=== PATIENT | male | born 1965 | race Caucasian/White ===

== ENCOUNTER → 2018-05-21 08:19 | Outpatient (CLI) | payer MEDICAID, SELFPAY ==
--- NOTE | 2018-05-21 08:46 | XR_ITS ---
XR chest 2V HISTORY: ITS.REASON: cough shortness of air, chest pain, COPD ORDERING PHYSICIAN: Ciara Adame PATIENT AGE: 52 years COMPARISON: 01/03/2018 FINDINGS: The cardiomediastinal silhouette and pulmonary vascularity are within normal limits. There is hyperinflation with attenuation of peripheral pulmonary vessels consistent with COPD. Nodular opacity overlies the left sixth rib anteriorly may be due to nipple shadow and could be confirmed with nipple markers. Cannot completely exclude pulmonary nodule. Lungs are otherwise clear. No acute bony findings. IMPRESSION: COPD, no acute finding. Possible nipple shadow left lower lung zone which could be confirmed with nipple markers to exclude a pulmonary nodule
[2018-05-21 09:13] LABS: Basophils % 0.4 % (0.1-2.0); Eosinophils % 0.5 % (0.1-12.0); Hematocrit 50.4 % (42.0-52.0); Hemoglobin 15.7 g/dL (14.1-18.0); Lymphocytes # 1.4 K/mm3 (0.7-4.5); Lymphocytes % 19.4 % (10-50); Mean Corpuscular HGB Conc 31.2 g/dL (31.8-35.4); Mean Corpuscular Hemoglobin 31.1 pg (27.0-31.2); Mean Corpuscular Volume 99.7 fl (80-94); Mean Platelet Volume 7.6 fl (7.4-10.4); Monocytes # 0.5 K/mm3 (0.1-1.0); Monocytes % 6.5 % (1.7-9.3); Neutrophils # 5.1 K/mm3 (1.8-7.8); Neutrophils % 73.1 % (37.0-80.0); Platelet Count 285 K/mm3 (142-424); Red Blood Count 5.05 M/mm3 (4.60-6.20); Red Cell Distribution Width 13.5 % (11.5-17.5)
[2018-05-21 09:31] LABS: Hemoglobin A1C 5.5 % (0.0-7.0)
[2018-05-21 10:02] LABS: Alanine Aminotransferase 17 U/L (12-78); Albumin Level 3.2 gm/dL (3.4-5.0); Albumin/Globulin Ratio 0.8 (1.1-1.8); Alkaline Phosphatase 76 U/L (46-116); Anion Gap 9.5 mEq/L (5-15); Aspartate Amino Transferase 13 U/L (15-37); Bilirubin,Total 0.4 mg/dL (0.2-1.0); Blood Urea Nitrogen 16 mg/dL (7-18); Calcium 9.5 mg/dL (8.5-10.1); Carbon Dioxide 34 mmol/L (21.0-32.0); Chloride 102 mmol/L (98-107); Chol/HDL Ratio 4.3 (1-3.5); Cholesterol 155 mg/dL (140-200); Creatinine,Serum 0.88 mg/dL (0.70-1.30); Estimated Glomerular Filt Rate 92 ml/min (>60); Free T4 (Free Thyroxine) 1.24 ng/dl (0.76-1.46); GFR (African American) 111 ML/MIN (>60); Globulin 3.8 gm/dl (1.3-3.2); Glucose 100 mg/dL (74-106); HDL Cholesterol 36 mg/dL (27-67); LDL Cholesterol 108 mg/dL (0-130); Potassium 4.5 mmoL/L (3.5-5.1); Sodium 141 mmol/L (136-145); Thyroid Stimulating Hormone 2.46 uIU/ml (0.358-3.740); Triglycerides 53 mg/dL (30-200); VLDL Cholesterol 11 mg/dL (0-40)
[2018-05-22 13:36] LABS: Vitamin D 25 Hydroxy 13.9 ng/mL (30.0-100.0)
== END ==
PROVIDERS: PCP Emergency Medicine; Visit Provider Nurse Practitioner Family
DX: R05 Cough (principal); R53.83 Other fatigue; E55.9 Vitamin D deficiency, unspecified; F17.200 Nicotine dependence, unspecified, uncomplicated; Z13.1 Encounter for screening for diabetes mellitus; Z13.220 Encounter for screening for lipoid disorders
CPT/HCPCS: 36415; 71046; 80053; 80061; 82652; 83036; 84439; 84443; 85025

== ENCOUNTER 2018-09-20 18:27 | Emergency (ER) | payer MEDICAID, SELFPAY ==
--- NOTE | 2018-09-20 18:44 | XR_ITS ---
XR chest portable HISTORY: COPD exacerbation, smoker ITS.REASON: copd ORDERING PHYSICIAN: Sai Anderson MD PATIENT AGE: 53 years COMPARISON: 05/21/2018 FINDINGS: The cardiomediastinal silhouette and pulmonary vascularity are within normal limits. Changes of COPD. Coarsened bronchovascular markings. Consolidation is present in the left lower lobe consistent with pneumonia with small effusion. No acute bony anomalies. IMPRESSION: COPD with left lower lobe pneumonia and small effusion
--- NOTE | 2018-09-20 18:45 | [facility].EDGENADL ---
ED Disposition Clinical Impression: COPD (chronic obstructive pulmonary disease) Qualifiers: COPD type: COPD with acute exacerbation Qualified Code(s): J44.1 - Chronic obstructive pulmonary disease with (acute) exacerbation Disposition: Home, Self-Care Condition on Discharge: Good Instructions: DI for Chronic Obstructive Pulmonary Disease Prescriptions: Albuterol Sulfate [Albuterol Sulfate 2.5mg/0.5ml Neb] 2.5 mg IH Q6 #1 neb levoFLOXacin [Levaquin 500mg tab] 500 mg PO DAILY #7 tab methylPREDNISolone [Medrol 4mg tab] 4 mg PO DIRECTED #21 tab Referrals: Ciara Adame APRN [Primary Care Provider] - - Critical Care Critical Care Time: No Attestation: On 09/20/18, the high probability of a clinically significant, sudden or life threatening deterioration of the following system(s) required my full and direct attention, intervention and personal management. The time I documented below is in addition to time spent performing reported procedures but includes the following listed in this critical care notation. Medical Decision Making - Medical Records Medical records reviewed: Yes: I reviewed the patient's medical records. - [place]twan Inquiry Pt receiving controlled substance: No Vital Signs: 09/20/18 18:54 09/20/18 18:58 Temperature 98.6 F Temperature Source Oral Pulse Rate [Left Radial] 93 H 136 H Respiratory Rate 35 H 35 H Blood Pressure [Right Arm] 174/110 H 150/95 H Blood Pressure Mean [Right Arm] 131 113 Blood Pressure Source [Right Arm] Automatic Cuff Automatic Cuff Blood Pressure Position [Right Arm] Sitting Sitting 02 Sat by Pulse Oximetry 93 L Oxygen Delivery Method Nasal Cannula Oxygen Flow Rate (LPM) 2 - Lab Data Lab results reviewed: Yes: I reviewed the patient's lab results. Lab Results 09/20/18 18:45: WBC 10.9 H, RBC 5.31, Hgb 17.1, Hct 49.9, MCV 94.1 H, MCH 32.3 H, MCHC 34.3, RDW 13.1, Plt Count 231, MPV 7.9, Neut % (Auto) 80.5 H, Lymph % (Auto) 10.0, [place] % (Auto) 8.8, Eos % (Auto) 0.4, Baso % (Auto) 0.4, Neut # (Auto) 8.7 H, Lymph # (Auto) 1.1, [place] # (Auto) 1.0, Eos # (Auto) 0.0, Baso # (Auto) 0.0 09/20/18 18:45: D-Dimer 380 09/20/18 18:45: Sodium 137, Potassium 4.2, Chloride 96 L, Carbon Dioxide 32, Anion Gap 13.2, BUN 16, Creatinine 0.88, Estimated Creat Clear 118, Estimated GFR 91, Est GFR ( Amer) 110, Glucose 116 H, Calcium 9.4, Total Bilirubin 1.0, AST 28, ALT 34, Alkaline Phosphatase 96, Troponin I < 0.02, Total Protein 7.8, Albumin 3.2 L, Globulin 4.6 H, Albumin/Globulin Ratio 0.7 L 09/20/18 18:45: Lactate 1.1 Result diagrams: 09/20/18 18:45 09/20/18 18:45 Orders (Tests/Meds): ED MEDICATIONS Discontinued Medications Generic Name Dose Route Start Last Admin Trade Name Freq PRN Reason Stop Dose Admin Albuterol/Ipratropium 3 ml 09/20/18 18:45 09/20/18 18:58 Duoneb 3ml Neb IH 09/20/18 18:46 3 ml ONCE ONE Administration Methylprednisolone Sodium Succinate 125 mg 09/20/18 18:45 09/20/18 18:58 Solu-Medrol 125mg/2ml Vial IV 09/20/18 18:46 125 mg ONCE ONE Administration ORDERS Category Date Time Status XR chest portable Stat Exams 09/20/18 18:44 Taken Blood Culture Stat Micro 09/20/18 18:45 Received ECG Request by /Griselda Stat Y 09/20/18 18:44 Ordered - Radiology Data #1 Image(s): Chest Image Reviewed: Yes I reviewed the patient's radiology image Preliminary Findings: Abnormal (basilar atelec or early infiltrate) - ECG Data Tracing #1 I reviewed this ECG and interpreted as documented below: Normal Sinus Rhythm: No (st 137 no stemi) Medical Decision Narrative: pt improved, refused hospital admission, levaquin, proventil neb, medrol, see your doctor, return if worse General Adult HPI - General Stated complaint: sob Time Seen by Provider: 09/20/18 18:46 Source of Information: Patient - History of Present Illness HPI narrative: mild to mod cough and short of breath today, hx copd and home oxygen
--- NOTE | 2018-09-20 18:48 | ED_ITS ---
ED Disposition Clinical Impression: COPD (chronic obstructive pulmonary disease) Qualifiers: COPD type: COPD with acute exacerbation Qualified Code(s): J44.1 - Chronic obstructive pulmonary disease with (acute) exacerbation Disposition: Home, Self-Care Condition on Discharge: Good Instructions: DI for Chronic Obstructive Pulmonary Disease Prescriptions: Albuterol Sulfate [Albuterol Sulfate 2.5mg/0.5ml Neb] 2.5 mg IH Q6 #1 neb levoFLOXacin [Levaquin 500mg tab] 500 mg PO DAILY #7 tab methylPREDNISolone [Medrol 4mg tab] 4 mg PO DIRECTED #21 tab Referrals: Ciara Adame APRN [Primary Care Provider] - - Critical Care Critical Care Time: No Attestation: On 09/20/18, the high probability of a clinically significant, sudden or life threatening deterioration of the following system(s) required my full and direct attention, intervention and personal management. The time I documented below is in addition to time spent performing reported procedures but includes the following listed in this critical care notation. Medical Decision Making - Medical Records Medical records reviewed: Yes: I reviewed the patient's medical records. - Antwan Inquiry Pt receiving controlled substance: No Vital Signs: 09/20/18 18:54 09/20/18 18:58 Temperature 98.6 F Temperature Source Oral Pulse Rate [Left Radial] 93 H 136 H Respiratory Rate 35 H 35 H Blood Pressure [Right Arm] 174/110 H 150/95 H Blood Pressure Mean [Right Arm] 131 113 Blood Pressure Source [Right Arm] Automatic Cuff Automatic Cuff Blood Pressure Position [Right Arm] Sitting Sitting 02 Sat by Pulse Oximetry 93 L Oxygen Delivery Method Nasal Cannula Oxygen Flow Rate (LPM) 2 - Lab Data Lab results reviewed: Yes: I reviewed the patient's lab results. Lab Results 09/20/18 18:45: WBC 10.9 H, RBC 5.31, Hgb 17.1, Hct 49.9, MCV 94.1 H, MCH 32.3 H , MCHC 34.3, RDW 13.1, Plt Count 231, MPV 7.9, Neut % (Auto) 80.5 H, Lymph % (A uto) 10.0, [place] % (Auto) 8.8, Eos % (Auto) 0.4, Baso % (Auto) 0.4, Neut # (Auto) 8.7 H, Lymph # (Auto) 1.1, [place] # (Auto) 1.0, Eos # (Auto) 0.0, Baso # (Auto) 0.0 09/20/18 18:45: D-Dimer 380 09/20/18 18:45: Sodium 137, Potassium 4.2, Chloride 96 L, Carbon Dioxide 32, Anion Gap 13.2, BUN 16, Creatinine 0.88, Estimated Creat Clear 118, Estimated GFR 91, Est GFR ( Amer) 110, Glucose 116 H, Calcium 9.4, Total Bilirubin 1.0, AST 28, ALT 34, Alkaline Phosphatase 96, Troponin I < 0.02, Total Protein 7.8, Albumin 3.2 L, Globulin 4.6 H, Albumin/Globulin Ratio 0.7 L 09/20/18 18:45: Lactate 1.1 Result diagrams: 09/20/18 18:45 09/20/18 18:45 Orders (Tests/Meds): ED MEDICATIONS Discontinued Medications Generic Name Dose Route Start Last Admin Trade Name Freq PRN Reason Stop Dose Admin Albuterol/Ipratropium 3 ml 09/20/18 18:45 09/20/18 18:58 Duoneb 3ml Neb IH 09/20/18 18:46 3 ml ONCE ONE Administration Methylprednisolone Sodium Succinate 125 mg 09/20/18 18:45 09/20/18 18:58 Solu-Medrol 125mg/2ml Vial IV 09/20/18 18:46 125 mg ONCE ONE Administration ORDERS Category Date Time Status XR chest portable Stat Exams 09/20/18 18:44 Taken Blood
[2018-09-20 18:54] VITALS: BP 174/110; PULSE 93; RESP 35; TEMP 37; O2SAT 93; BMI 25.7
[2018-09-20 18:58] VITALS: BP 150/95; PULSE 136; RESP 35
[2018-09-20 19:04] LABS: Basophils % 0.4 % (0.1-2.0); Eosinophils % 0.4 % (0.1-12.0); Hematocrit 49.9 % (42.0-52.0); Hemoglobin 17.1 g/dL (14.1-18.0); Lymphocytes # 1.1 K/mm3 (0.7-4.5); Mean Corpuscular HGB Conc 34.3 g/dL (31.8-35.4); Mean Corpuscular Hemoglobin 32.3 pg (27.0-31.2); Mean Corpuscular Volume 94.1 fl (80-94); Mean Platelet Volume 7.9 fl (7.4-10.4); Monocytes % 8.8 % (1.7-9.3); Neutrophils # 8.7 K/mm3 (1.8-7.8); Neutrophils % 80.5 % (37.0-80.0); Platelet Count 231 K/mm3 (142-424); Red Blood Count 5.31 M/mm3 (4.60-6.20); Red Cell Distribution Width 13.1 % (11.5-17.5); White Blood Count 10.9 K/mm3 (4.8-10.8)
[2018-09-20 19:26] LABS: D-Dimer 380 ng/mL (0-400)
[2018-09-20 19:30] LABS: Lactic Acid 1.1 mmol/L (0.4-2.0)
[2018-09-20 19:35] LABS: Alanine Aminotransferase 34 U/L (12-78); Albumin Level 3.2 gm/dL (3.4-5.0); Albumin/Globulin Ratio 0.7 (1.1-1.8); Alkaline Phosphatase 96 U/L (46-116); Anion Gap 13.2 mEq/L (5-15); Aspartate Amino Transferase 28 U/L (15-37); Blood Urea Nitrogen 16 mg/dL (7-18); Calcium 9.4 mg/dL (8.5-10.1); Carbon Dioxide 32 mmol/L (21.0-32.0); Chloride 96 mmol/L (98-107); Creatinine Clearance Estimated 118 mL/min (50-200); Creatinine,Serum 0.88 mg/dL (0.70-1.30); Estimated Glomerular Filt Rate 91 ml/min (>60); GFR (African American) 110 ML/MIN (>60); Globulin 4.6 gm/dl (1.3-3.2); Glucose 116 mg/dL (74-106); Potassium 4.2 mmoL/L (3.5-5.1); Sodium 137 mmol/L (136-145); Total Protein,Serum 7.8 gm/dL (6.4-8.2); Troponin I < 0.02 ng/ml (0.00-0.06)
[2018-09-20 19:56] VITALS: BP 149/88; PULSE 98; RESP 26; TEMP 37; O2SAT 94
== END 2018-09-20 20:01 | disposition home or self-care (01) ==
PROVIDERS: Emergency Provider Emergency Medicine Emergency Medical Services; PCP Nurse Practitioner Family
DX: J44.1 Chronic obstructive pulmonary disease with (acute) exacerbation (principal); Z99.81 Dependence on supplemental oxygen; F17.210 Nicotine dependence, cigarettes, uncomplicated
CPT/HCPCS: 71045; 80053; 83605; 84484; 85025; 85378; 87040; 93005; 96374; 99284

== ENCOUNTER 2019-06-08 19:15 | Observation (INO) ==
[2019-06-08 19:55] LABS: ABG Base Excess 2.7 mmol/L (-2.4-2.3); ABG HCO3 27.7 mmhg (22.0-26.0); ABG Oxygen Saturation 97 % (90-100); ABG PCO2 47.5 mmhg (35.0-45.0); ABG PH 7.38 mmol/L (7.35-7.45); ABG PO2 85.7 mmhg (80-100); ABG TCO2 29.2 mmhg (23-27)
[2019-06-08 19:56] LABS: Allen's Test ACCEPTABLE; Oxygen 32 %
[2019-06-08 19:59] LABS: Basophils % 0.4 % (0.1-2.0); Eosinophils # 0.1 K/mm3 (0.0-0.4); Eosinophils % 1.6 % (0.1-12.0); Hematocrit 49.7 % (42.0-52.0); Hemoglobin 16.5 g/dL (14.1-18.0); Lymphocytes # 1.4 K/mm3 (0.7-4.5); Lymphocytes % 14.9 % (10-50); Mean Corpuscular HGB Conc 33.2 g/dL (31.8-35.4); Mean Corpuscular Volume 98.4 fl (80-94); Mean Platelet Volume 8.5 fl (7.4-10.4); Monocytes # 0.9 K/mm3 (0.1-1.0); Monocytes % 10.3 % (1.7-9.3); Neutrophils # 6.6 K/mm3 (1.8-7.8); Neutrophils % 72.7 % (37.0-80.0); Platelet Count 173 K/mm3 (142-424); Red Blood Count 5.05 M/mm3 (4.60-6.20); Red Cell Distribution Width 13.6 % (11.5-17.5); White Blood Count 9.1 K/mm3 (4.8-10.8)
[2019-06-08 20:10] LABS: Alanine Aminotransferase 52 U/L (21-72); Albumin Level 3.7 g/dL (3.4-5.0); Albumin/Globulin Ratio 0.8 (1.1-1.8); Alkaline Phosphatase 94 U/L (46-116); Anion Gap 11.2 mEq/L (5-15); Aspartate Amino Transferase 32 U/L (15-37); Bilirubin,Total 1.5 mg/dL (0.2-1.0); Blood Urea Nitrogen 11 mg/dL (7-18); Calcium 9.3 mg/dL (8.5-10.1); Carbon Dioxide 32 mmol/L (21.0-32.0); Chloride 102 mmol/L (98-107); Globulin 4.4 gm/dl (1.3-3.2); Glucose 97 mg/dL (74-106); Sodium 141 mmol/L (137-145); Total Protein,Serum 8.1 g/dL (6.4-8.2)
--- NOTE | 2019-06-08 20:40 | Emergency Department Note ---
ED Disposition Clinical Impression: Acute exacerbation of chronic obstructive airways disease, SIRS (systemic inflammatory response syndrome), Tobacco use Disposition: Admitted as Observation Condition on Discharge: Fair Referrals: Ciara Adame APRN [Primary Care Provider] - - Critical Care Critical Care Time: No Attestation: On 06/08/19, the high probability of a clinically significant, sudden or life threatening deterioration of the following system(s) required my full and direct attention, intervention and personal management. The time I documented below is in addition to time spent performing reported procedures but includes the following listed in this critical care notation. Medical Decision Making - Medical Records Medical records reviewed: Yes: I reviewed the patient's medical records. - Antwan Inquiry Pt receiving controlled substance: No Vital Signs: 06/08/19 19:20 06/08/19 19:45 06/08/19 20:10 Temperature 98.5 F Temperature Source Oral Pulse Rate 122 H Pulse Rate [Right Radial] 131 H 121 H Respiratory Rate 24 17 Blood Pressure [Right Arm] 148/93 H 157/104 H Blood Pressure Mean [Right Arm] 111 121 Blood Pressure Source [Right Arm] Automatic Cuff Automatic Cuff Blood Pressure Position [Right Arm] Sitting Sitting 02 Sat by Pulse Oximetry 90 L 95 96 Oxygen Delivery Method Nasal Cannula Nasal Cannula Nasal Cannula Oxygen Flow Rate (LPM) 3 3 - Lab Data Lab results reviewed: Yes: I reviewed the patient's lab results. Lab Results 06/08/19 19:34: Specimen Source Left radial, O2 % 32, ABG pH 7.38, ABG pCO2 47.5 H, ABG pO2 85.7, ABG HCO3 27.7 H, ABG Total CO2 29.2 H, ABG O2 Saturation 97, ABG Base Excess 2.7 H, Gerard Test Acceptable 06/08/19 19:50: WBC 9.1, RBC 5.05, Hgb 16.5, Hct 49.7, MCV 98.4 H, MCH 32.7 H, MCHC 33.2, RDW 13.6, Plt Count 173, MPV 8.5, Neut % (Auto) 72.7, Lymph % (Auto) 14.9, [place] % (Auto) 10.3 H, Eos % (Auto) 1.6, Baso % (Auto) 0.4, Neut # (Auto) 6.6, Lymph # (Auto) 1.4, [place] # (Auto) 0.9, Eos # (Auto) 0.1, Baso # (Auto) 0.0 06/08/19 19:50: Sodium 141, Potassium 4.2, Chloride 102, Carbon Dioxide 32, Anion Gap 11.2, BUN 11, Creatinine 0.80, Estimated Creat Clear 133, Estimated GFR 102, Est GFR ( Amer) 123, Glucose 97, Calcium 9.3, Total Bilirubin 1.5 H, AST 32, ALT 52, Alkaline Phosphatase 94, Troponin I < 0.02, Total Protein 8.1, Albumin 3.7, Globulin 4.4 H, Albumin/Globulin Ratio 0.8 L 06/08/19 19:50: Lactate 1.5 Result diagrams: 06/08/19 19:50 06/08/19 19:50 Orders (Tests/Meds): ED MEDICATIONS Generic Name Dose Route Start Last Admin Trade Name Freq PRN Reason Stop Dose Admin Sodium Chloride 1,000 mls @ 999 mls/hr 06/08/19 20:15 06/08/19 20:06 Sod Chlor 0.9% 1000ml Bag IV 06/08/19 21:15 999 mls/hr .Q1H1M HAYDEE Administration Ceftriaxone Sodium 1 gm/ 50 mls @ 100 mls/hr 06/08/19 20:45 Sodium Chloride IV 06/22/19 20:44 Q24H HAYDEE Protocol Azithromycin 500 mg/ Sodium 250 mls @ 250 mls/hr 06/08/19 20:45 Chloride IV 06/22/19 20:44 Q24H HAYDEE Protocol Discontinued Medications Generic Name Dose Route Start Last Admin Trade Name Freq PRN Reason Stop Dose Admin Albuterol/Ipratropium 3 ml 06/08/19 19:28 06/08/19 19:45 Duoneb 3ml Neb IH 06/08/19 19:29 3 ml ONCE ONE Administration Methylprednisolone Sodium Succinate 125 mg 06/08/19 20:04 06/08/19 20:06 Solu-Medrol 125mg/2ml Vial IV 06/08/19 20:05 125 mg ONCE ONE Administration ORDERS Category Date Time Status XR chest 2V Stat Exams 06/08/19 19:28 Taken Troponin I Q3H Lab 06/08/19 22:30 Ordered Troponin I Q3H Lab 06/09/19 01:30 Ordered Blood Culture Stat Micro 06/08/19 20:08 Received Sputum Culture & Gram Stain Stat Micro 06/08/19 19:47 Received - Radiology Data #1 Image(s): Chest Image Reviewed: Yes I reviewed the patient's radiology image Preliminary Findings: Abnormal (copd) - AUBREE Score for Non-Stemi Age of Patient: 50-59 years old Heart Rate: 110-149 bpm Systolic Blood Pressure: 140-159 mmHg Serum Creatinine: 0.80-1.19 mg/dl CHF [place] Class: I-No CHF Other Risk Factors: None Non-Stemi Risk Score: 96 Resp/SOB HPI - General Chief Complaint: Shortness of Breath/Dyspnea Stated Complaint: Cough, SOA Time Seen by Provider: 06/08/19 20:00 Mode of Arrival: Wheelchair Source of Information: Patient, Spouse, Medical Record Limitations: No Limitations Description of Symptoms (Recalled from ER Triage Doc. by RN): Pt c/o increased SOA and productive cough x3 days. Pt is home O2 dependent at 2L per [place], pt report hx of COPD. - History of Present Illness progressive sob with colored sputum over the last 4 days - he has o2 dep copd - no chest pain or heart disease - uses tob Complaint: shortness of breath, cough Onset (ago): day(s) Severity: moderate Known history of: COPD Associated symptoms: denies other symptoms Treatment prior to arrival: oxygen - Related Data Home oxygen amount: 2 liters Previous Rx's Medication Instructions Recorded albuterol sulfate 2.5 mg INHALATION Q4-6H PRN #90 ml 11/12/18 albuterol sulfate 90 mcg/actuation 2 puff INHALATION Q4-6H PRN #18 g 03/23/19 aerosol inhaler Allergies Allergy/AdvReac Type Severity Reaction Status Date / Time aspirin [ASPIRIN] Allergy Mild Verified 05/01/19 11:02 codeine [CODEINE] Allergy Mild Verified 05/01/19 11:02 ibuprofen [IBUPROFEN] Allergy Unknown Verified 05/01/19 11:02 [facility] History - Hepatitis A Screen Drug use history?: No High risk sexual behaviors?: No History of sexually transmitted infection?: No Currently employed?: No Childcare worker?: No Do you have indoor plumbing?: Yes Do you have electricity?: Yes Attestation statement:: This patient has been screened for Hepatitis A risk factors. I have reviewed the patient's past medical history: Yes Medical History: Denies:: Cancer, Diabetes Mellitus Type 1, Diabetes Mellitus Type 2, Home Oxygen, MRSA Laterality Cases: Left: ACL Repair, Bilateral: Other Amputation: No Fractures: No - Social History Smoking Status: Current every day smoker Tobacco Type: cigarettes # Packs/Day (cigarettes): 2 Alcohol Intake: never Alcohol Intake Frequency:: a few times a month Substance Use Type: denies use Occupational Status: other Family Hx:: Cancer, Coronary Artery Disease ROS Obtained: Yes All systems reviewed & no additional complaints - Constitutional Constitutional: Denies fever(s) - Eyes Eyes: Denies change in vision - ENT Ears, Nose, Mouth, and Throat: Denies sore throat - Cardiovascular Cardiovascular: Denies chest pain at rest, Reports dyspnea - Respiratory Respiratory: Yes change in phlegm color, Yes cough, No coughing up blood - Gastrointestinal Gastrointestingal: Denies: vomiting - Genitourinary Male Genitourinary: Denies hematuria - Musculoskeletal Musculoskeletal: Denies joint pain, Denies joint swelling - Integumentary/Breasts Skin/Breast: Denies rash - Neurologic Neurologic: Denies abnormal speech Physical Exam - General General appearance: alert - Head Head exam: normocephalic - Eye Eye exam: Present: PERRL, EOMI. Absent: scleral icterus - ENT ENT exam: Present: mucous membranes moist - Neck Neck exam: Present: trachea midline - Respiratory Respiratory exam: Present: wheezes, other (rhonchi ). Absent: respiratory distress - Cardiovascular Cardiovascular exam: Present: tachycardia, systolic murmur - Abdominal Exam Abdominal exam: Present: soft - Extremities Exam Extremities exam: Present: full ROM - Neurological Exam Neurological exam: Present: alert, oriented X3, CN II-XII intact - Psychiatric Psychiatric exam: Present: normal affect - Skin Skin exam: Absent: rash
[2019-06-09 07:01] LABS: Basophils % 0.2 % (0.1-2.0); Eosinophils % 0.3 % (0.1-12.0); Hematocrit 50.2 % (42.0-52.0); Hemoglobin 16.3 g/dL (14.1-18.0); Lymphocytes # 0.8 K/mm3 (0.7-4.5); Lymphocytes % 11.5 % (10-50); Mean Corpuscular HGB Conc 32.5 g/dL (31.8-35.4); Mean Corpuscular Volume 101.8 fl (80-94); Mean Platelet Volume 8.5 fl (7.4-10.4); Monocytes # 0.2 K/mm3 (0.1-1.0); Monocytes % 2.2 % (1.7-9.3); Neutrophils % 85.7 % (37.0-80.0); Platelet Count 177 K/mm3 (142-424); Red Blood Count 4.93 M/mm3 (4.60-6.20); Red Cell Distribution Width 13.5 % (11.5-17.5)
[2019-06-09 07:18] LABS: Anion Gap 10.6 mEq/L (5-15); Calcium 9.5 mg/dL (8.5-10.1); Chol/HDL Ratio 2.2 (1-3.5)
--- NOTE | 2019-06-09 07:34 | Pharmacy Consult Notes ---
[facility] Pharmacy VTE Monitoring - Patient Demographics Admission date: 06/08/19 Report Date: 06/09/19 Time: 07:34 Allergies/Adverse Reactions: Patient Allergies aspirin [ASPIRIN] Allergy (Mild, Verified 05/01/19 11:02) codeine [CODEINE] Allergy (Mild, Verified 05/01/19 11:02) ibuprofen [IBUPROFEN] Allergy (Unknown, Verified 05/01/19 11:02) acetaminophen [From Tylenol] Allergy (Verified 06/08/19 23:20) Height: 1.8 m Weight: 85.842 kg Patient Problems: Current Active Problems Acute exacerbation of chronic obstructive airways disease (Acute) SIRS (systemic inflammatory response syndrome) (Acute) Tobacco use (Acute) - VTE Risk Labs: VTE Related Lab Results Hgb 16.3 g/dL (14.1-18.0) 06/09/19 06:11 Hct 50.2 % (42.0-52.0) 06/09/19 06:11 Plt Count 177 K/mm3 (142-424) 06/09/19 06:11 BUN 14 mg/dL (7-18) D 06/09/19 06:11 Creatinine 0.81 mg/dL (0.70-1.30) 06/09/19 06:11 Estimated Creat Clear 131 mL/min (50-200) 06/09/19 06:11 VTE Score: 5 VTE Risk Level: Low Risk - Prophylaxis VTE Prophylaxis Ordered?: Yes Types of VTE Prophylaxis: TEDS Knee High Location of Applied Device: Bilateral Lower Extremeties
[2019-06-09 08:58] LABS: Lymphocytes % 14 % (10-50); Monocytes % 2 % (2-9); Neutrophils % 84 % (42-76); Total Cells Counted 100
[2019-06-09 08:59] LABS: Anisocytosis 1+; Macrocytosis 1+
--- NOTE | 2019-06-09 09:29 | Electrocardiograph Report ---
APPROVED REPORT Exam: Resting ECG HR:127 bpm ECG Measurements Heart Rate 127 AXES TN 130 P 83 QRSd 84 QRS 134 QT 310 T81 QTc 450 <Conclusion> Sinus tachycardia Right atrial enlargement Right axis deviation Pulmonary disease pattern Abnormal ECG Electronically signed by : Keith Blas, 06/09/2019 09:29:26
--- NOTE | 2019-06-09 10:03 | H&P/Discharge Summary ---
General - General Admission date:: 06/08/19 Discharge date: 06/09/19 *Admission Date: 06/08/19 *History of present illness: 53-year-old male patient sitting up in bed oxygen on at 2 L per nasal cannula. He reports feeling better this morning. Discussed discharging back home today, he is agreeable to this. Will start Symbicort inhaler and follow-up in office on Saturday progressive sob with colored sputum over the last 4 days - he has o2 dep copd - no chest pain or heart disease - uses tob (Per Dr. Carr). 06/08/2019 CXR: IMPRESSION: No acute findings. Dictated by: Dr. Tian, In the ER he received Solu-Medrol IV, DuoNeb breathing treatments, ceftriaxone IV, and azithromycin IV [facility] History Medical History: Denies:: Cancer, Diabetes Mellitus Type 1, Diabetes Mellitus Type 2, Home Oxygen, MRSA *Have you ever received a pneumonia vaccine?: No *Have you received a flu vaccine this season?: No Laterality Cases: Left: ACL Repair, Bilateral: Other Amputation: No Fractures: No - *Social History Educational Level: Completed Grade School Smoking Status: Current every day smoker Tobacco Type: cigarettes # Packs/Day (cigarettes): 6 Alcohol Intake: never Alcohol Intake Frequency:: a few times a month Substance Use Type: denies use *Occupational Status:: disabled Housing: house Household Members: friend(s) *Travel in the last 8 weeks: None Family Hx:: Cancer, Coronary Artery Disease, Diabetes Review of Systems - Constitutional Denies anorexia - Eyes Denies change in vision, Denies sensitivity to light - ENT Denies difficulty swallowing, Denies sore throat - *Cardiovascular Reports shortness of breath, Denies chest pain - *Respiratory Reports chest congestion, Reports cough, Reports shortness of breath - *Gastrointestinal Denies abdominal pain, Denies difficulty swallowing - *Genitourinary Denies difficulty urinating, Denies frequent nighttime urination - *Musculoskeletal Denies joint pain, Denies neck pain - Integumentary/Breasts Denies yellowing of the skin - *Neurologic Denies abnormal speech, Denies dizziness - Psychiatric Denies hearing things others do not hear, Denies behavioral changes - Endocrine Denies heat intolerance, Denies rapid, pounding, or irregular heartbeat - Hematologic/Lymphatic Denies easy bleeding, Denies easy bruising - Allergic/Immunologic Denies GI upset with certain foods, Denies tongue swelling Exam Vital signs and Labs for Last 24 Hours: Temp Pulse Resp BP Pulse Ox 97.5 F L 107 H 20 139/90 94 L 06/09/19 08:00 06/09/19 08:00 06/09/19 08:00 06/09/19 08:00 06/09/19 08:00 Laboratory Results - last 24 hr 06/08/19 19:34: Specimen Source Left radial, O2 % 32, ABG pH 7.38, ABG pCO2 47.5 H, ABG pO2 85.7, ABG HCO3 27.7 H, ABG Total CO2 29.2 H, ABG O2 Saturation 97, ABG Base Excess 2.7 H, Gerard Test Acceptable 06/08/19 19:50: WBC 9.1, RBC 5.05, Hgb 16.5, Hct 49.7, MCV 98.4 H, MCH 32.7 H, MCHC 33.2, RDW 13.6, Plt Count 173, MPV 8.5, Neut % (Auto) 72.7, Lymph % (Auto) 14.9, [place] % (Auto) 10.3 H, Eos % (Auto) 1.6, Baso % (Auto) 0.4, Neut # (Auto) 6.6, Lymph # (Auto) 1.4, [place] # (Auto) 0.9, Eos # (Auto) 0.1, Baso # (Auto) 0.0 06/08/19 19:50: Sodium 141, Potassium 4.2, Chloride 102, Carbon Dioxide 32, Anion Gap 11.2, BUN 11, Creatinine 0.80, Estimated Creat Clear 133, Estimated GFR 102, Est GFR ( Amer) 123, Glucose 97, Calcium 9.3, Total Bilirubin 1.5 H, AST 32, ALT 52, Alkaline Phosphatase 94, Troponin I < 0.02, Total Protein 8.1, Albumin 3.7, Globulin 4.4 H, Albumin/Globulin Ratio 0.8 L 06/08/19 19:50: Lactate 1.5 06/08/19 22:40: Troponin I < 0.02 06/09/19 01:45: Troponin I < 0.02 06/09/19 06:11: WBC 7.0, RBC 4.93, Hgb 16.3, Hct 50.2, MCV 101.8 H, MCH 33.1 H, MCHC 32.5, RDW 13.5, Plt Count 177, MPV 8.5, Neut % (Auto) 85.7 H, Lymph % (Auto) 11.5, [place] % (Auto) 2.2, Eos % (Auto) 0.3, Baso % (Auto) 0.2, Neut # (Auto) 6.0, Lymph # (Auto) 0.8, [place] # (Auto) 0.2, Eos # (Auto) 0.0, Baso # (Auto) 0.0, Total Counted 100, Neutrophils % (Manual) 84 H, Lymphocytes % (Manual) 14, Monocytes % (Manual) 2, Platelet Estimate Normal, Anisocytosis 1+, Macrocytosis 1+ 06/09/19 06:11: Sodium 138, Potassium 4.6, Chloride 99, Carbon Dioxide 33 H, Anion Gap 10.6, BUN 14 D, Creatinine 0.81, Estimated Creat Clear 131, Estimated GFR 100, Est GFR ( Amer) 122, Glucose 165 H D, Calcium 9.5, Magnesium 1.9, Triglycerides 49, Cholesterol 159, LDL Cholesterol 76, VLDL Cholesterol 10, HDL Cholesterol 73 H, Cholesterol/HDL Ratio 2.2 I & O for Last 24 hours: Intake & Output 06/06/19 06/07/19 06/08/19 06/09/19 23:59 23:59 23:59 23:59 Intake Total 1290 / 1290 830 / 830 Output Total 300 / 300 Balance 1290 / 990 530 / 530 Weight 189 lb 4 oz 189 lb 3.987 oz Microbiology Reports for the Last 24 Hours: Microbiology 06/08/19 19:47 Sputum - Expectorated Sputum Gram Stain - Final 06/08/19 19:47 Sputum - Expectorated Sputum Sputum Culture - Preliminary - Constitutional no acute distress - *Routine HEENT Exam Head: Present: normocephalic, atraumatic. Absent: tenderness of temporal artery Eye: Present: EOMI, PERRL, normal accommodation. Absent: periorbital tenderness ENT: Present: mucous membranes moist. Absent: sinus tenderness - *Routine Neck Exam Present: supple, full ROM. Absent: JVD - *Routine Respiratory Exam Present: rhonchi, wheezes. Absent: accessory muscle use - *Routine Cardiovascular Exam Present: RRR - *Routine Abdominal Exam Present: soft, normoactive bowel sounds. Absent: tenderness, firm - *Routine Extremities Exam Present: full ROM, pulses intact. Absent: calf tenderness - Routine Back/Spine/Pelvis Exam Back/Spine: Present: full ROM. Absent: CVA tenderness - *Routine Skin Exam Present: intact, warm. Absent: jaundice - *Routine Neurological Exam Present: alert, oriented X3, CN II-XII intact. Absent: altered mental status - Routine Psychiatric Exam Present: normal affect, normal thought process. Absent: auditory hallucinations Hospital Course Hospital Course: 53-year-old male patient sitting up in bed oxygen on at 2 L per nasal cannula. He reports feeling better this morning. Discussed discharging back home today, he is agreeable to this. Will start Symbicort inhaler and follow-up in office on Saturday progressive sob with colored sputum over the last 4 days - he has o2 dep copd - no chest pain or heart disease - uses tob (Per Dr. Carr). 06/08/2019 CXR: IMPRESSION: No acute findings. Dictated by: Dr. Tian, In the ER he received Solu-Medrol IV, DuoNeb breathing treatments, ceftriaxone IV, and azithromycin IV Will D/C home today Results Labs on day of discharge: Labs from last 24 hours 06/09/19 06/09/19 06/09/19 06:11 06:11 01:45 WBC 7.0 RBC 4.93 Hgb 16.3 Hct 50.2 MCV 101.8 H MCH 33.1 H MCHC 32.5 RDW 13.5 Plt Count 177 MPV 8.5 Neut % (Auto) 85.7 H Lymph % (Auto) 11.5 [place] % (Auto) 2.2 Eos % (Auto) 0.3 Baso % (Auto) 0.2 Neut # (Auto) 6.0 Lymph # (Auto) 0.8 [place] # (Auto) 0.2 Eos # (Auto) 0.0 Baso # (Auto) 0.0 Total Counted 100 Neutrophils % (Manual) 84 H Lymphocytes % (Manual) 14 Monocytes % (Manual) 2 Platelet Estimate Normal Anisocytosis 1+ Macrocytosis 1+ Specimen Source O2 % ABG pH ABG pCO2 ABG pO2 ABG HCO3 ABG Total CO2 ABG O2 Saturation ABG Base Excess Gerard Test Sodium 138 Potassium 4.6 Chloride 99 Carbon Dioxide 33 H Anion Gap 10.6 BUN 14 D Creatinine 0.81 Estimated Creat Clear 131 Estimated GFR 100 Est GFR ( Amer) 122 Glucose 165 H D Lactate Calcium 9.5 Magnesium 1.9 Total Bilirubin AST ALT Alkaline Phosphatase Troponin I < 0.02 Total Protein Albumin Globulin Albumin/Globulin Ratio Triglycerides 49 Cholesterol 159 LDL Cholesterol 76 VLDL Cholesterol 10 HDL Cholesterol 73 H Cholesterol/HDL Ratio 2.2 06/08/19 06/08/19 06/08/19 22:40 19:50 19:50 WBC RBC Hgb Hct MCV MCH MCHC RDW Plt Count MPV Neut % (Auto) Lymph % (Auto) [place] % (Auto) Eos % (Auto) Baso % (Auto) Neut # (Auto) Lymph # (Auto) [place] # (Auto) Eos # (Auto) Baso # (Auto) Total Counted Neutrophils % (Manual) Lymphocytes % (Manual) Monocytes % (Manual) Platelet Estimate Anisocytosis Macrocytosis Specimen Source O2 % ABG pH ABG pCO2 ABG pO2 ABG HCO3 ABG Total CO2 ABG O2 Saturation ABG Base Excess Gerard Test Sodium 141 Potassium 4.2 Chloride 102 Carbon Dioxide 32 Anion Gap 11.2 BUN 11 Creatinine 0.80 Estimated Creat Clear 133 Estimated GFR 102 Est GFR ( Amer) 123 Glucose 97 Lactate 1.5 Calcium 9.3 Magnesium Total Bilirubin 1.5 H AST 32 ALT 52 Alkaline Phosphatase 94 Troponin I < 0.02 < 0.02 Total Protein 8.1 Albumin 3.7 Globulin 4.4 H Albumin/Globulin Ratio 0.8 L Triglycerides Cholesterol LDL Cholesterol VLDL Cholesterol HDL Cholesterol Cholesterol/HDL Ratio 06/08/19 06/08/19 19:50 19:34 WBC 9.1 RBC 5.05 Hgb 16.5 Hct 49.7 MCV 98.4 H MCH 32.7 H MCHC 33.2 RDW 13.6 Plt Count 173 MPV 8.5 Neut % (Auto) 72.7 Lymph % (Auto) 14.9 [place] % (Auto) 10.3 H Eos % (Auto) 1.6 Baso % (Auto) 0.4 Neut # (Auto) 6.6 Lymph # (Auto) 1.4 [place] # (Auto) 0.9 Eos # (Auto) 0.1 Baso # (Auto) 0.0 Total Counted Neutrophils % (Manual) Lymphocytes % (Manual) Monocytes % (Manual) Platelet Estimate Anisocytosis Macrocytosis Specimen Source Left radial O2 % 32 ABG pH 7.38 ABG pCO2 47.5 H ABG pO2 85.7 ABG HCO3 27.7 H ABG Total CO2 29.2 H ABG O2 Saturation 97 ABG Base Excess 2.7 H Gerard Test Acceptable Sodium Potassium Chloride Carbon Dioxide Anion Gap BUN Creatinine Estimated Creat Clear Estimated GFR Est GFR ( Amer) Glucose Lactate Calcium Magnesium Total Bilirubin AST ALT Alkaline Phosphatase Troponin I Total Protein Albumin Globulin Albumin/Globulin Ratio Triglycerides Cholesterol LDL Cholesterol VLDL Cholesterol HDL Cholesterol Cholesterol/HDL Ratio Preliminary micro results at discharge 06/08/19 19:47 Sputum Culture - Preliminary Sputum - Expectorated Sputum - Additional Comments Rounded with Dr. Carr, all orders per Dr. Carr 1. We will discharge home today 2. Steroid big taper 3. Azithromycin, Omnicef p.o. 4. Symbicort inhaler 5. Follow-up in office Saturday DS: Diagnosis - Discharge Diagnosis (1) Acute exacerbation of chronic obstructive airways disease Status: Acute (2) Tobacco use Status: Acute (3) COPD (chronic obstructive pulmonary disease) Status: Acute (4) SIRS (systemic inflammatory response syndrome) Status: Acute Discharge Plan - Patient Discharge Instructions ACTIVITY: Continue current activity DIET: continue same diet Patient Instructions: Chronic Obstructive Pulmonary Disease - Follow up Plan Follow up with: Xi Mccormack APRN [Advanced Practice Nurse] - 06/12/19 Disposition: Home, Self-Usp Medications: Home Medications Medication Instructions Recorded Confirmed Type albuterol sulfate 2.5 mg INHALATION Q4-6H PRN #90 ml 11/12/18 06/08/19 Rx albuterol sulfate 90 mcg/actuation 2 puff INHALATION Q4-6H PRN #18 g 03/23/19 06/08/19 Rx aerosol inhaler Azithromycin [Azithromycin 500mg 500 mg PO DAILY 6 Days #6 tab 06/09/19 Rx Tab] Budesonide/Formoterol Fumarate 2 puffs IH BID #1 inh 06/09/19 Rx [Symbicort 80-4.5 Mcg Inhaler] Cefdinir [Omnicef 300mg Capsule] 300 mg PO BID 6 Days #12 cap 06/09/19 Rx predniSONE [Prednisone 10mg Tab 10 mg PO DAILY 15 Days #35 tab 02/18/20 Rx Dose-Pack] Prescriptions/Medication Reconciliation: New Budesonide/Formoterol Fumarate [Symbicort 80-4.5 Mcg Inhaler] 2 puffs IH BID #1 inh Cefdinir [Omnicef 300mg Capsule] 300 mg PO BID 6 Days #12 cap predniSONE [Prednisone 10mg Tab Dose-Pack] 10 mg PO DAILY 15 Days #35 tab Azithromycin [Azithromycin 500mg Tab] 500 mg PO DAILY 6 Days #6 tab Continued albuterol sulfate 2.5 mg INHALATION Q4-6H PRN #90 ml PRN Reason: soa albuterol sulfate 90 mcg/actuation aerosol inhaler 2 puff INHALATION Q4-6H PRN #18 g PRN Reason: soa - Problem Reconciliation Problems Reviewed?: Yes
== END 2019-06-09 16:15 | disposition home or self-care (01) ==
LOC: 2ND 19:15 → ER 19:15 → 2ND 21:32
PROVIDERS: ADMIT Emergency Medicine; ATTEND Emergency Medicine
CPT/HCPCS: 36415; 71020; 71046; 80048; 80053; 80061; 82803; 83605; 83735; 84484; 85007; 85025; 87040; 87070; 87077; 87186; 87205; 93005; 94640; 94761; 96367; 96374; 96375; 99284; G0378; J0456

== ENCOUNTER → 2019-06-12 14:35 | Outpatient (CLI) | payer MEDICAID, SELFPAY ==
[2019-06-12 15:48] LABS: T4 (Thyroxine) 7.5 ug/dl (5.53-11.0)
[2019-06-12 16:01] LABS: Thyroid Stimulating Hormone 1.77 uIU/mL (0.465-4.68)
[2019-06-12 17:55] LABS: Hemoglobin A1C 5.3 % (4.0-6.0)
== END ==
PROVIDERS: Visit Provider Nurse Practitioner Family
DX: R73.9 Hyperglycemia, unspecified (principal)
CPT/HCPCS: 83036; 84436; 84443

== ENCOUNTER → 2021-03-08 18:45 | Outpatient (CLI) | payer MEDICAID, SELFPAY ==
[2021-03-08 19:13] LABS: Basophils # 0.1 K/mm3 (0-0.2); Eosinophils # 0.4 K/mm3 (0.0-0.4); Eosinophils % 4.1 % (0.1-12.0); Hematocrit 46.5 % (42.0-52.0); Hemoglobin 14.9 g/dL (14.1-18.0); Lymphocytes # 2.2 K/mm3 (0.7-4.5); Lymphocytes % 21.5 % (10-50); Mean Corpuscular Hemoglobin 30.3 pg (27.0-31.2); Mean Corpuscular Volume 94.8 fl (80-94); Mean Platelet Volume 9.3 fl (7.4-10.4); Monocytes # 0.7 K/mm3 (0.1-1.0); Neutrophils # 6.8 K/mm3 (1.8-7.8); Neutrophils % 66.4 % (37.0-80.0); Platelet Count 266 K/mm3 (142-424); Red Blood Count 4.91 M/mm3 (4.60-6.20); Red Cell Distribution Width 13.2 % (11.5-17.5); White Blood Count 10.2 K/mm3 (4.8-10.8)
[2021-03-08 20:18] LABS: Alanine Aminotransferase 15 U/L (12-78); Albumin Level 4.4 g/dl (3.5-5.0); Albumin/Globulin Ratio 1.5 (1.1-1.8); Alkaline Phosphatase 78 U/L (38-126); Anion Gap 11.9 mEq/L (5-15); Aspartate Amino Transferase 22 U/L (17-59); Bilirubin,Total 0.5 mg/dl (0.2-1.3); Blood Urea Nitrogen 16 mg/dl (9-20); Calcium 9.4 mg/dl (8.4-10.2); Carbon Dioxide 39 mmol/L (22.0-30.0); Chloride 97 mmol/L (98-107); Chol/HDL Ratio 4.9 (1-3.5); Cholesterol 200 mg/dl (140-200); Estimated Glomerular Filt Rate 101 ml/min (>60); GFR (African American) 122 ML/MIN (>60); Glucose 94 mg/dl (74-100); HDL Cholesterol 41 mg/dl (40-60); Potassium 4.9 mmoL/L (3.5-5.1); Sodium 143 mmol/L (136-145); Total Protein,Serum 7.4 g/dl (6.3-8.2); Triglycerides 171 mg/dl (30-150); VLDL Cholesterol 34 mg/dL (0-40)
[2021-03-08 20:30] LABS: Direct LDL Cholesterol 139.31 mg/dL (100-129)
[2021-03-08 20:34] LABS: 25-OH Vitamin D, Total 21.7 ng/mL (30-100)
[2021-03-08 20:35] LABS: T4 (Thyroxine) 9.8 ug/dl (5.53-11.0)
[2021-03-08 20:49] LABS: Thyroid Stimulating Hormone 1.99 uIU/mL (0.465-4.68)
== END ==
PROVIDERS: Visit Provider Nurse Practitioner Family
DX: J44.9 Chronic obstructive pulmonary disease, unspecified (principal); Z72.0 Tobacco use; E55.9 Vitamin D deficiency, unspecified
CPT/HCPCS: 80053; 80061; 82306; 84436; 84443; 85025

== ENCOUNTER → 2021-03-14 14:19 | Outpatient (CLI) | payer MEDICAID, SELFPAY ==
--- NOTE | 2021-03-14 14:24 | XR_ITS ---
PROCEDURE: XR LUMBAR SPINE 6V W BENDING CLINICAL INDICATION: back pain COMPARISON: No exams were available for comparison FINDINGS: Minimal lumbar curvature convex left. Degenerative disc disease L4-5. 5 mm anterolisthesis L5 on S1. Generalized vascular calcification. Other findings:Flexion and extension views show no abnormal subluxation IMPRESSION: Degenerative disc disease L4-5. Mild anterolisthesis L5 on S1. No abnormal subluxation in flexion or extension Dictated by: Gerard Marcos MD 03/14/2021 15:37 Gerard Marcos MD in [place] 03/14/2021 15:37
== END ==
PROVIDERS: PCP Nurse Practitioner Family; Visit Provider Nurse Practitioner Family
DX: M54.9 Dorsalgia, unspecified (principal); M54.50 Low back pain, unspecified; G89.29 Other chronic pain
CPT/HCPCS: 72114

== ENCOUNTER → 2021-03-20 18:24 | Outpatient (CLI) | payer MEDICAID, SELFPAY ==
[2021-03-20 20:30] LABS: Amphetamine/Metha Screen,Urine Negative ng/ml (<1000)
[2021-03-20 20:31] LABS: Barbiturates Screen,Urine Negative ng/ml (<200)
[2021-03-20 20:32] LABS: Benzodiazepines Screen,Urine Negative ng/ml (<200); Cannabinoid Screen,Urine Negative ng/ml (<50)
[2021-03-20 20:33] LABS: Cocaine Screen,Urine Negative ng/ml (<300)
[2021-03-20 20:34] LABS: Methadone Screen,Urine Negative ng/ml (<300); Opiate Screen,Urine Negative ng/ml (<300)
[2021-03-20 20:35] LABS: Phencyclidine Screen,Urine Negative ng/ml (<25)
== END ==
PROVIDERS: Visit Provider Nurse Practitioner Family
DX: M54.9 Dorsalgia, unspecified (principal)
CPT/HCPCS: 80305

== ENCOUNTER 2021-03-29 09:10 | Outpatient (RCR) | payer MEDICAID, SELFPAY | END 2021-03-29 10:28 | disposition home or self-care (01) | LOC: PT 09:10 | PROVIDERS: Visit Provider Nurse Practitioner Family | DX: M54.42 Lumbago with sciatica, left side (principal); M54.41 Lumbago with sciatica, right side; G89.29 Other chronic pain | CPT/HCPCS: 97542 ==

== ENCOUNTER → 2021-03-30 08:34 | Outpatient (CLI) | payer MEDICAID, SELFPAY ==
--- NOTE | 2021-03-30 08:35 | MR_ITS ---
PROCEDURE: MR LUMBAR SPINE WO CON CLINICAL INDICATION: back pain COMPARISON: CR XR LUMBAR SPINE 6V W BENDING from 03/14/2021 TECHNIQUE: Standard multiplanar multiecho sequences are performed without contrast. 3-D MIP and myelographic images are also rendered and reviewed FINDINGS: There is normal alignment. The spinal cord ends at the L1 level. L1-L2: Unremarkable. L2-L3: Unremarkable. L3-L4: Minimal circumferential bulging disc with mild facet and ligamentum hypertrophic change and mild disc desiccation with mild right-sided foraminal narrowing. L4-5: Degenerative disc disease with circumferential bulging disc and facet and ligamentum hypertrophy with bilateral lateral recess narrowing left greater than right. There is a small broad based left foraminal and lateral disc osteophyte complex . L5-S1: Mild degenerative disc disease with mild bulging disc with facet and ligamentum hypertrophic change and with mild bilateral foraminal narrowing. This is slightly greater on the left. No extruded herniated disc or bony canal stenosis. IMPRESSION: 1. L3-L4: Minimal circumferential bulging disc with mild facet and ligamentum hypertrophic change and mild disc desiccation with mild right-sided foraminal narrowing. 2. L4-5: Degenerative disc disease with circumferential bulging disc and facet and ligamentum hypertrophy with bilateral lateral recess narrowing left greater than right. There is a small broad based left foraminal and lateral disc osteophyte complex . 3. L5-S1: Mild degenerative disc disease with mild bulging disc with facet and ligamentum hypertrophic change and with mild bilateral foraminal narrowing. This is slightly greater on the left. 4. No extruded herniated disc or bony canal stenosis Dictated by: Gerard Marcos MD 03/31/2021 09:06 Gerard Marcos MD in [place] 03/31/2021 09:06
== END ==
PROVIDERS: PCP Nurse Practitioner Family; Visit Provider Nurse Practitioner Family
DX: M54.9 Dorsalgia, unspecified (principal); M54.50 Low back pain, unspecified
CPT/HCPCS: 72148; 76376

== ENCOUNTER → 2021-05-01 10:51 | Outpatient (POV) | payer MEDICAID, SELFPAY ==
[2021-05-01 11:28] VITALS: BP 148/79; PULSE 111; RESP 18; O2SAT 91; BMI 30.7
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
== END ==
PROVIDERS: Visit Provider Clinical Nurse Specialist Family Health
DX: M25.50 Pain in unspecified joint (principal); M51.36 Other intervertebral disc degeneration, lumbar region
CPT/HCPCS: 99202; G0463

== ENCOUNTER → 2021-05-19 17:45 | Outpatient (CLI) | payer MEDICAID, SELFPAY ==
[2021-05-19 18:50] LABS: Amphetamine/Metha Screen,Urine Negative ng/ml (<1000)
[2021-05-19 18:51] LABS: Barbiturates Screen,Urine Negative ng/ml (<200)
[2021-05-19 18:52] LABS: Benzodiazepines Screen,Urine Positive ng/ml (<200); Cannabinoid Screen,Urine Negative ng/ml (<50)
[2021-05-19 18:53] LABS: Cocaine Screen,Urine Negative ng/ml (<300)
[2021-05-19 18:54] LABS: Methadone Screen,Urine Negative ng/ml (<300); Opiate Screen,Urine Negative ng/ml (<300)
[2021-05-19 18:56] LABS: Phencyclidine Screen,Urine Negative ng/ml (<25)
== END ==
PROVIDERS: Visit Provider Nurse Practitioner Family
DX: F41.9 Anxiety disorder, unspecified (principal)
CPT/HCPCS: 80305

== ENCOUNTER → 2021-07-19 14:03 | Outpatient (CLI) | payer MEDICAID, SELFPAY ==
[2021-07-19 14:25] LABS: Basophils # 0.1 K/mm3 (0-0.2); Basophils % 0.7 % (0.1-2.0); Eosinophils # 0.4 K/mm3 (0.0-0.4); Eosinophils % 5.4 % (0.1-12.0); Hematocrit 46.7 % (42.0-52.0); Hemoglobin 14.9 g/dL (14.1-18.0); Lymphocytes # 1.5 K/mm3 (0.7-4.5); Lymphocytes % 18.5 % (10-50); Mean Corpuscular HGB Conc 31.8 g/dL (31.8-35.4); Mean Corpuscular Hemoglobin 30.9 pg (27.0-31.2); Mean Platelet Volume 8.7 fl (7.4-10.4); Monocytes # 0.4 K/mm3 (0.1-1.0); Monocytes % 5.5 % (1.7-9.3); Neutrophils # 5.5 K/mm3 (1.8-7.8); Neutrophils % 69.9 % (37.0-80.0); Platelet Count 236 K/mm3 (142-424); Red Blood Count 4.81 M/mm3 (4.60-6.20); Red Cell Distribution Width 13.4 % (11.5-17.5); White Blood Count 7.9 K/mm3 (4.8-10.8)
[2021-07-19 15:21] LABS: C-Reactive Protein 17.4 mg/L (0-4)
[2021-07-21 08:24] LABS: Alpha-1-Antitrypsin 173 mg/dL (101-187)
== END ==
PROVIDERS: Visit Provider Internal Medicine Pulmonary Disease
DX: R06.00 Dyspnea, unspecified (principal); J44.9 Chronic obstructive pulmonary disease, unspecified; J45.909 Unspecified asthma, uncomplicated
CPT/HCPCS: 36415; 82103; 85025; 86140; 87070; 87077; 87186; 87205

== ENCOUNTER → 2021-07-21 13:32 | Outpatient (CLI) | payer MEDICAID, SELFPAY | PROVIDERS: PCP Nurse Practitioner Family; Visit Provider Internal Medicine Pulmonary Disease | DX: R06.09 Other forms of dyspnea (principal) | CPT/HCPCS: 94762 ==

== ENCOUNTER → 2021-08-01 09:46 | Outpatient (POV) | payer MEDICAID, SELFPAY ==
[2021-08-01 09:59] VITALS: BP 110/80; PULSE 87; RESP 18; TEMP 37.1; O2SAT 95; BMI 30.4
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
== END ==
PROVIDERS: Visit Provider Nurse Anesthetist, Certified Registered
DX: M51.16 Intervertebral disc disorders with radiculopathy, lumbar region (principal); M46.1 Sacroiliitis, not elsewhere classified
CPT/HCPCS: 99212; G0463

== ENCOUNTER → 2021-10-17 07:17 | Outpatient (CLI) | payer MEDICAID, SELFPAY ==
[2021-10-16 19:25] LABS: Amphetamine/Metha Screen,Urine Negative ng/ml (<1000)
[2021-10-16 19:26] LABS: Barbiturates Screen,Urine Negative ng/ml (<200); Benzodiazepines Screen,Urine Positive ng/ml (<200)
[2021-10-16 19:27] LABS: Cannabinoid Screen,Urine Negative ng/ml (<50); Cocaine Screen,Urine Negative ng/ml (<300)
[2021-10-16 19:28] LABS: Methadone Screen,Urine Negative ng/ml (<300)
[2021-10-16 19:29] LABS: Opiate Screen,Urine Negative ng/ml (<300)
[2021-10-16 19:30] LABS: Phencyclidine Screen,Urine Negative ng/ml (<25)
== END ==
PROVIDERS: PCP Emergency Medicine; Visit Provider Emergency Medicine
DX: Z79.899 Other long term (current) drug therapy (principal)
CPT/HCPCS: 80305

== ENCOUNTER 2021-11-14 10:24 | Inpatient (IN) | payer MEDICAID, SELFPAY ==
[2021-11-14] VITALS (11 sets, daily range): BP systolic 99–136; BP diastolic 56–91; PULSE 96–151; RESP 19–44; TEMP 36.1–38; O2SAT 94–98; BMI 31.4; BMI 33.4; BMI 25.9
--- NOTE | 2021-11-14 10:29 | ECG_ITS ---
APPROVED REPORT Exam: Resting ECG HR:154 bpm ECG Measurements Heart Rate 154 AXES NH 124 P 89 QRSd 85 QRS 194 QT 288 T 72 QTc 375 Conclusion SINUS TACHYCARDIA Biatrial abnormality with RAD POSSIBLE RIGHT VENTRICULAR HYPERTROPHY [SOME/ALL OF: PROMINENT R IN V1, LATE TRANSITION, RAD, SUNNY, SSS] CRITICAL TEST RESULT UNCONFIRMED REPORT Electronically signed by : Chandler Pacheco MD 11/14/2021 14:13:00
--- NOTE | 2021-11-14 10:31 | HMH.EDSOB ---
ED Disposition Clinical Impression: CAP (community acquired pneumonia) Qualifiers: Laterality: right Lung location: middle lobe of lung Qualified Code(s): J18.9 - Pneumonia, unspecified organism COPD (chronic obstructive pulmonary disease) Qualifiers: COPD type: COPD with acute exacerbation Qualified Code(s): J44.1 - Chronic obstructive pulmonary disease with (acute) exacerbation Respiratory failure Qualifiers: Chronicity: acute Respiratory failure complication: hypercapnia Qualified Code(s): J96.02 - Acute respiratory failure with hypercapnia Clinical Impression: (Ruled Out): Acute and chronic respiratory failure following trauma and surgery Disposition: Admitted As Inpatient Condition on Discharge: Good - Critical Care Critical Care Time: Yes Attestation: On , the high probability of a clinically significant, sudden or life threatening deterioration of the following system(s) required my full and direct attention, intervention and personal management. The time I documented below is in addition to time spent performing reported procedures but includes the following listed in this critical care notation. Vital system(s) involved:: Respiratory Failure My critical care processes included: Assessment & monitoring of V/S, Initial and Re-exams, Data Review/Interpretation, Coordinating Care, Medication Orders and management, Documentation Medical Decision Making - Medical Records Medical records reviewed: Yes: I reviewed the patient's medical records. - Antwan Inquiry Pt receiving controlled substance: No Vital Signs: 11/14/21 10:23 11/14/21 11:57 Temperature 100.4 F H Temperature Source Oral Pulse Rate 128 H Pulse Rate [Left Radial] 151 H Respiratory Rate 33 H Blood Pressure [Right Arm] 136/88 Blood Pressure Mean [Right Arm] 104 Blood Pressure Source [Right Arm] Automatic Cuff Blood Pressure Position [Right Arm] Sitting 02 Sat by Pulse Oximetry 94 L Oxygen Delivery Method Nasal Cannula Oxygen Flow Rate (LPM) 3 - Lab Data Lab Results 11/14/21 10:25: WBC 18.6 H, RBC 5.09, Hgb 15.1, Hct 45.6, MCV 89.7, MCH 29.6, MCHC 33.0, RDW 12.6, Plt Count 262, MPV 7.7, Neut % (Auto) 86.8 H, Lymph % (Auto) 5.7 L, Dewitt % (Auto) 5.6, Eos % (Auto) 0.6, Baso % (Auto) 1.2, Neut # (Auto) 16.2 H, Lymph # (Auto) 1.1, Dewitt # (Auto) 1.1 H, Eos # (Auto) 0.1, Baso # (Auto) 0.2, Total Counted 100, Neutrophils % (Manual) 77 H, Band Neutrophils % 3.0, Lymphocytes % (Manual) 8 L, Monocytes % (Manual) 12 H, Platelet Estimate Normal, RBC Morphology Normal 11/14/21 10:25: Sodium 133 L, Potassium 4.8, Chloride 94 L, Carbon Dioxide 36 H, Anion Gap 7.8, BUN 11, Creatinine 0.80, Estimated Creat Clear 149, Estimated GFR 101, Est GFR ( Amer) 122, Glucose 127 H, Calcium 9.4, Total Bilirubin 1.1, AST 22, ALT 15, Alkaline Phosphatase 103, Troponin I < 0.01, Total Protein 7.7, Albumin 4.0, Globulin 3.7 H, Albumin/Globulin Ratio 1.1 11/14/21 10:25: Procalcitonin 0.145 11/14/21 10:30: SARS-CoV-2 (PCR) Not detected, Influenza A Untype (PCR) Not detected, Influenza Type B (PCR) Not detected 11/14/21 10:53: Specimen Source Left brachial, O2 % 3 lpm nc, ABG pH 7.28 L, ABG pCO2 75.4 H, ABG pO2 67.4 L, ABG HCO3 34.8 H, ABG Total CO2 37.1 H, ABG O2 Saturation 92, ABG Base Excess 8.1 H, Gerard Test Patient unable 11/14/21 11:35: Lactate 0.9 Result diagrams: 11/14/21 10:25 11/14/21 10:25 Orders (Tests/Meds): ED MEDICATIONS Generic Name Dose Route Start Last Admin Trade Name Freq PRN Reason Stop Dose Admin Ceftriaxone Sodium 1 gm/ 50 mls @ 100 mls/hr 11/14/21 11:30 Sodium Chloride IV 11/28/21 11:29 Q24H HAYDEE Azithromycin 500 mg/ Sodium 250 mls @ 250 mls/hr 11/14/21 11:30 Chloride IV 11/28/21 11:29 Q24H HAYDEE Sodium Chloride 10 ml 11/14/21 10:36 Sodium Chloride 0.9% 10ml Vial IV 12/14/21 10:35 NEEDED PRN to Dilute Lorazepam inj Discontinued Medications Generic Name Dose Route Start Last Admin
--- NOTE | 2021-11-14 10:33 | PC.NURSE ---
ED MD AT BEDSIDE FOR EVALUATION
--- NOTE | 2021-11-14 10:35 | XR_ITS ---
FINAL REPORT CLINICAL HISTORY: soa COMPARISON: 06/08/2019 FINDINGS: A single PA view of the chest was obtained. The cardiac and mediastinal silhouettes are within normal limits. There is emphysema. There are new bibasilar opacities, left greater than right concerning for pneumonia. There may be small left pleural effusion. There is no pneumothorax. No acute osseous abnormality is identified. IMPRESSION: New bibasilar opacities concerning for pneumonia with a possible small left effusion. Reviewed, Interpreted and Dictated by Zhanna May MD Transcribed by Mila Chadwick Authenticated and [facility]
--- NOTE | 2021-11-14 10:39 | PC.NURSE ---
RT called and made aware of ABG order
[2021-11-14 10:41] LABS: Coronavirus 19, PCR Not Detected (NotDetected); Influenza A, PCR Not Detected (NotDetected); Influenza B, PCR Not Detected (NotDetected)
--- NOTE | 2021-11-14 10:44 | ECG_ITS ---
APPROVED REPORT Exam: Resting ECG HR:145 bpm ECG Measurements Heart Rate 145 AXES KS 145 P 89 QRSd 86 QRS 128 QT 278 T 81 QTc 361 Conclusion SINUS TACHYCARDIA, biatrial enlargment and RAD POSSIBLE RIGHT VENTRICULAR HYPERTROPHY [SOME/ALL OF: PROMINENT R IN V1, LATE TRANSITION, RAD, SUNNY, SSS] ABNORMAL ECG UNCONFIRMED REPORT Electronically signed by : Chandler Pcaheco MD 11/14/2021 14:12:28
[2021-11-14 10:46] LABS: Basophils # 0.2 K/mm3 (0-0.2); Basophils % 1.2 % (0.1-2.0); Eosinophils # 0.1 K/mm3 (0.0-0.4); Eosinophils % 0.6 % (0.1-12.0); Hematocrit 45.6 % (42.0-52.0); Hemoglobin 15.1 g/dL (14.1-18.0); Lymphocytes # 1.1 K/mm3 (0.7-4.5); Lymphocytes % 5.7 % (10-50); Mean Corpuscular Hemoglobin 29.6 pg (27.0-31.2); Mean Corpuscular Volume 89.7 fl (80-94); Mean Platelet Volume 7.7 fl (7.4-10.4); Monocytes # 1.1 K/mm3 (0.1-1.0); Monocytes % 5.6 % (1.7-9.3); Neutrophils # 16.2 K/mm3 (1.8-7.8); Neutrophils % 86.8 % (37.0-80.0); Platelet Count 262 K/mm3 (142-424); Red Blood Count 5.09 M/mm3 (4.60-6.20); Red Cell Distribution Width 12.6 % (11.5-17.5); White Blood Count 18.6 K/mm3 (4.8-10.8)
[2021-11-14 10:47] LABS: MANUAL DIFFERENTIAL MANUAL DIFFERENTIAL (MANUAL DIFF)
[2021-11-14 10:50] LABS: Alanine Aminotransferase 15 U/L (12-78); Albumin/Globulin Ratio 1.1 (1.1-1.8); Alkaline Phosphatase 103 U/L (38-126); Anion Gap 7.8 mEq/L (5-15); Aspartate Amino Transferase 22 U/L (17-59); Bilirubin,Total 1.1 mg/dl (0.2-1.3); Blood Urea Nitrogen 11 mg/dl (9-20); Calcium 9.4 mg/dl (8.4-10.2); Carbon Dioxide 36 mmol/L (22.0-30.0); Chloride 94 mmol/L (98-107); Creatinine Clearance Estimated 149 mL/min (50-200); Estimated Glomerular Filt Rate 101 ml/min (>60); GFR (African American) 122 ML/MIN (>60); Globulin 3.7 g/dL (1.3-3.2); Glucose 127 mg/dl (74-100); Potassium 4.8 mmoL/L (3.5-5.1); Sodium 133 mmol/L (136-145); Total Protein,Serum 7.7 g/dl (6.3-8.2)
[2021-11-14 10:54] LABS: Lymphocytes % 8 % (10-50); Monocytes % 12 % (2-9); Neutrophils % 77 % (42-76); Total Cells Counted 100
[2021-11-14 10:55] LABS: Platelet Estimate Normal; RBC Morphology Normal
--- NOTE | 2021-11-14 11:00 | PC.NURSE ---
RT at with BIPAP machine; July, RN at assisting
[2021-11-14 11:02] LABS: Troponin I < 0.01 ng/ml (0.00-0.034)
--- NOTE | 2021-11-14 11:11 | PC.NURSE ---
contacted lab to collect blood cultures and lactic as ordered
[2021-11-14 11:16] LABS: ABG Base Excess 8.1 mmol/L (-2.4-2.3); ABG HCO3 34.8 mmhg (22.0-26.0); ABG Oxygen Saturation 92 % (90-100); ABG PH 7.28 mmol/L (7.35-7.45); ABG PO2 67.4 mmhg (80-100); ABG TCO2 37.1 mmhg (23-27)
[2021-11-14 11:17] LABS: Oxygen 3 LPM NC %
[2021-11-14 11:18] LABS: ABG PCO2 75.4 mmhg (35.0-45.0); Allen's Test Patient Unable; Source Left Brachial
[2021-11-14 11:21] LABS: Procalcitonin 0.145 ng/mL (0.0-2.0)
--- NOTE | 2021-11-14 11:32 | PC.NURSE ---
Called Dr. Osorio office and left a message with Becca to have him call ER back; just awaiting call back at this time
--- NOTE | 2021-11-14 11:33 | PC.NURSE ---
Apurva with lab at to draw blood cultures and lactic
--- NOTE | 2021-11-14 11:59 | PC.NURSE ---
PT RESTING ON LEFT SIDE, HOB ELEVATED. TOLERATING BI-PAP. DENIES NEEDS AT THIS TIME
--- NOTE | 2021-11-14 12:07 | PC.NURSE ---
Dr. Kay is speaking with ER MD at this time regarding patient
[2021-11-14 12:09] LABS: Lactic Acid 0.9 mmol/L (0.7-2.1)
--- NOTE | 2021-11-14 12:10 | PC.NURSE ---
FAMILY CALLED TO CHECK ON PT AT THIS TIME. UPDATED. PT NOTIFIED
--- NOTE | 2021-11-14 12:11 | PC.NURSE ---
Spoke with Tiffanie Caldwell, in care management regarding patient admission. She reports she will get patient a bed as soon as possible
--- NOTE | 2021-11-14 13:23 | PC.NURSE ---
PLaced new 20 G IV in left hand after other IV was pulled out by pt
--- NOTE | 2021-11-14 13:35 | HMH.PHAVTE ---
[facility] Pharmacy VTE Monitoring - Patient Demographics Admission date: 11/14/21 Report Date: 11/14/21 Time: 13:35 Allergies/Adverse Reactions: Patient Allergies aspirin [ASPIRIN] Allergy (Mild, Verified 10/16/21 13:07) codeine [CODEINE] Allergy (Mild, Verified 10/16/21 13:07) ibuprofen [IBUPROFEN] Allergy (Unknown, Verified 10/16/21 13:07) acetaminophen [From Tylenol] Allergy (Verified 10/16/21 13:07) Height: 1.73 m Weight: 99.79 kg Patient Problems: Current Active Problems CAP (community acquired pneumonia) (Acute) Respiratory failure (Acute) COPD (chronic obstructive pulmonary disease) (Chronic) - VTE Risk Labs: VTE Related Lab Results Hgb 15.1 g/dL (14.1-18.0) 11/14/21 10:25 Hct 45.6 % (42.0-52.0) 11/14/21 10:25 Plt Count 262 K/mm3 (142-424) 11/14/21 10:25 BUN 11 mg/dl (9-20) 11/14/21 10:25 Creatinine 0.80 mg/dl (0.66-1.25) 11/14/21 10:25 Estimated Creat Clear 149 mL/min (50-200) 11/14/21 10:25 Clinical Trial Participant: No - Prophylaxis VTE Prophylaxis Ordered?: Yes Types of VTE Prophylaxis: TEDS Knee High
--- NOTE | 2021-11-14 13:38 | PC.NURSE ---
pt left ED via stretcher with SRNA and RN from 2nd floor. All belongings with patient
--- NOTE | 2021-11-14 13:43 | PC.NURSE ---
PT arrived to the floor at this time
--- NOTE | 2021-11-14 13:52 | PC.NURSE ---
informed Lisset TURNER that azithromycin was sent up with pt and was not given yet due to this IV being pulled out and a new one started and the rocephin was finishing up. Nurse states she will start it
[2021-11-14 14:25] LABS: ABG Base Excess 6.2 mmol/L (-2.4-2.3); ABG HCO3 32.3 mmhg (22.0-26.0); ABG Oxygen Saturation 97 % (90-100); ABG PH 7.32 mmol/L (7.35-7.45); ABG PO2 89.9 mmhg (80-100); ABG TCO2 34.3 mmhg (23-27)
[2021-11-14 14:28] LABS: Allen's Test ACCEPTABLE; Oxygen 45 %; Source RADIAL; Tidal Volume BIPAP 18/6
[2021-11-14 14:30] LABS: ABG PCO2 64.5 mmhg (35.0-45.0)
--- NOTE | 2021-11-14 14:44 | PC.NURSE ---
RT called to report a critical ABG, name and date of verified. results reported to Kendall Alas APRN.
--- NOTE | 2021-11-14 15:14 | PC.NURSE ---
nitropaste held due to pt not having chest pain per Angel Szymanski RN
--- NOTE | 2021-11-14 17:39 | PC.NURSE ---
pt remains on Bipap, O2 sats in mid 90s. has a sluggish response when following commands. call light is in reach, bed is in lowest position, wheels locks, bed alarm on and functioning.
--- NOTE | 2021-11-14 18:42 | PC.NURSE ---
Pt is wet with sweat that has saturated his clothes and sheets. He allowed us to do a bed change but he is refusing to allow us to put on a clean gown.
--- NOTE | 2021-11-14 19:00 | HMH.HP ---
*Admission Date: 11/14/21 *Chief complaint: acute respiratory failure with hypercapnia *History of present illness: Is a 56-year-old white male, patient in our practice, presented to the emergency room earlier with worsening shortness of breath. Arrived via EMS. He was given albuterol prior to arrival. His work-up in the emergency room included arterial blood gas which showed hypercapnia and hypoxia. He was placed on BiPAP. Chest x-ray shows bibasilar infiltrates, worse on the left, very small effusion at the left base. He is admitted for further evaluation and treatment [facility] History I have reviewed the patient's past medical history: Yes Medical History: Reports:: Chronic Obstructive Pulmonary Disease (COPD) Denies:: Cancer, Diabetes Mellitus Type 1, Diabetes Mellitus Type 2, Home Oxygen, MRSA *Have you ever received a pneumonia vaccine?: No *Have you received a flu vaccine this season?: Yes Laterality Cases: Left: ACL Repair, Bilateral: Other Other Surgeries: Yes: Colonoscopy Amputation: No Fractures: No - *Social History Smoking Status: Current every day smoker Tobacco Type: cigarettes # Packs/Day (cigarettes): 2 Alcohol Intake: never Alcohol Intake Frequency:: other Substance Use Type: denies use *Occupational Status:: disabled Housing: house Household Members: friend(s) *Travel in the last 8 weeks: None Family Hx:: Cancer, Coronary Artery Disease, Diabetes Review of Systems - Constitutional Reports fatigue - Eyes Denies change in vision - ENT Denies abnormal hearing - *Cardiovascular Reports shortness of breath - *Respiratory Reports chest congestion, Reports cough, Reports shortness of breath, Reports shortness of breath with activity - *Gastrointestinal Denies abdominal pain - *Genitourinary Denies difficulty urinating - *Musculoskeletal Reports muscle weakness - Integumentary/Breasts Denies yellowing of the skin - *Neurologic Denies behavioral changes - Psychiatric Denies behavioral changes - Endocrine Denies rapid, pounding, or irregular heartbeat - Hematologic/Lymphatic Denies easy bleeding - Allergic/Immunologic Denies hives Meds Home Medications Medication Instructions Recorded Confirmed Type Albuterol Sulfate [Albuterol 2 puff IH Q4HP PRN 08/01/21 11/14/21 History Sulfate Hfa] Tramadol HCl [Tramadol 50mg 50 mg PO BIDP PRN 08/01/21 11/14/21 History Tab] ipratropium 0.5 mg-albuterol 3 mg 3 ml INHALATION QID PRN 90 Days 11/03/21 11/14/21 Rx (2.5 mg base)/3 mL nebulization #270 ml soln ALPRAZolam [Alprazolam 0.25mg 0.25 mg PO TIDP PRN 11/14/21 11/14/21 History Tab] Ergocalciferol (Vitamin D2) 50,000 units PO WEEKLY 11/14/21 11/14/21 History [Drisdol] Fluticasone/Umeclidin/Vilanter 1 inh IH DAILY 11/14/21 11/14/21 History [Trelegy Ellipta] Oxycodone HCl 5 mg PO TID 11/14/21 11/14/21 History Allergies Allergy/AdvReac Type Severity Reaction Status Date / Time aspirin [ASPIRIN] Allergy Mild Verified 10/16/21 13:07 codeine [CODEINE] Allergy Mild Verified 10/16/21 13:07 ibuprofen [IBUPROFEN] Allergy Unknown Verified 10/16/21 13:07 acetaminophen [From Tylenol] Allergy Verified 10/16/21 13:07 Exam Vital signs and Labs for Last 24 Hours: Temp Pulse Resp BP Pulse Ox 97.7 F 96 H 22 128/78 97 11/14/21 16:00 11/14/21 16:00 11/14/21 16:00 11/14/21 16:00 11/14/21 16:00 Laboratory Results - last 24 hr 11/14/21 10:25: WBC 18.6 H, RBC 5.09, Hgb 15.1, Hct 45.6, MCV 89.7, MCH 29.6, MCHC 33.0, RDW 12.6, Plt Count 262, MPV 7.7, Neut % (Auto) 86.8 H, Lymph % (Auto) 5.7 L, Guthrie % (Auto) 5.6, Eos % (Auto) 0.6, Baso % (Auto) 1.2, Neut # (Auto) 16.2 H, Lymph # (Auto) 1.1, Guthrie # (Auto) 1.1 H, Eos # (Auto) 0.1, Baso # (Auto) 0.2, Total Counted 100, Neutrophils % (Manual) 77 H, Band Neutrophils % 3.0, Lymphocytes % (Manual) 8 L, Monocytes % (Manual) 12 H, Platelet Estimate Normal, RBC Morphology Normal 11/14/21 10:25: Sarah
[2021-11-15] VITALS (7 sets, daily range): BP systolic 107–126; BP diastolic 62–78; PULSE 76–106; RESP 16–22; TEMP 35.7–36.6; O2SAT 91–94; BMI 25.9
--- NOTE | 2021-11-15 04:12 | PC.NURSE ---
pt has rested t/o shift, at beginning of shift pt unable to answer orientation questions, at 0000 check pt was able to state name, and where he was, remains on bipap with O2 sats 91-96%, pt has had no complaints of pain
[2021-11-15 07:21] LABS: Basophils # 0.1 K/mm3 (0-0.2); Basophils % 0.3 % (0.1-2.0); Eosinophils # 0.1 K/mm3 (0.0-0.4); Eosinophils % 0.4 % (0.1-12.0); Hematocrit 52.6 % (42.0-52.0); Lymphocytes # 0.8 K/mm3 (0.7-4.5); Lymphocytes % 4.3 % (10-50); Mean Corpuscular HGB Conc 32.7 g/dL (31.8-35.4); Mean Corpuscular Hemoglobin 29.6 pg (27.0-31.2); Mean Corpuscular Volume 90.7 fl (80-94); Mean Platelet Volume 8.5 fl (7.4-10.4); Monocytes # 0.6 K/mm3 (0.1-1.0); Monocytes % 3.2 % (1.7-9.3); Neutrophils # 17.8 K/mm3 (1.8-7.8); Neutrophils % 91.8 % (37.0-80.0); Platelet Count 211 K/mm3 (142-424); Red Cell Distribution Width 12.8 % (11.5-17.5); White Blood Count 19.4 K/mm3 (4.8-10.8)
[2021-11-15 07:26] LABS: MANUAL DIFFERENTIAL MANUAL DIFFERENTIAL (MANUAL DIFF)
[2021-11-15 07:27] LABS: Hemoglobin 16.9 g/dL (14.1-18.0)
[2021-11-15 07:34] LABS: Anion Gap 15.9 mEq/L (5-15); Blood Urea Nitrogen 38 mg/dl (9-20); Calcium 9.8 mg/dl (8.4-10.2); Carbon Dioxide 26 mmol/L (22.0-30.0); Chloride 101 mmol/L (98-107); Creatinine Clearance Estimated 111 mL/min (50-200); Estimated Glomerular Filt Rate 88 ml/min (>60); GFR (African American) 106 ML/MIN (>60); Glucose 147 mg/dl (74-100); Potassium 5.9 mmoL/L (3.5-5.1); Sodium 137 mmol/L (136-145)
[2021-11-15 07:58] LABS: Lymphocytes % 4 % (10-50); Monocytes % 1 % (2-9); Neutrophils % 95 % (42-76); Platelet Estimate Normal; RBC Morphology Normal; Total Cells Counted 100
--- NOTE | 2021-11-15 08:43 | HMH.ACPN2 ---
Internal Medicine - PN: Subj *Date: 11/15/21 *Time: 09:00 Interval history: 56-year-old male patient sitting up in bed resting quietly with eyes open, he reports less shortness of breath today and is feeling a little better than yesterday. Oxygenation 94% on 4 L per nasal cannula he was on BiPAP all night. Exam Vital signs and Labs for Last 24 Hours: Temp Pulse Resp BP Pulse Ox 97.7 F 90 16 107/67 L 92 L 11/15/21 08:00 11/15/21 08:00 11/15/21 08:00 11/15/21 08:00 11/15/21 08:00 Laboratory Results - last 24 hr 11/14/21 10:25: WBC 18.6 H, RBC 5.09, Hgb 15.1, Hct 45.6, MCV 89.7, MCH 29.6, MCHC 33.0, RDW 12.6, Plt Count 262, MPV 7.7, Neut % (Auto) 86.8 H, Lymph % (Auto) 5.7 L, Isabella % (Auto) 5.6, Eos % (Auto) 0.6, Baso % (Auto) 1.2, Neut # (Auto) 16.2 H, Lymph # (Auto) 1.1, Isabella # (Auto) 1.1 H, Eos # (Auto) 0.1, Baso # (Auto) 0.2, Total Counted 100, Neutrophils % (Manual) 77 H, Band Neutrophils % 3.0, Lymphocytes % (Manual) 8 L, Monocytes % (Manual) 12 H, Platelet Estimate Normal, RBC Morphology Normal 11/14/21 10:25: Sodium 133 L, Potassium 4.8, Chloride 94 L, Carbon Dioxide 36 H, Anion Gap 7.8, BUN 11, Creatinine 0.80, Estimated Creat Clear 149, Estimated GFR 101, Est GFR ( Amer) 122, Glucose 127 H, Calcium 9.4, Total Bilirubin 1.1, AST 22, ALT 15, Alkaline Phosphatase 103, Troponin I < 0.01, Total Protein 7.7, Albumin 4.0, Globulin 3.7 H, Albumin/Globulin Ratio 1.1 11/14/21 10:25: Procalcitonin 0.145 11/14/21 10:30: SARS-CoV-2 (PCR) Not detected, Influenza A Untype (PCR) Not detected, Influenza Type B (PCR) Not detected 11/14/21 10:53: Specimen Source Left brachial, O2 % 3 lpm nc, ABG pH 7.28 L, ABG pCO2 75.4 H, ABG pO2 67.4 L, ABG HCO3 34.8 H, ABG Total CO2 37.1 H, ABG O2 Saturation 92, ABG Base Excess 8.1 H, Gerard Test Patient unable 11/14/21 11:35: Lactate 0.9 11/14/21 14:16: Specimen Source Radial, O2 % 45, ABG pH 7.32 L, ABG pCO2 64.5 H, ABG pO2 89.9, ABG HCO3 32.3 H, ABG Total CO2 34.3 H, ABG O2 Saturation 97, ABG Base Excess 6.2 H, Gerard Test Acceptable, Tidal Volume Bipap 18/11/15/21 06:44: WBC 19.4 H, RBC 5.80, Hgb 16.9 D, Hct 52.6 H, MCV 90.7, MCH 29.6, MCHC 32.7, RDW 12.8, Plt Count 211, MPV 8.5, Neut % (Auto) 91.8 H, Lymph % (Auto) 4.3 L, Isabella % (Auto) 3.2, Eos % (Auto) 0.4, Baso % (Auto) 0.3, Neut # (Auto) 17.8 H, Lymph # (Auto) 0.8, Isabella # (Auto) 0.6, Eos # (Auto) 0.1, Baso # (Auto) 0.1, Total Counted 100, Neutrophils % (Manual) 95 H, Lymphocytes % (Manual) 4 L, Monocytes % (Manual) 1 L, Platelet Estimate Normal, RBC Morphology Normal 11/15/21 06:44: Sodium 137, Potassium 5.9 H D, Chloride 101, Carbon Dioxide 26, Anion Gap 15.9 H, BUN 38 H D, Creatinine 0.90, Estimated Creat Clear 111, Estimated GFR 88, Est GFR ( Amer) 106, Glucose 147 H, Calcium 9.8 I & O for Last 24 hours: Intake & Output 11/12/21 11/13/21 11/14/21 11/15/21 23:59 23:59 23:59 23:59 Output Total 0 / 0 400 / 400 Balance 0 / 0 -400 / -400 Weight 186 lb 8.177 oz 185 lb 1.6 oz - Constitutional no acute distress - *Routine HEENT Exam Head: Present: normocephalic Eye: Present: EOMI ENT: Present: mucous membranes moist - *Routine Neck Exam Present: trachea midline. Absent: tracheal deviation - *Routine Respiratory Exam Present: decreased breath sounds, wheezes - *Routine Cardiovascular Exam Present: RRR - *Routine Abdominal Exam Present: soft, normoactive bowel sounds. Absent: tenderness, firm - *Routine Extremities Exam Present: full ROM, pulses intact. Absent: cyanosis, clubbing, edema - *Routine Skin Exam Present: intact, dry. Absent: cyanosis, erythema - *Routine Neurological Exam Present: alert, oriented X3. Absent: motor deficit - Routine Psychiatric Exam Present: normal affect, normal thought process. Absent: visual hallucinations Assessment and Plan (1) CAP (community acquired pneumonia) Status: Acute Qualifiers: Laterality: right Lung location: middle lobe of lung Qualified Co
--- NOTE | 2021-11-15 08:53 | CA_ITS ---
APPROVED REPORT EXAM: Comprehensive 2D, Doppler, and color-flow Echocardiogram Contact Officer: Rain Frederick, RT(R) Ht: 5 ft 11 in Wt: 185lbs BSA: 2.04 BP: 107/67 mmHg Indications: Respiratory failure, COPD, smoker, SOB, [place], CAD, o2 dependent, weaned off BIPAP M-Mode Dimensions RVDd 2.97 cm (0.9-2.6) LVDd 3.39 cm (3.5-5.7) LVDs 2.88 cm (3.5-5.7) IVSd 0.80 cm (0.6-1.1) PWd 0.89 cm (0.6-1.1) EF (Teich) 32.70% FS 15.00% EDV (Teich) 47.10 mL TAPSE 1.94 (<1.7) ESV (Teich) 31.70 mL LV Diastology E Decel Time 117.00 (160-240 msec) E/A Ratio 1.3 MED E' 7.00 (< 7 cm/sec) E'/MED E' Ratio 13.71 (>14) LAT E' 9.10 (<10 cm/sec) E/LAT E' Ratio 10.55 (>14) Mitral Valve MV E Max Guido. 96.00 (40-130 cm/s) MV A Velocity 75.00 (40-130 cm/s) E/A Ratio 1.29 MV Decel. Time 117.00 (160-240 ms) MV PHT 34.00 ms Left Ventricle Left atrium is mildly enlarged, left ventricle is normal size mild concentric left ventricular hypertrophy, estimated ejection fraction 55% with no regional wall motion abnormality, diastolic parameters are inconclusive. Right Ventricle Right atrium and right ventricle are mildly enlarged with normal contractility. Aortic Valve Aortic valve is grossly normal there is no aortic stenosis or aortic insufficiency. Mitral Valve Mitral valve grossly normal, there is trace mitral regurgitation. Tricuspid Valve Tricuspid valve is grossly normal, there is trace tricuspid regurgitation, tricuspid regurgitation jet velocity is inadequate for calculation of the right ventricular systolic pressure. Pulmonic Valve Pulmonic valve is poorly visualized. Great Vessels Aortic root is normal size. Inferior vena cava is poorly visualized. Pericardium No significant pericardial effusion noted. Conclusion 1. Biatrial enlargement, normal left ventricular size mild concentric left ventricular hypertrophy, estimated ejection fraction 55% with no regional wall motion abnormality, diastolic parameters are inconclusive. 2. Mildly enlarged right ventricle with normal contractility. 3. Trace mitral and tricuspid regurgitation. 4. No significant pericardial effusion noted. 5. Inferior vena cava is poorly visualized. Electronically signed by : Eduardo Silverman MD 11/15/2021 19:11:56
--- NOTE | 2021-11-15 10:00 | HMH.OTEV ---
OT Inpatient Evaluation Rehab OT IP Evaluation Start: 11/15/21 08:53 Freq: ONCE Status: Complete Protocol: Document 11/15/21 09:50 TJ (Rec: 11/15/21 10:00 TJ [id number]) Rehab OT IP Assessment Subjective History Is a 56-year-old white male, patient in our practice, presented to the emergency room earlier with worsening shortness of breath. Arrived via EMS. He was given albuterol prior to arrival. His work-up in the emergency room included arterial blood gas which showed hypercapnia and hypoxia. He was placed on BiPAP. Chest x-ray shows bibasilar infiltrates, worse on the left, very small effusion at the left base. He is admitted for further evaluation and treatment [facility] History I have reviewed the patient's past medical history: Yes Medical History: Reports:: Chronic Obstructive Pulmonary Disease (COPD) Subjective I can get up. Patient lives with dtr and son -in-law in trailer with ramp to enter. Patient ambulates independently within home, however does use a power wheelchair for outside appointments. No hx of falling . Patient reported being independent for all ADLs and fx'l mobility tasks prior to hospitalization. Patient reported being on 2L of 02 at home. Objective Patient Orientation Person,Place,Name,Birthday, Year Upper Extremity Gross ROM WFL Bed Mobility bed mobility - supine/sit Assist Level Independent Transfer Training Sit/Stand/Pivot Transfer Assist Level Independent Chair Transfer Ability Independent Chair Transfer Technique Sit to/from Ambulatory Chair Transfer Assistive Devices None Rehab OT IP prob,goals,plan Problems Date of Evaluation: 11/15/21 Stacy[facility] Comfort
--- NOTE | 2021-11-15 10:09 | HMH.PULMCON ---
*Admission Date: 11/14/21 *Reason for consult:: #COPD exacerbation *History of present illness: Mr. Lima is a 56-year-old male current smoker greater than [id number] smoking history carries a diagnosis requiring triple inhaler therapy presents worsening respiratory swelling with cough and productive phlegm for the last 3 to 4 days abnormal presentation ED patient found to be in severe respiratory distress needing noninvasive and initiated BiPAP and pulmonary was called for further management [facility] History Medical History: Reports:: Chronic Obstructive Pulmonary Disease (COPD) Denies:: Cancer, Diabetes Mellitus Type 1, Diabetes Mellitus Type 2, Home Oxygen, MRSA *Have you ever received a pneumonia vaccine?: No *Have you received a flu vaccine this season?: Yes Laterality Cases: Left: ACL Repair, Bilateral: Other Other Surgeries: Yes: Colonoscopy Amputation: No Fractures: No - *Social History Smoking Status: Current every day smoker Tobacco Type: cigarettes # Packs/Day (cigarettes): 2 Alcohol Intake: never Alcohol Intake Frequency:: other Substance Use Type: denies use *Occupational Status:: disabled Housing: house Household Members: friend(s) *Travel in the last 8 weeks: None Family Hx:: Cancer, Coronary Artery Disease, Diabetes ROS - Cons Reports fatigue - Eyes Reports blurry vision - ENT Denies difficulty swallowing - Card Reports shortness of breath - Resp Respiratory: Reports chest congestion, Reports cough, Reports excessive phlegm production, Reports wheezing - GI Gastrointestingal: Denies: abdominal pain - Musk Musculoskeletal: Reports back pain, Reports muscle weakness - Psych Denies thoughts of hurting/killing others, Denies thoughts of hurting/killing yourself Meds Home Medications Medication Instructions Recorded Confirmed Type Albuterol Sulfate [Albuterol 2 puff IH Q4HP PRN 08/01/21 11/14/21 History Sulfate Hfa] ipratropium 0.5 mg-albuterol 3 mg 3 ml INHALATION QID PRN 90 Days 11/03/21 11/14/21 Rx (2.5 mg base)/3 mL nebulization #270 ml soln ALPRAZolam [Alprazolam 0.25mg 0.25 mg PO TIDP PRN 11/14/21 11/14/21 History Tab] Ergocalciferol (Vitamin D2) 50,000 units PO WEEKLY 11/14/21 11/14/21 History [Drisdol] Fluticasone/Umeclidin/Vilanter 1 inh IH DAILY 11/14/21 11/14/21 History [Trelegy Ellipta] Oxycodone HCl 5 mg PO TID 11/14/21 11/14/21 History Allergies Allergy/AdvReac Type Severity Reaction Status Date / Time aspirin [ASPIRIN] Allergy Mild Verified 10/16/21 13:07 codeine [CODEINE] Allergy Mild Verified 10/16/21 13:07 ibuprofen [IBUPROFEN] Allergy Unknown Verified 10/16/21 13:07 acetaminophen [From Tylenol] Allergy Verified 10/16/21 13:07 tramadol Allergy Verified 11/15/21 08:28 Exam - Constitutional Constitutional:: Present: no acute distress, comfortable - HENMT Exam HENMT: Present: normocephalic - Eye Exam Eyes:: Present: normal appearance both eyes and related structures - Neck Exam Neck:: Present: normal visual inspection - Respiratory Exam Respiratory:: Present: able to speak in complete sentences, respiratory distress, wheezing - Cardiovascular Exam Cardiac:: Present: S1, S2 - GI Exam GI:: Present: soft - Skin Exam Skin: Present: warm, no rash - Neurological Exam Neurological: Present: alert, awake - Extremities Exam Extremities: Present: no cyanosis, no clubbing, no edema Internal Medicine - CN: Reslt - Labs CBC & Chem 7: 11/15/21 06:44 11/15/21 06:44 Labs: Short CBC 11/14/21 11/15/21 Range/Units 10:25 06:44 WBC 18.6 H 19.4 H (4.8-10.8) K/mm3 Hgb 15.1 16.9 D (14.1-18.0) g/dL Hct 45.6 52.6 H (42.0-52.0) % Plt Count 262 211 (142-424) K/mm3 BMP 11/14/21 11/15/21 10:25 06:44 Sodium 133 L 137 Potassium 4.8 5.9 H D Chloride 94 L 101 Carbon Dioxide 36 H 26 BUN 11 38 H D Creatinine 0.80 0.90 Glucose 127 H 147 H Calcium 9.4 9.8 Cardiac Enzymes
--- NOTE | 2021-11-15 11:06 | PC.NURSE ---
Rounded on this pt, nurse in room starting iv. Pt sitting on side of bed, no needs voiced.
--- NOTE | 2021-11-15 11:16 | HMH.PTEV ---
Physical Therapy Evaluation Rehab PT IP Evaluation Start: 11/15/21 08:52 Freq: ONCE Status: Active Protocol: Document 11/15/21 11:13 TERRY (Rec: 11/15/21 11:16 PHOSID [id number]) Subjective/History History History Pt is 56 yowm adm to [facility] with COPD exac, acute resp failure, and CAP. He reports he is indeoendent with mobility using a motorized chair for long distances, lives alone with ramp to enter the home and uses O2 at all time via NC . Subjective Subjective He reports, feeling shaky this morning, but no other c/o. Rehab PT IP Eval Objective Appearance Patient Behavior Appropriate Patient Orientation Person,Place,Time Difficulty following instructions none Speech Pattern Clear Ambulation Patient Able to Ambulate Yes Ambulation Observation IP General Gait Pattern Observation No Deviations/Normal Ambulation Distance (feet) 20 Ambulation Assistive Device None Ambulation Ability Independent Balance Ability to Arise Able, uses arms to help Sitting Balance Steady, safe Standing Balance Steady, wide stance Dynamic Sitting Balance Ability Good Dynamic Standing Balance Ability Good Transfers Bed Transfer Ability Independent Chair Transfer Ability Independent Sit to Stand Bed Transfer Ability Independent Sit to Stand Chair Transfer Ability Independent Rehab PT IP prob,goals,plan Problems Date of Evaluation: 11/15/21 Discharge Plan PT Discharge Plan Pt appears to be currently at baseline for all mobility and is appropriate to return home once medically stable. G -code Required No Eval Complexity Eval Charge Codes 47013 - Moderate Complexity PHYSICIAN CERTIFICATION: I certify the specified therapy services for Ancelmo Lima are required, authorized, and reviewed every 30 days.
--- NOTE | 2021-11-15 12:09 | PC.NURSE ---
rounded on patient no concerns or questions at this time. iv pump beeping to signal antibiotic finished so patient flushed and saline locked. assisted patient with fan, and turning lights down so he could rest. encouraged him to ring out with any concerns or needs.
--- NOTE | 2021-11-15 13:24 | HMH.CNCARD ---
History of Present Illness Consult date: 11/15/21 Requesting physician: Roberto Kay Consult reason: shortness of breath Chief complaint: SOA, Tachycardia, possible PE, possible CHF Additional Medical History:: 1. COPD with home oxygen use A. Tobacco use, [id number] history 2. Family history of heart disease in older brother 3. History of nephrolithiasis with hematuria 4. History of heavy alcohol use discontinued 2018 (previously drank 2 pints per day) 5. History of anxiety 6. Chronic back pain History of present illness: Is a 56-year-old white male, patient in our practice, presented to the emergency room earlier with worsening shortness of breath. Arrived via EMS. He was given albuterol prior to arrival. His work-up in the emergency room included arterial blood gas which showed hypercapnia and hypoxia. He was placed on BiPAP. Chest x-ray shows bibasilar infiltrates, worse on the left, very small effusion at the left base. He is admitted for further evaluation and treatment (The above per Dr. Kay) Cardiology consulted for possibility of CHF in addition to pneumonia. Preliminary echocardiogram today shows preserved ejection fraction with no significant valve disease. Right heart enlargement noted likely related to pulmonary issues but cannot rule out pulmonary embolus. EKG shows sinus tachycardia at a rate of 140 -150 bpm with right axis deviation and possible RV enlargement. Compared to tracing from 2020, no significant difference. [facility] History Medical History: Reports:: Chronic Obstructive Pulmonary Disease (COPD) Denies:: Cancer, Diabetes Mellitus Type 1, Diabetes Mellitus Type 2, Home Oxygen, MRSA *Have you ever received a pneumonia vaccine?: No *Have you received a flu vaccine this season?: Yes Laterality Cases: Left: ACL Repair, Bilateral: Other Other Surgeries: Yes: Colonoscopy Amputation: No Fractures: No - *Social History Smoking Status: Current every day smoker Tobacco Type: cigarettes # Packs/Day (cigarettes): 2 Alcohol Intake: never Alcohol Intake Frequency:: other Substance Use Type: denies use *Occupational Status:: disabled Housing: house Household Members: friend(s) *Travel in the last 8 weeks: None Family Hx:: Cancer, Coronary Artery Disease, Diabetes Meds Home Medications Medication Instructions Recorded Confirmed Type Albuterol Sulfate [Albuterol 2 puff IH Q4HP PRN 08/01/21 11/14/21 History Sulfate Hfa] ipratropium 0.5 mg-albuterol 3 mg 3 ml INHALATION QID PRN 90 Days 11/03/21 11/14/21 Rx (2.5 mg base)/3 mL nebulization #270 ml soln ALPRAZolam [Alprazolam 0.25mg 0.25 mg PO TIDP PRN 11/14/21 11/14/21 History Tab] Ergocalciferol (Vitamin D2) 50,000 units PO WEEKLY 11/14/21 11/14/21 History [Drisdol] Fluticasone/Umeclidin/Vilanter 1 inh IH DAILY 11/14/21 11/14/21 History [Trelegy Ellipta] Oxycodone HCl 5 mg PO TID 11/14/21 11/14/21 History Allergies Allergy/AdvReac Type Severity Reaction Status Date / Time aspirin [ASPIRIN] Allergy Mild Verified 10/16/21 13:07 codeine [CODEINE] Allergy Mild Verified 10/16/21 13:07 ibuprofen [IBUPROFEN] Allergy Unknown Verified 10/16/21 13:07 acetaminophen [From Tylenol] Allergy Verified 10/16/21 13:07 tramadol Allergy Verified 11/15/21 08:28 Exam Vital signs and Labs for Last 24 Hours: Temp Pulse Resp BP Pulse Ox 97.9 F 103 H 16 110/62 93 L 11/15/21 12:00 11/15/21 12:00 11/15/21 12:00 11/15/21 12:00 11/15/21 12:00 Laboratory Results - last 24 hr 11/14/21 14:16: Specimen Source Radial, O2 % 45, ABG pH 7.32 L, ABG pCO2 64.5 H, ABG pO2 89.9, ABG HCO3 32.3 H, ABG Total CO2 34.3 H, ABG O2 Saturation 97, ABG Base Excess 6.2 H, Gerard Test Acceptable, Tidal Volume Bipap 18/11/15/21 06:44: WBC 19.4 H, RBC 5.80, Hgb 16.9 D, Hct 52.6 H, MCV 90.7, MCH 29.6, MCHC 32.7, RDW 12.8, Plt Count 211, MPV 8.5, Neut % (Auto) 91.8 H, Lymph % (Auto) 4.3 L, [place] % (Auto) 3.2, Eos % (Auto) 0.4, Baso % (Auto) 0.3, Neut
--- NOTE | 2021-11-15 13:34 | CT_ITS ---
PROCEDURE INFORMATION: Exam: CTA Chest With Contrast Exam date and time: 11/15/2021 3:10 PM Age: 56 years old Clinical indication: Shortness of breath; Additional info: SOA, ? pe TECHNIQUE: Imaging protocol: Computed tomographic angiography of the chest with contrast. 3D rendering (Not supervised by radiologist): MIP and/or 3D reconstructed images were created by the technologist. Radiation optimization: All CT scans at this facility use at least one of these dose optimization techniques: automated exposure control; mA and/or kV adjustment per patient size (includes targeted exams where dose is matched to clinical indication); or iterative reconstruction. Contrast material: ISOVUE 370; Contrast volume: 70 ml; Contrast route: INTRAVENOUS (IV); COMPARISON: CR XR CHEST PORTABLE 11/14/2021 10:52 AM FINDINGS: Pulmonary arteries: The main pulmonary trunk and right/left main pulmonary arteries demonstrate no definite intraluminal filling defect to suggest pulmonary embolism. Evaluation of pulmonary arterial branches within both lower lobes is suboptimal for the evaluation of pulmonary embolism due to artifact. Aorta: No aneurysm or dissection of the thoracic aorta. Mild atherosclerosis and noncalcified plaque involving the thoracic aorta. Additional atherosclerotic changes identified. Lungs: Atelectatic changes are identified within both lower lobes as well as the right middle lobe. A small consolidation is seen within the lingula. Atelectatic change and pneumonia are within the differential. Additional interstitial and airspace disease is seen within the left upper lobe of the lung. Advanced emphysematous changes are identified within the lungs, which are predominantly centrilobular. Bullae are visualized, with large bullae at the level the right pulmonary apex. A small hyperdense calcification/granuloma is identified within the right pulmonary apex posteriorly. Pleural spaces: No pneumothorax. No pleural effusion. Heart: Coronary artery calcification. No cardiomegaly. Lymph nodes: Calcified right hilar lymph nodes identified, suggestive of granulomatous disease. Bones/joints: Degenerative changes are identified at multiple thoracic levels, as well as involving the lower cervical spine. Increased concavity of the inferior T8 endplate is visualized. Soft tissues: Unremarkable. Other findings: For discussion of findings involving the abdomen and pelvis, refer to the abdomen/pelvis CT report from the same day. IMPRESSION: 1. No acute pulmonary embolism. 2. A small consolidation is seen within the lingula. Atelectatic change and pneumonia are within the differential. Additional interstitial and airspace disease is seen within the left upper lobe of the lung. 3. The main pulmonary trunk and right/left main pulmonary arteries demonstrate no definite intraluminal filling defect to suggest pulmonary embolism. Evaluation of pulmonary arterial branches within both lower lobes is suboptimal for the evaluation of pulmonary embolism due to artifact. If further evaluation is clinically indicated, a V/Q scan is suggested. 4. Atelectatic changes are identified within both lower lobes as well as the right middle lobe. 5. Advanced emphysematous changes are identified within the lungs. Bullae are visualized, with large bullae at the level the right pulmonary apex. 6. Calcified right hilar lymph nodes identified, suggestive of granulomatous disease. 7. Additional findings described above.
--- NOTE | 2021-11-15 13:34 | CT_ITS ---
PROCEDURE INFORMATION: Exam: CT Abdomen And Pelvis With Contrast Exam date and time: 11/15/2021 3:10 PM Age: 56 years old Clinical indication: Abdominal pain; Generalized; Additional info: Abnormal liver on ultrasound TECHNIQUE: Imaging protocol: Computed tomography of the abdomen and pelvis with contrast. Radiation optimization: All CT scans at this facility use at least one of these dose optimization techniques: automated exposure control; mA and/or kV adjustment per patient size (includes targeted exams where dose is matched to clinical indication); or iterative reconstruction. Contrast material: ISOVUE; Contrast volume: 70 ml; Contrast route: IV; COMPARISON: CR XR CHEST PORTABLE 11/14/2021 10:52 AM FINDINGS: Liver: Within the right hepatic lobe, there is a 2.0 x 1.2 cm hypodense lesion, incompletely characterized on this study. Gallbladder and bile ducts: No calcified stones. No ductal dilation. Pancreas: Within the body of the pancreas, there is a 1.3 x 1.0 cm hypodense lesion. Differential considerations include pancreatic cyst, pseudocyst, IPMN, and cystic neoplasm. Spleen: Tiny calcifications are identified within the spleen, suggestive of granulomatous disease. Mild splenomegaly. The spleen measures 14.4 cm in the craniocaudad dimension. Adrenal glands: No mass. Kidneys and ureters: No hydronephrosis bilaterally. Mild nonspecific perinephric stranding bilaterally. Stomach and bowel: Evaluation of bowel is limited by the absence of oral contrast. Colonic diverticula are identified, without acute inflammatory stranding of the adjacent mesentery. Fecal distention of the rectum. No small bowel obstruction. Appendix: No evidence of appendicitis. Intraperitoneal space: No free air. No significant fluid collection. Vasculature: No abdominal aortic aneurysm. Atherosclerosis of the abdominal aorta and iliac arteries. Lymph nodes: No enlarged lymph nodes. Urinary bladder: Unremarkable as visualized. Reproductive: Calcification is visualized within the prostate. Bones/joints: Bilateral hip arthropathy. Osseous cystic changes seen within the superior acetabula bilaterally. Grade 1 anterolisthesis of L5 on S1 with bilateral spondylolysis. Degenerative changes are identified involving the the lumbar and lower thoracic spine. Varying degrees of neural foraminal narrowing seen from L3-L4 through L5-S1. Mild spinal canal stenosis at L3-L4 and L4-L5. Soft tissues: Unremarkable. Other findings: For discussion of findings within the chest, refer to the chest CT report from the same day. Motion artifact limits this study. IMPRESSION: 1. Within the right hepatic lobe, there is a 2.0 x 1.2 cm hypodense lesion, incompletely characterized on this study. 2. Tiny calcifications are identified within the spleen, suggestive of granulomatous disease. Mild splenomegaly. 3. Within the body of the pancreas, there is a 1.3 x 1.0 cm hypodense lesion. Differential considerations include pancreatic cyst, pseudocyst, IPMN, and cystic neoplasm. 4. Diverticulosis. 5. Grade 1 anterolisthesis of L5 on S1 with bilateral spondylolysis. 6. Additional findings described above. 7. A nonemergent MRI of the abdomen with/without contrast is recommended.
--- NOTE | 2021-11-15 13:52 | HMH.ITSTN ---
waiting on RN to call back with a plan on doing the CT due to the fact that the patients iv is in the wrist and we need AC or higher , she has contacted ordering doctor before we do the scan
--- NOTE | 2021-11-15 13:52 | PC.NURSE ---
I was notified by Yuko in radiology that they couldn't use the IV in pt's wrist, that they would need it in the ac or higher. I spoke with the patient about this and he was very upset they wouldn't use the one in the wrist and stated he didn't want an IV in the bend of his arm. I explained that we didn't have to keep it there if he didn't want it but he still doesn't want one placed. I notified radiology and PK Lyons. Will attempt to talk with patient again shortly.
[2021-11-15 14:32] LABS: Anion Gap 8.6 mEq/L (5-15); Blood Urea Nitrogen 40 mg/dl (9-20); Calcium 9.4 mg/dl (8.4-10.2); Carbon Dioxide 36 mmol/L (22.0-30.0); Chloride 97 mmol/L (98-107); Creatinine Clearance Estimated 111 mL/min (50-200); Estimated Glomerular Filt Rate 88 ml/min (>60); GFR (African American) 106 ML/MIN (>60); Glucose 141 mg/dl (74-100); Potassium 4.6 mmoL/L (3.5-5.1); Sodium 137 mmol/L (136-145)
--- NOTE | 2021-11-15 14:35 | PC.NURSE ---
I spoke with patient again and he ultimately agreed for IV placement to proceed with testing.
--- NOTE | 2021-11-15 14:46 | PC.NURSE ---
after one unsuccessful attempt at iv placement, ultrasound used for iv placement. 20 gauge placed in th r upper arm.
--- NOTE | 2021-11-15 17:19 | PC.NURSE ---
Patient is alert and oriented x4. Wheezes and rhonchi noted t/o lung walters. He's been weaned to baseline O2 at 2L NC and tolerating with stats measuring > 90%. He has an intermittent productive cough. He's used the urinal at the bedside independently. 300 mls of dark urine noted out thus far. He has been anxious and uncooperative with care at times. He's refusing prn ativan but he is aware it is available if he changes his mind. He has had multiple complaints such as having to have an IV, having to be hooked up the iv pole for antibiotic infusions, having to have labs drawn, have to have tests run, having a cardiac diet ordered, and others. He has been educated on the importance of compliance with these things in order to be able to monitor his health and care. I have explained all medications and side effects, purpose of testing, etc... and he has been more cooperative and less anxious appearing. Family is currently at bedside. Bed is locked and in the lowest position. Call light is within reach.
[2021-11-16] VITALS (9 sets, daily range): BP systolic 102–126; BP diastolic 52–82; PULSE 87–108; RESP 18–20; TEMP 36.4–36.8; O2SAT 91–99; BMI 26.1
--- NOTE | 2021-11-16 06:04 | PC.NURSE ---
Pt has rested intermittently throughout shift. Pt has reported back pain x1, medicated per MAR with relief. Pt has tolerated 2L NC with O2 >90%. Pt wore bipap at night and tolerated well. Pt has used urinal independently throughout shift. Lung sounds are scattered wheezing throughout. Pt walked with a walker and stand by assist to bathroom and did well. Pt had x1 BM this shift. Pt had a productive cough throughout shift.
[2021-11-16 07:03] LABS: Basophils # 0.1 K/mm3 (0-0.2); Basophils % 0.5 % (0.1-2.0); Eosinophils # 0.2 K/mm3 (0.0-0.4); Hematocrit 42.9 % (42.0-52.0); Lymphocytes # 1.2 K/mm3 (0.7-4.5); Lymphocytes % 6.2 % (10-50); Mean Corpuscular HGB Conc 31.7 g/dL (31.8-35.4); Mean Corpuscular Hemoglobin 29.7 pg (27.0-31.2); Mean Corpuscular Volume 93.5 fl (80-94); Mean Platelet Volume 8.7 fl (7.4-10.4); Monocytes # 0.7 K/mm3 (0.1-1.0); Monocytes % 3.6 % (1.7-9.3); Neutrophils # 17.6 K/mm3 (1.8-7.8); Neutrophils % 88.6 % (37.0-80.0); Platelet Count 292 K/mm3 (142-424); Red Blood Count 4.59 M/mm3 (4.60-6.20); Red Cell Distribution Width 13.3 % (11.5-17.5); White Blood Count 19.8 K/mm3 (4.8-10.8)
[2021-11-16 07:04] LABS: Hemoglobin 13.6 g/dL (14.1-18.0); MANUAL DIFFERENTIAL MANUAL DIFFERENTIAL (MANUAL DIFF)
[2021-11-16 07:10] LABS: Anion Gap 5.6 mEq/L (5-15); Blood Urea Nitrogen 37 mg/dl (9-20); Calcium 9.4 mg/dl (8.4-10.2); Carbon Dioxide 37 mmol/L (22.0-30.0); Chloride 100 mmol/L (98-107); Creatinine Clearance Estimated 112 mL/min (50-200); Estimated Glomerular Filt Rate 88 ml/min (>60); GFR (African American) 106 ML/MIN (>60); Glucose 110 mg/dl (74-100); Potassium 4.6 mmoL/L (3.5-5.1); Sodium 138 mmol/L (136-145)
[2021-11-16 07:11] LABS: Lymphocytes % 11 % (10-50); Monocytes % 1 % (2-9); Neutrophils % 88 % (42-76); Platelet Estimate Normal; RBC Morphology Normal; Total Cells Counted 100
--- NOTE | 2021-11-16 08:26 | HMH.PNCARD ---
Subjective Date: 11/16/21 Time: 08:26 Principal diagnosis: Sinus tach, pneumonia Interval history: 56-year-old white male in bed in no acute distress. He relates breathing has slightly improved. Results of CT of the chest and abdomen reviewed with the patient. Specifically no evidence of pulmonary embolus is noted. Coronary calcifications are identified. COPD is noted. Abnormalities in the liver and pancreas are noted. Echocardiogram shows normal ejection fraction with mild concentric LVH, mild biatrial enlargement and mild RV enlargement with normal contraction. No significant valve disease. Exam Vital signs and Labs for Last 24 Hours: Temp Pulse Resp BP Pulse Ox 97.6 F 108 H 20 103/59 L 94 L 11/16/21 08:00 11/16/21 08:00 11/16/21 08:00 11/16/21 08:00 11/16/21 08:00 Laboratory Results - last 24 hr 11/15/21 14:14: Sodium 137, Potassium 4.6 D, Chloride 97 L, Carbon Dioxide 36 H, Anion Gap 8.6, BUN 40 H, Creatinine 0.90, Estimated Creat Clear 111, Estimated GFR 88, Est GFR ( Amer) 106, Glucose 141 H, Calcium 9.4 11/16/21 06:27: WBC 19.8 H, RBC 4.59 L, Hgb 13.6 L D, Hct 42.9, MCV 93.5, MCH 29.7, MCHC 31.7 L, RDW 13.3, Plt Count 292 D, MPV 8.7, Neut % (Auto) 88.6 H, Lymph % (Auto) 6.2 L, Bureau % (Auto) 3.6, Eos % (Auto) 1.0, Baso % (Auto) 0.5, Neut # (Auto) 17.6 H, Lymph # (Auto) 1.2, Bureau # (Auto) 0.7, Eos # (Auto) 0.2, Baso # (Auto) 0.1, Total Counted 100, Neutrophils % (Manual) 88 H, Lymphocytes % (Manual) 11, Monocytes % (Manual) 1 L, Platelet Estimate Normal, RBC Morphology Normal 11/16/21 06:27: Sodium 138, Potassium 4.6, Chloride 100, Carbon Dioxide 37 H, Anion Gap 5.6, BUN 37 H, Creatinine 0.90, Estimated Creat Clear 112, Estimated GFR 88, Est GFR ( Amer) 106, Glucose 110 H D, Calcium 9.4 I & O for Last 24 hours: Intake & Output 11/13/21 11/14/21 11/15/21 11/16/21 11:59 11:59 11:59 11:59 Intake Total 480 / 480 930 / 930 Output Total 400 / 400 550 / 550 Balance 80 / 80 380 / 380 Weight 220 lb 185 lb 1.602 oz 186 lb 8.177 oz Microbiology Reports for the Last 24 Hours: Microbiology 11/15/21 08:55 Sputum - Expectorated Sputum Gram Stain - Final - Constitutional no acute distress - *Routine Respiratory Exam Present: CTA bilaterally - *Routine Cardiovascular Exam Present: RRR, tachycardia Progress Note: A&P (1) CAP (community acquired pneumonia) Status: Acute (2) Respiratory failure Status: Acute (3) COPD (chronic obstructive pulmonary disease) Status: Chronic (4) Acute exacerbation of chronic obstructive airways disease Status: Acute (5) Tobacco use Status: Chronic (6) Sepsis with organ dysfunction Status: Acute Assessment and Plan for All Diagnoses:: 1. Community-acquired pneumonia with sepsis and hypoxemia with hypercapnia. Defer to PCP and pulmonary. 2. RV enlargement with abnormal EKG. Related to Emphysema. No evidence of PE. 3. Abnormality of liver and pancreas. Defer to PCP. 4. Hyperkalemia, resolved. 5. Tachycardia due to pneumonia in addition to patient's underlying pulmonary issues. Improving. No BB or CCB started due to low BP and wheezing on exam. 6. Coronary artery calcifications on CT. Will plan for outpatient Brady myoview once lungs have improved. Start atorvastatin 40 mg daily. Allergy to aspirin. Nothing further to add. Follow up in our office in 2 wks to schedule stress testing.
--- NOTE | 2021-11-16 08:47 | HMH.ACPN2 ---
Internal Medicine - PN: Subj *Date: 11/16/21 *Time: 09:31 Interval history: 56-year-old male patient sitting up in bed, she reports feeling better today than yesterday and is more alert. Oxygen at 2 L and he reports that is his home setting. Discussed tobacco cessation and he will discuss with primary care at next visit Exam Vital signs and Labs for Last 24 Hours: Temp Pulse Resp BP Pulse Ox 97.6 F 108 H 20 103/59 L 94 L 11/16/21 08:00 11/16/21 08:00 11/16/21 08:00 11/16/21 08:00 11/16/21 08:00 Laboratory Results - last 24 hr 11/15/21 14:14: Sodium 137, Potassium 4.6 D, Chloride 97 L, Carbon Dioxide 36 H, Anion Gap 8.6, BUN 40 H, Creatinine 0.90, Estimated Creat Clear 111, Estimated GFR 88, Est GFR ( Amer) 106, Glucose 141 H, Calcium 9.4 11/16/21 06:27: WBC 19.8 H, RBC 4.59 L, Hgb 13.6 L D, Hct 42.9, MCV 93.5, MCH 29.7, MCHC 31.7 L, RDW 13.3, Plt Count 292 D, MPV 8.7, Neut % (Auto) 88.6 H, Lymph % (Auto) 6.2 L, [place] % (Auto) 3.6, Eos % (Auto) 1.0, Baso % (Auto) 0.5, Neut # (Auto) 17.6 H, Lymph # (Auto) 1.2, [place] # (Auto) 0.7, Eos # (Auto) 0.2, Baso # (Auto) 0.1, Total Counted 100, Neutrophils % (Manual) 88 H, Lymphocytes % (Manual) 11, Monocytes % (Manual) 1 L, Platelet Estimate Normal, RBC Morphology Normal 11/16/21 06:27: Sodium 138, Potassium 4.6, Chloride 100, Carbon Dioxide 37 H, Anion Gap 5.6, BUN 37 H, Creatinine 0.90, Estimated Creat Clear 112, Estimated GFR 88, Est GFR ( Amer) 106, Glucose 110 H D, Calcium 9.4 I & O for Last 24 hours: Intake & Output 07/25/11/14/21 11/15/21 11/16/21 23:59 23:59 23:59 23:59 Intake Total 1410 / 1410 Output Total 0 / 0 700 / 700 250 / 250 Balance 0 / 0 710 / 710 -250 / -250 Weight 186 lb 8.177 oz 185 lb 1.602 oz 186 lb 8.177 oz Microbiology Reports for the Last 24 Hours: Microbiology 11/15/21 08:55 Sputum - Expectorated Sputum Gram Stain - Final - Constitutional no acute distress, chronically ill appearing - *Routine HEENT Exam Head: Present: normocephalic Eye: Present: EOMI ENT: Present: mucous membranes moist - *Routine Neck Exam Present: trachea midline. Absent: tracheal deviation - *Routine Respiratory Exam Present: decreased breath sounds, wheezes. Absent: accessory muscle use - *Routine Cardiovascular Exam Present: RRR - *Routine Abdominal Exam Present: soft, normoactive bowel sounds. Absent: tenderness, firm - *Routine Extremities Exam Present: full ROM, pulses intact. Absent: cyanosis, clubbing, edema - *Routine Skin Exam Present: intact, dry. Absent: cyanosis, erythema - *Routine Neurological Exam Present: alert, oriented X3. Absent: pronator drift - Routine Psychiatric Exam Present: normal affect, normal thought process. Absent: tactile hallucinations Assessment and Plan (1) CAP (community acquired pneumonia) Status: Acute Qualifiers: Laterality: right Lung location: middle lobe of lung Qualified Code(s): J18.9 - Pneumonia, unspecified organism Category: Medical Code(s): J18.9 - Pneumonia, unspecified organism (2) Respiratory failure Status: Acute Qualifiers: Chronicity: acute Respiratory failure complication: hypercapnia Qualified Code(s): J96.02 - Acute respiratory failure with hypercapnia Category: Medical Code(s): J96.90 - Respiratory failure, unspecified, unspecified whether with hypoxia or hypercapnia (3) COPD (chronic obstructive pulmonary disease) Status: Chronic Qualifiers: COPD type: COPD with acute exacerbation Qualified Code(s): J44.1 - Chronic obstructive pulmonary disease with (acute) exacerbation Category: Medical Code(s): J44.9 - Chronic obstructive pulmonary disease, unspecified (4) Acute exacerbation of chronic obstructive airways disease Status: Acute Category: Medical Code(s): J44.1 - Chronic obstructive pulmonary disease with (acute) exacerbation (5) Tobacco use Status: Chronic Category: Social Hx Code(
--- NOTE | 2021-11-16 09:04 | PC.NURSE ---
rounded on patient with md, case management, and dry roaster. Patient doing well at this time. plan to await for dr. gil and his recommendations. probable discharge if cleared from pulmonology.
--- NOTE | 2021-11-16 09:32 | HMH.PULMPN ---
Internal Medicine - PN: Subj *Date: 11/16/21 *Time: 10:45 Interval history: No acute respiratory events overnight Exam - Constitutional Constitutional:: Present: no acute distress - HENMT Exam HENMT: Present: normocephalic - Eye Exam Eyes:: Present: normal appearance both eyes and related structures - Neck Exam Neck:: Present: normal visual inspection - Respiratory Exam Respiratory:: Present: able to speak in complete sentences, no respiratory distress - Cardiovascular Exam Cardiac:: Present: S1, S2 - GI Exam GI:: Present: soft - Skin Exam Skin: Present: warm - Neurological Exam Neurological: Present: alert, awake - Extremities Exam Extremities: Present: no cyanosis, no clubbing Assessment and Plan (1) CAP (community acquired pneumonia) Status: Acute Qualifiers: Laterality: right Lung location: middle lobe of lung Qualified Code(s): J18.9 - Pneumonia, unspecified organism Category: Medical Code(s): J18.9 - Pneumonia, unspecified organism (2) Respiratory failure Status: Acute Qualifiers: Chronicity: acute Respiratory failure complication: hypercapnia Qualified Code(s): J96.02 - Acute respiratory failure with hypercapnia Category: Medical Code(s): J96.90 - Respiratory failure, unspecified, unspecified whether with hypoxia or hypercapnia (3) COPD (chronic obstructive pulmonary disease) Status: Chronic Qualifiers: COPD type: COPD with acute exacerbation Qualified Code(s): J44.1 - Chronic obstructive pulmonary disease with (acute) exacerbation Category: Medical Code(s): J44.9 - Chronic obstructive pulmonary disease, unspecified (4) Acute exacerbation of chronic obstructive airways disease Status: Acute Category: Medical Code(s): J44.1 - Chronic obstructive pulmonary disease with (acute) exacerbation (5) Tobacco use Status: Chronic Category: Social Hx Code(s): Z72.0 - Tobacco use (6) Sepsis with organ dysfunction Status: Acute Category: Medical Code(s): A41.9 - Sepsis, unspecified organism; R65.20 - Severe sepsis without septic shock - Assessment and plan all Dx Assessment and Plan for all problems:: #COPD exacerbation: #Hypercarbic respiratory failure Current smoker greater than [id number] smoking history on triple inhaler therapy long-term oxygen therapy at 2 L. Previously in pulmonary clinic once, however has been noncompliant with his testing and follow-up appointments. Home medications including Trelegy inhaler along with DuoNebs/albuterol every 6 hours on as-needed basis No recent prior PFTs. Overnight pulse oximetry testing from June 2021 did not show any significant desaturations. ABG on admission hypercarbic respiratory failure, 7.28, 75.4 and PO2 67.4. Afebrile. Leukocytosis on admission, 18.6, neutrophilic predominant. Hyperkalemia noted. Chest x-ray, hyperinflated lungs along with prominent bilateral lobe airspace disease and increased interstitial markings concerning for vascular congestion volume overload / ILD. could not see the costophrenic angles Interval update: Stable respiratory status continued to remain on 2 L nasal cannula. Significant improvement in leukocytosis, continue to remain elevated now at 19.8. CTA reviewed, not really concerning for pulmonary embolism warranting VQ scan at this point of time patient at baseline respiratory status. Small left middle lobe consolidation. Will consider D-dimer and lower extremity Doppler. No suspicious lung lesions / nodules noted on his CT chest. Bilateral diffuse emphysematous changes noted CT abdomen concerning lesions in liver and pancreas, managed by primary team Plan: -Continue Trelegy 100 inhaler. -Continue DuoNebs every 6 hours and as needed basis -Change antibiotics to levofloxacin x 5 days (Prior history of Pseudomonas, Klebsiella and Serratia all sensitive to levofloxacin) -Prednisone 40 mg daily x5 days #Thank you for involving pulmonary in this patient ca
--- NOTE | 2021-11-16 09:46 | CA_ITS ---
FINAL REPORT CLINICAL HISTORY: Hypoxia FINDINGS: DUPLEX VENOUS SONOGRAPHY OF THE BILATERAL LOWER EXTREMITIES Multiple transverse and longitudinal scans were performed of the femoropopliteal deep venous systems, with augmentation and compression maneuvers. FINDINGS: Normal phasic flow was noted in the visualized deep venous systems. No intraluminal increased echogenicity is noted to suggest thrombus. There is normal compression and augmentation of the venous structures. No abnormal venous collaterals are seen. IMPRESSION: No evidence of deep venous thrombosis of the bilateral lower extremities. Reviewed, Interpreted and Dictated by Zhanna May MD Transcribed by Manuel Alberto Authenticated and [facility]
--- NOTE | 2021-11-16 16:39 | PC.NURSE ---
pt is A/ox4 he has been anxious about going home today. I tried to talk him down about wanting to leave. He is afraid of losing his housing with not paying his lot rent. He has being using the urinal independently. He has been pleasant all shift. He has been having slight tremors in his hands. He claims its from his anxiety.
[2021-11-17] VITALS: BP 121/80; PULSE 80; RESP 24; TEMP 36.7; O2SAT 100
[2021-11-17 02:00] VITALS: RESP 20; RESP 22
[2021-11-17 04:00] VITALS: BP 121/66; PULSE 76; RESP 22; TEMP 36.7; O2SAT 96
[2021-11-17 04:47] VITALS: BMI 26.2
[2021-11-17 06:41] VITALS: O2SAT 93
[2021-11-17 06:47] LABS: Basophils # 0.1 K/mm3 (0-0.2); Basophils % 0.6 % (0.1-2.0); Eosinophils # 0.1 K/mm3 (0.0-0.4); Eosinophils % 0.7 % (0.1-12.0); Hemoglobin 13.5 g/dL (14.1-18.0); Lymphocytes # 1.5 K/mm3 (0.7-4.5); Lymphocytes % 15.9 % (10-50); Mean Corpuscular HGB Conc 31.4 g/dL (31.8-35.4); Mean Corpuscular Hemoglobin 29.8 pg (27.0-31.2); Mean Platelet Volume 8.4 fl (7.4-10.4); Monocytes # 0.5 K/mm3 (0.1-1.0); Monocytes % 4.9 % (1.7-9.3); Neutrophils # 7.5 K/mm3 (1.8-7.8); Neutrophils % 77.8 % (37.0-80.0); Platelet Count 254 K/mm3 (142-424); Red Blood Count 4.53 M/mm3 (4.60-6.20); Red Cell Distribution Width 13.1 % (11.5-17.5); White Blood Count 9.6 K/mm3 (4.8-10.8)
[2021-11-17 06:48] LABS: Blood Urea Nitrogen 34 mg/dl (9-20); Chloride 100 mmol/L (98-107); Creatinine Clearance Estimated 127 mL/min (50-200); Estimated Glomerular Filt Rate 101 ml/min (>60); GFR (African American) 122 ML/MIN (>60); Glucose 97 mg/dl (74-100); Potassium 4.4 mmoL/L (3.5-5.1); Sodium 140 mmol/L (136-145)
--- NOTE | 2021-11-17 06:50 | PC.NURSE ---
Pt rested intermittently throughout shift. Pt has tolerated 2L NC well with O2 >90%. Pt reported some anxiety at beginning of shift, admin meds and pt seemed better. Pt used urinal independently. No acute events this shift. VSS. Lung sounds wheezing scattered bilaterally.
[2021-11-17 06:54] LABS: Anion Gap 6.4 mEq/L (5-15); Carbon Dioxide 38 mmol/L (22.0-30.0)
[2021-11-17 07:42] VITALS: BP 106/72; PULSE 120; RESP 18; TEMP 36.4; O2SAT 95
--- NOTE | 2021-11-17 09:01 | HMH.DCSUM ---
General - General Admission date:: 11/14/21 Discharge date: 11/17/21 HPI HPI: Is a 56-year-old white male, patient in our practice, presented to the emergency room earlier with worsening shortness of breath. Arrived via EMS. He was given albuterol prior to arrival. His work-up in the emergency room included arterial blood gas which showed hypercapnia and hypoxia. He was placed on BiPAP. Chest x-ray shows bibasilar infiltrates, worse on the left, very small effusion at the left base. He is admitted for further evaluation and treatment Hospital Course Hospital Course: Patient was admitted. Placed on BiPAP and antibiotics and steroids. Improved in a stepwise fashion. A major component of his dyspnea appears to be anxiety. Pulmonary consultation was performed, appreciate input. Patient continued to improve and was able to be weaned off BiPAP over the last 24 hours and this morning it was at his baseline per his report. Exam had improved. Plan will be to discharge home today with Levaquin, prednisone, patient reports that he has not medicines for his nebulizers and his oxygen at home. We will set him up with pulmonary and his primary care follow-up as indicated. Objective Vital signs: Temp Pulse Resp BP Pulse Ox 97.6 F 120 H 18 106/72 L 95 11/17/21 07:42 11/17/21 07:42 11/17/21 07:42 11/17/21 07:42 11/17/21 07:42 no acute distress - *Routine HEENT Exam Head: Present: normocephalic Eye: Present: EOMI, PERRL ENT: Present: mucous membranes moist - *Routine Neck Exam Present: supple - *Routine Respiratory Exam Present: rhonchi, wheezes Comments: Exam is better than recorded notes. Appears comfortable. - *Routine Cardiovascular Exam Present: RRR - *Routine Abdominal Exam Present: soft, normoactive bowel sounds. Absent: tenderness - *Routine Extremities Exam Absent: cyanosis, clubbing, edema - *Routine Skin Exam Present: warm. Absent: rash - Detailed Eye Exam Eyelids: Bilateral normal inspection Results Labs on day of discharge: Labs from last 24 hours 11/17/21 11/17/21 11/16/21 06:17 06:17 10:38 WBC 9.6 D RBC 4.53 L Hgb 13.5 L Hct 43.0 MCV 95.0 H MCH 29.8 MCHC 31.4 L RDW 13.1 Plt Count 254 MPV 8.4 Neut % (Auto) 77.8 Lymph % (Auto) 15.9 [place] % (Auto) 4.9 Eos % (Auto) 0.7 Baso % (Auto) 0.6 Neut # (Auto) 7.5 Lymph # (Auto) 1.5 [place] # (Auto) 0.5 Eos # (Auto) 0.1 Baso # (Auto) 0.1 D-Dimer 0.80 H Sodium 140 Potassium 4.4 Chloride 100 Carbon Dioxide 38 H Anion Gap 6.4 BUN 34 H Creatinine 0.80 Estimated Creat Clear 127 Estimated GFR 101 Est GFR ( Amer) 122 Glucose 97 Calcium 9.0 Preliminary micro results at discharge 11/15/21 08:55 Sputum Culture - Preliminary Sputum - Expectorated Sputum 11/14/21 11:35 Blood Culture - Preliminary Blood NO GROWTH AFTER 48 HOURS 11/14/21 11:35 Blood Culture - Preliminary Blood NO GROWTH AFTER 48 HOURS DS: Diagnosis - Discharge Diagnosis (1) CAP (community acquired pneumonia) Status: Acute (2) Respiratory failure Status: Acute (3) COPD (chronic obstructive pulmonary disease) Status: Chronic (4) Acute exacerbation of chronic obstructive airways disease Status: Acute (5) Tobacco use Status: Chronic (6) Sepsis with organ dysfunction Status: Acute Discharge Plan - Patient Discharge Instructions ACTIVITY: Continue current activity DIET: continue same diet Patient Instructions: Chronic Obstructive Pulmonary Disease, DI for Pneumonia -- Adult, DI for Respiratory Failure, How to Use a Bilevel Positive Airway Pressure (BiPAP) Device - Follow up Plan Follow up with: Saul Garrison PA [Physician [employer] Manager] - 11/30/21 11:00 am Roberto Kay MD [Staff Physician] - 11/21/21 Disposition: Home, Self-Care Condition at discharge:: Improved Home Medica
--- NOTE | 2021-11-17 09:14 | PC.NURSE ---
patient discharge in. noted in a previous note from cardiology that he would recommend atorvastatin 40mg daily. patient is not currently on that at home. notified dr. rodríguez who stated he would send an order in.
--- NOTE | 2021-11-17 09:40 | HMH.PULMPN ---
Internal Medicine - PN: Subj *Date: 11/17/21 *Time: 10:48 Interval history: No acute respiratory events overnight. Admits continued improvement in his respiratory symptoms. Exam - Constitutional Constitutional:: Present: no acute distress, comfortable - HENMT Exam HENMT: Present: normocephalic - Eye Exam Eyes:: Present: normal appearance both eyes and related structures - Neck Exam Neck:: Present: normal visual inspection - Respiratory Exam Respiratory:: Present: able to speak in complete sentences, no respiratory distress, wheezing - Cardiovascular Exam Cardiac:: Present: S1, S2 - GI Exam GI:: Present: soft - Skin Exam Skin: Present: warm, no rash - Neurological Exam Neurological: Present: alert, awake - Extremities Exam Extremities: Present: no cyanosis, no clubbing, no edema Assessment and Plan (1) CAP (community acquired pneumonia) Status: Acute Qualifiers: Laterality: right Lung location: middle lobe of lung Qualified Code(s): J18.9 - Pneumonia, unspecified organism Category: Medical Code(s): J18.9 - Pneumonia, unspecified organism (2) Respiratory failure Status: Acute Qualifiers: Chronicity: acute Respiratory failure complication: hypercapnia Qualified Code(s): J96.02 - Acute respiratory failure with hypercapnia Category: Medical Code(s): J96.90 - Respiratory failure, unspecified, unspecified whether with hypoxia or hypercapnia (3) COPD (chronic obstructive pulmonary disease) Status: Chronic Qualifiers: COPD type: COPD with acute exacerbation Qualified Code(s): J44.1 - Chronic obstructive pulmonary disease with (acute) exacerbation Category: Medical Code(s): J44.9 - Chronic obstructive pulmonary disease, unspecified (4) Acute exacerbation of chronic obstructive airways disease Status: Acute Category: Medical Code(s): J44.1 - Chronic obstructive pulmonary disease with (acute) exacerbation (5) Tobacco use Status: Chronic Category: Social Hx Code(s): Z72.0 - Tobacco use (6) Sepsis with organ dysfunction Status: Acute Category: Medical Code(s): A41.9 - Sepsis, unspecified organism; R65.20 - Severe sepsis without septic shock - Assessment and plan all Dx Assessment and Plan for all problems:: #COPD exacerbation: #Hypercarbic respiratory failure Current smoker greater than [id number]-ncel smoking history on triple inhaler therapy long-term oxygen therapy at 2 L. Previously in pulmonary clinic once, however has been noncompliant with his testing and follow-up appointments. Home medications including Trelegy inhaler along with DuoNebs/albuterol every 6 hours on as-needed basis No recent prior PFTs. Overnight pulse oximetry testing from June 2021 did not show any significant desaturations. ABG on admission hypercarbic respiratory failure, 7.28, 75.4 and PO2 67.4. Afebrile. Leukocytosis on admission, 18.6, neutrophilic predominant. Hyperkalemia noted. Chest x-ray, hyperinflated lungs along with prominent bilateral lobe airspace disease and increased interstitial markings concerning for vascular congestion volume overload / ILD. could not see the costophrenic angles Interval update: Stable respiratory status continued to remain on 2 L nasal cannula. CTA reviewed, not really concerning for pulmonary embolism warranting VQ scan at this point of time patient at baseline respiratory status. Small left middle lobe consolidation / cavitary lesion. No suspicious lung lesions / nodules noted on his CT chest. Bilateral diffuse emphysematous changes noted. D-dimer slightly elevated at 0.80 negative LLE venous doppler CT abdomen concerning lesions in liver and pancreas, managed by primary team Plan: -Continue nasal cannula oxygen therapy to maintain O2 saturation goal of 89% and above. Currently on 2 L long-term oxygen therapy. -Continue Trelegy 100 inhaler. -Continue DuoNebs every 6 hours and as needed basis -Change antibiotics to levofloxacin x
--- NOTE | 2021-11-17 10:32 | PC.NURSE ---
Addendum entered by Yanira Rowe RN 11/17/21 10:47: pharmacy brought patient back his xanax stating upon further review patient had been taking them three times a day for months, and they suggested that patient start weaning himself down to prevent withdrawal symptoms instead of just stopping them. patient was educated on this, and has placed his medication with his belongings to take home Original Note: patient stated upon admission to jimy maldonado and danita maldonado that he did not want to take his xanax home at discharge. medication was counted (53) and locked up in the drawer. at discharge patient states to jimy maldonado and zakiya maldonado that he wishes to have his xanax disposed of by our pharmacy. patient had a total of 53 xanax left in his bottle, and this was handed over to fredy in pharmacy to dispose of.
--- NOTE | 2021-11-20 13:35 | CARE MANAGER ---
Contacted patient related to hospital discharge follow up. Aware of appointments with cardiology and Ne[facility]. Denies any questions or concerns at this time. JOHNNY Adler
== END 2021-11-17 10:58 | disposition home or self-care (01) | DRG 193 ==
LOC: ER 12:18 → 2ND 12:19
PROVIDERS: Internal Medicine Pulmonary Disease; Nurse Practitioner Family; Physician Assistant; Admitting Provider Family Medicine; Emergency Provider Emergency Medicine; PCP Nurse Practitioner Family; Visit Provider Family Medicine
DX: J18.9 Pneumonia, unspecified organism (principal); A41.9 Sepsis, unspecified organism; J96.02 Acute respiratory failure with hypercapnia; J44.1 Chronic obstructive pulmonary disease with (acute) exacerbation; J44.0 Chronic obstructive pulmonary disease with (acute) lower respiratory infection; F17.210 Nicotine dependence, cigarettes, uncomplicated; F41.9 Anxiety disorder, unspecified; M54.9 Dorsalgia, unspecified; E87.5 Hyperkalemia; Z99.81 Dependence on supplemental oxygen
CPT/HCPCS: 36415; 71045; 71275; 74177; 80048; 80053; 82803; 83605; 84145; 84484; 85007; 85025; 85378; 87040; 87070; 87077; 87205; 93005; 93306; 93970; 94640; 94660; 97162; 97165; 99285; C9803; J0456; J0696; J1956; Q9967; U0003; U0005

== ENCOUNTER → 2022-02-07 14:36 | Outpatient (CLI) | payer MEDICAID, SELFPAY ==
[2022-02-07 18:45] LABS: Amphetamine/Metha Screen,Urine Negative ng/ml (<1000)
[2022-02-07 18:46] LABS: Barbiturates Screen,Urine Negative ng/ml (<200)
[2022-02-07 18:47] LABS: Benzodiazepines Screen,Urine Negative ng/ml (<200); Cannabinoid Screen,Urine Negative ng/ml (<50)
[2022-02-07 18:48] LABS: Cocaine Screen,Urine Negative ng/ml (<300)
[2022-02-07 18:49] LABS: Methadone Screen,Urine Negative ng/ml (<300); Opiate Screen,Urine Negative ng/ml (<300)
[2022-02-07 18:50] LABS: Phencyclidine Screen,Urine Negative ng/ml (<25)
== END ==
PROVIDERS: PCP Emergency Medicine; Visit Provider Emergency Medicine
DX: Z79.899 Other long term (current) drug therapy (principal)
CPT/HCPCS: 80305

== ENCOUNTER → 2022-02-12 16:09 | Outpatient (CLI) | payer MEDICAID, SELFPAY ==
[2022-02-12 17:54] LABS: Basophils # 0.1 K/mm3 (0-0.2); Eosinophils # 0.5 K/mm3 (0.0-0.4); Eosinophils % 4.6 % (0.1-12.0); Hematocrit 43.3 % (42.0-52.0); Hemoglobin 13.6 g/dL (14.1-18.0); Lymphocytes # 1.9 K/mm3 (0.7-4.5); Lymphocytes % 19.4 % (10-50); Mean Corpuscular HGB Conc 31.4 g/dL (31.8-35.4); Mean Corpuscular Hemoglobin 28.2 pg (27.0-31.2); Mean Corpuscular Volume 89.7 fl (80-94); Mean Platelet Volume 8.6 fl (7.4-10.4); Monocytes # 0.5 K/mm3 (0.1-1.0); Monocytes % 5.3 % (1.7-9.3); Neutrophils # 6.7 K/mm3 (1.8-7.8); Neutrophils % 69.7 % (37.0-80.0); Platelet Count 244 K/mm3 (142-424); Red Blood Count 4.82 M/mm3 (4.60-6.20); Red Cell Distribution Width 14.1 % (11.5-17.5); White Blood Count 9.7 K/mm3 (4.8-10.8)
[2022-02-12 18:10] LABS: C-Reactive Protein 8.1 mg/L (0-4)
== END ==
PROVIDERS: PCP Emergency Medicine; Visit Provider Internal Medicine Pulmonary Disease
DX: R06.09 Other forms of dyspnea (principal); J45.909 Unspecified asthma, uncomplicated
CPT/HCPCS: 36415; 85025; 86140

== ENCOUNTER 2022-03-02 18:54 | Emergency (ER) | payer MEDICAID, SELFPAY ==
[2022-03-02 18:54] VITALS: BP 109/71; PULSE 105; RESP 22; TEMP 37.2; O2SAT 92; BMI 29.2
[2022-03-02 18:59] LABS: Coronavirus 19, PCR Not Detected (NotDetected); Influenza B, PCR Not Detected (NotDetected)
--- NOTE | 2022-03-02 19:18 | XR_ITS ---
PROCEDURE INFORMATION: Exam: XR Chest Exam date and time: 03/02/2022 7:48 PM Age: 56 years old Clinical indication: Shortness of breath; Additional info: Concern for copd exacerbation/pneumonia TECHNIQUE: Imaging protocol: Radiologic exam of the chest. Views: 1 view. COMPARISON: CR XR CHEST PORTABLE 11/14/2021 10:52 AM FINDINGS: Lungs: Bilateral hyperinflation is present. Atelectasis and/or early infiltrative changes noted within the right lung base. Pleural spaces: Right pleural effusion. There is no evidence of pneumothorax. Heart/Mediastinum: Unremarkable. No cardiomegaly. Bones/joints: The thoracic spine demonstrates mild degenerative changes at multiple levels. IMPRESSION: 1. Bilateral hyperinflation is present. 2. Atelectasis and/or early infiltrative changes noted within the right lung base. 3. Right pleural effusion. 4. There is no evidence of pneumothorax.
--- NOTE | 2022-03-02 19:28 | HMH.EDGENADL ---
Discharge Plan Disposition Patient Disposition: Home, Self-Care Condition: Fair Prescriptions Prescriptions: New doxycycline hyclate 100 mg tablet 100 mg PO BID 5 Days Qty: 10 0RF prednisone 50 mg tablet 50 mg PO DAILY 5 Days Qty: 5 0RF ipratropium-albuterol 0.5 mg-3 mg(2.5 mg base)/3 mL solution for nebulization 3 ml inhalation Q6H PRN (Reason: wheezing) Qty: 90 0RF oseltamivir [Tamiflu] 75 mg capsule 75 mg PO BID 5 Days Qty: 10 0RF No Action albuterol sulfate 90 mcg/actuation HFA aerosol inhaler 2 puff IH Q4HP PRN (Reason: Shortness Of Breath) Qty: 8.5 3RF Rx Instructions: --SHAKE WELL-- AND INHALE 2 PUFFS EVERY 4 TO 6 HOURS NEEDED FOR SHORTNESS OF AIR ipratropium-albuterol 0.5 mg-3 mg(2.5 mg base)/3 mL solution for nebulization 3 ml IH QID PRN (Reason: shortness of breath or wheezing) 90 Days Qty: 270 3RF ergocalciferol (vitamin D2) 1,250 mcg (50,000 unit) capsule 50,000 unit PO WEEKLY Qty: 10 10RF alprazolam 0.25 mg tablet 0.25 mg PO TIDP PRN (Reason: anxiety) Qty: 90 1RF oxycodone 5 mg tablet 5 mg PO TID Qty: 90 0RF oocloywjxdo-xlrbuhgiw-bxaikoyx 100-62.5-25 mcg blister with device 1 inh IH DAILY Qty: 60 12RF atorvastatin 40 MG tablet 40 mg PO HS Qty: 90 0RF Clinical Impressions Clinical Impression: Influenza, COPD exacerbation Instructions Patient Instructions: DI for Chronic Obstructive Pulmonary Disease, DI for Influenza -- Adult Discharge ED Provider: Sabino Roberts General Adult HPI General Chief complaint: Upper Respiratory Infection Stated complaint: flu like symptoms Time Seen by Provider: 03/02/22 19:05 Mode of Arrival: EMS Source of Information: Patient Limitations: No Limitations Description of Symptoms (Recalled from ER Triage Doc. by RN): pt c/o body aches,nauesa,fever since last night History of Present Illness HPI narrative: Patient is a 56-year-old male who presents with concern for multiple complaints. He says that he has a history of COPD and normally has some sputum production and wears 2 L at all times. He says that he started to experience body aches, nausea, fever and chills last night. He denies any changes in his sputum production. He says his symptoms are gotten worse throughout the day so he wanted to come in for evaluation. He denies any chest pain. He says that he feels like he cannot get a deep breath and is having a harder time breathing. Denies any pain with deep inspiration. Denies any leg swelling. Denies any abdominal pain. Related Data Previous Rx's Medication Instructions Recorded atorvastatin 40 mg tablet 40 mg PO HS #90 tabs 11/17/21 ergocalciferol (vitamin D2) 1,250 50,000 unit PO WEEKLY Supplement 11/21/21 mcg (50,000 unit) capsule #10 caps fluticasone fur. 100 mcg-umeclid 1 inh inhalation DAILY COPD #60 ea 01/05/22 62.5 mcg-vilant 25 mcg inhalat.powder alprazolam 0.25 mg tablet 0.25 mg PO TIDP PRN anxiety #90 02/07/22 tabs oxycodone 5 mg tablet 5 mg PO TID Pain #90 tabs 02/07/22 albuterol sulfate 90 mcg/actuation 2 puff inhalation Q4HP PRN 02/12/22 aerosol inhaler Shortness Of Breath #8.5 grams ipratropium 0.5 mg-albuterol 3 mg 3 ml inhalation QID PRN shortness 02/12/22 (2.5 mg base)/3 mL nebulization of breath or wheezing 90 days #270 soln mL doxycycline hyclate 100 mg tablet 100 mg PO BID 5 days #10 tabs 03/02/22 ipratropium 0.5 mg-albuterol 3 mg 3 ml inhalation Q6H PRN wheezing 03/02/22 (2.5 mg base)/3 mL nebulization #90 mL soln oseltamivir 75 mg capsule (Tamiflu) 75 mg PO BID 5 days #10 caps 03/02/22 prednisone 50 mg tablet 50 mg PO DAILY 5 days #5 tabs 03/02/22 Allergies Allergy/AdvReac Type Severity Reaction Status Date / Time aspirin [ASPIRIN] Allergy Mild Verified 02/12/22 15:25 codeine [CODEINE] Allergy Mild Verified 02/12/22 15:25 ibuprofen [IBUPROFEN] Allergy Unknown Verified 02/12/22 15:25 acetaminophen [From Tylenol] Allergy Verified 02/12/22 15:25
[2022-03-02 19:31] VITALS: BP 138/89; PULSE 132; O2SAT 95
[2022-03-02 19:48] LABS: Influenza A, PCR Detected (NotDetected)
[2022-03-02 20:22] LABS: Basophils # 0.2 K/mm3 (0-0.2); Basophils % 2.2 % (0.1-2.0); Eosinophils # 0.1 K/mm3 (0.0-0.4); Eosinophils % 1.4 % (0.1-12.0); Hematocrit 46.5 % (42.0-52.0); Hemoglobin 15.1 g/dL (14.1-18.0); Lymphocytes # 0.4 K/mm3 (0.7-4.5); Lymphocytes % 4.7 % (10-50); Mean Corpuscular HGB Conc 32.4 g/dL (31.8-35.4); Mean Corpuscular Hemoglobin 28.8 pg (27.0-31.2); Mean Corpuscular Volume 88.7 fl (80-94); Mean Platelet Volume 8.3 fl (7.4-10.4); Monocytes # 0.6 K/mm3 (0.1-1.0); Monocytes % 7.1 % (1.7-9.3); Neutrophils # 7.4 K/mm3 (1.8-7.8); Neutrophils % 84.7 % (37.0-80.0); Platelet Count 172 K/mm3 (142-424); Red Blood Count 5.24 M/mm3 (4.60-6.20); Red Cell Distribution Width 14.3 % (11.5-17.5); White Blood Count 8.7 K/mm3 (4.8-10.8)
--- NOTE | 2022-03-02 20:33 | PC.NURSE ---
Pt provided with warm blanket and bed adjusted for comfort.
[2022-03-02 20:39] LABS: Alanine Aminotransferase 17 U/L (12-78); Albumin Level 4.7 g/dl (3.5-5.0); Albumin/Globulin Ratio 1.4 (1.1-1.8); Alkaline Phosphatase 83 U/L (38-126); Anion Gap 15.5 mEq/L (5-15); Aspartate Amino Transferase 32 U/L (17-59); Bilirubin,Total 1.2 mg/dl (0.2-1.3); Blood Urea Nitrogen 21 mg/dl (9-20); Calcium 9.6 mg/dl (8.4-10.2); Carbon Dioxide 36 mmol/L (22.0-30.0); Chloride 88 mmol/L (98-107); Creatinine Clearance Estimated 142 mL/min (50-200); Estimated Glomerular Filt Rate 101 ml/min (>60); GFR (African American) 122 ML/MIN (>60); Globulin 3.3 g/dL (1.3-3.2); Glucose 103 mg/dl (74-100); Potassium 4.5 mmoL/L (3.5-5.1); Sodium 135 mmol/L (136-145)
[2022-03-02 20:45] LABS: C-Reactive Protein 142.4 mg/L (0-4)
[2022-03-02 20:55] LABS: Procalcitonin 0.137 ng/mL (0.0-2.0)
[2022-03-02 21:23] LABS: Erythrocyte Sedimentation Rate 10 mm/hr (0-20)
[2022-03-02 22:33] VITALS: BP 138/89; PULSE 120; RESP 22; TEMP 37.2; O2SAT 94
--- NOTE | 2022-03-02 22:41 | PC.NURSE ---
pt awaiting family with o2 tank
== END 2022-03-02 23:03 | disposition home or self-care (01) ==
PROVIDERS: Emergency Provider Student in an Organized Health Care Education/Training Program; PCP Emergency Medicine
DX: J06.9 Acute upper respiratory infection, unspecified (principal); Z88.6 Allergy status to analgesic agent; J44.9 Chronic obstructive pulmonary disease, unspecified; Z83.3 Family history of diabetes mellitus; Z80.9 Family history of malignant neoplasm, unspecified; Z82.49 Family history of ischemic heart disease and other diseases of the circulatory system
CPT/HCPCS: 71045; 80053; 84145; 85025; 85651; 86140; C9803; J0456; J3475; U0003; U0005

== ENCOUNTER 2022-03-05 02:07 | Inpatient (IN) | payer MEDICAID, SELFPAY ==
[2022-03-05] VITALS (35 sets, daily range): BP systolic 104–173; BP diastolic 51–105; PULSE 81–152; RESP 3–30; TEMP 36.3–37.2; O2SAT 91–99; BMI 29.2; BMI 24.2; BMI 24.0
--- NOTE | 2022-03-05 02:07 | PC.NURSE ---
Notified RT of need for ABG
--- NOTE | 2022-03-05 02:12 | PC.NURSE ---
RT at to obtain ABG
[2022-03-05 02:22] LABS: ABG Base Excess 8.5 mmol/L (-2.4-2.3); ABG HCO3 37.8 mmhg (22.0-26.0); ABG Oxygen Saturation 99 % (90-100); ABG PO2 183.3 mmhg (80-100); ABG TCO2 41.5 mmhg (23-27)
--- NOTE | 2022-03-05 02:36 | PC.NURSE ---
Dr. Carr at
--- NOTE | 2022-03-05 02:49 | HMH.EDSOB ---
Discharge Plan Disposition Chief Complaint: Shortness of Breath/Dyspnea Prescriptions Prescriptions: No Action albuterol sulfate 90 mcg/actuation HFA aerosol inhaler 2 puff IH Q4HP PRN (Reason: Shortness Of Breath) Qty: 8.5 3RF Rx Instructions: --SHAKE WELL-- AND INHALE 2 PUFFS EVERY 4 TO 6 HOURS NEEDED FOR SHORTNESS OF AIR ipratropium-albuterol 0.5 mg-3 mg(2.5 mg base)/3 mL solution for nebulization 3 ml IH QID PRN (Reason: shortness of breath or wheezing) 90 Days Qty: 270 3RF ergocalciferol (vitamin D2) 1,250 mcg (50,000 unit) capsule 50,000 unit PO WEEKLY Qty: 10 10RF alprazolam 0.25 mg tablet 0.25 mg PO TIDP PRN (Reason: anxiety) Qty: 90 1RF oxycodone 5 mg tablet 5 mg PO TID Qty: 90 0RF nvfmnwaldyd-yoazbqprb-oqgvxuqr 100-62.5-25 mcg blister with device 1 inh IH DAILY Qty: 60 12RF atorvastatin 40 MG tablet 40 mg PO HS Qty: 90 0RF doxycycline hyclate 100 mg tablet 100 mg PO BID 5 Days Qty: 10 0RF prednisone 50 mg tablet 50 mg PO DAILY 5 Days Qty: 5 0RF ipratropium-albuterol 0.5 mg-3 mg(2.5 mg base)/3 mL solution for nebulization 3 ml inhalation Q6H PRN (Reason: wheezing) Qty: 90 0RF oseltamivir [Tamiflu] 75 mg capsule 75 mg PO BID 5 Days Qty: 10 0RF Discharge ED Provider: Kaushal Carr Resp/SOB HPI General Chief Complaint: Shortness of Breath/Dyspnea Stated Complaint: SOA Time Seen by Provider: 03/05/22 02:49 Mode of Arrival: EMS Source of Information: Patient, EMS and Medical Record Limitations: No Limitations Description of Symptoms (Recalled from ER Triage Doc. by RN): pt states he is still having flu symptoms and shortness or breath the pt was previously diagnosed with the flu in the er and stated that he could not get tamaflu History of Present Illness pt with recent ed eval and has flu andhas progressive sob with hx of copd MD Complaint: shortness of breath and cough Onset (ago): day(s) Context: recent illness Severity: moderate Known history of: COPD Associated symptoms: cough Treatment prior to arrival: bronchodilator Related Data Home oxygen amount: 2 liters Previous Rx's Medication Instructions Recorded atorvastatin 40 mg tablet 40 mg PO HS #90 tabs 11/17/21 ergocalciferol (vitamin D2) 1,250 50,000 unit PO WEEKLY Supplement 11/21/21 mcg (50,000 unit) capsule #10 caps fluticasone fur. 100 mcg-umeclid 1 inh inhalation DAILY COPD #60 ea 01/05/22 62.5 mcg-vilant 25 mcg inhalat.powder alprazolam 0.25 mg tablet 0.25 mg PO TIDP PRN anxiety #90 02/07/22 tabs oxycodone 5 mg tablet 5 mg PO TID Pain #90 tabs 02/07/22 albuterol sulfate 90 mcg/actuation 2 puff inhalation Q4HP PRN 02/12/22 aerosol inhaler Shortness Of Breath #8.5 grams ipratropium 0.5 mg-albuterol 3 mg 3 ml inhalation QID PRN shortness 02/12/22 (2.5 mg base)/3 mL nebulization of breath or wheezing 90 days #270 soln mL doxycycline hyclate 100 mg tablet 100 mg PO BID 5 days #10 tabs 03/02/22 ipratropium 0.5 mg-albuterol 3 mg 3 ml inhalation Q6H PRN wheezing 03/02/22 (2.5 mg base)/3 mL nebulization #90 mL soln oseltamivir 75 mg capsule (Tamiflu) 75 mg PO BID 5 days #10 caps 03/02/22 prednisone 50 mg tablet 50 mg PO DAILY 5 days #5 tabs 03/02/22 Allergies Allergy/AdvReac Type Severity Reaction Status Date / Time aspirin [ASPIRIN] Allergy Mild Verified 02/12/22 15:25 codeine [CODEINE] Allergy Mild Verified 02/12/22 15:25 ibuprofen [IBUPROFEN] Allergy Unknown Verified 02/12/22 15:25 acetaminophen [From Tylenol] Allergy Verified 02/12/22 15:25 tramadol Allergy Verified 02/12/22 15:25 PFSH PFSH Medical History Chronic hypoxemic respiratory failure COPD (chronic obstructive pulmonary disease) Dyspnea on exertion Pulmonary emphysema Screening for lung cancer Smoking greater than 30 pack years Tobacco abuse counseling Tobacco abuse disorder Tobacco use Surgical History History of colonoscopy History of anabella
--- NOTE | 2022-03-05 03:24 | ECG_ITS ---
APPROVED REPORT Exam: Resting ECG HR:149 bpm ECG Measurements Heart Rate 149 AXES WV 129 P 94 QRSd 94 QRS 131 QT 291 T 83 QTc 376 Conclusion SINUS TACHYCARDIA, O/w normal ecg ABNORMAL RHYTHM ECG UNCONFIRMED REPORT Electronically signed by : Chandler Pacheco MD 03/05/2022 21:11:33
[2022-03-05 03:25] LABS: Allen's Test Y; Oxygen 100 %; Source Right Radial
--- NOTE | 2022-03-05 03:25 | PC.NURSE ---
building construction supervisor notified for bed assignment, hospitalist would like pt to be ICU level care.
[2022-03-05 03:26] LABS: ABG PCO2 118.8 mmhg (35.0-45.0); ABG PH 7.12 mmol/L (7.35-7.45)
[2022-03-05 03:28] LABS: ABG Base Excess 8.5 mmol/L (-2.4-2.3); ABG HCO3 35.4 mmhg (22.0-26.0); ABG Oxygen Saturation 89 % (90-100); ABG PH 7.27 mmol/L (7.35-7.45); ABG PO2 57.7 mmhg (80-100); ABG TCO2 37.8 mmhg (23-27)
--- NOTE | 2022-03-05 03:29 | XR_ITS ---
PROCEDURE INFORMATION: Exam: XR Chest Exam date and time: 03/05/2022 3:49 AM Age: 56 years old Clinical indication: Shortness of breath; Additional info: SOA TECHNIQUE: Imaging protocol: Radiologic exam of the chest. Views: 1 view. COMPARISON: CR XR CHEST PORTABLE 03/02/2022 7:48 PM FINDINGS: Lungs: Lungs appear hyperinflated with lucency of the upper lobes bilaterally consistent with bullous change. There are strands of increased density at right lung base consistent with subsegmental atelectasis or scarring. Inflammation is possible. There is no dense focal consolidation Pleural spaces: Blunting of the costophrenic angles bilaterally may be due to scarring or small effusions. Heart/Mediastinum: Unremarkable. No cardiomegaly. Bones/joints: Unremarkable. IMPRESSION: 1. Hyperinflated lungs suggest COPD. 2. Strands of increased density at the right lung base consistent with subsegmental atelectasis or scarring. Inflammation is possible. No dense focal consolidation or mass.
--- NOTE | 2022-03-05 03:34 | EXP.HP ---
History of Present Illness *Admission Date: 03/05/22 *Reason for visit:: Acute respiratory failure with hypercarbia *History of present illness: 56-year-old male with a PMH significant for chronic resp failure on 2LNC, COPD, HTN, HLD, anxiety disorder, chronic pain disorder, alcohol and tobacco use disorder who presented to the ED in resp failure requiring immediate BiPAP support. Admission requested due to severe respiratory acidosis. Patient seen on BiPAP, lethargic, without family at the bedside limting HPI/ROS. Information obtained via chart review and from ED team. Patient tachycardic and hypertensive with co2 118 on arrival. He was started on solumedrol, azithromycin, CTX, and bronchodilators in the ED. He was seen in the ED on 03/02 for similiar complaints at which time he was diagnosed with Flu A and COPD exacerbation at which time he was started on steroids, doxycycline, duo nebs, Tamiflu and discharged home.? PFSH PFSH Medical History Chronic hypoxemic respiratory failure COPD (chronic obstructive pulmonary disease) Dyspnea on exertion Pulmonary emphysema Screening for lung cancer Smoking greater than 30 pack years Tobacco abuse counseling Tobacco abuse disorder Tobacco use Surgical History History of colonoscopy History of repair of ACL Family History (Updated 03/05/22 @ 05:56 by Estella Moody, JOHNNY) Other Alcohol abuse Cancer Coronary artery disease Diabetes Emphysema lung Social History (Updated 03/05/22 @ 05:57 by Estella Moody RN) Smoking Status: Current every day smoker tobacco type: cigarettes packs per day: 2 second hand exposure: Yes alcohol intake: former substance use type: denies use current occupational status: disabled Travel in the last 8 weeks: None household members: friend(s) housing: house Review of Systems Review of Systems Review of systems (narrative): Unable to assess due to critical illness Meds Home Medications and Allergies Home Medications Medication Instructions Recorded Confirmed Type atorvastatin 40 mg tablet 40 mg PO HS #90 tabs 11/17/21 03/05/22 Rx ergocalciferol (vitamin D2) 1,250 50,000 unit PO WEEKLY Supplement 11/21/21 03/05/22 Rx mcg (50,000 unit) capsule #10 caps fluticasone fur. 100 mcg-umeclid 1 inh inhalation DAILY COPD #60 ea 01/05/22 03/05/22 Rx 62.5 mcg-vilant 25 mcg inhalat.powder alprazolam 0.25 mg tablet 0.25 mg PO TIDP PRN anxiety #90 02/07/22 03/05/22 Rx tabs oxycodone 5 mg tablet 5 mg PO TID Pain #90 tabs 02/07/22 03/05/22 Rx albuterol sulfate 90 mcg/actuation 2 puff inhalation Q4HP PRN 02/12/22 03/05/22 Rx aerosol inhaler Shortness Of Breath #8.5 grams doxycycline hyclate 100 mg tablet 100 mg PO BID 5 days #10 tabs 03/02/22 03/05/22 Rx ipratropium 0.5 mg-albuterol 3 mg 3 ml inhalation Q6H PRN wheezing 03/02/22 03/05/22 Rx (2.5 mg base)/3 mL nebulization #90 mL soln prednisone 50 mg tablet 50 mg PO DAILY 5 days #5 tabs 03/02/22 03/05/22 Rx New Prescriptions to Start Prescriptions: Allergies Allergy/AdvReac Type Severity Reaction Status Date / Time aspirin [ASPIRIN] Allergy Mild Verified 02/12/22 15:25 codeine [CODEINE] Allergy Mild Verified 02/12/22 15:25 ibuprofen [IBUPROFEN] Allergy Unknown Verified 02/12/22 15:25 acetaminophen [From Tylenol] Allergy Verified 02/12/22 15:25 tramadol Allergy Verified 02/12/22 15:25 Exam Data for Last 24 hours Vital signs and Labs for Last 24 Hours: Pulse Resp BP Pulse Ox 143 H 16 173/105 H 99 03/05/22 02:07 03/05/22 02:07 03/05/22 02:07 03/05/22 02:07 Laboratory Results - last 24 hr 03/05/22 02:21: Specimen Source Right radial, O2 % 100, ABG pH 7.12 L*, ABG pCO2 118.8 H, ABG pO2 183.3 H, ABG HCO3 37.8 H, ABG Total CO2 41.5 H, ABG O2 Saturation 99, ABG Base Excess 8.5 H, Gerard Test Y I & O for Last 24 hours: Intake & Output 03/02/22 03/03/22 03/04/22 03/05/22 23:
--- NOTE | 2022-03-05 03:38 | PC.NURSE ---
RAD at for CXR
[2022-03-05 03:39] LABS: Allen's Test Y; Oxygen 30 %; Vent Rate 22
[2022-03-05 03:40] LABS: ABG PCO2 78.4 mmhg (35.0-45.0); Source Right Radial
[2022-03-05 03:53] LABS: Coronavirus 19, PCR Not Detected (NotDetected); Influenza B, PCR Not Detected (NotDetected)
[2022-03-05 04:21] LABS: Basophils # 0.1 K/mm3 (0-0.2); Basophils % 1.1 % (0.1-2.0); Eosinophils % 0.1 % (0.1-12.0); Hematocrit 49.3 % (42.0-52.0); Hemoglobin 15.5 g/dL (14.1-18.0); Lymphocytes # 0.3 K/mm3 (0.7-4.5); Lymphocytes % 2.9 % (10-50); Mean Corpuscular HGB Conc 31.4 g/dL (31.8-35.4); Mean Corpuscular Hemoglobin 29.1 pg (27.0-31.2); Mean Corpuscular Volume 92.7 fl (80-94); Mean Platelet Volume 9.1 fl (7.4-10.4); Monocytes # 0.8 K/mm3 (0.1-1.0); Monocytes % 8.1 % (1.7-9.3); Neutrophils # 8.7 K/mm3 (1.8-7.8); Neutrophils % 87.9 % (37.0-80.0); Platelet Count 213 K/mm3 (142-424); Red Blood Count 5.32 M/mm3 (4.60-6.20); Red Cell Distribution Width 14.1 % (11.5-17.5); White Blood Count 9.9 K/mm3 (4.8-10.8)
[2022-03-05 04:27] LABS: MANUAL DIFFERENTIAL MANUAL DIFFERENTIAL (MANUAL DIFF)
[2022-03-05 04:29] LABS: Influenza A, PCR Detected (NotDetected)
--- NOTE | 2022-03-05 04:32 | PC.NURSE ---
Pt provided with ice chips after approval from hospitalist
[2022-03-05 04:35] LABS: Chloride 92 mmol/L (98-107); Potassium 4.7 mmoL/L (3.5-5.1); Sodium 144 mmol/L (136-145)
[2022-03-05 04:38] LABS: Alanine Aminotransferase 20 U/L (12-78); Albumin Level 4.6 g/dl (3.5-5.0); Albumin/Globulin Ratio 1.3 (1.1-1.8); Alkaline Phosphatase 82 U/L (38-126); Aspartate Amino Transferase 31 U/L (17-59); Bilirubin,Total 0.5 mg/dl (0.2-1.3); Blood Urea Nitrogen 28 mg/dl (9-20); Creatinine Clearance Estimated 126 mL/min (50-200); Estimated Glomerular Filt Rate 88 ml/min (>60); GFR (African American) 106 ML/MIN (>60); Globulin 3.6 g/dL (1.3-3.2); Lymphocytes % 5 % (10-50); Monocytes % 1 % (2-9); Neutrophils % 82 % (42-76); Platelet Estimate Normal; RBC Morphology Normal; Total Cells Counted 100; Total Protein,Serum 8.2 g/dl (6.3-8.2); Toxic Granulation 1+
[2022-03-05 04:39] LABS: Calcium 9.8 mg/dl (8.4-10.2); Glucose 111 mg/dl (74-100); Lactic Acid 1.3 mmol/L (0.7-2.1)
[2022-03-05 04:46] LABS: Anion Gap 13.7 mEq/L (5-15); Carbon Dioxide 43 mmol/L (22.0-30.0)
[2022-03-05 04:47] LABS: Procalcitonin 0.233 ng/mL (0.0-2.0)
[2022-03-05 04:50] LABS: Troponin I 0.06 ng/ml (0.00-0.034)
--- NOTE | 2022-03-05 04:58 | PC.NURSE ---
Report called to Estella Orozco RN by Gretchen Gunderson RN.
--- NOTE | 2022-03-05 05:12 | PC.NURSE ---
PT ARRIVED TO FLOOR VIA STRETCHER @ [phone]
[2022-03-05 06:59] LABS: POC Glucose,Bedside 90 (70-110)
--- NOTE | 2022-03-05 07:09 | HMH.PHAINT1 ---
Pharmacy Intervention Comments: Medication reconciliation completed via external fill history, chart review, and patient interview. Of note, doxycycline and prednisone were filled for a 5-day supply on 03/02. -Rimma Snow PharmD Candidate 2022
[2022-03-05 08:19] LABS: Troponin I 0.13 ng/ml (0.00-0.034)
[2022-03-05 10:21] LABS: ABG Base Excess 8.7 mmol/L (-2.4-2.3); ABG HCO3 33.7 mmhg (22.0-26.0); ABG Oxygen Saturation 99 % (90-100); ABG PH 7.39 mmol/L (7.35-7.45); ABG PO2 167.6 mmhg (80-100); ABG TCO2 35.5 mmhg (23-27)
[2022-03-05 10:24] LABS: Allen's Test acceptable; Oxygen 30 %; Source Right Radial; Vent Rate 22
[2022-03-05 10:26] LABS: ABG PCO2 57.6 mmhg (35.0-45.0)
[2022-03-05 10:41] LABS: Troponin I 0.17 ng/ml (0.00-0.034)
[2022-03-05 11:05] LABS: POC Glucose,Bedside 108 (70-110)
--- NOTE | 2022-03-05 11:06 | PC.NURSE ---
Pt switched from bipap to 4L NC appox 20 minutes ago. Pt tolerating well at this time. O2 saturations are 95%.
--- NOTE | 2022-03-05 11:12 | PC.NURSE ---
Pt unable to produce sputum, specimen cup at bedside
[2022-03-05 14:25] LABS: Basophils % 0.7 % (0.1-2.0); Eosinophils % 0.4 % (0.1-12.0); Hematocrit 44.1 % (42.0-52.0); Lymphocytes # 0.4 K/mm3 (0.7-4.5); Lymphocytes % 6.8 % (10-50); Mean Corpuscular HGB Conc 31.2 g/dL (31.8-35.4); Mean Corpuscular Hemoglobin 28.5 pg (27.0-31.2); Mean Corpuscular Volume 91.3 fl (80-94); Mean Platelet Volume 8.7 fl (7.4-10.4); Monocytes # 0.2 K/mm3 (0.1-1.0); Monocytes % 3.3 % (1.7-9.3); Neutrophils # 5.7 K/mm3 (1.8-7.8); Neutrophils % 88.8 % (37.0-80.0); Platelet Count 189 K/mm3 (142-424); Red Blood Count 4.83 M/mm3 (4.60-6.20); Red Cell Distribution Width 14.2 % (11.5-17.5); White Blood Count 6.4 K/mm3 (4.8-10.8)
[2022-03-05 14:27] LABS: MANUAL DIFFERENTIAL MANUAL DIFFERENTIAL (MANUAL DIFF)
[2022-03-05 14:29] LABS: Chloride 94 mmol/L (98-107); Hemoglobin 13.8 g/dL (14.1-18.0); Sodium 141 mmol/L (136-145)
[2022-03-05 14:32] LABS: Alanine Aminotransferase 19 U/L (12-78); Albumin Level 3.9 g/dl (3.5-5.0); Albumin/Globulin Ratio 1.3 (1.1-1.8); Alkaline Phosphatase 58 U/L (38-126); Aspartate Amino Transferase 29 U/L (17-59); Bilirubin,Total 0.4 mg/dl (0.2-1.3); Blood Urea Nitrogen 30 mg/dl (9-20); Creatinine Clearance Estimated 133 mL/min (50-200); Estimated Glomerular Filt Rate 118 ml/min (>60); GFR (African American) 142 ML/MIN (>60); Globulin 2.9 g/dL (1.3-3.2); Total Protein,Serum 6.8 g/dl (6.3-8.2)
[2022-03-05 14:33] LABS: Calcium 9.1 mg/dl (8.4-10.2); Glucose 146 mg/dl (74-100)
[2022-03-05 14:39] LABS: Carbon Dioxide 39 mmol/L (22.0-30.0)
[2022-03-05 14:44] LABS: Troponin I 0.14 ng/ml (0.00-0.034)
[2022-03-05 14:50] LABS: Lymphocytes % 8 % (10-50); Monocytes % 2 % (2-9); Neutrophils % 90 % (42-76); Platelet Estimate Normal; RBC Morphology Normal; Total Cells Counted 100
--- NOTE | 2022-03-05 15:59 | PC.NURSE ---
Pt is alert and oriented x4. He's rested in bed the whole shift, sleeping the majority of it. Some rhonchi and wheezes noted to lungs, he is quite diminished t/o. He's been weaned from bipap to 4L NC and has tolerated well. He's been sinus tach on telemetry, 90's-110's. He's used a urinal independently at the bedside. Appetite has been good. Has denied any complaints. Bed is locked and in the lowest position, call light is within reach.
[2022-03-06] VITALS (13 sets, daily range): BP systolic 99–121; BP diastolic 63–95; PULSE 73–93; RESP 20–24; TEMP 36.4–36.9; O2SAT 92–99; BMI 22.7
[2022-03-06 08:43] LABS: Chloride 96 mmol/L (98-107); Sodium 141 mmol/L (136-145)
[2022-03-06 08:44] LABS: Potassium 4.8 mmoL/L (3.5-5.1)
[2022-03-06 08:46] LABS: Blood Urea Nitrogen 27 mg/dl (9-20); Creatinine Clearance Estimated 147 mL/min (50-200); Estimated Glomerular Filt Rate 140 ml/min (>60); GFR (African American) 170 ML/MIN (>60)
[2022-03-06 08:47] LABS: Calcium 9.3 mg/dl (8.4-10.2); Glucose 163 mg/dl (74-100)
[2022-03-06 08:48] LABS: Anion Gap 9.8 mEq/L (5-15)
[2022-03-06 08:54] LABS: Carbon Dioxide 38 mmol/L (22.0-30.0)
[2022-03-06 10:35] LABS: VBG Base Excess 10.9 mmol/L (-2.4-2.3); VBG HCO3 34.5 mmol/L (23-30); VBG Oxygen Saturation 99.5 % (50-70); VBG PCO2 47.9 mmol/L (35-51); VBG PH 7.48 mmol/L (7.31-7.41); VBG Total CO2 35.9 mmol/L (23-27)
--- NOTE | 2022-03-06 10:57 | EXP.DC.SUM ---
General Admission date:: 03/05/22 Discharge date: 03/06/22 HPI HPI HPI: 56-year-old male with a PMH significant for chronic resp failure on 2LNC, COPD, HTN, HLD, anxiety disorder, chronic pain disorder, alcohol and tobacco use disorder who presented to the ED in resp failure requiring immediate BiPAP support. Admission requested due to severe respiratory acidosis. Patient seen on BiPAP, lethargic, without family at the bedside limting HPI/ROS. Information obtained via chart review and from ED team. Patient tachycardic and hypertensive with co2 118 on arrival. He was started on solumedrol, azithromycin, CTX, and bronchodilators in the ED. He was seen in the ED on 03/02 for similiar complaints at which time he was diagnosed with Flu A and COPD exacerbation at which time he was started on steroids, doxycycline, duo nebs, Tamiflu and discharged home.? Hospital Course Hospital Course Hospital Course: 56-year-old male with a PMH significant for chronic resp failure on 2LNC, COPD, HTN, HLD, anxiety disorder, chronic pain disorder, and tobacco use disorder who presented to the ED in resp failure requiring immediate BiPAP support. Patient was recently diagnosed with Flu A on 03/02. Responded well to BiPAP with improvement in his hypercarbia. Patient has remained at baseline compensated respiratory acidosis for over 24 hours without BiPAP support. Stable on 3 L nasal cannula (his baseline). Given improvements, meeting criteria for discharge home to continue treatment for COPD exacerbation and flu. Problems addressed during hospitalization as follows Acute on chronic resp failure with hypercarbia COPD exacerbation Flu A -On admission his initial ABG showed hypercarbia with CO2 of 118. Initiated on BiPAP with improvement. CO2 improved to the mid 50 range which appears to be his baseline given his normal pH and bicarb on CMP. Appears to have chronically compensated respiratory acidosis with metabolic alkalosis. Patient noted to be positive for flu. Continued on Tamiflu. Will complete 5-day course, prescription initiated at discharge. Also being treated for COPD exacerbation with steroids and antibiotics. Will discharge home to complete course of antibiotics and steroids for total of 5 days of steroids and 7 days of antibiotics. -Patient has established with pulmonology, has an appointment on April 02. Recommend he keep this appointment. Is in need of PFTs and a sleep study, will defer to the outpatient setting. - Continue home oxygen of 3 L. -Cultures obtained during admission, no growth at time of discharge HTN -Does not appear to be on home anti-HTN's, normalized by discharge. No new medications for blood pressure at this time. Chronic back pain -PRN N during admission. Was supposed to have pain management appointment on day of discharge, unfortunately was not able to make this appointment and was rescheduled at discharge. We will follow-up with pain management in early March as scheduled. Tobacco use -Affects all aspects of care -Counseled multiple times about the benefit of cessation. Patient has tried and failed gums and patches. Not interested in medication at this time. Continue to discuss in the primary care setting. Significantly complicates his underlying lung disease and likelihood for worsening respiratory failure. Reviewed medications at discharge. Questions answered. Stable for discharge home to continue oral therapy Exam Data for Last 24 hours Vital signs and Labs for Last 24 Hours: Temp Pulse Resp BP Pulse Ox FiO2 98.2 F 90 22 121/95 H 93 L 30 03/06/22 08:00 03/06/22 10:00 03/06/22 10:00 03/06/22 10:00 03/06/22 10:00 03/05/22 10:00 Laboratory Results - last 24 hr 03/05/22 10:54: POC Glucose 108 03/05/22 14:10: WBC 6.4 D, RBC 4.83, Hgb 13.8 L D, Hct 44.1, MCV 91.3, MCH 28.5, MCHC 31.2 L, RDW 14.2, Plt Count 189, MPV 8.7, Neut % (Auto) 88.8 H, Lymph % (Auto) 6.8 L, [place] % (Auto) 3.3, Eos % (Auto)
--- NOTE | 2022-03-06 10:58 | PC.NURSE ---
Called and rescheduled pt pain management appointment for 04/02 @ 114 r/t pt being in hospital and also flu positive
--- NOTE | 2022-03-06 11:25 | P.CONPHA_ITS ---
Pharmacy Intervention Comments: Discharge counseling completed at bedside with the patient. Discussed new medications (azithromycin, cefdinir, oseltamivir, and prednisone 20 mg), continued medications, and discontinued medications (doxycycline, and prednisone 50 mg). Explained indication for each new medication and possible side effec ts/mitigation strategies. Patient verbalized understanding and has no questions or concerns at this time. -Rimma Snow, PharmD Candidate 2022
--- NOTE | 2022-03-07 10:21 | CARE MANAGER ---
Called and spoke with Mr. Lima regarding post discharge status. Patient stated that he feels better, just continues to feel weak. Patient is aware of scheduled f/u appointments and has started his new medication. Patient had no questions or concerns at time of phone call.
[2022-03-07 18:07] LABS: Body Fluid Culture, Sterile Not indicated. (.); Legionella pneumophila Urinary Negative (Negative); Organism ID Not indicated. (.); Specimen Source Urine (.); Streptococcus pneumoniae Ag Negative (Negative)
== END 2022-03-06 14:35 | disposition home or self-care (01) | DRG 194 ==
LOC: ER 02:12 → 2ND 05:10
PROVIDERS: Nurse Practitioner Critical Care Medicine; Admitting Provider Emergency Medicine; Emergency Provider Emergency Medicine; PCP Emergency Medicine; Visit Provider Internal Medicine Adolescent Medicine
DX: J10.1 Influenza due to other identified influenza virus with other respiratory manifestations (principal); J44.1 Chronic obstructive pulmonary disease with (acute) exacerbation; J96.11 Chronic respiratory failure with hypoxia; F17.210 Nicotine dependence, cigarettes, uncomplicated; E78.5 Hyperlipidemia, unspecified; I10 Essential (primary) hypertension
CPT/HCPCS: 36415; 71045; 80048; 80053; 82803; 82962; 83605; 84145; 84484; 85007; 85025; 85651; 86140; 87040; 87070; 87077; 87186; 87205; 87899; 93005; 94640; 94660; 94761; 96365; 96367; 99284; 99291; C9803; J0456; J0696; J3475; U0003; U0005

== ENCOUNTER → 2022-04-02 07:52 | Outpatient (CLI) | payer MEDICAID, SELFPAY ==
[2022-04-02 08:40] VITALS: PULSE 95; PULSE 99
--- NOTE | 2022-04-02 09:35 | CT_ITS ---
FINAL REPORT CLINICAL HISTORY: lung cancer screening Smoker, 1.5 ppd x 45 years copd family hx of lung cancer COMPARISON: November 15, 2021 FINDINGS: Low-Dose Chest CT Axial images were obtained from the lung apex to the mid abdomen by computed tomography. Low-dose protocol was utilized. CTDI vol (mGy): 2.90 DLP (mGy-cm): 116.98 There is no axillary adenopathy. There is no hilar or mediastinal adenopathy. The heart is proper size. There are moderate to severe left coronary artery calcifications. There is no pericardial or pleural effusion. Lung window images demonstrate severe changes of emphysema with mild pulmonary scarring. There is a new 8 mm nodule in the posterior right upper lobe. There are partially improved inferior lingular opacities but with new alveolar opacities in the left upper lobe and left lower lobe most worrisome for pneumonia. Limited images of the upper abdomen demonstrates a stable 12 mm low-attenuation focus in the lateral liver, favor a cyst. IMPRESSION: New 8 mm posterior right upper lobe nodule. New alveolar opacities in the left upper lobe and left lower lobe most worrisome for pneumonia. Modifier S: Moderate to severe left coronary artery calcifications. Lung RADS category 4BS. Recommend PET-CT. Recommend [address] follow-up for new left lung opacities. Reviewed, Interpreted and Dictated by Estiven Bingham III, MD Transcribed by Marina Cardenas Authenticated and [facility]
== END ==
PROVIDERS: PCP Emergency Medicine; Visit Provider Internal Medicine Pulmonary Disease
DX: Z87.891 Personal history of nicotine dependence (principal); Z12.2 Encounter for screening for malignant neoplasm of respiratory organs
CPT/HCPCS: 71271; 94060; 94640; 94727; 94729

== ENCOUNTER → 2022-04-02 10:16 | Outpatient (POV) | payer MEDICAID, SELFPAY ==
[2022-04-02 10:47] VITALS: BP 95/79; PULSE 109; RESP 18; O2SAT 88; BMI 30.2
--- NOTE | 2022-04-02 10:53 | EXP.PAIN.SOA ---
[facility] Pain Management SOAP Note Subjective:: Patient is a pleasant 56-year-old male who presents today for follow-up. We are currently treating the patient for degenerative disc disease lumbar spine multilevels with lumbar radiculopathy symptoms, bilateral sacroiliitis. Today the patient rates his pain a 8 out of 10. Patient states his pain is all in his low back with symptoms into his bilateral hips and radiating down his legs. Patient denies any new trauma or injury. Patient denies any change location or type of pain he experiences. Patient does state that he has recently been in the hospital due to pneumonia and flu. Patient states he was a inpatient for approximately 4 days. Patient states he is feeling a little bit better from that visit however he has chronic pain. Patient is presenting today in a wheelchair and is on oxygen therapy due to COPD. Patient is currently managed with oxycodone 5 mg 3 times a day from Dr. Carr's office. Patient denies any side effects from this medication. He states this medication does help with his pain symptoms. Patient does state he has not ever done injections due to anxiety regarding having a needle around his spine. His Antwan is [id number]. It is been reviewed and appropriate. Review of Systems: General: No recent weight changes, no fever, no sleep disturbances Respiratory: No cough, no shortness of air, no recurring pulmonary infections Cardiovascular/peripheral vascular: No chest pain, no palpitations, no edema, no shortness of breath Gastrointestinal: No new onset incontinence, normal bowel movements reported Genitourinary: No new onset incontinence Musculoskeletal: Low back pain, bilateral hip pain Psychiatric: [Normal mood/affect] Neurological: [Denies weakness in extremities], [denies balance issues] Objective:: Physical Exam: General: Alert and oriented x3, no acute distress, pleasant and cooperative Lungs: Respirations even and unlabored, symmetrical chest expansion Eyes: PERRL Musculoskeletal: Flexion and extension of lumbar [spine] somewhat guarded secondary to pain, [antalgic gait noted] Neurological: Speech clear, no gross sensory deficit Assessment:: Degenerative disc disease of lumbar spine multilevels with lumbar radiculopathy symptoms, bilateral sacroiliitis, bilateral hip pain Plan:: Patient continues to experience significant pain in his low back and bilateral hips. I have discussed with the patient that he may benefit from diagnostic bilateral intra-articular hip injections however at this time the patient would like to wait. Risk and benefits were discussed with the patient. I have counseled the patient that he can call and schedule these over the phone if he chooses to at a later date. Patient will contact us for his next follow-up appointment. Patient has been instructed to contact the clinic with any concerns before the next appointment. Dr. Gilbert has reviewed this note and agrees with this plan of care. This note was dictated using voice recognition software and make contain errors or omissions. [facility] Disclaimer: The information contained in this section may have been updated after the patient was seen, as this information can be updated by other users. Medical History Chronic hypoxemic respiratory failure COPD (chronic obstructive pulmonary disease) Dyspnea on exertion Overweight (BMI 25.0-29.9) Pulmonary emphysema Screening for lung cancer Smoking greater than 30 pack years Tobacco abuse counseling Tobacco abuse disorder Tobacco use Surgical History History of colonoscopy History of repair of ACL Family History Other Alcohol abuse Cancer Coronary artery disease Diabetes Emphysema lung Social History (Updated 03/05/22 @ 05:57 by Estella Moody RN) Smoking Status: Current every day smoker tobacco type: cigarettes packs per day: 2 second hand exposure: Yes
== END ==
PROVIDERS: PCP Emergency Medicine; Visit Provider Nurse Practitioner Family
DX: M51.16 Intervertebral disc disorders with radiculopathy, lumbar region (principal); M46.1 Sacroiliitis, not elsewhere classified; M25.551 Pain in right hip; M25.552 Pain in left hip
CPT/HCPCS: 99212; G0463

== ENCOUNTER → 2022-04-02 21:25 | Outpatient (CLI) | payer MEDICAID, SELFPAY ==
[2022-04-02 19:38] LABS: Amphetamine/Metha Screen,Urine Negative ng/ml (<1000)
[2022-04-02 19:39] LABS: Barbiturates Screen,Urine Negative ng/ml (<200); Benzodiazepines Screen,Urine Positive ng/ml (<200)
[2022-04-02 19:40] LABS: Cannabinoid Screen,Urine Negative ng/ml (<50); Cocaine Screen,Urine Negative ng/ml (<300)
[2022-04-02 19:41] LABS: Methadone Screen,Urine Negative ng/ml (<300)
[2022-04-02 19:42] LABS: Opiate Screen,Urine Positive ng/ml (<300); Phencyclidine Screen,Urine Negative ng/ml (<25)
== END ==
PROVIDERS: Emergency Medicine; Visit Provider Internal Medicine Pulmonary Disease
DX: Z79.899 Other long term (current) drug therapy (principal)
CPT/HCPCS: 80305

== ENCOUNTER → 2022-06-01 15:22 | Outpatient (CLI) | payer MEDICAID, SELFPAY ==
[2022-06-01 16:51] LABS: Amphetamine/Metha Screen,Urine Negative ng/ml (<1000); Barbiturates Screen,Urine Negative ng/ml (<200); Benzodiazepines Screen,Urine Positive ng/ml (<200); Cannabinoid Screen,Urine Negative ng/ml (<50); Cocaine Screen,Urine Negative ng/ml (<300); Methadone Screen,Urine Negative ng/ml (<300); Opiate Screen,Urine Positive ng/ml (<300); Phencyclidine Screen,Urine Negative ng/ml (<25)
== END ==
PROVIDERS: PCP Emergency Medicine; Visit Provider Emergency Medicine
DX: Z79.899 Other long term (current) drug therapy (principal)
CPT/HCPCS: 80305

== ENCOUNTER → 2022-07-19 14:24 | Outpatient (CLI) | payer MEDICAID, SELFPAY ==
--- NOTE | 2022-07-19 14:25 | CT_ITS ---
FINAL REPORT TECHNIQUE: Thin section axial images were obtained from the lung apices through the upper abdomen without contrast. This study was performed with techniques to keep radiation doses as low as reasonably achievable (ALARA). Individualized dose reduction techniques using automated exposure control or adjustment of mA and/or kV according to the patient's size were employed. CLINICAL HISTORY: 3 month F/U left lung opacities COMPARISON: 04/02/2022 CT low-dose screen FINDINGS: There is no mediastinal, hilar, or axillary lymphadenopathy. There is no pleural or pericardial effusion. There is emphysema. There has been interval resolution of left lower lobe pneumonia and significant improvement in the lingular pneumonia with residual atelectasis. There is a posterior right upper lobe nodule seen on image 38 which is stable. There is a new right upper lobe nodule also seen on image 38 more anteriorly measuring 6 mm. Limited, unenhanced evaluation of the upper abdomen demonstrate stable hypodense liver lesion. There is a small right adrenal nodule, not adenoma by strict criteria but favor adenoma in absence of malignancy.. There is no acute osseous abnormality. IMPRESSION: Resolution of left lower lobe pneumonia with near complete resolution of the lingular pneumonia. New 6 mm right upper lobe nodule with stable more posterior right upper lobe nodule. Three to six-month follow-up recommended. Small right adrenal nodule, favor adenoma in the absence of malignancy. Reviewed, Interpreted and Dictated by Zhanna May MD Transcribed by Tiffanie Nickerson Authenticated and . [facility]
== END ==
PROVIDERS: PCP Emergency Medicine; Visit Provider Internal Medicine Pulmonary Disease
DX: R91.8 Other nonspecific abnormal finding of lung field (principal)
CPT/HCPCS: 71250

== ENCOUNTER → 2022-07-25 23:31 | Outpatient (CLI) | payer MEDICAID, SELFPAY ==
[2022-07-25 19:44] LABS: Amphetamine/Metha Screen,Urine Negative ng/ml (<1000)
[2022-07-25 19:45] LABS: Barbiturates Screen,Urine Negative ng/ml (<200); Benzodiazepines Screen,Urine Negative ng/ml (<200)
[2022-07-25 19:47] LABS: Cannabinoid Screen,Urine Negative ng/ml (<50); Cocaine Screen,Urine Negative ng/ml (<300)
[2022-07-25 19:48] LABS: Methadone Screen,Urine Negative ng/ml (<300)
[2022-07-25 19:50] LABS: Opiate Screen,Urine Negative ng/ml (<300); Phencyclidine Screen,Urine Negative ng/ml (<25)
== END ==
PROVIDERS: PCP Emergency Medicine; Visit Provider Emergency Medicine
DX: Z79.899 Other long term (current) drug therapy (principal)
CPT/HCPCS: 80305

== ENCOUNTER → 2022-10-16 14:13 | Outpatient (CLI) | payer MEDICAID, SELFPAY ==
[2022-10-16 13:36] LABS: Amphetamine/Metha Screen,Urine Negative ng/ml (<1000)
[2022-10-16 13:37] LABS: Barbiturates Screen,Urine Negative ng/ml (<200); Benzodiazepines Screen,Urine Positive ng/ml (<200)
[2022-10-16 13:38] LABS: Cannabinoid Screen,Urine Negative ng/ml (<50); Cocaine Screen,Urine Negative ng/ml (<300)
[2022-10-16 13:39] LABS: Methadone Screen,Urine Negative ng/ml (<300)
[2022-10-16 13:40] LABS: Opiate Screen,Urine Positive ng/ml (<300)
[2022-10-16 13:42] LABS: Phencyclidine Screen,Urine Negative ng/ml (<25)
== END ==
PROVIDERS: PCP Emergency Medicine; Visit Provider Emergency Medicine
DX: Z79.899 Other long term (current) drug therapy (principal)
CPT/HCPCS: 80305

== ENCOUNTER → 2022-10-31 08:04 | Outpatient (CLI) | payer MEDICAID, SELFPAY | PROVIDERS: PCP Emergency Medicine; Visit Provider Nurse Practitioner Family | DX: R06.00 Dyspnea, unspecified (principal); I10 Essential (primary) hypertension; E78.5 Hyperlipidemia, unspecified; R94.31 Abnormal electrocardiogram [ECG] [EKG]; Z72.0 Tobacco use | CPT/HCPCS: 93306 ==

== ENCOUNTER → 2022-11-12 11:21 | Outpatient (POV) | payer MEDICAID, SELFPAY ==
[2022-11-12 11:37] VITALS: BP 115/78; PULSE 107; RESP 24; O2SAT 88; BMI 26.9
--- NOTE | 2022-11-12 11:45 | EXP.PAIN.SOA ---
[facility] Pain Management SOAP Note Subjective:: Patient is a pleasant 57-year-old male who presents today for follow-up. We are currently treating the patient for degenerative disc disease of lumbar spine multilevels with lumbar radiculopathy symptoms, bilateral sacroiliitis, bilateral hip pain. Today he rates his pain an 8 out of 10. Patient denies any new trauma or injury. He does state that he continues to have bilateral hip pain and describes it as an aching, throbbing sensation that is worse with increased activity. He does state the pain interferes with his ability perform activities of daily living such as cooking and cleaning. Patient does state that he has anxiety related to needles however at our last visit we did talk about bilateral hip injections and at that time he wanted to wait. He would like to proceed forward with this option. He is in a wheelchair for help with ambulation and on continuous oxygen therapy due to COPD. He is currently managed with oxycodone 5 mg 4 times a day and alprazolam 0.5 mg 3 times a day from Dr. Carr's office. Patient denies any side effects from this medication. His Antwan is [id number]. Its been reviewed and appropriate. Review of Systems: General: No recent weight changes, no fever, no sleep disturbances Respiratory: No cough, no shortness of air, no recurring pulmonary infections Cardiovascular/peripheral vascular: No chest pain, no palpitations, no edema, no shortness of breath Gastrointestinal: No new onset incontinence, normal bowel movements reported Genitourinary: No new onset incontinence Musculoskeletal: Bilateral hip pain, leg pain Psychiatric: [Normal mood/affect] Neurological: [Denies weakness in extremities], [denies balance issues] Objective:: Physical Exam: General: Alert and oriented x3, no acute distress, pleasant and cooperative Lungs: Respirations even and unlabored, symmetrical chest expansion Eyes: PERRL Musculoskeletal: Flexion and extension of bilateral hips somewhat guarded secondary to pain Neurological: Speech clear, no gross sensory deficit ORT score updated with moderate risk Family history of alcohol abuse and personal history of alcohol abuse Oswestry index score of 40 Assessment:: Degenerative disc disease of lumbar spine multilevels with lumbar radiculopathy symptoms, bilateral sacroiliitis, bilateral hip pain Plan:: Patient is experiencing significant pain in his bilateral hips with limited range of motion. I have discussed with the patient that he may benefit from bilateral hip intra-articular injections. Risk and benefits were discussed with the patient and he would like to proceed forward with this plan of care. Patient will be scheduled for bilateral hip intra-articular injections. Patient has been instructed to contact the clinic with any concerns before the next appointment. Dr. Gilbert has reviewed this note and agrees with this plan of care. This note was dictated using voice recognition software and make contain errors or omissions. [facility] Disclaimer: The information contained in this section may have been updated after the patient was seen, as this information can be updated by other users. Medical History Abnormal electrocardiogram [ECG] [EKG] Chronic hypoxemic respiratory failure COPD (chronic obstructive pulmonary disease) Dyspnea Dyspnea on exertion Overweight (BMI 25.0-29.9) Pseudomonal pneumonia Pulmonary emphysema Screening for lung cancer Smoking greater than 30 pack years Tobacco abuse counseling Tobacco abuse disorder Tobacco use Surgical History History of colonoscopy History of repair of ACL Family History Other Alcohol abuse Cancer Coronary artery disease Diabetes Emphysema lung Social History Smoking Status: Current every day smoker tobacco type: cigarettes packs p
== END ==
PROVIDERS: PCP Emergency Medicine; Visit Provider Nurse Practitioner Family
DX: M51.16 Intervertebral disc disorders with radiculopathy, lumbar region (principal); M46.1 Sacroiliitis, not elsewhere classified; M25.551 Pain in right hip; M25.552 Pain in left hip
CPT/HCPCS: 99212; G0463

== ENCOUNTER → 2022-11-13 12:59 | Outpatient (CLI) | payer MEDICAID, SELFPAY ==
[2022-11-13 21:18] LABS: Benzodiazepines Screen,Urine Positive ng/ml (<200)
[2022-11-13 21:19] LABS: Barbiturates Screen,Urine Negative ng/ml (<200); Cannabinoid Screen,Urine Negative ng/ml (<50)
[2022-11-13 21:21] LABS: Cocaine Screen,Urine Negative ng/ml (<300); Opiate Screen,Urine Negative ng/ml (<300)
[2022-11-13 21:22] LABS: Phencyclidine Screen,Urine Negative ng/ml (<25)
[2022-11-13 21:27] LABS: Amphetamine/Metha Screen,Urine Negative ng/ml (<1000); Methadone Screen,Urine Negative ng/ml (<300)
== END ==
PROVIDERS: PCP Emergency Medicine; Visit Provider Physician Assistant
DX: F41.9 Anxiety disorder, unspecified (principal)
CPT/HCPCS: 80305

== ENCOUNTER → 2022-11-23 12:04 | Outpatient (CLI) | payer MEDICAID, SELFPAY ==
--- NOTE | 2022-11-23 12:05 | CA_ITS ---
APPROVED REPORT Exam: Pharmacologic Technologist: Radha Ha, Ht: 5 ft 11 in Wt: 194 lbs BSA: 2.08 m2 HR: 93 bpm BP: 141/76 mmHg Rhythm: NSR Medical History Medications: Alprazolam,,,,, Atorvastatin,,,,, Albuterol,,,,, OxYCODONE,,,,, Vitamin D2,,,,, Trelegy Ellipta,,,,, Stress Test Details Test: LEXISCAN Reason for pharmacologic stress test: physical limitation. HR Resting HR: 87 bpm Max Heart Rate (APMHR): 165 bpm Max HR Achieved: 116 bpm Target HR (85% APMHR): 140 bpm % of APMHR: 70 Recovery HR: 97 bpm BP Resting BP: 141.0/76.0 mmHg Max BP: 170.0/86.0 mmHg Recovery BP: 130.0/80.0 mmHg ECG Resting ECG: NSR, rightward axis Stress ECG: No change Arrhythmia: None Clinical Exercise duration: 04:00 min Highest Stage Achieved: Stress ECG Conclusion Symptoms: SOA, No CP. Arrhythmias/Ectopy: None ST-T Changes: No signifcant changes. Conclusion: Unremarkable Lexiscan stress. Myoview images reported separately. Test Summary REST . . . . . . . Resting REST 03:25 . . 87 . 141/ 76 . . Stage 1 01:00 . . 109 . . . . Stage 2 01:00 . . 112 . 170/ 86 . . Stage 3 01:00 . . 106 . . . . Stage 4 01:00 . . 105 . . . Stop exercise at 04:00 RECOVERY 01:00 . . 103 . . . . RECOVERY 02:00 . . 98 . 141/ 78 . . RECOVERY 03:00 . . 96 . 130/ 80 . . RECOVERY 03:21 . . 101 . 130/ 80 . . Electronically signed by : Hawa Dickey, 11/25/2022 18:59:21
--- NOTE | 2022-11-23 12:05 | NM_ITS ---
APPROVED REPORT Exam: Nuclear Stress Test Indication: Chest pain Patient Location: Outpatient Stress Tech: Radha Molina [place] Tech:NEETU Veronica, RT (R)(N) Ht: 5 ft 11 in Wt: 194 lbs HR: 93 bpm BP: 141/76 mmHg BSA: 2.08 m2 Rhythm: NSR BMI: 27.0 History: Chest pain Procedure: Patient received 0.4 mg of intravenous Lexiscan, resting heart rate 87 bpm, resting blood pressure 141/76 mmHg, with Lexiscan maximum heart rate achieved was 116 bpm which is % of the maximum predicted heart rate and blood pressure was 170/86 mmHg. Dyspnea. No chest pain. The patient could not lie on his abdomen for prone stress imaging Cardiac Stress and Resting SPECT Images: Cardiac Stress and Resting SPECT images were obtained using technetium 99m Myoview 31.3 mCi stress and 10.1 mCi at rest. The patient could not lie on his abdomen. Therefore, prone stress imaging could not be performed. This may affect the diagnostic interpretation of the study findings. Raw images demonstrate possible RV dilation. Resting and stress imaging in supine position demonstrate a medium sized, moderate, partially reversible perfusion defect in the basal inferior and inferoseptal LV wall. There is increase in transient ischemic dilatation ratio (TID 1.26), suggestive of possible multivessel disease or balanced ischemia. Gated imaging demonstrates normal global LV systolic function. There is mild hypokinesis in the inferior LV wall. LVEF is calculated at 58%. Conclusion: The patient could not lie on his abdomen. Therefore, prone stress imaging could not be performed. This may affect the diagnostic interpretation of the study findings. Raw images demonstrate possible RV dilation. Medium sized, moderate, partially reversible perfusion defect in the basal inferior and inferoseptal LV wall. Findings are suggestive of partial reversible ischemia. There is increase in transient ischemic dilatation ratio (TID 1.26), suggestive of possible multivessel disease or balanced ischemia. Gated imaging demonstrates normal global LV systolic function. There is mild hypokinesis in the inferior LV wall. LVEF is calculated at 58%. Electronically signed by : Hawa Dickey, 11/27/2022 20:00:05
== END ==
PROVIDERS: PCP Emergency Medicine; Referring Provider Nurse Practitioner Family; Visit Provider Nurse Practitioner Family
DX: R06.00 Dyspnea, unspecified (principal); I10 Essential (primary) hypertension; E78.5 Hyperlipidemia, unspecified; R94.31 Abnormal electrocardiogram [ECG] [EKG]; Z72.0 Tobacco use
CPT/HCPCS: 78452; 93017; A9502; J2785

== ENCOUNTER 2022-12-04 13:55 | Day surgery (SDC) | payer MEDICAID, SELFPAY ==
[2022-12-04 14:05] VITALS: BP 123/82; PULSE 84; RESP 18; TEMP 36.8; O2SAT 87; BMI 24.4
--- NOTE | 2022-12-04 14:24 | EXP.PAIN.PRO ---
Procedure Date: 12/04/22 Time: 14:30 Anesthesiologist:: Faheem Garber CRNA Complications:: None Pre-procedure Diagnosis:: Arthritis left hip. Chronic left hip pain. Post-procedure Diagnosis:: Same. Indications for Procedure:: Patient is a very pleasant 57-year-old male that comes our clinic today for left intra-articular hip injection. Patient rates his pain in the left hip 7/10. He describes left hip pain as constant, dull, aching. Pain increases significantly with ambulation. Pain increases significantly with transitioning from sitting to standing. Procedure Details:: Details of the procedure were explained to the patient. The patient was taken to procedure room placed in the supine position. The area over the left hip was cleaned using chlorhexidine as a cleansing solution. Using fluoroscopy guidance a 3 and half inch 22-gauge spinal needle was used to access the left hip joint without difficulty. After negative aspiration 3 cc of 1% lidocaine +3 cc of 0.25% Marcaine and 40 mg of Depo-Medrol was injected. Needle was withdrawn. Band-Aid applied. Patient tolerated procedure without difficulty. There are no complications. Plan and Disposition:: Patient was discharged without incident.
[2022-12-04 14:25] VITALS: BP 127/74; PULSE 100; RESP 18; O2SAT 87
[2022-12-04 14:26] VITALS: BP 160/90; PULSE 102; RESP 21; O2SAT 89
[2022-12-04 14:27] VITALS: BP 160/90; PULSE 102; RESP 21; O2SAT 89
== END 2022-12-04 14:25 | disposition home or self-care (01) ==
PROVIDERS: PCP Internal Medicine; Visit Provider Nurse Anesthetist, Certified Registered
DX: M16.12 Unilateral primary osteoarthritis, left hip (principal); M25.552 Pain in left hip; G89.29 Other chronic pain
CPT/HCPCS: 20610; 77002; J1040

== ENCOUNTER → 2022-12-20 13:50 | Outpatient (POV) | payer MEDICAID, SELFPAY ==
[2022-12-19 14:30] VITALS: BMI 24.3
--- NOTE | 2022-12-20 14:07 | EXP.PAIN.SOA ---
[facility] Pain Management SOAP Note Subjective:: Patient is a pleasant 57-year-old male who presents today for follow-up of left intra-articular hip injection on 12/04/2022. We are currently treating the patient for degenerative disc disease of lumbar spine with lumbar radiculopathy symptoms, bilateral sacroiliitis, bilateral hip pain. Today he rates his pain a 5 out of 10. Patient denies any new trauma or injury. Patient denies any change location or type of pain he experiences. Patient does state that he had 0 relief following this injection and now he even has a little tenderness in the area where the injection went into. Patient does state that he laid around in bed for 3 days after the injection due to worsening pain. Patient does have a longstanding history of COPD and is on continuous oxygen. He does use a wheelchair for help with ambulation. Patient is currently managed with oxycodone 5 mg 4 times a day, alprazolam 0.5 mg 3 times a day from Dr. Carr's office. He denies any side effects from this medication. He does state it at least helps take the edge off of his symptoms. His Antwan is [id number]. Its been reviewed and appropriate. Review of Systems: General: No recent weight changes, no fever, no sleep disturbances Respiratory: No cough, no shortness of air, no recurring pulmonary infections Cardiovascular/peripheral vascular: No chest pain, no palpitations, no edema, no shortness of breath Gastrointestinal: No new onset incontinence, normal bowel movements reported Genitourinary: No new onset incontinence Musculoskeletal: Low back pain, left hip pain Psychiatric: [Normal mood/affect] Neurological: [Denies weakness in extremities], [denies balance issues] Objective:: Physical Exam: General: Alert and oriented x3, no acute distress, pleasant and cooperative Lungs: Respirations even and unlabored, symmetrical chest expansion Eyes: PERRL Musculoskeletal: Flexion and extension of lumbar [spine] somewhat guarded secondary to pain, [antalgic gait noted] Neurological: Speech clear, no gross sensory deficit Assessment:: Degenerative disc disease of lumbar spine with lumbar radiculopathy symptoms, bilateral sacroiliitis, bilateral hip pain Plan:: Patient continues to have worsening pain in his low back and into his left hip and left leg. I have discussed with the patient that he may benefit from a left transforaminal epidural steroid injection L4-L5 and L5-S1. Risk and benefits were explained to the patient however he would like to wait at this time. I have counseled the patient that he can call and schedule this injection over the phone at a later date if he would like. Patient will call our office as needed for his next follow-up appointment. Patient has been instructed to contact the clinic with any concerns before the next appointment. Dr. Gilbert has reviewed this note and agrees with this plan of care. This note was dictated using voice recognition software and make contain errors or omissions. [facility] Disclaimer: The information contained in this section may have been updated after the patient was seen, as this information can be updated by other users. Medical History Abnormal electrocardiogram [ECG] [EKG] Chronic hypoxemic respiratory failure COPD (chronic obstructive pulmonary disease) Dyspnea Dyspnea on exertion Overweight (BMI 25.0-29.9) Pseudomonal pneumonia Pulmonary emphysema Screening for lung cancer Smoking greater than 30 pack years Tobacco abuse counseling Tobacco abuse disorder Tobacco use Surgical History History of colonoscopy History of repair of ACL Family History Other Alcohol abuse Cancer Coronary artery disease Diabetes Emphysema lung Social History Smoking Status: Current every day smoker tobacco type: cigarettes packs per day: 2 s
== END ==
PROVIDERS: PCP Emergency Medicine; Visit Provider Nurse Practitioner Family
DX: M51.16 Intervertebral disc disorders with radiculopathy, lumbar region (principal); M46.1 Sacroiliitis, not elsewhere classified; M25.551 Pain in right hip; M25.552 Pain in left hip
CPT/HCPCS: 99212; G0463

== ENCOUNTER → 2023-01-01 23:59 | Outpatient (CLI) | payer MEDICAID, SELFPAY ==
[2023-01-01 18:31] LABS: Coronavirus 19, PCR Not Detected (NotDetected); Influenza A, PCR Not Detected (NotDetected); Influenza B, PCR Not Detected (NotDetected)
== END ==
PROVIDERS: PCP Emergency Medicine; Visit Provider Emergency Medicine
DX: R06.02 Shortness of breath (principal); R05.9 Cough, unspecified
CPT/HCPCS: 87636

== ENCOUNTER 2023-01-10 06:55 | Day surgery (SDC) | payer MEDICAID, SELFPAY ==
[2023-01-10] VITALS (12 sets, daily range): BP systolic 99–159; BP diastolic 64–100; PULSE 75–101; RESP 17–18; O2SAT 95–98; BMI 26.6
--- NOTE | 2023-01-10 07:17 | IR_ITS ---
APPROVED REPORT Patient Location: Outpatient Entry Level Machine Operator: NEETU Zuluaga RT (R) PROCEDURES Left heart catheterization Left ventriculogram Selective coronary angiogram Drug-eluting stent deployment to the mid and distal dominant right coronary INDICATION Coronary artery disease, Abnormal Myoview inferoseptal ischemia, Angina pectoris Informed consent was obtained prior to the procedure. COMPLICATIONS NONE Estimated Blood Loss: LESS THAN 10 ML TECHNIQUE One percent lidocaine used to anesthetize the right anterior aspect of the wrist. The right radial artery was accessed via the Seldinger technique. A 6 Serbian sheath was placed in the right radial artery. 2.5 mg of Verapamil, 800 mcg of nitroglycerin, 1mg Lidocaine and 5000 U Heparin were given through the arterial sheath. The papa catheter was also used to perform left heart catheterization, left ventriculogram and selective coronary angiogram. At the end the diagnostic angiogram therapeutic heparin was administered given therapeutic ACT and the guide catheter was placed in right coronary artery followed by Choice PT extra-support wire down the right coronary artery. A 3.5 x 38 mm [employer] frontier stent was deployed at 16 sai reducing the hemodynamically severe stenosis to 0%. IRAIS-3 flow was present before and after the procedure. Within the procedure the apparatus was removed the sheath was removed and hemostasis was achieved using TR banding patient was transferred to the postop holding in stable condition ANGIOGRAPHIC RESULTS The left main artery Normal The left anterior descending artery Has mild proximal mid vessel 10% luminal irregularities The circumflex artery Nondominant normal The right coronary artery Normal with 40% proximal stenoses and a mid vessel 60 to 70% stenosis The CRAWFORD ventriculogram reveals 65% The left ventricular end-diastolic pressure Elevated at 20 to 25 mmHg IMPRESSION Hemodynamically severe disease in the right coronary artery with successful stenting reducing the hemodynamically severe stenosis to 0% with 1 drug-eluting stent Normal ejection fraction Elevated LVEDP PLAN 1. Dual antiplatelet therapy 2. LDL less than 55 to be achieved with high intensity statin 3. Avoidance of tobacco products 4. Recommend sleep study if not already obtained 5. Recommend referral to for pulmonary disease 6. Treatment of diastolic dysfunction Electronically signed by : Gurwinder Le MD 01/10/2023 10:00:47
[2023-01-10 08:15] LABS: Basophils # 0.1 K/mm3 (0-0.2); Basophils % 0.6 % (0.1-2.0); Eosinophils # 0.2 K/mm3 (0.0-0.4); Eosinophils % 2.2 % (0.1-12.0); Hematocrit 47.8 % (42.0-52.0); Hemoglobin 14.6 g/dL (14.1-18.0); Lymphocytes # 3.1 K/mm3 (0.7-4.5); Lymphocytes % 29.8 % (10-50); Mean Corpuscular HGB Conc 30.5 g/dL (31.8-35.4); Mean Corpuscular Hemoglobin 29.4 pg (27.0-31.2); Mean Corpuscular Volume 96.5 fl (80-94); Mean Platelet Volume 8.3 fl (7.4-10.4); Monocytes # 0.6 K/mm3 (0.1-1.0); Monocytes % 5.4 % (1.7-9.3); Neutrophils # 6.4 K/mm3 (1.8-7.8); Platelet Count 224 K/mm3 (142-424); Red Blood Count 4.95 M/mm3 (4.60-6.20); Red Cell Distribution Width 13.1 % (11.5-17.5); White Blood Count 10.4 K/mm3 (4.8-10.8)
[2023-01-10 08:18] LABS: Blood Urea Nitrogen 15 mg/dl (9-20); Calcium 8.7 mg/dl (8.4-10.2); Chloride 98 mmol/L (98-107); Creatinine Clearance Estimated 114 mL/min (50-200); Estimated Glomerular Filt Rate 88 ml/min (>60); GFR (African American) 106 ML/MIN (>60); Glucose 105 mg/dl (74-100); Potassium 3.8 mmoL/L (3.5-5.1); Sodium 146 mmol/L (136-145)
[2023-01-10 08:25] LABS: Anion Gap 13.8 mEq/L (5-15); Carbon Dioxide 38 mmol/L (22.0-30.0)
[2023-01-10 13:28] LABS: CATHL Activated Clotting Time 339 SEC (74-125)
--- NOTE | 2023-01-10 14:28 | HMH.PHACL ---
[facility]iller Operator Discharge Med Electrical Engineering Intern: Ancelmo Lima has received discharge medication counseling on the following medications: EFFIENT 10 MG DAILY ASPIRIN ER 81 MG DAILY ATORVASTIN 40 MG HS METOPROLOL SUCCINATE 6.25 MG DAILY
== END 2023-01-10 13:47 | disposition home or self-care (01) ==
PROVIDERS: PCP Emergency Medicine; Visit Provider Internal Medicine
DX: R94.39 Abnormal result of other cardiovascular function study (principal); E78.5 Hyperlipidemia, unspecified; I10 Essential (primary) hypertension; I25.118 Atherosclerotic heart disease of native coronary artery with other forms of angina pectoris; R06.00 Dyspnea, unspecified; R94.31 Abnormal electrocardiogram [ECG] [EKG]; F17.210 Nicotine dependence, cigarettes, uncomplicated; Z79.899 Other long term (current) drug therapy; J96.11 Chronic respiratory failure with hypoxia
CPT/HCPCS: 80048; 85025; 85347; 92928; 93458; 99152; C1725; C1769; C1876; C9600; J1644; Q9967

== ENCOUNTER → 2023-02-05 16:59 | Outpatient (CLI) | payer MEDICAID, SELFPAY | PROVIDERS: PCP Emergency Medicine; Visit Provider Physician Assistant | DX: R91.8 Other nonspecific abnormal finding of lung field (principal); B96.89 Other specified bacterial agents as the cause of diseases classified elsewhere | CPT/HCPCS: 87070; 87205 ==

== ENCOUNTER 2023-04-24 07:19 | Outpatient (CLI) | payer MEDICAID, SELFPAY ==
[2023-04-24 22:26] LABS: Cannabinoid Screen,Urine Negative ng/ml (<50); Cocaine Screen,Urine Negative ng/ml (<300)
[2023-04-24 22:27] LABS: Amphetamine/Metha Screen,Urine Negative ng/ml (<1000)
[2023-04-24 22:28] LABS: Opiate Screen,Urine Positive ng/ml (<300)
[2023-04-24 22:29] LABS: Phencyclidine Screen,Urine Negative ng/ml (<25)
[2023-04-24 23:04] LABS: Barbiturates Screen,Urine Negative ng/ml (<200); Benzodiazepines Screen,Urine Positive ng/ml (<200); Methadone Screen,Urine Negative ng/ml (<300)
[2023-04-30 06:04] LABS: Alprazolam Positive (.); Benzodiazepines Positive ng/mL (Cutoff=100); Clonazepam Negative (Cutoff=100); Codeine Negative (Cutoff=100); Flurazepam Negative (Cutoff=100); Hydrocodone Positive (.); Hydromorphone Positive (.); Lorazepam Negative (Cutoff=100); Midazolam Negative (Cutoff=100); Morphine Negative (Cutoff=100); Opiates Positive (.); Oxycodone (GC/MS) 1608 ng/mL (Cutoff=100); Oxymorphone (GC/MS) >3000 ng/mL (Cutoff=100); Temazepam Negative (Cutoff=100); Triazolam Negative (Cutoff=100)
== END 2023-04-24 23:59 ==
LOC: LAB.DROPOF 04-25 07:20
PROVIDERS: PCP Family Medicine; Visit Provider Family Medicine
DX: Z79.899 Other long term (current) drug therapy (principal)
CPT/HCPCS: 80307; 80346; 80361; 80365; G0480

== ENCOUNTER 2023-05-01 18:32 | Outpatient (CLI) | payer MEDICAID, SELFPAY ==
[2023-05-01 21:58] LABS: Amphetamine/Metha Screen,Urine Negative ng/ml (<1000); Barbiturates Screen,Urine Negative ng/ml (<200); Benzodiazepines Screen,Urine Positive ng/ml (<200); Cannabinoid Screen,Urine Negative ng/ml (<50); Cocaine Screen,Urine Negative ng/ml (<300); Methadone Screen,Urine Negative ng/ml (<300); Opiate Screen,Urine Negative ng/ml (<300); Phencyclidine Screen,Urine Negative ng/ml (<25)
[2023-05-07 15:11] LABS: Opiates Negative (Cutoff=100); Oxycodone (GC/MS) 2215 ng/mL (Cutoff=100); Oxymorphone (GC/MS) 1924 ng/mL (Cutoff=100)
== END 2023-05-01 23:59 ==
LOC: LAB.DROPOF 18:33
PROVIDERS: Visit Provider Family Medicine
DX: Z79.899 Other long term (current) drug therapy (principal)
CPT/HCPCS: 80307; 80361; 80365; G0480

== ENCOUNTER 2023-07-01 13:52 | Outpatient (CLI) | payer MEDICAID, SELFPAY ==
--- NOTE | 2023-07-01 13:53 | CT_ITS ---
FINAL REPORT CLINICAL HISTORY: Right lung nodules, follow-up COMPARISON: 07/19/2022 FINDINGS: CT CHEST WITHOUT CONTRAST TECHNIQUE: Axial images through the chest were performed by computed tomography without contrast. This study was performed with techniques to keep radiation doses as low as reasonably achievable, (ALARA). Individualized dose reduction techniques using automated exposure control or adjustment of mA and/or kV according to the patient's size were employed. FINDINGS: There is no axillary adenopathy. There is no hilar or mediastinal adenopathy. The heart size is normal. There is no pericardial or pleural effusion. A posterior right upper lobe nodule is stable at 7 mm and well-seen on image 34. Anterior to this is a 6 mm nodule which is stable seen on image 35. There is a new, lateral right lower lobe nodule on image 60 measures 4 mm. A new, 5 mm right lower lobe nodule is well-seen on image 67. There is a new 2 mm lateral right lower lobe nodule seen on image 60. Limited images of the upper abdomen demonstrate a stable hypodense liver lesion measuring 14 mm. There is a small low-attenuation focus in the right adrenal gland likely an adenoma. There is a less than 3 mm right renal cyst. IMPRESSION: Stable right upper lobe mass nodules. New, small right lower lobe nodules. 6-month follow-up chest CT is recommended. Reviewed, Interpreted and Dictated by Estiven Bingham III, MD Transcribed by Nikki Sheriff Authenticated and [facility]
== END 2023-07-01 23:59 ==
LOC: RAD 13:52
PROVIDERS: PCP Internal Medicine; Visit Provider Internal Medicine Pulmonary Disease
DX: R91.8 Other nonspecific abnormal finding of lung field (principal)
CPT/HCPCS: 71250

== ENCOUNTER 2023-07-03 15:10 | Emergency (ER) | payer MEDICAID, SELFPAY ==
[2023-07-03] VITALS (7 sets, daily range): BP systolic 112–153; BP diastolic 76–103; PULSE 83–106; RESP 13–24; TEMP 36.6–36.7; O2SAT 94–97; BMI 26.3
--- NOTE | 2023-07-03 15:16 | ECG_ITS ---
APPROVED REPORT Exam: Resting ECG HR:103 bpm ECG Measurements Heart Rate 103 AXES MI 148 P 93 QRSd 126 QRS 108 QT 339 T 69 QTc 399 Conclusion SINUS TACHYCARDIA Electronically signed by : LINNEA PLUNKETT, 07/04/2023 05:48:43
--- NOTE | 2023-07-03 15:20 | ED_ITS ---
<Statement entered by Karan Sylvester MD - 07/03/23 21:06> I was consulted by the SHANICE, and we discussed the complexity of the problems being addressed. I approved the treatment and management plan for this patient's care in the emergency department, thus performing a substantive portion of the medical decision making. Karan Sylvester MD, JOSÉ LUIS, FACEP Discharge Plan Disposition Patient Disposition: Home, Self-Care Condition: Good Prescriptions Prescriptions: New prednisone 50 mg tablet 50 mg PO DAILY 5 Days Qty: 5 0RF No Action ergocalciferol (vitamin D2) 1,250 mcg (50,000 unit) capsule 50,000 unit PO WEEKLY Qty: 10 10RF metoprolol succinate [Toprol XL] 25 mg tablet extended release 24 hr 12.5 mg PO DAILY Qty: 30 5RF Rx Instructions: take 0.5 tablet daily atorvastatin 40 mg tablet 40 mg PO HS Qty: 30 5RF aspirin [Adult Aspirin Regimen] 81 mg tablet,delayed release (DR/EC) 81 mg PO DAILY Qty: 30 2RF Trelegy Ellipta 100-62.5-25 mcg blister with device 1 inh inhalation DAILY 90 Days Qty: 90 2RF (DME) oxygen-air delivery systems Device See Rx Instructions .Route Rx Instructions: As directed levofloxacin 750 mg tablet 750 mg PO DAILY 7 Days Qty: 7 0RF alprazolam 0.5 mg tablet 0.5 mg PO TID PRN (Reason: anxiety) Qty: 90 0RF oxycodone 10 mg tablet 10 mg PO TID Qty: 90 0RF Saline Nasal 0.65 % aerosol,spray 1 spray intranasal BID PRN (Reason: dry nasal passages) Qty: 44 2RF ipratropium-albuterol 0.5 mg-3 mg(2.5 mg base)/3 mL solution for nebulization See Rx Instructions .ROUTE .COMPLEX Qty: 180 0RF Dose Instruction: INHALE THE CONTENTS OF 1 VIAL VIA NEBULIZER EVERY6 HOURS NEEDED FOR WHEEZING Rx Instructions: INHALE THE CONTENTS OF 1 VIAL VIA NEBULIZER EVERY6 HOURS NEEDED FOR WHEEZING albuterol sulfate [Ventolin HFA] 90 mcg/actuation HFA aerosol inhaler See Rx Instructions .ROUTE .COMPLEX Qty: 18 5RF Dose Instruction: INHALE 2 PUFFS BY MOUTH EVERY 4 TO 6 HOURS NEEDED FOR SHORTNESS OF BREATH SHAKE WELL Rx Instructions: INHALE 2 PUFFS BY MOUTH EVERY 4 TO 6 HOURS NEEDED FOR SHORTNESS OF BREATH SHAKE WELL prasugrel [Effient] 10 mg Tablet 10 mg PO DAILY 30 Days Qty: 30 6RF Referrals Follow up/Referrals: Phu Weber DO [Primary Care Provider] - See instructions Clinical Impressions Clinical Impression: Acute exacerbation of chronic obstructive pulmonary disease Discharge ED Provider: Karan Sylvester General Adult HPI General Chief complaint: Chest Pain Stated complaint: Sent by PARAMJIT Weber Time Seen by Provider: 07/03/23 15:13 History of Present Illness HPI narrative: Patient presents to the emergency department from his PCPs office increasing shortness of breath and chest pressure. Patient has a past medical history of COPD chronically on 2 L by nasal cannula of oxygen. Patient reports that he has been out of his Trelegy inhaler and actually just received it prior to him coming to his PCPs office for visit today. Patient reportedly was met by his PCP and before he could get out of his car sent to the ER by his PCP for evaluation due to his shortness of breath. Patient describes his chest discomfort is more like pressure especially because he feels like he cannot get air but denies fever chills hemoptysis hematochezia melena nausea vomiting diarrhea. Related Data Home Medications Medication Instructions Recorded Confirmed oxygen-air delivery systems 07/25/22 07/01/23 Previous Rx's Medication Instructions Recorded aspirin 81 mg tablet,delayed 81 mg PO DAILY #30 tabs 12/28/22 release (Adult Aspirin Regimen) atorvastatin 40 mg tablet 40 mg PO HS Cholesterol #30 tabs 12/28/22 metoprolol succinate 25 mg 12.5 mg (1/2 x 25 mg) PO DAILY #30 12/28/22 tablet,extended release 24 hr tabs (Toprol XL) ergocalciferol (vitamin D2) 1,250 50,000 unit PO WEEKLY Supplement 01/01/23 mcg (50,000 unit) capsule #10 caps prasugrel 10 mg tablet (Effient) 10 mg PO DAILY 30 days #30 tabs 01/10/23 albuterol sulfate 90 mcg/actuation See Rx Instructions .Route 03/28/23 aerosol inhaler (Ventolin HFA) .COMPLEX #18 grams sodium chloride 0.65 % nasal spray 1 spray intranasal BID PRN dry 05/01/23 aerosol (Saline Nasal) nasal passages #44 mL levofloxacin 750 mg tablet 750 mg PO DAILY 7 days #7 tabs 06/10/23 alprazolam 0.5 mg tablet 0.5 mg PO TID PRN anxiety #90 tabs 06/11/23 oxycodone 10 mg tablet 10 mg PO TID #90 tabs 06/11/23 fluticasone fur. 100 mcg-umeclid 1 inh inhalation DAILY 90 days #90 06/12/23 62.5 mcg-vilant 25 mcg ea inhalat.powder (Trelegy Ellipta) ipratropium 0.5 mg-albuterol 3 mg See Rx Instructions .Route 07/01/23 (2.5 mg base)/3 mL nebulization .COMPLEX #180 mL soln prednisone 50 mg tablet 50 mg PO DAILY 5 days #5 tabs 07/03/23 Allergies Allergy/AdvReac Type Severity Reaction Status Date / Time aspirin [ASPIRIN] Allergy Mild Verified 07/01/23 14:21 codeine [CODEINE] Allergy Mild Verified 07/01/23 14:21 ibuprofen [IBUPROFEN] Allergy Unknown Verified 07/01/23 14:21 acetaminophen [From Tylenol] Allergy Verified 07/01/23 14:21 tramadol Allergy Verified 07/01/23 14:21 [facility] Disclaimer: The information contained in this section may have been updated after the patient was seen, as this information can be updated by other users. Medical History CAD in [place] artery Pneumonia Abnormal electrocardiogram [ECG] [EKG] Dyspnea Pseudomonal pneumonia Hyperlipemia HTN (hypertension) Overweight (BMI 25.0-29.9) Pulmonary emphysema Chronic hypoxemic respiratory failure Tobacco abuse disorder Tobacco abuse counseling Screening for lung cancer Smoking greater than 30 pack years Dyspnea on exertion Tobacco use COPD (chronic obstructive pulmonary disease) Surgical History History of repair of ACL History of colonoscopy Family History Other Alcohol abuse Cancer Coronary artery disease Diabetes Emphysema lung Social History Smoking Status: Current every day smoker tobacco type: cigarettes packs per day: 2 second hand exposure: Yes alcohol intake: former substance use type: denies use current occupational status: disabled Travel in the last 8 weeks: None household members: friend(s) housing: house ROS Obtained: Yes Systems reviewed as appropriate & no additional complaints except as documented Physical Exam General General appearance: alert and in no apparent distress Head Head exam: atraumatic and normal inspection Eye Eye exam: Present normal appearance, PERRL and EOMI ENT ENT exam: Present normal exam, normal oropharynx and mucous membranes moist Neck Neck exam: Present normal inspection, full ROM and trachea midline; Absent lymphadenopathy Chest Chest inspection: Present normal inspection and symmetric chest wall rise; Absent tenderness Respiratory Respiratory exam: Present wheezes (Patient has bilateral end expiratory wheezes in all 4 walters with diminished air entry at the bases.) and accessory muscle use; Absent respiratory distress Cardiovascular Cardiovascular exam: Present tachycardia, normal heart sounds, +S1 and +S2 Abdominal Exam Abdominal exam: Present soft and normal bowel sounds; Absent tenderness, guarding or rebound Extremities Exam Extremities exam: Present normal inspection and full ROM Back Exam Back exam: Present normal inspection and full ROM Neurological Exam Neurological exam: Present alert and oriented X3 Psychiatric Psychiatric exam: Present normal affect and normal mood Skin Skin exam: Present warm, dry and normal color Medical Decision Making Medical Records Medical records reviewed: Yes I reviewed the patient's medical records. [place] Inquiry Pt receiving controlled substance: No Vital Signs: 07/03/23 15:11 07/03/23 16:00 07/03/23 16:30 Temperature 98.1 F Temperature Source Oral Pulse Rate 96 H 92 H Pulse Rate [Right] 106 H Respiratory Rate 21 13 22 Blood Pressure 133/84 131/90 Blood Pressure [Right Arm] 149/87 H Blood Pressure Mean 100 96 Blood Pressure Mean [Right Arm] 107 Blood Pressure Source [Right Arm] Automatic Cuff 02 Sat by Pulse Oximetry 97 94 L 94 L Oxygen Delivery Method Nasal Cannula Oxygen Flow Rate (LPM) 2 07/03/23 17:00 07/03/23 17:30 07/03/23 18:00 Temperature Temperature Source Pulse Rate 94 H 89 83 Pulse Rate [Right] Respiratory Rate 24 18 20 Blood Pressure 153/100 H 122/103 H 112/76 Blood Pressure [Right Arm] Blood Pressure Mean 117 107 88 Blood Pressure Mean [Right Arm] Blood Pressure Source [Right Arm] 02 Sat by Pulse Oximetry 95 95 94 L Oxygen Delivery Method Oxygen Flow Rate (LPM) Lab Data Lab results reviewed: Yes I reviewed the patient's lab results. Lab Results 07/03/23 15:23: WBC 8.2, RBC 4.70, Hgb 14.5, Hct 45.0, MCV 95.7 H, MCH 30.9, MCHC 32.2, RDW 13.0, Plt Count 210, MPV 8.5, Neut % (Auto) 70.7, Lymph % (Auto) 18.1, [place] % (Auto) 5.2, Eos % (Auto) 5.2, Baso % (Auto) 0.9, Neut # (Auto) 5.8, Lymph # (Auto) 1.5, [place] # (Auto) 0.4, Eos # (Auto) 0.4, Baso # (Auto) 0.1, Sodium 137, Potassium 4.8, Chloride 97 L, Carbon Dioxide 36 H, Anion Gap 8.8, BUN 10, Creatinine 0.90, Estimated Creat Clear 112, Estimated GFR 88, Est GFR ( Amer) 106, Glucose 105 H, Calcium 9.2, Magnesium 1.9, Troponin I 0.01, NT-Pro-B Natriuret Pep 60.6 07/03/23 15:28: VBG pH 7.31, VBG pCO2 70.3 H, VBG pO2 48.8 H, VBG HCO3 34.5 H, V BG Total CO2 36.7 H, VBG O2 Saturation 85.2 H, VBG Base Excess 8.2 H, VBG Lactic Acid 2.1 H 07/03/23 15:38: SARS-CoV-2 (PCR) Not detected, Influenza A Untype (PCR) Not detected, Influenza Type B (PCR) Not detected 07/03/23 16:58: VBG Lactic Acid 2.1 H 07/03/23 18:20: Troponin I 0.01 07/03/23 15:23 07/03/23 15:23 Orders (Tests/Meds): ED MEDICATIONS Generic Name Dose Route Start Last Admin Trade Name Freq PRN Reason Stop Dose Admin Sodium Chloride 10 ml 07/03/23 15:35 07/03/23 16:16 Sodium Chloride 0.9% 10ml Flush Syringe IV 08/02/23 15:34 10 ml NEEDED PRN Administration Maintain IV Site Discontinued Medications Generic Name Dose Route Start Last Admin Trade Name Freq PRN Reason Stop Dose Admin Albuterol/Ipratropium 3 ml 07/03/23 15:28 07/03/23 16:15 Ipratropium/Albuterol 3 Ml [facility] 07/03/23 15:29 3 ml ONCE ONE Administration Albuterol/Ipratropium 3 ml 07/03/23 18:54 07/03/23 19:00 Ipratropium/Albuterol 3 Ml [facility] 07/03/23 18:55 3 ml ONCE ONE Administration Dexamethasone Sodium Phosphate 10 mg 07/03/23 15:28 07/03/23 16:15 Dexamethasone 4mg/Ml 1ml Vial IV 07/03/23 15:29 10 mg ONCE ONE Administration ORDERS Category Date Time Status Chest XR -- portable [XR chest portable] Stat Exams 07/03/23 15:28 Completed BMP [Basic Metabolic Panel] Stat Lab 07/03/23 15:23 Completed BNP [Brain Natriuretic Peptide] Stat Lab 07/03/23 15:23 Completed CBC w/Auto Diff [Complete Blood Count Auto Diff] Stat Lab 07/03/23 15:23 Completed Lactate Venous Routine Lab 07/03/23 16:58 Completed Magnesium Stat Lab 07/03/23 15:23 Completed Rapid PCR Covid and Flu A/B Stat Lab 07/03/23 15:38 Completed Troponin I Q3H Lab 07/03/23 18:20 Completed Troponin I Q3H Lab 07/03/23 21:45 Ordered Troponin I Stat Lab 07/03/23 15:23 Completed VBG [Venous Blood Gas] Stat RT 07/03/23 15:28 Completed EKG Request [ECG Request] Stat Y 07/03/23 15:31 Ordered HEART Score History (anamnesis): Slightly suspicious ECG: Normal Age: 45-65 years Risk factors: 1-2 risk factors Troponin: </= normal limit HEART Score: 2 Medical Decision Narrative: In summary patient is a 57-year-old male who presents to the emergency department for evaluation of shortness of breath and chest pressure. Patient is normotensive tachycardic initially upon arrival, and afebrile. Physical exam is remarkable for tachypnea diminished air entry and end expiratory wheezes in all 4 walters and lung exam the remainder of his physical exam is nonfocal and unremarkable. Differential diagnosis includes COPD exacerbation versus ACS versus PE versus viral bacterial infection. Initial workup will be conducted with hematologic labs twelve-lead EKG plain film x-ray. Initial interventions include DuoNeb Toradol Tylenol Decadron. Initial workup reviewed by me is remarkable for a troponin of 0.01, VBG was 7.31 serum CO2 of 36 NT proBNP of 60.6 and negative flu and COVID. My personal interpretation of his plain film chest x-ray shows no acute disease or infiltrates. The patient was placed in observation status at 1652. Medical necessity for observational status is a detectable troponin and observation of serial troponins. The patient was provided serial reevaluations and cardiac monitoring while awaiting results. Second troponin that is negative. She will be discharged home with follow-up with her PCP patient was given a prescription for prednisone. Total time in observation was 70 minutes. Critical Care Critical Care Time Critical Care Time: No
--- NOTE | 2023-07-03 15:28 | XR_ITS ---
PROCEDURE INFORMATION: Exam: XR Chest Exam date and time: 07/03/2023 3:41 PM Age: 57 years old Clinical indication: Shortness of breath; Additional info: Copd exacerbation TECHNIQUE: Imaging protocol: Radiologic exam of the chest. Views: 1 view. COMPARISON: CT CHEST WO CON 07/01/2023 1:57 PM FINDINGS: Lungs: Emphysematous changes with a hyperlucent right upper lobe corresponding to large bullae as demonstrated on CT. Similar pattern of strandy opacities within the medial right lung base. Pleural spaces: No pleural effusion. No pneumothorax. Heart/Mediastinum: Cardiomegaly. Bones/joints: Unremarkable. IMPRESSION: Similar pattern of strandy opacities within the medial right lung base likely representing atelectasis although an underlying infectious process is difficult to exclude. Background severe emphysematous changes.
[2023-07-03 15:45] LABS: Basophils # 0.1 K/mm3 (0-0.2); Basophils % 0.9 % (0.1-2.0); Eosinophils # 0.4 K/mm3 (0.0-0.4); Eosinophils % 5.2 % (0.1-12.0); Hemoglobin 14.5 g/dL (14.1-18.0); Lymphocytes # 1.5 K/mm3 (0.7-4.5); Lymphocytes % 18.1 % (10-50); Mean Corpuscular HGB Conc 32.2 g/dL (31.8-35.4); Mean Corpuscular Hemoglobin 30.9 pg (27.0-31.2); Mean Corpuscular Volume 95.7 fl (80-94); Mean Platelet Volume 8.5 fl (7.4-10.4); Monocytes # 0.4 K/mm3 (0.1-1.0); Monocytes % 5.2 % (1.7-9.3); Neutrophils # 5.8 K/mm3 (1.8-7.8); Neutrophils % 70.7 % (37.0-80.0); Platelet Count 210 K/mm3 (142-424); White Blood Count 8.2 K/mm3 (4.8-10.8)
[2023-07-03 15:46] LABS: Chloride 97 mmol/L (98-107); Sodium 137 mmol/L (136-145)
[2023-07-03 15:47] LABS: Potassium 4.8 mmoL/L (3.5-5.1)
[2023-07-03 15:49] LABS: Blood Urea Nitrogen 10 mg/dl (9-20); Creatinine Clearance Estimated 112 mL/min (50-200); Estimated Glomerular Filt Rate 88 ml/min (>60); GFR (African American) 106 ML/MIN (>60)
[2023-07-03 15:50] LABS: Calcium 9.2 mg/dl (8.4-10.2); Glucose 105 mg/dl (74-100); Magnesium 1.9 mg/dl (1.6-2.3)
[2023-07-03 15:56] LABS: Coronavirus 19, PCR Not Detected (NotDetected); Influenza A, PCR Not Detected (NotDetected); Influenza B, PCR Not Detected (NotDetected)
[2023-07-03 15:56] LABS: Anion Gap 8.8 mEq/L (5-15); Carbon Dioxide 36 mmol/L (22.0-30.0)
[2023-07-03 15:59] LABS: NT Pro Brain Natriuretic Pep. 60.6 pg/mL (0-125)
[2023-07-03 16:03] LABS: Troponin I 0.01 ng/ml (0.00-0.034)
[2023-07-03] MEDS: IPRATROPIUM/ALBUTEROL 3 ML NEB IH ×2 (16:15→19:00)
[2023-07-03] MEDS: DEXAMETHASONE 4MG/ML 1ML VIAL 10 MG IV (16:15)
[2023-07-03] MEDS: SODIUM CHLORIDE 0.9% 10ML FLUSH SYRINGE 10 ML IV (16:16)
[2023-07-03 17:05] LABS: VBG Base Excess 8.2 mmol/L (-2.4-2.3); VBG HCO3 34.5 mmol/L (23-30); VBG Oxygen Saturation 85.2 % (50-70); VBG PCO2 70.3 mmol/L (35-51); VBG PH 7.31 mmol/L (7.31-7.41); VBG PO2 48.8 mmol/L (28-40); VBG Total CO2 36.7 mmol/L (23-27)
[2023-07-03 17:06] LABS: Lactate Venous 2.1 mmol/L (0.4-2.0)
[2023-07-03 17:06] LABS: Lactate Venous 2.1 mmol/L (0.4-2.0)
[2023-07-03 18:48] LABS: Troponin I 0.01 ng/ml (0.00-0.034)
[2023-07-03 21:05] LABS: Reflex Lactic Add Lactic Reflex
== END 2023-07-03 19:15 | disposition home or self-care (01) ==
PROVIDERS: Physician Assistant; Emergency Provider Student in an Organized Health Care Education/Training Program; PCP Internal Medicine
DX: J44.1 Chronic obstructive pulmonary disease with (acute) exacerbation (principal); R07.9 Chest pain, unspecified; I25.10 Atherosclerotic heart disease of native coronary artery without angina pectoris; E78.5 Hyperlipidemia, unspecified; I10 Essential (primary) hypertension; J96.11 Chronic respiratory failure with hypoxia; F17.210 Nicotine dependence, cigarettes, uncomplicated
CPT/HCPCS: 71045; 80048; 82803; 83605; 83735; 83880; 84484; 85025; 87636; 93005; 96374; 99285

== ENCOUNTER 2023-07-29 22:56 | Outpatient (CLI) | payer MEDICAID, SELFPAY ==
[2023-07-29 19:14] LABS: Basophils # 0.1 K/mm3 (0-0.2); Basophils % 0.8 % (0.1-2.0); Eosinophils # 0.4 K/mm3 (0.0-0.4); Eosinophils % 5.5 % (0.1-12.0); Hematocrit 45.1 % (42.0-52.0); Hemoglobin 14.3 g/dL (14.1-18.0); Lymphocytes # 1.4 K/mm3 (0.7-4.5); Lymphocytes % 21.2 % (10-50); Mean Corpuscular HGB Conc 31.8 g/dL (31.8-35.4); Mean Corpuscular Hemoglobin 30.7 pg (27.0-31.2); Mean Corpuscular Volume 96.5 fl (80-94); Mean Platelet Volume 8.7 fl (7.4-10.4); Monocytes # 0.4 K/mm3 (0.1-1.0); Monocytes % 5.7 % (1.7-9.3); Neutrophils # 4.5 K/mm3 (1.8-7.8); Neutrophils % 66.8 % (37.0-80.0); Platelet Count 211 K/mm3 (142-424); Red Blood Count 4.67 M/mm3 (4.60-6.20); Red Cell Distribution Width 13.1 % (11.5-17.5); White Blood Count 6.7 K/mm3 (4.8-10.8)
[2023-07-29 19:26] LABS: Alanine Aminotransferase 12 U/L (12-78); Albumin/Globulin Ratio 1.4 (1.1-1.8); Alkaline Phosphatase 88 U/L (38-126); Anion Gap 8.1 mEq/L (5-15); Aspartate Amino Transferase 21 U/L (17-59); Bilirubin,Total 0.8 mg/dl (0.2-1.3); Blood Urea Nitrogen 12 mg/dl (9-20); Calcium 9.3 mg/dl (8.4-10.2); Carbon Dioxide 37 mmol/L (22.0-30.0); Chloride 99 mmol/L (98-107); Chol/HDL Ratio 2.9 (1-3.5); Cholesterol 115 mg/dl (140-200); Estimated Glomerular Filt Rate 117 ml/min (>60); GFR (African American) 142 ML/MIN (>60); Globulin 2.8 g/dL (1.3-3.2); Glucose 83 mg/dl (74-100); HDL Cholesterol 39 mg/dl (40-60); Potassium 4.1 mmoL/L (3.5-5.1); Sodium 140 mmol/L (136-145); Total Protein,Serum 6.8 g/dl (6.3-8.2); Triglycerides 70 mg/dl (30-150); VLDL Cholesterol 14 mg/dL (0-40)
[2023-07-29 19:37] LABS: Direct LDL Cholesterol 58.77 mg/dL (100-129)
[2023-07-29 19:43] LABS: 25-OH Vitamin D, Total 48.4 ng/mL (30-100)
[2023-07-29 20:00] LABS: Prostate Specific Ag Screen 0.3 ng/ml (0.0-4.0); Thyroid Stimulating Hormone 0.78 uIU/mL (0.465-4.68)
[2023-07-29 20:19] LABS: Hemoglobin A1C 5.5 % (4.0-6.0)
[2023-07-31 08:30] LABS: HBsAg Screen Negative (Negative); HCV Ab Non Reactive (Non Reactive); Hep A Ab, IGM Negative (Negative); Hep B Core Ab, IgM Negative (Negative)
[2023-07-31 10:13] LABS: HIV Screen 4th Generation wRfx Non Reactive (Non Reactive)
== END 2023-07-29 23:59 | disposition home or self-care (01) ==
LOC: LAB.DROPOF 22:57
PROVIDERS: PCP Internal Medicine; Visit Provider Internal Medicine
DX: R53.83 Other fatigue (principal); B34.9 Viral infection, unspecified; R06.02 Shortness of breath; I10 Essential (primary) hypertension; E78.5 Hyperlipidemia, unspecified; J44.1 Chronic obstructive pulmonary disease with (acute) exacerbation; K76.9 Liver disease, unspecified; F41.9 Anxiety disorder, unspecified; F10.90 Alcohol use, unspecified, uncomplicated; F17.210 Nicotine dependence, cigarettes, uncomplicated; M25.50 Pain in unspecified joint; Z79.899 Other long term (current) drug therapy; Z11.4 Encounter for screening for human immunodeficiency virus [HIV]; Z12.5 Encounter for screening for malignant neoplasm of prostate
CPT/HCPCS: 80053; 80061; 80074; 82306; 83036; 84443; 85025; 86703; G0103; G0432

== ENCOUNTER → 2023-07-31 06:47 | Day surgery (SDC) | payer MEDICAID, SELFPAY ==
[2023-07-30 11:34] VITALS: BMI 27.0
--- NOTE | 2023-07-31 07:36 | SUR.PREOP ---
Patient's procedure cancelled due to never picking up bowel prep regimen from pharmacy. MD Barajas cancelled procedure. Pt given strict follow up instructions from MD Barajas. Pt verbalized understanding and was taken out via wheelchair by JOHNNY Jung.
== END ==
LOC: OUTP 06:48
PROVIDERS: PCP Internal Medicine; Visit Provider Surgery
PROC: 0DJD8ZZ Inspection of Lower Intestinal Tract, Via Natural or Artificial Opening Endoscopic (ICD-10-PCS; CPT 45378; principal; 2023-07-31 07:30)
DX: Z53.8 Procedure and treatment not carried out for other reasons (principal); Z12.11 Encounter for screening for malignant neoplasm of colon
CPT/HCPCS: 45378

== ENCOUNTER 2023-08-12 12:56 | Outpatient (RCR) | payer MEDICAID, SELFPAY ==
--- NOTE | 2023-08-12 15:28 | HMH.PTOPEV ---
PT Outpatient Evaluation Rehab PT Outpatient Evaluation Start: 08/12/23 12:59 Freq: Status: Active Protocol: Document 08/12/23 12:59 MILTON (Rec: 08/12/23 15:08 MILTON [id number]) E-signed By Gricelda Weber, PT Outpatient Therapy Subjective History Subjective History Pt is a 57 y/o male who reports chronic low back pain since he was 19 years old. 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 Pt reports gradual worsening of LBP overtime. Pt reports L>R low back pain that often refers down into his hips. Pt denies numbness/ tingling with exception of his L lateral knee following ACL repair years ago. Pt reports low back pain is aggravated by prolonged sitting, bending forward and any movement. Pt also states his back pain increases with SOA. Pt reports pain improves with leaning towards his left side.Pt denies having recent imaging of his back. Pt states he takes prescribed Percocet 10mg for low back pain which he states does help with pain. Pt reports he has been using a wheelchair for his main form of mobility for 5 yaers due to LBP and SOA. Pt reports he uses 2L NC of oxygen at home and 3L in the community. Pt states he often uses a rollator walker for household ambulation of ~20-25 and can stand no longer than a few minutes. Pt reports he often gets panic attacks due to feeling short of breath. Medical History:Abnormal PET scan of colon, CAD in [place] artery, Pneumonia, Abnormal electrocardiogram [ECG] [EKG], Dyspnea, Pseudomonal pneumonia, Hyperlipemia, HTN ( hypertension), Overweight (BMI 25.0-29.9), Pulmonary emphysema, Chronic hypoxemic respiratory failure, Tobacco abuse disorder, Tobacco abuse counseling, Screening for lung cancer, Smoking greater than 30 pack years, Dyspnea on exertion, Tobacco use, COPD ( chronic obstructive pulmonary disease) Vitals at rest: SpO2 90 on 3LNC, 89 HR, BP taken seated in L arm 90/58 mmHg - SpO2 dropped to 82% during lumbar AROM assessment improved to baseline with rest and PLB New diagnosis of cancer in past 12 No months? Chief Complaint Pain Symptom Type Ache,Sharp,Stabbing Symptoms Relieved By Rest/Positioning,Prescription Meds Symptoms Aggravated By Sitting,Standing,Bending/ Stooping,Physical Activity, Walking,Lifting Current Functional Limitations Lifting,Housework,Standing, Sitting,Walking,Bending/ Stooping Symptom Description Constant but Variable Level of pain today (0-10) 7 Pain scale - at its best (0-10) 7 Pain scale - at its worst (0-10) 10 Lumbopelvic Eval Posture Lumbar Spine Posture Standing Position Decreased Lordosis Assistive device Assistive Devices Wheelchair Palapation tenderness bilateral thoracic spinal tenderness Yes lumbar spinal tenderness Yes Lumbar/Sacral Palpation Findings Tenderness,Muscle Guarding Range of Motion Lumbar Spine Active Flexion Range of 30 Motion (degrees) Lumbar Spine Active Extension Range of 10 Motion (degrees) Manual Muscle Test Bilateral Knee Extension Strength Grade 4- Good- Knee Flexion Strength Grade 4- Good- Hip Flexion Strength Grade 4- Good- Hip Abduction Strength Grade 4- Good- Hip Adduction Strength Grade 4- Good- Hip Extension Strength Grade 4- Good- Ankle Dorsiflexion Strength Grade 5 Normal DTR Rt Patellar 2+ Lt Patellar 2+ Rt Gastroc/Soleus 2+ Lt Gastroc/Soleus 2+ Altered Sensation Bilateral Comment equal and intact to light touch sensation bilaterally Outpatient Therapy Assessment Impairments Problems/Impairmments Palpation Tenderness,Impaired Range of Motion,Impaired Strength,Impaired Walking, Impaired Standing,Impaired Lifting,Impaired Household Care,Impaired Squatting, Impaired Bending,Subjective C/ O Pain,Impaired Self Care/Self Management Prognosis Rehab Potential Good Comment Barriers to progress include multiple comorbidities, chronic pain and reliance on others for transportation Clinical Impression Consistent with Diagnosis Yes Consistent with rec cardiopulm rehab if appropriate Short Term Goals Number of Weeks 3 Decrease Subjective C/O Pain Yes: Improve pain at worst to 6/10 to improve overall QOL Improve Self Care/Self Management Yes Patient to be Ind w/ HEP Yes Flight Steward Goals Number of Weeks 6 Increase Range of Motion Yes: Improve lumbar flexion AROM to at least 50 Increase Strength Yes: Improve BLE MMT to 4+/5 grossly to assist with function Increase Ability to Stand Yes: 5' with pain 6/10 or less to assist with ADLs Decrease Subjective C/O Pain Yes: Improve pain at worst to 6/10 to improve overall QOL Outpatient Therapy Plan of Care Treatment Plan May Include Therapeutic Exercise Including Home Yes Exercise Program Manual Therapy Techniques Yes Neuromuscular Re-education Yes Therapeutic Activities to Return to Yes Previous Functional/Work Level ADL/Self Care Education Yes Mechanical Traction Yes Dry Needling Yes Thermal Modalities Yes Electrical Stimulation Yes Ultrasound/Phonophoresis Yes Iontophoresis Yes Massage Yes Eval/Re-Eval Yes Frequency Times per week 1-2 Duration Number of Weeks 4 Addendums This patient is a candidate for social No or vocational rehab? Patient/Guardian verbally acknowledges Yes understanding of treatment program and consents to further treatment? Patient/Guardian verbally acknowledges Yes understanding of diagnosis, prognosis and goals for treatment? Eval Complexity PT Charges 14758 - Moderate Complexity Shoulder/Elbow Eval Shoulder Objective Measurements Elbow Objective Measurements PHYSICIAN CERTIFICATION: I certify the specified therapy services for Ancelmo Lima are required, authorized, and reviewed every 30 days.
== END 2023-08-12 14:00 | disposition home or self-care (01) ==
LOC: PT 12:56
PROVIDERS: Visit Provider Internal Medicine
DX: M54.50 Low back pain, unspecified (principal)
CPT/HCPCS: 97163

== ENCOUNTER 2023-10-17 07:19 | Outpatient (CLI) | payer MEDICAID, SELFPAY ==
--- NOTE | 2023-10-17 07:20 | CT_ITS ---
FINAL REPORT TECHNIQUE: Axial images through the chest were performed by computed tomography. This study was performed with techniques to keep radiation doses as low as reasonably achievable, (ALARA). Individualized dose reduction techniques using automated exposure control or adjustment of mA and/or kV according to the patient's size were employed. CLINICAL HISTORY: 3-month follow-up from 07/12/2023 COMPARISON: 07/01/2023 FINDINGS: CT CHEST without contrast COMPARISON: 07/01/2023. FINDINGS: No acute lung disease is present . Severe changes of emphysema are once again identified. The nodules newly seen on the prior examination of 07/01/2023 remain present. There is a tiny nodule in the right lower lobe measuring 2 mm, was previously 4 mm, best seen on image #59. There is a 4 mm right lower lobe nodule, was previously 5 mm in size, best seen on image #67. There are other more chronic nodules identified, which are also stable in appearance. No pleural or pericardial effusion is seen . No adenopathy or mass lesion is present . IMPRESSION: Multiple nodules are identified, with the nodules newly seen on the most recent exam of 07/01/2023 either stable or decreased in size. Would recommend 12-month follow-up LDCT for further evaluation. Severe changes of emphysema are once again identified. Reviewed, Interpreted and Dictated by Ernesto Fernandez MD Transcribed by Mague Kimbrough Authenticated and [facility]
== END 2023-10-17 23:59 | disposition home or self-care (01) ==
LOC: RAD 07:20
PROVIDERS: PCP Internal Medicine; Visit Provider Internal Medicine Pulmonary Disease
DX: R91.8 Other nonspecific abnormal finding of lung field (principal)
CPT/HCPCS: 71250

== ENCOUNTER 2023-12-06 05:41 | Emergency (ER) | payer MEDICAID, SELFPAY ==
[2023-12-06] VITALS (12 sets, daily range): BP systolic 92–156; BP diastolic 55–88; PULSE 90–114; RESP 16–25; TEMP 36.6–36.9; O2SAT 93–99; BMI 26.4
--- NOTE | 2023-12-06 05:47 | ED_ITS ---
Discharge Plan Disposition Chief Complaint: Shortness of Breath/Dyspnea Prescriptions Prescriptions: No Action ergocalciferol (vitamin D2) 1,250 mcg (50,000 unit) capsule 50,000 unit PO WEEKLY Qty: 10 10RF metoprolol succinate [Toprol XL] 25 mg tablet extended release 24 hr 12.5 mg PO DAILY Qty: 30 5RF Rx Instructions: take 0.5 tablet daily aspirin [Adult Aspirin Regimen] 81 mg tablet,delayed release (DR/EC) 81 mg PO DAILY Qty: 30 2RF bupropion HCl 150 mg tablet extended release 24 hr 150 mg PO DAILY Qty: 30 2RF buspirone 5 mg tablet 5 mg PO BID Qty: 60 2RF (DME) oxygen-air delivery systems Device See Rx Instructions .Route Rx Instructions: As directed Saline Nasal 0.65 % aerosol,spray 1 spray intranasal BID PRN (Reason: dry nasal passages) Qty: 44 2RF fluoxetine 20 mg capsule 20 mg PO DAILY 30 Days Qty: 30 2RF amitriptyline 25 mg tablet 25 mg PO HS Qty: 30 2RF oxycodone 10 mg tablet 10 mg PO QID PRN (Reason: pain) 30 Days Qty: 120 0RF methylnaltrexone 150 mg tablet 450 mg PO DAILY Qty: 90 0RF diazepam 10 mg tablet 10 mg PO BID PRN (Reason: anxiety) Qty: 60 1RF atorvastatin 40 mg tablet See Rx Instructions .ROUTE .COMPLEX Qty: 30 5RF Dose Instruction: TAKE ONE TABLET BY MOUTH AT BEDTIME Rx Instructions: TAKE ONE TABLET BY MOUTH AT BEDTIME prasugrel [Effient] 10 mg tablet 10 mg PO DAILY 90 Days Qty: 90 4RF Trelegy Ellipta 100-62.5-25 mcg blister with device 1 inh inhalation DAILY 90 Days Qty: 90 2RF ipratropium-albuterol 0.5 mg-3 mg(2.5 mg base)/3 mL solution for nebulization See Rx Instructions .ROUTE .COMPLEX Qty: 360 1RF Dose Instruction: INHALE THE CONTENTS OF 1 VIAL VIA NEBULIZER EVERY 6 HOURS NEEDED FOR WHEEZING Rx Instructions: INHALE THE CONTENTS OF 1 VIAL VIA NEBULIZER EVERY 6 HOURS NEEDED FOR WHEEZING albuterol sulfate [Ventolin HFA] 90 mcg/actuation HFA aerosol inhaler See Rx Instructions .ROUTE .COMPLEX Qty: 18 0RF Dose Instruction: INHALE 2 PUFFS BY MOUTH EVERY 4 TO 6 HOURS NEEDED FOR SHORTNESS OF BREATH SHAKE WELL Rx Instructions: INHALE 2 PUFFS BY MOUTH EVERY 4 TO 6 HOURS NEEDED FOR SHORTNESS OF BREATH SHAKE WELL Referrals Follow up/Referrals: Phu Weber DO [Primary Care Provider] - See instructions Clinical Impressions Clinical Impression: Acute exacerbation of chronic obstructive pulmonary disease Print Language Print Language: Citizen Of [place] Discharge ED Provider: Juan Luis Chong General Adult HPI General Chief complaint: Shortness of Breath/Dyspnea Stated complaint: SOB Time Seen by Provider: 12/06/23 05:46 History of Present Illness HPI narrative: 58-year-old male with history of coronary artery disease, COPD on 3 L nasal cannula baseline presents for worsening shortness of breath. He reports symptoms been ongoing for approximate the last week. He reports increased clear sputum production. Denies any fever. Denies any chest pain abdominal pain or other symptoms. Related Data Home Medications ?Medication ?Instructions ?Recorded ?Confirmed oxygen-air delivery systems 07/25/22 12/02/23 Previous Rx's ?Medication ?Instructions ?Recorded aspirin 81 mg tablet,delayed 81 mg PO DAILY #30 tabs 12/28/22 release (Adult Aspirin Regimen) metoprolol succinate 25 mg 12.5 mg (1/2 x 25 mg) PO DAILY #30 12/28/22 tablet,extended release 24 hr tabs (Toprol XL) ergocalciferol (vitamin D2) 1,250 50,000 unit PO WEEKLY Supplement 01/01/23 mcg (50,000 unit) capsule #10 caps sodium chloride 0.65 % nasal spray 1 spray intranasal BID PRN dry 05/01/23 aerosol (Saline Nasal) nasal passages #44 mL atorvastatin 40 mg tablet See Rx Instructions .Route 07/15/23 .COMPLEX #30 tabs fluoxetine 20 mg capsule 20 mg PO DAILY 30 days #30 caps 07/29/23 prasugrel 10 mg tablet (Effient) 10 mg PO DAILY 90 days #90 tabs 08/19/23 bupropion HCl 150 mg 24 hr tablet, 150 mg PO DAILY #30 tabs 08/29/23 extended release buspirone 5 mg tablet 5 mg PO BID #60 tabs 08/29/23 fluticasone fur. 100 mcg-umeclid 1 inh inhalation DAILY 90 days #90 09/23/23 62.5 mcg-vilant 25 mcg ea inhalat.powder (Trelegy Ellipta) amitriptyline 25 mg tablet 25 mg PO HS #30 tabs 10/30/23 diazepam 10 mg tablet 10 mg PO BID PRN anxiety #60 tabs 10/30/23 methylnaltrexone 150 mg tablet 450 mg (3 x 150 mg) PO DAILY #90 10/30/23 tabs oxycodone 10 mg tablet 10 mg PO QID PRN pain 30 days #120 10/30/23 tabs ipratropium 0.5 mg-albuterol 3 mg See Rx Instructions .Route 11/11/23 (2.5 mg base)/3 mL nebulization .COMPLEX #360 mL soln albuterol sulfate 90 mcg/actuation See Rx Instructions .Route 12/02/23 aerosol inhaler (Ventolin HFA) .COMPLEX #18 grams Allergies Allergy/AdvReac Type Severity Reaction Status Date / Time aspirin [ASPIRIN] Allergy Mild Verified 12/02/23 11:57 codeine [CODEINE] Allergy Mild Verified 12/02/23 11:57 ibuprofen [IBUPROFEN] Allergy Unknown Verified 12/02/23 11:57 acetaminophen [From Tylenol] Allergy Verified 12/02/23 11:57 tramadol Allergy Verified 12/02/23 11:57 [facility] Disclaimer: The information contained in this section may have been updated after the patient was seen, as this information can be updated by other users. Medical History Abnormal PET scan of colon CAD in [place] artery Pneumonia Abnormal electrocardiogram [ECG] [EKG] Dyspnea Pseudomonal pneumonia Hyperlipemia HTN (hypertension) Overweight (BMI 25.0-29.9) Pulmonary emphysema Chronic hypoxemic respiratory failure Tobacco abuse disorder Tobacco abuse counseling Screening for lung cancer Smoking greater than 30 pack years Dyspnea on exertion Tobacco use COPD (chronic obstructive pulmonary disease) Patient is following with pulmonary. He does have multiple nodules in the lung. He also has severe COPD. Initially in October this patient had no pulmonary nodules however in June 2021 and then 2023 there were new nodules noted. This along with the abnormalities found on the PET scan is obviously very concerning see below. Surgical History History of repair of ACL History of colonoscopy Family History Other Alcohol abuse Cancer Coronary artery disease Diabetes Emphysema lung Social History Smoking Status: Current every day smoker tobacco type: cigarettes packs per day: 2 second hand exposure: Yes alcohol intake: former substance use type: denies use current occupational status: disabled Travel in the last 8 weeks: None household members: friend(s) housing: house ROS Obtained: Yes All systems reviewed & no additional complaints except as documented Physical Exam General General appearance: alert and in distress Head Head exam: atraumatic and normocephalic Eye Eye exam: Present normal appearance, PERRL and EOMI ENT ENT exam: Present normal oropharynx and normal external ear exam Neck Neck exam: Present normal inspection and full ROM Chest Chest inspection: Present normal inspection and symmetric chest wall rise; Absent tenderness Respiratory Respiratory exam: Present respiratory distress (Tripoding), wheezes and prolonged expiratory phase Cardiovascular Cardiovascular exam: Present regular rate and normal rhythm Abdominal Exam Abdominal exam: Present soft; Absent distention, tenderness or guarding Extremities Exam Extremities exam: Present normal inspection; Absent edema or joint swelling Back Exam Back exam: Present normal inspection; Absent tenderness Neurological Exam Neurological exam: Present alert and oriented X3; Absent motor sensory deficit Psychiatric Psychiatric exam: Present normal affect and normal mood Skin Skin exam: Present warm, dry and normal color Lymphatic Lymphatic Findings: no adenopathy Medical Decision Making Medical Records Medical records reviewed: Yes I reviewed the patient's medical records. [place] Inquiry Pt receiving controlled substance: No [place] was queried for this patient: No Vital Signs: 12/06/23 05:41 Temperature 98.4 F Temperature Source Oral Pulse Rate [Left] 114 H Respiratory Rate 22 Blood Pressure [Right Arm] 156/88 H Blood Pressure Mean [Right Arm] 110 02 Sat by Pulse Oximetry 95 Lab Data Lab results reviewed: Yes I reviewed the patient's lab results. Lab Results 12/06/23 05:44: WBC 8.2, RBC 4.63, Hgb 13.7 L, Hct 45.9, MCV 99.1 H, MCH 29.5, M CHC 29.8 L, RDW 14.4, Plt Count 217, MPV 8.5, Neut % (Auto) 66.4, Lymph % (Auto) 21.2, [place] % (Auto) 8.0, Eos % (Auto) 3.3, Baso % (Auto) 1.1, Neut # (Auto) 5.4, Lymph # (Auto) 1.7, [place] # (Auto) 0.7, Eos # (Auto) 0.3, Baso # (Auto) 0.1, Sodium 142, Potassium 4.2, Chloride 98, Carbon Dioxide 40 H, Anion Gap 8.2, BUN 16, Creatinine 1.30 H, Estimated Creat Clear 77, Estimated GFR 57 L, Est GFR ( Amer) 69, Glucose 107 H, Calcium 8.4, Total Bilirubin 0.5, AST 17, ALT 12, Alkaline Phosphatase 63, Total Protein 6.9, Albumin 3.8, Globulin 3.1, Albumin/Globulin Ratio 1.2 12/06/23 05:44 12/06/23 05:44 Orders (Tests/Meds): ED MEDICATIONS Discontinued Medications Generic Name Dose Route Start Last Admin Trade Name Freq PRN Reason Stop Dose Admin Albuterol/Ipratropium 6 ml 12/06/23 05:47 12/06/23 06:01 Ipratropium/Albuterol 3 Ml Neb IH 12/06/23 05:48 6 ml ONCE ONE Administration Magnesium Sulfate 2 gm in 50 mls @ 50 mls/hr 12/06/23 05:47 12/06/23 06:01 Magnesium Sulfate 2gm/50ml Premix IV 12/06/23 06:46 50 mls/hr ONCE ONE Administration ORDERS Category Date Time Status CXR --portable [XR chest portable] Stat Exams 12/06/23 05:47 Completed CBC w/Auto Diff [Complete Blood Count Auto Diff] Stat Lab 12/06/23 05:44 Completed CMP [Comprehensive Metabolic Panel] Stat Lab 12/06/23 05:44 Completed VBG [Venous Blood Gas] Stat RT 12/06/23 05:44 Received Medical Decision Narrative: 58-year-old male with history of COPD on 3 to send cannula baseline presents for 1 week of worsening productive cough and shortness of breath.. History was obtained via interactive discussion with patient, EMS, chart review. On arrival, patient is afebrile, hemodynamically stable, uncomfortable appearing in respiratory distress with poor air movement bilaterally, prolonged expiratory phase and diffuse wheezing. Differential includes but is not limited to COPD exacerbation, pneumonia, heart failure Patient was given 1 DuoNeb and 125 Solu-Medrol IV by EMS prior to arrival. On arrival to our ER he was given 2 DuoNebs and 2 g IV mag. For symptomatic management and correction of underlying abnormalities. Workup initiated including CBC CMP chest x-ray. On re-evaluation, patient reports significant symptomatic improvement. He still has some wheezing but is breathing much more comfortably. Laboratory workup independently interpreted by me and significant for no significant leukocytosis, slight DONITA with creatinine 1.3, up from baseline of around 0.9 Imaging independently interpreted by me and significant for emphysematous changes without focal opacity. See radiology read for full review of final results. At this time care has had oncoming physician for continued monitoring after interventions. Given patient history, exam and workup, patient's presentation most likely represents acute COPD exacerbation.. Procedures Risk/Benefits of Procedure(s) Were Explained: Yes Critical Care Critical Care Time Critical Care Time: Yes Attestation: On 12/06/23, the high probability of a clinically significant, sudden or life threatening deterioration of the following system(s) respiratory required my full and direct attention, intervention and personal management. The time I documented below is in addition to time spent performing reported procedures but includes the following listed in this critical care notation. Total Time Total Critical Care Time: 36
--- NOTE | 2023-12-06 05:47 | XR_ITS ---
PROCEDURE INFORMATION: Exam: XR Chest Exam date and time: 12/06/2023 5:53 AM Age: 58 years old Clinical indication: Shortness of breath; Additional info: Copd, SOA TECHNIQUE: Imaging protocol: Radiologic exam of the chest. Views: 1 view. COMPARISON: CT CHEST WO CON 10/17/2023 7:20 AM FINDINGS: Lungs: Hyperinflation. No consolidation. Pleural spaces: Unremarkable. No pleural effusion. No pneumothorax. Heart/Mediastinum: Unremarkable. Mild cardiomegaly. Bones/joints: Unremarkable. IMPRESSION: Hyperinflation and mild cardiomegaly.
[2023-12-06 05:59] LABS: Alanine Aminotransferase 12 U/L (12-78); Albumin Level 3.8 g/dl (3.5-5.0); Albumin/Globulin Ratio 1.2 (1.1-1.8); Alkaline Phosphatase 63 U/L (38-126); Aspartate Amino Transferase 17 U/L (17-59); Bilirubin,Total 0.5 mg/dl (0.2-1.3); Blood Urea Nitrogen 16 mg/dl (9-20); Chloride 98 mmol/L (98-107); Estimated Glomerular Filt Rate 57 ml/min (>60); GFR (African American) 69 ML/MIN (>60); Globulin 3.1 g/dL (1.3-3.2); Potassium 4.2 mmoL/L (3.5-5.1); Sodium 142 mmol/L (136-145); Total Protein,Serum 6.9 g/dl (6.3-8.2)
[2023-12-06 06:00] LABS: Calcium 8.4 mg/dl (8.4-10.2); Glucose 107 mg/dl (74-100)
[2023-12-06] MEDS: MAGNESIUM SULFATE IN WATER 2 GM/50 ML PIGGYBACK IV (06:01)
[2023-12-06] MEDS: IPRATROPIUM/ALBUTEROL 3 ML NEB 6 ML IH (06:01)
[2023-12-06 06:02] LABS: Basophils # 0.1 K/mm3 (0-0.2); Basophils % 1.1 % (0.1-2.0); Eosinophils # 0.3 K/mm3 (0.0-0.4); Eosinophils % 3.3 % (0.1-12.0); Hematocrit 45.9 % (42.0-52.0); Hemoglobin 13.7 g/dL (14.1-18.0); Lymphocytes # 1.7 K/mm3 (0.7-4.5); Lymphocytes % 21.2 % (10-50); Mean Corpuscular HGB Conc 29.8 g/dL (31.8-35.4); Mean Corpuscular Hemoglobin 29.5 pg (27.0-31.2); Mean Corpuscular Volume 99.1 fl (80-94); Mean Platelet Volume 8.5 fl (7.4-10.4); Monocytes # 0.7 K/mm3 (0.1-1.0); Neutrophils # 5.4 K/mm3 (1.8-7.8); Neutrophils % 66.4 % (37.0-80.0); Platelet Count 217 K/mm3 (142-424); Red Blood Count 4.63 M/mm3 (4.60-6.20); Red Cell Distribution Width 14.4 % (11.5-17.5); White Blood Count 8.2 K/mm3 (4.8-10.8)
[2023-12-06 06:08] LABS: Anion Gap 8.2 mEq/L (5-15); Carbon Dioxide 40 mmol/L (22.0-30.0); Creatinine Clearance Estimated 77 mL/min (50-200)
[2023-12-06] MEDS: AMOXICILLIN/CLAVULANATE POTASSIUM 875/125MG TABLET 1 EACH PO (07:02)
--- NOTE | 2023-12-06 07:41 | PC.NURSE ---
rounded on pt, nasal canal changed out due to comfort, pt requesting that I call his brother for his phone. Attempted to call his brother with no answer. Pt updated and will call again.
--- NOTE | 2023-12-06 08:04 | PC.NURSE ---
Dr. Alvarez at bedside
[2023-12-06] MEDS: IPRATROPIUM/ALBUTEROL 3 ML NEB 9 ML IH ×2 (08:17→09:18)
[2023-12-06 08:24] LABS: Lactate Venous 1.6 mmol/L (0.4-2.0); VBG Base Excess 10.1 mmol/L (-2.4-2.3); VBG HCO3 36.6 mmol/L (23-30); VBG Oxygen Saturation 77.3 % (50-70); VBG PCO2 76.8 mmol/L (35-51); VBG PO2 39.7 mmol/L (28-40)
--- NOTE | 2023-12-06 08:40 | PC.NURSE ---
call made to resp for bipap placement
--- NOTE | 2023-12-06 08:54 | PC.NURSE ---
Dr. Alvarez at bedside
--- NOTE | 2023-12-06 10:57 | PC.NURSE ---
TRN went into pts room to discharge pt. pt asked where his oxygen was. TRN explained to pt that when he come in via EMS they did not bring his car or his portable oxygen. pt given portable phone to attempt to call his brother for a ride home.
--- NOTE | 2023-12-06 11:10 | PC.NURSE ---
I spoke with care management who was able to get ahold of the pts sister. pts sister states she or his brother will be on their way shortly and will curing pickling packer his oxygen on the way in.
== END 2023-12-06 11:51 | disposition home or self-care (01) ==
PROVIDERS: Emergency Medicine; Emergency Provider Emergency Medicine; PCP Internal Medicine
DX: J44.1 Chronic obstructive pulmonary disease with (acute) exacerbation (principal); R06.02 Shortness of breath; R06.2 Wheezing; F17.210 Nicotine dependence, cigarettes, uncomplicated; I11.9 Hypertensive heart disease without heart failure; I25.10 Atherosclerotic heart disease of native coronary artery without angina pectoris; E78.5 Hyperlipidemia, unspecified
CPT/HCPCS: 71045; 80053; 82803; 85025; 96365; 99284; J3475; J7620

== ENCOUNTER 2023-12-22 17:57 | Emergency (ER) | payer MEDICAID, SELFPAY ==
--- NOTE | 2023-12-22 18:00 | ED_ITS ---
<Statement entered by Karan Sylvester MD - 12/22/23 22:02> I was consulted by the SHANICE, and we discussed the complexity of the problems being addressed. I approved the treatment and management plan for this patient's care in the emergency department, thus performing a substantive portion of the medical decision making. Karan Sylvester MD, JOSÉ LUIS, FACEP Discharge Plan Disposition Patient Disposition: Home, Self-Care Condition: Good Prescriptions Prescriptions: New polyethylene glycol 3350 [Miralax] 17 gram/dose powder 17 g PO DAILY Qty: 510 0RF docusate sodium 100 mg capsule 100 mg PO BID Qty: 60 0RF No Action ergocalciferol (vitamin D2) 1,250 mcg (50,000 unit) capsule 50,000 unit PO WEEKLY Qty: 10 10RF metoprolol succinate [Toprol XL] 25 mg tablet extended release 24 hr 12.5 mg PO DAILY Qty: 30 5RF Rx Instructions: take 0.5 tablet daily aspirin [Adult Aspirin Regimen] 81 mg tablet,delayed release (DR/EC) 81 mg PO DAILY Qty: 30 2RF (DME) oxygen-air delivery systems Device See Rx Instructions .Route Rx Instructions: As directed fluoxetine 20 mg capsule 20 mg PO DAILY 30 Days Qty: 30 2RF amitriptyline 25 mg tablet 25 mg PO HS Qty: 30 2RF methylnaltrexone 150 mg tablet 450 mg PO DAILY Qty: 90 0RF diazepam 10 mg tablet 10 mg PO BID PRN (Reason: anxiety) Qty: 60 1RF atorvastatin 40 mg tablet See Rx Instructions .ROUTE .COMPLEX Qty: 30 5RF Dose Instruction: TAKE ONE TABLET BY MOUTH AT BEDTIME Rx Instructions: TAKE ONE TABLET BY MOUTH AT BEDTIME prasugrel [Effient] 10 mg tablet 10 mg PO DAILY 90 Days Qty: 90 4RF Trelegy Ellipta 100-62.5-25 mcg blister with device 1 inh inhalation DAILY 90 Days Qty: 90 2RF buspirone 5 mg tablet See Rx Instructions .ROUTE .COMPLEX Qty: 60 0RF Dose Instruction: TAKE ONE TABLET BY MOUTH 2 TIMES A DAY Rx Instructions: TAKE ONE TABLET BY MOUTH 2 TIMES A DAY bupropion HCl 150 mg tablet extended release 24 hr See Rx Instructions .ROUTE .COMPLEX Qty: 30 2RF Dose Instruction: TAKE ONE TABLET BY MOUTH ONCE A DAY Rx Instructions: TAKE ONE TABLET BY MOUTH ONCE A DAY ipratropium-albuterol 0.5 mg-3 mg(2.5 mg base)/3 mL solution for nebulization See Rx Instructions .ROUTE .COMPLEX Qty: 180 2RF Dose Instruction: INHALE THE CONTENTS OF 1 VIAL VIA NEBULIZER EVERY 4 HOURS NEEDED FOR WHEEZING Rx Instructions: INHALE THE CONTENTS OF 1 VIAL VIA NEBULIZER EVERY 4 HOURS NEEDED FOR WHEEZING albuterol sulfate [Ventolin HFA] 90 mcg/actuation HFA aerosol inhaler See Rx Instructions .ROUTE .COMPLEX Qty: 18 0RF Dose Instruction: INHALE 2 PUFFS BY MOUTH EVERY 4 TO 6 HOURS NEEDED FOR SHORTNESS OF BREATH SHAKE WELL Rx Instructions: INHALE 2 PUFFS BY MOUTH EVERY 4 TO 6 HOURS NEEDED FOR SHORTNESS OF BREATH SHAKE WELL oxycodone 10 mg tablet 10 mg PO QID PRN (Reason: pain) 30 Days Qty: 120 0RF Bude Saline 0.65 % aerosol,spray See Rx Instructions .ROUTE .COMPLEX Qty: 50 4RF Dose Instruction: USE 1 SPRAY IN EACH NOSTRIL 2 TIMES A DAY NEEDED FOR DRY NASAL PASSAGES Rx Instructions: USE 1 SPRAY IN EACH NOSTRIL 2 TIMES A DAY NEEDED FOR DRY NASAL PASSAGES amoxicillin-pot clavulanate 875-125 mg tablet 1 tab PO BID 14 Days Qty: 28 0RF prednisone 10 mg tablets,dose pack See Rx Instructions PO PER PKG DIR Qty: 21 0RF Rx Instructions: PO PER PKG DIR nicotine 21 mg/24 hr patch 24 hour 1 patch transdermal DAILY Qty: 28 0RF ipratropium-albuterol 0.5 mg-3 mg(2.5 mg base)/3 mL solution for nebulization 3 ml inhalation Q4H PRN (Reason: wheezing) Qty: 180 0RF Referrals Follow up/Referrals: Provider,Odalys, [Primary Care Provider] - See instructions Estiven Luis MD [Staff Physician] - See instructions Activity Restrictions/Add. Instructions Additional Instructions/Restrictions: Please take the prescription bowel softeners. Please avoid sitting for prolonged period of time directly on your buttocks is much as possible. Please call on Saturday morning to establish an appointment with Dr. Luis. Return to ER for any worsening signs or symptoms as needed Clinical Impressions Clinical Impression: Bleeding hemorrhoids Print Language Print Language: Mongolian Discharge ED Provider: Karan Sylvester General Adult HPI General Chief complaint: GI Bleed Stated complaint: rectal bleeding Time Seen by Provider: 12/22/23 17:58 History of Present Illness HPI narrative: Patient presents for evaluation of bright red blood per rectum. Patient has had multiple bloody bowel movements today. Patient normally utilizes a wheelchair to get around his home. He has had 1 previous episode 5 years ago but it was not investigated according to him. He has never had a colonoscopy. Patient also reports that he takes an aspirin a day. He denies fever chills hemoptysis hematuria hematemesis. Related Data Home Medications ?Medication ?Instructions ?Recorded ?Confirmed oxygen-air delivery systems 07/25/22 12/02/23 Previous Rx's ?Medication ?Instructions ?Recorded aspirin 81 mg tablet,delayed 81 mg PO DAILY #30 tabs 12/28/22 release (Adult Aspirin Regimen) metoprolol succinate 25 mg 12.5 mg (1/2 x 25 mg) PO DAILY #30 12/28/22 tablet,extended release 24 hr tabs (Toprol XL) ergocalciferol (vitamin D2) 1,250 50,000 unit PO WEEKLY Supplement 01/01/23 mcg (50,000 unit) capsule #10 caps atorvastatin 40 mg tablet See Rx Instructions .Route 07/15/23 .COMPLEX #30 tabs fluoxetine 20 mg capsule 20 mg PO DAILY 30 days #30 caps 07/29/23 prasugrel 10 mg tablet (Effient) 10 mg PO DAILY 90 days #90 tabs 08/19/23 fluticasone fur. 100 mcg-umeclid 1 inh inhalation DAILY 90 days #90 09/23/23 62.5 mcg-vilant 25 mcg ea inhalat.powder (Trelegy Ellipta) amitriptyline 25 mg tablet 25 mg PO HS #30 tabs 10/30/23 diazepam 10 mg tablet 10 mg PO BID PRN anxiety #60 tabs 10/30/23 methylnaltrexone 150 mg tablet 450 mg (3 x 150 mg) PO DAILY #90 10/30/23 tabs ipratropium 0.5 mg-albuterol 3 mg 3 ml inhalation Q4H PRN wheezing 12/06/23 (2.5 mg base)/3 mL nebulization #180 mL soln nicotine 21 mg/24 hr daily 1 patch transdermal DAILY #28 ea 12/06/23 transdermal patch albuterol sulfate 90 mcg/actuation See Rx Instructions .Route 12/10/23 aerosol inhaler (Ventolin HFA) .COMPLEX #18 grams bupropion HCl 150 mg 24 hr tablet, See Rx Instructions .Route 12/10/23 extended release .COMPLEX #30 tabs buspirone 5 mg tablet See Rx Instructions .Route 12/10/23 .COMPLEX #60 tabs ipratropium 0.5 mg-albuterol 3 mg See Rx Instructions .Route 12/10/23 (2.5 mg base)/3 mL nebulization .COMPLEX #180 mL soln oxycodone 10 mg tablet 10 mg PO QID PRN pain 30 days #120 12/10/23 tabs sodium chloride 0.65 % nasal spray See Rx Instructions .Route 12/16/23 aerosol (Bude Saline) .COMPLEX #50 mL amoxicillin 875 mg-potassium 1 tab PO BID 14 days #28 tabs 12/19/23 clavulanate 125 mg tablet prednisone 10 mg tablets in a dose See Rx Instructions PO PER PKG DIR 12/19/23 pack #21 tabs docusate sodium 100 mg capsule 100 mg PO BID #60 caps 12/22/23 polyethylene glycol 3350 17 17 g PO DAILY #510 grams 12/22/23 gram/dose oral powder (Miralax) Allergies Allergy/AdvReac Type Severity Reaction Status Date / Time aspirin [ASPIRIN] Allergy Mild Verified 12/02/23 11:57 codeine [CODEINE] Allergy Mild Verified 12/02/23 11:57 ibuprofen [IBUPROFEN] Allergy Unknown Verified 12/02/23 11:57 acetaminophen [From Tylenol] Allergy Verified 12/02/23 11:57 tramadol Allergy Verified 12/02/23 11:57 [facility] Disclaimer: The information contained in this section may have been updated after the patient was seen, as this information can be updated by other users. Medical History Abnormal PET scan of colon CAD in [place] artery Pneumonia Abnormal electrocardiogram [ECG] [EKG] Dyspnea Pseudomonal pneumonia Hyperlipemia HTN (hypertension) Overweight (BMI 25.0-29.9) Pulmonary emphysema Chronic hypoxemic respiratory failure Tobacco abuse disorder Tobacco abuse counseling Screening for lung cancer Smoking greater than 30 pack years Dyspnea on exertion Tobacco use COPD (chronic obstructive pulmonary disease) Patient is following with pulmonary. He does have multiple nodules in the lung. He also has severe COPD. Initially in October this patient had no pulmonary nodules however in June 2021 and then 2023 there were new nodules noted. This along with the abnormalities found on the PET scan is obviously very concerning see below. Surgical History History of repair of ACL History of colonoscopy Family History Other Alcohol abuse Cancer Coronary artery disease Diabetes Emphysema lung Social History Smoking Status: Never smoker second hand exposure: Yes alcohol intake: former substance use type: denies use current occupational status: disabled Travel in the last 8 weeks: None household members: friend(s) housing: house ROS Obtained: Yes Systems reviewed as appropriate & no additional complaints except as documented Physical Exam General General appearance: alert and in no apparent distress Respiratory Respiratory exam: Present normal lung sounds bilaterally Cardiovascular Cardiovascular exam: Present regular rate; Absent normal rhythm Neurological Exam Neurological exam: Present alert and oriented X3 Medical Decision Making Medical Records Medical records reviewed: Yes I reviewed the patient's medical records. [place] Inquiry Pt receiving controlled substance: No Vital Signs: 12/22/23 18:02 12/22/23 18:18 12/22/23 18:51 Temperature 97.9 F Temperature Source Oral Pulse Rate 105 H 107 H Pulse Rate [Left Radial] 105 H Respiratory Rate 20 16 Blood Pressure 118/80 124/67 Blood Pressure [Right Arm] 118/80 Blood Pressure Mean 84 Blood Pressure Mean [Right Arm] 92 02 Sat by Pulse Oximetry 96 98 92 L Oxygen Delivery Method Nasal Cannula Room Air Lab Data Lab results reviewed: Yes I reviewed the patient's lab results. Lab Results 12/22/23 18:00: WBC 7.4, RBC 4.46 L, Hgb 13.2 L, Hct 45.3, MCV 101.6 H, MCH 29.6, MCHC 29.1 L, RDW 14.6, Plt Count 276, MPV 8.3, Neut % (Auto) 78.4, Lymph % (Auto) 15.8, Edmunds % (Auto) 4.7, Eos % (Auto) 0.6, Baso % (Auto) 0.5, Neut # (Auto) 5.8, Lymph # (Auto) 1.2, Edmunds # (Auto) 0.4, Eos # (Auto) 0.1, Baso # (Auto) 0.0, PT 11.5, INR 1.03, Sodium 146 H, Potassium 3.8, Chloride 102, Carbon Dioxide 43 H*, Anion Gap 4.8 L, BUN 16, Creatinine 1.00, Estimated Creat Clear 98, Estimated GFR 77, Est GFR ( Amer) 94, Glucose 142 H, Calcium 8.4, Total Bilirubin 0.6, AST 19, ALT 18, Alkaline Phosphatase 55, Total Protein 6.3, Albumin 3.4 L, Globulin 2.9, Albumin/Globulin Ratio 1.2 12/22/23 18:30: Blood Type O Negative, Antibody Screen Negative 12/22/23 18:00 12/22/23 18:00 Orders (Tests/Meds): ED MEDICATIONS Generic Name Dose Route Start Last Admin Trade Name Freq PRN Reason Stop Dose Admin Sodium Chloride 10 ml 12/22/23 18:49 12/22/23 18:50 Sodium Chloride 0.9% 10ml Syr (Rad Only) IV 01/21/24 18:48 10 ml NEEDED PRN Administration Maintain IV Site Sodium Chloride 10 ml 12/22/23 19:07 Sodium Chloride 0.9% 10ml Flush Syringe IV 01/21/24 19:06 NEEDED PRN Maintain IV Site Discontinued Medications Generic Name Dose Route Start Last Admin Trade Name Freq PRN Reason Stop Dose Admin Lactated Ringer's 1,000 mls @ 999 mls/hr 12/22/23 18:01 12/22/23 18:10 Lactated Ringer's 1000 Ml Bag IV 12/22/23 19:01 999 mls/hr .Q1H1M ONE Administration Iopamidol 80 ml 12/22/23 18:49 12/22/23 18:50 Iopamidol-370 (76%);100ml Bottle IV 12/22/23 18:50 80 ml ONCE ONE Administration Sodium Chloride 50 ml 12/22/23 18:49 12/22/23 18:50 0.9 % Sodium Chloride 50 Ml Vial IV 12/22/23 18:50 50 ml ONCE ONE Administration ORDERS Category Date Time Status Type and Screen Stat BBK 12/22/23 18:[address] angio abdomen pelvis Stat Cat Scan 12/22/23 18:01 Completed CBC w/Auto Diff [Complete Blood Count Auto Diff] Stat Lab 12/22/23 18:00 Completed CMP [Comprehensive Metabolic Panel] Stat Lab 12/22/23 18:00 Completed INR [Prothrombin Time INR] Stat Lab 12/22/23 18:00 Completed Medical Decision Narrative: In summary patient is a 8-year-old man who presents to the emergency department for evaluation of bright red blood per rectum. Patient states that he has been having melena for over a year but today it turned into bright red blood. He has never had any endoscopy prior. Patient is normotensive with a heart rate of 100 upon arrival, afebrile. Physical exam is remarkable for fresh blood at the anus and what appears to be a very large area of thrombosed hemorrhoids although it is difficult to tell at the moment due to the bleeding but no visible signs of internal bleeding. Differential diagnosis includes acute lower GI bleed versus brisk upper GI bleed versus bleeding hemorrhoid versus rectal mass etc. Initial workup will be conducted with hematologic labs CT angio abdomen pelvis type and screen. Initial interventions include fluid bolus-. Initial workup reviewed by me shows that his hematologic labs are nonactionable and his H&H is actually stable from a CBC done about 2 weeks ago and my and formal interpretation of his CT scan abdomen pelvis with contrast did not show any extravasation of contrast and no other acute processes noted.. Upon repeat evaluation did have hemostasis after the application of Surgicel to the bleeding site. Given this patient is appropriate for discharge with follow-up with general surgery this week. Patient given strict return precautions. Patient will be started on a bowel regimen. Critical Care Critical Care Time Critical Care Time: No
--- NOTE | 2023-12-22 18:01 | CT_ITS ---
PROCEDURE INFORMATION: Exam: CTA Abdomen and Pelvis With Contrast Exam date and time: 12/22/2023 6:38 PM Age: 58 years old Clinical indication: Other: Blood per rectum; Additional info: Bright red blood per rectum TECHNIQUE: Imaging protocol: Computed tomographic angiography of the abdomen and pelvis with contrast. Exam focused on the arteries. 3D rendering (Not supervised by radiologist): MIP and/or 3D reconstructed images were created by the technologist. Radiation optimization: All CT scans at this facility use at least one of these dose optimization techniques: automated exposure control; mA and/or kV adjustment per patient size (includes targeted exams where dose is matched to clinical indication); or iterative reconstruction. Contrast material: ISOVUE; Contrast volume: 80 ml; Contrast route: INTRAVENOUS (IV); COMPARISON: 1. CT ABDOMEN PELVIS W CON 11/15/2021 3:[address] ANGIO CHEST PE PROTOCOL 11/15/2021 3:[address] CHEST WO CON 10/17/2023 7:20 AM FINDINGS: Lungs: Parenchymal consolidations at the bases could be on the basis of atelectasis but underlying infection is not completely excluded. There are scattered areas of emphysema throughout the lungs. Scattered areas of bronchial wall thickening which are likely chronic inflammatory. A few areas of subpleural reticulation are noted, nonspecific. Pulmonary arteries: There is an artifactual filling defect in a right lower lobe pulmonary arterial branch (image 1 series 7). This does not represent a true thrombus. Aorta: There is atherosclerotic disease of the visualized aorta and its major branch vessels. Celiac trunk and mesenteric arteries: No occlusion or significant stenosis. Renal arteries: There is an accessory right renal artery. Right iliac arteries: No occlusion or significant stenosis. Left iliac arteries: No occlusion or significant stenosis. Liver: No mass. Gallbladder and biliary ducts: Unremarkable. No calcified stones. No ductal dilation. Pancreas: Unremarkable. No mass. No ductal dilation. Spleen: Unremarkable. No splenomegaly. Adrenal glands: Unremarkable. No mass. Kidneys and ureters: There is nonspecific bilateral perinephric stranding. Stomach and bowel: There is large volume stool throughout the colon. There are scattered colonic diverticula without evidence for active diverticulitis. Appendix: No evidence of appendicitis. Intraperitoneal space: Unremarkable. No free air. No significant fluid collection. Lymph nodes: Unremarkable. No enlarged lymph nodes. Urinary bladder: There is moderate distention of the urinary bladder. Reproductive: Unremarkable as visualized. Bones/joints: There is diffuse degenerative disease of the visualized osseous structures. Soft tissues: There are fat containing bilateral inguinal hernias. Other findings: Motion artifact mildly limits evaluation. Motion artifact mildly limits evaluation. IMPRESSION: 1. Parenchymal consolidations at the bases could be on the basis of atelectasis but underlying infection is not completely excluded. 2. At the time of imaging, no active vascular extravasation was observed. It is recommended to correlate with clinical findings for comprehensive assessment. 3. No acute inflammatory or obstructive process is identified. Incidental findings are described within the findings section.
[2023-12-22 18:02] VITALS: BP 118/80; PULSE 105; O2SAT 96
[2023-12-22] MEDS: LACTATED RINGERS 1000ML 1,000 ML 999 ML IV (18:10)
[2023-12-22 18:13] LABS: Basophils % 0.5 % (0.1-2.0); Eosinophils # 0.1 K/mm3 (0.0-0.4); Eosinophils % 0.6 % (0.1-12.0); Hematocrit 45.3 % (42.0-52.0); Hemoglobin 13.2 g/dL (14.1-18.0); Lymphocytes # 1.2 K/mm3 (0.7-4.5); Lymphocytes % 15.8 % (10-50); Mean Corpuscular HGB Conc 29.1 g/dL (31.8-35.4); Mean Corpuscular Hemoglobin 29.6 pg (27.0-31.2); Mean Corpuscular Volume 101.6 fl (80-94); Mean Platelet Volume 8.3 fl (7.4-10.4); Monocytes # 0.4 K/mm3 (0.1-1.0); Monocytes % 4.7 % (1.7-9.3); Neutrophils # 5.8 K/mm3 (1.8-7.8); Neutrophils % 78.4 % (37.0-80.0); Platelet Count 276 K/mm3 (142-424); Red Blood Count 4.46 M/mm3 (4.60-6.20); Red Cell Distribution Width 14.6 % (11.5-17.5); White Blood Count 7.4 K/mm3 (4.8-10.8)
--- NOTE | 2023-12-22 18:13 | PC.NURSE ---
pt presents to ed with his controlled home medications. pt reports some of his controlled medications went missing the last visit he had in the ED. both prescription quantities counted at the bedside woth pt, witnessed by Yefri and MD Ignacio. medications sealed in pt zip lock bag and given back to pt. Valium: 29 full pills and 16 half pieces Oxycodoe: 65 full pills
[2023-12-22 18:18] VITALS: BP 118/80; PULSE 105; RESP 20; TEMP 36.6; O2SAT 98; BMI 25.7
[2023-12-22 18:19] LABS: Albumin Level 3.4 g/dl (3.5-5.0); Chloride 102 mmol/L (98-107); Potassium 3.8 mmoL/L (3.5-5.1); Sodium 146 mmol/L (136-145)
[2023-12-22 18:22] LABS: Alanine Aminotransferase 18 U/L (12-78); Albumin/Globulin Ratio 1.2 (1.1-1.8); Alkaline Phosphatase 55 U/L (38-126); Aspartate Amino Transferase 19 U/L (17-59); Bilirubin,Total 0.6 mg/dl (0.2-1.3); Blood Urea Nitrogen 16 mg/dl (9-20); Calcium 8.4 mg/dl (8.4-10.2); Creatinine Clearance Estimated 98 mL/min (50-200); Estimated Glomerular Filt Rate 77 ml/min (>60); GFR (African American) 94 ML/MIN (>60); Globulin 2.9 g/dL (1.3-3.2); Glucose 142 mg/dl (74-100); Total Protein,Serum 6.3 g/dl (6.3-8.2)
[2023-12-22 18:23] LABS: INR 1.03 (0.9-1.1); Prothrombin Time 11.5 seconds (10.1-12.5)
--- NOTE | 2023-12-22 18:30 | ECG_ITS ---
APPROVED REPORT Exam: Resting ECG HR:101 bpm ECG Measurements Heart Rate 101 AXES [place] 144 P 95 QRSd 98 QRS 131 QT 339 T 73 QTc 397 Conclusion SINUS TACHYCARDIA INCOMPLETE RIGHT BUNDLE BRANCH BLOCK [90+ ms QRS DURATION, TERMINAL R IN V1/V2, 40+ ms S IN I/aVL/V4/V5/V6] RIGHT VENTRICULAR HYPERTROPHY [SOME/ALL OF: PROMINENT R IN V1, LATE TRANSITION, RAD, SUNNY, SSS] NONSPECIFIC T-WAVE ABNORMALITY ABNORMAL ECG UNCONFIRMED REPORT Electronically signed by : Ananth Sylvester, 12/22/2023 23:19:46
--- NOTE | 2023-12-22 18:40 | PC.NURSE ---
critical lab reported to karishma clark [facility]
[2023-12-22 18:41] LABS: Anion Gap 4.8 mEq/L (5-15); Carbon Dioxide 43 mmol/L (22.0-30.0)
--- NOTE | 2023-12-22 18:44 | PC.NURSE ---
pt back to room from ct
[2023-12-22] MEDS: 0.9 % SODIUM CHLORIDE 50 ML VIAL IV (18:50)
[2023-12-22] MEDS: SODIUM CHLORIDE 0.9% 10ML SYR (RAD ONLY) 10 ML IV (18:50)
[2023-12-22] MEDS: IOPAMIDOL-370 (76%);100ML BOTTLE 80 ML IV (18:50)
[2023-12-22 18:51] VITALS: BP 124/67; PULSE 107; RESP 16; O2SAT 92
[2023-12-22 20:10] VITALS: BP 126/71; PULSE 99; RESP 20; TEMP 37; O2SAT 92
--- NOTE | 2023-12-22 20:11 | PC.NURSE ---
Made a call to family to make aware of pt being discharged
--- NOTE | 2023-12-22 20:17 | PC.NURSE ---
Respiratory panel sent at 2016: Radiology in room at 2017
== END 2023-12-22 20:05 | disposition home or self-care (01) ==
PROVIDERS: Physician Assistant; Emergency Provider Student in an Organized Health Care Education/Training Program
DX: K62.5 Hemorrhage of anus and rectum (principal)
CPT/HCPCS: 74174; 80053; 85025; 85610; 86850; 93005; J7120; Q9967

== ENCOUNTER 2023-12-22 22:07 | Inpatient (IN) | payer MEDICAID, SELFPAY ==
--- NOTE | 2023-12-22 22:00 | ECG_ITS ---
APPROVED REPORT Exam: Resting ECG HR:101 bpm ECG Measurements Heart Rate 101 AXES [place] 147 P 82 QRSd 112 QRS 99 QT 368 T 42 QTc 426 Conclusion SINUS TACHYCARDIA RIGHT BUNDLE BRANCH BLOCK [120+ ms QRS DURATION, UPRIGHT V1, 40+ ms S IN I/aVL/V4/V5/V6] ABNORMAL ECG Electronically signed by : LAKESHA RYDER, 12/24/2023 18:07:53
[2023-12-22 22:08] VITALS: BP 102/69; PULSE 98; RESP 28; TEMP 36.6; O2SAT 99; BMI 25.9; BMI 39.5
--- NOTE | 2023-12-22 22:09 | XR_ITS ---
PROCEDURE INFORMATION: Exam: XR Chest Exam date and time: 12/22/2023 10:13 PM Age: 58 years old Clinical indication: Shortness of breath; Additional info: SOA TECHNIQUE: Imaging protocol: Radiologic exam of the chest. Views: 1 view. COMPARISON: CR XR CHEST PORTABLE 12/06/2023 5:53 AM FINDINGS: Lungs: There is mild coarsening of the bronchovascular markings with hyperinflation suggesting underlying obstructive airways disease. Pleural spaces: No large effusion or pneumothorax. Heart/Mediastinum: Stable cardiac and mediastinal contours. Bones/joints: No evidence of acute osseous abnormalities within the visualized portions of the thoracic spine and ribs. Osseous structures appear appropriate for patient age. IMPRESSION: No dense parenchymal consolidation, pleural effusion, or pneumothorax.
[2023-12-22 22:10] VITALS: RESP 22; RESP 23
[2023-12-22] MEDS: IPRATROPIUM/ALBUTEROL 3 ML NEB IH (22:10)
--- NOTE | 2023-12-22 22:14 | CT_ITS ---
PROCEDURE INFORMATION: Exam: CTA Neck With Contrast Exam date and time: 12/22/2023 11:56 PM Age: 58 years old Clinical indication: Other: AMS; Additional info: Sudden change in mental status, non focal TECHNIQUE: Imaging protocol: Computed tomographic angiography of the neck with contrast. Exam focused on the cervical segments of the vasculature. 3D rendering (Not supervised by radiologist): MIP and/or 3D reconstructed images were created by the technologist. Radiation optimization: All CT scans at this facility use at least one of these dose optimization techniques: automated exposure control; mA and/or kV adjustment per patient size (includes targeted exams where dose is matched to clinical indication); or iterative reconstruction. Contrast material: ISOVUE; Contrast volume: 60 ml; Contrast route: INTRAVENOUS (IV); COMPARISON: 1. CT ANGIO HEAD 12/22/2023 11:[address] ANGIO CHEST PE PROTOCOL 11/15/2021 3:[address] HEAD/BRAIN WO CON 12/22/2023 11:56 PM FINDINGS: Right common carotid artery: There is moderate atherosclerotic disease of the right carotid bulb with approximately 50% stenosis of the right internal carotid artery (image 49 series 3). Right internal carotid artery: See Right common carotid artery finding. Right external carotid artery: No occlusion or stenosis of the origin. Left common carotid artery: There is moderate atherosclerotic disease of the left carotid bulb with approximately 60% stenosis of the left internal carotid artery (image 49 series 3). Left internal carotid artery: See Left common carotid artery finding. Left external carotid artery: No occlusion or stenosis of the origin. Right vertebral artery: No stenosis. No dissection or occlusion. Left vertebral artery: No stenosis. No dissection or occlusion. Soft tissues: Normal. No significant soft tissue swelling. Bones/joints: No acute fracture. IMPRESSION: 1. There is moderate atherosclerotic disease of the right carotid bulb with approximately 50% stenosis of the right internal carotid artery (image 49 series 3). 2. There is moderate atherosclerotic disease of the left carotid bulb with approximately 60% stenosis of the left internal carotid artery (image 49 series 3). REFERENCES: NASCET CRITERIA. The degree of stenosis in the cervical segment of the internal carotid artery is based on NASCET criteria. Normal is no stenosis. Mild is less than 50% stenosis. Moderate is 50-69% stenosis. Severe is 70% to 99% stenosis. Total occlusion is no detectable patent lumen.
--- NOTE | 2023-12-22 22:14 | CT_ITS ---
PROCEDURE INFORMATION: Exam: CTA Chest With Contrast Exam date and time: 12/23/2023 12:01 AM Age: 58 years old Clinical indication: Dyspnea TECHNIQUE: Imaging protocol: Computed tomographic angiography of the chest with contrast. Exam focused on the arteries. 3D rendering (Not supervised by radiologist): MIP and/or 3D reconstructed images were created by the technologist. Radiation optimization: All CT scans at this facility use at least one of these dose optimization techniques: automated exposure control; mA and/or kV adjustment per patient size (includes targeted exams where dose is matched to clinical indication); or iterative reconstruction. Contrast material: ISOVUE; Contrast volume: 60 ml; Contrast route: INTRAVENOUS (IV); COMPARISON: 1. CT ANGIO CHEST PE PROTOCOL 11/15/2021 3:[address] CHEST WO CON 10/17/2023 7:[address] CHEST WO CON 07/01/2023 1:57 PM FINDINGS: Pulmonary arteries: There is dilation of the main pulmonary artery as well as the major branch pulmonary arteries. This may reflect underlying pulmonary hypertension. There is no evidence for clinically relevant pulmonary arterial filling defect. Tiny distal filling defects may be present but are of dubious clinical significance. Aorta: There is atherosclerotic disease of the visualized aorta and its major branch vessels. Trachea: There are some impacted airways in the lower lobe with a few small secretions. Lungs: There are scattered areas of emphysema throughout the lungs. Scattered areas of bronchial wall thickening which are likely chronic inflammatory. A few areas of subpleural reticulation are noted, nonspecific. There is moderate retained secretions throughout the trachea and mainstem bronchi with some parenchymal collapsed in the left lower lobe possibly reflecting aspiration pneumonitis. Pleural spaces: Unremarkable. No pneumothorax. No pleural effusion. Heart: Unremarkable. No cardiomegaly. No pericardial effusion. Lymph nodes: There are calcified mediastinal lymph nodes likely reflecting prior granulomatous disease. Prominent mediastinal nodes mild coronary simple appearing right hepatic lobe cyst is noted. Spleen: There are multiple calcifications in the spleen most likely reflects small granulomas. Bones/joints: There is diffuse degenerative disease of the visualized osseous structures. Soft tissues: There is bilateral gynecomastia. IMPRESSION: 1. There is moderate retained secretions throughout the trachea and mainstem bronchi with some parenchymal collapsed in the left lower lobe possibly reflecting aspiration pneumonitis. 2. Findings which suggest underlying pulmonary arterial hypertension. 3. No evidence for clinically relevant pulmonary arterial filling defect. COMMENTS: The presence of pulmonary emphysema on CT is an independent risk factor for lung cancer. In the absence of a history or active diagnosis of lung cancer, it is recommended that this patient with emphysema be evaluated for enrollment in a low dose CT lung cancer screening program.
--- NOTE | 2023-12-22 22:14 | CT_ITS ---
PROCEDURE INFORMATION: Exam: CTA Head With Contrast, Arteriography Exam date and time: 12/22/2023 11:56 PM Age: 58 years old Clinical indication: Other: AMS; Additional info: Sudden change in mental status, non focal TECHNIQUE: Imaging protocol: Computed tomographic angiography of the head with contrast. Exam focused on the arteries. 3D rendering (Not supervised by radiologist): MIP and/or 3D reconstructed images were created by the technologist. Radiation optimization: All CT scans at this facility use at least one of these dose optimization techniques: automated exposure control; mA and/or kV adjustment per patient size (includes targeted exams where dose is matched to clinical indication); or iterative reconstruction. Contrast material: ISOVUE; Contrast volume: 60 ml; Contrast route: INTRAVENOUS (IV); COMPARISON: 1. CT HEAD/BRAIN WO CON 12/22/2023 11:[address] ANGIO NECK 12/22/2023 11:56 PM FINDINGS: ANTERIOR CIRCULATION: Right internal carotid artery: Intracranial segment is patent with no significant stenosis. No aneurysm. Right middle cerebral artery: No occlusion or significant stenosis. No aneurysm. Right anterior cerebral artery: No occlusion or significant stenosis. No aneurysm. Left internal carotid artery: Intracranial segment is patent with no significant stenosis. No aneurysm. Left middle cerebral artery: No occlusion or significant stenosis. No aneurysm. Left anterior cerebral artery: No occlusion or significant stenosis. No aneurysm. POSTERIOR CIRCULATION: Right vertebral artery: No occlusion or significant stenosis. No aneurysm. Left vertebral artery: No occlusion or significant stenosis. No aneurysm. Basilar artery: No occlusion or significant stenosis. No aneurysm. Right posterior cerebral artery: No occlusion or significant stenosis. No aneurysm. Left posterior cerebral artery: No occlusion or significant stenosis. No aneurysm. Brain: No definite mass, mass effect, or midline shift. Cerebral ventricles: No ventriculomegaly. Bones/joints: Unremarkable. No acute fracture. Soft tissues: There is circumferential mucosal thickening in the left maxillary sinus. IMPRESSION: No large vessel stenosis or occlusion.
--- NOTE | 2023-12-22 22:14 | CT_ITS ---
PROCEDURE INFORMATION: Exam: CT Head Without Contrast Exam date and time: 12/22/2023 11:56 PM Age: 58 years old Clinical indication: Altered mental status/memory loss; Additional info: Sudden change in mental status, non focal TECHNIQUE: Imaging protocol: Computed tomography of the head without contrast. Radiation optimization: All CT scans at this facility use at least one of these dose optimization techniques: automated exposure control; mA and/or kV adjustment per patient size (includes targeted exams where dose is matched to clinical indication); or iterative reconstruction. COMPARISON: 1. CT ANGIO HEAD 12/22/2023 11:[address] ANGIO NECK 12/22/2023 11:56 PM FINDINGS: Brain: Normal. No hemorrhage. Unremarkable white matter. No mass effect. Cerebral ventricles: No ventriculomegaly. Paranasal sinuses: Visualized sinuses are unremarkable. No fluid levels. Mastoid air cells: Visualized mastoid air cells are well aerated. Bones: Unremarkable. No acute fracture. Soft tissues: Unremarkable. IMPRESSION: No acute intracranial abnormality.
[2023-12-22] MEDS: METHYLPREDNISOLONE SOD SUCC 125MG VIAL 125 MG IV (22:17)
[2023-12-22] MEDS: MAGNESIUM SULFATE IN WATER 2 GM/50 ML PIGGYBACK IV (22:18)
--- NOTE | 2023-12-22 22:18 | ED_ITS ---
Discharge Plan Disposition Patient Disposition: Admitted Condition: Fair Clinical Impressions Clinical Impression: Acute encephalopathy, Acute lower gastrointestinal bleeding, Acute respiratory distress, Acute exacerbation of chronic obstructive pulmonary disease, Acute respiratory failure with hypoxia and hypercarbia Discharge ED Provider: Juan Luis Chong HPI <Karan Sylvester MD - Last Filed: 12/22/23 23:18> General Chief Complaint: Shortness of Breath/Dyspnea Stated Complaint: Respiratory distress Time Seen by Provider: 12/22/23 22:14 History of Present Illness HPI narrative: Patient is a 58-year-old male who was just discharged from our emergency department for a lower gastrointestinal bleed presents with respiratory distress. He was recently admitted for pneumonia but was in the emergency department earlier today for what he described as melena for the last year abdominal discomfort and lower gastrointestinal bleeding. Had a CT angio of the abdomen which was unremarkable and he had what appeared to be bleeding external hemorrhoids that were hemostatic could not rule out a malignancy in that area but was good to have outpatient follow-up. No worsening bleeding since that time. His girlfriend called EMS for respiratory distress. They stated that he was dusky and having a hard time breathing and placed him on a nonrebreather oxygen saturations were in the mid 80s on 4 L. They state that his mental status improved but that he was minimally responsive upon being seen. Earlier in the emergency department and serial assessments he had no respiratory distress or respiratory symptoms whatsoever he was awake alert oriented and this is a significant change. Remainder of current history is unable to be obtained secondary to patient's clinical status. Related Data Home Medications ?Medication ?Instructions ?Recorded ?Confirmed oxygen-air delivery systems 07/25/22 12/02/23 Previous Rx's ?Medication ?Instructions ?Recorded aspirin 81 mg tablet,delayed 81 mg PO DAILY #30 tabs 12/28/22 release (Adult Aspirin Regimen) metoprolol succinate 25 mg 12.5 mg (1/2 x 25 mg) PO DAILY #30 12/28/22 tablet,extended release 24 hr tabs (Toprol XL) ergocalciferol (vitamin D2) 1,250 50,000 unit PO WEEKLY Supplement 01/01/23 mcg (50,000 unit) capsule #10 caps atorvastatin 40 mg tablet See Rx Instructions .Route 07/15/23 .COMPLEX #30 tabs fluoxetine 20 mg capsule 20 mg PO DAILY 30 days #30 caps 07/29/23 prasugrel 10 mg tablet (Effient) 10 mg PO DAILY 90 days #90 tabs 08/19/23 fluticasone fur. 100 mcg-umeclid 1 inh inhalation DAILY 90 days #90 09/23/23 62.5 mcg-vilant 25 mcg ea inhalat.powder (Trelegy Ellipta) amitriptyline 25 mg tablet 25 mg PO HS #30 tabs 10/30/23 diazepam 10 mg tablet 10 mg PO BID PRN anxiety #60 tabs 10/30/23 methylnaltrexone 150 mg tablet 450 mg (3 x 150 mg) PO DAILY #90 10/30/23 tabs ipratropium 0.5 mg-albuterol 3 mg 3 ml inhalation Q4H PRN wheezing 12/06/23 (2.5 mg base)/3 mL nebulization #180 mL soln nicotine 21 mg/24 hr daily 1 patch transdermal DAILY #28 ea 12/06/23 transdermal patch albuterol sulfate 90 mcg/actuation See Rx Instructions .Route 12/10/23 aerosol inhaler (Ventolin HFA) .COMPLEX #18 grams bupropion HCl 150 mg 24 hr tablet, See Rx Instructions .Route 12/10/23 extended release .COMPLEX #30 tabs buspirone 5 mg tablet See Rx Instructions .Route 12/10/23 .COMPLEX #60 tabs ipratropium 0.5 mg-albuterol 3 mg See Rx Instructions .Route 12/10/23 (2.5 mg base)/3 mL nebulization .COMPLEX #180 mL soln oxycodone 10 mg tablet 10 mg PO QID PRN pain 30 days #120 12/10/23 tabs sodium chloride 0.65 % nasal spray See Rx Instructions .Route 12/16/23 aerosol (Hunker Saline) .COMPLEX #50 mL amoxicillin 875 mg-potassium 1 tab PO BID 14 days #28 tabs 12/19/23 clavulanate 125 mg tablet prednisone 10 mg tablets in a dose See Rx Instructions PO PER PKG DIR 12/19/23 pack #21 tabs docusate sodium 100 mg capsule 100 mg PO BID #60 caps 12/22/23 polyethylene glycol 3350 17 17 g PO DAILY #510 grams 12/22/23 gram/dose oral powder (Miralax) Allergies Allergy/AdvReac Type Severity Reaction Status Date / Time aspirin [ASPIRIN] Allergy Mild Verified 12/02/23 11:57 codeine [CODEINE] Allergy Mild Verified 12/02/23 11:57 ibuprofen [IBUPROFEN] Allergy Unknown Verified 12/02/23 11:57 acetaminophen [From Tylenol] Allergy Verified 12/02/23 11:57 tramadol Allergy Verified 12/02/23 11:57 PFSH <Karan Sylvester MD - Last Filed: 12/22/23 23:18> [facility] Disclaimer: The information contained in this section may have been updated after the patient was seen, as this information can be updated by other users. 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 He does have multiple nodules in the lung. He also has severe COPD. Initially in October this patient had no pulmonary nodules however in June 2021 and then 2023 there were new nodules noted. This along with the abnormalities found on the PET scan is obviously very concerning see below. Surgical History History of repair of ACL History of colonoscopy Family History Other Alcohol abuse Cancer Coronary artery disease Diabetes Emphysema lung Social History Smoking Status: Current every day smoker tobacco type: cigarettes packs per day: 2 second hand exposure: Yes alcohol intake: former substance use type: denies use current occupational status: disabled Travel in the last 8 weeks: None household members: friend(s) housing: house <Karan Sylvester MD - Last Filed: 12/22/23 23:18> ROS Obtained: Yes All systems reviewed & no additional complaints except as documented Physical Exam <Karan Sylvester MD - Last Filed: 12/22/23 23:18> General General appearance: alert and lethargic (Somnolent arousable and answering some questions and following commands) Respiratory Respiratory exam: Present other (Diffuse expiratory wheezing oxygen saturations 100% on nonrebreather mild tachypnea) Cardiovascular Cardiovascular exam: Present regular rate Abdominal Exam Abdominal exam: Present soft and distention; Absent tenderness Neurological Exam Neurological exam: Present other (GCS of 14 nonfocal neurologic exam) HEART Score <Karan Sylvester MD - Last Filed: 12/22/23 23:18> HEART Score HEART Score assessment performed?: Yes History (anamnesis): Slightly suspicious ECG: Non-specific disturbance Age: 45-65 years Risk factors: 1-2 risk factors Troponin: </= normal limit HEART Score: 3 <Juan Luis Chong MD - Last Filed: 12/23/23 02:09> HEART Score HEART Score: 3 Critical Care <Karan Sylvester MD - Last Filed: 12/22/23 23:18> Critical Care Time Critical Care Time: Yes Attestation: On 12/22/23, the high probability of a clinically significant, sudden or life threatening deterioration of the following system(s) required my full and direct attention, intervention and personal management. The time I documented below is in addition to time spent performing reported procedures but includes the following listed in this critical care notation. Total Time Total Critical Care Time: 35 Medical Decision Making <Karan Sylvester MD - Last Filed: 12/22/23 23:18> [place] Inquiry Pt receiving controlled substance: No Vital Signs Vital Signs: 12/22/23 22:08 12/22/23 23:15 12/22/23 23:15 Temperature 97.8 F Temperature Source Axillary Pulse Rate 96 H 97 H Pulse Rate [Right Brachial] 98 H Respiratory Rate 28 H 27 H 22 Blood Pressure 111/74 109/77 L Blood Pressure [Right Arm] 102/69 L Blood Pressure Mean 85 Blood Pressure Mean [Right Arm] 80 Blood Pressure Source Blood Pressure Source [Right Arm] Automatic Cuff Blood Pressure Position Blood Pressure Position [Right Arm] Supine 02 Sat by Pulse Oximetry 99 100 100 Oxygen Delivery Method Non-Rebreather 12/22/23 23:15 12/22/23 23:30 12/23/23 00:09 Temperature Temperature Source Pulse Rate 97 H 81 94 H Pulse Rate [Right Brachial] Respiratory Rate 22 13 Blood Pressure 102/69 L 111/74 Blood Pressure [Right Arm] Blood Pressure Mean 76 Blood Pressure Mean [Right Arm] Blood Pressure Source Blood Pressure Source [Right Arm] Blood Pressure Position Blood Pressure Position [Right Arm] 02 Sat by Pulse Oximetry 98 100 Oxygen Delivery Method 12/23/23 00:47 Temperature 98.7 F Temperature Source Oral Pulse Rate 78 Pulse Rate [Right Brachial] Respiratory Rate 18 Blood Pressure 123/92 H Blood Pressure [Right Arm] Blood Pressure Mean Blood Pressure Mean [Right Arm] Blood Pressure Source Automatic Cuff Blood Pressure Source [Right Arm] Blood Pressure Position Supine Blood Pressure Position [Right Arm] 02 Sat by Pulse Oximetry Oxygen Delivery Method BiPAP Lab Data Lab results reviewed: Yes I reviewed the patient's lab results. Labs: Lab Results 12/22/23 22:17: WBC 9.4 D, RBC 4.46 L, Hgb 13.0 L, Hct 45.2, MCV 101.4 H, MCH 29.3, MCHC 28.9 L, RDW 14.6, Plt Count 274, MPV 9.2, Neut % (Auto) 65.9, Lymph % (Auto) 26.8, Bay % (Auto) 5.6, Eos % (Auto) 0.9, Baso % (Auto) 0.9, Neut # (Auto) 6.2, Lymph # (Auto) 2.5, Bay # (Auto) 0.5, Eos # (Auto) 0.1, Baso # (Auto) 0.1, PT 12.4, INR 1.12 H, APTT 23.1, Sodium 146 H, Potassium 4.3, Chloride 102, Carbon Dioxide 40 H, Anion Gap 8.3, BUN 15, Creatinine 1.20, Estimated Creat Clear 115, Estimated GFR 63, Est GFR ( Amer) 76, Glucose 164 H, Lactate 2.8 H, Calcium 8.3 L, Total Bilirubin 0.6, AST 27 D, ALT 23 D, Alkaline Phosphatase 53, Troponin I 0.02, Total Protein 6.2 L, Albumin 3.4 L, Globulin 2.8, Albumin/Globulin Ratio 1.2, TSH 2.15, Salicylates < 1.0 L, A cetaminophen < 10 L, Plasma/Serum Alcohol < 10 12/22/23 22:26: VBG pH 7.17 L, VBG pCO2 91.7 H, VBG pO2 42.2 H, VBG HCO3 32.5 H, VBG Total CO2 35.4 H, VBG O2 Saturation 74.4 H, VBG Base Excess 4.0 H, VBG Lactic Acid 2.6 H 12/22/23 23:20: Ammonia 52 H 12/22/23 : SARS-CoV-2 (PCR) Not detected, Influenza A Untype (PCR) Not detected, Influenza Type B (PCR) Not detected 12/22/23 22:17 12/23/23 01:30 Response Orders (Tests/Meds): ED MEDICATIONS Generic Name Dose Route Start Last Admin Trade Name Freq PRN Reason Stop Dose Admin Albuterol Sulfate 20 mg 12/23/23 00:36 12/22/23 22:25 Albuterol 0.083% 2.5 Mg/3 Ml [facility] 12/23/23 00:37 20 mg ONCE ONE Administration Albuterol/Ipratropium 3 ml 12/23/23 02:00 Ipratropium/Albuterol 3 Ml [facility] 01/22/24 01:59 Q4RT [facility] Docusate Sodium 100 mg 12/23/23 09:00 Docusate Sodium 100 Mg Capsule PO 01/22/24 08:59 DAILY [facility] Enoxaparin Sodium 40 mg 12/23/23 09:00 Enoxaparin 40mg/0.4ml Syringe SQ 01/22/24 08:59 DAILY [facility] Sodium Chloride 1,000 mls @ 50 mls/hr 12/23/23 01:15 Sod Chlor 0.9% 1000ml Bag IV 01/22/24 01:14 .Q20H [facility] Nicotine 21 mg 12/23/23 09:00 Nicotine 21mg/24hr Patch TD 01/22/24 08:59 DAILY [facility] Ondansetron HCl 4 mg 12/23/23 01:04 Ondansetron 4mg/2ml Vial IV 01/22/24 01:03 Q8HP PRN Nausea Pantoprazole Sodium 40 mg 12/23/23 09:00 Pantoprazole 40mg Tablet PO 01/22/24 08:59 DAILY [facility] Sodium Chloride 10 ml 12/23/23 00:09 12/23/23 00:10 Sodium Chloride 0.9% 10ml Syr (Rad Only) IV 01/22/24 00:08 10 ml NEEDED PRN Administration Maintain IV Site Sodium Chloride 10 ml 12/23/23 01:04 Sodium Chloride 0.9% 10ml Flush Syringe IV 01/22/24 01:03 NEEDED PRN Maintain IV Site Discontinued Medications Generic Name Dose Route Start Last Admin Trade Name Katey PRN Reason Stop Dose Admin Albuterol/Ipratropium 9 ml 12/22/23 22:09 Ipratropium/Albuterol 3 Ml [facility] 12/22/23 22:10 ONCE ONE Albuterol/Ipratropium 3 ml 12/22/23 22:14 12/22/23 22:10 Ipratropium/Albuterol 3 Ml [facility] 12/22/23 22:15 3 ml ONCE ONE Administration Magnesium Sulfate 2 gm in 50 mls @ 50 mls/hr 12/22/23 22:14 12/22/23 22:18 Magnesium Sulfate 2gm/50ml Premix IV 12/22/23 23:13 50 mls/hr ONCE ONE Administration Iopamidol 120 ml 12/23/23 00:09 12/23/23 00:10 Iopamidol-370 (76%);100ml Bottle IV 12/23/23 00:10 120 ml ONCE ONE Administration Methylprednisolone Sodium Succinate 125 mg 12/22/23 22:09 12/22/23 22:17 Methylprednisolone Sod Succ 125mg Vial IV 12/22/23 22:10 125 mg ONCE ONE Administration Methylprednisolone Sodium Succinate 125 mg 12/22/23 22:14 12/22/23 22:29 Methylprednisolone Sod Succ 125mg Vial IV 12/22/23 22:15 Not Given ONCE ONE Sodium Chloride 100 ml 12/23/23 00:09 12/23/23 00:10 0.9 % Sodium Chloride 50 Ml Vial IV 12/23/23 00:10 100 ml ONCE ONE Administration ORDERS Category Date Time Status CT angio chest PE protocol Stat Cat Scan 12/22/23 22:[address] angio head Stat Cat Scan 12/22/23 22:[address] angio neck Stat Cat Scan 12/22/23 22:[address] head/brain wo con Stat Cat Scan 12/22/23 22:14 Completed CXR --portable [XR chest portable] Stat Exams 12/22/23 22:09 Completed Acetaminophen Stat Lab 12/22/23 22:17 Completed Ammonia Stat Lab 12/22/23 23:20 Completed CBC w/Auto Diff [Complete Blood Count Auto Diff] Stat Lab 12/22/23 22:17 Completed CMP [Comprehensive Metabolic Panel] Stat Lab 12/22/23 22:17 Completed Ethanol [Ethyl Alcohol] Stat Lab 12/22/23 22:17 Completed Lactic Acid Stat Lab 12/22/23 22:17 Completed PT/PTT Stat Lab 12/22/23 22:17 Completed Rapid PCR Covid and Flu A/B Stat Lab 12/22/23 Completed Salicylate Stat Lab 12/22/23 22:17 Completed TSH [Thyroid Stimulating Hormone] Stat Lab 12/22/23 22:17 Completed Trop I [Troponin I] Stat Lab 12/22/23 22:17 Completed Troponin I Q3H Lab 12/23/23 00:52 Completed Troponin I Q3H Lab 12/23/23 04:30 Ordered UA [Urinalysis and Microscopic] Stat Lab 12/22/23 22:16 Ordered UDS [Drug Screen,Urine] Stat Lab 12/22/23 22:15 Ordered Blood Culture Stat Micro 12/22/23 23:30 Received Venous Blood Gas Routine RT 12/22/23 22:26 Completed ECG Data Tracing #1: Attestation: I reviewed this ECG and interpreted as documented below: ECG Narrative: Ventricular rate 101 sinus tachycardia there is a right bundle branch block no acute ischemic changes noted no other significant duction abnormalities noted MDM Narrative Medical Decision Narrative: 58-year-old with above history and physical. He had extensive valuation earlier today for significant lower gastrointestinal bleed with a normal H&H normal CT angio of the abdomen pelvis and hemostatic external hemorrhoids versus possible rectal malignancy that was going to be worked up outpatient. That continues to be hemostatic no ongoing bleeding. Abdominal exam is benign. Patient had no acute respiratory symptoms on my evaluation or the SHANICE's evaluation earlier today on serial assessments and he is acutely changed both from a mental status and respiratory standpoint. He did have an elevated bicarb earlier today which is consistent with chronic COPD. No acute respiratory distress or respiratory symptoms at that time. He has had sudden and significant worsening in his mental status as well as his respiratory status. Differential includes pulmonary embolism, COPD exacerbation, alcohol or drug intake, stroke etc. Will get a CT PE as well as CT head and CT angio head and neck in addition to toxicologic and metabolic and infectious workup. Continuous nebs BiPAP and Solu-Medrol have been administered and will reassess. Reassessment patient's blood gas shows significant acute hypercarbia with a pH of less than 7.2 with pCO2 that significantly elevated. Again patient had a normal respiratory exam just a few hours ago he did have an elevated bicarb to possible he was brewing some acute hypercarbic respiratory failure but other things on differential still includes stroke or subacute cause from apnea such as drug use. Scans are still pending. Patient is on BiPAP is stable is still arousable and interactive no need for intubation at the moment. Care will be transitioned to Dr. Chong at 11:20 PM <Juan Luis Chong MD - Last Filed: 12/23/23 02:09> Medical Records Medical records reviewed: Yes I reviewed the patient's medical records. Vital Signs Vital Signs: 12/22/23 22:08 12/22/23 23:15 12/22/23 23:15 Temperature 97.8 F Temperature Source Axillary Pulse Rate 96 H 97 H Pulse Rate [Right Brachial] 98 H Respiratory Rate 28 H 27 H 22 Blood Pressure 111/74 109/77 L Blood Pressure [Right Arm] 102/69 L Blood Pressure Mean 85 Blood Pressure Mean [Right Arm] 80 Blood Pressure Source Blood Pressure Source [Right Arm] Automatic Cuff Blood Pressure Position Blood Pressure Position [Right Arm] Supine 02 Sat by Pulse Oximetry 99 100 100 Oxygen Delivery Method Non-Rebreather 12/22/23 23:15 12/22/23 23:30 12/23/23 00:09 Temperature Temperature Source Pulse Rate 97 H 81 94 H Pulse Rate [Right Brachial] Respiratory Rate 22 13 Blood Pressure 102/69 L 111/74 Blood Pressure [Right Arm] Blood Pressure Mean 76 Blood Pressure Mean [Right Arm] Blood Pressure Source Blood Pressure Source [Right Arm] Blood Pressure Position Blood Pressure Position [Right Arm] 02 Sat by Pulse Oximetry 98 100 Oxygen Delivery Method 12/23/23 00:47 Temperature 98.7 F Temperature Source Oral Pulse Rate 78 Pulse Rate [Right Brachial] Respiratory Rate 18 Blood Pressure 123/92 H Blood Pressure [Right Arm] Blood Pressure Mean Blood Pressure Mean [Right Arm] Blood Pressure Source Automatic Cuff Blood Pressure Source [Right Arm] Blood Pressure Position Supine Blood Pressure Position [Right Arm] 02 Sat by Pulse Oximetry Oxygen Delivery Method BiPAP Lab Data Labs: Lab Results 12/22/23 22:17: WBC 9.4 D, RBC 4.46 L, Hgb 13.0 L, Hct 45.2, MCV 101.4 H, MCH 29.3, MCHC 28.9 L, RDW 14.6, Plt Count 274, MPV 9.2, Neut % (Auto) 65.9, Lymph % (Auto) 26.8, Bay % (Auto) 5.6, Eos % (Auto) 0.9, Baso % (Auto) 0.9, Neut # (Auto) 6.2, Lymph # (Auto) 2.5, Bay # (Auto) 0.5, Eos # (Auto) 0.1, Baso # (Auto) 0.1, PT 12.4, INR 1.12 H, APTT 23.1, Sodium 146 H, Potassium 4.3, Chloride 102, Carbon Dioxide 40 H, Anion Gap 8.3, BUN 15, Creatinine 1.20, Estimated Creat Clear 115, Estimated GFR 63, Est GFR ( Amer) 76, Glucose 164 H, Lactate 2.8 H, Calcium 8.3 L, Total Bilirubin 0.6, AST 27 D, ALT 23 D, Alkaline Phosphatase 53, Troponin I 0.02, Total Protein 6.2 L, Albumin 3.4 L, Globulin 2.8, Albumin/Globulin Ratio 1.2, TSH 2.15, Salicylates < 1.0 L, A cetaminophen < 10 L, Plasma/Serum Alcohol < 10 12/22/23 22:26: VBG pH 7.17 L, VBG pCO2 91.7 H, VBG pO2 42.2 H, VBG HCO3 32.5 H, VBG Total CO2 35.4 H, VBG O2 Saturation 74.4 H, VBG Base Excess 4.0 H, VBG Lactic Acid 2.6 H 12/22/23 23:20: Ammonia 52 H 12/22/23 : SARS-CoV-2 (PCR) Not detected, Influenza A Untype (PCR) Not detected, Influenza Type B (PCR) Not detected Response Orders (Tests/Meds): ED MEDICATIONS Generic Name Dose Route Start Last Admin Trade Name Freq PRN Reason Stop Dose Admin Albuterol Sulfate 20 mg 12/23/23 00:36 12/22/23 22:25 Albuterol 0.083% 2.5 Mg/3 Ml [facility] 12/23/23 00:37 20 mg ONCE ONE Administration Albuterol/Ipratropium 3 ml 12/23/23 02:00 Ipratropium/Albuterol 3 Ml [facility] 01/22/24 01:59 Q4RT [facility] Docusate Sodium 100 mg 12/23/23 09:00 Docusate Sodium 100 Mg Capsule PO 01/22/24 08:59 DAILY [facility] Enoxaparin Sodium 40 mg 12/23/23 09:00 Enoxaparin 40mg/0.4ml Syringe SQ 01/22/24 08:59 DAILY [facility] Sodium Chloride 1,000 mls @ 50 mls/hr 12/23/23 01:15 Sod Chlor 0.9% 1000ml Bag IV 01/22/24 01:14 .Q20H [facility] Nicotine 21 mg 12/23/23 09:00 Nicotine 21mg/24hr Patch TD 01/22/24 08:59 DAILY [facility] Ondansetron HCl 4 mg 12/23/23 01:04 Ondansetron 4mg/2ml Vial IV 01/22/24 01:03 Q8HP PRN Nausea Pantoprazole Sodium 40 mg 12/23/23 09:00 Pantoprazole 40mg Tablet PO 01/22/24 08:59 DAILY [facility] Sodium Chloride 10 ml 12/23/23 00:09 12/23/23 00:10 Sodium Chloride 0.9% 10ml Syr (Rad Only) IV 01/22/24 00:08 10 ml NEEDED PRN Administration Maintain IV Site Sodium Chloride 10 ml 12/23/23 01:04 Sodium Chloride 0.9% 10ml Flush Syringe IV 01/22/24 01:03 NEEDED PRN Maintain IV Site Discontinued Medications Generic Name Dose Route Start Last Admin Trade Name Freq PRN Reason Stop Dose Admin Albuterol/Ipratropium 9 ml 12/22/23 22:09 Ipratropium/Albuterol 3 Ml [facility] 12/22/23 22:10 ONCE ONE Albuterol/Ipratropium 3 ml 12/22/23 22:14 12/22/23 22:10 Ipratropium/Albuterol 3 Ml [facility] 12/22/23 22:15 3 ml ONCE ONE Administration Magnesium Sulfate 2 gm in 50 mls @ 50 mls/hr 12/22/23 22:14 12/22/23 22:18 Magnesium Sulfate 2gm/50ml Premix IV 12/22/23 23:13 50 mls/hr ONCE ONE Administration Iopamidol 120 ml 12/23/23 00:09 12/23/23 00:10 Iopamidol-370 (76%);100ml Bottle IV 12/23/23 00:10 120 ml ONCE ONE Administration Methylprednisolone Sodium Succinate 125 mg 12/22/23 22:09 12/22/23 22:17 Methylprednisolone Sod Succ 125mg Vial IV 12/22/23 22:10 125 mg ONCE ONE Administration Methylprednisolone Sodium Succinate 125 mg 12/22/23 22:14 12/22/23 22:29 Methylprednisolone Sod Succ 125mg Vial IV 12/22/23 22:15 Not Given ONCE ONE Sodium Chloride 100 ml 12/23/23 00:09 12/23/23 00:10 0.9 % Sodium Chloride 50 Ml Vial IV 12/23/23 00:10 100 ml ONCE ONE Administration ORDERS Category Date Time Status CT angio chest PE protocol Stat Cat Scan 12/22/23 22:[address] angio head Stat Cat Scan 12/22/23 22:[address] angio neck Stat Cat Scan 12/22/23 22:[address] head/brain wo con Stat Cat Scan 12/22/23 22:14 Completed CXR --portable [XR chest portable] Stat Exams 12/22/23 22:09 Completed Acetaminophen Stat Lab 12/22/23 22:17 Completed Ammonia Stat Lab 12/22/23 23:20 Completed CBC w/Auto Diff [Complete Blood Count Auto Diff] Stat Lab 12/22/23 22:17 Completed CMP [Comprehensive Metabolic Panel] Stat Lab 12/22/23 22:17 Completed Ethanol [Ethyl Alcohol] Stat Lab 12/22/23 22:17 Completed Lactic Acid Stat Lab 12/22/23 22:17 Completed PT/PTT Stat Lab 12/22/23 22:17 Completed Rapid PCR Covid and Flu A/B Stat Lab 12/22/23 Completed Salicylate Stat Lab 12/22/23 22:17 Completed TSH [Thyroid Stimulating Hormone] Stat Lab 12/22/23 22:17 Completed Trop I [Troponin I] Stat Lab 12/22/23 22:17 Completed Troponin I Q3H Lab 12/23/23 00:52 Completed Troponin I Q3H Lab 12/23/23 04:30 Ordered UA [Urinalysis and Microscopic] Stat Lab 12/22/23 22:16 Ordered UDS [Drug Screen,Urine] Stat Lab 12/22/23 22:15 Ordered Blood Culture Stat Micro 12/22/23 23:30 Received Venous Blood Gas Routine RT 12/22/23 22:26 Completed MDM Narrative Medical Decision Narrative: 58-year-old with above history and physical. He had extensive valuation earlier today for significant lower gastrointestinal bleed with a normal H&H normal CT angio of the abdomen pelvis and hemostatic external hemorrhoids versus possible rectal malignancy that was going to be worked up outpatient. That continues to be hemostatic no ongoing bleeding. Abdominal exam is benign. Patient had no acute respiratory symptoms on my evaluation or the SHANICE's evaluation earlier today on serial assessments and he is acutely changed both from a mental status and respiratory standpoint. He did have an elevated bicarb earlier today which is consistent with chronic COPD. No acute respiratory distress or respiratory symptoms at that time. He has had sudden and significant worsening in his mental status as well as his respiratory status. Differential includes pulmonary embolism, COPD exacerbation, alcohol or drug intake, stroke etc. Will get a CT PE as well as CT head and CT angio head and neck in addition to toxicologic and metabolic and infectious workup. Continuous nebs BiPAP and Solu-Medrol have been administered and will reassess. Reassessment patient's blood gas shows significant acute hypercarbia with a pH of less than 7.2 with pCO2 that significantly elevated. Again patient had a normal respiratory exam just a few hours ago he did have an elevated bicarb to possible he was brewing some acute hypercarbic respiratory failure but other things on differential still includes stroke or subacute cause from apnea such as drug use. Scans are still pending. Patient is on BiPAP is stable is still arousable and interactive no need for intubation at the moment. Care will be transitioned to Dr. Chong at 11:20 PM Castillo RIOS: I assumed care of the patient at the time of handoff from the prior provider. On reassessment patient has marked symptomatic improvement. He is sleeping but easily arousable and answers questions appropriately. remains on BiPAP. CT imaging independently interpreted by me and shows marked emphysema and possible pneumonitis. No evidence of PE. CT head/CTA head neck showed no evidence of acute stroke or bleeding. Patient altered mental status is most likely result of hypercarbia. Interactive discussion was had with hospitalist on-call for admission for COPD exacerbation and acute hypoxic and hypercarbic respiratory failure.
[2023-12-22] MEDS: ALBUTEROL 0.083% 2.5 MG/3 ML NEB 20 MG IH (22:25)
[2023-12-22 22:27] LABS: VBG HCO3 32.5 mmol/L (23-30); VBG Oxygen Saturation 74.4 % (50-70); VBG PCO2 91.7 mmol/L (35-51); VBG PO2 42.2 mmol/L (28-40); VBG Total CO2 35.4 mmol/L (23-27)
[2023-12-22 22:27] LABS: Basophils # 0.1 K/mm3 (0-0.2); Basophils % 0.9 % (0.1-2.0); Eosinophils # 0.1 K/mm3 (0.0-0.4); Eosinophils % 0.9 % (0.1-12.0); Hematocrit 45.2 % (42.0-52.0); Lymphocytes # 2.5 K/mm3 (0.7-4.5); Lymphocytes % 26.8 % (10-50); Mean Corpuscular HGB Conc 28.9 g/dL (31.8-35.4); Mean Corpuscular Hemoglobin 29.3 pg (27.0-31.2); Mean Corpuscular Volume 101.4 fl (80-94); Mean Platelet Volume 9.2 fl (7.4-10.4); Monocytes # 0.5 K/mm3 (0.1-1.0); Monocytes % 5.6 % (1.7-9.3); Neutrophils # 6.2 K/mm3 (1.8-7.8); Neutrophils % 65.9 % (37.0-80.0); Platelet Count 274 K/mm3 (142-424); Red Blood Count 4.46 M/mm3 (4.60-6.20); Red Cell Distribution Width 14.6 % (11.5-17.5); White Blood Count 9.4 K/mm3 (4.8-10.8)
[2023-12-22 22:28] LABS: Lactate Venous 2.6 mmol/L (0.4-2.0); VBG PH 7.17 mmol/L (7.31-7.41)
[2023-12-22 22:48] LABS: Albumin Level 3.4 g/dl (3.5-5.0); Chloride 102 mmol/L (98-107); Potassium 4.3 mmoL/L (3.5-5.1); Sodium 146 mmol/L (136-145)
[2023-12-22 22:51] LABS: Alanine Aminotransferase 23 U/L (12-78); Albumin/Globulin Ratio 1.2 (1.1-1.8); Alkaline Phosphatase 53 U/L (38-126); Anion Gap 8.3 mEq/L (5-15); Aspartate Amino Transferase 27 U/L (17-59); Bilirubin,Total 0.6 mg/dl (0.2-1.3); Blood Urea Nitrogen 15 mg/dl (9-20); Calcium 8.3 mg/dl (8.4-10.2); Creatinine Clearance Estimated 115 mL/min (50-200); Estimated Glomerular Filt Rate 63 ml/min (>60); Ethyl Alcohol < 10 mg/dl (0-10); GFR (African American) 76 ML/MIN (>60); Globulin 2.8 g/dL (1.3-3.2); Glucose 164 mg/dl (74-100); Total Protein,Serum 6.2 g/dl (6.3-8.2)
[2023-12-22 22:52] LABS: Acetaminophen < 10 ug/ml (10-30); Activated Partial Thrombo Time 23.1 seconds (22.8-30.6); INR 1.12 (0.9-1.1); Prothrombin Time 12.4 seconds (10.1-12.5); Salicylate < 1.0 mg/dL (2.0-20.0)
[2023-12-22 22:58] LABS: Carbon Dioxide 40 mmol/L (22.0-30.0)
[2023-12-22 23:03] LABS: Troponin I 0.02 ng/ml (0.00-0.034)
[2023-12-22 23:07] LABS: Lactic Acid 2.8 mmol/L (0.7-2.1)
[2023-12-22 23:13] LABS: Coronavirus 19, PCR Not Detected (NotDetected); Influenza A, PCR Not Detected (NotDetected); Influenza B, PCR Not Detected (NotDetected)
[2023-12-22 23:15] VITALS: BP 109/77; BP 111/74; PULSE 96; PULSE 97; RESP 22; RESP 27; O2SAT 100
[2023-12-22 23:22] LABS: Thyroid Stimulating Hormone 2.15 uIU/mL (0.465-4.68)
[2023-12-22 23:30] VITALS: BP 102/69; PULSE 81; RESP 22; O2SAT 98
--- NOTE | 2023-12-22 23:41 | PC.NURSE ---
radiology waiting on RT to help transport pt to CT
--- NOTE | 2023-12-22 23:49 | PC.NURSE ---
pt to ct scan
[2023-12-22 23:54] LABS: Ammonia 52 umol/L (9-30)
[2023-12-23] VITALS (24 sets, daily range): BP systolic 111–138; BP diastolic 70–92; PULSE 76–113; RESP 13–26; TEMP 36.2–37.1; O2SAT 90–100; BMI 26.3
--- NOTE | 2023-12-23 00:09 | PC.NURSE ---
patient back from CT, patient hooked up to all monitoring as ordered
[2023-12-23] MEDS: 0.9 % SODIUM CHLORIDE 50 ML VIAL 100 ML IV (00:10)
[2023-12-23] MEDS: SODIUM CHLORIDE 0.9% 10ML SYR (RAD ONLY) 10 ML IV ×2 (00:10→21:41)
[2023-12-23] MEDS: IOPAMIDOL-370 (76%);100ML BOTTLE 120 ML IV (00:10)
--- NOTE | 2023-12-23 00:44 | PC.NURSE ---
Report given to JOHNNY Alas on second floor
--- NOTE | 2023-12-23 01:14 | PC.NURSE ---
Patient arrived to floor via stretcher from ED at 00:57.
[2023-12-23 01:21] LABS: Troponin I 0.03 ng/ml (0.00-0.034)
[2023-12-23 01:47] LABS: Chloride 104 mmol/L (98-107)
[2023-12-23 01:48] LABS: Albumin Level 3.4 g/dl (3.5-5.0); Potassium 4.7 mmoL/L (3.5-5.1); Sodium 143 mmol/L (136-145)
[2023-12-23 01:50] LABS: Blood Urea Nitrogen 16 mg/dl (9-20); Creatinine Clearance Estimated 100 mL/min (50-200); Estimated Glomerular Filt Rate 77 ml/min (>60); GFR (African American) 94 ML/MIN (>60)
[2023-12-23 01:51] LABS: Alanine Aminotransferase 18 U/L (12-78); Albumin/Globulin Ratio 1.2 (1.1-1.8); Alkaline Phosphatase 63 U/L (38-126); Anion Gap 5.7 mEq/L (5-15); Aspartate Amino Transferase 62 U/L (17-59); Bilirubin,Total 1.1 mg/dl (0.2-1.3); Carbon Dioxide 38 mmol/L (22.0-30.0); Globulin 2.9 g/dL (1.3-3.2); Glucose 101 mg/dl (74-100); Total Protein,Serum 6.3 g/dl (6.3-8.2)
--- NOTE | 2023-12-23 01:58 | P.HP_ITS ---
History of Present Illness *Admission Date: 12/23/23 *Reason for visit:: Acute exacerbation of COPD *History of present illness: This patient a long-term smoker showing indication of COPD emphysema on mini exam has been seen in the emergency room approximately 3 times this year for exacerbation of COPD. Much worse at this point in time with venous blood gas showing increased CO2 decreased O2 with a pH down to 7.17. Requiring BiPAP as patient is quite somnolent but can be aroused. Noting that the patient was seen earlier for rectal bleeding which was felt it was hemorrhoidal and that his hemoglobin was normal. Noting on this visit it is noted that his liver function test AST is elevated to 62 with his ammonia level at 52. Per past medical history could not find any indication of alcohol abuse. Patient noted for receiving cardiac stent approximately January of last year with an ejection fraction greater than 50. Patient does not appear to be malnourished but continues per history and he did acknowledge still smoking probably upwards or over 2 packs a day I do agree with the ER physician that the patient needs to be placed in being placed on BiPAP and try to collect these electrolyte abnormalities making sure there is no cardiac event taking place. Potential for some aspiration pneumonia pneumonitis. Patient also noted is having an abnormal PET scan of the colon in the past [facility] Disclaimer: The information contained in this section may have been updated after the patient was seen, as this information can be updated by other users. 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 He does have multiple nodules in the lung. He also has severe COPD. Initially in October this patient had no pulmonary nodules however in June 2021 and then 2023 there were new nodules noted. This along with the abnormalities found on the PET scan is obviously very concerning see below. Surgical History History of repair of ACL History of colonoscopy Family History Other Alcohol abuse Cancer Coronary artery disease Diabetes Emphysema lung Social History (Updated 12/23/23 @ 03:06 by Evette Helms RN) Smoking Status: Current every day smoker tobacco type: cigarettes packs per day: 2 second hand exposure: Yes alcohol intake: former substance use type: denies use current occupational status: disabled Travel in the last 8 weeks: None household members: friend(s) housing: house Review of Systems Review of Systems Review of systems:: unable to obtain Review of systems (narrative): Noting that I was able to arouse the patient but he would answer a few questions but could not get a complete history from him Constitutional Constitutional: Reports fatigue Comments: Patient remaining somnolent during exam and history taking Eyes Eyes: Reports as per HPI ENT Ears, Nose, Mouth, and Throat: Reports as per HPI *Cardiovascular Cardiovascular: Reports as per HPI *Respiratory Respiratory: Reports as per HPI Comments: On BiPAP and oxygen with oxygen supplement while doing the exam *Gastrointestinal Gastrointestinal: Reports system reviewed and no additional complaints, except as documented and Reports as per HPI Comments: Having rectal bleeding seen in the ER approximately an hour and a half earlier was released home with normal hemoglobin and bleeding had stopped *Genitourinary Genitourinary: Reports as per HPI *Musculoskeletal Musculoskeletal: Reports as per HPI Integumentary/Breasts Skin/Breast: Reports as per HPI *Neurologic Neurologic: Reports as per HPI Comments: Patient is arousable does say a few words but goes immediately back to sleep Psychiatric Psychiatric: Reports as per HPI Endocrine Endocrine: Reports as per HPI and Reports fatigue Hematologic/Lymphatic Hematologic/Lymphatic: Reports as per HPI Comments: From today's previous ER visit labs indicate CBC is stable, Allergic/Immunologic Allergic/Immunologic: Reports as per HPI Meds Home Medications and Allergies Home Medications ?Medication ?Instructions ?Recorded ?Confirmed ?Type oxygen-air delivery systems 07/25/22 12/02/23 History aspirin 81 mg tablet,delayed 81 mg PO DAILY #30 tabs 12/28/22 12/23/23 Rx release (Adult Aspirin Regimen) metoprolol succinate 25 mg 12.5 mg (1/2 x 25 mg) PO DAILY #30 12/28/22 12/23/23 Rx tablet,extended release 24 hr tabs (Toprol XL) ergocalciferol (vitamin D2) 1,250 50,000 unit PO WEEKLY Supplement 01/01/23 12/23/23 Rx mcg (50,000 unit) capsule #10 caps prasugrel 10 mg tablet (Effient) 10 mg PO DAILY 90 days #90 tabs 08/19/23 12/23/23 Rx fluticasone fur. 100 mcg-umeclid 1 inh inhalation DAILY 90 days #90 09/23/23 12/23/23 Rx 62.5 mcg-vilant 25 mcg ea inhalat.powder (Trelegy Ellipta) amitriptyline 25 mg tablet 25 mg PO HS #30 tabs 10/30/23 12/23/23 Rx diazepam 10 mg tablet 10 mg PO BID PRN anxiety #60 tabs 10/30/23 12/23/23 Rx methylnaltrexone 150 mg tablet 450 mg (3 x 150 mg) PO DAILY #90 10/30/23 12/02/23 Rx tabs ipratropium 0.5 mg-albuterol 3 mg 3 ml inhalation Q4H PRN wheezing 12/06/23 12/23/23 Rx (2.5 mg base)/3 mL nebulization #180 mL soln nicotine 21 mg/24 hr daily 1 patch transdermal DAILY #28 ea 12/06/23 12/23/23 Rx transdermal patch oxycodone 10 mg tablet 10 mg PO QID PRN pain 30 days #120 12/10/23 12/23/23 Rx tabs amoxicillin 875 mg-potassium 1 tab PO BID 14 days #28 tabs 12/19/23 12/23/23 Rx clavulanate 125 mg tablet prednisone 10 mg tablets in a dose See Rx Instructions PO PER PKG DIR 12/19/23 12/23/23 Rx pack #21 tabs polyethylene glycol 3350 17 17 g PO DAILY #510 grams 12/22/23 12/23/23 Rx gram/dose oral powder (Miralax) albuterol sulfate 90 mcg/actuation 2 puff inhalation Q4HP PRN 12/23/23 12/23/23 History aerosol inhaler (Ventolin HFA) Shortness Of Breath atorvastatin 40 mg tablet 40 mg PO HS 12/23/23 12/23/23 History bupropion HCl 150 mg 24 hr tablet, 150 mg PO DAILY 12/23/23 12/23/23 History extended release buspirone 5 mg tablet 5 mg PO BID 12/23/23 12/23/23 History sodium chloride 0.65 % nasal spray 1 spray intranasal BIDP PRN Dry 12/23/23 12/23/23 History aerosol ([place] Saline) Nasal Passages New Prescriptions to Start Prescriptions: Allergies Allergy/AdvReac Type Severity Reaction Status Date / Time aspirin [ASPIRIN] Allergy Mild Verified 12/02/23 11:57 codeine [CODEINE] Allergy Mild Verified 12/02/23 11:57 ibuprofen [IBUPROFEN] Allergy Unknown Verified 12/02/23 11:57 acetaminophen [From Tylenol] Allergy Verified 12/02/23 11:57 tramadol Allergy Verified 12/02/23 11:57 Exam Data for Last 24 hours Vital signs and Labs for Last 24 Hours: Temp Pulse Resp BP Pulse Ox O2 Del Method FiO2 98.7 F 78 18 123/92 H 100 BiPAP 50 12/23/23 00:47 12/23/23 00:47 12/23/23 00:47 12/23/23 00:47 12/23/23 00:09 12/23/23 00:47 12/23/23 01:13 Laboratory Results - last 24 hr 12/22/23 22:17: WBC 9.4 D, RBC 4.46 L, Hgb 13.0 L, Hct 45.2, MCV 101.4 H, MCH 29.3, MCHC 28.9 L, RDW 14.6, Plt Count 274, MPV 9.2, Neut % (Auto) 65.9, Lymph % (Auto) 26.8, [place] % (Auto) 5.6, Eos % (Auto) 0.9, Baso % (Auto) 0.9, Neut # (Auto) 6.2, Lymph # (Auto) 2.5, [place] # (Auto) 0.5, Eos # (Auto) 0.1, Baso # (Auto) 0.1, PT 12.4, INR 1.12 H, APTT 23.1, Sodium 146 H, Potassium 4.3, Chlor malcom 102, Carbon Dioxide 40 H, Anion Gap 8.3, BUN 15, Creatinine 1.20, Estimated Creat Clear 115, Estimated GFR 63, Est GFR ( Amer) 76, Glucose 164 H, Lactate 2.8 H, Calcium 8.3 L, Total Bilirubin 0.6, AST 27 D, ALT 23 D, Alkaline Phosphatase 53, Troponin I 0.02, Total Protein 6.2 L, Albumin 3.4 L, Globulin 2.8, Albumin/Globulin Ratio 1.2, TSH 2.15, Salicylates < 1.0 L, Acetaminophen < 10 L, Plasma/Serum Alcohol < 10 12/22/23 22:26: VBG pH 7.17 L, VBG pCO2 91.7 H, VBG pO2 42.2 H, VBG HCO3 32.5 H, VBG Total CO2 35.4 H, VBG O2 Saturation 74.4 H, VBG Base Excess 4.0 H, VBG Lactic Acid 2.6 H 12/22/23 23:20: Ammonia 52 H 12/22/23 : SARS-CoV-2 (PCR) Not detected, Influenza A Untype (PCR) Not detected, Influenza Type B (PCR) Not detected 12/23/23 00:52: Troponin I 0.03 12/23/23 01:30: Sodium 143, Potassium 4.7, Chloride 104, Carbon Dioxide 38 H, Anion Gap 5.7, BUN 16, Creatinine 1.00, Estimated Creat Clear 100, Estimated GFR 77, Est GFR ( Amer) 94 D, Glucose 101 H D, Calcium 8.0 L, Total Bilirubin 1.1, AST 62 H D, ALT 18, Alkaline Phosphatase 63, Total Protein 6.3, Albumin 3.4 L, Globulin 2.9, Albumin/Globulin Ratio 1.2 I & O for Last 24 hours: Intake & Output 12/20/23 12/21/23 12/22/23 12/23/23 23:59 23:59 23:59 23:59 Weight 83.915 kg 85.366 kg Radiology Reports for the Last 24 Hours: Reviewed CT scan significant emphysema and COPD changes No acute findings on CT scan of head and neck question possible aspiration for CT scan of the neck Constitutional Constitutional: moderate distress Comments: Patient is somnolent but arousable, but unable to give a significant past history, presently since the patient is stable letting him sleep as I feel that allowing him to correct his CO2 oxygen and pH is more important trying to get him to talk. Patient is being monitored regularly and he is stable. But he does require the BiPAP to be able to keep his saturations elevated *Routine HEENT Exam Head: Present normocephalic and atraumatic Eye: Present PERRL and normal accommodation ENT: Present mucous membranes moist *Routine Neck Exam Neck: Present supple Comments: No swelling or masses found Routine Chest/Breast/Axilla Exam Comments: Patient voiced no complaint of tenderness *Routine Respiratory Exam Respiratory: Present accessory muscle use and respiratory distress Comments: Patient requiring BiPAP, and O2 sats are remaining stable at present settings *Routine Cardiovascular Exam Cardiovascular: Present RRR Comments: With BiPAP on unable to truly evaluate for murmurs but the cap refill is normal in both hands *Routine Abdominal Exam Abdominal: Present soft Comments: On the patient being cleaned old dried dark blood was found around the rectum, this would be consistent with his previous ER visit no new bleeding was found *Routine Rectal Exam Rectal:: deferred Comments:: Besides external exam no rectal exam was done it is noted that he does have a hemorrhoid *Routine Genitalia Exam Genitalia:: normal male *Routine Extremities Exam Comments: Patient is noted to be able to move all extremities did turn up on his side, seeing no signs of injury Routine Back/Spine/Pelvis Exam Back/Spine: Present full ROM Comments: As noted during the exam finding no indication of back injury. Noted in his history chronic back pain chronic hip pain *Routine Skin Exam Skin: Present intact *Routine Neurological Exam Comments: PossiblePatient is somnolent so feel full neurologic exam is at this time. There is no signs of weakness to either side of his body or any type of drooping no sign of stroke Routine Psychiatric Exam Comments: Somnolent, Additional Findings:: As noted we will continue to evaluate the patient as he becomes more alert, unsure of when his last pain medication was but no signs of any type of withdrawal H&P: Result Impressions 1. COPD exacerbation with acidosis increased CO2 decreased oxygenation requiring BiPAP to maintain proper respiration. 2. Chronic smoker he did indicate he was still smoking per past medical history 2 packs a day and is normal 3. Abnormal liver function test. Increased ammonia increased AST 4. Rectal bleeding, with normal hemoglobin felt to be hemorrhoidal in nature but is noted with an abnormal PET scan of the colon in the past 5, cardiovascular disease with past stent last year ejection fraction was listed at 58% 6. Respiratory scan indicated possible aspiration versus pneumonitis with an increase in lactic acid Imaging and Cardiology CT scan - chest: Status: image reviewed by me Additional comments: COPD exacerbation possible complication due to aspiration. CT Scan neck: Status: image reviewed by me Additional comments: Showing bilateral carotid stenosis related to the plaque CT scan - abdomen: Status: image reviewed by me Assessment and Plan *Assessment and plan (1) Acute respiratory failure with hypoxia and hypercarbia: Status: Acute Category: Medical Code(s): J96.01 - Acute respiratory failure with hypoxia; J96.02 - Acute respiratory failure with hypercapnia (2) Acute exacerbation of chronic obstructive pulmonary disease: Status: Acute Category: Medical Code(s): J44.1 - Chronic obstructive pulmonary disease with (acute) exacerbation (3) Alcohol use disorder: Status: Acute Category: Medical Code(s): F10.90 - Alcohol use, unspecified, uncomplicated (4) Bleeding hemorrhoids: Status: Acute Category: Medical Code(s): K64.9 - Unspecified hemorrhoids (5) O2 dependent: Status: Acute Category: Medical Code(s): Z99.81 - Dependence on supplemental oxygen (6) Dyspnea: Status: Acute Qualifiers: Dyspnea type: dyspnea on exertion Qualified Code(s): R06.09 - Other forms of dyspnea Category: Medical Code(s): R06.00 - Dyspnea, unspecified (7) Joint pain: Status: Acute Qualifiers: Joint pain location: unspecified Qualified Code(s): M25.50 - Pain in unspecified joint Category: Medical Code(s): M25.50 - Pain in unspecified joint (8) Enlarged RV (right ventricle): Status: Acute Category: Medical Code(s): I51.7 - Cardiomegaly (9) Back Pain: Status: Acute Qualifiers: Back pain laterality: bilateral Back pain location: low back pain Chronicity: chronic Sciatica laterality: bilateral sciatica Sciatica presence: with sciatica Qualified Code(s): M54.42 - Lumbago with sciatica, left side; M54.41 - Lumbago with sciatica, right side; G89.29 - Other chronic pain Category: Medical Code(s): M54.9 - Dorsalgia, unspecified (10) Abnormal liver function test: Status: Acute Category: Medical Code(s): R79.89 - Other specified abnormal findings of blood chemistry (11) Serum ammonia increased: Status: Acute Category: Medical Code(s): E72.20 - Disorder of urea cycle metabolism, unspecified (12) CO2 retention: Status: Acute Category: Medical Code(s): E87.29 - Other acidosis (13) Tobacco dependence: Status: Acute Category: Medical Code(s): F17.200 - Nicotine dependence, unspecified, uncomplicated Plan 58-year-old male who was seen earlier in the day for bleeding hemorrhoids. Discharged home. Represented to the ER with altered mental status. Found to be hypercapnic. Case discussed with ER physician, request admission for treatment of hypercapnic respiratory failure. Medicine agreed to admit for further management. Patient initiated on BiPAP. Necessitating ICU treatment. Pulmonology consulted to assist with BiPAP. Problems addressed as follows: Acute on chronic hypercapnic respiratory failure with hypoxia. Chronic hypoxemic respiratory COPD exacerbation -BiPAP overnight. Improvement in blood gas. ABG this morning with pH 7.34, pCO2 80, pO2 63. Pulmonology assisting with care. Will give a break today on BiPAP and monitor for improvement. Repeat ABG ordered for this afternoon. Discussed case with respiratory therapy, if has worsening hypercarbia, will continue BiPAP this evening. -DuoNebs every 6 hours scheduled, Pulmicort twice daily -Continue ceftriaxone 1 g daily for COPD exacerbation/respiratory failure - Continue Trelegy 100 inhaler daily Bleeding hemorrhoids -Diagnosed previous visit to the ER with bleeding hemorrhoid. Patient is on DA PT therapy with aspirin and prasugrel. Will hold at this time. -Last heart cath a year ago, okay to hold DAPT therapy -Serial H&H, hemoglobin 13.9 this morning. Repeat ordered for 4:00 this afternoon. Significant blood in diaper on morning rounds. -Low threshold to consult surgery for evaluation and banding of hemorrhoids or ligation if continues to bleed -Hydrocortisone suppository daily Abnormal liver function :Per history found alcohol abuse in the past patient noted with an increased AST and increased ammonia level. Once patient becomes more stable counseling needs to be done once again to see if we can find out how much the patient is consuming alcohol and if and how much. Chronic pain back and hips: Patient has noted being to pain clinics being on Oxycodone 10mg 4 times a day, continue 5 mg 4 times a day as needed for severe pain to decrease risk for opiate withdrawal syndrome. Anxiety: On Valium 10 mg twice daily. Holding in the setting of hypercapnia, respiratory failure, and concurrent use with opiates. Will monitor for withdrawal symptoms, low threshold to administer decreased dose if having withdrawal. Tobacco use disorder: Nicotine patch 21 mg daily, continues to smoke at least a pack a day Self-care deficit: If patient's condition does not improve patient may not be able to go home and take care of himself. Long-term care rehab might be required. PT and OT consulted for evaluation and case management to assist with dispo Full code Diabetic diet Anticoagulation contraindicated Rounded on patient after nurse practitioner. Personally examined and interviewed patient. Agree with exam findings and care plan as documented.
[2023-12-23] MEDS: 0.9 % SODIUM CHLORIDE 1000ML 1,000 ML 50 ML IV ×2 (02:00→21:56)
[2023-12-23 02:08] LABS: Basophils # 0.1 K/mm3 (0-0.2); Basophils % 0.4 % (0.1-2.0); Eosinophils % 0.4 % (0.1-12.0); Hematocrit 47.9 % (42.0-52.0); Hemoglobin 13.9 g/dL (14.1-18.0); Lymphocytes # 0.7 K/mm3 (0.7-4.5); Lymphocytes % 6.6 % (10-50); Mean Corpuscular Hemoglobin 29.6 pg (27.0-31.2); Mean Platelet Volume 8.5 fl (7.4-10.4); Monocytes # 0.5 K/mm3 (0.1-1.0); Monocytes % 4.2 % (1.7-9.3); Neutrophils # 9.6 K/mm3 (1.8-7.8); Neutrophils % 88.3 % (37.0-80.0); Platelet Count 210 K/mm3 (142-424); Red Cell Distribution Width 14.5 % (11.5-17.5); White Blood Count 10.9 K/mm3 (4.8-10.8)
--- NOTE | 2023-12-23 02:08 | PC.NURSE ---
Spoke with Primo Vieira APRN about UA, confirmed does not need godfrey inserted, only get UA when able to void.
[2023-12-23 02:11] LABS: MANUAL DIFFERENTIAL MANUAL DIFFERENTIAL (MANUAL DIFF)
[2023-12-23 02:27] LABS: Reflex Lactic Add Lactic Reflex
[2023-12-23 02:44] LABS: Lymphocytes % 8 % (10-50); Monocytes % 4 % (2-9); Neutrophils % 88 % (42-76); Total Cells Counted 100
[2023-12-23 02:45] LABS: Hypochromasia 1+; Macrocytosis 1+; Platelet Estimate Normal
--- NOTE | 2023-12-23 02:48 | PC.NURSE ---
Addendum entered by Evette Helms RN 12/23/23 02:50: Full admission interventions was not completed due to patient being lethargic and no contacts on our list would answer calls, a friend of the patient did call to check, but no information was shared due to not being relative to patient. Will pass on to next RN about admission questions. Original Note: Since arriving to floor, patient is on BiPAP, resting, yawning intermittently. Pt does not speak. Will awake when name is said, and will nod his head yes or no for some questions, but goes back to sleep after a couple of questions.
--- NOTE | 2023-12-23 03:20 | PC.NURSE ---
Completed part of med rec based on external med list.
[2023-12-23] MEDS: CEFTRIAXONE 1 GM 1 GM in 0.9 % SODIUM CHLORIDE 50 ML IV (03:29)
[2023-12-23 03:49] LABS: Lactic Acid Follow Up (RFLX 1) 1.9 mmol/L (0.7-2.1)
--- NOTE | 2023-12-23 04:45 | PC.NURSE ---
Pt at this point in the shift remains lethargic, pt will wake to name and go back to sleep after waking up. Pt is becoming more alert to lab sticks. Remains on BiPAP, weaned to 30%, o2 SAT 94% at this time. Pt still not able to provide UA, no urine output at this time, brief in place, no incontinence noted. CRE collected. No skin issues noted. Bleeding from external hemorrhoid slightly. NSR on tele. Pt is comfortable and resting in no distress. Abdomen soft and nontender. Bed alarm on. Call light in reach.
[2023-12-23 04:59] LABS: Troponin I 0.03 ng/ml (0.00-0.034)
[2023-12-23 05:55] LABS: ABG Base Excess 16.7 mmol/L (-2.4-2.3); ABG HCO3 42.4 mmhg (22.0-26.0); ABG Oxygen Saturation 93 % (90-100); ABG PH 7.34 mmol/L (7.35-7.45); ABG PO2 63.7 mmhg (80-100); ABG TCO2 44.9 mmhg (23-27)
--- NOTE | 2023-12-23 06:08 | PC.NURSE ---
Pt is more alert this AM, talking, trying to use the urinal, and moving in bed independently. Remains on BiPAP. ABG results brought up by resp.
[2023-12-23 06:12] LABS: Allen's Test Acceptable; Oxygen 30% %; PEEP 20/10; Source Right Brachial; Vent Rate 20
[2023-12-23 06:13] LABS: ABG PCO2 80.1 mmhg (35.0-45.0)
[2023-12-23] MEDS: IPRATROPIUM/ALBUTEROL 3 ML NEB IH ×5 (06:14→22:14)
[2023-12-23 06:19] LABS: Microscopic, Urine URINE MICROSCOPIC (MICROSCOPIC)
[2023-12-23 06:21] LABS: Appearance,Urine CLEAR (Clear); Bilirubin,Urine Negative (Negative); Blood, Urine TRACE-I (Negative); Color,Urine YELLOW (Yellow); Glucose,Urine (UA) Negative (Negative); Ketones,Urine Negative (Negative); Leukocyte Esterase,Urine Negative (Negative); Nitrate,Urine Negative (Negative); Protein,Urine Negative (Negative); Urobilinogen,Urine 0.2 EU/dl (0.2)
--- NOTE | 2023-12-23 06:21 | PC.NURSE ---
Ask patient about medication list, stated he has a list in his bag, only belongings brought with patient is cellphone and pants, patient shirt and underwear cut off. Told patient of his belongings at bedside, stated They did this to me the last time , no other belongings for the patient in the building, notified patient, stated he did not know where his bag was, reminded patient he was brought in by EMS and was lethargic, the bag may be at home.
[2023-12-23 06:26] LABS: Bacteria,Urine Trace /lpf; Squamous Epithelial Cell,Urine Occasional #/hpf (0-5)
[2023-12-23 06:33] LABS: Barbiturates Screen,Urine Negative ng/ml (<200); Benzodiazepines Screen,Urine Positive ng/ml (<200)
[2023-12-23 06:34] LABS: Amphetamine/Metha Screen,Urine Negative ng/ml (<1000); Cocaine Screen,Urine Negative ng/ml (<300)
[2023-12-23 06:35] LABS: Methadone Screen,Urine Negative ng/ml (<300)
[2023-12-23 06:36] LABS: Cannabinoid Screen,Urine Negative ng/ml (<50); Opiate Screen,Urine Negative ng/ml (<300)
[2023-12-23 06:37] LABS: Phencyclidine Screen,Urine Negative ng/ml (<25)
[2023-12-23 09:26] LABS: Lactate Venous 1.6 mmol/L (0.4-2.0); VBG Base Excess 11.3 mmol/L (-2.4-2.3); VBG HCO3 36.5 mmol/L (23-30); VBG Oxygen Saturation 92.6 % (50-70); VBG PCO2 63.9 mmol/L (35-51); VBG PH 7.38 mmol/L (7.31-7.41); VBG PO2 60.3 mmol/L (28-40); VBG Total CO2 38.5 mmol/L (23-27)
--- NOTE | 2023-12-23 09:29 | HMH.PHAINT1 ---
Pharmacy Intervention Comments: HOME MEDICATION LIST VERIFIED USING LIST FROM PHARMACY AND PHYSICIAN OFFICES
[2023-12-23] MEDS: HYDROCORTISONE 30MG SUPPOSITORY 30 MG RC (10:57)
[2023-12-23 11:11] LABS: POC Glucose,Bedside 102 (70-110)
[2023-12-23] MEDS: DOCUSATE SODIUM 100 MG CAPSULE PO (12:12)
--- NOTE | 2023-12-23 16:10 | PC.NURSE ---
Patient continues to bleed from rectum due to hemorrhoids, steroid suppository given. Patient on 2LNC with oxygen sats above 90%. Patient alert and oriented times 4. Multiple bloody pads and depends changed this shift, md aware. Patient able to have a bowl movement.
[2023-12-23] MEDS: OXYCODONE 5MG IMMEDIATE RELEASE TABLET 5 MG PO (16:20)
[2023-12-23 16:52] LABS: Lactate Venous 1.1 mmol/L (0.4-2.0); VBG Base Excess 9.9 mmol/L (-2.4-2.3); VBG HCO3 35.2 mmol/L (23-30); VBG Oxygen Saturation 86.1 % (50-70); VBG PCO2 62.9 mmol/L (35-51); VBG PH 7.37 mmol/L (7.31-7.41); VBG PO2 48.1 mmol/L (28-40); VBG Total CO2 37.2 mmol/L (23-27)
[2023-12-23 16:52] LABS: Hematocrit 40.6 % (42.0-52.0)
[2023-12-23 17:06] LABS: Hemoglobin 11.8 g/dL (14.1-18.0)
[2023-12-23] MEDS: BUDESONIDE 0.5MG/2ML NEB 0.5 MG IH (18:15)
[2023-12-23] MEDS: NICOTINE 21MG/24HR PATCH 21 MG TD (20:24)
[2023-12-23] MEDS: BUSPIRONE HCL 5 MG TABLET PO (20:25)
[2023-12-23] MEDS: AMITRIPTYLINE 25MG TABLET 25 MG PO (20:25)
[2023-12-23] MEDS: PANTOPRAZOLE 40MG TABLET 40 MG PO (20:25)
--- NOTE | 2023-12-23 20:45 | PC.NURSE ---
2030- called Antony Vieira APRN to room to access blood in patient brief and noted to be gushing from anus, clots also noted in brief. Charge nurse Vero Cardozo at bedside to help change and clean up patient. Vital signs stable at the time of incident, patient completely alert and oriented. New orders for H&H and type and screen now, new IV placed in Left AC. CTA ordered. This RN and Cas RN transported patient to CT. Followed orders by [facility] OPERATOR and carried out. Pt in bed resting at this time, VSS.
--- NOTE | 2023-12-23 21:03 | CT_ITS ---
PROCEDURE INFORMATION: Exam: CTA Abdomen and Pelvis With Contrast Exam date and time: 12/23/2023 9:34 PM Age: 58 years old Clinical indication: Abdominal pain; Acute; Additional info: Blood loss >500cc, rectal bleeding TECHNIQUE: Imaging protocol: Computed tomographic angiography of the abdomen and pelvis with contrast. Exam focused on the arteries. 3D rendering (Not supervised by radiologist): MIP and/or 3D reconstructed images were created by the technologist. Radiation optimization: All CT scans at this facility use at least one of these dose optimization techniques: automated exposure control; mA and/or kV adjustment per patient size (includes targeted exams where dose is matched to clinical indication); or iterative reconstruction. Contrast material: ISOVUE; Contrast volume: 80 ml; Contrast route: INTRAVENOUS (IV); COMPARISON: 1. CT ANGIO ABDOMEN PELVIS 12/22/2023 6:[address] ABDOMEN PELVIS W CON 11/15/2021 3:10 PM FINDINGS: Lungs: Minimal atelectasis at the left lung base. Emphysematous changes of the visualized lungs. Heart: Mild prominence of the heart. Coronary arteries: There are coronary artery calcifications. Aorta: Mild atherosclerosis of the abdominal aorta. No aneurysm or dissection. Celiac trunk and mesenteric arteries: No occlusion or significant stenosis. Renal arteries: Mild atherosclerosis of the left renal artery. No significant stenosis. Right iliac arteries: Mild atherosclerosis of the right iliac arteries. Left iliac arteries: Mild atherosclerosis of the left iliac arteries. Liver: Small cyst of the liver. Gallbladder and biliary ducts: Unremarkable. No calcified stones. No ductal dilation. Pancreas: At the pancreatic neck is a lobulated ovoid shaped cystic structure measuring 2 cm. No pancreatic duct dilation. No pancreatic inflammation. Spleen: There are granulomas of the spleen. Adrenal glands: Unremarkable. No mass. Kidneys and ureters: Unremarkable. No solid mass. No hydronephrosis. Stomach and bowel: Diverticulosis. There is faint curvilinear hyperdense material noted within the lower rectum and anus not identified on the noncontrast portion of the study. Appendix: Normal appendix. Intraperitoneal space: Small amount of free fluid. No free air. Lymph nodes: Unremarkable. No enlarged lymph nodes. Urinary bladder: Bladder decompressed by Maldonado. Reproductive: Unremarkable as visualized. Bones/joints: Degenerative changes of the spine. Bilateral L5 pars defects. Soft tissues: Unremarkable. Other findings: . IMPRESSION: 1. Acute mild anorectal bleeding. 2. Stable appearance of the pancreatic lesion since the 2021 exam. However, neoplasm not excluded. Recommend clinical correlation and follow-up. This may include an abdominal MRI with and without contrast.
--- NOTE | 2023-12-23 21:13 | P.PN_ITS ---
Subjective *Date: 12/23/23 *Time: 23:20 Interval history: Nursing staff called me to the floor to examine the amount of blood the patient was losing rectally. What appeared to be about a unit of blood soaking pad also on a pillowcase was visible. Patient is still stable and is talking he is alert oriented and has been updated on his condition Exam Data for Last 24 hours Vital signs and Labs for Last 24 Hours: Temp Pulse Resp BP Pulse Ox O2 Del Method O2 Flow Rate 97.8 F 105 H 26 H 123/70 91 L Nasal Cannula 2 12/23/23 20:00 12/23/23 20:00 12/23/23 20:00 12/23/23 20:00 12/23/23 20:00 12/23/23 20:00 12/23/23 20:00 FiO2 30 12/23/23 06:14 Laboratory Results - last 24 hr 12/22/23 22:17: WBC 9.4 D, RBC 4.46 L, Hgb 13.0 L, Hct 45.2, MCV 101.4 H, MCH 29.3, MCHC 28.9 L, RDW 14.6, Plt Count 274, MPV 9.2, Neut % (Auto) 65.9, Lymph % (Auto) 26.8, Harvey % (Auto) 5.6, Eos % (Auto) 0.9, Baso % (Auto) 0.9, Neut # (Auto) 6.2, Lymph # (Auto) 2.5, Harvey # (Auto) 0.5, Eos # (Auto) 0.1, Baso # (Auto) 0.1, PT 12.4, INR 1.12 H, APTT 23.1, Sodium 146 H, Potassium 4.3, Chloride 102, Carbon Dioxide 40 H, Anion Gap 8.3, BUN 15, Creatinine 1.20, Estimated Creat Clear 115, Estimated GFR 63, Est GFR ( Amer) 76, Glucose 164 H, Lactate 2.8 H, Calcium 8.3 L, Total Bilirubin 0.6, AST 27 D, ALT 23 D, Alkaline Phosphatase 53, Troponin I 0.02, Total Protein 6.2 L, Albumin 3.4 L, Globulin 2.8, Albumin/Globulin Ratio 1.2, TSH 2.15, Salicylates < 1.0 L, Acetaminophen < 10 L, Plasma/Serum Alcohol < 10 12/22/23 22:26: VBG pH 7.17 L, VBG pCO2 91.7 H, VBG pO2 42.2 H, VBG HCO3 32.5 H, VBG Total CO2 35.4 H, VBG O2 Saturation 74.4 H, VBG Base Excess 4.0 H, VBG Lactic Acid 2.6 H 12/22/23 23:20: Ammonia 52 H 12/22/23 : SARS-CoV-2 (PCR) Not detected, Influenza A Untype (PCR) Not detected, Influenza Type B (PCR) Not detected 12/23/23 00:52: Troponin I 0.03 12/23/23 01:30: WBC 10.9 H, RBC 4.70, Hgb 13.9 L, Hct 47.9, MCV 102.0 H, MCH 29.6, MCHC 29.0 L, RDW 14.5, Plt Count 210, MPV 8.5, Neut % (Auto) 88.3 H, Lymph % (Auto) 6.6 L, Harvey % (Auto) 4.2, Eos % (Auto) 0.4, Baso % (Auto) 0.4, Neut # (Auto) 9.6 H, Lymph # (Auto) 0.7, Harvey # (Auto) 0.5, Eos # (Auto) 0.0, Baso # (Auto) 0.1, Total Counted 100, Neutrophils % (Manual) 88 H, Lymphocytes % (Manual) 8 L, Monocytes % (Manual) 4, Platelet Estimate Normal, Hypochromasia 1+, Macrocytosis 1+, Sodium 143, Potassium 4.7, Chloride 104, Carbon Dioxide 38 H, Anion Gap 5.7, BUN 16, Creatinine 1.00, Estimated Creat Clear 100, Estimated GFR 77, Est GFR ( Amer) 94 D, Glucose 101 H D, Calcium 8.0 L, Total Bilirubin 1.1, AST 62 H D, ALT 18, Alkaline Phosphatase 63, Total Protein 6.3, Albumin 3.4 L, Globulin 2.9, Albumin/Globulin Ratio 1.2 12/23/23 03:23: Lactate 1.9 12/23/23 04:30: Troponin I 0.03 12/23/23 06:00: Specimen Source Right brachial, O2 % 30%, ABG pH 7.34 L, ABG pCO2 80.1 H, ABG pO2 63.7 L, ABG HCO3 42.4 H, ABG Total CO2 44.9 H, ABG O2 Saturation 93, ABG Base Excess 16.7 H, Gerard Test Acceptable, Vent Rate 20, PEEP 20/10 12/23/23 06:16: Urine Color Yellow, Urine Appearance Clear, Urine pH 6.0, Ur Specific [place] 1.020, Urine Protein Negative, Urine Glucose (UA) Negative, Urine Ketones Negative, Urine Blood Trace-i, Urine Nitrate Negative, Urine Bilirubin Negative, Urine Urobilinogen 0.2, Ur Leukocyte Esterase Negative, Urine RBC None, Urine WBC None, Ur Squamous Epith Cells Occasional, Urine Bacteria Trace, Urine Opiates Screen Negative, Urine Methadone Screen Negative, Ur Barbituates Screen Negative, Ur Phencyclidine Scrn Negative, Ur Amphetamines Screen Negative, U Benzodiazepines Scrn Positive H, Urine Cocaine Screen Negative, U Marijuana (THC) Screen Negative 12/23/23 09:00: VBG pH 7.38, VBG pCO2 63.9 H, VBG pO2 60.3 H, VBG HCO3 36.5 H, VBG Total CO2 38.5 H, VBG O2 Saturation 92.6 H, VBG Base Excess 11.3 H, VBG Lactic Acid 1.6 12/23/23 10:44: POC Glucose 102 12/23/23 16:00: VBG pH 7.37, VBG pCO2 62.9 H, VBG pO2 48.1 H, VBG HCO3 35.2 H, VBG Total CO2 37.2 H, VBG O2 Saturation 86.1 H, VBG Base Excess 9.9 H, VBG Lactic Acid 1.1 12/23/23 16:30: Hgb 11.8 L D, Hct 40.6 L I & O for Last 24 hours: Intake & Output 12/20/23 12/21/23 12/22/23 12/23/23 23:59 23:59 23:59 23:59 Intake Total 584 / 584 Output Total 350 / 350 Balance 234 / 234 Weight 83.915 kg 85.366 kg Constitutional Constitutional: no acute distress Comments: Patient is presently on his normal level of oxygen from home. He has been able to eat, he has not complained of any lower abdominal or pelvic pain. *Routine Abdominal Exam Abdominal: Present soft and normoactive bowel sounds Comments: Exam of the abdomen is rounded soft nontender no guarding *Routine Rectal Exam Patient deferred: visual exam (A significant amount of bright red blood is noted onto the pads and bedding of the patient. No clotting was seen) Assessment and Plan *Assessment and plan (1) Rectal bleeding: Status: Acute Category: Medical Code(s): K62.5 - Hemorrhage of anus and rectum (2) Anemia: Status: Acute Category: Medical Code(s): D64.9 - Anemia, unspecified Plan 1. Rectal bleeding with decrease of hemoglobin from 14-11.8. Noting renewed large amount of blood onto the bedding and padding. H&H ordered type and screen ordered will give 1 unit if hemoglobin drops until around 9. Called Dr. Luis, to update him on the situation. We discussed the fact that he had been on 2 anticoagulants 1 being aspirin and praigo. Also the need for a CTA repeat of abdomen and pelvis.. Dr. Gaspar also has been called and updated on the patient, he is ordered 1 unit of fresh frozen plasma to be given. No reversal agent available for his present anticoagulant. Will make patient n.p.o. except for ice chips and sips of water for any oral medicine. Noted that staff is drawing blood at this point in time but CT scan presently is not available due to the need of a patient with higher need. When available patient will be taken down for CT scan as soon as possible. Will add 50 cc of normal saline per hour, increase that as needed depending upon if blood transfusions are needed on her heart rate increases her blood pressure was to decrease. Patient is presently stable. Added at 11:21 PM, spoke with Dr. BRITT radiologist that the patient had active bleeding at the rectum and upper anus, patient is stable at this time vitals are good patient is sleeping. Updated Dr. Luis by phone will continue watchful waiting recheck H&H at 3 AM
[2023-12-23 21:30] LABS: Hematocrit 41.5 % (42.0-52.0); Hemoglobin 12.1 g/dL (14.1-18.0)
[2023-12-23] MEDS: IOPAMIDOL-370 (76%);100ML BOTTLE 80 ML IV (21:40)
[2023-12-23] MEDS: 0.9 % SODIUM CHLORIDE 50 ML VIAL IV (21:40)
--- NOTE | 2023-12-23 22:49 | PC.NURSE ---
Yoly- daughter, as bedside, wanted her number to be in his contact information, [phone], told her I would make note
--- NOTE | 2023-12-23 23:38 | PC.NURSE ---
This nurse and Vero Cardozo RN changed pt patient brief at this time, pad inside of brief saturated, some clots noted.
[2023-12-24] VITALS (32 sets, daily range): BP systolic 87–147; BP diastolic 55–90; PULSE 88–120; RESP 12–30; TEMP 36.3–36.9; O2SAT 90–100; BMI 26.1
[2023-12-24] MEDS: CEFTRIAXONE 1 GM 1 GM in 0.9 % SODIUM CHLORIDE 50 ML IV (01:56)
[2023-12-24] MEDS: IPRATROPIUM/ALBUTEROL 3 ML NEB IH ×5 (02:08→22:51)
[2023-12-24 03:36] LABS: Hematocrit 35.7 % (42.0-52.0); Hemoglobin 10.3 g/dL (14.1-18.0)
[2023-12-24] MEDS: 0.9 % SODIUM CHLORIDE 1000ML 1,000 ML 100 ML IV (04:36)
--- NOTE | 2023-12-24 05:29 | PC.NURSE ---
Pt has been oriented throughout the night. Rested well throughout the night and did not have any complaints. Daughter remained at the bedside. No large episodes of bleeding from anus since 2329. Scant amount on pad in brief at last change. Maldonado in place and draining dark urine, no distention noted. Lung sounds wheezing/rhonchi noted. 2L NC, O2 sat >90%. Pt can only have ice chips at this time per INJURY/SAFETY HAZARD ASSESSMENT. NS @ 100ml/hr. Bed alarm on. Call light in reach.
[2023-12-24] MEDS: BUDESONIDE 0.5MG/2ML NEB 0.5 MG IH ×2 (06:14→18:19)
[2023-12-24] MEDS: FLUTICASONE/UMECLIDIN/VILANTER 100/62.5/25MCG INHALER 1 PUFF IH (06:15)
[2023-12-24 06:17] LABS: Basophils % 0.4 % (0.1-2.0); Eosinophils # 0.1 K/mm3 (0.0-0.4); Eosinophils % 1.8 % (0.1-12.0); Hematocrit 34.8 % (42.0-52.0); Hemoglobin 10.3 g/dL (14.1-18.0); Lymphocytes # 1.4 K/mm3 (0.7-4.5); Lymphocytes % 21.3 % (10-50); Mean Corpuscular HGB Conc 29.6 g/dL (31.8-35.4); Mean Corpuscular Hemoglobin 29.6 pg (27.0-31.2); Mean Corpuscular Volume 99.8 fl (80-94); Mean Platelet Volume 8.1 fl (7.4-10.4); Monocytes # 0.4 K/mm3 (0.1-1.0); Monocytes % 6.4 % (1.7-9.3); Neutrophils # 4.7 K/mm3 (1.8-7.8); Neutrophils % 70.1 % (37.0-80.0); Platelet Count 209 K/mm3 (142-424); Red Blood Count 3.49 M/mm3 (4.60-6.20); Red Cell Distribution Width 14.8 % (11.5-17.5); White Blood Count 6.8 K/mm3 (4.8-10.8)
[2023-12-24] MEDS: OXYCODONE 5MG IMMEDIATE RELEASE TABLET 5 MG PO ×3 (06:24→20:08)
[2023-12-24 06:32] LABS: Alanine Aminotransferase 11 U/L (12-78); Albumin Level 2.4 g/dl (3.5-5.0); Alkaline Phosphatase 43 U/L (38-126); Aspartate Amino Transferase 16 U/L (17-59); Bilirubin,Total 0.5 mg/dl (0.2-1.3); Blood Urea Nitrogen 16 mg/dl (9-20); Calcium 7.9 mg/dl (8.4-10.2); Chloride 103 mmol/L (98-107); Creatinine Clearance Estimated 124 mL/min (50-200); Estimated Glomerular Filt Rate 100 ml/min (>60); GFR (African American) 121 ML/MIN (>60); Globulin 2.4 g/dL (1.3-3.2); Glucose 84 mg/dl (74-100); Magnesium 2.1 mg/dl (1.6-2.3); Sodium 142 mmol/L (136-145); Total Protein,Serum 4.8 g/dl (6.3-8.2)
--- NOTE | 2023-12-24 06:42 | EXP.SURG.CON ---
History of Present Illness *Admission Date: 12/23/23 *Reason for visit:: Bleeding hemorrhoids *History of present illness: Patient is a 58-year-old disabled male allergic to aspirin, codeine, ibuprofen, acetaminophen, tramadol on dual antiplatelet therapy (Effient and aspirin) with history of COPD, tobacco dependence hypertension, hyperlipidemia, coronary artery disease, tobacco abuse who presented to the emergency department on 12/22/2023 with rectal bleeding described as bright red blood per rectum which was attributed to what appeared to be a large area of thrombosed hemorrhoids. He did undergo CT angiogram at that time which revealed no evidence of any active bleeding. He had topical hemostatic applied to the hemorrhoids and this resulted in hemostasis. Plan was for outpatient management with surgical follow-up for his hemorrhoids and he was discharged from the emergency department. Patient reported back to the emergency department in the slubber tender hours of 12/23/2023 due to respiratory symptoms. At that time hemorrhoids were hemostatic but he had evidence of hypercarbia. He was admitted for inpatient management. He did develop recurrent bleeding which was appreciable. He did undergo repeat CT angiogram which interestingly at this time revealed findings of acute mild anorectal bleeding. Hemoglobin was 13 upon presentation to the emergency department. This morning it is 10.3. Surgical consultation was ordered for this morning due to his rectal bleeding. . [facility] Disclaimer: The information contained in this section may have been updated after the patient was seen, as this information can be updated by other users. Medical History Abnormal PET scan of colon CAD in council artery Pneumonia Abnormal electrocardiogram [ECG] [EKG] Dyspnea Pseudomonal pneumonia Hyperlipemia HTN (hypertension) Overweight (BMI 25.0-29.9) Pulmonary emphysema Chronic hypoxemic respiratory failure Tobacco abuse disorder Tobacco abuse counseling Screening for lung cancer Smoking greater than 30 pack years Dyspnea on exertion Tobacco use COPD (chronic obstructive pulmonary disease) Patient is following with pulmonary. He does have multiple nodules in the lung. He also has severe COPD. Initially in October this patient had no pulmonary nodules however in June 2021 and then 2023 there were new nodules noted. This along with the abnormalities found on the PET scan is obviously very concerning see below. Surgical History History of repair of ACL History of colonoscopy Family History Other Alcohol abuse Cancer Coronary artery disease Diabetes Emphysema lung Social History (Updated 12/23/23 @ 03:06 by Evette Helms RN) Smoking Status: Current every day smoker tobacco type: cigarettes packs per day: 2 second hand exposure: Yes alcohol intake: former substance use type: denies use current occupational status: disabled Travel in the last 8 weeks: None household members: friend(s) housing: house Review of Systems *Neurologic Neurologic: Reports as per [facility] Meds Home Medications and Allergies Home Medications ?Medication ?Instructions ?Recorded ?Confirmed ?Type oxygen-air delivery systems 07/25/22 12/02/23 History aspirin 81 mg tablet,delayed 81 mg PO DAILY #30 tabs 12/28/22 12/23/23 Rx release (Adult Aspirin Regimen) metoprolol succinate 25 mg 12.5 mg (1/2 x 25 mg) PO DAILY #30 12/28/22 12/23/23 Rx tablet,extended release 24 hr tabs (Toprol XL) ergocalciferol (vitamin D2) 1,250 50,000 unit PO WEEKLY Supplement 01/01/23 12/23/23 Rx mcg (50,000 unit) capsule #10 caps prasugrel 10 mg tablet (Effient) 10 mg PO DAILY 90 days #90 tabs 08/19/23 12/23/23 Rx fluticasone fur. 100 mcg-umeclid 1 inh inhalation DAILY 90 days #90 09/23/23 12/23/23 Rx 62.5 mcg-vilant 25 mcg ea inhalat.powder (Trelegy Ellipta) amitriptyline 25 mg tablet 25 mg PO HS #30 tabs 10/30/23 12/23/23 Rx diazepam 10 mg tablet 10 mg PO BID PRN anxiety #60 tabs 10/30/23 12/23/23 Rx methylnaltrexone 150 mg tablet 450 mg (3 x 150 mg) PO DAILY #90 10/30/23 12/02/23 Rx tabs ipratropium 0.5 mg-albuterol 3 mg 3 ml inhalation Q4H PRN wheezing 12/06/23 12/23/23 Rx (2.5 mg base)/3 mL nebulization #180 mL soln nicotine 21 mg/24 hr daily 1 patch transdermal DAILY #28 ea 12/06/23 12/23/23 Rx transdermal patch oxycodone 10 mg tablet 10 mg PO QID PRN pain 30 days #120 12/10/23 12/23/23 Rx tabs amoxicillin 875 mg-potassium 1 tab PO BID 14 days #28 tabs 12/19/23 12/23/23 Rx clavulanate 125 mg tablet prednisone 10 mg tablets in a dose See Rx Instructions PO PER PKG DIR 12/19/23 12/23/23 Rx pack #21 tabs polyethylene glycol 3350 17 17 g PO DAILY #510 grams 12/22/23 12/23/23 Rx gram/dose oral powder (Miralax) albuterol sulfate 90 mcg/actuation 2 puff inhalation Q4HP PRN 12/23/23 12/23/23 History aerosol inhaler (Ventolin HFA) Shortness Of Breath atorvastatin 40 mg tablet 40 mg PO HS 12/23/23 12/23/23 History bupropion HCl 150 mg 24 hr tablet, 150 mg PO DAILY 12/23/23 12/23/23 History extended release buspirone 5 mg tablet 5 mg PO BID 12/23/23 12/23/23 History sodium chloride 0.65 % nasal spray 1 spray intranasal BIDP PRN Dry 12/23/23 12/23/23 History aerosol ([place] Saline) Nasal Passages New Prescriptions to Start Prescriptions: Allergies Allergy/AdvReac Type Severity Reaction Status Date / Time aspirin [ASPIRIN] Allergy Mild Verified 12/02/23 11:57 codeine [CODEINE] Allergy Mild Verified 12/02/23 11:57 ibuprofen [IBUPROFEN] Allergy Unknown Verified 12/02/23 11:57 acetaminophen [From Tylenol] Allergy Verified 12/02/23 11:57 tramadol Allergy Verified 12/02/23 11:57 Exam (Inpt) Vital signs and Labs for Last 24 Hours: Temp Pulse Resp BP Pulse Ox O2 Del Method O2 Flow Rate 97.4 F L 114 H 19 113/67 95 Nasal Cannula 2 12/24/23 04:00 12/24/23 06:16 12/24/23 06:00 12/24/23 06:00 12/24/23 06:16 12/24/23 06:16 12/24/23 06:16 FiO2 30 12/23/23 06:14 Laboratory Results - last 24 hr 12/23/23 09:00: VBG pH 7.38, VBG pCO2 63.9 H, VBG pO2 60.3 H, VBG HCO3 36.5 H, VBG Total CO2 38.5 H, VBG O2 Saturation 92.6 H, VBG Base Excess 11.3 H, VBG Lactic Acid 1.6 12/23/23 10:44: POC Glucose 102 12/23/23 16:00: VBG pH 7.37, VBG pCO2 62.9 H, VBG pO2 48.1 H, VBG HCO3 35.2 H, VBG Total CO2 37.2 H, VBG O2 Saturation 86.1 H, VBG Base Excess 9.9 H, VBG Lactic Acid 1.1 12/23/23 16:30: Hgb 11.8 L D, Hct 40.6 L 12/23/23 21:18: Hgb 12.1 L, Hct 41.5 L, Blood Type O Negative, Antibody Screen Negative, Crossmatch (AHG) See Detail 12/24/23 03:00: Hgb 10.3 L D, Hct 35.7 L 12/24/23 05:25: WBC 6.8 D, RBC 3.49 L D, Hgb 10.3 L, Hct 34.8 L, MCV 99.8 H, MCH 29.6, MCHC 29.6 L, RDW 14.8, Plt Count 209, MPV 8.1, Neut % (Auto) 70.1, Lymph % (Auto) 21.3, [place] % (Auto) 6.4, Eos % (Auto) 1.8, Baso % (Auto) 0.4, Neut # (Auto) 4.7, Lymph # (Auto) 1.4, [place] # (Auto) 0.4, Eos # (Auto) 0.1, Baso # (Auto) 0.0, Sodium 142, Potassium 4.0, Chloride 103, Anion Gap 3.0 L, BUN 16, Creatinine 0.80, Estimated Creat Clear 124, Estimated GFR 100, Est GFR ( Amer) 121 D, Glucose 84, Calcium 7.9 L, Magnesium 2.1, Total Bilirubin 0.5, AST 16 L D, ALT 11 L D, Alkaline Phosphatase 43, Total Protein 4.8 L, Albumin 2.4 L D, Globulin 2.4, Albumin/Globulin Ratio 1.0 L I & O for Labs for Last 24 Hours: Intake & Output 12/21/23 12/22/23 12/23/23 12/24/23 11:59 11:59 11:59 11:59 Intake Total 464 / 464 1270 / 1270 Output Total 350 / 350 400 / 400 Balance 114 / 114 870 / 870 Weight 188 lb 3.197 oz Microbiology Reports for the Last 24 Hours: Microbiology 12/22/23 23:30 Blood Blood Culture - Preliminary NO GROWTH AFTER 24 HOURS 12/22/23 23:20 Blood Blood Culture - Preliminary NO GROWTH AFTER 24 HOURS Constitutional: chronically ill appearing Head: Present normocephalic Respiratory: Present decreased breath sounds; Absent patient mechanically ventilated Cardiac: Present Reg Rate and Rhythm GI: Present soft Comments:: There is some blood in the perianal location with a blood clot. Removal of all of this reveals no evidence of any active bleeding. Digital examination reveals what appears to be prolapsing excoriated chronically thrombosed hemorrhoid in the lateral location without active bleeding. . Extremities: Present normal inspection Results Labs 12/24/23 05:25 12/24/23 05:25 Labs: Laboratory Results - last 24 hr 12/23/23 09:00: VBG pH 7.38, VBG pCO2 63.9 H, VBG pO2 60.3 H, VBG HCO3 36.5 H, VBG Total CO2 38.5 H, VBG O2 Saturation 92.6 H, VBG Base Excess 11.3 H, VBG Lactic Acid 1.6 12/23/23 10:44: POC Glucose 102 12/23/23 16:00: VBG pH 7.37, VBG pCO2 62.9 H, VBG pO2 48.1 H, VBG HCO3 35.2 H, VBG Total CO2 37.2 H, VBG O2 Saturation 86.1 H, VBG Base Excess 9.9 H, VBG Lactic Acid 1.1 12/23/23 16:30: Hgb 11.8 L D, Hct 40.6 L 12/23/23 21:18: Hgb 12.1 L, Hct 41.5 L, Blood Type O Negative, Antibody Screen Negative, Crossmatch (AHG) See Detail 12/24/23 03:00: Hgb 10.3 L D, Hct 35.7 L 12/24/23 05:25: WBC 6.8 D, RBC 3.49 L D, Hgb 10.3 L, Hct 34.8 L, MCV 99.8 H, MCH 29.6, MCHC 29.6 L, RDW 14.8, Plt Count 209, MPV 8.1, Neut % (Auto) 70.1, Lymph % (Auto) 21.3, [place] % (Auto) 6.4, Eos % (Auto) 1.8, Baso % (Auto) 0.4, Neut # (Auto) 4.7, Lymph # (Auto) 1.4, [place] # (Auto) 0.4, Eos # (Auto) 0.1, Baso # (Auto) 0.0, Sodium 142, Potassium 4.0, Chloride 103, Anion Gap 3.0 L, BUN 16, Creatinine 0.80, Estimated Creat Clear 124, Estimated GFR 100, Est GFR ( Amer) 121 D, Glucose 84, Calcium 7.9 L, Magnesium 2.1, Total Bilirubin 0.5, AST 16 L D, ALT 11 L D, Alkaline Phosphatase 43, Total Protein 4.8 L, Albumin 2.4 L D, Globulin 2.4, Albumin/Globulin Ratio 1.0 L Assessment and Plan *Assessment and plan (1) Rectal bleeding: Status: Acute Category: Medical Code(s): K62.5 - Hemorrhage of anus and rectum Plan Likely source of bleeding is hemorrhoidal. This has been hemostatic for several hours. However, given the appreciable amount of bleeding and potential for recurrence I feel that consideration for exam under anesthesia with possible simple hemorrhoidectomy would be reasonable to prevent recurrent acute bleeding. .
[2023-12-24 06:44] LABS: Carbon Dioxide 43 mmol/L (22.0-30.0)
[2023-12-24] MEDS: predniSONE 20MG TAB 40 MG PO (08:19)
[2023-12-24] MEDS: BUSPIRONE HCL 5 MG TABLET PO ×2 (08:19→20:02)
[2023-12-24] MEDS: buPROPion HCl SR 150MG TAB 150 MG PO (08:19)
[2023-12-24 09:05] LABS: VBG Base Excess 13.7 mmol/L (-2.4-2.3); VBG HCO3 38.5 mmol/L (23-30); VBG Oxygen Saturation 99.1 % (50-70); VBG PCO2 64.4 mmol/L (35-51); VBG PO2 187.2 mmol/L (28-40); VBG Total CO2 40.5 mmol/L (23-27)
--- NOTE | 2023-12-24 09:27 | HMH.PTEV ---
Physical Therapy Evaluation Rehab PT IP Evaluation Start: 12/23/23 11:41 Freq: ONCE Status: Active Protocol: Document 12/24/23 09:22 SANDRINE (Rec: 12/24/23 09:27 SANDRINE [id number]) Subjective/History History History Per H&P: This patient a long- term smoker showing indication of COPD emphysema on mini exam has been seen in the emergency room approximately 3 times this year for exacerbation of COPD. Much worse at this point in time with venous blood gas showing increased CO2 decreased O2 with a pH down to 7.17. Requiring BiPAP as patient is quite somnolent but can be aroused. Noting that the patient was seen earlier for rectal bleeding which was felt it was hemorrhoidal and that his hemoglobin was normal. Noting on this visit it is noted that his liver function test AST is elevated to 62 with his ammonia level at 52. Per past medical history could not find any indication of alcohol abuse. Patient noted for receiving cardiac stent approximately January of last year with an ejection fraction greater than 50. Patient does not appear to be malnourished but continues per history and he did acknowledge still smoking probably upwards or over 2 packs a day I do agree with the ER physician that the patient needs to be placed in being placed on BiPAP and try to collect these electrolyte abnormalities making sure there is no cardiac event taking place. Potential for some aspiration pneumonia pneumonitis. Patient also noted is having an abnormal PET scan of the colon in the past Subjective Subjective Pt reports he lives alone in a single-story home with ramped entrance. Pt primarily uses a scooter for mobility. Pt reports he was IND with transfers and bed mobility prior to admission. New diagnosis of cancer in past 12 No months? Rehab PT IP Eval Objective Appearance Patient Behavior Appropriate,Cooperative Patient Orientation Person,Situation Difficulty following instructions none Speech Pattern Clear Ambulation Patient Able to Ambulate No Balance Ability to Arise Able, uses arms to help Sitting Balance Steady, safe Transfers Bed Transfer Ability Supervision/Stand by Rehab PT IP prob,goals,plan Problems Date of Evaluation: 12/24/23 PT IP Problems Bed Mobility,Transfers,Gait, Balance,Self care,Safety Rehab Potential Rehab Potential Good Plan PT Intervention Plan Bed Mobility,Transfers,Gait, Balance,Self care,Safety, Therapeutic Exercise Other Intervention Plan 1-2 times PT Plan Frequency Daily Duration LOS Discharge Goals Bed Transfer Ability Independent Sit to Stand Chair Transfer Ability Minimal x 1 (25% assist) Discharge Plan PT Discharge Plan Initial physical therapy evaluation performed. Patient presents below baseline at this time in functional mobility, transfers, and strength. Pt unable to initiate stand this date d/t self-reported weakness and wanting to lay back in bed. Pt not safe to return home alone at this time d/t current level of functional mobility. PT recommending short-term rehabilitation stay upon d/c from [facility]. Pt may be safe to d/ c home with 24/ assistance by family and PT services if pt demo's improved mobility while at [facility]. Pt would benefit from skilled PT while at [facility] to prevent further functional decline and maximize safety with mobility. Eval Complexity Eval Charge Codes 98860 - Moderate Complexity PHYSICIAN CERTIFICATION: I certify the specified therapy services for Ancelmo Lima are required, authorized, and reviewed every 30 days.
--- NOTE | 2023-12-24 09:42 | P.CONS_ITS ---
History of Present Illness History of present illness: Mr. Lima is a 58-year-old male greater than [id number] smoking history, COPD, mild worsening respiratory failure presented to the ER with worsening respiratory distress, hypercarbic respiratory failure and also concerns for rectal bleeding. Admits worsening cough productive and worsening respiratory distress. [facility] Disclaimer: The information contained in this section may have been updated after the patient was seen, as this information can be updated by other users. Medical History (Updated 12/24/23 @ 10:20 by Candido Ng MD) Acute on chronic respiratory failure with hypoxia and hypercapnia Acute and chronic respiratory failure with hypoxia Abnormal PET scan of colon CAD in [place] artery Pneumonia Abnormal electrocardiogram [ECG] [EKG] Dyspnea Pseudomonal pneumonia Hyperlipemia HTN (hypertension) Overweight (BMI 25.0-29.9) Pulmonary emphysema Chronic hypoxemic respiratory failure Tobacco abuse disorder Tobacco abuse counseling Screening for lung cancer Smoking greater than 30 pack years Dyspnea on exertion Tobacco use COPD (chronic obstructive pulmonary disease) Surgical History History of repair of ACL History of colonoscopy Family History Other Alcohol abuse Cancer Coronary artery disease Diabetes Emphysema lung Social History (Updated 12/23/23 @ 03:06 by Evette Helms RN) Smoking Status: Current every day smoker tobacco type: cigarettes packs per day: 2 second hand exposure: Yes alcohol intake: former substance use type: denies use current occupational status: disabled Travel in the last 8 weeks: None household members: friend(s) housing: house Review of Systems Constitutional Constitutional: Reports anorexia, Reports body ache(s) and Reports fatigue Eyes Eyes: Denies eye discharge, Denies dry eyes, Denies irritation and Denies itchy eyes ENT Ears, Nose, Mouth, and Throat: Denies epistaxis, Denies facial pain, Denies lip swelling and Denies throat swelling *Cardiovascular Cardiovascular: Reports dyspnea and Reports dyspnea on exertion *Respiratory Respiratory: Denies change in phlegm color, Reports chest congestion, Reports cough, Reports dyspnea, Reports dyspnea on exertion, Reports excessive phlegm production and Reports wheezing *Gastrointestinal Gastrointestinal: Denies abdominal pain, Denies belching, Denies cramping and Reports hematochezia *Musculoskeletal Musculoskeletal: Reports back pain, Reports myalgias and Reports other (No small joint swelling or Pain) *Neurologic Neurologic: Reports as per HPI Psychiatric Psychiatric: Denies homicidal ideation and Denies suicidal ideation Endocrine Endocrine: Reports fatigue and Denies heat intolerance Hematologic/Lymphatic Hematologic/Lymphatic: Denies easy bleeding and Denies lymphadenopathy Allergic/Immunologic Allergic/Immunologic: Denies itchy eyes, Denies lip swelling, Denies throat swelling and Reports wheezing Pulmonology Exam Inpatient Vital signs and Labs for Last 24 Hours: Temp Pulse Resp BP Pulse Ox O2 Del Method O2 Flow Rate 98.1 F 117 H 30 H 98/70 L 94 L Nasal Cannula 2.5 12/24/23 08:27 12/24/23 08:00 12/24/23 08:00 12/24/23 08:00 12/24/23 08:00 12/24/23 08:00 12/24/23 08:00 FiO2 30 12/23/23 06:14 Laboratory Results - last 24 hr 12/23/23 10:44: POC Glucose 102 12/23/23 16:00: VBG pH 7.37, VBG pCO2 62.9 H, VBG pO2 48.1 H, VBG HCO3 35.2 H, V BG Total CO2 37.2 H, VBG O2 Saturation 86.1 H, VBG Base Excess 9.9 H, VBG Lactic Acid 1.1 12/23/23 16:30: Hgb 11.8 L D, Hct 40.6 L 12/23/23 21:18: Hgb 12.1 L, Hct 41.5 L, Blood Type O Negative, Antibody Screen Negative, Crossmatch ([facility]) See Detail 12/24/23 03:00: Hgb 10.3 L D, Hct 35.7 L 12/24/23 05:25: WBC 6.8 D, RBC 3.49 L D, Hgb 10.3 L, Hct 34.8 L, MCV 99.8 H, MCH 29.6, MCHC 29.6 L, RDW 14.8, Plt Count 209, MPV 8.1, Neut % (Auto) 70.1, Lymph % (Auto) 21.3, [place] % (Auto) 6.4, Eos % (Auto) 1.8, Baso % (Auto) 0.4, Neut # (Auto) 4.7, Lymph # (Auto) 1.4, [place] # (Auto) 0.4, Eos # (Auto) 0.1, Baso # (Auto) 0.0, Sodium 142, Potassium 4.0, Chloride 103, Carbon Dioxide 43 H*, A nion Gap 0.0 L, BUN 16, Creatinine 0.80, Estimated Creat Clear 124, Estimated GFR 100, Est GFR ( Amer) 121 D, Glucose 84, Calcium 7.9 L, Magnesium 2.1, Total Bilirubin 0.5, AST 16 L D, ALT 11 L D, Alkaline Phosphatase 43, Total Protein 4.8 L, Albumin 2.4 L D, Globulin 2.4, Albumin/Globulin Ratio 1.0 L 12/24/23 08:02: VBG pH 7.40, VBG pCO2 64.4 H, VBG pO2 187.2 H, VBG HCO3 38.5 H, VBG Total CO2 40.5 H, VBG O2 Saturation 99.1 H, VBG Base Excess 13.7 H, VBG Lactic Acid 1.0 I & O for Labs for Last 24 Hours: Intake & Output 12/21/23 12/22/23 12/23/23 12/24/23 23:59 23:59 23:59 23:59 Intake Total 584 / 584 1150 / 1150 Output Total 750 / 750 300 / 300 Balance -166 / -166 850 / 850 Weight 185 lb 0.014 oz 188 lb 3.197 oz 186 lb 8.177 oz Microbiology Reports for the Last 24 Hours: Microbiology 12/22/23 23:30 Blood Blood Culture - Preliminary NO GROWTH AFTER 24 HOURS 12/22/23 23:20 Blood Blood Culture - Preliminary NO GROWTH AFTER 24 HOURS Constitutional: Present moderate distress Head: Present normocephalic and atraumatic ENT: Present normal exam, normal oropharynx and mucous membranes moist Neck: Present normal inspection and full ROM Respiratory: Present respiratory distress, diminished air movement and able to speak in complete sentences; Absent wheezes Cardiac: Present S1/S2, Tachycardia and radial pulses present GI: Present soft and distention; Absent tenderness or guarding Skin: Present intact; Absent cyanosis or jaundice Neuro: Present alert, awake and oriented x 3 Extremities: Present normal inspection; Absent clubbing or cyanosis Psychiatric: Present normal affect and cooperative Meds Home Medications and Allergies Home Medications ?Medication ?Instructions ?Recorded ?Confirmed ?Type oxygen-air delivery systems 07/25/22 12/02/23 History aspirin 81 mg tablet,delayed 81 mg PO DAILY #30 tabs 12/28/22 12/23/23 Rx release (Adult Aspirin Regimen) metoprolol succinate 25 mg 12.5 mg (1/2 x 25 mg) PO DAILY #30 12/28/22 12/23/23 Rx tablet,extended release 24 hr tabs (Toprol XL) ergocalciferol (vitamin D2) 1,250 50,000 unit PO WEEKLY Supplement 01/01/23 12/23/23 Rx mcg (50,000 unit) capsule #10 caps prasugrel 10 mg tablet (Effient) 10 mg PO DAILY 90 days #90 tabs 08/19/23 12/23/23 Rx fluticasone fur. 100 mcg-umeclid 1 inh inhalation DAILY 90 days #90 09/23/23 12/23/23 Rx 62.5 mcg-vilant 25 mcg ea inhalat.powder (Trelegy Ellipta) amitriptyline 25 mg tablet 25 mg PO HS #30 tabs 10/30/23 12/23/23 Rx diazepam 10 mg tablet 10 mg PO BID PRN anxiety #60 tabs 10/30/23 12/23/23 Rx methylnaltrexone 150 mg tablet 450 mg (3 x 150 mg) PO DAILY #90 10/30/23 12/02/23 Rx tabs ipratropium 0.5 mg-albuterol 3 mg 3 ml inhalation Q4H PRN wheezing 12/06/23 12/23/23 Rx (2.5 mg base)/3 mL nebulization #180 mL soln nicotine 21 mg/24 hr daily 1 patch transdermal DAILY #28 ea 12/06/23 12/23/23 Rx transdermal patch oxycodone 10 mg tablet 10 mg PO QID PRN pain 30 days #120 12/10/23 12/23/23 Rx tabs amoxicillin 875 mg-potassium 1 tab PO BID 14 days #28 tabs 12/19/23 12/23/23 Rx clavulanate 125 mg tablet prednisone 10 mg tablets in a dose See Rx Instructions PO PER PKG DIR 12/19/23 12/23/23 Rx pack #21 tabs polyethylene glycol 3350 17 17 g PO DAILY #510 grams 12/22/23 12/23/23 Rx gram/dose oral powder (Miralax) albuterol sulfate 90 mcg/actuation 2 puff inhalation Q4HP PRN 12/23/23 12/23/23 History aerosol inhaler (Ventolin HFA) Shortness Of Breath atorvastatin 40 mg tablet 40 mg PO HS 12/23/23 12/23/23 History bupropion HCl 150 mg 24 hr tablet, 150 mg PO DAILY 12/23/23 12/23/23 History extended release buspirone 5 mg tablet 5 mg PO BID 12/23/23 12/23/23 History sodium chloride 0.65 % nasal spray 1 spray intranasal BIDP PRN Dry 12/23/23 12/23/23 History aerosol (Medina Saline) Nasal Passages New Prescriptions to Start Prescriptions: Allergies Allergy/AdvReac Type Severity Reaction Status Date / Time aspirin [ASPIRIN] Allergy Mild Verified 12/02/23 11:57 codeine [CODEINE] Allergy Mild Verified 12/02/23 11:57 ibuprofen [IBUPROFEN] Allergy Unknown Verified 12/02/23 11:57 acetaminophen [From Tylenol] Allergy Verified 12/02/23 11:57 tramadol Allergy Verified 12/02/23 11:57 Results Laboratory Findings 12/24/23 05:25 12/24/23 05:25 ABG ABG pH 7.34 mmol/L (7.35-7.45) L 12/23/23 06:00 ABG pCO2 80.1 mmhg (35.0-45.0) H 12/23/23 06:00 ABG pO2 63.7 mmhg (80-100) L 12/23/23 06:00 ABG O2 Saturation 93 % (90-100) 12/23/23 06:00 PT/INR, D-dimer PT 12.4 seconds (10.1-12.5) 12/22/23 22:17 INR 1.12 (0.9-1.1) H 12/22/23 22:17 Abnormal lab findings: Abnormal Labs 12/22/23 12/22/23 12/22/23 22:17 22:26 23:20 WBC RBC 4.46 L Hgb 13.0 L Hct MCV 101.4 H MCHC 28.9 L Neut % (Auto) Lymph % (Auto) Neut # (Auto) Neutrophils % (Manual) Lymphocytes % (Manual) INR 1.12 H ABG pH ABG pCO2 ABG pO2 ABG HCO3 ABG Total CO2 ABG Base Excess VBG pH 7.17 L VBG pCO2 91.7 H VBG pO2 42.2 H VBG HCO3 32.5 H VBG Total CO2 35.4 H VBG O2 Saturation 74.4 H VBG Base Excess 4.0 H VBG Lactic Acid 2.6 H Sodium 146 H Carbon Dioxide 40 H Anion Gap Glucose 164 H Lactate 2.8 H Calcium 8.3 L AST ALT Ammonia 52 H Total Protein 6.2 L Albumin 3.4 L Albumin/Globulin Ratio Salicylates < 1.0 L Acetaminophen < 10 L U Benzodiazepines Scrn Crossmatch ([facility]) 12/23/23 12/23/23 12/23/23 01:30 06:00 06:16 WBC 10.9 H RBC Hgb 13.9 L Hct MCV 102.0 H MCHC 29.0 L Neut % (Auto) 88.3 H Lymph % (Auto) 6.6 L Neut # (Auto) 9.6 H Neutrophils % (Manual) 88 H Lymphocytes % (Manual) 8 L INR ABG pH 7.34 L ABG pCO2 80.1 H ABG pO2 63.7 L ABG HCO3 42.4 H ABG Total CO2 44.9 H ABG Base Excess 16.7 H VBG pH VBG pCO2 VBG pO2 VBG HCO3 VBG Total CO2 VBG O2 Saturation VBG Base Excess VBG Lactic Acid Sodium Carbon Dioxide 38 H Anion Gap Glucose 101 H D Lactate Calcium 8.0 L AST 62 H D ALT Ammonia Total Protein Albumin 3.4 L Albumin/Globulin Ratio Salicylates Acetaminophen U Benzodiazepines Scrn Positive H Crossmatch ([facility]) 12/23/23 12/23/23 12/23/23 09:00 16:00 16:30 WBC RBC Hgb 11.8 L D Hct 40.6 L MCV MCHC Neut % (Auto) Lymph % (Auto) Neut # (Auto) Neutrophils % (Manual) Lymphocytes % (Manual) INR ABG pH ABG pCO2 ABG pO2 ABG HCO3 ABG Total CO2 ABG Base Excess VBG pH VBG pCO2 63.9 H 62.9 H VBG pO2 60.3 H 48.1 H VBG HCO3 36.5 H 35.2 H VBG Total CO2 38.5 H 37.2 H VBG O2 Saturation 92.6 H 86.1 H VBG Base Excess 11.3 H 9.9 H VBG Lactic Acid Sodium Carbon Dioxide Anion Gap Glucose Lactate Calcium AST ALT Ammonia Total Protein Albumin Albumin/Globulin Ratio Salicylates Acetaminophen U Benzodiazepines Scrn Crossmatch ([facility]) 12/23/23 12/24/23 12/24/23 21:18 03:00 05:25 WBC RBC 3.49 L D Hgb 12.1 L 10.3 L D 10.3 L Hct 41.5 L 35.7 L 34.8 L MCV 99.8 H MCHC 29.6 L Neut % (Auto) Lymph % (Auto) Neut # (Auto) Neutrophils % (Manual) Lymphocytes % (Manual) INR ABG pH ABG pCO2 ABG pO2 ABG HCO3 ABG Total CO2 ABG Base Excess VBG pH VBG pCO2 VBG pO2 VBG HCO3 VBG Total CO2 VBG O2 Saturation VBG Base Excess VBG Lactic Acid Sodium Carbon Dioxide 43 H* Anion Gap 0.0 L Glucose Lactate Calcium 7.9 L AST 16 L D ALT 11 L D Ammonia Total Protein 4.8 L Albumin 2.4 L D Albumin/Globulin Ratio 1.0 L Salicylates Acetaminophen U Benzodiazepines Scrn Crossmatch ([facility]) See Detail 12/24/23 08:02 WBC RBC Hgb Hct MCV MCHC Neut % (Auto) Lymph % (Auto) Neut # (Auto) Neutrophils % (Manual) Lymphocytes % (Manual) INR ABG pH ABG pCO2 ABG pO2 ABG HCO3 ABG Total CO2 ABG Base Excess VBG pH VBG pCO2 64.4 H VBG pO2 187.2 H VBG HCO3 38.5 H VBG Total CO2 40.5 H VBG O2 Saturation 99.1 H VBG Base Excess 13.7 H VBG Lactic Acid Sodium Carbon Dioxide Anion Gap Glucose Lactate Calcium AST ALT Ammonia Total Protein Albumin Albumin/Globulin Ratio Salicylates Acetaminophen U Benzodiazepines Scrn Crossmatch ([facility]) Assessment and Plan *Assessment and plan (1) Acute exacerbation of chronic obstructive pulmonary disease: Status: Acute Category: Medical Code(s): J44.1 - Chronic obstructive pulmonary disease with (acute) exacerbation (2) Pneumonia: Status: Acute Qualifiers: Laterality: left Lung location: lower lobe of lung Category: Medical Code(s): J18.9 - Pneumonia, unspecified organism (3) Acute on chronic respiratory failure with hypoxia and hypercapnia: Status: Acute Category: Medical Code(s): J96.21 - Acute and chronic respiratory failure with hypoxia; J96.22 - Acute and chronic respiratory failure with hypercapnia Plan Mr. Lima is a 58-year-old male greater than [id number] smoking history, COPD, mild worsening respiratory failure presented to the ER with worsening respiratory distress, hypercarbic respiratory failure and also concerns for rectal bleeding. Venous blood gas upon admission concerning for hypercarbic respiratory pH of 7.17 with pCO2 of 91.7. Patient initiate BiPAP therapy with blood gases showing improvement with residual chronic hypercarbic respiratory failure. CTA upon admission no evidence of pulmonary embolism. Small left lower lobe airspace disease noted with no other consolidative changes noted. Retained secretions noted especially in the left lower lobe bronchus concerning for possible aspiration. Mild neutrophilic prominent leukocytosis on admission, improving. COVID-19 and flu PCR panel negative. On initial examination patient appeared to be in mild respiratory distress. No significant wheezing noted on auscultation. Admits worsening cough and productive phlegm prior to hospital admission. VBG from this morning continue to show chronic hypercarbic respiratory failure. Plan: Continue oxygen supplementation to maintain O2 saturation of 90 to 95%. Currently on 1 L saturating 93%. Continue DuoNebs every 6 hours along with Pulmicort every 12 scheduled Change antibiotics to levofloxacin to complete a total of 5-day course. Follow with sputum cultures. Incentive spirometry and flutter valve Activity as tolerated # Thank you for involving pulmonary in this patient care. Will continue to follow. # Patient today also stated insurance coverage issues as a limiting factor to undergo colonoscopy as previously recommended. Will follow-up with social work on the status.
--- NOTE | 2023-12-24 10:06 | HMH.OTEV ---
OT Inpatient Evaluation Rehab OT IP Evaluation Start: 12/23/23 11:41 Freq: ONCE Status: Active Protocol: Document 12/24/23 10:01 BHAVANA (Rec: 12/24/23 10:05 [facility] [id number]) Rehab OT IP Assessment Subjective History Per H&P: This patient a long- term smoker showing indication of COPD emphysema on mini exam has been seen in the emergency room approximately 3 times this year for exacerbation of COPD. Much worse at this point in time with venous blood gas showing increased CO2 decreased O2 with a pH down to 7.17. Requiring BiPAP as patient is quite somnolent but can be aroused. Noting that the patient was seen earlier for rectal bleeding which was felt it was hemorrhoidal and that his hemoglobin was normal. Noting on this visit it is noted that his liver function test AST is elevated to 62 with his ammonia level at 52. Per past medical history could not find any indication of alcohol abuse. Patient noted for receiving cardiac stent approximately January of last year with an ejection fraction greater than 50. Patient does not appear to be malnourished but continues per history and he did acknowledge still smoking probably upwards or over 2 packs a day I do agree with the ER physician that the patient needs to be placed in being placed on BiPAP and try to collect these electrolyte abnormalities making sure there is no cardiac event taking place. Potential for some aspiration pneumonia pneumonitis. Patient also noted is having an abnormal PET scan of the colon in the past Subjective Pt reports he lives alone in a single-story home with ramped entrance. Pt primarily uses a scooter for functional transfers. Pt reports he was IND with transfers and bed mobility prior to admission. Pt also claims he was independent with ADLs, but his brother who lives across the street from him assists with IADLs. Objective Patient Orientation Person,Place,Birthday Right Upper Extremity Gross ROM WFL Left Upper Extremity Gross ROM WFL Bed Mobility bed mobility-scooting,bed mobility - supine/sit Assist Level Minimal x 1 (25% assist) Rehab OT IP prob,goals,plan Problems Date of Evaluation: 12/24/23 OT IP Problems Bed Mobility,Transfers,Balance ,Self care,Safety Rehab Potential Rehab Potential Good Equipment Needs Assistive Devices Rolling / Wheeled Walker Plan OT intervention Plan Bed Mobility,Transfers,Balance ,Self care,Safety,Therapeutic Exercise OT Plan Frequency Daily Duration LOS Discharge Goals Bed Mobility Ability Standby Assistance Sit to Stand Chair Transfer Ability Minimal x 1 (25% assist) Chair Transfer Ability Minimal x 1 (25% assist) Chair Transfer Technique Sit to/from Ambulatory Chair Transfer Assistive Devices Rolling Walker Lower Body Dressing Ability Minimal Assistance Upper Body Dressing Ability Contact Guard Bathing Ability Minimal Assistance Performing Toilet Hygiene Ability Minimal Assistance Overall Commode/Toilet Transfer Ability Minimal Assistance Commode/Toilet Transfer Technique Sit to/from Ambulatory Commode/Toilet Transfer Assistive Grab Bars Devices Oral Care Assist Contact Guard Decrease in Endurance Yes Discharge Plan OT Discharge Plan Initial occupational therapy evaluation performed. Patient presents below baseline at this time in functional mobility, transfers, ADL independence, and strength. Pt unable to initiate stand this date d/t self-reported weakness and wanting to lay back in bed. Pt not safe to return home alone at this time d/t current level of functional ability. OT recommending short-term rehabilitation stay upon d/c from [facility]. Pt may be safe to d/ c home with 24/ assistance by family and OT services if pt demo's improvement with overall function while at [facility]. Pt would benefit from skilled OT while at [facility] to prevent further functional decline and maximize safety. Eval Complexity Eval Charge Codes 00906 - Moderate Complexity PHYSICIAN CERTIFICATION: I certify the specified therapy services for Ancelmo Lima are required, authorized, and reviewed every 30 days.
--- NOTE | 2023-12-24 10:24 | SW/DCPLANNER ---
Addendum entered by Yanira Samson 12/25/23 10:17: I provided this patient w/ information regarding [facility] [employer]. Original Note: I spoke w/ patient this AM regarding plans once medically stable for discharge. PT/OT evaluated patient and recommended SNF level of care. Patient is not interested in placement at this time due to Medicaid and requirements for placement. Patient is not a candidate for home health services due to insurance. Patient's daughter called stating that she will be able to assist patient at home. Patient voiced that he is agreeable to outpatient PT at [facility] once ready for discharge. I will update MD and request an outpatient appointment. Discharge date is unknown at this time.
--- NOTE | 2023-12-24 10:38 | P.PNANES_ITS ---
[facility] Disclaimer: The information contained in this section may have been updated after the patient was seen, as this information can be updated by other users. Medical History Acute on chronic respiratory failure with hypoxia and hypercapnia Acute and chronic respiratory failure with hypoxia Abnormal PET scan of colon CAD in [place] artery Pneumonia Abnormal electrocardiogram [ECG] [EKG] Dyspnea Pseudomonal pneumonia Hyperlipemia HTN (hypertension) Overweight (BMI 25.0-29.9) Pulmonary emphysema Chronic hypoxemic respiratory failure Tobacco abuse disorder Tobacco abuse counseling Screening for lung cancer Smoking greater than 30 pack years Dyspnea on exertion Tobacco use COPD (chronic obstructive pulmonary disease) Surgical History History of repair of ACL History of colonoscopy Family History Other Alcohol abuse Cancer Coronary artery disease Diabetes Emphysema lung Social History Smoking Status: Current every day smoker tobacco type: cigarettes packs per day: 2 second hand exposure: Yes alcohol intake: former substance use type: denies use current occupational status: disabled Travel in the last 8 weeks: None household members: friend(s) housing: house [facility] Anesthesia Checklist Patient Identification Patient Identification: Arm Band and Verbal (Name & ) Structural Data Admitted From: Home Planned Operative Procedure/s: EUA Consent for Planned Operative Procedure(s) Verified: Yes Verified Documents: Surgical Consent and History and Physical NPO Status Verified Time NPO: 00:00 Chart Verification Results Verified: CBC and BMP Additional verifications Anesthesia Reactions: No Hx Blood Transfusions: No Blood Transfusion Reaction: No Airway Assessment C-Spine Mobility Assessed: Yes TMJ Mobility Assessed: Yes Neurological Assessment Level of Consciousness: Awake Hx Seizures: No Numbness or tingling in extremities: No Anesthesia Plan Anesthesia Risk discussed: Yes Anesthesia Plan: Verified ASA Class: III (E) Anesthesia Type: General
[2023-12-24] MEDS: CEFAZOLIN SODIUM 2 GM in 0.9 % SODIUM CHLORIDE 100 ML IV (10:49)
[2023-12-24] MEDS: BUPIVACAINE 0.5% W/EPI 1:200,000 30ML VIAL 30 ML IJ (11:07)
--- NOTE | 2023-12-24 11:18 | EXP.OP.NOTE ---
Date of procedure: 12/24/23 Pre-op Diagnosis:: Rectal bleeding Post-op Diagnosis:: Same Procedure performed:: Rectal exam under anesthesia Surgeon:: Estiven Luis MD TEACHER CCLC:: Loretta Daley Anesthesia: LMA Estimated blood loss (mL): 2 Clinical Note:: Patient is a 58-year-old disabled male allergic to aspirin, codeine, ibuprofen, acetaminophen, tramadol on dual antiplatelet therapy (Effient and aspirin) with history of COPD, tobacco dependence hypertension, hyperlipidemia, coronary artery disease, tobacco abuse who presented to the emergency department on 12/22/2023 with rectal bleeding described as bright red blood per rectum which was attributed to what appeared to be a large area of thrombosed hemorrhoids. He did undergo CT angiogram at that time which revealed no evidence of any active bleeding. He had topical hemostatic applied to the hemorrhoids and this resulted in hemostasis. Plan was for outpatient management with surgical follow-up for his hemorrhoids and he was discharged from the emergency department. Patient reported back to the emergency department in the early intervention specialist hours of 12/23/2023 due to respiratory symptoms. At that time hemorrhoids were hemostatic but he had evidence of hypercarbia. He was admitted for inpatient management. He did develop recurrent bleeding which was appreciable. He did undergo repeat CT angiogram which interestingly at this time revealed findings of acute mild anorectal bleeding. Hemoglobin was 13 upon presentation to the emergency department. This morning it is 10.3. Surgical consultation was ordered for this morning due to his rectal bleeding. Of note, patient had undergone extensive pet scan at outside facility on 07/13/2023 which revealed anorectal junction hypermetabolism. Reportedly, arrangements have been made for patient to have colonoscopy but he has declined preparation. . Operative findings:: He had Kirk circumferential prolapsing hemorrhoids which were friable and bled easily posteriorly. There was evidence of clot with excoriated epithelium consistent with recent bleeding in the left lateral location. This was hemostatic. Operative note:: Consent was obtained and patient was taken to the operating room. He was positioned in supine position. General anesthesia was induced via LMA. He was repositioned in lithotomy position. Perineum was prepped and draped in the standard surgical fashion. Digital examination was performed which revealed prolapsing hemorrhoids. He had evidence of Kirk circumferential prolapsing hemorrhoids in the left lateral, right lateral, and posterior region. Posteriorly the tissues easily bled. In the left lateral location there was evidence of excoriated epithelium with visible clot consistent with recent bleeding. This area was hemostatic. Consideration was being given for possible hemorrhoidectomy. However, was felt that this may result in more bleeding and would not be desirable in this patient with his acute illness. Given the fact that there was no evidence of any active bleeding at this time plan was made to not pursue resection of hemorrhoids. Local anesthetic was infiltrated posteriorly and in the left lateral location where tissues were friable consisting of approximately 20 cc of bupivacaine with epinephrine for anesthetic purposes and hemostatic purposes. A Gelfoam roll was then wrapped with Surgicel and soaked with bupivacaine with epinephrine and inserted into the anorectal vault for topical hemostatic and anesthetic purposes. Absorbent pad was applied. Recommend bowel regimen and holding anticoagulation if possible. May need hemorrhoidectomy in the future once medically stable. Likely by holding anticoagulant and with this topical and injectable hemostatic hopefully no further bleeding ensues. Likely will need to colonoscopy in the future. . Condition: stable Disposition: PACU Complications:: None immediately apparent .
--- NOTE | 2023-12-24 11:32 | P.PNANES_ITS ---
[facility] Anesthesia Record Part I Anesthesia Record I Intake, IV Amount: 100 Hydration: Adequate Estimated blood loss (mL): 0 Urine output (mL): 0 Blood Pressure: 138/84 SaO2: 100 Pulse Rate: 110 Airway Patency: Patent Respiratory Rate: 24 Temperature: 98.4 F Patient is:: Awake Stable to PACU at:: 11:30
[2023-12-24] MEDS: LEVOFLOXACIN/D5W 750 MG/150 ML 750 MG/150 ML PIGGYBACK 100 MG IV (12:14)
[2023-12-24 12:19] LABS: Hemoglobin 10.8 g/dL (14.1-18.0)
--- NOTE | 2023-12-24 12:54 | EXP.ANES.II ---
[facility] Anesthesia Record Part II Anesthesia Record Part II Discharge Time: 12:00 Destination: Surgical Day Care (OP Surgery) PACU nurse assessment reviewed?: Yes Patient Condition:: Good Anesthesia Complications:: None Swallowing reflex intact?: Yes Airway Patency: Patent Cyanosis?: No Blood Pressure: 138/84 SaO2: 100 Respiratory Rate: 20 Pulse Rate: 100 Temperature: 98.4 F Mental Status: Alert & Oriented Pain level:: 0 Nausea and/or vomitting:: None Intake, IV Amount: 0 Hydration: Adequate
[2023-12-24] MEDS: PHENAZOPYRIDINE 200MG TABLET 100 MG PO ×2 (14:11→20:02)
[2023-12-24] MEDS: diazePAM 10MG TABLET 10 MG PO (15:22)
--- NOTE | 2023-12-24 15:44 | PC.NURSE ---
PT IS RESTING IN BED. ALERT AND ORIENTED X4. PT HAS BEEN ANXIOUS OFF AND ON T/O THE SHIFT AND HAS HAD A DIFFICULT TIME GETTING COMFORTABLE. MEDICATED PER MAR FOR ANXIETY AND DISCOMFORT. PT HAS BEEN UP TO THE BSC SEVERAL TIMES SINCE ARRIVING BACK TO THE FLOOR FROM PROCEDURE. PT STATES HE KEEPS FEELING LIKE HE HAS TO HAVE A BOWEL MOVEMENT. PT HAS ONLY PASSED SMALL AMOUNTS OF BLOOD TINGED GEL SUBSTANCE. PT IS ALSO COMPLAINING OF SOME BURNING WITH URINATION. NOTIFIED HOSPITALIST. PYRIDIUM 100 MG ORDERED TID FOR 2 DAYS. PT IS NOW SITTING UP IN THE CHAIR AND HAS BEEN ENCOURAGED TO SIT UP LONG HE CAN TOLERATE. O2 SATURATION HAS MAINTAINED 90-94% ON 1-2 L NC. PT WILL DESAT 86-89% WHEN SLEEPING. LUNG SOUNDS DIMINISHED WITH SCATTERED RHONCHI, FINE CRACKLES (LEFT BASE). POST OP VSS. WILL CONTINUE TO MONITOR.
--- NOTE | 2023-12-24 17:31 | P.PN_ITS ---
Subjective *Date: 12/24/23 *Time: 17:39 Interval history: Patient reports continuous GI bleeding issues. Patient took him to the OR today for rectal expiration of bleeding under anesthesia. Gelfoam dipped in both a cane/epi placed in rectal vault without complication. Patient extremely hungry at procedure and requesting food. Denies chest pain/shortness of breath. Weaned to 1 L oxygen this a.m. prior to evaluation by hospitalist and pulmonology configuration management consultant. Medical Exam Vital signs and Labs for Last 24 Hours: Vital Signs Temp Pulse Pulse Resp BP BP Pulse Ox 12/24/23 17:00 101 H 24 131/73 100 12/24/23 16:43 12/24/23 16:00 110 H 12/24/23 16:00 109 H 20 108/78 L 94 L 12/24/23 15:09 12/24/23 14:52 12/24/23 14:45 101 H 22 147/90 H 93 L 12/24/23 14:15 103 H 24 134/80 93 L 12/24/23 13:45 103 H 24 116/80 96 12/24/23 13:15 105 H 22 125/79 94 L 12/24/23 12:59 12/24/23 12:54 20 12/24/23 12:45 101 H 24 115/68 94 L 12/24/23 12:30 103 H 24 125/71 92 L 12/24/23 12:15 97.6 F 103 H 22 142/81 H 92 L 12/24/23 12:05 103 H 20 135/81 90 L 12/24/23 12:00 110 H 12/24/23 12:00 103 H 20 135/81 90 L 12/24/23 12:00 98.4 F 100 H 20 138/84 100 12/24/23 11:50 98.4 F 109 H 20 133/79 100 12/24/23 11:40 98.4 F 109 H 20 141/83 H 100 12/24/23 11:33 98.4 F 110 H 24 138/84 12/24/23 11:30 98.4 F 108 H 20 147/86 H 97 12/24/23 10:00 111 H 28 H 87/62 L 90 L 12/24/23 09:47 110 H 12/24/23 09:47 109 H 12/24/23 08:27 98.1 F 12/24/23 08:00 120 H 12/24/23 08:00 12/24/23 08:00 117 H 30 H 98/70 L 94 L 12/24/23 07:51 12/24/23 06:42 12/24/23 06:16 114 H 12/24/23 06:16 117 H 12/24/23 06:16 95 12/24/23 06:00 106 H 19 113/67 97 12/24/23 05:00 12/24/23 04:00 90 12/24/23 04:00 12/24/23 04:00 97.4 F L 92 H 22 99/57 L 97 12/24/23 03:00 12/24/23 02:08 103 H 12/24/23 02:08 100 H 12/24/23 02:00 103 H 16 108/58 L 98 12/24/23 01:00 12/24/23 00:00 100 H 12/24/23 00:00 98.1 F 96 H 24 105/55 L 92 L 12/23/23 23:00 12/23/23 22:15 102 H 12/23/23 22:15 104 H 12/23/23 22:00 94 H 24 119/72 93 L 12/23/23 21:00 12/23/23 20:00 110 H 12/23/23 20:00 12/23/23 20:00 97.8 F 105 H 26 H 123/70 91 L 12/23/23 18:55 12/23/23 18:16 105 H 12/23/23 18:16 106 H 12/23/23 18:16 94 L 12/23/23 18:00 105 H 24 116/71 96 O2 Del Method O2 Flow Rate 12/24/23 17:00 Nasal Cannula 2 12/24/23 16:43 Nasal Cannula 2 12/24/23 16:00 12/24/23 16:00 Nasal Cannula 2 12/24/23 15:09 Nasal Cannula 2 12/24/23 14:52 Nasal Cannula 2 12/24/23 14:45 Nasal Cannula 2 12/24/23 14:15 Nasal Cannula 2 12/24/23 13:45 Nasal Cannula 2 12/24/23 13:15 Nasal Cannula 2 12/24/23 12:59 Nasal Cannula 2 12/24/23 12:54 12/24/23 12:45 Nasal Cannula 2 12/24/23 12:30 Nasal Cannula 3 12/24/23 12:15 Nasal Cannula 2 12/24/23 12:05 Nasal Cannula 2 12/24/23 12:00 12/24/23 12:00 Nasal Cannula 2 12/24/23 12:00 Nasal Cannula 2 12/24/23 11:50 Nasal Cannula 2 12/24/23 11:40 Nasal Cannula 2 12/24/23 11:33 12/24/23 11:30 Nasal Cannula 2 12/24/23 10:00 Nasal Cannula 1 12/24/23 09:47 12/24/23 09:47 12/24/23 08:27 12/24/23 08:00 12/24/23 08:00 Nasal Cannula 2.5 12/24/23 08:00 Nasal Cannula 2 12/24/23 07:51 Nasal Cannula 3 12/24/23 06:42 Nasal Cannula 2 12/24/23 06:16 12/24/23 06:16 12/24/23 06:16 Nasal Cannula 2 12/24/23 06:00 Nasal Cannula 2 12/24/23 05:00 Nasal Cannula 2 12/24/23 04:00 12/24/23 04:00 Nasal Cannula 2 12/24/23 04:00 Nasal Cannula 2 12/24/23 03:00 Nasal Cannula 2 12/24/23 02:08 12/24/23 02:08 12/24/23 02:00 Nasal Cannula 2 12/24/23 01:00 Nasal Cannula 2 12/24/23 00:00 12/24/23 00:00 Nasal Cannula 2 12/23/23 23:00 Nasal Cannula 2 12/23/23 22:15 12/23/23 22:15 12/23/23 22:00 Nasal Cannula 2 12/23/23 21:00 Nasal Cannula 2 12/23/23 20:00 12/23/23 20:00 Nasal Cannula 2 12/23/23 20:00 Nasal Cannula 2 12/23/23 18:55 Nasal Cannula 2 12/23/23 18:16 12/23/23 18:16 12/23/23 18:16 Nasal Cannula 2 12/23/23 18:00 Nasal Cannula 2 Intake and Output 12/24/23 12/24/2312/23/24 07:59 15:59 23:59 Intake Total 1150 / 2198 1048 / 2198 Output Total 300 / 700 400 / 700 Balance 850 / 1498 648 / 1498 Intake: Intake, Oral Amount 240 / 240 Intake, Total IV Amount 1150 / 1958 808 / 1958 0.9 % Sodium Chloride 1000ML 1, 1100 / 1658 558 / 1658 000 ml @ 50 mls/hr IV .Q20H HAYDEE Rx#:[id number] Ceftriaxone 1 gm 1 gm In 0.9 % 50 / 50 Sodium Chloride 50 ml @ 100 mls /hr IV Q24H HAYDEE Rx#:[id number] Levofloxacin/D5w 750 mg/150 ml 150 / 150 750 mg In 150 ml @ 100 mls/hr IV Q24H HAYDEE Rx#:[id number] Output: Output, Urine Amount 300 / 700 400 / 700 Other: Number of Unmeasured Voids 0 Weight 84.6 kg Patient Weight 12/24/23 23:59 Weight 84.6 kg Laboratory Results - last 24 hr 12/23/23 21:18: Hgb 12.1 L, Hct 41.5 L, Blood Type O Negative, Antibody Screen Negative, Crossmatch (AHG) See Detail 12/24/23 03:00: Hgb 10.3 L D, Hct 35.7 L 12/24/23 05:25: WBC 6.8 D, RBC 3.49 L D, Hgb 10.3 L, Hct 34.8 L, MCV 99.8 H, MCH 29.6, MCHC 29.6 L, RDW 14.8, Plt Count 209, MPV 8.1, Neut % (Auto) 70.1, Lymph % (Auto) 21.3, [place] % (Auto) 6.4, Eos % (Auto) 1.8, Baso % (Auto) 0.4, Neut # (Auto) 4.7, Lymph # (Auto) 1.4, [place] # (Auto) 0.4, Eos # (Auto) 0.1, Baso # (Auto) 0.0, Sodium 142, Potassium 4.0, Chloride 103, Carbon Dioxide 43 H*, Anion Gap 0.0 L, BUN 16, Creatinine 0.80, Estimated Creat Clear 124, Estimated GFR 100, Est GFR ( Amer) 121 D, Glucose 84, Calcium 7.9 L, Magnesium 2.1, Total Bilirubin 0.5, AST 16 L D, ALT 11 L D, Alkaline Phosphatase 43, Total Protein 4.8 L, Albumin 2.4 L D, Globulin 2.4, Albumin/Globulin Ratio 1.0 L 12/24/23 08:02: VBG pH 7.40, VBG pCO2 64.4 H, VBG pO2 187.2 H, VBG HCO3 38.5 H, VBG Total CO2 40.5 H, VBG O2 Saturation 99.1 H, VBG Base Excess 13.7 H, VBG Lactic Acid 1.0 12/24/23 12:10: Hgb 10.8 L, Hct 37.0 L I & O for Labs for Last 24 Hours: Intake & Output 12/21/23 12/22/23 12/23/23 12/24/23 23:59 23:59 23:59 23:59 Intake Total 584 / 584 2198 / 2198 Output Total 750 / 750 700 / 700 Balance -166 / -166 1498 / 1498 Weight 83.915 kg 85.366 kg 84.6 kg Microbiology Reports for the Last 24 Hours: Microbiology 12/22/23 23:30 Blood Blood Culture - Preliminary NO GROWTH AFTER 24 HOURS 12/22/23 23:20 Blood Blood Culture - Preliminary NO GROWTH AFTER 24 HOURS Head: Present atraumatic ENT: Present normal exam and normal oropharynx Neck: Present normal inspection and full ROM Respiratory: Present prolonged expiratory phase and diminished air movement Cardiac: Present Regular Rate and Regular Rhythm GI: Present soft and normal bowel sounds Rectal (male): Present deferred Extremities: Present normal inspection, full ROM and normal capillary refill Skin: Present intact and dry Assessment and Plan *Assessment and plan (1) Acute on chronic respiratory failure with hypoxia and hypercapnia: Status: Acute Category: Medical Code(s): J96.21 - Acute and chronic respiratory failure with hypoxia; J96.22 - Acute and chronic respiratory failure with hypercapnia (2) Anemia: Status: Acute Category: Medical Code(s): D64.9 - Anemia, unspecified (3) Rectal bleeding: Status: Acute Category: Medical Code(s): K62.5 - Hemorrhage of anus and rectum (4) Tobacco dependence: Status: Acute Category: Medical Code(s): F17.200 - Nicotine dependence, unspecified, uncomplicated (5) CO2 retention: Status: Acute Category: Medical Code(s): E87.29 - Other acidosis Plan Assessment 55-year-old with past medical history of COPD, pulmonary/liver nodules, hypertension, active smoker, hyperlipidemia, anxiety presents with acute on chronic melena and shortness of breath. Patient had positive PET scan June 2023 with questionable rectal mass, but for some reason was lost to follow-up. Denies ever receiving EGD/colonoscopy. Extremely well-known to pulmonology configuration management consultant. COPD exacerbation: ? 12/23 continue to wean oxygen as tolerated, prednisone, scheduled nebulization treatments, as needed albuterol, IV Levaquin. Appreciate pulmonology assistance! GI bleeding secondary to hemorrhoids: ? 12/23 appreciate general surgery assistance estimation point patient taken to the OR for rectal examination under anesthesia. A Gelfoam roll was then wrapped with Surgicel and soaked with bupivacaine with epinephrine and inserted into the anorectal vault for topical hemostatic and anesthetic purposes. Absorbent pad was applied. Will continue conservative care for hemorrhoids. ?Continue following H&H's during hospitalization. Patient may require EGD/colonoscopy in near future. Denies ever having EGD/colonoscopy in past for unknown reasons. Admits to GI bleeding issues over past 5 to 6 years. Active smoker: Nicotine patches as needed. Smoking cessation advice given during h ospitalization. PPx: SCDs given bleeding issues CODE STATUS full FEN: Cardiac diet Disposition: ? Patient remain in house until hemodynamically stable. Hopefully patient will be acceptable for hospital disposition within next 48 hours, if hemoglobin remained stable, and GI bleeding issues controlled. Patient will also need to be at oxygen baseline prior to hospital disposition decisions.
[2023-12-24] MEDS: PANTOPRAZOLE 40MG TABLET 40 MG PO (20:02)
[2023-12-24] MEDS: ATORVASTATIN 40MG TABLET 40 MG PO (20:02)
[2023-12-24] MEDS: AMITRIPTYLINE 25MG TABLET 25 MG PO (20:02)
[2023-12-25] VITALS (14 sets, daily range): BP systolic 84–136; BP diastolic 52–78; PULSE 78–121; RESP 12–23; TEMP 36.4–36.8; O2SAT 93–100; BMI 26.4
--- NOTE | 2023-12-25 04:53 | PC.NURSE ---
Alert and oriented. Complained of pain 1 time, treated per jun. Remains on 2L NC, O2 sat >90%. Pt has rested very well throughout the night. Got up to bedside commode one time this shift. Bright red blood noted on mesh underwear and ezekiel pad under patient in a small amount. Pt has had no other complaints. Lung sounds diminished, rhonchi noted. Maldonado in place and draining bright orange urine due to medication. Bed alarm on. Call light in reach.
[2023-12-25] MEDS: IPRATROPIUM/ALBUTEROL 3 ML NEB IH (06:15)
[2023-12-25] MEDS: BUDESONIDE 0.5MG/2ML NEB 0.5 MG IH (06:15)
[2023-12-25 06:39] LABS: Alanine Aminotransferase 8 U/L (12-78); Albumin Level 2.4 g/dl (3.5-5.0); Alkaline Phosphatase 43 U/L (38-126); Aspartate Amino Transferase 15 U/L (17-59); Bilirubin,Total 0.7 mg/dl (0.2-1.3); Blood Urea Nitrogen 16 mg/dl (9-20); Chloride 98 mmol/L (98-107); Creatinine Clearance Estimated 125 mL/min (50-200); Estimated Glomerular Filt Rate 100 ml/min (>60); GFR (African American) 121 ML/MIN (>60); Globulin 2.5 g/dL (1.3-3.2); Glucose 93 mg/dl (74-100); Potassium 4.1 mmoL/L (3.5-5.1); Sodium 140 mmol/L (136-145); Total Protein,Serum 4.9 g/dl (6.3-8.2)
[2023-12-25] MEDS: OXYCODONE 5MG IMMEDIATE RELEASE TABLET 5 MG PO (06:52)
[2023-12-25 07:02] LABS: Anion Gap 2.1 mEq/L (5-15); Carbon Dioxide 44 mmol/L (22.0-30.0)
--- NOTE | 2023-12-25 08:38 | EXP.SURG.PN ---
Subjective Patient reports: feels better Narrative: Per nursing and per patient he has had much less to no real bleeding since his procedure yesterday. Exam Data for Last 24 hours Vital signs and Labs for Last 24 Hours: Temp Pulse Resp BP Pulse Ox O2 Del Method O2 Flow Rate 97.6 F 97 H 22 84/54 L 94 L Nasal Cannula 2 12/25/23 08:01 12/25/23 08:00 12/25/23 08:00 12/25/23 08:00 12/25/23 08:00 12/25/23 08:00 12/25/23 08:00 FiO2 28 12/24/23 18:45 Laboratory Results - last 24 hr 12/23/23 21:18: Blood Type O Negative, Antibody Screen Negative, Crossmatch (AHG) See Detail 12/24/23 08:02: VBG pH 7.40, VBG pCO2 64.4 H, VBG pO2 187.2 H, VBG HCO3 38.5 H, VBG Total CO2 40.5 H, VBG O2 Saturation 99.1 H, VBG Base Excess 13.7 H, VBG Lactic Acid 1.0 12/24/23 12:10: Hgb 10.8 L, Hct 37.0 L 12/25/23 05:26: Sodium 140, Potassium 4.1, Chloride 98, Carbon Dioxide 44 H*, Anion Gap 2.1 L, BUN 16, Creatinine 0.80, Estimated Creat Clear 125, Estimated GFR 100, Est GFR ( Amer) 121, Glucose 93, Calcium 8.0 L, Total Bilirubin 0.7, AST 15 L, ALT 8 L D, Alkaline Phosphatase 43, Total Protein 4.9 L, Albumin 2.4 L, Globulin 2.5, Albumin/Globulin Ratio 1.0 L I & O for Last 24 hours: Intake & Output 12/22/23 12/23/23 12/24/23 12/25/23 11:59 11:59 11:59 11:59 Intake Total 464 / 464 1370 / 1370 1728 / 1728 Output Total 350 / 350 1100 / 1100 1250 / 1250 Balance 114 / 114 270 / 270 478 / 478 Weight 188 lb 3.197 oz 186 lb 8.177 oz 188 lb 8 oz Microbiology Reports for the Last 24 Hours: Microbiology 12/22/23 23:20 Blood Blood Culture - Preliminary NO GROWTH AFTER 48 HOURS 12/22/23 23:30 Blood Blood Culture - Preliminary NO GROWTH AFTER 48 HOURS Constitutional Constitutional: no acute distress *Routine Respiratory Exam Respiratory: Absent respiratory distress *Routine Cardiovascular Exam Cardiovascular: Absent tachycardia Progress Note: A&P Assessment and plan (1) Rectal bleeding: Status: Acute Assessment and plan: Improved status post examination under anesthesia. Questionable concomitant pathology (note hypermetabolism on PET scan). (See numbers 3 and 4 below) (2) Bleeding hemorrhoids: Status: Acute (3) Abnormal gastrointestinal PET scan: Problem details: Anorectal junction hypermetabolism noted on prior PET scan (questionable correlation with known bleeding hemorrhoids) Status: Acute Assessment and plan: The patient plans ongoing discussion during his follow-up appointment (status post examination under anesthesia) with Dr. Luis. (4) Anemia: Status: Acute Assessment and plan: Follow-up a.m. labs
[2023-12-25] MEDS: SODIUM CHLORIDE NASAL SPRAY 44ML NS (08:42)
[2023-12-25] MEDS: BUSPIRONE HCL 5 MG TABLET PO ×2 (08:43→20:14)
[2023-12-25] MEDS: buPROPion HCl SR 150MG TAB 150 MG PO (08:43)
[2023-12-25] MEDS: PHENAZOPYRIDINE 200MG TABLET 100 MG PO ×3 (08:43→20:14)
[2023-12-25] MEDS: predniSONE 20MG TAB 40 MG PO (08:43)
[2023-12-25] MEDS: NICOTINE 21MG/24HR PATCH 21 MG TD (08:44)
[2023-12-25] MEDS: DOCUSATE SODIUM 100 MG CAPSULE PO (08:44)
[2023-12-25 08:45] LABS: Basophils % 0.4 % (0.1-2.0); Eosinophils # 0.1 K/mm3 (0.0-0.4); Eosinophils % 1.1 % (0.1-12.0); Hematocrit 31.3 % (42.0-52.0); Lymphocytes # 1.5 K/mm3 (0.7-4.5); Lymphocytes % 17.9 % (10-50); Mean Corpuscular HGB Conc 30.3 g/dL (31.8-35.4); Mean Corpuscular Hemoglobin 29.7 pg (27.0-31.2); Mean Platelet Volume 8.3 fl (7.4-10.4); Monocytes # 0.5 K/mm3 (0.1-1.0); Monocytes % 6.3 % (1.7-9.3); Neutrophils # 6.1 K/mm3 (1.8-7.8); Neutrophils % 74.3 % (37.0-80.0); Platelet Count 222 K/mm3 (142-424); Red Blood Count 3.19 M/mm3 (4.60-6.20); Red Cell Distribution Width 14.7 % (11.5-17.5); White Blood Count 8.2 K/mm3 (4.8-10.8)
[2023-12-25 08:52] LABS: Hemoglobin 9.5 g/dL (14.1-18.0)
--- NOTE | 2023-12-25 09:25 | EXP.PULM.PN ---
Subjective *Date: 12/25/23 *Time: 10:10 Interval history: No acute respiratory vents overnight. Patient denies any new respiratory complaints. Pulmonology Exam Inpatient Vital signs and Labs for Last 24 Hours: Temp Pulse Resp BP Pulse Ox O2 Del Method O2 Flow Rate 97.6 F 97 H 22 84/54 L 94 L Nasal Cannula 2 12/25/23 08:01 12/25/23 08:00 12/25/23 08:00 12/25/23 08:00 12/25/23 08:00 12/25/23 08:00 12/25/23 08:00 FiO2 28 12/24/23 18:45 Laboratory Results - last 24 hr 12/23/23 21:18: Blood Type O Negative, Antibody Screen Negative, Crossmatch (AHG) See Detail 12/24/23 12:10: Hgb 10.8 L, Hct 37.0 L 12/25/23 05:26: WBC 8.2, RBC 3.19 L, Hgb 9.5 L D, Hct 31.3 L, MCV 98.0 H, MCH 29.7, MCHC 30.3 L, RDW 14.7, Plt Count 222, MPV 8.3, Neut % (Auto) 74.3, Lymph % (Auto) 17.9, [place] % (Auto) 6.3, Eos % (Auto) 1.1, Baso % (Auto) 0.4, Neut # (Auto) 6.1, Lymph # (Auto) 1.5, [place] # (Auto) 0.5, Eos # (Auto) 0.1, Baso # (Auto) 0.0, Sodium 140, Potassium 4.1, Chloride 98, Carbon Dioxide 44 H*, Anion Gap 2.1 L, BUN 16, Creatinine 0.80, Estimated Creat Clear 125, Estimated GFR 100, Est GFR ( Amer) 121, Glucose 93, Calcium 8.0 L, Total Bilirubin 0.7, AST 15 L, ALT 8 L D, Alkaline Phosphatase 43, Total Protein 4.9 L, Albumin 2.4 L, Globulin 2.5, Albumin/Globulin Ratio 1.0 L Temp Pulse Resp BP Pulse Ox O2 Del Method O2 Flow Rate 98.1 F 117 H 30 H 98/70 L 94 L Nasal Cannula 2.5 12/24/23 08:27 12/24/23 08:00 12/24/23 08:00 12/24/23 08:00 12/24/23 08:00 12/24/23 08:00 12/24/23 08:00 FiO2 30 12/23/23 06:14 Laboratory Results - last 24 hr 12/23/23 10:44: POC Glucose 102 12/23/23 16:00: VBG pH 7.37, VBG pCO2 62.9 H, VBG pO2 48.1 H, VBG HCO3 35.2 H, VBG Total CO2 37.2 H, VBG O2 Saturation 86.1 H, VBG Base Excess 9.9 H, VBG Lactic Acid 1.1 12/23/23 16:30: Hgb 11.8 L D, Hct 40.6 L 12/23/23 21:18: Hgb 12.1 L, Hct 41.5 L, Blood Type O Negative, Antibody Screen Negative, Crossmatch (AHG) See Detail 12/24/23 03:00: Hgb 10.3 L D, Hct 35.7 L 12/24/23 05:25: WBC 6.8 D, RBC 3.49 L D, Hgb 10.3 L, Hct 34.8 L, MCV 99.8 H, MCH 29.6, MCHC 29.6 L, RDW 14.8, Plt Count 209, MPV 8.1, Neut % (Auto) 70.1, Lymph % (Auto) 21.3, [place] % (Auto) 6.4, Eos % (Auto) 1.8, Baso % (Auto) 0.4, Neut # (Auto) 4.7, Lymph # (Auto) 1.4, [place] # (Auto) 0.4, Eos # (Auto) 0.1, Baso # (Auto) 0.0, Sodium 142, Potassium 4.0, Chloride 103, Carbon Dioxide 43 H*, Anion Gap 0.0 L, BUN 16, Creatinine 0.80, Estimated Creat Clear 124, Estimated GFR 100, Est GFR ( Amer) 121 D, Glucose 84, Calcium 7.9 L, Magnesium 2.1, Total Bilirubin 0.5, AST 16 L D, ALT 11 L D, Alkaline Phosphatase 43, Total Protein 4.8 L, Albumin 2.4 L D, Globulin 2.4, Albumin/Globulin Ratio 1.0 L 09/03/24 08:02: VBG pH 7.40, VBG pCO2 64.4 H, VBG pO2 187.2 H, VBG HCO3 38.5 H, VBG Total CO2 40.5 H, VBG O2 Saturation 99.1 H, VBG Base Excess 13.7 H, VBG Lactic Acid 1.0 I & O for Labs for Last 24 Hours: Intake & Output 12/22/23 12/23/23 12/24/23 12/25/23 23:59 23:59 23:59 23:59 Intake Total 584 / 584 2738 / 2738 240 / 240 Output Total 750 / 750 1150 / 1650 800 / 800 Balance -166 / -166 1588 / 1088 -560 / -560 Weight 185 lb 0.014 oz 188 lb 3.197 oz 186 lb 8.177 oz 188 lb 8 oz Intake & Output 12/21/23 12/22/23 12/23/23 12/24/23 23:59 23:59 23:59 23:59 Intake Total 584 / 584 1150 / 1150 Output Total 750 / 750 300 / 300 Balance -166 / -166 850 / 850 Weight 185 lb 0.014 oz 188 lb 3.197 oz 186 lb 8.177 oz Microbiology Reports for the Last 24 Hours: Microbiology 12/22/23 23:20 Blood Blood Culture - Preliminary NO GROWTH AFTER 48 HOURS 12/22/23 23:30 Blood Blood Culture - Preliminary NO GROWTH AFTER 48 HOURS Microbiology 12/22/23 23:30 Blood Blood Culture - Preliminary NO GROWTH AFTER 24 HOURS 12/22/23 23:20 Blood Blood Culture - Preliminary NO GROWTH AFTER 24 HOURS Constitutional: Present moderate distress Head: Present normocephalic and atraumatic ENT: Present normal exam, normal oropharynx and mucous membranes moist Neck: Present normal inspection and full ROM Respiratory: Present respiratory distress, diminished air movement and able to speak in complete sentences; Absent wheezes Cardiac: Present S1/S2, Tachycardia and radial pulses present GI: Present soft and distention; Absent tenderness or guarding Skin: Present intact; Absent cyanosis or jaundice Neuro: Present alert, awake and oriented x 3 Extremities: Present normal inspection; Absent clubbing or cyanosis Psychiatric: Present normal affect and cooperative Assessment and Plan *Assessment and plan (1) Acute exacerbation of chronic obstructive pulmonary disease: Status: Acute Category: Medical Code(s): J44.1 - Chronic obstructive pulmonary disease with (acute) exacerbation (2) Pneumonia: Status: Acute Qualifiers: Laterality: left Lung location: lower lobe of lung Category: Medical Code(s): J18.9 - Pneumonia, unspecified organism (3) Acute on chronic respiratory failure with hypoxia and hypercapnia: Status: Acute Category: Medical Code(s): J96.21 - Acute and chronic respiratory failure with hypoxia; J96.22 - Acute and chronic respiratory failure with hypercapnia Plan Mr. Lima is a 58-year-old male greater than [id number] smoking history, COPD, mild worsening respiratory failure presented to the ER with worsening respiratory distress, hypercarbic respiratory failure and also concerns for rectal bleeding. Venous blood gas upon admission concerning for hypercarbic respiratory pH of 7.17 with pCO2 of 91.7. Patient initiate BiPAP therapy with blood gases showing improvement with residual chronic hypercarbic respiratory failure. CTA upon admission no evidence of pulmonary embolism. Small left lower lobe airspace disease noted with no other consolidative changes noted. Retained secretions noted especially in the left lower lobe bronchus concerning for possible aspiration. Mild neutrophilic prominent leukocytosis on admission, improving. COVID-19 and flu PCR panel negative. On initial examination patient appeared to be in mild respiratory distress. No significant wheezing noted on auscultation. Admits worsening cough and productive phlegm prior to hospital admission. VBG from this morning continue to show chronic hypercarbic respiratory failure. Interval update: No acute respiratory vents overnight. Continue to receive levofloxacin. No significant wheezing. Rhonchorous breath sounds. Stable on supplements at 1 to 2 L nasal cannula. Plan: Continue oxygen supplementation to maintain O2 saturation of 90 to 95%. Continue DuoNebs every 6 hours along with Pulmicort every 12 scheduled Continue levofloxacin for a total of 5 days. Will do sputum induction today. Follow with sputum cultures. Incentive spirometry and flutter valve Activity as tolerated # Thank you for involving pulmonary in this patient care. Will continue to follow. # Appreciate social works support in facilitating patient's compliance with his outpatient appointments.
[2023-12-25] MEDS: LEVOFLOXACIN/D5W 750 MG/150 ML 750 MG/150 ML PIGGYBACK 100 MG IV (10:17)
[2023-12-25] MEDS: SODIUM CHLORIDE 3% 15ML NEB 3 ML IH (13:00)
--- NOTE | 2023-12-25 14:37 | PC.NURSE ---
PT IS SITTING UP IN THE CHAIR. ALERT AND ORIENTED X4. PT HAS BEEN SLEEPING OFF AND ON T/O THE SHIFT. STATES HE DID NOT SLEEP WELL LAST NIGHT. PARTICIPATED WITH PT/OT. LUNG SOUNDS DIMINISHED WITH SCATTERED RHONCHI. ABDOMEN SOFT/NON TENDER WITH ACTIVE BOWEL SOUNDS. PT HAS HAD A COUPLE OF SMALL HARD STOOLS WITH SMALL AMOUNTS OF BRIGHT RED BLOOD NOTED. NO SWELLING NOTED TO BLE. O2 SATURATION HAS MAINTAINED 92-96% ON 2 L NC. WILL CONTINUE TO MONITOR.
[2023-12-25] MEDS: POLYETHYLENE GLYCOL 3350 17 GM PACKET PO (15:44)
--- NOTE | 2023-12-25 17:34 | EXP.ACUTE.PN ---
Subjective *Date: 12/25/23 *Time: 17:38 Interval history: Patient's respiratory status back to baseline. Patient still suffering from rectal bleeding. Patient's hemoglobin still falling, with low blood pressures throughout day. Patient weaker versus yesterday examination. Medical Exam Vital signs and Labs for Last 24 Hours: Vital Signs Temp Pulse Pulse Resp BP Pulse Ox O2 Del Method 12/25/23 17:00 Nasal Cannula 12/25/23 16:39 98.2 F 98 H 20 95/56 L 99 Nasal Cannula 12/25/23 14:42 Nasal Cannula 12/25/23 13:00 78 18 12/25/23 12:51 Nasal Cannula 12/25/23 12:00 110 H 12/25/23 11:19 97.9 F 91 H 22 110/63 99 Nasal Cannula 12/25/23 11:00 Nasal Cannula 12/25/23 10:00 91 H 20 102/64 L 93 L Nasal Cannula 12/25/23 08:01 97.6 F 12/25/23 08:00 110 H 12/25/23 08:00 97 H 22 84/54 L 94 L Nasal Cannula 12/25/23 07:26 Nasal Cannula 12/25/23 07:25 Nasal Cannula 12/25/23 06:56 Nasal Cannula 12/25/23 06:17 103 H 12/25/23 06:17 99 H 12/25/23 06:17 100 Nasal Cannula 12/25/23 06:00 99 H 23 100/52 L 100 Nasal Cannula 12/25/23 04:51 Nasal Cannula 12/25/23 04:00 100 H 12/25/23 04:00 Nasal Cannula 12/25/23 04:00 98.2 F 107 H 22 105/71 L 95 Nasal Cannula 12/25/23 03:00 Nasal Cannula 12/25/23 02:00 110 H 20 122/67 96 Nasal Cannula 12/25/23 00:50 Nasal Cannula 12/25/23 00:00 80 12/25/23 00:00 98.1 F 87 12 111/53 L 99 Nasal Cannula 12/24/23 23:16 88 12/24/23 22:53 Nasal Cannula 12/24/23 22:00 88 12 121/70 99 Nasal Cannula 12/24/23 20:55 Nasal Cannula 12/24/23 20:00 110 H 09/03/24 20:00 Nasal Cannula 12/24/23 20:00 97.7 F 100 H 13 121/71 99 Nasal Cannula 12/24/23 18:45 Nasal Cannula, BiPAP 12/24/23 18:45 103 H 12/24/23 18:44 109 H 12/24/23 18:31 Nasal Cannula 12/24/23 18:00 113 H 24 121/69 100 Nasal Cannula O2 Flow Rate FiO2 12/25/23 17:00 2 12/25/23 16:39 3 12/25/23 14:42 2 12/25/23 13:00 12/25/23 12:51 2 12/25/23 12:00 12/25/23 11:19 2 12/25/23 11:00 2 12/25/23 10:00 2 12/25/23 08:01 12/25/23 08:00 12/25/23 08:00 2 12/25/23 07:26 2 12/25/23 07:25 2 12/25/23 06:56 2 12/25/23 06:17 12/25/23 06:17 12/25/23 06:17 3 12/25/23 06:00 2 12/25/23 04:51 2 12/25/23 04:00 12/25/23 04:00 2 12/25/23 04:00 2 12/25/23 03:00 2 12/25/23 02:00 2 12/25/23 00:50 2 12/25/23 00:00 12/25/23 00:00 2 12/24/23 23:16 12/24/23 22:53 2 12/24/23 22:00 2 12/24/23 20:55 2 12/24/23 20:00 12/24/23 20:00 2 12/24/23 20:00 2 12/24/23 18:45 2 28 12/24/23 18:45 12/24/23 18:44 12/24/23 18:31 2 12/24/23 18:00 2 Intake and Output 12/25/23 12/25/23 12/25/23 07:59 15:59 23:59 Intake Total 510 / 510 Output Total 800 / 800 0 / 800 Balance -800 / -290 510 / -290 0 / -290 Intake: Intake, Oral Amount 360 / 360 Intake, Total IV Amount 150 / 150 Levofloxacin/D5w 750 mg/150 ml 150 / 150 750 mg In 150 ml @ 100 mls/hr IV Q24H [facility] Rx#:[id number] Output: Output, Urine Amount 800 / 800 0 / 800 Other: Number of Unmeasured Voids 0 1 Number of Bowel Movements 1 1 Weight 85.502 kg 85.5 kg Patient Weight 12/25/23 23:59 Weight 85.5 kg Laboratory Results - last 24 hr 12/23/23 21:18: Blood Type O Negative, Antibody Screen Negative, Crossmatch (AHG) See Detail 12/25/23 05:26: WBC 8.2, RBC 3.19 L, Hgb 9.5 L D, Hct 31.3 L, MCV 98.0 H, MCH 29.7, MCHC 30.3 L, RDW 14.7, Plt Count 222, MPV 8.3, Neut % (Auto) 74.3, Lymph % (Auto) 17.9, [place] % (Auto) 6.3, Eos % (Auto) 1.1, Baso % (Auto) 0.4, Neut # (Auto) 6.1, Lymph # (Auto) 1.5, [place] # (Auto) 0.5, Eos # (Auto) 0.1, Baso # (Auto) 0.0, Sodium 140, Potassium 4.1, Chloride 98, Carbon Dioxide 44 H*, Anion Gap 2.1 L, BUN 16, Creatinine 0.80, Estimated Creat Clear 125, Estimated GFR 100, Est GFR ( Amer) 121, Glucose 93, Calcium 8.0 L, Total Bilirubin 0.7, AST 15 L, ALT 8 L D, Alkaline Phosphatase 43, Total Protein 4.9 L, Albumin 2.4 L, Globulin 2.5, Albumin/Globulin Ratio 1.0 L I & O for Labs for Last 24 Hours: Intake & Output 12/22/23 12/23/23 12/24/23 12/25/23 23:59 23:59 23:59 23:59 Intake Total 584 / 584 2738 / 2738 510 / 510 Output Total 750 / 750 1150 / 1650 800 / 800 Balance -166 / -166 1588 / 1088 -290 / -290 Weight 83.915 kg 85.366 kg 84.6 kg 85.5 kg Microbiology Reports for the Last 24 Hours: Microbiology 12/22/23 23:20 Blood Blood Culture - Preliminary NO GROWTH AFTER 48 HOURS 12/22/23 23:30 Blood Blood Culture - Preliminary NO GROWTH AFTER 48 HOURS Constitutional: Present mild distress and chronically ill appearing Head: Present atraumatic and normocephalic ENT: Present normal exam and normal oropharynx Neck: Present normal inspection and full ROM Respiratory: Present prolonged expiratory phase and diminished air movement Cardiac: Present Tachycardia GI: Present soft and normal bowel sounds Rectal (male): Present deferred (male): Present deferred Extremities: Present normal inspection and full ROM Skin: Present intact Assessment and Plan *Assessment and plan (1) Abnormal gastrointestinal PET scan: Problem Comment: Anorectal junction hypermetabolism noted on prior PET scan (questionable correlation with known bleeding hemorrhoids) Status: Acute Category: Medical Code(s): R94.8 - Abnormal results of function studies of other organs and systems (2) Acute on chronic respiratory failure with hypoxia and hypercapnia: Status: Acute Category: Medical Code(s): J96.21 - Acute and chronic respiratory failure with hypoxia; J96.22 - Acute and chronic respiratory failure with hypercapnia (3) Anemia: Status: Acute Category: Medical Code(s): D64.9 - Anemia, unspecified (4) Rectal bleeding: Status: Acute Category: Medical Code(s): K62.5 - Hemorrhage of anus and rectum (5) Bleeding hemorrhoids: Status: Acute Category: Medical Code(s): K64.9 - Unspecified hemorrhoids Plan 55-year-old with past medical history of COPD, pulmonary/liver nodules, hypertension, active smoker, hyperlipidemia, anxiety presents with acute on chronic melena and shortness of breath. Patient had positive PET scan June 2023 with questionable rectal mass, but for some reason was lost to follow-up. Denies ever receiving EGD/colonoscopy. Extremely well-known to pulmonology tax consultant. Status post OR exploration 12/23 with hemorrhoid rectal packing performed. COPD exacerbation: ?12/24 patient COPD at clinical baseline. Okay to discharge patient from pulmonary perspective. ? 12/23 continue to wean oxygen as tolerated, prednisone, scheduled nebulization treatments, as needed albuterol, IV Levaquin. Appreciate pulmonology assistance! GI bleeding secondary to hemorrhoids: ?12/24 still suffering from hypotension. Continue maintenance IV fluids. Give 1 L bolus today. Check hemoglobin 1700, and if falling consider blood transfusion. ? 12/23 appreciate general surgery assistance estimation point patient taken to the OR for rectal examination under anesthesia. A Gelfoam roll was then wrapped with Surgicel and soaked with bupivacaine with epinephrine and inserted into the anorectal vault for topical hemostatic and anesthetic purposes. Absorbent pad was applied. Will continue conservative care for hemorrhoids. ?Continue following H&H's during hospitalization. Patient may require EGD/colonoscopy in near future. Denies ever having EGD/colonoscopy in past for unknown reasons. Admits to GI bleeding issues over past 5 to 6 years. Active smoker: Nicotine patches as needed. Smoking cessation advice given during hospitalization. PPx: SCDs given bleeding issues CODE STATUS full FEN: Cardiac diet Disposition: ? Patient remain in house until hemodynamically stable. Hopefully patient will be acceptable for hospital disposition within next 48 hours, if hemoglobin remained stable, and GI bleeding issues controlled.
[2023-12-25 18:14] LABS: Hematocrit 34.7 % (42.0-52.0)
[2023-12-25] MEDS: 0.9 % SODIUM CHLORIDE 1000ML 1,000 ML 500 ML IV (18:21)
[2023-12-25] MEDS: PANTOPRAZOLE 40MG VIAL 40 MG IV (20:13)
[2023-12-25] MEDS: AMITRIPTYLINE 25MG TABLET 25 MG PO (20:14)
[2023-12-25] MEDS: ATORVASTATIN 40MG TABLET 40 MG PO (20:14)
[2023-12-25] MEDS: SODIUM CHLORIDE 0.9% 10ML VIAL 10 ML IV (20:14)
--- NOTE | 2023-12-25 20:22 | PC.NURSE ---
after evening meds and assessment patient stated I want to be left alone and to sleep tonight when questioned if he needs anything else.
[2023-12-26] VITALS: BP 100/52; PULSE 111; RESP 16; TEMP 36.9; O2SAT 98
[2023-12-26 04:00] VITALS: BP 100/51; PULSE 118; RESP 20; TEMP 36.4; O2SAT 97; BMI 26.4
--- NOTE | 2023-12-26 05:56 | PC.NURSE ---
no acute changes overnight. denies any rectal bleeding or pain t/o shift. remains on 2L NC.
[2023-12-26] MEDS: FLUTICASONE/UMECLIDIN/VILANTER 100/62.5/25MCG INHALER 1 PUFF IH (05:59)
[2023-12-26 06:46] LABS: Basophils % 0.1 % (0.1-2.0); Eosinophils # 0.1 K/mm3 (0.0-0.4); Eosinophils % 0.8 % (0.1-12.0); Hematocrit 32.4 % (42.0-52.0); Lymphocytes # 1.1 K/mm3 (0.7-4.5); Lymphocytes % 18.5 % (10-50); Mean Corpuscular HGB Conc 29.9 g/dL (31.8-35.4); Mean Corpuscular Hemoglobin 29.7 pg (27.0-31.2); Mean Corpuscular Volume 99.2 fl (80-94); Mean Platelet Volume 8.7 fl (7.4-10.4); Monocytes # 0.3 K/mm3 (0.1-1.0); Monocytes % 5.5 % (1.7-9.3); Neutrophils # 4.5 K/mm3 (1.8-7.8); Neutrophils % 75.1 % (37.0-80.0); Platelet Count 187 K/mm3 (142-424); Red Blood Count 3.27 M/mm3 (4.60-6.20)
[2023-12-26 06:48] LABS: Alanine Aminotransferase 7 U/L (12-78); Albumin Level 2.6 g/dl (3.5-5.0); Albumin/Globulin Ratio 1.1 (1.1-1.8); Alkaline Phosphatase 37 U/L (38-126); Aspartate Amino Transferase 15 U/L (17-59); Bilirubin,Total 0.6 mg/dl (0.2-1.3); Blood Urea Nitrogen 14 mg/dl (9-20); Chloride 98 mmol/L (98-107); Creatinine Clearance Estimated 143 mL/min (50-200); Estimated Glomerular Filt Rate 117 ml/min (>60); GFR (African American) 141 ML/MIN (>60); Globulin 2.4 g/dL (1.3-3.2); Glucose 95 mg/dl (74-100); Potassium 4.1 mmoL/L (3.5-5.1); Sodium 139 mmol/L (136-145)
[2023-12-26 07:19] LABS: Hemoglobin 9.7 g/dL (14.1-18.0)
[2023-12-26 07:23] LABS: Anion Gap 2.1 mEq/L (5-15); Carbon Dioxide 43 mmol/L (22.0-30.0)
[2023-12-26 07:44] VITALS: BP 104/62; PULSE 115; RESP 16; TEMP 36.5; O2SAT 98
[2023-12-26] MEDS: SODIUM CHLORIDE NASAL SPRAY 44ML NS (09:09)
[2023-12-26] MEDS: SODIUM CHLORIDE 0.9% 10ML VIAL 10 ML IV (09:09)
[2023-12-26] MEDS: PANTOPRAZOLE 40MG VIAL 40 MG IV (09:09)
[2023-12-26] MEDS: METOPROLOL SUCCINATE XL 25MG TABLET 12.5 MG PO (09:10)
[2023-12-26] MEDS: DOCUSATE SODIUM 100 MG CAPSULE PO (09:10)
[2023-12-26] MEDS: buPROPion HCl SR 150MG TAB 150 MG PO (09:10)
[2023-12-26] MEDS: PHENAZOPYRIDINE 200MG TABLET 100 MG PO (09:10)
[2023-12-26] MEDS: BUSPIRONE HCL 5 MG TABLET PO (09:11)
[2023-12-26] MEDS: NICOTINE 21MG/24HR PATCH 21 MG TD (09:11)
[2023-12-26] MEDS: predniSONE 20MG TAB 40 MG PO (09:11)
[2023-12-26] MEDS: POLYETHYLENE GLYCOL 3350 17 GM PACKET PO (09:11)
--- NOTE | 2023-12-26 09:27 | EXP.PULM.PN ---
Subjective *Date: 12/26/23 *Time: 09:54 Interval history: No acute respiratory events overnight. Denies any new complaints but continued to cough with productive phlegm improving consistency and color. Pulmonology Exam Inpatient Vital signs and Labs for Last 24 Hours: Temp Pulse Resp BP Pulse Ox O2 Del Method O2 Flow Rate 97.7 F 115 H 16 104/62 L 98 Nasal Cannula 2 12/26/23 07:44 12/26/23 07:44 12/26/23 07:44 12/26/23 07:44 12/26/23 07:44 12/26/23 07:44 12/26/23 06:52 FiO2 28 12/24/23 18:45 Laboratory Results - last 24 hr 12/25/23 17:48: Hgb 11.0 L D, Hct 34.7 L 12/26/23 05:36: WBC 6.0 D, RBC 3.27 L, Hgb 9.7 L D, Hct 32.4 L, MCV 99.2 H, MCH 29.7, MCHC 29.9 L, RDW 15.0, Plt Count 187, MPV 8.7, Neut % (Auto) 75.1, Lymph % (Auto) 18.5, [place] % (Auto) 5.5, Eos % (Auto) 0.8, Baso % (Auto) 0.1, Neut # (Auto) 4.5, Lymph # (Auto) 1.1, [place] # (Auto) 0.3, Eos # (Auto) 0.1, Baso # (Auto) 0.0, Sodium 139, Potassium 4.1, Chloride 98, Carbon Dioxide 43 H*, Anion Gap 2.1 L, BUN 14, Creatinine 0.70, Estimated Creat Clear 143, Estimated GFR 117, Est GFR ( Amer) 141, Glucose 95, Calcium 8.0 L, Magnesium 2.0, Total Bilirubin 0.6, AST 15 L, ALT 7 L, Alkaline Phosphatase 37 L, Total Protein 5.0 L, Albumin 2.6 L, Globulin 2.4, Albumin/Globulin Ratio 1.1 Temp Pulse Resp BP Pulse Ox O2 Del Method O2 Flow Rate 98.1 F 117 H 30 H 98/70 L 94 L Nasal Cannula 2.5 12/24/23 08:27 12/24/23 08:00 12/24/23 08:00 12/24/23 08:00 12/24/23 08:00 12/24/23 08:00 12/24/23 08:00 FiO2 30 12/23/23 06:14 Laboratory Results - last 24 hr 12/23/23 10:44: POC Glucose 102 12/23/23 16:00: VBG pH 7.37, VBG pCO2 62.9 H, VBG pO2 48.1 H, VBG HCO3 35.2 H, VBG Total CO2 37.2 H, VBG O2 Saturation 86.1 H, VBG Base Excess 9.9 H, VBG Lactic Acid 1.1 12/23/23 16:30: Hgb 11.8 L D, Hct 40.6 L 12/23/23 21:18: Hgb 12.1 L, Hct 41.5 L, Blood Type O Negative, Antibody Screen Negative, Crossmatch (AHG) See Detail 12/24/23 03:00: Hgb 10.3 L D, Hct 35.7 L 12/24/23 05:25: WBC 6.8 D, RBC 3.49 L D, Hgb 10.3 L, Hct 34.8 L, MCV 99.8 H, MCH 29.6, MCHC 29.6 L, RDW 14.8, Plt Count 209, MPV 8.1, Neut % (Auto) 70.1, Lymph % (Auto) 21.3, [place] % (Auto) 6.4, Eos % (Auto) 1.8, Baso % (Auto) 0.4, Neut # (Auto) 4.7, Lymph # (Auto) 1.4, [place] # (Auto) 0.4, Eos # (Auto) 0.1, Baso # (Auto) 0.0, Sodium 142, Potassium 4.0, Chloride 103, Carbon Dioxide 43 H*, Anion Gap 0.0 L, BUN 16, Creatinine 0.80, Estimated Creat Clear 124, Estimated GFR 100, Est GFR ( Amer) 121 D, Glucose 84, Calcium 7.9 L, Magnesium 2.1, Total Bilirubin 0.5, AST 16 L D, ALT 11 L D, Alkaline Phosphatase 43, Total Protein 4.8 L, Albumin 2.4 L D, Globulin 2.4, Albumin/Globulin Ratio 1.0 L 12/24/23 08:02: VBG pH 7.40, VBG pCO2 64.4 H, VBG pO2 187.2 H, VBG HCO3 38.5 H, VBG Total CO2 40.5 H, VBG O2 Saturation 99.1 H, VBG Base Excess 13.7 H, VBG Lactic Acid 1.0 I & O for Labs for Last 24 Hours: Intake & Output 12/23/23 12/24/23 12/25/23 12/26/23 23:59 23:59 23:59 23:59 Intake Total 584 / 584 2738 / 2738 770 / 770 Output Total 750 / 750 1150 / 1650 1999 / 1999 0 / 0 Balance -166 / -166 1588 / 1088 -1230 / -1230 0 / 0 Weight 188 lb 3.197 oz 186 lb 8.177 oz 188 lb 7.924 oz 188 lb 7.924 oz Intake & Output 12/21/23 12/22/23 12/23/23 12/24/23 23:59 23:59 23:59 23:59 Intake Total 584 / 584 1150 / 1150 Output Total 750 / 750 300 / 300 Balance -166 / -166 850 / 850 Weight 185 lb 0.014 oz 188 lb 3.197 oz 186 lb 8.177 oz Microbiology Reports for the Last 24 Hours: Microbiology 12/23/23 02:20 Anus CRE Surveillance Culture - Final Negative Microbiology 12/22/23 23:30 Blood Blood Culture - Preliminary NO GROWTH AFTER 24 HOURS 12/22/23 23:20 Blood Blood Culture - Preliminary NO GROWTH AFTER 24 HOURS Constitutional: Present moderate distress Head: Present normocephalic and atraumatic ENT: Present normal exam, normal oropharynx and mucous membranes moist Neck: Present normal inspection and full ROM Respiratory: Present respiratory distress and able to speak in complete sentences; Absent prolonged expiratory phase or wheezes Cardiac: Present S1/S2, Tachycardia and radial pulses present GI: Present soft and distention; Absent tenderness or guarding Skin: Present intact; Absent cyanosis or jaundice Neuro: Present alert, awake and oriented x 3 Extremities: Present normal inspection; Absent clubbing or cyanosis Psychiatric: Present normal affect and cooperative Assessment and Plan *Assessment and plan (1) Acute exacerbation of chronic obstructive pulmonary disease: Status: Acute Category: Medical Code(s): J44.1 - Chronic obstructive pulmonary disease with (acute) exacerbation (2) Pneumonia: Status: Acute Qualifiers: Laterality: left Lung location: lower lobe of lung Category: Medical Code(s): J18.9 - Pneumonia, unspecified organism (3) Acute on chronic respiratory failure with hypoxia and hypercapnia: Status: Acute Category: Medical Code(s): J96.21 - Acute and chronic respiratory failure with hypoxia; J96.22 - Acute and chronic respiratory failure with hypercapnia Plan Mr. Lima is a 58-year-old male greater than [id number] smoking history, COPD, mild worsening respiratory failure presented to the ER with worsening respiratory distress, hypercarbic respiratory failure and also concerns for rectal bleeding. Venous blood gas upon admission concerning for hypercarbic respiratory pH of 7.17 with pCO2 of 91.7. Patient initiate BiPAP therapy with blood gases showing improvement with residual chronic hypercarbic respiratory failure. CTA upon admission no evidence of pulmonary embolism. Small left lower lobe airspace disease noted with no other consolidative changes noted. Retained secretions noted especially in the left lower lobe bronchus concerning for possible aspiration. Mild neutrophilic prominent leukocytosis on admission, improving. COVID-19 and flu PCR panel negative. On initial examination patient appeared to be in mild respiratory distress. No significant wheezing noted on auscultation. Admits worsening cough and productive phlegm prior to hospital admission. VBG from this morning continue to show chronic hypercarbic respiratory failure. Interval update: No acute respiratory vents overnight. 12 tolerating Trelegy inhaler well. Stable oxygen requirements. Sputum cultures pending Plan: Continue oxygen supplementation to maintain O2 saturation of 90 to 95%. Wean as tolerated. Trelegy 100 inhaler Continue levofloxacin for a total of 5 days. Incentive spirometry and flutter valve Activity as tolerated # Thank you for involving pulmonary in this patient care. Will continue to follow. # Appreciate social works support in facilitating patient's compliance with his outpatient appointments.
[2023-12-26] MEDS: LEVOFLOXACIN/D5W 750 MG/150 ML 750 MG/150 ML PIGGYBACK 100 MG IV (10:49)
[2023-12-26 11:47] VITALS: BP 109/68; PULSE 121; RESP 20; TEMP 36.7; O2SAT 100
[2023-12-26] MEDS: OXYCODONE 5MG IMMEDIATE RELEASE TABLET 5 MG PO (12:52)
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
[2023-12-27 18:32] LABS: Opiates Negative (Cutoff=100); Oxycodone (GC/MS) 1230 ng/mL (Cutoff=100); Oxymorphone (GC/MS) 206 ng/mL (Cutoff=100)
== END 2023-12-26 14:14 | disposition home or self-care (01) | DRG 189 ==
LOC: ER 23:29 → 2ND 12-23 01:14
PROVIDERS: Internal Medicine; Internal Medicine Pulmonary Disease; Nurse Practitioner Family; Student in an Organized Health Care Education/Training Program; Surgery; Admitting Provider Internal Medicine Adolescent Medicine; Emergency Provider Emergency Medicine; Visit Provider Internal Medicine Adolescent Medicine
PROC: 0WJ Anatomical Regions, General, Inspection (ICD-10-PCS; principal; 2023-12-24 11:00)
DX: J96.21 Acute and chronic respiratory failure with hypoxia (principal); J18.9 Pneumonia, unspecified organism; J44.1 Chronic obstructive pulmonary disease with (acute) exacerbation; J96.02 Acute respiratory failure with hypercapnia; F17.200 Nicotine dependence, unspecified, uncomplicated; I10 Essential (primary) hypertension; E78.5 Hyperlipidemia, unspecified; I25.10 Atherosclerotic heart disease of native coronary artery without angina pectoris; I65.22 Occlusion and stenosis of left carotid artery; J43.9 Emphysema, unspecified; F17.210 Nicotine dependence, cigarettes, uncomplicated; F10.90 Alcohol use, unspecified, uncomplicated; Z99.81 Dependence on supplemental oxygen; F41.9 Anxiety disorder, unspecified; G89.29 Other chronic pain; M54.9 Dorsalgia, unspecified; M25.552 Pain in left hip; M25.551 Pain in right hip; K64.9 Unspecified hemorrhoids; Z71.6 Tobacco abuse counseling
CPT/HCPCS: 45990; 36415; 70450; 70496; 70498; 71045; 71275; 74174; 80050; 80053; 80307; 80320; 80329; 80361; 80365; 81001; 82140; 82803; 82962; 83605; 83735; 84443; 84484; 85007; 85014; 85018; 85025; 85027; 85610; 85730; 86850; 87040; 87081; 87636; 93005; 94640; 94660; 94761; 96374; 97162; 97166; 97530; 99285; 99291; G0480; J0690; J0696; J1956; J2919; J3475; J7030; J7120; J7613; J7620; Q9967

== ENCOUNTER 2024-01-05 16:19 | Emergency (ER) | payer MEDICAID, SELFPAY ==
--- NOTE | 2024-01-05 16:17 | ECG_ITS ---
APPROVED REPORT Exam: Resting ECG HR:102 bpm ECG Measurements Heart Rate 102 AXES NV 148 P 97 QRSd 93 QRS 114 QT 311 T 73 QTc 370 Conclusion SINUS TACHYCARDIA INCOMPLETE RIGHT BUNDLE BRANCH BLOCK [90+ ms QRS DURATION, TERMINAL R IN V1/V2, 40+ ms S IN I/aVL/V4/V5/V6] RIGHT VENTRICULAR HYPERTROPHY [SOME/ALL OF: PROMINENT R IN V1, LATE TRANSITION, RAD, SUNNY, SSS] ABNORMAL ECG UNCONFIRMED REPORT Electronically signed by : BETSY FINK, 01/06/2024 03:48:18
[2024-01-05 16:19] VITALS: BP 139/81; PULSE 101; RESP 22; TEMP 36.6; O2SAT 96; BMI 28.7
--- NOTE | 2024-01-05 16:20 | PC.NURSE ---
pt brought back to ED in his personal wheelchair. pt did not bring any pill bottles into ED. when asked about his home medication pt states, I have been out of my medications since I was discharged from this hospital. I am handicap, and you know how people take advantage. I have not had any pain medications in two weeks. Antony Medina at bedside with FILIBERTO.
[2024-01-05 17:00] VITALS: BP 122/79; PULSE 95; O2SAT 97
[2024-01-05 17:15] VITALS: BP 126/88; PULSE 94; O2SAT 99
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
[2024-01-05] MEDS: OXYCODONE 5MG IMMEDIATE RELEASE TABLET 10 MG PO (17:55)
[2024-01-05 18:20] VITALS: BP 121/79; PULSE 78; RESP 20; TEMP 36.9; O2SAT 95
== END 2024-01-05 18:22 | disposition home or self-care (01) ==
PROVIDERS: Emergency Provider Emergency Medicine
DX: R07.9 Chest pain, unspecified (principal); G89.29 Other chronic pain
CPT/HCPCS: 93005; 99283

== ENCOUNTER 2024-01-10 18:17 | Emergency (ER) | payer MEDICAID, SELFPAY ==
[2024-01-10 18:17] VITALS: BP 152/99; PULSE 105; RESP 26; TEMP 36.7; O2SAT 98; BMI 27.0
[2024-01-10 18:19] VITALS: BP 152/99; PULSE 108; O2SAT 96
--- NOTE | 2024-01-10 18:20 | PC.NURSE ---
NARGIS AVILEZ AT BEDSIDE
--- NOTE | 2024-01-10 18:22 | XR_ITS ---
PROCEDURE INFORMATION: Exam: XR Chest Exam date and time: 01/10/2024 6:28 PM Age: 58 years old Clinical indication: Shortness of breath; Additional info: Short of breath TECHNIQUE: Imaging protocol: Radiologic exam of the chest. Views: 1 view. COMPARISON: CT ANGIO CHEST PE PROTOCOL 12/23/2023 12:01 AM FINDINGS: Lungs: Emphysematous changes, greatest at the right lung apex. Faint airspace disease noted at the right lung base. Pleural spaces: Unremarkable. No pleural effusion. No pneumothorax. Heart/Mediastinum: Unremarkable. No cardiomegaly. Bones/joints: Unremarkable. IMPRESSION: 1. Emphysematous changes. 2. Faint right basilar airspace disease may represent pneumonia.
[2024-01-10 18:30] VITALS: BP 151/96; PULSE 104; O2SAT 96
--- NOTE | 2024-01-10 18:30 | ED_ITS ---
Discharge Plan Disposition Patient Disposition: Home, Self-Care Condition: Good Prescriptions Prescriptions: New doxycycline hyclate 100 mg capsule 100 mg PO BID 10 Days Qty: 20 0RF prednisone 20 mg tablet 20 mg PO BID PRN (Reason: Breathing) 5 Days Qty: 10 0RF No Action ergocalciferol (vitamin D2) 1,250 mcg (50,000 unit) capsule 50,000 unit PO WEEKLY Qty: 10 10RF aspirin [Adult Aspirin Regimen] 81 mg tablet,delayed release (DR/EC) 81 mg PO DAILY Qty: 30 2RF (DME) oxygen-air delivery systems Device See Rx Instructions .Route Rx Instructions: As directed Trelegy Ellipta 100-62.5-25 mcg blister with device 1 inh inhalation DAILY 90 Days Qty: 90 2RF metoprolol succinate [Toprol XL] 25 mg tablet extended release 24 hr 12.5 mg PO DAILY Qty: 30 5RF Rx Instructions: take 0.5 tablet daily atorvastatin 40 mg tablet 40 mg PO HS Qty: 90 0RF Rx Instructions: TAKE ONE TABLET BY MOUTH AT BEDTIME buspirone 5 mg tablet 5 mg PO BID 90 Days Qty: 180 0RF Rx Instructions: TAKE ONE TABLET BY MOUTH 2 TIMES A DAY albuterol sulfate [Ventolin HFA] 90 mcg/actuation HFA aerosol inhaler 2 puff inhalation Q4HP PRN (Reason: Shortness Of Breath) Qty: 8.5 3RF Rx Instructions: INHALE 2 PUFFS BY MOUTH EVERY 4 TO 6 HOURS NEEDED FOR SHORTNESS OF BREATH SHAKE WELL ipratropium-albuterol 0.5 mg-3 mg(2.5 mg base)/3 mL solution for nebulization 3 ml inhalation Q4H PRN (Reason: wheezing) Qty: 180 0RF [place] Saline 0.65 % aerosol,spray 1 spray intranasal BIDP PRN (Reason: Dry Nasal Passages) Rx Instructions: USE 1 SPRAY IN EACH NOSTRIL 2 TIMES A DAY NEEDED FOR DRY NASAL PASSAGES bupropion HCl 150 mg tablet extended release 24 hr 150 mg PO DAILY Rx Instructions: TAKE ONE TABLET BY MOUTH ONCE A DAY nicotine 21 mg/24 hr patch 24 hour 1 patch transdermal DAILY PRN (Reason: nicotine cravings) Qty: 14 2RF Referrals Follow up/Referrals: Provider,Referral, MD [Primary Care Provider] - See instructions Activity Restrictions/Add. Instructions Additional Instructions/Restrictions: Take meds as directed. Increase fluids and rest. DuoNebs at home as needed for wheezing. If any more problems or concerns please return to the ER for further care. Clinical Impressions Clinical Impression: COPD (chronic obstructive pulmonary disease) with emphysema, Panic attack Instructions Patient Instructions: DI for Chronic Obstructive Pulmonary Disease Print Language Print Language: Danish Discharge ED Provider: Violet Bermudez General Adult HPI General Chief complaint: Shortness of Breath/Dyspnea Stated complaint: anxiety Time Seen by Provider: 01/10/24 18:19 Mode of Arrival: EMS History of Present Illness HPI narrative: This is a 58-year-old male who presents to the ED today via EMS for an anxiety attack. He arrives to the room complaining of recurrent panic attacks. He tells me that he is unable to get his narcotics refilled. He was seeing Dr. Norris and has been unable to see him anymore due to an unknown reason. Patient tried to see me as a provider in my office telling me that he needed his controlled substances refilled this week. His Kwabena was not compliant. EMS run sheet shows sinus on the monitor. He told EMS that his panic attacks began today over his controlled substances. Patient is wheezing upon arrival and said that he does have COPD and had a breathing treatment not too long before arrival to the ED. Related Data Home Medications ?Medication ?Instructions ?Recorded ?Confirmed oxygen-air delivery systems 07/25/22 12/02/23 bupropion HCl 150 mg 24 hr tablet, 150 mg PO DAILY 12/23/23 01/07/24 extended release sodium chloride 0.65 % nasal spray 1 spray intranasal BIDP PRN Dry 12/23/23 01/07/24 aerosol ([place] Saline) Nasal Passages Previous Rx's ?Medication ?Instructions ?Recorded aspirin 81 mg tablet,delayed 81 mg PO DAILY #30 tabs 12/28/22 release (Adult Aspirin Regimen) ergocalciferol (vitamin D2) 1,250 50,000 unit PO WEEKLY Supplement 01/01/23 mcg (50,000 unit) capsule #10 caps fluticasone fur. 100 mcg-umeclid 1 inh inhalation DAILY 90 days #90 09/23/23 62.5 mcg-vilant 25 mcg ea inhalat.powder (Trelegy Ellipta) ipratropium 0.5 mg-albuterol 3 mg 3 ml inhalation Q4H PRN wheezing 12/06/23 (2.5 mg base)/3 mL nebulization #180 mL soln nicotine 21 mg/24 hr daily 1 patch transdermal DAILY PRN 12/26/23 transdermal patch nicotine cravings #14 ea albuterol sulfate 90 mcg/actuation 2 puff inhalation Q4HP PRN 12/30/23 aerosol inhaler (Ventolin HFA) Shortness Of Breath #8.5 grams atorvastatin 40 mg tablet 40 mg PO HS #90 tabs 12/30/23 buspirone 5 mg tablet 5 mg PO BID 90 days #180 tabs 12/30/23 metoprolol succinate 25 mg 12.5 mg (1/2 x 25 mg) PO DAILY #30 12/30/23 tablet,extended release 24 hr tabs (Toprol XL) doxycycline hyclate 100 mg capsule 100 mg PO BID 10 days #20 caps 01/10/24 prednisone 20 mg tablet 20 mg PO BID PRN Breathing 5 days 01/10/24 #10 tabs Allergies Allergy/AdvReac Type Severity Reaction Status Date / Time aspirin [ASPIRIN] Allergy Mild Rash Verified 01/07/24 11:37 codeine [CODEINE] Allergy Mild Swelling Verified 01/07/24 11:37 of Lip/Tongue/Throat ibuprofen [IBUPROFEN] Allergy Unknown Rash Verified 01/07/24 11:37 acetaminophen [From Tylenol] Allergy Rash Verified 01/07/24 11:37 tramadol Allergy Rash Verified 01/07/24 11:37 [facility] Disclaimer: The information contained in this section may have been updated after the patient was seen, as this information can be updated by other users. Medical History Acute on chronic respiratory failure with hypoxia and hypercapnia Acute and chronic respiratory failure with hypoxia Abnormal PET scan of colon CAD in [place] artery Pneumonia Abnormal electrocardiogram [ECG] [EKG] Dyspnea Pseudomonal pneumonia Hyperlipemia HTN (hypertension) Overweight (BMI 25.0-29.9) Pulmonary emphysema Chronic hypoxemic respiratory failure Tobacco abuse disorder Tobacco abuse counseling Screening for lung cancer Smoking greater than 30 pack years Dyspnea on exertion Tobacco use COPD (chronic obstructive pulmonary disease) Patient is following with pulmonary. He does have multiple nodules in the lung. He also has severe COPD. Initially in October this patient had no pulmonary nodules however in June 2021 and then 2023 there were new nodules noted. This along with the abnormalities found on the PET scan is obviously very concerning see below. Surgical History History of repair of ACL History of colonoscopy Family History Other Alcohol abuse Cancer Coronary artery disease Diabetes Emphysema lung Social History Smoking Status: Current some day smoker tobacco type: cigarettes packs per day: 2 second hand exposure: Yes alcohol intake: former substance use type: denies use current occupational status: disabled Travel in the last 8 weeks: None household members: friend(s) housing: house ROS Obtained: Yes Systems reviewed as appropriate & no additional complaints except as documented Constitutional Constitutional: Reports as per HPI Physical Exam General General appearance: alert and anxious Head Head exam: atraumatic and normocephalic Eye Eye exam: Present PERRL, EOMI and conjunctival redness ENT ENT exam: Present normal oropharynx and mucous membranes moist Neck Neck exam: Present full ROM and trachea midline Chest Chest inspection: Present normal inspection Respiratory Respiratory exam: Present wheezes Expanded Respiratory Exam Location: Left: wheezes and rhonchi, Right: wheezes and rhonchi, Upper: wheezes and rhonchi and Lower: wheezes and rhonchi Cardiovascular Cardiovascular exam: Present regular rate, normal rhythm, normal heart sounds, +S1 and +S2 Abdominal Exam Abdominal exam: Present soft and normal bowel sounds Extremities Exam Extremities exam: Present full ROM and normal capillary refill Neurological Exam Neurological exam: Present alert and oriented X3 Psychiatric Psychiatric exam: Present agitated and anxious Skin Skin exam: Present warm, dry and intact Medical Decision Making Medical Records Screening: Per USPSTF and CDC recommendations, given the prevalence of disease in our region, it is our hospital?s policy to screen for HIV and viral Hepatitis for all patients aged 18 and over and those with ongoing risk factors. Kwabena Inquiry Pt receiving controlled substance: Yes Kwabena was queried for this patient: Yes Risks and benefits of using a controlled substance: were discussed with pt by me Comment: I previously Kwabenaek this patient already discussed kwabena Vital Signs: 01/10/24 18:17 01/10/24 18:19 01/10/24 18:30 Temperature 98.0 F Temperature Source Axillary Pulse Rate 108 H 104 H Pulse Rate [Right] 105 H Respiratory Rate 26 H Blood Pressure 152/99 H 151/96 H Blood Pressure [Right Arm] 152/99 H Blood Pressure Mean Blood Pressure Mean [Right Arm] 116 Blood Pressure Source [Right Arm] Automatic Cuff 02 Sat by Pulse Oximetry 98 96 96 Oxygen Delivery Method Nasal Cannula Room Air Room Air Oxygen Flow Rate (LPM) 3 01/10/24 19:00 01/10/24 19:30 Temperature Temperature Source Pulse Rate 99 H 95 H Pulse Rate [Right] Respiratory Rate 16 Blood Pressure 127/98 H 141/78 H Blood Pressure [Right Arm] Blood Pressure Mean 113 Blood Pressure Mean [Right Arm] Blood Pressure Source [Right Arm] 02 Sat by Pulse Oximetry 95 95 Oxygen Delivery Method Oxygen Flow Rate (LPM) Orders (Tests/Meds): ED MEDICATIONS Discontinued Medications Generic Name Dose Route Start Last Admin Trade Name Freq PRN Reason Stop Dose Admin Albuterol/Ipratropium 3 ml 01/10/24 18:28 01/10/24 18:39 Ipratropium/Albuterol 3 Ml Neb IH 01/10/24 18:29 3 ml ONCE ONE Administration Diazepam 5 mg 01/10/24 18:28 01/10/24 18:38 Diazepam 5mg Tablet PO 01/10/24 18:29 5 mg ONCE ONE Administration Methylprednisolone Sodium Succinate 125 mg 01/10/24 18:52 01/10/24 19:10 Methylprednisolone Sod Succ 125mg Vial IM 01/10/24 18:53 125 mg ONCE ONE Administration ORDERS Category Date Time Status Chest XR -- portable [XR chest portable] Stat Exams 01/10/24 18:22 Completed Medical Decision Narrative: Insert review patient is a [58-year-old male presenting to the emergency department for evaluation of anxiety attack and according to EMS run sheet upset over not being able to refill controlled substances. Panic attacks started this morning. Patient is hemodynamically stable and nontoxic-appearing upon arrival, afebrile. Differential diagnosis includes panic, anxiety, COPD exacerbation, pneumonia among others. Workup will be conducted with chest x- ray. Initial inventions include nebulizer treatment, 1 Valium for anxiety and chest x-ray. Initial workup reviewed by me [hematologic labs are remarkable for COPD. Imaging informally interpreted by me and remarkable for COPD exacerbation. [Formal imaging read remarkable for COPD with emphysema and lower lobe pneumonia. Upon repeat evaluation patient's pain is improved, appears better perfused. Critical Care Critical Care Time Critical Care Time: No
[2024-01-10] MEDS: diazePAM 5MG TABLET 5 MG PO (18:38)
[2024-01-10] MEDS: IPRATROPIUM/ALBUTEROL 3 ML NEB IH (18:39)
[2024-01-10 19:00] VITALS: BP 127/98; PULSE 99; RESP 16; O2SAT 95
[2024-01-10] MEDS: METHYLPREDNISOLONE SOD SUCC 125MG VIAL 125 MG IM (19:10)
[2024-01-10 19:30] VITALS: BP 141/78; PULSE 95; O2SAT 95
[2024-01-10 19:41] VITALS: BP 141/78; PULSE 106; RESP 16; TEMP 36.6; O2SAT 2
--- NOTE | 2024-01-13 10:00 | PC.NURSE ---
Pt's friend called and requested d/c prescriptions from 01/09 be sent to [facility], he did not pick them up at Clinic
== END 2024-01-10 19:50 | disposition home or self-care (01) ==
PROVIDERS: Emergency Provider Student in an Organized Health Care Education/Training Program
DX: J44.1 Chronic obstructive pulmonary disease with (acute) exacerbation (principal); F41.0 Panic disorder [episodic paroxysmal anxiety]; J96.21 Acute and chronic respiratory failure with hypoxia; J96.22 Acute and chronic respiratory failure with hypercapnia; I25.10 Atherosclerotic heart disease of native coronary artery without angina pectoris; E78.5 Hyperlipidemia, unspecified; I10 Essential (primary) hypertension; F17.210 Nicotine dependence, cigarettes, uncomplicated
CPT/HCPCS: 71045; 96372; 99283; J2919; J7620

== ENCOUNTER 2024-10-13 21:30 | Inpatient (IN) | payer MEDICAID, SELFPAY ==
[2024-10-13] VITALS (8 sets, daily range): BP systolic 109–133; BP diastolic 80–92; PULSE 103–117; RESP 22–39; TEMP 37.1; O2SAT 92–97; BMI 25.1
--- NOTE | 2024-10-13 21:28 | ECG_ITS ---
APPROVED REPORT Exam: Resting ECG HR:117 bpm ECG Measurements Heart Rate 117 AXES CO 135 P 88 QRSd 92 QRS 110 QT 328 T 77 QTc 398 Conclusion SINUS TACHYCARDIA WITH FREQUENT SUPRAVENTRICULAR PREMATURE COMPLEXES POSSIBLE RIGHT VENTRICULAR HYPERTROPHY [SOME/ALL OF: PROMINENT R IN V1, LATE TRANSITION, RAD, SUNNY, SSS] ABNORMAL ECG UNCONFIRMED REPORT Electronically signed by : BETSY FINK, 10/14/2024 06:30:44
--- NOTE | 2024-10-13 21:34 | XR_ITS ---
PROCEDURE INFORMATION: Exam: XR Chest Exam date and time: 10/13/2024 10:06 PM Age: 59 years old Clinical indication: Shortness of breath; Additional info: SOB cough copd TECHNIQUE: Imaging protocol: Radiologic exam of the chest. Views: 1 view. COMPARISON: CR XR CHEST PORTABLE 01/10/2024 6:28 PM FINDINGS: Lungs: The lungs are hyperinflated. No focal consolidation. Pleural spaces: No pneumothorax or pleural effusion. Heart/Mediastinum: The cardiomediastinal silhouette has normal size and contour. Bones/joints: No displaced fracture. Intraperitoneal space: The visualized abdomen is unremarkable. IMPRESSION: 1. No acute cardiopulmonary disease. 2. The lungs are hyperinflated, suggestive of chronic obstructive pulmonary disease.
[2024-10-13] MEDS: MAGNESIUM SULFATE IN WATER 2 GM/50 ML PIGGYBACK IV (21:36)
--- OUTSIDE RECORDS SUMMARY | 2024-10-13 21:36 | XMS_ITS | Encounter Summary ---
Author Organization [facility] Address [address] [place] [address] Care Team Providers Care Pneumatic Systems Operator Name Role Phone Kaushal Carr MD Primary Care Provider [phone] Encounter Details Date Type Department Care Team (Late st Contact Info) Description 12/22/2023 Orders Only External Location [address] [place] [phone] Kendall Sylvester MD [address] [place] [phone] Social History Tobacco Use Types Packs/Day Years Used Date Smoking Tobacco: Never Assessed Sex and Gender Information Value Date Recorded Sex Assigned at Not on file Legal Sex Male 7:30 PM EDT Gender Identity Not on file Sexual Orientation Not on file documented as of this encounter Plan of Treatment Not on file documented as of this encounter Procedures Procedure Name Priority Date/Time Associated Diagnosis Comments CT OUTSIDE IMAGES 12/22/2023 11:56 PM EDT documented in this encounter Results * CT OUTSIDE IMAGES (12/22/2023 11:56 PM EDT) Anatomical Region Laterality Modality Computed Tomogra phy 12/22/2023 11:5 6 PM EDT us Kendall Sylvester MD IMG CT PROCEDURES Final Result documented in this encounter Visit Diagnoses Not on filedocumented in this encounter Care Teams Pneumatic Systems Operator Relationship Specialty Start Date End Date Kaushal Carr MD [address] [place] [address] PCP - General 10/31/22 documented as of this encounter
--- OUTSIDE RECORDS SUMMARY | 2024-10-13 21:36 | XMS_ITS | Encounter Summary ---
Author Organization [facility] Address [address] [place] [address] Care Team Providers Care Hoop Rolls Operator Name Role Phone Kaushal Carr MD Primary Care Provider [phone] Encounter Details Date Type Department Care Team (Late st Contact Info) Description 12/22/2023 Orders Only External Location [address] [place] [phone] Kendall Sylvester MD [address] [place] [phone] Social History Tobacco Use Types Packs/Day [...] on filedocumented in this encounter Care Teams Hoop Rolls Operator Relationship Specialty Start Date End Date Kaushal Carr MD [address] [place] [address] PCP - General 10/31/22 documented as of this encounter
--- OUTSIDE RECORDS SUMMARY | 2024-10-13 21:36 | XMS_ITS | Encounter Summary ---
Author Organization [facility] Address [address] [place] [address] Care Team Providers Care Communication Engineer Name Role Phone Kaushal Carr MD Primary Care Provider [phone] Encounter Details Date Type Department Care Team (Late st Contact Info) Description 12/22/2023 Orders Only External Location [address] [place] [phone] Kendall Sylvester MD [address] [place] [phone] Social History Tobacco Use Types Packs/Day [...] on filedocumented in this encounter Care Teams Communication Engineer Relationship Specialty Start Date End Date Kaushal Carr MD [address] [place] [address] PCP - General 10/31/22 documented as of this encounter
--- OUTSIDE RECORDS SUMMARY | 2024-10-13 21:36 | XMS_ITS | Encounter Summary ---
Author Organization [facility] Address [address] [place] [address] Care Team Providers Care Forming Tube Selector Name Role Phone Kaushal Carr MD Primary Care Provider [phone] Encounter Details Date Type Department Care Team (Late st Contact Info) Description 12/06/2023 Orders Only External Location [address] [place] [address] Juan Luis Chong MD [address] [place] [address] Social History Tobacco Use Types Packs/Day Years [...] Procedure Name Priority Date/Time Associated Diagnosis Comments XR OUTSIDE IMAGES 12/06/2023 5:53 AM EDT documented in this encounter Results * XR OUTSIDE IMAGES (12/06/2023 5:53 AM EDT) Anatomical Region Laterality Modality Radiographic Alyx ging 12/06/2023 5:53 AM EDT us Juan Luis Chong MD IMG XR PROCEDURES Final Result documented in this encounter Visit Diagnoses Not on filedocumented in this encounter Care Teams Forming Tube Selector Relationship Specialty Start Date End Date Kaushal Carr MD [address] [place] [address] PCP - General 10/31/22 documented as of this encounter
--- OUTSIDE RECORDS SUMMARY | 2024-10-13 21:36 | XMS_ITS | Encounter Summary ---
Author Organization [facility] Address [address] [place] [address] Care Team Providers Care Cloth Wire Weaver Name Role Phone Kaushal Carr MD Primary Care Provider [phone] Encounter Details Date Type Department Care Team (Late st Contact Info) Description 12/22/2023 Orders Only External Location [address] [place] [phone] Provider, External Social History Tobacco Use Types Packs/Day Years [...] Associated Diagnosis Comments CT OUTSIDE IMAGES 12/22/2023 6:38 PM EDT documented in this encounter Results * CT OUTSIDE IMAGES (12/22/2023 6:38 PM EDT) Anatomical Region Laterality Modality Computed Tomogra phy 12/22/2023 6:38 PM EDT us External Provider IMG CT PROCEDURES Final Result documented in this encounter Visit Diagnoses Not on filedocumented in this encounter Care Teams Cloth Wire Weaver Relationship Specialty Start Date End Date Kaushal Carr MD [address] [place] [address] PCP - General 10/31/22 documented as of this encounter
[2024-10-13] MEDS: METHYLPREDNISOLONE SOD SUCC 125MG VIAL 125 MG IV (21:37)
--- NOTE | 2024-10-13 21:37 | ED_ITS ---
Discharge Plan Disposition Patient Disposition: Admitted Clinical Impressions Clinical Impression: Acute exacerbation of chronic obstructive pulmonary disease, Respiratory failure Discharge ED Provider: Cordell Rebollar HPI General Chief Complaint: Shortness of Breath/Dyspnea Stated Complaint: SOA Time Seen by Provider: 10/13/24 21:33 History of Present Illness HPI narrative: Patient is a 59-year-old male past medical history of COPD on 2 L nasal cannula at home who presents to the emergency department for evaluation of shortness of breath. History is obtained by patient and EMS report. He has a longstanding history of COPD continues to smoke, states he is compliant with his medications. Initially contacted EMS for help with his oxygen tubing and was saturating in the 70s on his baseline oxygen requirement. He was given a DuoNeb en route and was saturating in the high 80s on 5 L nasal cannula. He does not have any chest pain rather just have shortness of breath which is been going on for months but is particularly worse over the last few days. No chest pain. He has had multiple breathing treatments at home. No other acute complaints at this time. Please note that above description of symptoms, in this electronic medical record under categorization of recalled from ER triage doctor by RN are reflective of an initial nursing assessment, however, is not reflective of my full history and physical exam that was personally taken and clarified. Consequentially, this preceding description of symptoms, which may include the patient's categorized chief complaint in the EMR, do not reflect my personal clinical impression, and the ultimate description of history of present illness and patient stated complaints should be deferred to this section of the note. Unless stated otherwise or congruent with this section of the note, additional signs, symptoms, or incongruence should be interpreted as inaccurate with my clinical impression. Related Data Home Medications ?Medication ?Instructions ?Recorded ?Confirmed oxygen-air delivery systems 07/25/22 10/13/24 bupropion HCl 150 mg 24 hr tablet, 150 mg PO DAILY 06/1501/22/24 extended release sodium chloride 0.65 % nasal spray 1 spray intranasal BIDP PRN Dry 12/23/23 10/13/24 aerosol ([place] Saline) Nasal Passages Previous Rx's ?Medication ?Instructions ?Recorded aspirin 81 mg tablet,delayed 81 mg PO DAILY #30 tabs 0 12/28/22 release (Adult Aspirin Regimen) Held on 12/23/23. Instructions: due to hemorrhoidal bleeding ergocalciferol (vitamin D2) 1,250 50,000 unit PO WEEKL Y Supplement 01/01/23 mcg (50,000 unit) capsule #10 caps nicotine 21 mg/24 hr daily 1 patch transdermal DAILY P RN 12/26/23 transdermal patch nicotine cravings #14 ea atorvastatin 40 mg tablet 40 mg PO HS #90 tabs 4 buspirone 5 mg tablet 5 mg PO BID 90 days #180 tab s 12/30/23 metoprolol succinate 25 mg 12.5 mg (1/2 x 25 mg) PO DA WEN #30 12/30/23 tablet,extended release 24 hr tabs (Toprol XL) nicotine (polacrilex) 2 mg buccal 2 mg buccal Q4H PRN nicotine 01/22/24 mini lozenge cravings #81 ea albuterol sulfate 90 mcg/actuation See Rx Instructions .Route 04/01/24 aerosol inhaler (Ventolin HFA) .COMPLEX #18 grams fluticasone fur. 100 mcg-umeclid 1 inh inhalation SERAFIN Y 90 days #90 07/22/24 62.5 mcg-vilant 25 mcg ea inhalat.powder (Trelegy Ellipta) ipratropium 0.5 mg-albuterol 3 mg See Rx Instructions .Route 09/17/24 (2.5 mg base)/3 mL nebulization .COMPLEX #180 mL soln Allergies Allergy/AdvReac Type Severity Reaction Status Date / Time aspirin (ASPIRIN) Allergy Mild Rash Verified 01/22/24 13:47 codeine (CODEINE) Allergy Mild Swelling Verified 01/22/24 13:47 of Lip/Tongue/Throat ibuprofen (IBUPROFEN) Allergy Unknown Rash Verified 01/22/24 13:47 acetaminophen (From Tylenol) Allergy Rash Verified 01/22/24 13:47 tramadol Allergy Rash Verified 01/22/24 13:47 [facility] Disclaimer: The information contained in this section may have been updated after the patient was seen, as this information can be updated by other users. Medical History Acute on chronic respiratory failure with hypoxia and hypercapnia Acute and chronic respiratory failure with hypoxia Abnormal PET scan of colon CAD in [place] artery Pneumonia Abnormal electrocardiogram [ECG] [EKG] Dyspnea Pseudomonal pneumonia Hyperlipemia HTN (hypertension) Overweight (BMI 25.0-29.9) Pulmonary emphysema Chronic hypoxemic respiratory failure Tobacco abuse disorder Tobacco abuse counseling Screening for lung cancer Smoking greater than 30 pack years Dyspnea on exertion Tobacco use COPD (chronic obstructive pulmonary disease) Patient is following with pulmonary. He does have multiple nodules in the lung. He also has severe COPD. Initially in October this patient had no pulmonary nodules however in June 2021 and then 2023 there were new nodules noted. This along with the abnormalities found on the PET scan is obviously very concerning see below. Surgical History History of repair of ACL History of colonoscopy Family History Other Alcohol abuse Cancer Coronary artery disease Diabetes Emphysema lung Social History Smoking Status: Current every day smoker tobacco type: cigarettes packs per day: 2 second hand exposure: Yes alcohol intake: former substance use type: denies use current occupational status: disabled Travel in the last 8 weeks?: None household members: friend(s) housing: house Have you lived/traveled outside [place] in past 30 days?: No Contact w/someone who lives/traveled outside [place] past 30 days?: No Exposure to someone with infectious disease in past 14 days?: No Do you have a fever (greater than 100.4 F or 38 C)?: No Have you tested positive for COVID-19?: No Exposed to someone with COVID-19 in past 14 days?: No Do you have a sore throat?: No Do you have a cough?: No Do you have any weakness?: No Do you have any diarrhea?: No Are you experiencing any unusual bleeding?: No Do you have any muscle aches/pain?: No Do you have any abdominal pain?: No Are you experiencing loss of taste or smell?: No Other Medical History Have you received the Flu Vaccine for this season: No Have you received the Pneumonia Vaccine: No ROS Obtained: Yes Systems reviewed as appropriate & no additional complaints except as documented Physical Exam General General appearance: alert Comment: Appearing in respiratory distress in bed Head Head exam: atraumatic and normocephalic Eye Eye exam: Present PERRL and EOMI ENT ENT exam: Present mucous membranes moist Neck Neck exam: Present normal inspection Chest Chest inspection: Present normal inspection and symmetric chest wall rise Respiratory Respiratory exam: Present respiratory distress and wheezes (Coarse rhonchi and wheezing biphasic with accessory muscle use and tachypnea); Absent normal lung sounds bilaterally Cardiovascular Cardiovascular exam: Present normal rhythm and tachycardia Abdominal Exam Abdominal exam: Present soft; Absent tenderness Extremities Exam Extremities exam: Present normal inspection Neurological Exam Neurological exam: Present alert Psychiatric Psychiatric exam: Present normal affect Skin Skin exam: Present warm and dry HEART Score HEART Score HEART Score assessment performed?: Yes History (anamnesis): Slightly suspicious ECG: Non-specific disturbance Age: <45 years Risk factors: 3 or more risk factors Troponin: </= normal limit HEART Score: 3 Critical Care Critical Care Time Critical Care Time: Yes Attestation: On 10/13/24, the high probability of a clinically significant, sudden or life threatening deterioration of the following system(s) required my full and direct attention, intervention and personal management. The time I documented below is in addition to time spent performing reported procedures but includes the following listed in this critical care notation. Total Time Total Critical Care Time: 40 Medical Decision Making [place] Inquiry Pt receiving controlled substance: No Vital Signs Vital Signs: 10/13/24 21:34 10/13/24 21:34 10/13/24 21:45 Temperature 98.7 F Temperature Source Oral Pulse Rate 113 H 110 H Pulse Rate [Apical] 117 H Respiratory Rate 39 H 29 H 22 Blood Pressure Blood Pressure [Right Arm] 109/80 L Blood Pressure Mean [Right Arm] 89 Blood Pressure Source [Right Arm] Automatic Cuff Blood Pressure Position [Right Arm] Sitting 02 Sat by Pulse Oximetry 93 L 96 96 Oxygen Delivery Method Nasal Cannula Oxygen Flow Rate (LPM) 6 Fraction of Inspired Oxygen 10/13/24 22:00 10/13/24 22:08 10/13/24 22:08 Temperature Temperature Source Pulse Rate 105 H 105 H Pulse Rate [Apical] Respiratory Rate 22 Blood Pressure Blood Pressure [Right Arm] Blood Pressure Mean [Right Arm] Blood Pressure Source [Right Arm] Blood Pressure Position [Right Arm] 02 Sat by Pulse Oximetry 95 Oxygen Delivery Method Oxygen Flow Rate (LPM) Fraction of Inspired Oxygen 40 10/13/24 22:08 10/13/24 22:15 10/13/24 22:18 Temperature Temperature Source Pulse Rate 105 H 103 H 104 H Pulse Rate [Apical] Respiratory Rate 27 H 31 H Blood Pressure 133/90 Blood Pressure [Right Arm] Blood Pressure Mean [Right Arm] Blood Pressure Source [Right Arm] Blood Pressure Position [Right Arm] 02 Sat by Pulse Oximetry 97 97 Oxygen Delivery Method BiPAP Oxygen Flow Rate (LPM) Fraction of Inspired Oxygen 10/13/24 22:32 Temperature Temperature Source Pulse Rate Pulse Rate [Apical] Respiratory Rate 25 H Blood Pressure 126/92 H Blood Pressure [Right Arm] Blood Pressure Mean [Right Arm] Blood Pressure Source [Right Arm] Blood Pressure Position [Right Arm] 02 Sat by Pulse Oximetry 92 L Oxygen Delivery Method BiPAP Oxygen Flow Rate (LPM) Fraction of Inspired Oxygen Lab Data Labs: Lab Results 10/13/24 21:25: WBC 9.8, RBC 4.91, Hgb 14.6, Hct 49.8, MCV 101.4 H, MCH 29.7, M CHC 29.3 L, RDW 12.4, Plt Count 197, MPV 10.6 H, Neut % (Auto) 77.9, Lymph % (Auto) 11.2, [place] % (Auto) 8.2, Eos % (Auto) 1.1, Baso % (Auto) 0.4, Neut # (Auto) 7.6, Lymph # (Auto) 1.1, [place] # (Auto) 0.8, Eos # (Auto) 0.1, Baso # (Auto) 0.0, PT 11.4, INR 1.03, APTT 26.3, Sodium 145, Potassium 4.6, Chloride 85 L, Carbon Dioxide 53 H*, Anion Gap 11.6, BUN 22 H, Creatinine 0.80, Estimated Creat Clear 118, Estimated GFR 100, Est GFR ( Amer) 121, Glucose 114 H, Calcium 9.7, Total Bilirubin 1.1, AST 23, ALT 15, Alkaline Phosphatase 85, Troponin I < 0.01, NT-Pro-B Natriuret Pep 240 H, Total Protein 7.9 D, Albumin 4.2, Globulin 3.7 H, Albumin/Globulin Ratio 1.1, HIV Ag/Ab Combo Qual Negative 10/13/24 21:34: VBG pH 7.26 L, VBG pCO2 129.3 H, VBG pO2 41.3 H, VBG HCO3 56.1 H , VBG Total CO2 60.0 H, VBG O2 Saturation 77.9 H, VBG Base Excess 28.9 H, VBG Lactic Acid 2.5 H 10/13/24 21:40: Chlamy pneumoniae PCR Not detected, Adenovirus (PCR) Not detected, B. pertussis DNA (PCR) Not detected, Coronavirus OC43 (PCR) Not detected, Coronavirus HKU1 (PCR) Not detected, Coronavirus 229E (PCR) Not detected, SARS-CoV-2 (PCR) Not detected, Coronavirus NL63 (PCR) Not detected, Human Metapneumovir PCR Not detected, Influenza A (H1) PCR Not detected, Influ A (H1N1/09) PCR Not detected, Influenza A (H3) PCR Not detected, Influenza Type A (PCR) Not detected, Influenza Type B (PCR) Not detected, M. pneumoniae (PCR) Not detected, Parainfluenza 1 (PCR) Not detected, Parainfluenza 2 (PCR) Not detected, Parainfluenza 3 (PCR) Not detected, Parainfluenza 4 (PCR) Not detected, RSV (PCR) Not detected, Entero/Rhino (PCR) Not detected 10/13/24 21:25 10/13/24 21:25 Response Orders (Tests/Meds): ED MEDICATIONS Generic Name Dose Route Start Last Admin Trade Name Freq PRN Reason Stop Dose Admin Sodium Chloride 10 ml 10/13/24 21:41 Sodium Chloride 0.9% 10ml Flush Syringe IV 11/12/24 21:40 NEEDED PRN Maintain IV Site Discontinued Medications Generic Name Dose Route Start Last Admin Trade Name Freq PRN Reason Stop Dose Admin Albuterol/Ipratropium 9 ml 10/13/24 21:34 10/13/24 22:07 Ipratropium/Albuterol 3 Ml Neb IH 10/13/24 21:35 9 ml ONCE ONE Administration Magnesium Sulfate 2 gm in 50 mls @ 50 mls/hr 10/13/24 21:34 10/13/24 21:36 Magnesium Sulfate 2gm/50ml Premix IV 10/13/24 22:33 50 mls/hr ONCE ONE Administration Azithromycin 500 mg/ Sodium 250 mls @ 250 mls/hr 10/13/24 21:37 10/13/24 22:13 Chloride IV 10/13/24 21:38 250 mls/hr ONCE ONE Administration Ceftriaxone Sodium 1 gm/ 50 mls @ 100 mls/hr 10/13/24 21:37 10/13/24 22:09 Sodium Chloride IV 10/13/24 22:06 100 mls/hr ONCE ONE Administration Lactated Ringer's 1,000 mls @ 999 mls/hr 10/13/24 21:41 10/13/24 21:47 Lactated Ringer's 1000 Ml Bag IV 10/13/24 22:41 999 mls/hr .Q1H1M ONE Administration Methylprednisolone Sodium Succinate 125 mg 10/13/24 21:34 10/13/24 21:37 Methylprednisolone Sod Succ 125mg Vial IV 10/13/24 21:35 125 mg ONCE ONE Administration ORDERS Category Date Time Status CXR --portable [XR chest portable] Stat Exams 10/13/24 21:34 Completed Activated Partial Thrombo Time Stat Lab 10/13/24 21:25 Completed BNP [NT Pro Brain Natriuretic Pep.] Stat Lab 10/13/24 21:25 Completed CBC w/Auto Diff [Complete Blood Count Auto Diff] Stat Lab 10/13/24 21:25 Completed CMP [Comprehensive Metabolic Panel] Stat Lab 10/13/24 21:25 Completed Full Resp Panel w/COVID ([facility]) Routine Lab 10/13/24 21:40 Completed HIV Combo Stat Lab 10/13/24 21:25 Completed Hepatitis C Ab Qual. W/ RFX Stat Lab 10/13/24 21:25 Received Prothrombin Time INR Stat Lab 10/13/24 21:25 Completed Trop I [Troponin I] Stat Lab 10/13/24 21:25 Completed Troponin I Q3H Lab 10/14/24 00:45 Ordered Troponin I Q3H Lab 10/14/24 03:45 Ordered Blood Culture Stat Micro 10/13/24 22:06 Received VBG [Venous Blood Gas] Stat RT 10/13/24 21:34 Completed 12-lead EKG Request [ECG Request] Stat Y 10/13/24 21:33 Ordered ECG Data Tracing #1: ECG Narrative: Independently interpreted by me rate is 117, rhythm is regular, axis is rightward deviated, no ST elevation in anatomical contiguous leads, QTc 398, frequent PVCs MDM Narrative Medical Decision Narrative: In summary patient is a 59-year-old male past medical history described above who presents emergency department for evaluation of respiratory distress. Patient is hemodynamically stable and nontoxic-appearing upon arrival although has severe biphasic wheezing and is appearing in respiratory distress. Patient is having acceptable oxygen saturations on 5 L nasal cannula. Broad workup will be conducted with chest x-ray hematologic labs EKG, troponin, VBG, respiratory swab. Empiric antibiotics will be initiated with ceftriaxone azithromycin for presumed pneumonia. 1000 mL of lactated Ringer's will be administered, full sepsis bolus was considered but will be deferred given the patient appears largely euvolemic and I do not want to overload him acutely with volume. Patient's tachycardia is likely due to his respiratory distress with his known COPD and also he has been taken multiple doses of albuterol. He does not have any chest pain therefore I am not going to currently work him up for pulmonary embolism given that he has multiple alternative explanations for his tachycardia and shortness of breath. Initial workup reviewed by me no significant leukocytosis, hypercarbic acidosis CO2 129 impressive chronically elevated bicarb 56.1. No critical electrolyte abnormality or DONITA initial troponin undetectably low minimally elevated BNP. Tissue reperfusion assessment performed initially after lactated Ringer's has been started and I agree with continued deferral of sepsis bolus but continued limited crystalloid resuscitation. Chest x-ray informally interpreted by me there are chronic opacities without acute superimposed opacity formal read shows no acute cardiopulmonary findings. Case discussed with hospital medicine regarding management of admit the patient to service for continued evaluation at this time.
--- OUTSIDE RECORDS SUMMARY | 2024-10-13 21:37 | XMS_ITS | Clinical Summary ---
Author Organization Healthcare Address [facility] [place] [id number] Care Team Providers Care Study Lead Name Role Phone Kaushal Carr MD Primary Care Provider [phone] Social History Tobacco Use Types Packs/Day Years Used Date Smoking Tobacco: Never Assessed Sex and Gender Information Value Date Recorded Sex Assigned at Not on file Legal Sex Male 7:30 PM EDT Gender Identity Not on file Sexual Orientation Not on file Last Filed Vital Signs Vital Sign Reading Time Taken Comments Blood Pressure 118/84 10/31/2022 9:52 AM EDT Pulse 97 10/31/2022 9:52 AM EDT Temperature - - Respiratory Rate - - Oxygen Saturation - - Inhaled Oxygen Concentration - - Weight 87.5 kg (193 lb) 10/31/2022 9:52 AM EDT Height 180.3 cm (5' 11 ) 10/31/2022 9:52 AM EDT Body Mass Index 26.92 10/31/2022 9:52 AM EDT Plan of Treatment Health Maintenance Due Date Last Done Comments [facility]-Depression Screening 1967 [facility]-/Child/Adol SDOH Screenings 1965 [facility]- SDOH Screenings 09/13/1985 [facility]-Adult SDOH Screenings 09/13/1985 [facility]-DTaP,Tdap,and Td Vaccine s (1 - Tdap) 09/13/1986 [facility]-Hepatitis B Vaccines (1 of 3 - 19+ 3-dose series) 09/13/1986 CT Colonography 09/13/2012 Colonoscopy 09/13/2012 FIT-DNA 09/13/2012 FIT 09/13/2012 FOBT 09/13/2012 Sigmoidoscopy 09/13/2012 [facility]-Colorectal Cancer Screening 09/13/2012 [facility]-Pneumococcal Vaccine: 50 + Years (1 of 1 - PCV) 09/13/2017 [facility]-Zoster Vaccines (1 of 2) 09/13/2017 [id number] Vaccine (3 - season) 2023 08/16/2020, 07/19/2020 [facility]-Influenza Vaccine (Seas[place] n Ended) 2024 HPV Vaccines Aged Out No longer eligi ble based on patient's age to complete this topic [facility]-HIB Vaccines Aged Out No longer e ligible based on patient's age to complete this topic [facility]-Hepatitis A Vaccines Aged Out No longer eligible based on patient's age to complete this topic [facility]-IPV Vaccines Aged Out No longer e ligible based on patient's age to complete this topic [facility]-Rotavirus Vaccines Aged Out No lo nger eligible based on patient's age to complete this topic Insurance [employer] Care Teams Study Lead Relationship Specialty Start Date End Date Kaushal Crar MD [address] [place] [address] [place] [address] PCP - General 10/31/22
--- OUTSIDE RECORDS SUMMARY | 2024-10-13 21:37 | XMS_ITS | Encounter Summary ---
Author Organization [facility] Address [address] [place] [address] Care Team Providers Care Assistant Front Desk Manager Name Role Phone Kaushal Carr MD Primary Care Provider [phone] Encounter Details Date Type Department Care Team (Late st Contact Info) Description 01/10/2024 Orders Only External Location [address] [place] [address] Provider, External Social History Tobacco Use Types [...] Date/Time Associated Diagnosis Comments XR OUTSIDE IMAGES 01/10/2024 6:28 PM EDT documented in this encounter Results * XR OUTSIDE IMAGES (01/10/2024 6:28 PM EDT) Anatomical Region Laterality Modality Radiographic Alyx ging 01/10/2024 6:28 PM EDT us External Provider IMG XR PROCEDURES Final Result documented in this encounter Visit Diagnoses Not on filedocumented in this encounter Care Teams Assistant Front Desk Manager Relationship Specialty Start Date End Date Kaushal Carr MD [address] [place] [address] PCP - General 10/31/22 documented as of this encounter
--- OUTSIDE RECORDS SUMMARY | 2024-10-13 21:37 | XMS_ITS | Encounter Summary ---
Author Organization [facility] Address [address] [place] [address] Care Team Providers Care Archivist Political History Name Role Phone Kaushal Carr MD Primary Care Provider [phone] Encounter Details Date Type Department Care Team (Late st Contact Info) Description 10/17/2023 Orders Only External Location [address] [place] [phone] Provider, External Social History Tobacco Use Types [...] Date/Time Associated Diagnosis Comments CT OUTSIDE IMAGES 10/17/2023 7:20 AM EDT documented in this encounter Results * CT OUTSIDE IMAGES (10/17/2023 7:20 AM EDT) Anatomical Region Laterality Modality Computed Tomogra phy 10/17/2023 7:20 AM EDT us External Provider IMG CT PROCEDURES Final Result documented in this encounter Visit Diagnoses Not on filedocumented in this encounter Care Teams Archivist Political History Relationship Specialty Start Date End Date Kaushal Carr MD [address] [place] [address] PCP - General 10/31/22 documented as of this encounter
--- OUTSIDE RECORDS SUMMARY | 2024-10-13 21:37 | XMS_ITS | Encounter Summary ---
Author Organization [facility] Address [address] [place] [address] Care Team Providers Care Documentation Nurse Name Role Phone Kaushal Carr MD Primary Care Provider [phone] Encounter Details Date Type Department Care Team (Late st Contact Info) Description 12/23/2023 Orders Only External Location [address] [place] [phone] Provider, External Social History Tobacco Use Types [...] Date/Time Associated Diagnosis Comments CT OUTSIDE IMAGES 12/23/2023 9:34 PM EDT documented in this encounter Results * CT OUTSIDE IMAGES (12/23/2023 9:34 PM EDT) Anatomical Region Laterality Modality Computed Tomogra phy 12/23/2023 9:34 PM EDT us External Provider IMG CT PROCEDURES Final Result documented in this encounter Visit Diagnoses Not on filedocumented in this encounter Care Teams Documentation Nurse Relationship Specialty Start Date End Date Kaushal Carr MD [address] [place] [address] PCP - General 10/31/22 documented as of this encounter
--- OUTSIDE RECORDS SUMMARY | 2024-10-13 21:37 | XMS_ITS | Encounter Summary ---
Author Organization [facility] Address [address] [place] [address] Care Team Providers Care Jail Keeper Name Role Phone Kaushal Carr MD Primary Care Provider [phone] Encounter Details Date Type Department Care Team (Late st Contact Info) Description 07/12/2023 Orders Only External Location [address] [place] [phone] Provider, External Social History Tobacco Use Types [...] Procedure Name Priority Date/Time Associated Diagnosis Comments PET OUTSIDE IMAGES 07/12/2023 12:03 PM EDT documented in this encounter Results * PET OUTSIDE IMAGES (07/12/2023 12:03 PM EDT) Anatomical Region Laterality Modality Nuclear Medicine 07/12/2023 12:0 3 PM EDT External Provider IMG NM PROCEDURES Final Result documented in this encounter Visit Diagnoses Not on filedocumented in this encounter Care Teams Jail Keeper Relationship Specialty Start Date End Date Kaushal Carr MD [address] [place] [address] PCP - General 10/31/22 documented as of this encounter
--- OUTSIDE RECORDS SUMMARY | 2024-10-13 21:37 | XMS_ITS | Encounter Summary ---
Author Organization [facility] Address [address] [place] [address] Care Team Providers Care Cage Supervisor Name Role Phone Kaushal Carr MD Primary Care Provider [phone] Encounter Details Date Type Department Care Team (Late st Contact Info) Description 07/03/2023 Orders Only External Location [address] [place] [phone] Provider, External Social History Tobacco Use Types [...] Date/Time Associated Diagnosis Comments XR OUTSIDE IMAGES 07/03/2023 3:41 PM EDT documented in this encounter Results * XR OUTSIDE IMAGES (07/03/2023 3:41 PM EDT) Anatomical Region Laterality Modality Radiographic Alyx ging 07/03/2023 3:41 PM EDT us External Provider IMG XR PROCEDURES Final Result documented in this encounter Visit Diagnoses Not on filedocumented in this encounter Care Teams Cage Supervisor Relationship Specialty Start Date End Date Kaushal Carr MD [address] [place] [address] PCP - General 10/31/22 documented as of this encounter
--- OUTSIDE RECORDS SUMMARY | 2024-10-13 21:37 | XMS_ITS | Encounter Summary ---
Author Organization [facility] Address [address] [place] [address] Care Team Providers Care Custom Designer Name Role Phone Kaushal Carr MD Primary Care Provider [phone] Encounter Details Date Type Department Care Team (Late st Contact Info) Description 12/23/2023 Orders Only External Location [address] [place] [phone] Kendall Sylvester MD [address] [address] Social History Tobacco Use Types Packs/Day [...] Associated Diagnosis Comments CT OUTSIDE IMAGES 12/23/2023 12:01 AM EDT documented in this encounter Results * CT OUTSIDE IMAGES (12/23/2023 12:01 AM EDT) Anatomical Region Laterality Modality Computed Tomogra phy 12/23/2023 12:0 1 AM EDT us Kendall Sylvester MD IMG CT PROCEDURES Final Result documented in this encounter Visit Diagnoses Not on filedocumented in this encounter Care Teams Custom Designer Relationship Specialty Start Date End Date Kaushal Carr MD [address] [place] [address] PCP - General 10/31/22 documented as of this encounter
--- OUTSIDE RECORDS SUMMARY | 2024-10-13 21:37 | XMS_ITS | Encounter Summary ---
Author Organization [facility] Address [address] [place] [address] Care Team Providers Care Derrick Boat Leverman Name Role Phone Kaushal Carr MD Primary Care Provider [phone] Encounter Details Date Type Department Care Team (Late st Contact Info) Description 07/01/2023 Orders Only External Location [address] [place] [address] Julieta Roy APRN [address] [place] [address] Social History Tobacco Use Types Packs/Day Years [...] Date/Time Associated Diagnosis Comments CT OUTSIDE IMAGES 07/01/2023 1:57 PM EDT documented in this encounter Results * CT OUTSIDE IMAGES (07/01/2023 1:57 PM EDT) Anatomical Region Laterality Modality Computed Tomogra phy 07/01/2023 1:57 PM EDT Julieta Roy LATHE SET UP OPERATOR IMG CT PROCEDURES Final Result documented in this encounter Visit Diagnoses Not on filedocumented in this encounter Care Teams Derrick Boat Leverman Relationship Specialty Start Date End Date Kaushal Carr MD [address] [place] [address] PCP - General 10/31/22 documented as of this encounter
--- OUTSIDE RECORDS SUMMARY | 2024-10-13 21:37 | XMS_ITS | Encounter Summary ---
Author Organization [facility] Address [address] [place] [address] Care Team Providers Care Electrode Turner And Finisher Name Role Phone Kaushal Carr MD Primary Care Provider [phone] Encounter Details Date Type Department Care Team (Late st Contact Info) Description 12/22/2023 Orders Only External Location [address] [place] [phone] Kendall Sylvester MD [address] [address] Social History Tobacco Use Types [...] Date/Time Associated Diagnosis Comments XR OUTSIDE IMAGES 12/22/2023 10:13 PM EDT documented in this encounter Results * XR OUTSIDE IMAGES (12/22/2023 10:13 PM EDT) Anatomical Region Laterality Modality Radiographic Alyx ging 12/22/2023 10:1 3 PM EDT us Kendall Sylvester MD IMG XR PROCEDURES Final Result documented in this encounter Visit Diagnoses Not on filedocumented in this encounter Care Teams Electrode Turner And Finisher Relationship Specialty Start Date End Date Kaushal Carr MD [address] [place] [address] PCP - General 10/31/22 documented as of this encounter
[2024-10-13 21:39] LABS: VBG Base Excess 28.9 mmol/L (-2.4-2.3); VBG HCO3 56.1 mmol/L (23-30); VBG Oxygen Saturation 77.9 % (50-70); VBG PH 7.26 mmol/L (7.31-7.41); VBG PO2 41.3 mmol/L (28-40)
[2024-10-13 21:40] LABS: Basophils % 0.4 % (0.1-2.0); Eosinophils # 0.1 Kmm3 (0.0-0.4); Eosinophils % 1.1 % (0.1-12.0); Hematocrit 49.8 % (42.0-52.0); Hemoglobin 14.6 g/dL (14.1-18.0); Immature Granulocytes # 0.12 10^3uL; Immature Granulocytes % 1.2 %; Lymphocytes # 1.1 K/mm3 (0.7-4.5); Lymphocytes % 11.2 % (10-50); Mean Corpuscular HGB Conc 29.3 g/dL (31.8-35.4); Mean Corpuscular Hemoglobin 29.7 pg (27.0-31.2); Mean Corpuscular Volume 101.4 fl (80-94); Mean Platelet Volume 10.6 fl (7.4-10.4); Monocytes # 0.8 K/mm3 (0.1-1.0); Monocytes % 8.2 % (1.7-9.3); Neutrophils # 7.6 K/mm3 (1.8-7.8); Neutrophils % 77.9 % (37.0-80.0); Nucleated Red Blood Cells # 0 10^3/uL; Nucleated Red Blood Cells % 0 %; Platelet Count 197 K/mm3 (142-424); Red Blood Count 4.91 M/mm3 (4.60-6.20); Red Cell Distribution Width 12.4 % (11.5-17.5); Red Cell Distribution Width-SD 46.6 fL; White Blood Count 9.8 K/mm3 (4.8-10.8)
[2024-10-13 21:43] LABS: Lactate Venous 2.5 mmol/L (0.4-2.0); VBG PCO2 129.3 mmol/L (35-51)
[2024-10-13 21:43] LABS: Adenovirus,PCR Not Detected (NotDetected); Bordetella Pertussis Not Detected (NotDetected); Chlamydophila Pneumoniae, PCR Not Detected (NotDetected); Coronavirus 19, PCR Not Detected (NotDetected); Coronavirus 229E Not Detected (NotDetected); Coronavirus NL63 Not Detected (NotDetected); Coronavirus OC43 Not Detected (NotDetected); Coronovirus HKU1,PCR Not Detected (NotDetected); Human Metapneumovirus Not Detected (NotDetected); Influenza A, PCR Not Detected (NotDetected); Influenza AH1, 2009 Not Detected (NotDetected); Influenza AH1, PCR Not Detected (NotDetected); Influenza AH3,PCR Not Detected (NotDetected); Influenza B, PCR Not Detected (NotDetected); Mycoplasma Pneumoniae, PCR Not Detected (NotDetected); Parainfluenza 1, PCR Not Detected (NotDetected); Parainfluenza 2, PCR Not Detected (NotDetected); Parainfluenza 3, PCR Not Detected (NotDetected); Parainfluenza 4, PCR Not Detected (NotDetected); Respiratory Syncytial Virus Not Detected (NotDetected); Rhinovirus/Enterovirus Not Detected (NotDetected)
[2024-10-13] MEDS: LACTATED RINGERS 1000ML 1,000 ML 999 ML IV (21:47)
[2024-10-13 21:48] LABS: Albumin Level 4.2 g/dl (3.5-5.0); Chloride 85 mmol/L (98-107); Sodium 145 mmol/L (136-145)
[2024-10-13 21:49] LABS: Potassium 4.6 mmoL/L (3.5-5.1)
[2024-10-13 21:51] LABS: Alanine Aminotransferase 15 U/L (12-78); Albumin/Globulin Ratio 1.1 (1.1-1.8); Alkaline Phosphatase 85 U/L (38-126); Aspartate Amino Transferase 23 U/L (17-59); Bilirubin,Total 1.1 mg/dl (0.2-1.3); Blood Urea Nitrogen 22 mg/dl (9-20); Calcium 9.7 mg/dl (8.4-10.2); Creatinine Clearance Estimated 118 mL/min (50-200); Estimated Glomerular Filt Rate 100 ml/min (>60); GFR (African American) 121 ML/MIN (>60); Globulin 3.7 g/dL (1.3-3.2); Glucose 114 mg/dl (74-100); Total Protein,Serum 7.9 g/dl (6.3-8.2)
[2024-10-13 21:55] LABS: Activated Partial Thrombo Time 26.3 seconds (22.8-30.6); INR 1.03 (0.9-1.1); Prothrombin Time 11.4 seconds (10.1-12.5)
[2024-10-13 21:59] LABS: Anion Gap 11.6 mEq/L (5-15)
[2024-10-13 22:00] LABS: Carbon Dioxide 53 mmol/L (22.0-30.0)
--- NOTE | 2024-10-13 22:00 | PC.NURSE ---
critcal called from lab. CO2- 53. notified
[2024-10-13 22:06] LABS: Troponin I < 0.01 ng/ml (0.00-0.034)
[2024-10-13] MEDS: IPRATROPIUM/ALBUTEROL 3 ML NEB 9 ML IH (22:07)
[2024-10-13] MEDS: CEFTRIAXONE 1 GM 1 GM in 0.9 % SODIUM CHLORIDE 50 ML IV (22:09)
--- NOTE | 2024-10-13 22:10 | PC.NURSE ---
Difficulty obtaining blood cultures. Kirby Lima obtained both sets. second set sent at this time. blue band placed on pt. Abx started at this time.
[2024-10-13] MEDS: AZITHROMYCIN 500 MG in 0.9 % SODIUM CHLORIDE 250 ML 250 MG IV (22:13)
--- NOTE | 2024-10-13 22:14 | PC.NURSE ---
BIPAP settings- 07/10, FIO@ 40%, RR 22
--- NOTE | 2024-10-13 22:14 | PC.NURSE ---
2nd vbg to be drawn @[id number]
[2024-10-13 22:27] LABS: NT Pro Brain Natriuretic Pep. 240 pg/mL (0-125)
[2024-10-13 22:35] LABS: HIV Combo NEGATIVE (Negative)
--- NOTE | 2024-10-13 22:55 | PC.NURSE ---
called HS for admission at this time.
[2024-10-13 23:39] LABS: Hepatitis C Ab Qual. W/ RFX NEGATIVE (Negative)
[2024-10-13 23:53] LABS: Lactate Venous 1.6 mmol/L (0.4-2.0); VBG Base Excess 26.3 mmol/L (-2.4-2.3); VBG HCO3 53.5 mmol/L (23-30); VBG Oxygen Saturation 90.8 % (50-70); VBG PH 7.26 mmol/L (7.31-7.41); VBG PO2 61.2 mmol/L (28-40); VBG Total CO2 57.2 mmol/L (23-27)
[2024-10-14] VITALS (31 sets, daily range): BP systolic 103–152; BP diastolic 68–98; PULSE 78–125; RESP 15–33; TEMP 36.7–37.4; O2SAT 90–98; BMI 25.6
--- NOTE | 2024-10-14 00:33 | PC.NURSE ---
Pt arrived to ICU from ED via stretcher @[id number]
--- NOTE | 2024-10-14 00:35 | CT_ITS ---
PROCEDURE INFORMATION: Exam: CT Head Without Contrast Exam date and time: 10/14/2024 12:53 AM Age: 59 years old Clinical indication: Injury or trauma; Fall TECHNIQUE: Imaging protocol: Computed tomography of the head without contrast. Radiation optimization: All CT scans at this facility use at least one of these dose optimization techniques: automated exposure control; mA and/or kV adjustment per patient size (includes targeted exams where dose is matched to clinical indication); or iterative reconstruction. COMPARISON: CT ANGIO HEAD 12/22/2023 11:56 PM FINDINGS: Limitations: The images are degraded due to motion artifacts. The images are grainy. Brain: No acute intra- or extra axial fluid collections are identified. The basal cisterns are patent. No mass effect or midline shift is seen. The bynum-white matter differentiation is mildly obscured due to poor image quality.. Periventricular hypoattenuation are nonspecific but likely the sequela of chronic small vessel ischemic disease. Mild effacement of the sulci can be a normal variant or represent mild brain edema. Cerebral ventricles: The ventricles are nondilated. There could be tiny cavum septum pellucidum. Paranasal sinuses: There is mild paranasal sinus disease. There is a small mucous retention cyst in the left maxillary sinus. There is periosteal thickening of the maxillary sinuses. Mastoid air cells: The mastoid air cells appear grossly clear. Orbital cavities: The orbits appear normal. Bones: No acute calvarial fracture is identified. Soft tissues: No soft tissue abnormalities identified. Vasculature: There are atherosclerotic calcifications of the carotid siphons. IMPRESSION: 1. No evidence of acute intracranial hemorrhage, mass effect, or midline shift. 2. Please note that CT is insensitive to nonehemorrhagic strokes and MRI of the brain should be considered, if there is clinical concern for acute cerebral infarction.
--- NOTE | 2024-10-14 00:40 | PC.NURSE ---
During admission questions, nurse asked about any recent falls. Pt told this nurse that he had fallen today when trying to get to the hospital. pt stated he hit his head during this fall. Pt did not notify staff in er of this fall. Provider Gaudencio AVILEZ was notified at this time and a stat CT of the head was ordered.
--- NOTE | 2024-10-14 00:48 | PC.NURSE ---
Pt left floor to go to CT @1965
--- NOTE | 2024-10-14 01:02 | PC.NURSE ---
Pt returned to floor from CT @0102 via bed
[2024-10-14 01:31] LABS: Reflex Lactic Add Lactic Reflex
[2024-10-14 01:58] LABS: Lactic Acid Follow Up (RFLX 1) 1.3 mmol/L (0.7-2.1)
[2024-10-14 01:59] LABS: Blood Urea Nitrogen 21 mg/dl (9-20); Calcium 9.9 mg/dl (8.4-10.2); Chloride 86 mmol/L (98-107); Creatinine Clearance Estimated 120 mL/min (50-200); Estimated Glomerular Filt Rate 100 ml/min (>60); GFR (African American) 121 ML/MIN (>60); Glucose 126 mg/dl (74-100); Potassium 4.9 mmoL/L (3.5-5.1); Sodium 140 mmol/L (136-145)
[2024-10-14 02:09] LABS: Anion Gap 4.9 mEq/L (5-15); Troponin I 0.02 ng/ml (0.00-0.034)
[2024-10-14 02:11] LABS: Carbon Dioxide 54 mmol/L (22.0-30.0)
--- NOTE | 2024-10-14 02:12 | PC.NURSE ---
CO2 54 called by adrian- notified CAT Steven
--- NOTE | 2024-10-14 02:16 | P.HP_ITS ---
<Statement entered by Ananth Gaspar MD - 10/14/24 18:55> Rounded on patient after nurse practitioner. Personally examined and interviewed patient. Agree with exam findings and care plan as documented. History of Present Illness *Admission Date: 10/13/24 *Reason for visit:: Shortness of breath *History of present illness: This is a 59-year-old male with a past medical history of COPD, recurrent hypercapnic respiratory failure, hypertension, hyperlipidemia, CAD who presents emergency department today with complaints of shortness of breath. He is a longstanding COPD patient who continues to smoke. He initially contacted EMS for help with his oxygen tubing and was saturating in the 70s on his baseline oxygen requirement. He received a DuoNeb en route with little improvement in his oxygenation. He was noted to have oxygen sats of 80% on 5 L nasal cannula. He denied any chest pain. States that shortness of breath has been going on for months but has been particularly worse over the last couple days. Reports increasing his nebulizer usage at home without improvement. Emergency department workup notable for hypercapnic respiratory failure with a CO2 of 129 and a pH of 7.26. Mildly elevated BNP of 240. Respiratory pathogen panel negative. Procalcitonin negative. He was placed on BiPAP and admitted to the hospitalist service [facility] Disclaimer: The information contained in this section may have been updated after the patient was seen, as this information can be updated by other users. Medical History Acute on chronic respiratory failure with hypoxia and hypercapnia Acute and chronic respiratory failure with hypoxia Abnormal PET scan of colon CAD in [place] artery Pneumonia Abnormal electrocardiogram [ECG] [EKG] Dyspnea Pseudomonal pneumonia Hyperlipemia HTN (hypertension) Overweight (BMI 25.0-29.9) Pulmonary emphysema Chronic hypoxemic respiratory failure Tobacco abuse disorder Tobacco abuse counseling Screening for lung cancer Smoking greater than 30 pack years Dyspnea on exertion Tobacco use COPD (chronic obstructive pulmonary disease) Patient is following with pulmonary. He does have multiple nodules in the lung. He also has severe COPD. Initially in October this patient had no pulmonary nodules however in June 2021 and then 2023 there were new nodules noted. This along with the abnormalities found on the PET scan is obviously very concerning see below. Surgical History History of repair of ACL History of colonoscopy Family History Other Alcohol abuse Cancer Coronary artery disease Diabetes Emphysema lung Social History (Updated 10/14/24 @ 00:54 by Renita Coleman RN) Smoking Status: Current every day smoker tobacco type: cigarettes packs per day: 2 second hand exposure: Yes alcohol intake: former substance use type: denies use current occupational status: disabled Travel in the last 8 weeks?: None household members: friend(s) housing: house Have you lived/traveled outside US in past 30 days?: No Contact w/someone who lives/traveled outside US past 30 days?: No Exposure to someone with infectious disease in past 14 days?: No Do you have a fever (greater than 100.4 F or 38 C)?: No Have you tested positive for COVID-19?: No Exposed to someone with COVID-19 in past 14 days?: No Do you have a sore throat?: No Do you have a cough?: No Do you have any weakness?: No Do you have any diarrhea?: No Are you experiencing any unusual bleeding?: No Do you have any muscle aches/pain?: No Do you have any abdominal pain?: No Are you experiencing loss of taste or smell?: No Other Medical History Have you received the Flu Vaccine for this season: No Have you received the Pneumonia Vaccine: No Review of Systems Review of Systems Review of systems:: pertinent systems reviewed and negative unless documented below Review of systems (narrative): Negative except for HPI Meds Home Medications and Allergies Home Medications ?Medication ?Instructions ?Recorded ?Confirmed ?Type oxygen-air delivery systems 07/25/22 10/13/24 History aspirin 81 mg tablet,delayed 81 mg PO DAILY #30 tabs 0 12/28/22 10/13/24 Rx release (Adult Aspirin Regimen) Held on 12/23/23. Instructions: due to hemorrhoidal bleeding ergocalciferol (vitamin D2) 1,250 50,000 unit PO WEEKL Y Supplement 01/01/23 10/13/24 Rx mcg (50,000 unit) capsule #10 caps bupropion HCl 150 mg 24 hr tablet, 150 mg PO DAILY 06/1501/22/24 History extended release sodium chloride 0.65 % nasal spray 1 spray intranasal BIDP PRN Dry 12/23/23 10/13/24 History aerosol ([place] Saline) Nasal Passages nicotine 21 mg/24 hr daily 1 patch transdermal DAILY P RN 12/26/23 10/13/24 Rx transdermal patch nicotine cravings #14 ea atorvastatin 40 mg tablet 40 mg PO HS #90 tabs 4 01/22/24 Rx buspirone 5 mg tablet 5 mg PO BID 90 days #180 tab s 12/30/23 01/22/24 Rx metoprolol succinate 25 mg 12.5 mg (1/2 x 25 mg) PO DA WEN #30 12/30/23 01/22/24 Rx tablet,extended release 24 hr tabs (Toprol XL) nicotine (polacrilex) 2 mg buccal 2 mg buccal Q4H PRN nicotine 01/22/24 01/22/24 Rx mini lozenge cravings #81 ea albuterol sulfate 90 mcg/actuation See Rx Instructions .Route 04/01/24 10/13/24 Rx aerosol inhaler (Ventolin HFA) .COMPLEX #18 grams fluticasone fur. 100 mcg-umeclid 1 inh inhalation SERAFIN Y 90 days #90 07/22/24 10/13/24 Rx 62.5 mcg-vilant 25 mcg ea inhalat.powder (Trelegy Ellipta) ipratropium 0.5 mg-albuterol 3 mg See Rx Instructions .Route 09/17/24 10/13/24 Rx (2.5 mg base)/3 mL nebulization .COMPLEX #180 mL soln New Prescriptions to Start Prescriptions: Allergies Allergy/AdvReac Type Severity Reaction Status Date / Time aspirin (ASPIRIN) Allergy Mild Rash Verified 01/22/24 13:47 codeine (CODEINE) Allergy Mild Swelling Verified 01/22/24 13:47 of Lip/Tongue/Throat ibuprofen (IBUPROFEN) Allergy Unknown Rash Verified 01/22/24 13:47 acetaminophen (From Tylenol) Allergy Rash Verified 01/22/24 13:47 tramadol Allergy Rash Verified 01/22/24 13:47 Exam Data for Last 24 hours Vital signs and Labs for Last 24 Hours: Temp Pulse Resp BP Pulse Ox O2 Del Method O2 Flow Rate 98.1 F 106 H 21 146/90 H 95 BiPAP 6 10/14/24 00:33 10/14/24 02:00 10/14/24 02:00 10/14/24 02:00 10/14/24 02:00 10/14/24 01:00 10/13/24 21:34 FiO2 40 10/14/24 01:11 Laboratory Results - last 24 hr 10/13/24 21:25: WBC 9.8, RBC 4.91, Hgb 14.6, Hct 49.8, MCV 101.4 H, MCH 29.7, MCHC 29.3 L, RDW 12.4, Plt Count 197, MPV 10.6 H, Neut % (Auto) 77.9, Lymph % (Auto) 11.2, [place] % (Auto) 8.2, Eos % (Auto) 1.1, Baso % (Auto) 0.4, Neut # (Auto) 7.6, Lymph # (Auto) 1.1, [place] # (Auto) 0.8, Eos # (Auto) 0.1, Baso # (Auto) 0.0, PT 11.4, INR 1.03, APTT 26.3, Sodium 145, Potassium 4.6, Chloride 85 L, Carbon Dioxide 53 H*, Anion Gap 11.6, BUN 22 H, Creatinine 0.80, Estimated Creat Clear 118, Estimated GFR 100, Est GFR ( Amer) 121, Glucose 114 H, Calcium 9.7, Total Bilirubin 1.1, AST 23, ALT 15, Alkaline Phosphatase 85, Troponin I < 0.01, NT-Pro-B Natriuret Pep 240 H, Total Protein 7.9 D, Albumin 4.2, Globulin 3.7 H, Albumin/Globulin Ratio 1.1, HCV Ab [place] w/Rflx PCR Qn Negative, HIV Ag/Ab Combo Qual Negative 10/13/24 21:34: VBG pH 7.26 L, VBG pCO2 129.3 H, VBG pO2 41.3 H, VBG HCO3 56.1 H , VBG Total CO2 60.0 H, VBG O2 Saturation 77.9 H, VBG Base Excess 28.9 H, VBG Lactic Acid 2.5 H 10/13/24 21:40: Chlamy pneumoniae PCR Not detected, Adenovirus (PCR) Not detected, B. pertussis DNA (PCR) Not detected, Coronavirus OC43 (PCR) Not detected, Coronavirus HKU1 (PCR) Not detected, Coronavirus 229E (PCR) Not detected, SARS-CoV-2 (PCR) Not detected, Coronavirus NL63 (PCR) Not detected, Human Metapneumovir PCR Not detected, Influenza A (H1) PCR Not detected, Influ A (H1N1/09) PCR Not detected, Influenza A (H3) PCR Not detected, Influenza Type A (PCR) Not detected, Influenza Type B (PCR) Not detected, M. pneumoniae (PCR) Not detected, Parainfluenza 1 (PCR) Not detected, Parainfluenza 2 (PCR) Not detected, Parainfluenza 3 (PCR) Not detected, Parainfluenza 4 (PCR) Not detected, RSV (PCR) Not detected, Entero/Rhino (PCR) Not detected 10/13/24 23:35: VBG pH 7.26 L, VBG pCO2 123.0 H, VBG pO2 61.2 H, VBG HCO3 53.5 H , VBG Total CO2 57.2 H, VBG O2 Saturation 90.8 H, VBG Base Excess 26.3 H, VBG Lactic Acid 1.6 10/14/24 01:27: Sodium 140, Potassium 4.9, Chloride 86 L, Carbon Dioxide 54 H*, Anion Gap 4.9 L, BUN 21 H, Creatinine 0.80, Estimated Creat Clear 120, Estimated GFR 100, Est GFR ( Amer) 121, Glucose 126 H, Lactate 1.3, Calcium 9.9, Troponin I 0.02 I & O for Last 24 hours: Intake & Output 10/11/24 10/12/24 10/13/24 10/14/24 23:59 23:59 23:59 23:59 Output Total 300 / 300 Balance -300 / -300 Weight 81.647 kg 83.007 kg Constitutional Constitutional: no acute distress *Routine HEENT Exam Head: Present normocephalic Eye: Present EOMI and PERRL ENT: Present mucous membranes moist *Routine Neck Exam Neck: Present supple; Absent lymphadenopathy *Routine Respiratory Exam Respiratory: Present wheezes and crackles *Routine Cardiovascular Exam Cardiovascular: Present RRR *Routine Abdominal Exam Abdominal: Present soft and normoactive bowel sounds; Absent tenderness *Routine Rectal Exam Rectal:: deferred *Routine Genitalia Exam Genitalia:: deferred *Routine Extremities Exam Extremities: Absent cyanosis, clubbing or edema *Routine Skin Exam Skin: Present warm; Absent rash *Routine Neurological Exam Neurological: Present alert and oriented X3 Assessment and Plan *Assessment and plan (1) Acute exacerbation of chronic obstructive pulmonary disease: Status: Acute Category: Medical Code(s): J44.1 - Chronic obstructive pulmonary disease with (acute) exacerbation (2) CAD in [place] artery: Status: Acute Category: Medical Code(s): I25.10 - Atherosclerotic heart disease of [place] coronary artery without angina pectoris (3) Acute respiratory failure with hypoxia and hypercarbia: Status: Acute Category: Medical Code(s): J96.01 - Acute respiratory failure with hypoxia; J96.02 - Acute respiratory failure with hypercapnia Plan #Acute respiratory failure with hypoxia and hypercapnia #COPD exacerbation Remain on BiPAP overnight. Serial VBG's with escalation in settings as needed. Will consult pulmonology in a.m. Diffuse wheezing noted, continue Solu-Medrol 40 mg twice daily Continue DuoNebs and Pulmicort Will defer antibiotic coverage to pulmonology. Did receive azithromycin and Rocephin in the emergency department. Adequate coverage for overnight admission. #Tobacco abuse Nicotine patch
[2024-10-14] MEDS: IPRATROPIUM/ALBUTEROL 3 ML NEB IH ×9 (02:27→22:23)
[2024-10-14] MEDS: NICOTINE 21MG/24HR PATCH 21 MG TD (02:53)
[2024-10-14] MEDS: QUETIAPINE 25MG TABLET 25 MG PO (02:53)
[2024-10-14 04:37] LABS: Basophils % 0.3 % (0.1-2.0); Hematocrit 43.4 % (42.0-52.0); Immature Granulocytes # 0.06 10^3uL; Immature Granulocytes % 0.9 %; Lymphocytes # 0.4 K/mm3 (0.7-4.5); Lymphocytes % 6.4 % (10-50); Mean Corpuscular HGB Conc 28.8 g/dL (31.8-35.4); Mean Corpuscular Hemoglobin 29.3 pg (27.0-31.2); Mean Corpuscular Volume 101.9 fl (80-94); Mean Platelet Volume 10.6 fl (7.4-10.4); Monocytes # 0.1 K/mm3 (0.1-1.0); Monocytes % 0.9 % (1.7-9.3); Neutrophils # 6.1 K/mm3 (1.8-7.8); Neutrophils % 91.5 % (37.0-80.0); Nucleated Red Blood Cells # 0 10^3/uL; Nucleated Red Blood Cells % 0 %; Platelet Count 157 K/mm3 (142-424); Red Blood Count 4.26 M/mm3 (4.60-6.20); Red Cell Distribution Width 12.6 % (11.5-17.5); Red Cell Distribution Width-SD 47.2 fL; White Blood Count 6.7 K/mm3 (4.8-10.8)
[2024-10-14 04:54] LABS: Chol/HDL Ratio 3.7 (1-3.5); Cholesterol 153 mg/dl (140-200); HDL Cholesterol 41 mg/dl (40-60); Phosphorous 3.2 mg/dl (2.5-4.5); Triglycerides 60 mg/dl (30-150); VLDL Cholesterol 12 mg/dL (0-40)
[2024-10-14 05:05] LABS: Direct LDL Cholesterol 83.36 mg/dL (100-129)
[2024-10-14 05:07] LABS: MANUAL DIFFERENTIAL MANUAL DIFFERENTIAL (MANUAL DIFF)
[2024-10-14 05:08] LABS: Troponin I 0.01 ng/ml (0.00-0.034)
[2024-10-14 05:45] LABS: Lymphocytes % 5 % (10-50); Neutrophils % 95 % (42-76); Total Cells Counted 100
[2024-10-14 05:48] LABS: Platelet Estimate Normal; RBC Morphology Normal
[2024-10-14 06:18] LABS: Hemoglobin 12.7 g/dL (14.1-18.0)
[2024-10-14 06:31] LABS: Lactate Venous 1.1 mmol/L (0.4-2.0); VBG Base Excess 20.5 mmol/L (-2.4-2.3); VBG HCO3 46.9 mmol/L (23-30); VBG Oxygen Saturation 77.7 % (50-70); VBG PCO2 96.6 mmol/L (35-51); VBG PO2 40.9 mmol/L (28-40); VBG Total CO2 49.9 mmol/L (23-27)
[2024-10-14] MEDS: LORazepam 2MG/ML VIAL 0.25 MG IV ×2 (06:37→06:58)
--- NOTE | 2024-10-14 06:53 | PC.NURSE ---
Pt refused CRE swab at this time. Darlene TURNER made aware
--- NOTE | 2024-10-14 06:54 | PC.NURSE ---
Pt bladder scanned @0654 with 693mL
--- NOTE | 2024-10-14 06:54 | PC.NURSE ---
around 0615 RT entered pts room to obtain ABG. While trying to obtain lab patient altered and resistive to care. Myself and Dallin entered pts room to help RT. This nurse noticed how altered patient had became. Provider Gaudencio AVILEZ called and notified. Provider came to bedside. See MAR for new orders.
--- NOTE | 2024-10-14 07:00 | PC.NURSE ---
Addendum entered by Iesha Ortega RN 10/14/24 09:28: urine specimen sent to lab at this time per protocol Original Note: this nurse arrived to pt bedside to assist tape edge machine operator staff with In/Out catheterization due to urinary retention. 480ml of urine drained. pt tolerated well. pt placed on a purwick at this time for adequate I/Os.
--- NOTE | 2024-10-14 07:42 | HMH.PHAINT1 ---
Pharmacy Intervention Comments: MEDICATION RECONCILIATION COMPLETED ON PATIENT USING EXTERNAL FILL HISTORY FROM PHARMACY. -ZELDA CHRISTIANSEN, SOUMYAD
[2024-10-14 08:47] LABS: Microscopic, Urine URINE MICROSCOPIC (MICROSCOPIC)
[2024-10-14 08:48] LABS: Appearance,Urine CLEAR (Clear); Bilirubin,Urine Negative (Negative); Blood, Urine Negative (Negative); Color,Urine YELLOW (Yellow); Glucose,Urine (UA) Negative (Negative); Ketones,Urine Negative (Negative); Leukocyte Esterase,Urine Negative (Negative); Nitrate,Urine Negative (Negative); PH,Urine 6.5 (5.0-8.5); Protein,Urine Negative (Negative); Specific Gravity, Urine 1.025 (1.005-1.030); Urobilinogen,Urine 0.2 EU/dl (0.2)
[2024-10-14 09:06] LABS: Squamous Epithelial Cell,Urine Occasional #/hpf (0-5); WBC,Urine Occasional #/hpf (0-3)
[2024-10-14] MEDS: METHYLPREDNISOLONE SOD SUCC 40MG VIAL 40 MG IV ×2 (09:49→20:34)
--- NOTE | 2024-10-14 09:51 | P.CONS_ITS ---
History of Present Illness History of present illness: Mr. Lima is a 59-year-old male greater than [id number] smoking history COPD multiple pulmonary nodules presented today with worsening respiratory distress and pulmonary was called for further evaluation and management. [facility] Disclaimer: The information contained in this section may have been updated after the patient was seen, as this information can be updated by other users. Medical History Acute on chronic respiratory failure with hypoxia and hypercapnia Acute and chronic respiratory failure with hypoxia Abnormal PET scan of colon CAD in [place] artery Pneumonia Abnormal electrocardiogram [ECG] [EKG] Dyspnea Pseudomonal pneumonia Hyperlipemia HTN (hypertension) Overweight (BMI 25.0-29.9) Pulmonary emphysema Chronic hypoxemic respiratory failure Tobacco abuse disorder Tobacco abuse counseling Screening for lung cancer Smoking greater than 30 pack years Dyspnea on exertion Tobacco use COPD (chronic obstructive pulmonary disease) Patient is following with pulmonary. He does have multiple nodules in the lung. He also has severe COPD. Initially in October this patient had no pulmonary nodules however in June 2021 and then 2023 there were new nodules noted. This along with the abnormalities found on the PET scan is obviously very concerning see below. Surgical History History of repair of ACL History of colonoscopy Family History Other Alcohol abuse Cancer Coronary artery disease Diabetes Emphysema lung Social History (Updated 10/14/24 @ 00:54 by Renita Coleman RN) Smoking Status: Current every day smoker tobacco type: cigarettes packs per day: 2 second hand exposure: Yes alcohol intake: former substance use type: denies use current occupational status: disabled Travel in the last 8 weeks?: None household members: friend(s) housing: house Have you lived/traveled outside US in past 30 days?: No Contact w/someone who lives/traveled outside US past 30 days?: No Exposure to someone with infectious disease in past 14 days?: No Do you have a fever (greater than 100.4 F or 38 C)?: No Have you tested positive for COVID-19?: No Exposed to someone with COVID-19 in past 14 days?: No Do you have a sore throat?: No Do you have a cough?: No Do you have any weakness?: No Do you have any diarrhea?: No Are you experiencing any unusual bleeding?: No Do you have any muscle aches/pain?: No Do you have any abdominal pain?: No Are you experiencing loss of taste or smell?: No Review of Systems Review of Systems Review of systems:: unable to obtain Pulmonology Exam Inpatient Vital signs and Labs for Last 24 Hours: Temp Pulse Resp BP Pulse Ox O2 Del Method O2 Flow Rate 99.4 F 109 H 33 H 116/77 97 Nasal Cannula 4 10/14/24 08:00 10/14/24 09:12 10/14/24 08:00 10/14/24 08:00 10/14/24 08:00 10/14/24 08:00 10/14/24 08:00 FiO2 40 10/14/24 09:12 Laboratory Results - last 24 hr 10/13/24 21:25: WBC 9.8, RBC 4.91, Hgb 14.6, Hct 49.8, MCV 101.4 H, MCH 29.7, M CHC 29.3 L, RDW 12.4, Plt Count 197, MPV 10.6 H, Neut % (Auto) 77.9, Lymph % (Auto) 11.2, [place] % (Auto) 8.2, Eos % (Auto) 1.1, Baso % (Auto) 0.4, Neut # (Auto) 7.6, Lymph # (Auto) 1.1, [place] # (Auto) 0.8, Eos # (Auto) 0.1, Baso # (Auto) 0.0, PT 11.4, INR 1.03, APTT 26.3, Sodium 145, Potassium 4.6, Chloride 85 L, Carbon Dioxide 53 H*, Anion Gap 11.6, BUN 22 H, Creatinine 0.80, Estimated Creat Clear 118, Estimated GFR 100, Est GFR ( Amer) 121, Glucose 114 H, Calcium 9.7, Total Bilirubin 1.1, AST 23, ALT 15, Alkaline Phosphatase 85, Troponin I < 0.01, NT-Pro-B Natriuret Pep 240 H, Total Protein 7.9 D, Albumin 4.2, Globulin 3.7 H, Albumin/Globulin Ratio 1.1, HCV Ab [place] w/Rflx PCR Qn Negative, HIV Ag/Ab Combo Qual Negative 10/13/24 21:34: VBG pH 7.26 L, VBG pCO2 129.3 H, VBG pO2 41.3 H, VBG HCO3 56.1 H , VBG Total CO2 60.0 H, VBG O2 Saturation 77.9 H, VBG Base Excess 28.9 H, VBG Lactic Acid 2.5 H 10/13/24 21:40: Chlamy pneumoniae PCR Not detected, Adenovirus (PCR) Not detected, B. pertussis DNA (PCR) Not detected, Coronavirus OC43 (PCR) Not detected, Coronavirus HKU1 (PCR) Not detected, Coronavirus 229E (PCR) Not detected, SARS-CoV-2 (PCR) Not detected, Coronavirus NL63 (PCR) Not detected, Human Metapneumovir PCR Not detected, Influenza A (H1) PCR Not detected, Influ A (H1N1/09) PCR Not detected, Influenza A (H3) PCR Not detected, Influenza Type A (PCR) Not detected, Influenza Type B (PCR) Not detected, M. pneumoniae (PCR) Not detected, Parainfluenza 1 (PCR) Not detected, Parainfluenza 2 (PCR) Not detected, Parainfluenza 3 (PCR) Not detected, Parainfluenza 4 (PCR) Not detected, RSV (PCR) Not detected, Entero/Rhino (PCR) Not detected 10/13/24 23:35: VBG pH 7.26 L, VBG pCO2 123.0 H, VBG pO2 61.2 H, VBG HCO3 53.5 H , VBG Total CO2 57.2 H, VBG O2 Saturation 90.8 H, VBG Base Excess 26.3 H, VBG Lactic Acid 1.6 10/14/24 01:27: Sodium 140, Potassium 4.9, Chloride 86 L, Carbon Dioxide 54 H*, Anion Gap 4.9 L, BUN 21 H, Creatinine 0.80, Estimated Creat Clear 120, Estimated GFR 100, Est GFR ( Amer) 121, Glucose 126 H, Lactate 1.3, Calcium 9.9, Troponin I 0.02 10/14/24 04:15: WBC 6.7 D, RBC 4.26 L, Hgb 12.7 L D, Hct 43.4, MCV 101.9 H, MCH 29.3, MCHC 28.8 L, RDW 12.6, Plt Count 157, MPV 10.6 H, Neut % (Auto) 91.5 H, L ymph % (Auto) 6.4 L, [place] % (Auto) 0.9 L, Eos % (Auto) 0.0 L, Baso % (Auto) 0.3, Neut # (Auto) 6.1, Lymph # (Auto) 0.4 L, [place] # (Auto) 0.1, Eos # (Auto) 0.0, Baso # (Auto) 0.0, Total Counted 100, Neutrophils % (Manual) 95 H, Lymphocytes % (Manual) 5 L, Platelet Estimate Normal, RBC Morphology Normal, Phosphorus 3.2, Troponin I 0.01, Triglycerides 60, Cholesterol 153, LDL Cholesterol Direct 83.36 L, VLDL Cholesterol 12, HDL Cholesterol 41, Cholesterol/HDL Ratio 3.7 H 10/14/24 06:00: VBG pH 7.30 L, VBG pCO2 96.6 H, VBG pO2 40.9 H, VBG HCO3 46.9 H, VBG Total CO2 49.9 H, VBG O2 Saturation 77.7 H, VBG Base Excess 20.5 H, VBG Lactic Acid 1.1 10/14/24 08:15: Urine Color Yellow, Urine Appearance Clear, Urine pH 6.5, Ur Specific [place] 1.025, Urine Protein Negative, Urine Glucose (UA) Negative, Urine Ketones Negative, Urine Blood Negative, Urine Nitrate Negative, Urine Bilirubin Negative, Urine Urobilinogen 0.2, Ur Leukocyte Esterase Negative, Urine RBC 5-10, Urine WBC Occasional, Ur Squamous Epith Cells Occasional, Urine Bacteria None I & O for Labs for Last 24 Hours: Intake & Output 10/11/24 10/12/24 10/13/24 10/14/24 23:59 23:59 23:59 23:59 Intake Total 0 / 0 Output Total 300 / 300 Balance -300 / -300 Weight 180 lb 183 lb Constitutional: Present severe distress Head: Present normocephalic and atraumatic ENT: Present normal exam, normal oropharynx and mucous membranes moist Neck: Present normal inspection and full ROM Respiratory: Present prolonged expiratory phase, respiratory distress, wheezes, distant breath sounds and diminished air movement; Absent able to speak in complete sentences Cardiac: Present S1/S2, Tachycardia and radial pulses present GI: Present soft and distention; Absent tenderness or guarding Skin: Present intact; Absent cyanosis or jaundice Neuro: Absent alert, awake or oriented x 3 Extremities: Present normal inspection; Absent clubbing or cyanosis Psychiatric: Present cooperative and unable to assess Meds Home Medications and Allergies Home Medications ?Medication ?Instructions ?Recorded ?Confirmed ?Type sodium chloride 0.65 % nasal spray 1 spray intranasal BIDP PRN Dry 12/23/23 10/13/24 History aerosol ([place] Saline) Nasal Passages atorvastatin 40 mg tablet 40 mg PO HS #90 tabs 4 10/14/24 Rx metoprolol succinate 25 mg 12.5 mg (1/2 x 25 mg) PO DA WEN #30 12/30/23 10/14/24 Rx tablet,extended release 24 hr tabs (Toprol XL) fluticasone fur. 100 mcg-umeclid 1 inh inhalation SERAFIN Y 90 days #90 07/22/24 10/13/24 Rx 62.5 mcg-vilant 25 mcg ea inhalat.powder (Trelegy Ellipta) albuterol sulfate 90 mcg/actuation 2 puff inhalation Q 4HP PRN 10/14/24 10/14/24 History aerosol inhaler (Ventolin HFA) Shortness Of Breath Or Wheezing amitriptyline 25 mg tablet 25 mg PO HS 10/14/24 History docusate sodium 100 mg capsule 100 mg PO BID 10/14/24 10/14/24 History ergocalciferol (vitamin D2) 1,250 50,000 unit PO WEEKL Y 10/14/24 10/13/24 History mcg (50,000 unit) capsule ipratropium 0.5 mg-albuterol 3 mg 3 ml inhalation Q4HP PRN Shortness 10/14/24 10/14/24 History (2.5 mg base)/3 mL nebulization Of Breath Or Wheezing soln New Prescriptions to Start Prescriptions: Allergies Allergy/AdvReac Type Severity Reaction Status Date / Time aspirin (ASPIRIN) Allergy Mild Rash Verified 01/22/24 13:47 codeine (CODEINE) Allergy Mild Swelling Verified 01/22/24 13:47 of Lip/Tongue/Throat ibuprofen (IBUPROFEN) Allergy Unknown Rash Verified 01/22/24 13:47 acetaminophen (From Tylenol) Allergy Rash Verified 01/22/24 13:47 tramadol Allergy Rash Verified 01/22/24 13:47 Results Laboratory Findings 10/14/24 04:15 10/14/24 01:27 PT/INR, D-dimer PT 11.4 seconds (10.1-12.5) 10/13/24 21:25 INR 1.03 (0.9-1.1) 10/13/24 21:25 Abnormal lab findings: Abnormal Labs 10/13/24 10/13/24 10/13/24 21:25 21:34 23:35 RBC Hgb MCV 101.4 H MCHC 29.3 L MPV 10.6 H Neut % (Auto) Lymph % (Auto) [place] % (Auto) Eos % (Auto) Lymph # (Auto) Neutrophils % (Manual) Lymphocytes % (Manual) VBG pH 7.26 L 7.26 L VBG pCO2 129.3 H 123.0 H VBG pO2 41.3 H 61.2 H VBG HCO3 56.1 H 53.5 H VBG Total CO2 60.0 H 57.2 H VBG O2 Saturation 77.9 H 90.8 H VBG Base Excess 28.9 H 26.3 H VBG Lactic Acid 2.5 H Chloride 85 L Carbon Dioxide 53 H* Anion Gap BUN 22 H Glucose 114 H NT-Pro-B Natriuret Pep 240 H Globulin 3.7 H LDL Cholesterol Direct Cholesterol/HDL Ratio 10/14/24 10/14/24 10/14/24 01:27 04:15 06:00 RBC 4.26 L Hgb 12.7 L D MCV 101.9 H MCHC 28.8 L MPV 10.6 H Neut % (Auto) 91.5 H Lymph % (Auto) 6.4 L [place] % (Auto) 0.9 L Eos % (Auto) 0.0 L Lymph # (Auto) 0.4 L Neutrophils % (Manual) 95 H Lymphocytes % (Manual) 5 L VBG pH 7.30 L VBG pCO2 96.6 H VBG pO2 40.9 H VBG HCO3 46.9 H VBG Total CO2 49.9 H VBG O2 Saturation 77.7 H VBG Base Excess 20.5 H VBG Lactic Acid Chloride 86 L Carbon Dioxide 54 H* Anion Gap 4.9 L BUN 21 H Glucose 126 H NT-Pro-B Natriuret Pep Globulin LDL Cholesterol Direct 83.36 L Cholesterol/HDL Ratio 3.7 H Assessment and Plan *Assessment and plan (1) Acute exacerbation of chronic obstructive pulmonary disease: Status: Acute Category: Medical Code(s): J44.1 - Chronic obstructive pulmonary disease with (acute) exacerbation (2) Acute on chronic respiratory failure with hypoxia and hypercapnia: Status: Acute Category: Medical Code(s): J96.21 - Acute and chronic respiratory failure with hypoxia; J96.22 - Acute and chronic respiratory failure with hypercapnia Plan Mr. Lima is a 59-year-old male greater than [id number] smoking history COPD multiple pulmonary nodules presented today with worsening respiratory distress and pulmonary was called for further evaluation and management. Presented with complaint of worsening shortness of breath respiratory distress and pulmonary was called for further j evaluation and management. Afebrile. Hemodynamically stable. No evidence of leukocytosis. Comprehensive respiratory viral PCR panel negative. Blood gas upon admission hypercarbic respiratory failure the pH is 7.26 and pCO2 129.3 Chest x-ray upon admission no dense consolidative changes noted. Increased interstitial markings. Currently being managed for community-acquired pneumonia and COPD exacerbation with ceftriaxone, azithromycin along with DuoNebs every 4 hours along with Pulmicort every 12 scheduled. Decreased breath sounds bilateral Mittie. Severe respiratory distress. Alert and oriented x 0. Plan: Continue noninvasive ventilator therapy BiPAP at 22/10 with a rate of 24 and FiO2 of 40% DuoNebs every 2 hours along with Pulmicort every 12 scheduled Continue methylprednisolone 40 mg IV Q12 hrs Follow-up VBG in 1 hour Change antibiotics to levofloxacin 750 mg IV daily pending culture results Total critical care time spent on this patient is 35 minutes managing acute hypoxic and hypercarbic respiratory failure needing NIV. This time spent include reviewing test results including interpreting chest x-rays, labs and arterial blood gas, optimizing the BiPAP settings,formulating plan of care, discussing the plan of care with the team and the nursing staff.
[2024-10-14] MEDS: ALBUTEROL 0.083% 2.5 MG/3 ML NEB 5 MG IH (11:28)
[2024-10-14] MEDS: BUDESONIDE 0.5MG/2ML NEB 0.5 MG IH ×2 (11:34→17:55)
[2024-10-14 11:55] LABS: Lactate Venous 1.5 mmol/L (0.4-2.0); VBG Base Excess 27.4 mmol/L (-2.4-2.3); VBG HCO3 52.7 mmol/L (23-30); VBG Oxygen Saturation 63.6 % (50-70); VBG PCO2 93.5 mmol/L (35-51); VBG PH 7.37 mmol/L (7.31-7.41); VBG PO2 30.8 mmol/L (28-40); VBG Total CO2 55.6 mmol/L (23-27)
--- NOTE | 2024-10-14 12:00 | PC.NURSE ---
called and Spoke to RAGHAV Purdy to inform her that the patient is currently very anxious and paranoid. pt refuses to take his PO medication or let me hang is IV antibiotics because hes never seen them before and wants his sister here first. this nurse helped the patient call his sister at this time but unsure of her predicated time of arrival.
--- NOTE | 2024-10-14 12:59 | PC.NURSE ---
pt asking for an Uber haul driver to leave the facility. pt educated on his current condition and the plan of care. pt stated he didnt care and needed to go home. MD notified of pts continued restlessness and paranoia at this time.
--- NOTE | 2024-10-14 13:36 | EXP.ACUTE.PN ---
Subjective *Date: 10/14/24 *Time: 22:21 Interval history: Some improvement in mentation this morning. Showing improvement in blood gas. Patient later in the morning took off his mask and became very paranoid. Stating that he was brought to the hospital against his will. Wants to go home. Tried to explain that he has respiratory failure with hypercapnia. Patient does not seem to grasp the severity of this. Refusing antibiotics at this time. Remains afebrile. Blood pressure stable. Medical Exam Vital signs and Labs for Last 24 Hours: Vital Signs Temp Pulse Pulse Resp BP BP Pulse Ox 10/14/24 12:00 125 H 20 145/89 H 90 L 10/14/24 12:00 120 H 10/14/24 11:37 110 H 10/14/24 11:37 109 H 10/14/24 11:28 107 H 10/14/24 11:28 109 H 10/14/24 11:28 10/14/24 11:00 10/14/24 10:00 94 H 20 118/81 93 L 10/14/24 09:12 109 H 10/14/24 09:12 109 H 10/14/24 09:12 10/14/24 09:04 10/14/24 09:00 10/14/24 08:00 110 H 10/14/24 08:00 99.4 F 111 H 33 H 116/77 98 10/14/24 08:00 117 H 97 10/14/24 07:00 10/14/24 06:00 95 H 22 103/75 L 97 10/14/24 05:00 10/14/24 04:00 105 H 10/14/24 04:00 98.3 F 98 H 21 119/80 95 10/14/24 03:00 10/14/24 02:28 79 10/14/24 02:28 78 10/14/24 02:28 10/14/24 02:00 111 H 98 10/14/24 02:00 106 H 21 146/90 H 95 10/14/24 01:11 10/14/24 01:00 10/14/24 00:36 10/14/24 00:33 98.1 F 108 H 19 147/96 H 93 L 10/14/24 00:14 98.7 F 102 H 31 H 146/96 H 10/14/24 00:00 113 H 06/24/25 22:59 113 H 93 L 10/13/24 22:32 25 H 126/92 H 92 L 10/13/24 22:18 104 H 31 H 133/90 97 10/13/24 22:15 103 H 27 H 97 10/13/24 22:08 105 H 10/13/24 22:08 105 H 10/13/24 22:08 10/13/24 22:00 105 H 22 95 10/13/24 21:45 110 H 22 96 10/13/24 21:34 113 H 29 H 96 10/13/24 21:34 98.7 F 117 H 39 H 109/80 L 93 L O2 Del Method O2 Flow Rate FiO2 10/14/24 12:00 BiPAP 10/14/24 12:00 10/14/24 11:37 10/14/24 11:37 10/14/24 11:28 10/14/24 11:28 10/14/24 11:28 40 10/14/24 11:00 BiPAP 10/14/24 10:00 BiPAP 10/14/24 09:12 10/14/24 09:12 10/14/24 09:12 40 10/14/24 09:04 40 10/14/24 09:00 Nasal Cannula 3 10/14/24 08:00 10/14/24 08:00 Nasal Cannula 3 10/14/24 08:00 Nasal Cannula 4 10/14/24 07:00 Nasal Cannula 5 10/14/24 06:00 10/14/24 05:00 BiPAP 10/14/24 04:00 10/14/24 04:00 10/14/24 03:00 BiPAP 10/14/24 02:28 10/14/24 02:28 10/14/24 02:28 40 10/14/24 02:00 BiPAP 40 10/14/24 02:00 10/14/24 01:11 40 10/14/24 01:00 BiPAP 10/14/24 00:36 40 10/14/24 00:33 BiPAP 40 10/14/24 00:14 10/14/24 00:00 10/13/24 22:59 BiPAP 10/13/24 22:32 BiPAP 10/13/24 22:18 BiPAP 10/13/24 22:15 10/13/24 22:08 10/13/24 22:08 10/13/24 22:08 40 10/13/24 22:00 10/13/24 21:45 10/13/24 21:34 10/13/24 21:34 Nasal Cannula 6 Intake and Output 10/13/24 10/14/24 10/14/24 23:59 07:59 15:59 Intake Total 0 / 0 Output Total 300 / 800 500 / 800 Balance -300 / -800 -500 / -800 Intake: Intake, Oral Amount 0 / 0 Output: Output, Urine Amount 300 / 300 Output, Urine Amount (Catheter) 500 / 500 Straight 500 / 500 Other: Number of Unmeasured Voids 0 Weight 81.647 kg 83.007 kg Patient Weight 10/14/24 23:59 Weight 83.007 kg Laboratory Results - last 24 hr 10/13/24 21:25: WBC 9.8, RBC 4.91, Hgb 14.6, Hct 49.8, MCV 101.4 H, MCH 29.7, MCHC 29.3 L, RDW 12.4, Plt Count 197, MPV 10.6 H, Neut % (Auto) 77.9, Lymph % (Auto) 11.2, [place] % (Auto) 8.2, Eos % (Auto) 1.1, Baso % (Auto) 0.4, Neut # (Auto) 7.6, Lymph # (Auto) 1.1, [place] # (Auto) 0.8, Eos # (Auto) 0.1, Baso # (Auto) 0.0, PT 11.4, INR 1.03, APTT 26.3, Sodium 145, Potassium 4.6, Chloride 85 L, Carbon Dioxide 53 H*, Anion Gap 11.6, BUN 22 H, Creatinine 0.80, Estimated Creat Clear 118, Estimated GFR 100, Est GFR ( Amer) 121, Glucose 114 H, Calcium 9.7, Total Bilirubin 1.1, AST 23, ALT 15, Alkaline Phosphatase 85, Troponin I < 0.01, NT-Pro-B Natriuret Pep 240 H, Total Protein 7.9 D, Albumin 4.2, Globulin 3.7 H, Albumin/Globulin Ratio 1.1, HCV Ab MARYLIN w/Rflx PCR Qn Negative, HIV Ag/Ab Combo Qual Negative 10/13/24 21:34: VBG pH 7.26 L, VBG pCO2 129.3 H, VBG pO2 41.3 H, VBG HCO3 56.1 H, VBG Total CO2 60.0 H, VBG O2 Saturation 77.9 H, VBG Base Excess 28.9 H, VBG Lactic Acid 2.5 H 10/13/24 21:40: Chlamy pneumoniae PCR Not detected, Adenovirus (PCR) Not detected, B. pertussis DNA (PCR) Not detected, Coronavirus OC43 (PCR) Not detected, Coronavirus HKU1 (PCR) Not detected, Coronavirus 229E (PCR) Not detected, SARS-CoV-2 (PCR) Not detected, Coronavirus NL63 (PCR) Not detected, Human Metapneumovir PCR Not detected, Influenza A (H1) PCR Not detected, Influ A (H1N1/09) PCR Not detected, Influenza A (H3) PCR Not detected, Influenza Type A (PCR) Not detected, Influenza Type B (PCR) Not detected, M. pneumoniae (PCR) Not detected, Parainfluenza 1 (PCR) Not detected, Parainfluenza 2 (PCR) Not detected, Parainfluenza 3 (PCR) Not detected, Parainfluenza 4 (PCR) Not detected, RSV (PCR) Not detected, Entero/Rhino (PCR) Not detected 10/13/24 23:35: VBG pH 7.26 L, VBG pCO2 123.0 H, VBG pO2 61.2 H, VBG HCO3 53.5 H, VBG Total CO2 57.2 H, VBG O2 Saturation 90.8 H, VBG Base Excess 26.3 H, VBG Lactic Acid 1.6 10/14/24 01:27: Sodium 140, Potassium 4.9, Chloride 86 L, Carbon Dioxide 54 H*, Anion Gap 4.9 L, BUN 21 H, Creatinine 0.80, Estimated Creat Clear 120, Estimated GFR 100, Est GFR ( Amer) 121, Glucose 126 H, Lactate 1.3, Calcium 9.9, Troponin I 0.02 10/14/24 04:15: WBC 6.7 D, RBC 4.26 L, Hgb 12.7 L D, Hct 43.4, MCV 101.9 H, MCH 29.3, MCHC 28.8 L, RDW 12.6, Plt Count 157, MPV 10.6 H, Neut % (Auto) 91.5 H, Lymph % (Auto) 6.4 L, [place] % (Auto) 0.9 L, Eos % (Auto) 0.0 L, Baso % (Auto) 0.3, Neut # (Auto) 6.1, Lymph # (Auto) 0.4 L, [place] # (Auto) 0.1, Eos # (Auto) 0.0, Baso # (Auto) 0.0, Total Counted 100, Neutrophils % (Manual) 95 H, Lymphocytes % (Manual) 5 L, Platelet Estimate Normal, RBC Morphology Normal, Phosphorus 3.2, Troponin I 0.01, Triglycerides 60, Cholesterol 153, LDL Cholesterol Direct 83.36 L, VLDL Cholesterol 12, HDL Cholesterol 41, Cholesterol/HDL Ratio 3.7 H 10/14/24 06:00: VBG pH 7.30 L, VBG pCO2 96.6 H, VBG pO2 40.9 H, VBG HCO3 46.9 H, VBG Total CO2 49.9 H, VBG O2 Saturation 77.7 H, VBG Base Excess 20.5 H, VBG Lactic Acid 1.1 10/14/24 08:15: Urine Color Yellow, Urine Appearance Clear, Urine pH 6.5, Ur Specific [place] 1.025, Urine Protein Negative, Urine Glucose (UA) Negative, Urine Ketones Negative, Urine Blood Negative, Urine Nitrate Negative, Urine Bilirubin Negative, Urine Urobilinogen 0.2, Ur Leukocyte Esterase Negative, Urine RBC 5-10, Urine WBC Occasional, Ur Squamous Epith Cells Occasional, Urine Bacteria None 10/14/24 11:50: VBG pH 7.37, VBG pCO2 93.5 H, VBG pO2 30.8, VBG HCO3 52.7 H, VBG Total CO2 55.6 H, VBG O2 Saturation 63.6, VBG Base Excess 27.4 H, VBG Lactic Acid 1.5 I & O for Labs for Last 24 Hours: Intake & Output 10/11/24 10/12/24 10/13/24 10/14/24 23:59 23:59 23:59 23:59 Intake Total 0 / 0 Output Total 800 / 800 Balance -800 / -800 Weight 81.647 kg 83.007 kg Constitutional: Present moderate distress, average body habitus, chronically ill appearing and agitated Head: Present atraumatic and normocephalic Respiratory: Present accessory muscle use, prolonged expiratory phase and rhonchi; Absent wheezes or crackles Cardiac: Present Reg Rate and Rhythm GI: Present soft and normal bowel sounds; Absent distention or tenderness Extremities: Present normal inspection and full ROM Skin: Present intact; Absent erythema Neuro: Present Grossly Intact, alert, awake and moves all extremities Comment:: Oriented to self and place, poor insight into situation and condition Assessment and Plan *Assessment and plan (1) Acute exacerbation of chronic obstructive pulmonary disease: Status: Acute Category: Medical Code(s): J44.1 - Chronic obstructive pulmonary disease with (acute) exacerbation (2) CAD in [place] artery: Status: Acute Category: Medical Code(s): I25.10 - Atherosclerotic heart disease of [place] coronary artery without angina pectoris (3) Acute respiratory failure with hypoxia and hypercarbia: Status: Acute Category: Medical Code(s): J96.01 - Acute respiratory failure with hypoxia; J96.02 - Acute respiratory failure with hypercapnia Plan 59-year-old male who presented with confusion and weakness. Found to have severe hypercapnic respiratory failure with CO2 greater than 120. Showing some improvement with BiPAP. Wanting to leave. Requesting that we call an Uber. Informed him that he was not medically appropriate to discharge from the hospital. Counseled him against AMA. Patient continuing to stay inpatient at this time, high risk for elopement. Problems addressed as follows: #Acute respiratory failure with hypoxia and hypercapnia #COPD exacerbation # Suspected community-acquired pneumonia - discussed case with pulmonology, recommend continuing BiPAP. Patient intermittently compliant. VBG showing improvement. Repeat pH this afternoon was 7.37. pCO2 still 90. - Has significant metabolic acid-base disorder with metabolic alkalosis and respiratory acidosis that appears compensated. - Patient refusing doses. Continue Levaquin 750 mg daily if patient allows - Labs showed normal white count of 6.7, hemoglobin 12.7. Kidney function normal with BUN 21, creatinine 0.8. Bicarb 54. - Repeat CBC, CMP, magnesium ordered for the morning - Continue DuoNebs every 2-4 hours and Pulmicort twice daily - Continue methylprednisolone 40 mg IV twice daily #Tobacco abuse: nicotine patch Resume home amitriptyline 25 mg nightly Resume home metoprolol succinate increased to 25 mg daily for blood pressure and heart rate control Full code Regular diet Lovenox 40 mg subcu daily
--- NOTE | 2024-10-14 13:47 | PC.NURSE ---
sister called and checked on pt status. with pt permission i gave the sister an update on the plan of care but stated that the patient was insistent on going home. she stated that he gets like this and makes stuff up, but im not coming up there or he will want me to take him home.
--- OUTSIDE RECORDS SUMMARY | 2024-10-14 14:22 | XMS_ITS | Encounter Summary ---
Author Organization [facility] Address [address] [place] [address] Care Team Providers Care Front Loader Residential Driver Name Role Phone Kaushal Carr MD Primary Care Provider [phone] Encounter Details Date Type Department Care Team (Late st Contact Info) Description 12/23/2023 Orders Only External Location [address] [place] [id number] Kendall Sylvester MD [address] [address] Social History Tobacco Use Types [...] on filedocumented in this encounter Care Teams Front Loader Residential Driver Relationship Specialty Start Date End Date Kaushal Carr MD [address] [place] [address] PCP - General 10/31/22 documented as of this encounter
--- OUTSIDE RECORDS SUMMARY | 2024-10-14 14:22 | XMS_ITS | Encounter Summary ---
Author Organization [facility] Address [address] [place] [address] Care Team Providers Care Product Safety Tester Name Role Phone Kaushal Carr MD Primary Care Provider [phone] Encounter Details Date Type Department Care Team (Late st Contact Info) Description 12/22/2023 Orders Only External Location [address] [place] [phone] Kendall Sylvester MD [address] [address] Social History Tobacco Use Types [...] on filedocumented in this encounter Care Teams Product Safety Tester Relationship Specialty Start Date End Date Kaushal Carr MD [address] [place] [address] PCP - General 10/31/22 documented as of this encounter
--- OUTSIDE RECORDS SUMMARY | 2024-10-14 14:22 | XMS_ITS | Clinical Summary ---
Author Organization [facility] Address [facility] [place] [id number] Care Team Providers Care Sporting Goods Salesperson Name Role Phone Kaushal Carr MD Primary Care Provider [phone] Social History Tobacco Use Types Packs/Day Years [...] 09/13/2017 UKY-Zoster Vaccines (1 of 2) 09/13/2017 [id number] Vaccine (3 - season) 2023 08/16/2020, 07/19/2020 [...] this topic Insurance [employer] Care Teams Sporting Goods Salesperson Relationship Specialty Start Date End Date Kaushal Carr MD [address] [place] [address] [place] Qu[place] [address] PCP - General 10/31/22
--- OUTSIDE RECORDS SUMMARY | 2024-10-14 14:22 | XMS_ITS | Encounter Summary ---
Author Organization [facility] Address [address] [place] [address] Care Team Providers Care Refrigeration Manager Name Role Phone Kaushal Carr MD Primary Care Provider [phone] Encounter Details Date Type Department Care Team (Late st Contact Info) Description 12/22/2023 Orders Only External Location [address] [place] [phone] Provider, External Social History Tobacco Use Types [...] on filedocumented in this encounter Care Teams Refrigeration Manager Relationship Specialty Start Date End Date Kaushal Carr MD [address] [place] [address] PCP - General 10/31/22 documented as of this encounter
--- OUTSIDE RECORDS SUMMARY | 2024-10-14 14:22 | XMS_ITS | Encounter Summary ---
Author Organization [facility] Address [address] [place] [address] Care Team Providers Care Corporate Communications Specialist Name Role Phone Kaushal Carr MD Primary Care Provider [phone] Encounter Details Date Type Department Care Team (Late st Contact Info) Description 01/10/2024 Orders Only External Location [address] [place] [address] Provider, External Social History Tobacco Use Types [...] on filedocumented in this encounter Care Teams Corporate Communications Specialist Relationship Specialty Start Date End Date Kaushal Carr MD [address] [place] [address] PCP - General 10/31/22 documented as of this encounter
--- OUTSIDE RECORDS SUMMARY | 2024-10-14 14:22 | XMS_ITS | Encounter Summary ---
Author Organization [facility] Address [address] [place] [address] Care Team Providers Care Blanket Weaver Name Role Phone Kaushal Carr MD Primary Care Provider [phone] Encounter Details Date Type Department Care Team (Late st Contact Info) Description 07/01/2023 Orders Only External Location [address] [place] [address] Julieta Roy APRN [address] [place] [address] Social History Tobacco Use Types Packs/Day Years [...] phy 07/01/2023 1:57 PM EDT Julieta Roy [facility] WELLNESS COORDINATOR IMG CT PROCEDURES Final Result documented in this encounter Visit Diagnoses Not on filedocumented in this encounter Care Teams Blanket Weaver Relationship Specialty Start Date End Date Kaushal Carr MD [address] [place] [address] PCP - General 10/31/22 documented as of this encounter
--- OUTSIDE RECORDS SUMMARY | 2024-10-14 14:22 | XMS_ITS | Encounter Summary ---
Author Organization [facility] Address [address] [place] [address] Care Team Providers Care Pediatric Dermatologist Name Role Phone Kaushal Carr MD Primary Care Provider [phone] Encounter Details Date Type Department Care Team (Late st Contact Info) Description 12/06/2023 Orders Only External Location [address] [place] [address] Juan Luis Chong MD [address] [place] [address] [place] [address] Social History Tobacco Use Types [...] on filedocumented in this encounter Care Teams Pediatric Dermatologist Relationship Specialty Start Date End Date Kaushal Carr MD [address] [place] [address] PCP - General 10/31/22 documented as of this encounter
--- OUTSIDE RECORDS SUMMARY | 2024-10-14 14:22 | XMS_ITS | Encounter Summary ---
Author Organization [facility] Address [address] [place] [address] Care Team Providers Care Engraver Seals Name Role Phone Kaushal Carr MD Primary Care Provider [phone] Encounter Details Date Type Department Care Team (Late st Contact Info) Description 07/12/2023 Orders Only External Location [address] [place] [phone] Provider, External Social History Tobacco Use Types [...] on filedocumented in this encounter Care Teams Engraver Seals Relationship Specialty Start Date End Date Kaushal Carr MD [address] [place] [address] PCP - General 10/31/22 documented as of this encounter
--- OUTSIDE RECORDS SUMMARY | 2024-10-14 14:22 | XMS_ITS | Encounter Summary ---
Author Organization [facility] Address [address] [place] [address] Care Team Providers Care Emergency Medical Technician Basic Name Role Phone Kaushal Carr MD Primary Care Provider [phone] Encounter Details Date Type Department Care Team (Late st Contact Info) Description 12/22/2023 Orders Only External Location [address] [place] [phone] Kendall Sylvester MD [address] [place] [address] Social History Tobacco Use Types Packs/Day [...] on filedocumented in this encounter Care Teams Emergency Medical Technician Basic Relationship Specialty Start Date End Date Kaushal Carr MD [address] [place] [address] PCP - General 10/31/22 documented as of this encounter
--- OUTSIDE RECORDS SUMMARY | 2024-10-14 14:22 | XMS_ITS | Encounter Summary ---
Author Organization [facility] Address [address] [place] [address] Care Team Providers Care Gi Asst Name Role Phone Kaushal Carr MD Primary Care Provider [phone] Encounter Details Date Type Department Care Team (Late st Contact Info) Description 07/03/2023 Orders Only External Location [address] [place] [phone] Provider, External Social History Tobacco Use Types [...] on filedocumented in this encounter Care Teams Gi Asst Relationship Specialty Start Date End Date Kaushal Carr MD [address] [place] [address] PCP - General 10/31/22 documented as of this encounter
--- OUTSIDE RECORDS SUMMARY | 2024-10-14 14:22 | XMS_ITS | Encounter Summary ---
Author Organization [facility] Address [address] [place] [address] Care Team Providers Care Skilled Nursing Facility Counselor Name Role Phone Kaushal Carr MD Primary Care Provider [phone] Encounter Details Date Type Department Care Team (Late st Contact Info) Description 10/17/2023 Orders Only External Location [address] [place] [phone] Provider, External Social History Tobacco Use Types [...] on filedocumented in this encounter Care Teams Skilled Nursing Facility Counselor Relationship Specialty Start Date End Date Kaushal Carr MD [address] [place] [address] PCP - General 10/31/22 documented as of this encounter
--- OUTSIDE RECORDS SUMMARY | 2024-10-14 14:22 | XMS_ITS | Encounter Summary ---
Author Organization [facility] Address [address] [place] [address] Care Team Providers Care Glue Bone Crusher Name Role Phone Kaushal Carr MD Primary Care Provider [phone] Encounter Details Date Type Department Care Team (Late st Contact Info) Description 12/22/2023 Orders Only External Location [address] [place] [phone] Kendall Sylvester MD [address] [place] [address] Social History Tobacco Use Types Packs/Day [...] on filedocumented in this encounter Care Teams Glue Bone Crusher Relationship Specialty Start Date End Date Kaushal Carr MD [address] [place] [address] PCP - General 10/31/22 documented as of this encounter
--- OUTSIDE RECORDS SUMMARY | 2024-10-14 14:22 | XMS_ITS | Encounter Summary ---
Author Organization [facility] Address [address] [place] [address] Care Team Providers Care Head Operator Sulfide Name Role Phone Kaushal Carr MD Primary Care Provider [phone] Encounter Details Date Type Department Care Team (Late st Contact Info) Description 12/22/2023 Orders Only External Location [address] [place] [phone] Kendall Sylvester MD [address] [place] [address] Social History Tobacco Use Types Packs/Day [...] on filedocumented in this encounter Care Teams Head Operator Sulfide Relationship Specialty Start Date End Date Kaushal Carr MD [address] [place] [address] PCP - General 10/31/22 documented as of this encounter
--- OUTSIDE RECORDS SUMMARY | 2024-10-14 14:22 | XMS_ITS | Encounter Summary ---
Author Organization [facility] Address [address] [place] [address] Care Team Providers Care Bull Rider Name Role Phone Kaushal Carr MD Primary Care Provider [phone] Encounter Details Date Type Department Care Team (Late st Contact Info) Description 12/23/2023 Orders Only External Location [address] [place] [address] Provider, External Social History Tobacco Use Types [...] on filedocumented in this encounter Care Teams Bull Rider Relationship Specialty Start Date End Date Kaushal Carr MD [address] [place] [address] PCP - General 10/31/22 documented as of this encounter
--- NOTE | 2024-10-14 14:30 | PC.NURSE ---
Dr. Ng at bedside. At this time pt is agreeable to putting the bipap back on but does still refuse the medications and still plans to call friends/ family to come get him. Dr. Gaspar informed the patient that he would not be discharging him but he is welcome to sign out AMA if he insists.
[2024-10-14] MEDS: acetaZOLAMIDE 250 MG TABLET PO (20:34)
--- NOTE | 2024-10-14 22:31 | PC.NURSE ---
pt is placed back on the bipap at this time.
[2024-10-15] VITALS (26 sets, daily range): BP systolic 104–126; BP diastolic 63–92; PULSE 95–115; RESP 15–28; TEMP 36.5–37; O2SAT 91–96; BMI 25.7
[2024-10-15] MEDS: IPRATROPIUM/ALBUTEROL 3 ML NEB IH ×10 (00:11→22:08)
[2024-10-15 05:52] LABS: Basophils % 0.3 % (0.1-2.0); Hematocrit 41.7 % (42.0-52.0); Hemoglobin 12.2 g/dL (14.1-18.0); Immature Granulocytes # 0.07 10^3uL; Lymphocytes % 14.5 % (10-50); Mean Corpuscular HGB Conc 29.3 g/dL (31.8-35.4); Mean Corpuscular Hemoglobin 29.2 pg (27.0-31.2); Mean Corpuscular Volume 99.8 fl (80-94); Mean Platelet Volume 10.9 fl (7.4-10.4); Monocytes # 0.5 K/mm3 (0.1-1.0); Monocytes % 6.9 % (1.7-9.3); Neutrophils # 5.3 K/mm3 (1.8-7.8); Neutrophils % 77.3 % (37.0-80.0); Nucleated Red Blood Cells # 0 10^3/uL; Nucleated Red Blood Cells % 0 %; Platelet Count 177 K/mm3 (142-424); Red Blood Count 4.18 M/mm3 (4.60-6.20); Red Cell Distribution Width 12.6 % (11.5-17.5); Red Cell Distribution Width-SD 46.2 fL; White Blood Count 6.9 K/mm3 (4.8-10.8)
[2024-10-15 06:06] LABS: Albumin Level 3.9 g/dl (3.5-5.0); Chloride 87 mmol/L (98-107); Potassium 4.3 mmoL/L (3.5-5.1); Sodium 142 mmol/L (136-145)
[2024-10-15 06:08] LABS: Blood Urea Nitrogen 32 mg/dl (9-20); Creatinine Clearance Estimated 87 mL/min (50-200); Estimated Glomerular Filt Rate 69 ml/min (>60); GFR (African American) 83 ML/MIN (>60)
[2024-10-15 06:09] LABS: Alanine Aminotransferase 13 U/L (12-78); Albumin/Globulin Ratio 1.4 (1.1-1.8); Alkaline Phosphatase 63 U/L (38-126); Aspartate Amino Transferase 25 U/L (17-59); Bilirubin,Total 0.6 mg/dl (0.2-1.3); Calcium 9.3 mg/dl (8.4-10.2); Globulin 2.8 g/dL (1.3-3.2); Glucose 117 mg/dl (74-100); Magnesium 2.3 mg/dl (1.6-2.3); Total Protein,Serum 6.7 g/dl (6.3-8.2)
[2024-10-15] MEDS: BUDESONIDE 0.5MG/2ML NEB 0.5 MG IH ×2 (06:09→17:42)
[2024-10-15 06:18] LABS: Anion Gap 8.3 mEq/L (5-15); Carbon Dioxide 51 mmol/L (22.0-30.0)
[2024-10-15] MEDS: ENOXAPARIN 40MG/0.4ML SYRINGE 40 MG SUBCUT (09:06)
[2024-10-15] MEDS: acetaZOLAMIDE 250 MG TABLET PO ×2 (09:06→20:18)
[2024-10-15] MEDS: METHYLPREDNISOLONE SOD SUCC 40MG VIAL 40 MG IV ×2 (09:06→20:18)
[2024-10-15] MEDS: METOPROLOL SUCCINATE XL 25MG TABLET 25 MG PO (09:07)
--- NOTE | 2024-10-15 10:09 | P.PN_ITS ---
Subjective *Date: 10/15/24 *Time: 13:11 Interval history: No acute respiratory vents overnight. Patient denies any new respiratory complaints. Admits improving respiratory symptoms. Requesting to be discharged home. Pulmonology Exam Inpatient Vital signs and Labs for Last 24 Hours: Temp Pulse Resp BP Pulse Ox O2 Del Method O2 Flow Rate 98.2 F 98 H 21 122/79 96 Nasal Cannula 3 10/15/24 08:00 10/15/24 10:01 10/15/24 08:00 10/15/24 08:00 10/15/24 08:03 10/15/24 09:00 10/15/24 09:00 FiO2 40 10/15/24 06:00 Laboratory Results - last 24 hr 10/14/24 11:50: VBG pH 7.37, VBG pCO2 93.5 H, VBG pO2 30.8, VBG HCO3 52.7 H, VBG Total CO2 55.6 H, VBG O2 Saturation 63.6, VBG Base Excess 27.4 H, VBG Lactic Acid 1.5 10/15/24 05:12: WBC 6.9, RBC 4.18 L, Hgb 12.2 L, Hct 41.7 L, MCV 99.8 H, MCH 29.2, MCHC 29.3 L, RDW 12.6, Plt Count 177, MPV 10.9 H, Neut % (Auto) 77.3, Lymph % (Auto) 14.5, [facility] % (Auto) 6.9, Eos % (Auto) 0.0 L, Baso % (Auto) 0.3, Neut # (Auto) 5.3, Lymph # (Auto) 1.0, [facility] # (Auto) 0.5, Eos # (Auto) 0.0, Baso # (Auto) 0.0, Sodium 142, Potassium 4.3, Chloride 87 L, Carbon Dioxide 51 H*, Anion Gap 8.3, BUN 32 H D, Creatinine 1.10 D, Estimated Creat Clear 87, Estimated GFR 69, Est GFR ( Amer) 83 D, Glucose 117 H, Calcium 9.3, Magnesium 2.3, Total Bilirubin 0.6, AST 25, ALT 13, Alkaline Phosphatase 63, Total Protein 6.7, Albumin 3.9, Globulin 2.8, Albumin/Globulin Ratio 1.4 Temp Pulse Resp BP Pulse Ox O2 Del Method O2 Flow Rate 99.4 F 109 H 33 H 116/77 97 Nasal Cannula 4 10/14/24 08:00 10/14/24 09:12 10/14/24 08:00 10/14/24 08:00 10/14/24 08:00 10/14/24 08:00 10/14/24 08:00 FiO2 40 10/14/24 09:12 Laboratory Results - last 24 hr 10/13/24 21:25: WBC 9.8, RBC 4.91, Hgb 14.6, Hct 49.8, MCV 101.4 H, MCH 29.7, MCHC 29.3 L, RDW 12.4, Plt Count 197, MPV 10.6 H, Neut % (Auto) 77.9, Lymph % (Auto) 11.2, [facility] % (Auto) 8.2, Eos % (Auto) 1.1, Baso % (Auto) 0.4, Neut # (Auto) 7.6, Lymph # (Auto) 1.1, [facility] # (Auto) 0.8, Eos # (Auto) 0.1, Baso # (Auto) 0.0, PT 11.4, INR 1.03, APTT 26.3, Sodium 145, Potassium 4.6, Chloride 85 L, Carbon Dioxide 53 H*, Anion Gap 11.6, BUN 22 H, Creatinine 0.80, Estimated Creat Clear 118, Estimated GFR 100, Est GFR ( Amer) 121, Glucose 114 H, Calcium 9.7, Total Bilirubin 1.1, AST 23, ALT 15, Alkaline Phosphatase 85, Troponin I < 0.01, NT-Pro-B Natriuret Pep 240 H, Total Protein 7.9 D, Albumin 4.2, Globulin 3.7 H, Albumin/Globulin Ratio 1.1, HCV Ab [place] w/Rflx PCR Qn Negative, HIV Ag/Ab Combo Qual Negative 10/13/24 21:34: VBG pH 7.26 L, VBG pCO2 129.3 H, VBG pO2 41.3 H, VBG HCO3 56.1 H , VBG Total CO2 60.0 H, VBG O2 Saturation 77.9 H, VBG Base Excess 28.9 H, VBG Lactic Acid 2.5 H 10/13/24 21:40: Chlamy pneumoniae PCR Not detected, Adenovirus (PCR) Not det ected, B. pertussis DNA (PCR) Not detected, Coronavirus OC43 (PCR) Not detected, Coronavirus HKU1 (PCR) Not detected, Coronavirus 229E (PCR) Not detected, SARS-CoV-2 (PCR) Not detected, Coronavirus NL63 (PCR) Not detected, Human Metapneumovir PCR Not detected, Influenza A (H1) PCR Not detected, Influ A (H1N1/09) PCR Not detected, Influenza A (H3) PCR Not detected, Influenza Type A (PCR) Not detected, Influenza Type B (PCR) Not detected, M. pneumoniae (PCR) Not detected, Parainfluenza 1 (PCR) Not detected, Parainfluenza 2 (PCR) Not detected, Parainfluenza 3 (PCR) Not detected, Parainfluenza 4 (PCR) Not detected, RSV (PCR) Not detected, Entero/Rhino (PCR) Not detected 10/13/24 23:35: VBG pH 7.26 L, VBG pCO2 123.0 H, VBG pO2 61.2 H, VBG HCO3 53.5 H , VBG Total CO2 57.2 H, VBG O2 Saturation 90.8 H, VBG Base Excess 26.3 H, VBG Lactic Acid 1.6 10/14/24 01:27: Sodium 140, Potassium 4.9, Chloride 86 L, Carbon Dioxide 54 H*, Anion Gap 4.9 L, BUN 21 H, Creatinine 0.80, Estimated Creat Clear 120, Estimated GFR 100, Est GFR ( Amer) 121, Glucose 126 H, Lactate 1.3, Calcium 9.9, Troponin I 0.02 10/14/24 04:15: WBC 6.7 D, RBC 4.26 L, Hgb 12.7 L D, Hct 43.4, MCV 101.9 H, MCH 29.3, MCHC 28.8 L, RDW 12.6, Plt Count 157, MPV 10.6 H, Neut % (Auto) 91.5 H, Lymph % (Auto) 6.4 L, [facility] % (Auto) 0.9 L, Eos % (Auto) 0.0 L, Baso % (Auto) 0.3, Neut # (Auto) 6.1, Lymph # (Auto) 0.4 L, [facility] # (Auto) 0.1, Eos # (Auto) 0.0, Baso # (Auto) 0.0, Total Counted 100, Neutrophils % (Manual) 95 H, Lymphocytes % (Manual) 5 L, Platelet Estimate Normal, RBC Morphology Normal, Phosphorus 3.2, Troponin I 0.01, Triglycerides 60, Cholesterol 153, LDL Cholesterol Direct 83.36 L, VLDL Cholesterol 12, HDL Cholesterol 41, Cholesterol/HDL Ratio 3.7 H 10/14/24 06:00: VBG pH 7.30 L, VBG pCO2 96.6 H, VBG pO2 40.9 H, VBG HCO3 46.9 H, VBG Total CO2 49.9 H, VBG O2 Saturation 77.7 H, VBG Base Excess 20.5 H, VBG Lactic Acid 1.1 10/14/24 08:15: Urine Color Yellow, Urine Appearance Clear, Urine pH 6.5, Ur Specific [place] 1.025, Urine Protein Negative, Urine Glucose (UA) Negative, Urine Ketones Negative, Urine Blood Negative, Urine Nitrate Negative, Urine Bilirubin Negative, Urine Urobilinogen 0.2, Ur Leukocyte Esterase Negative, Urine RBC 5-10, Urine WBC Occasional, Ur Squamous Epith Cells Occasional, Urine Bacteria None I & O for Labs for Last 24 Hours: Intake & Output 10/12/24 10/13/24 10/14/24 10/15/24 23:59 23:59 23:59 23:59 Intake Total 360 / 360 350 / 350 Output Total 800 / 800 1250 / 1250 Balance -440 / -440 -900 / -900 Weight 180 lb 183 lb 183 lb 11.2 oz Intake & Output 10/11/24 10/12/24 10/13/24 10/14/24 23:59 23:59 23:59 23:59 Intake Total 0 / 0 Output Total 300 / 300 Balance -300 / -300 Weight 180 lb 183 lb Microbiology Reports for the Last 24 Hours: Microbiology 10/13/24 22:06 Blood Blood Culture - Preliminary NO GROWTH AFTER 24 HOURS 10/13/24 22:03 Blood Blood Culture - Preliminary NO GROWTH AFTER 24 HOURS 10/14/24 15:26 Sputum - Expectorated Sputum Gram Stain - Final Constitutional: Present severe distress Head: Present normocephalic and atraumatic ENT: Present normal exam, normal oropharynx and mucous membranes moist Neck: Present normal inspection and full ROM Respiratory: Present prolonged expiratory phase, respiratory distress, wheezes and able to speak in complete sentences Cardiac: Present S1/S2, Tachycardia and radial pulses present GI: Present soft and distention; Absent tenderness or guarding Skin: Present intact; Absent cyanosis or jaundice Neuro: Present alert, awake and oriented x 3 Extremities: Present normal inspection; Absent clubbing or cyanosis Psychiatric: Present normal affect and cooperative Assessment and Plan *Assessment and plan (1) Acute exacerbation of chronic obstructive pulmonary disease: Status: Acute Category: Medical Code(s): J44.1 - Chronic obstructive pulmonary disease with (acute) exacerbation (2) Acute on chronic respiratory failure with hypoxia and hypercapnia: Status: Acute Category: Medical Code(s): J96.21 - Acute and chronic respiratory failure with hypoxia; J96.22 - Acute and chronic respiratory failure with hypercapnia Plan Mr. Lima is a 59-year-old male greater than [id number] smoking history COPD multiple pulmonary nodules presented today with worsening respiratory distress and pulmonary was called for further evaluation and management. Presented with complaint of worsening shortness of breath respiratory distress and pulmonary was called for further j evaluation and management. Afebrile. Hemodynamically stable. No evidence of leukocytosis. Comprehensive respiratory viral PCR panel negative. Blood gas upon admission hypercarbic respiratory failure the pH is 7.26 and pCO2 129.3 Chest x-ray upon admission no dense consolidative changes noted. Increased interstitial markings. Currently being managed for community-acquired pneumonia and COPD exacerbation with ceftriaxone, azithromycin along with DuoNebs every 4 hours along with Pulmicort every 12 scheduled. Decreased breath sounds bilateral On initial examination severe respiratory distress. Alert and oriented x 0. Interval update: Febrile. Hemodynamically stable. No evidence of leukocytosis. Complains of BiPAP overnight. Significant improvement in mentation. Increased air movement with diffuse wheezing noted. Blood gas from this morning creatinine 2 0 chronic hypercarbic respiratory failure pH of 7.70 CO2 94.3. Plan: Resume noninvasive ventilator therapy BiPAP at 22/10 with a rate of 24 and FiO2 of 40% DuoNebs every 4 hours along with Pulmicort every 12 scheduled Continue methylprednisolone 40 mg IV Q12 hrs Continue levofloxacin 750 mg IV daily pending culture results
[2024-10-15 10:58] LABS: VBG Base Excess 19.7 mmol/L (-2.4-2.3); VBG Oxygen Saturation 95.1 % (50-70); VBG PCO2 94.3 mmol/L (35-51); VBG PH 7.31 mmol/L (7.31-7.41); VBG PO2 80.2 mmol/L (28-40); VBG Total CO2 48.9 mmol/L (23-27)
--- NOTE | 2024-10-15 11:24 | HMH.OTEV ---
OT Inpatient Evaluation Rehab OT IP Evaluation Start: 10/15/24 08:15 Freq: ONCE Status: Active Protocol: Document 10/15/24 11:15 MONICA (Rec: 10/15/24 11:24 MONICA [id number]) Rehab OT IP Assessment Subjective History PER HPI narrative: Patient is a 59-year-old male past medical history of COPD on 2 L nasal cannula at home who presents to the emergency department for evaluation of shortness of breath. History is obtained by patient and EMS report. He has a longstanding history of COPD continues to smoke, states he is compliant with his medications. Initially contacted EMS for help with his oxygen tubing and was saturating in the 70s on his baseline oxygen requirement. He was given a DuoNeb en route and was saturating in the high 80s on 5 L nasal cannula. He does not have any chest pain rather just have shortness of breath which is been going on for months but is particularly worse over the last few days. No chest pain. He has had multiple breathing treatments at home . No other acute complaints at this time. Subjective It is my feet. Pt was supine in bed when therapy arrived. Pt agreed to initial OT eval. pt orient x3. pt reported they live alone in trailer with ramp. Pt reported they live beside brother. pt reports brother drives them. pt reports ind in functional mobility with cane and walker . pt reported ind in ADLs and IADLs. pt reports they have shower chair and grab bars and bedside commode. pr reports normally on 2L O2, currently on 4 L O2. Pt agreeable to sit on EOB. Pt went from supine to EOB with SBA. pt demo good static sitting balance on EOB with SBA. pt then agreed to complete sit to stand transfeer. pt completed STS transfer with CGA. Pt reported they felt weak and could not complete functional mobility. Pt held static standing balance fairly. Pt then completed dynamic standing balance with marching and weight shifting with CGA. pt demo fair endurance and tolerance to activity. Pt reported they were tired. Pt sat back on EOB and went from EOB to supine with SBA. Pt educated on deep breathing to bring O2 levels back up to 90. Pt left with call light and all other needs within reach. Objective Patient Orientation Person,Place,Birthday Right Upper WFL Extremity Gross ROM Left Upper Extremity WFL Gross ROM Bed Mobility bed mobility-scooting,bed mobility - supine/sit Assist Level Supervision/Stand by Transfer Training Sit/Stand Transfer Assist Level Contact Guard/Hand Hold Chair Transfer Sit to/from Ambulatory Technique Chair Transfer None Assistive Devices Decrease in Yes Endurance Rehab OT IP prob,goals,plan Problems Date of Evaluation: 10/15/24 OT IP Problems Bed Mobility,Transfers,Balance,Self care,Safety Rehab Potential Rehab Potential Good Equipment Needs Assistive Devices Straight Cane,Standard Walker,Rolling / Wheeled Walker Plan OT intervention Plan Bed Mobility,Transfers,Balance,Self care,Safety, Therapeutic Exercise OT Plan Frequency Daily Duration LOS Discharge Goals Bed Mobility Ability Independent Sit to Stand Chair Supervision/Stand by Transfer Ability Chair Transfer Supervision/Stand by Ability Chair Transfer Sit to/from Ambulatory Technique Chair Transfer Standard Walker,Straight Cane,Rolling Walker Assistive Devices Feeding Ability Assist with Tray Set Up Commode/Toilet Raised Toilet Seat,Grab Bars Transfer Assistive Devices Decrease in No Endurance Discharge Plan OT Discharge Plan At this time, pt presents below baseline and would benefit from skilled acute OT services and interventions to address functional limitations in occupational performance. Pt would benefit from OT rehab placement to further address functional decline in occupational performance. If pt improves and has 24/ 7 care and Assistance, pt can go home with OT services to further address functional limitations in occupational performance. Eval Complexity Eval Charge Codes 24470 - Moderate Complexity PHYSICIAN CERTIFICATION: I certify the specified therapy services for Ancelmo Lima are required, authorized, and reviewed every 30 days.
--- NOTE | 2024-10-15 11:28 | HMH.PTEV ---
Physical Therapy Evaluation Rehab PT IP Evaluation Start: 10/15/24 08:15 Freq: ONCE Status: Active Protocol: Document 10/15/24 11:03 SANDRINE (Rec: 10/15/24 11:28 SANDRINE [id number]) Subjective/History History History Per H&P: This is a 59-year-old male with a past medical history of COPD, recurrent hypercapnic respiratory failure, hypertension, hyperlipidemia, CAD who presents emergency department today with complaints of shortness of breath. He is a longstanding COPD patient who continues to smoke. He initially contacted EMS for help with his oxygen tubing and was saturating in the 70s on his baseline oxygen requirement. He received a DuoNeb en route with little improvement in his oxygenation. He was noted to have oxygen sats of 80% on 5 L nasal cannula. He denied any chest pain. States that shortness of breath has been going on for months but has been particularly worse over the last couple days. Reports increasing his nebulizer usage at home without improvement. Emergency department workup notable for hypercapnic respiratory failure with a CO2 of 129 and a pH of 7.26. Mildly elevated BNP of 240. Respiratory pathogen panel negative. Procalcitonin negative. He was placed on BiPAP and admitted to the hospitalist service Subjective Subjective Pt reports he lives alone in a single-story home. Pt normally uses a cane or RW for IND ambulation. Pt lives next to his brother but not able to have 24/7 assist from brother. New diagnosis of No cancer in past 12 months? [facility] How much help from another person do you currently need... Turning from your None back to your side while in a flat bed without using bedrails? Moving from lying on None back to sitting on the side of a flat bed without using bedrails? Moving to and from a None bed to a chair ( including a wheelchair)? Standing up from a A little chair using your arms? (e.g., wheelchair, bedside chair) Walking in hospital A little room? Climbing 3-5 steps A little with a railing? Mobility Score 21 Mobility Level [facility] Mobility 6 Walk 10 steps or more Mobility Calculator Rehab PT IP Eval Objective Appearance Patient Behavior Appropriate,Cooperative Patient Orientation Person,Place Difficulty following none instructions Speech Pattern Clear Ambulation Patient Able to Yes Ambulate Ambulation Observation IP General Gait Wide Based Gait Pattern Observation Ambulation Distance 8 (feet) Ambulation Assistive None Device Ambulation Ability Contact Guard/Hand Hold Balance Ability to Arise Able, uses arms to help Sitting Balance Steady, safe Standing Balance Steady, wide stance Dynamic Sitting Good Balance Ability Dynamic Standing Good Balance Ability Rehab PT IP prob,goals,plan Problems Date of Evaluation: 10/15/24 PT IP Problems Transfers,Gait,Balance,Safety Rehab Potential Rehab Potential Good Plan PT Intervention Plan Transfers,Gait,Balance,Self care,Safety,Therapeutic Exercise Other Intervention 1-2 times Plan PT Plan Frequency Daily Duration LOS Discharge Goals Bed Transfer Ability Supervision/Stand by Sit to Stand Chair Supervision/Stand by Transfer Ability Discharge Plan PT Discharge Plan Initial physical therapy evaluation performed. Patient presents below baseline at this time in functional mobility, transfers, and strength. PT recommending short-term rehabilitation stay upon d/c from [facility]. Pt may be safe to return home with use of RW if he demo's improved safety/balance with ambulation while at [facility]. Pt would benefit from skilled PT while at [facility] to prevent further functional decline and maximize safety with mobility. Eval Complexity Eval Charge Codes 49897 - Moderate Complexity PHYSICIAN CERTIFICATION: I certify the specified therapy services for Ancelmo Lima are required, authorized, and reviewed every 30 days.
[2024-10-15] MEDS: LEVOFLOXACIN/D5W 750 MG/150 ML 750 MG/150 ML PIGGYBACK 100 MG IV (12:36)
--- NOTE | 2024-10-15 18:38 | EXP.ACUTE.PN ---
Subjective *Date: 10/15/24 *Time: 22:23 Interval history: Patient feeling better today, improved cooperation. Afebrile. On baseline oxygen 2 to 3 L on morning rounds. Wore BiPAP overnight. Denies chest pain. Medical Exam Vital signs and Labs for Last 24 Hours: Vital Signs Temp Pulse Pulse Resp BP Pulse Ox O2 Del Method 10/15/24 18:00 110 H 21 104/72 L 91 L 10/15/24 17:43 103 H 10/15/24 17:43 100 H 10/15/24 17:43 93 L Nasal Cannula 10/15/24 17:00 109 H 15 108/65 L 93 L Nasal Cannula 10/15/24 17:00 Nasal Cannula 10/15/24 16:00 98.5 F 109 H 22 119/63 93 L Nasal Cannula 10/15/24 16:00 110 H 10/15/24 15:00 Nasal Cannula 10/15/24 14:11 115 H 10/15/24 14:11 110 H 10/15/24 14:11 96 Nasal Cannula 10/15/24 14:00 108 H 18 112/81 91 L BiPAP 10/15/24 14:00 111 H 94 L BiPAP 10/15/24 13:00 97 H 114/74 96 BiPAP 10/15/24 12:48 Nasal Cannula 10/15/24 12:00 110 H 10/15/24 12:00 98.6 F 104 H 15 125/88 94 L BiPAP 10/15/24 11:23 107 H 10/15/24 11:23 103 H 10/15/24 11:23 10/15/24 11:00 Nasal Cannula 10/15/24 10:01 98 H 10/15/24 10:01 99 H 10/15/24 10:00 101 H 15 116/77 96 Nasal Cannula 10/15/24 09:00 Nasal Cannula 10/15/24 08:03 112 H 10/15/24 08:03 108 H 10/15/24 08:03 96 Nasal Cannula 10/15/24 08:00 111 H 10/15/24 08:00 106 H 93 L Nasal Cannula 10/15/24 08:00 98.2 F 110 H 21 122/79 94 L Nasal Cannula 10/15/24 06:35 Nasal Cannula 10/15/24 06:10 100 H 10/15/24 06:10 102 H 10/15/24 06:10 94 L Nasal Cannula 10/15/24 06:00 103 H 20 125/82 95 BiPAP 10/15/24 04:57 Nasal Cannula 10/15/24 04:03 105 H 10/15/24 04:03 105 H 10/15/24 04:00 97.7 F 103 H 18 126/92 H 92 L BiPAP 10/15/24 04:00 108 H 10/15/24 03:00 BiPAP 10/15/24 02:05 97 H 10/15/24 02:05 103 H 10/15/24 02:05 10/15/24 02:00 106 H 24 116/88 95 10/15/24 02:00 93 L BiPAP 10/15/24 00:53 BiPAP 10/15/24 00:12 98 H 10/15/24 00:12 105 H 10/15/24 00:00 108 H 10/15/24 00:00 97.8 F 104 H 24 122/87 92 L BiPAP 10/14/24 23:00 BiPAP 10/14/24 22:30 10/14/24 22:24 114 H 10/14/24 22:24 113 H 10/14/24 22:00 111 H 27 H 123/80 91 L Nasal Cannula 10/14/24 21:00 Nasal Cannula 10/14/24 20:21 116 H 10/14/24 20:21 118 H 10/14/24 20:00 119 H 10/14/24 20:00 98.4 F 10/14/24 20:00 122 H 24 124/85 91 L Nasal Cannula 10/14/24 19:55 123 H 91 L Nasal Cannula 10/14/24 19:00 Nasal Cannula O2 Flow Rate FiO2 10/15/24 18:00 10/15/24 17:43 10/15/24 17:43 10/15/24 17:43 3.5 10/15/24 17:00 5 10/15/24 17:00 3 10/15/24 16:00 5 10/15/24 16:00 10/15/24 15:00 3 10/15/24 14:11 10/15/24 14:11 10/15/24 14:11 4 10/15/24 14:00 10/15/24 14:00 10/15/24 13:00 10/15/24 12:48 3 10/15/24 12:00 10/15/24 12:00 10/15/24 11:23 10/15/24 11:23 10/15/24 11:23 40 10/15/24 11:00 3 10/15/24 10:01 10/15/24 10:01 10/15/24 10:00 5 10/15/24 09:00 3 10/15/24 08:03 10/15/24 08:03 10/15/24 08:03 4 10/15/24 08:00 10/15/24 08:00 3 10/15/24 08:00 5 10/15/24 06:35 4 10/15/24 06:10 10/15/24 06:10 10/15/24 06:10 4 10/15/24 06:00 40 10/15/24 04:57 4 10/15/24 04:03 10/15/24 04:03 10/15/24 04:00 40 10/15/24 04:00 10/15/24 03:00 40 10/15/24 02:05 10/15/24 02:05 10/15/24 02:05 40 10/15/24 02:00 10/15/24 02:00 40 10/15/24 00:53 40 10/15/24 00:12 10/15/24 00:12 10/15/24 00:00 10/15/24 00:00 40 10/14/24 23:00 40 10/14/24 22:30 40 10/14/24 22:24 10/14/24 22:24 10/14/24 22:00 4 10/14/24 21:00 4 10/14/24 20:21 10/14/24 20:21 10/14/24 20:00 10/14/24 20:00 10/14/24 20:00 4 10/14/24 19:55 4 10/14/24 19:00 4 Intake and Output 10/15/24 10/15/24 10/15/24 07:59 15:59 23:59 Intake Total 590 / 830 240 / 830 Output Total 650 / 2730 1300 / 2730 780 / 2730 Balance -650 / -1900 -710 / -1900 -540 / 1900 Intake: Intake, Oral Amount 590 / 830 240 / 830 Output: Output, Urine Amount 650 / 2730 1300 / 2730 780 / 2730 Other: Weight 83.325 kg Patient Weight 10/15/24 23:59 Weight 83.325 kg Laboratory Results - last 24 hr 10/15/24 05:12: WBC 6.9, RBC 4.18 L, Hgb 12.2 L, Hct 41.7 L, MCV 99.8 H, MCH 29.2, MCHC 29.3 L, RDW 12.6, Plt Count 177, MPV 10.9 H, Neut % (Auto) 77.3, Lymph % (Auto) 14.5, [place] % (Auto) 6.9, Eos % (Auto) 0.0 L, Baso % (Auto) 0.3, Neut # (Auto) 5.3, Lymph # (Auto) 1.0, [place] # (Auto) 0.5, Eos # (Auto) 0.0, Baso # (Auto) 0.0, Sodium 142, Potassium 4.3, Chloride 87 L, Carbon Dioxide 51 H*, Anion Gap 8.3, BUN 32 H D, Creatinine 1.10 D, Estimated Creat Clear 87, Estimated GFR 69, Est GFR ( Amer) 83 D, Glucose 117 H, Calcium 9.3, Magnesium 2.3, Total Bilirubin 0.6, AST 25, ALT 13, Alkaline Phosphatase 63, Total Protein 6.7, Albumin 3.9, Globulin 2.8, Albumin/Globulin Ratio 1.4 10/15/24 10:10: VBG pH 7.31, VBG pCO2 94.3 H, VBG pO2 80.2 H, VBG HCO3 46.0 H, VBG Total CO2 48.9 H, VBG O2 Saturation 95.1 H, VBG Base Excess 19.7 H, VBG Lactic Acid 2.0 I & O for Labs for Last 24 Hours: Intake & Output 10/12/24 10/13/24 10/14/24 10/15/24 23:59 23:59 23:59 23:59 Intake Total 360 / 360 830 / 830 Output Total 800 / 800 2730 / 2730 Balance -440 / -440 -190 / Weight 81.647 kg 83.007 kg 83.325 kg Microbiology Reports for the Last 24 Hours: Microbiology 10/13/24 22:06 Blood Blood Culture - Preliminary NO GROWTH AFTER 24 HOURS 10/13/24 22:03 Blood Blood Culture - Preliminary NO GROWTH AFTER 24 HOURS 10/14/24 15:26 Sputum - Expectorated Sputum Gram Stain - Final Constitutional: Present mild distress, average body habitus, chronically ill appearing and agitated Head: Present atraumatic and normocephalic Respiratory: Present prolonged expiratory phase and rhonchi; Absent wheezes or crackles Cardiac: Present Reg Rate and Rhythm GI: Present soft and normal bowel sounds; Absent distention or tenderness Extremities: Present normal inspection and full ROM Skin: Present intact; Absent erythema Neuro: Present Grossly Intact, alert, awake and moves all extremities Comment:: Oriented to self and place, poor insight into situation and condition Assessment and Plan *Assessment and plan (1) Acute exacerbation of chronic obstructive pulmonary disease: Status: Acute Category: Medical Code(s): J44.1 - Chronic obstructive pulmonary disease with (acute) exacerbation (2) CAD in [place] artery: Status: Acute Category: Medical Code(s): I25.10 - Atherosclerotic heart disease of [place] coronary artery without angina pectoris (3) Acute respiratory failure with hypoxia and hypercarbia: Status: Acute Category: Medical Code(s): J96.01 - Acute respiratory failure with hypoxia; J96.02 - Acute respiratory failure with hypercapnia Plan 59-year-old male who presented with confusion and weakness. Found to have severe hypercapnic respiratory failure with CO2 greater than 120. Showing improvement while wearing BiPAP. Tolerating antibiotics. More compliant with regimen today. Continues to require patient management. Pulmonology evaluating. Anticipate discharge in the next day or 2. Will continue to wear BiPAP tonight and while asleep. Problems addressed as follows: #Acute respiratory failure with hypoxia and hypercapnia #COPD exacerbation # Suspected community-acquired pneumonia - discussed case with pulmonology, recommend continuing BiPAP. Wearing while asleep. Stable pCO2 of 90 this morning. pH remains above 7.3 on morning VBG. - Continue BiPAP at 22/10 with a rate of 24 and FiO2 of 40%. - Continue DuoNebs every 4 hours and Pulmicort twice daily - Has significant metabolic acid-base disorder with metabolic alkalosis and respiratory acidosis that appears compensated. - Continue Levaquin 750 mg daily if patient allows - Labs showed normal white count of 6.9, hemoglobin 12.2. Kidney function normal with BUN 32 and creatinine 1.1. Bicarb 51. - Repeat CBC, CMP, magnesium ordered for the morning - Continue methylprednisolone 40 mg IV twice daily #Tobacco abuse: nicotine patch Continue home amitriptyline 25 mg night Continue home metoprolol succinate increased to 25 mg daily for blood pressure and heart rate control Full code Regular diet Lovenox 40 mg subcu daily
[2024-10-15] MEDS: AMITRIPTYLINE 25MG TABLET 25 MG PO (20:17)
[2024-10-16] VITALS (21 sets, daily range): BP systolic 99–126; BP diastolic 54–81; PULSE 75–112; RESP 17–24; TEMP 36.4–37.1; O2SAT 90–98; BMI 25.5
[2024-10-16] MEDS: IPRATROPIUM/ALBUTEROL 3 ML NEB IH ×6 (02:04→21:46)
[2024-10-16] MEDS: BUDESONIDE 0.5MG/2ML NEB 0.5 MG IH ×2 (05:55→18:36)
[2024-10-16 06:13] LABS: Albumin Level 3.9 g/dl (3.5-5.0); Chloride 90 mmol/L (98-107); Sodium 138 mmol/L (136-145)
[2024-10-16 06:14] LABS: Potassium 4.6 mmoL/L (3.5-5.1)
[2024-10-16 06:16] LABS: Blood Urea Nitrogen 32 mg/dl (9-20); Creatinine Clearance Estimated 87 mL/min (50-200); Estimated Glomerular Filt Rate 69 ml/min (>60); GFR (African American) 83 ML/MIN (>60)
[2024-10-16 06:17] LABS: Alanine Aminotransferase 12 U/L (12-78); Albumin/Globulin Ratio 1.4 (1.1-1.8); Alkaline Phosphatase 66 U/L (38-126); Aspartate Amino Transferase 18 U/L (17-59); Bilirubin,Total 0.6 mg/dl (0.2-1.3); Calcium 9.3 mg/dl (8.4-10.2); Globulin 2.8 g/dL (1.3-3.2); Glucose 125 mg/dl (74-100); Total Protein,Serum 6.7 g/dl (6.3-8.2)
--- NOTE | 2024-10-16 06:23 | PC.NURSE ---
Pt has done well throughout shift. No complaints voiced to staff. Tolerating 3 L nc well with O2 >90% while awake. Pt wore bipap throughout night while asleep, tolerating well. Call light within reach.
[2024-10-16 06:25] LABS: Anion Gap 11.6 mEq/L (5-15); Carbon Dioxide 41 mmol/L (22.0-30.0)
[2024-10-16] MEDS: METHYLPREDNISOLONE SOD SUCC 40MG VIAL 40 MG IV ×2 (08:37→20:04)
[2024-10-16] MEDS: METOPROLOL SUCCINATE XL 25MG TABLET 25 MG PO (08:37)
[2024-10-16] MEDS: acetaZOLAMIDE 250 MG TABLET PO (08:37)
[2024-10-16] MEDS: ENOXAPARIN 40MG/0.4ML SYRINGE 40 MG SUBCUT (08:37)
--- NOTE | 2024-10-16 09:33 | EXP.PULM.PN ---
Subjective *Date: 10/16/24 *Time: 12:20 Interval history: No acute respiratory events overnight. Patient denies any new respiratory complaints. Admits improving symptoms. Would like to be discharged home Pulmonology Exam Inpatient Vital signs and Labs for Last 24 Hours: Temp Pulse Resp BP Pulse Ox O2 Del Method O2 Flow Rate 97.9 F 94 H 24 126/81 95 Nasal Cannula 3 10/16/24 08:00 10/16/24 08:02 10/16/24 08:00 10/16/24 08:00 10/16/24 08:00 10/16/24 08:00 10/16/24 08:00 FiO2 40 10/16/24 05:55 Laboratory Results - last 24 hr 10/15/24 10:10: VBG pH 7.31, VBG pCO2 94.3 H, VBG pO2 80.2 H, VBG HCO3 46.0 H, VBG Total CO2 48.9 H, VBG O2 Saturation 95.1 H, VBG Base Excess 19.7 H, VBG Lactic Acid 2.0 10/16/24 05:03: Sodium 138, Potassium 4.6, Chloride 90 L, Carbon Dioxide 41 H*, Anion Gap 11.6, BUN 32 H, Creatinine 1.10, Estimated Creat Clear 87, Estimated GFR 69, Est GFR ( Amer) 83, Glucose 125 H, Calcium 9.3, Total Bilirubin 0.6, AST 18 D, ALT 12, Alkaline Phosphatase 66, Total Protein 6.7, Albumin 3.9, Globulin 2.8, Albumin/Globulin Ratio 1.4 Temp Pulse Resp BP Pulse Ox O2 Del Method O2 Flow Rate 99.4 F 109 H 33 H 116/77 97 Nasal Cannula 4 10/14/24 08:00 10/14/24 09:12 10/14/24 08:00 10/14/24 08:00 10/14/24 08:00 10/14/24 08:00 10/14/24 08:00 FiO2 40 10/14/24 09:12 Laboratory Results - last 24 hr 10/13/24 21:25: WBC 9.8, RBC 4.91, Hgb 14.6, Hct 49.8, MCV 101.4 H, MCH 29.7, MCHC 29.3 L, RDW 12.4, Plt Count 197, MPV 10.6 H, Neut % (Auto) 77.9, Lymph % (Auto) 11.2, [place] % (Auto) 8.2, Eos % (Auto) 1.1, Baso % (Auto) 0.4, Neut # (Auto) 7.6, Lymph # (Auto) 1.1, [place] # (Auto) 0.8, Eos # (Auto) 0.1, Baso # (Auto) 0.0, PT 11.4, INR 1.03, APTT 26.3, Sodium 145, Potassium 4.6, Chloride 85 L, Carbon Dioxide 53 H*, Anion Gap 11.6, BUN 22 H, Creatinine 0.80, Estimated Creat Clear 118, Estimated GFR 100, Est GFR ( Amer) 121, Glucose 114 H, Calcium 9.7, Total Bilirubin 1.1, AST 23, ALT 15, Alkaline Phosphatase 85, Troponin I < 0.01, NT-Pro-B Natriuret Pep 240 H, Total Protein 7.9 D, Albumin 4.2, Globulin 3.7 H, Albumin/Globulin Ratio 1.1, HCV Ab [place] w/Rflx PCR Qn Negative, HIV Ag/Ab Combo Qual Negative 10/13/24 21:34: VBG pH 7.26 L, VBG pCO2 129.3 H, VBG pO2 41.3 H, VBG HCO3 56.1 H, VBG Total CO2 60.0 H, VBG O2 Saturation 77.9 H, VBG Base Excess 28.9 H, VBG Lactic Acid 2.5 H 10/13/24 21:40: Chlamy pneumoniae PCR Not detected, Adenovirus (PCR) Not detected, B. pertussis DNA (PCR) Not detected, Coronavirus OC43 (PCR) Not detected, Coronavirus HKU1 (PCR) Not detected, Coronavirus 229E (PCR) Not detected, SARS-CoV-2 (PCR) Not detected, Coronavirus NL63 (PCR) Not detected, Human Metapneumovir PCR Not detected, Influenza A (H1) PCR Not detected, Influ A (H1N1/09) PCR Not detected, Influenza A (H3) PCR Not detected, Influenza Type A (PCR) Not detected, Influenza Type B (PCR) Not detected, M. pneumoniae (PCR) Not detected, Parainfluenza 1 (PCR) Not detected, Parainfluenza 2 (PCR) Not detected, Parainfluenza 3 (PCR) Not detected, Parainfluenza 4 (PCR) Not detected, RSV (PCR) Not detected, Entero/Rhino (PCR) Not detected 10/13/24 23:35: VBG pH 7.26 L, VBG pCO2 123.0 H, VBG pO2 61.2 H, VBG HCO3 53.5 H, VBG Total CO2 57.2 H, VBG O2 Saturation 90.8 H, VBG Base Excess 26.3 H, VBG Lactic Acid 1.6 10/14/24 01:27: Sodium 140, Potassium 4.9, Chloride 86 L, Carbon Dioxide 54 H*, Anion Gap 4.9 L, BUN 21 H, Creatinine 0.80, Estimated Creat Clear 120, Estimated GFR 100, Est GFR ( Amer) 121, Glucose 126 H, Lactate 1.3, Calcium 9.9, Troponin I 0.02 10/14/24 04:15: WBC 6.7 D, RBC 4.26 L, Hgb 12.7 L D, Hct 43.4, MCV 101.9 H, MCH 29.3, MCHC 28.8 L, RDW 12.6, Plt Count 157, MPV 10.6 H, Neut % (Auto) 91.5 H, Lymph % (Auto) 6.4 L, [place] % (Auto) 0.9 L, Eos % (Auto) 0.0 L, Baso % (Auto) 0.3, Neut # (Auto) 6.1, Lymph # (Auto) 0.4 L, [place] # (Auto) 0.1, Eos # (Auto) 0.0, Baso # (Auto) 0.0, Total Counted 100, Neutrophils % (Manual) 95 H, Lymphocytes % (Manual) 5 L, Platelet Estimate Normal, RBC Morphology Normal, Phosphorus 3.2, Troponin I 0.01, Triglycerides 60, Cholesterol 153, LDL Cholesterol Direct 83.36 L, VLDL Cholesterol 12, HDL Cholesterol 41, Cholesterol/HDL Ratio 3.7 H 10/14/24 06:00: VBG pH 7.30 L, VBG pCO2 96.6 H, VBG pO2 40.9 H, VBG HCO3 46.9 H, VBG Total CO2 49.9 H, VBG O2 Saturation 77.7 H, VBG Base Excess 20.5 H, VBG Lactic Acid 1.1 10/14/24 08:15: Urine Color Yellow, Urine Appearance Clear, Urine pH 6.5, Ur Specific [place] 1.025, Urine Protein Negative, Urine Glucose (UA) Negative, Urine Ketones Negative, Urine Blood Negative, Urine Nitrate Negative, Urine Bilirubin Negative, Urine Urobilinogen 0.2, Ur Leukocyte Esterase Negative, Urine RBC 5-10, Urine WBC Occasional, Ur Squamous Epith Cells Occasional, Urine Bacteria None I & O for Labs for Last 24 Hours: Intake & Output 10/13/24 10/14/24 10/15/24 10/16/24 23:59 23:59 23:59 23:59 Intake Total 360 / 360 830 / 830 335 / 335 Output Total 800 / 800 3180 / 3180 900 / 900 Balance -440 / -440 -2350 / -2350 -565 / -565 Weight 180 lb 183 lb 183 lb 11.2 oz 182 lb 11.2 oz Intake & Output 10/11/24 10/12/24 10/13/24 10/14/24 23:59 23:59 23:59 23:59 Intake Total 0 / 0 Output Total 300 / 300 Balance -300 / -300 Weight 180 lb 183 lb Microbiology Reports for the Last 24 Hours: Microbiology 10/13/24 22:06 Blood Blood Culture - Preliminary NO GROWTH AFTER 48 HOURS 10/13/24 22:03 Blood Blood Culture - Preliminary NO GROWTH AFTER 48 HOURS Constitutional: Present severe distress Head: Present normocephalic and atraumatic ENT: Present normal exam, normal oropharynx and mucous membranes moist Neck: Present normal inspection and full ROM Respiratory: Present prolonged expiratory phase, respiratory distress, rhonchi, wheezes and able to speak in complete sentences Cardiac: Present S1/S2, Tachycardia and radial pulses present GI: Present soft and distention; Absent tenderness or guarding Skin: Present intact; Absent cyanosis or jaundice Neuro: Present alert, awake and oriented x 3 Extremities: Present normal inspection; Absent clubbing or cyanosis Psychiatric: Present normal affect and cooperative Assessment and Plan *Assessment and plan (1) Acute exacerbation of chronic obstructive pulmonary disease: Status: Acute Category: Medical Code(s): J44.1 - Chronic obstructive pulmonary disease with (acute) exacerbation (2) Acute on chronic respiratory failure with hypoxia and hypercapnia: Status: Acute Category: Medical Code(s): J96.21 - Acute and chronic respiratory failure with hypoxia; J96.22 - Acute and chronic respiratory failure with hypercapnia Plan Mr. Lima is a 59-year-old male greater than [id number] smoking history COPD multiple pulmonary nodules presented today with worsening respiratory distress and pulmonary was called for further evaluation and management. Presented with complaint of worsening shortness of breath respiratory distress and pulmonary was called for further evaluation and management. Afebrile. Hemodynamically stable. No evidence of leukocytosis. Comprehensive respiratory viral PCR panel negative. Blood gas upon admission hypercarbic respiratory failure the pH is 7.26 and pCO2 129.3 Chest x-ray upon admission no dense consolidative changes noted. Increased interstitial markings. Currently being managed for community-acquired pneumonia and COPD exacerbation with ceftriaxone, azithromycin along with DuoNebs every 4 hours along with Pulmicort every 12 scheduled. Decreased breath sounds bilateral On initial examination severe respiratory distress. Alert and oriented x 0. Interval update: Afebrile. Hemodynamically stable. Improving mentation. Continue to be needing noninvasive ventilator therapy for hypercarbic respiratory failure, improving but not normalized Plan: Nocturnal oximetry testing today at baseline oxygen supplementation at 4l nc to facilitate qualification for noninvasive ventilatory therapy upon discharge for recurrent hypercarbic respiratory failure from COPD Continue noninvasive ventilator therapy BiPAP at 22/10 with a rate of 24 and FiO2 of 40% while asleep DuoNebs every 4 hours along with Pulmicort every 12 scheduled Continue methylprednisolone 40 mg IV Q12 hrs Continue levofloxacin 750 mg IV daily X 5 DAYS # Thank you for involving pulmonary in this patient care. Will continue to follow-up
[2024-10-16 09:55] LABS: Lactate Venous 1.7 mmol/L (0.4-2.0); VBG Base Excess 12.5 mmol/L (-2.4-2.3); VBG HCO3 38.6 mmol/L (23-30); VBG Oxygen Saturation 92.8 % (50-70); VBG PCO2 77.8 mmol/L (35-51); VBG PH 7.31 mmol/L (7.31-7.41); VBG PO2 67.3 mmol/L (28-40)
[2024-10-16] MEDS: levoFLOXacin 750 MG TABLET PO (11:17)
--- NOTE | 2024-10-16 13:04 | SW/DCPLANNER ---
Addendum entered by Kusum Freeman 10/19/24 12:21: I went back in today and spoke with patient on coming back here and to do outpatient therapy. Patient stated that he doesnt think he will be able to get back into his home once he gets out of the house. Harris Enriquez Original Note: Spoke with patient regarding once he is medically stable and ready for discharge if he would be interested in outpatient therapy. Patient stated that he has a hard time walking i even stated to patient that with his insurance that we could [facility] and [facility] would be able to take patient to and from appointment. Patient's insurance home health agencies dont accept. Patient stated that he will have to think about that. Harris Enriquez
--- NOTE | 2024-10-16 14:46 | P.PN_ITS ---
Subjective *Date: 10/16/24 *Time: 15:40 Interval history: Feeling better today. Showing improvement. On baseline oxygen of 3 L when awake. Wearing BiPAP at night. Will necessitate BiPAP at discharge. Denies fever. Still having cough and mild wheeze. Medical Exam Vital signs and Labs for Last 24 Hours: Vital Signs Temp Pulse Pulse Resp BP Pulse Ox O2 Del Method 10/16/24 13:54 106 H 10/16/24 13:54 108 H 10/16/24 13:54 92 L Nasal Cannula 10/16/24 13:00 Nasal Cannula 10/16/24 12:00 98 H 10/16/24 12:00 97.6 F 93 H 24 117/79 92 L Nasal Cannula 10/16/24 11:00 Nasal Cannula 10/16/24 10:27 102 H 10/16/24 10:27 90 10/16/24 10:27 90 L Nasal Cannula 10/16/24 10:00 98 H 20 114/67 92 L Nasal Cannula 10/16/24 09:00 Nasal Cannula 10/16/24 08:02 94 H 10/16/24 08:00 95 10/16/24 08:00 97.9 F 94 H 24 126/81 93 L Nasal Cannula 10/16/24 06:48 BiPAP 10/16/24 06:00 84 24 98 10/16/24 06:00 109/72 L 10/16/24 05:55 86 10/16/24 05:55 75 10/16/24 05:55 10/16/24 05:00 BiPAP 10/16/24 04:13 86 10/16/24 04:00 97.9 F 88 24 112/78 95 BiPAP 10/16/24 03:00 BiPAP 10/16/24 02:04 97 H 10/16/24 02:04 95 H 10/16/24 02:00 10/16/24 02:00 94 H 24 99/70 L 96 BiPAP 10/16/24 01:47 102 H 93 L BiPAP 10/16/24 01:00 BiPAP 10/16/24 00:08 109 H 10/16/24 00:01 97.8 F 92 H 24 103/54 L 95 BiPAP 10/15/24 22:58 10/15/24 22:31 Nasal Cannula 10/15/24 22:09 100 H 10/15/24 22:09 97 H 10/15/24 22:00 100 H 28 H 117/75 94 L Nasal Cannula 10/15/24 20:44 Nasal Cannula 10/15/24 20:01 98.4 F 108 H 18 116/74 93 L Nasal Cannula 10/15/24 20:00 95 H 10/15/24 20:00 106 H 92 L Nasal Cannula 10/15/24 18:49 Nasal Cannula 10/15/24 18:00 110 H 21 104/72 L 91 L 10/15/24 17:43 103 H 10/15/24 17:43 100 H 10/15/24 17:43 93 L Nasal Cannula 10/15/24 17:00 109 H 15 108/65 L 93 L Nasal Cannula 10/15/24 17:00 Nasal Cannula 10/15/24 16:00 98.5 F 109 H 22 119/63 93 L Nasal Cannula 10/15/24 16:00 110 H 10/15/24 15:00 Nasal Cannula O2 Flow Rate FiO2 10/16/24 13:54 10/16/24 13:54 10/16/24 13:54 4 10/16/24 13:00 4 10/16/24 12:00 10/16/24 12:00 3 10/16/24 11:00 3 10/16/24 10:27 10/16/24 10:27 10/16/24 10:27 3 10/16/24 10:00 3 10/16/24 09:00 3 10/16/24 08:02 10/16/24 08:00 10/16/24 08:00 3 10/16/24 06:48 10/16/24 06:00 10/16/24 06:00 10/16/24 05:55 10/16/24 05:55 10/16/24 05:55 40 10/16/24 05:00 10/16/24 04:13 10/16/24 04:00 40 10/16/24 03:00 10/16/24 02:04 10/16/24 02:04 10/16/24 02:00 40 10/16/24 02:00 40 10/16/24 01:47 10/16/24 01:00 10/16/24 00:08 10/16/24 00:01 40 10/15/24 22:58 40 10/15/24 22:31 3 10/15/24 22:09 10/15/24 22:09 10/15/24 22:00 3 10/15/24 20:44 3 10/15/24 20:01 3 10/15/24 20:00 10/15/24 20:00 3 10/15/24 18:49 3 10/15/24 18:00 10/15/24 17:43 10/15/24 17:43 10/15/24 17:43 3.5 10/15/24 17:00 5 10/15/24 17:00 3 10/15/24 16:00 5 10/15/24 16:00 10/15/24 15:00 3 Intake and Output 10/15/24 10/16/24 10/16/24 23:59 07:59 15:59 Intake Total 240 / 830 440 / 440 Output Total 1230 / 3180 900 / 1200 300 / 1200 Balance -990 / -2350 -900 / -760 140 / -760 Intake: Intake, Oral Amount 240 / 830 440 / 440 Output: Output, Urine Amount 1230 / 3180 900 / 1200 300 / 1200 Other: Number of Unmeasured Voids 0 0 Weight 82.871 kg 82.8 kg Patient Weight 10/16/24 23:59 Weight 82.8 kg Laboratory Results - last 24 hr 10/16/24 05:03: Sodium 138, Potassium 4.6, Chloride 90 L, Carbon Dioxide 41 H*, Anion Gap 11.6, BUN 32 H, Creatinine 1.10, Estimated Creat Clear 87, Estimated GFR 69, Est GFR ( Amer) 83, Glucose 125 H, Calcium 9.3, Total Bilirubin 0.6, AST 18 D, ALT 12, Alkaline Phosphatase 66, Total Protein 6.7, Albumin 3.9, Globulin 2.8, Albumin/Globulin Ratio 1.4 10/16/24 09:33: VBG pH 7.31, VBG pCO2 77.8 H, VBG pO2 67.3 H, VBG HCO3 38.6 H, VBG Total CO2 41.0 H, VBG O2 Saturation 92.8 H, VBG Base Excess 12.5 H, VBG Lactic Acid 1.7 I & O for Labs for Last 24 Hours: Intake & Output 10/13/24 10/14/24 10/15/24 10/16/24 23:59 23:59 23:59 23:59 Intake Total 360 / 360 830 / 830 440 / 440 Output Total 800 / 800 3180 / 3180 1200 / 1200 Balance -440 / -440 -2350 / -2350 -760 / -760 Weight 81.647 kg 83.007 kg 83.325 kg 82.8 kg Microbiology Reports for the Last 24 Hours: Microbiology 10/14/24 15:26 Sputum - Expectorated Sputum Gram Stain - Final 10/14/24 15:26 Sputum - Expectorated Sputum Sputum Culture - Preliminary 10/14/24 19:50 Anus CRE Surveillance Culture - Final Negative 10/13/24 22:06 Blood Blood Culture - Preliminary NO GROWTH AFTER 48 HOURS 10/13/24 22:03 Blood Blood Culture - Preliminary NO GROWTH AFTER 48 HOURS Constitutional: Present no acute distress, average body habitus, chronically ill appearing and agitated Head: Present atraumatic and normocephalic Respiratory: Present prolonged expiratory phase, rhonchi and wheezes (end expiratory); Absent crackles Cardiac: Present Reg Rate and Rhythm GI: Present soft and normal bowel sounds; Absent distention or tenderness Extremities: Present normal inspection and full ROM Skin: Present intact; Absent erythema Neuro: Present Grossly Intact, alert, awake and moves all extremities Comment:: Oriented to self and place, poor insight into situation and condition Assessment and Plan *Assessment and plan (1) Acute exacerbation of chronic obstructive pulmonary disease: Status: Acute Category: Medical Code(s): J44.1 - Chronic obstructive pulmonary disease with (acute) exacerbation (2) CAD in [place] artery: Status: Acute Category: Medical Code(s): I25.10 - Atherosclerotic heart disease of [place] coronary artery without angina pectoris (3) Acute respiratory failure with hypoxia and hypercarbia: Status: Acute Category: Medical Code(s): J96.01 - Acute respiratory failure with hypoxia; J96.02 - Acute respiratory failure with hypercapnia Plan 59-year-old male who presented with confusion and weakness. Found to have severe hypercapnic respiratory failure with CO2 greater than 120. Showing improvement while wearing BiPAP. Tolerating antibiotics. More compliant with regimen today. Continues to require patient management. Pulmonology evaluating. Anticipate discharge in the next day or 2. Will continue to wear BiPAP tonight and while asleep. Problems addressed as follows: #Acute respiratory failure with hypoxia and hypercapnia #COPD exacerbation # Suspected community-acquired pneumonia - Continue BiPAP at 22/10 with a rate of 24 and FiO2 of 40%. - Continue DuoNebs every 4 hours and Pulmicort twice daily - Has significant metabolic acid-base disorder with metabolic alkalosis and respiratory acidosis that appears compensated. Has received acetazolamide to help metabolic alkalosis component, improving. Will discontinue. -Blood gas this morning with pH of 7.31, PCO2 of 77. - Continue Levaquin 750 mg daily if patient allows -Lab continue to improve, BUN 32, creatinine 1.1, bicarb down to 41. - Repeat CBC, CMP, magnesium ordered for the morning - Continue methylprednisolone 40 mg IV twice daily - Discussed case with social work and pulmonology, will need nocturnal pulse ox to evaluate for home BiPAP. Will obtain this evening. Anticipate patient will need BiPAP at 22/10 at discharge. Continue steroids and antibiotics as ordered. - Continue oxygen at 4 L overnight with ABG in the morning ordered #Tobacco abuse: nicotine patch Continue home amitriptyline 25 mg night Continue home metoprolol succinate increased to 25 mg daily for blood pressure and heart rate control Full code Regular diet Lovenox 40 mg subcu daily
--- NOTE | 2024-10-16 14:50 | CARE MANAGER ---
Patient is planned for over night pulse ox tonight with Abg in the morning. I will follow up with Juan Antonio on Saturday for bipap if patient qualifies. Patient is planned for discharge home tomorrow and Dr. Ng has approved the plan.
--- NOTE | 2024-10-16 15:23 | PC.NURSE ---
patient has done well. on 4l of o2 at this time. rigns out as needed. uses urinal. noted cough. independent in bed. some complaints of chronic pain noted. encouraged to ring out as needed.
--- NOTE | 2024-10-16 16:37 | PC.NURSE ---
patient left the ICU via wheelchair @1387 to [place] room 219
--- NOTE | 2024-10-16 16:45 | PC.NURSE ---
Pt arrived to unit @ this time
--- NOTE | 2024-10-16 16:48 | PC.NURSE ---
Pt. on the floor from ICU.
[2024-10-16] MEDS: AMITRIPTYLINE 25MG TABLET 25 MG PO (20:04)
[2024-10-16] MEDS: SODIUM CHLORIDE 0.9% 10ML FLUSH SYRINGE 10 ML IV ×2 (20:04→20:07)
[2024-10-17] VITALS (16 sets, daily range): BP systolic 99–152; BP diastolic 40–72; PULSE 70–110; RESP 18–24; TEMP 36.5–36.7; O2SAT 92–98; BMI 24.8
[2024-10-17] MEDS: IPRATROPIUM/ALBUTEROL 3 ML NEB IH ×6 (02:20→21:59)
--- NOTE | 2024-10-17 04:10 | PC.NURSE ---
at 0400 this SRNA emptied pt trash in room and pt asked me to wait another hour on vitals, I informed RN Nel of this. Will get vitals at 0500
--- NOTE | 2024-10-17 05:02 | PC.NURSE ---
Fresh ice water given by this srna at [id number]
--- NOTE | 2024-10-17 05:45 | PC.NURSE ---
Pt. is alert and orientated x 4. zpt. is on 4 liters of Oxygen per N/C. Pt. doing well on 4 liters. oxygen sats 94-99%. Pt. on special pulse ox study to get approved for home BiPAP machine. Pt. has had no c/o's this shift. Pt. has slept well. Personal items and call stevens in reach. safety measures in place.
[2024-10-17] MEDS: BUDESONIDE 0.5MG/2ML NEB 0.5 MG IH ×2 (06:47→18:18)
[2024-10-17 06:53] LABS: ABG Base Excess 8.1 mmol/L (-2.4-2.3); ABG HCO3 35.4 mmhg (22.0-26.0); ABG Oxygen Saturation 95 % (90-100); ABG PH 7.25 mmol/L (7.35-7.45); ABG PO2 81.3 mmhg (80-100); ABG TCO2 37.9 mmhg (23-27)
[2024-10-17 06:55] LABS: Allen's Test Acceptable; Source Left Radial
[2024-10-17 06:56] LABS: ABG PCO2 82.5 mmhg (35.0-45.0)
[2024-10-17 07:50] LABS: Hematocrit 40.7 % (42.0-52.0); Hemoglobin 12.6 g/dL (14.1-18.0); Immature Granulocytes # 0.04 10^3uL; Immature Granulocytes % 0.7 %; Lymphocytes # 0.8 K/mm3 (0.7-4.5); Lymphocytes % 13.8 % (10-50); Mean Corpuscular Volume 96.9 fl (80-94); Mean Platelet Volume 10.9 fl (7.4-10.4); Monocytes # 0.4 K/mm3 (0.1-1.0); Monocytes % 6.6 % (1.7-9.3); Neutrophils # 4.7 K/mm3 (1.8-7.8); Neutrophils % 78.9 % (37.0-80.0); Nucleated Red Blood Cells # 0 10^3/uL; Nucleated Red Blood Cells % 0 %; Platelet Count 171 K/mm3 (142-424); Red Cell Distribution Width 12.4 % (11.5-17.5); Red Cell Distribution Width-SD 44.2 fL
[2024-10-17 08:02] LABS: Chloride 94 mmol/L (98-107)
[2024-10-17 08:03] LABS: Albumin Level 3.9 g/dl (3.5-5.0); Potassium 4.4 mmoL/L (3.5-5.1); Sodium 139 mmol/L (136-145)
[2024-10-17 08:05] LABS: Blood Urea Nitrogen 25 mg/dl (9-20); Creatinine Clearance Estimated 103 mL/min (50-200); Estimated Glomerular Filt Rate 87 ml/min (>60); GFR (African American) 105 ML/MIN (>60)
[2024-10-17 08:06] LABS: Alanine Aminotransferase 12 U/L (12-78); Albumin/Globulin Ratio 1.5 (1.1-1.8); Alkaline Phosphatase 57 U/L (38-126); Anion Gap 10.4 mEq/L (5-15); Aspartate Amino Transferase 21 U/L (17-59); Bilirubin,Total 0.4 mg/dl (0.2-1.3); Calcium 9.1 mg/dl (8.4-10.2); Carbon Dioxide 39 mmol/L (22.0-30.0); Globulin 2.6 g/dL (1.3-3.2); Glucose 99 mg/dl (74-100); Total Protein,Serum 6.5 g/dl (6.3-8.2)
[2024-10-17 08:51] LABS: Magnesium 2.1 mg/dl (1.6-2.3)
[2024-10-17] MEDS: ENOXAPARIN 40MG/0.4ML SYRINGE 40 MG SUBCUT (08:56)
[2024-10-17] MEDS: METHYLPREDNISOLONE SOD SUCC 40MG VIAL 40 MG IV ×2 (08:56→20:22)
[2024-10-17] MEDS: METOPROLOL SUCCINATE XL 25MG TABLET 25 MG PO (12:10)
[2024-10-17] MEDS: levoFLOXacin 750 MG TABLET PO (12:11)
[2024-10-17 15:29] LABS: VBG HCO3 32.7 mmol/L (23-30); VBG Oxygen Saturation 99.5 % (50-70); VBG PCO2 46.3 mmol/L (35-51); VBG PH 7.47 mmol/L (7.31-7.41); VBG PO2 183.6 mmol/L (28-40); VBG Total CO2 34.1 mmol/L (23-27)
--- NOTE | 2024-10-17 19:31 | EXP.ACUTE.PN ---
Subjective *Date: 10/17/24 *Time: 21:18 Interval history: Patient went without BiPAP overnight. Remains on 4 L nasal cannula (baseline oxygen). Morning gas showed increased pCO2. Patient alert, no change in mentation. No nausea or vomiting. Placed back on BiPAP this morning. Medical Exam Vital signs and Labs for Last 24 Hours: Vital Signs Temp Pulse Pulse Resp BP Pulse Ox O2 Del Method 10/17/24 18:50 Nasal Cannula, BiPAP 10/17/24 18:50 89 10/17/24 18:49 81 10/17/24 18:38 Nasal Cannula 10/17/24 17:00 Nasal Cannula 10/17/24 16:00 98.1 F 99 H 20 152/66 H 95 Nasal Cannula 10/17/24 16:00 100 H 10/17/24 15:00 Nasal Cannula 10/17/24 14:50 84 10/17/24 14:50 86 10/17/24 14:49 10/17/24 12:40 BiPAP 10/17/24 12:00 70 10/17/24 12:00 98.0 F 74 18 115/72 97 BiPAP 10/17/24 11:00 BiPAP 10/17/24 10:17 78 10/17/24 10:17 85 10/17/24 10:17 10/17/24 10:17 98 BiPAP 10/17/24 09:00 BiPAP 10/17/24 08:00 90 10/17/24 08:00 BiPAP 10/17/24 07:59 97.7 F 89 20 99/58 L 92 L BiPAP 10/17/24 07:13 10/17/24 07:01 80 10/17/24 07:01 79 10/17/24 07:01 97 Nasal Cannula 10/17/24 07:00 BiPAP 10/17/24 05:00 Nasal Cannula 10/17/24 04:00 84 10/17/24 03:00 Room Air 10/17/24 02:21 88 10/17/24 02:21 86 10/17/24 01:00 Room Air 10/17/24 00:00 84 10/16/24 23:00 Nasal Cannula 10/16/24 21:46 97 H 10/16/24 21:46 96 H 10/16/24 21:02 96 H 10/16/24 21:00 Nasal Cannula 10/16/24 20:02 98.2 F 112 H 17 108/68 L 94 L 10/16/24 20:00 92 L Nasal Cannula O2 Flow Rate FiO2 10/17/24 18:50 4 10/17/24 18:50 10/17/24 18:49 10/17/24 18:38 4 10/17/24 17:00 4 10/17/24 16:00 4 10/17/24 16:00 10/17/24 15:00 4 10/17/24 14:50 10/17/24 14:50 10/17/24 14:49 40 10/17/24 12:40 10/17/24 12:00 10/17/24 12:00 10/17/24 11:00 10/17/24 10:17 10/17/24 10:17 10/17/24 10:17 40 10/17/24 10:17 40 10/17/24 09:00 10/17/24 08:00 10/17/24 08:00 10/17/24 07:59 10/17/24 07:13 40 10/17/24 07:01 10/17/24 07:01 10/17/24 07:01 4 10/17/24 07:00 10/17/24 05:00 4 10/17/24 04:00 10/17/24 03:00 10/17/24 02:21 10/17/24 02:21 10/17/24 01:00 10/17/24 00:00 10/16/24 23:00 4 10/16/24 21:46 10/16/24 21:46 10/16/24 21:02 10/16/24 21:00 4 10/16/24 20:02 10/16/24 20:00 4 Intake and Output 10/17/24 10/17/24 10/17/24 07:59 15:59 23:59 Intake Total 240 / 630 390 / 630 Output Total 1400 / 1600 200 / 1600 Balance -1160 / -970 190 / -970 Intake: Intake, Oral Amount 240 / 630 390 / 630 Output: Output, Urine Amount 1400 / 1600 200 / 1600 Other: Number of Unmeasured Voids 0 0 Weight 80.513 kg Patient Weight 10/17/24 23:59 Weight 80.513 kg Laboratory Results - last hr 10/17/24 06:00: Specimen Source Left radial, O2 % 4lpm nc, ABG pH 7.25 L, ABG pCO2 82.5 H, ABG pO2 81.3, ABG HCO3 35.4 H, ABG Total CO2 37.9 H, ABG O2 Saturation 95, ABG Base Excess 8.1 H, Gerard Test Acceptable 10/17/24 06:25: WBC 6.0, RBC 4.20 L, Hgb 12.6 L, Hct 40.7 L, MCV 96.9 H, MCH 30.0, MCHC 31.0 L, RDW 12.4, Plt Count 171, MPV 10.9 H, Neut % (Auto) 78.9, Lymph % (Auto) 13.8, [place] % (Auto) 6.6, Eos % (Auto) 0.0 L, Baso % (Auto) 0.0 L, Neut # (Auto) 4.7, Lymph # (Auto) 0.8, [place] # (Auto) 0.4, Eos # (Auto) 0.0, Baso # (Auto) 0.0, Sodium 139, Potassium 4.4, Chloride 94 L, Carbon Dioxide 39 H, Anion Gap 10.4, BUN 25 H, Creatinine 0.90, Estimated Creat Clear 103, Estimated GFR 87, Est GFR ( Amer) 105 D, Glucose 99, Calcium 9.1, Magnesium 2.1, Total Bilirubin 0.4, AST 21, ALT 12, Alkaline Phosphatase 57, Total Protein 6.5, Albumin 3.9, Globulin 2.6, Albumin/Globulin Ratio 1.5 10/17/24 15:10: VBG pH 7.47 H, VBG pCO2 46.3, VBG pO2 183.6 H, VBG HCO3 32.7 H, VBG Total CO2 34.1 H, VBG O2 Saturation 99.5 H, VBG Base Excess 9.0 H, VBG Lactic Acid 2.0 I & O for Labs for Last 24 Hours: Intake & Output 10/14/24 10/15/24 10/16/24 10/17/24 23:59 23:59 23:59 23:59 Intake Total 360 / 360 830 / 830 640 / 880 630 / 630 Output Total 800 / 800 3180 / 3180 2225 / 2575 1600 / 1600 Balance -440 / -440 -2350 / -2350 -1585 / -1695 -970 / -970 Weight 83.007 kg 83.325 kg 82.8 kg 80.513 kg Microbiology Reports for the Last 24 Hours: Microbiology 10/14/24 15:26 Sputum - Expectorated Sputum Gram Stain - Final 10/14/24 15:26 Sputum - Expectorated Sputum Sputum Culture - Preliminary Gram Negative Rods Gram Negative Rods#2 Constitutional: Present no acute distress, average body habitus, chronically ill appearing and agitated Head: Present atraumatic and normocephalic Respiratory: Present prolonged expiratory phase, rhonchi and wheezes (end expiratory); Absent crackles Cardiac: Present Reg Rate and Rhythm GI: Present soft and normal bowel sounds; Absent distention or tenderness Extremities: Present normal inspection and full ROM Skin: Present intact; Absent erythema Neuro: Present Grossly Intact, alert, awake and moves all extremities Comment:: Oriented to self and place, poor insight into situation and condition Assessment and Plan *Assessment and plan (1) Acute exacerbation of chronic obstructive pulmonary disease: Status: Acute Category: Medical Code(s): J44.1 - Chronic obstructive pulmonary disease with (acute) exacerbation (2) CAD in [place] artery: Status: Acute Category: Medical Code(s): I25.10 - Atherosclerotic heart disease of [place] coronary artery without angina pectoris (3) Acute respiratory failure with hypoxia and hypercarbia: Status: Acute Category: Medical Code(s): J96.01 - Acute respiratory failure with hypoxia; J96.02 - Acute respiratory failure with hypercapnia Plan 59-year-old male who presented with confusion and weakness. Found to have severe hypercapnic respiratory failure with CO2 greater than 120. Showing improvement while wearing BiPAP. Tolerating antibiotics. More compliant with regimen today. Continues to require patient management. Pulmonology assisting with care. Failed trial of BiPAP overnight. Hypercapnia worsens. pH dropped to 7.25 with increase in pCO2 82. Necessitating BiPAP prior to discharge. Needs BiPAP at night or while napping. Problems addressed as follows: #Acute respiratory failure with hypoxia and hypercapnia #COPD exacerbation # Suspected community-acquired pneumonia - Continue BiPAP at 22/10 with a rate of 24 and FiO2 of 40% at night and while napping - Continue DuoNebs every 4 hours and Pulmicort twice daily - Metabolic acidosis improving. pH 7.25, pCO2 82. White count 6. Repeat CBC, CMP, magnesium ordered for the morning. - Continue Levaquin 750 mg daily, plan to complete 5 days of antibiotics - Continue methylprednisolone 40 mg IV twice daily - Discussed case with pulmonology, will need to stay admitted until BiPAP set up at home. Plan to discharge on Saturday. - Continue oxygen 4 L during the day while awake at baseline #Tobacco abuse: nicotine patch Continue home amitriptyline 25 mg night Continue home metoprolol succinate increased to 25 mg daily for blood pressure and heart rate control Full code Regular diet Lovenox 40 mg subcu daily
[2024-10-17] MEDS: AMITRIPTYLINE 25MG TABLET 25 MG PO (20:22)
[2024-10-17] MEDS: SODIUM CHLORIDE 0.9% 10ML FLUSH SYRINGE 10 ML IV (20:23)
[2024-10-18] VITALS (17 sets, daily range): BP systolic 102–128; BP diastolic 44–82; PULSE 41–110; RESP 18–25; TEMP 36.6–36.9; O2SAT 94–100; BMI 25.1
[2024-10-18] MEDS: IPRATROPIUM/ALBUTEROL 3 ML NEB IH ×6 (01:40→21:59)
[2024-10-18] MEDS: BUDESONIDE 0.5MG/2ML NEB 0.5 MG IH ×2 (05:59→18:04)
[2024-10-18 06:28] LABS: Basophils % 0.1 % (0.1-2.0); Hematocrit 38.9 % (42.0-52.0); Hemoglobin 12.4 g/dL (14.1-18.0); Immature Granulocytes # 0.05 10^3uL; Immature Granulocytes % 0.7 %; Lymphocytes # 0.9 K/mm3 (0.7-4.5); Lymphocytes % 13.3 % (10-50); Mean Corpuscular HGB Conc 31.9 g/dL (31.8-35.4); Mean Corpuscular Hemoglobin 30.2 pg (27.0-31.2); Mean Corpuscular Volume 94.9 fl (80-94); Monocytes # 0.4 K/mm3 (0.1-1.0); Monocytes % 5.5 % (1.7-9.3); Neutrophils # 5.7 K/mm3 (1.8-7.8); Neutrophils % 80.4 % (37.0-80.0); Nucleated Red Blood Cells # 0 10^3/uL; Nucleated Red Blood Cells % 0 %; Platelet Count 170 K/mm3 (142-424); Red Cell Distribution Width 12.6 % (11.5-17.5); Red Cell Distribution Width-SD 43.6 fL; White Blood Count 7.1 K/mm3 (4.8-10.8)
[2024-10-18 06:48] LABS: Albumin Level 3.8 g/dl (3.5-5.0); Chloride 92 mmol/L (98-107); Potassium 4.4 mmoL/L (3.5-5.1); Sodium 135 mmol/L (136-145)
[2024-10-18 06:51] LABS: Alanine Aminotransferase 12 U/L (12-78); Albumin/Globulin Ratio 1.4 (1.1-1.8); Alkaline Phosphatase 58 U/L (38-126); Anion Gap 8.4 mEq/L (5-15); Aspartate Amino Transferase 23 U/L (17-59); Bilirubin,Total 0.6 mg/dl (0.2-1.3); Blood Urea Nitrogen 31 mg/dl (9-20); Carbon Dioxide 39 mmol/L (22.0-30.0); Creatinine Clearance Estimated 103 mL/min (50-200); Estimated Glomerular Filt Rate 87 ml/min (>60); GFR (African American) 105 ML/MIN (>60); Globulin 2.7 g/dL (1.3-3.2); Glucose 121 mg/dl (74-100); Total Protein,Serum 6.5 g/dl (6.3-8.2)
[2024-10-18] MEDS: ENOXAPARIN 40MG/0.4ML SYRINGE 40 MG SUBCUT (08:20)
[2024-10-18] MEDS: METOPROLOL SUCCINATE XL 25MG TABLET 25 MG PO (08:20)
[2024-10-18] MEDS: METHYLPREDNISOLONE SOD SUCC 40MG VIAL 40 MG IV ×2 (08:20→20:53)
--- NOTE | 2024-10-18 08:27 | INFXCTL.NOTE ---
Pt. is alert and orientated x 4. Pt. was on oxygen 4 liters per N/C. Pt. supposed to go on BiPAP for sleep but did not want it on until 0200 am. Pt. was awake on an off through the shift. Lung sounds with insp/exp wheezes. Pt. talking in full sentences. Pt. tolerated BiPAP well. Personal items and call stevens in reach.safety measures in place.
[2024-10-18] MEDS: levoFLOXacin 750 MG TABLET PO (10:29)
--- NOTE | 2024-10-18 14:08 | EXP.ACUTE.PN ---
Subjective *Date: 10/18/24 *Time: 17:23 Interval history: Patient wore BiPAP overnight. Improve mentation today. Wearing 3 to 4 L during the day on his baseline. Afebrile. No bowel movement since admission. Medical Exam Vital signs and Labs for Last 24 Hours: Vital Signs Temp Pulse Pulse Resp BP Pulse Ox O2 Del Method 10/18/24 13:00 Nasal Cannula 10/18/24 11:49 98.2 F 89 19 105/67 L 98 Nasal Cannula 10/18/24 11:00 Nasal Cannula 10/18/24 09:53 87 10/18/24 09:53 87 10/18/24 09:53 96 Nasal Cannula 10/18/24 09:00 Nasal Cannula 10/18/24 08:00 Nasal Cannula 10/18/24 08:00 98.1 F 101 H 20 105/56 L 96 Nasal Cannula 10/18/24 07:00 BiPAP 10/18/24 06:52 98 BiPAP 10/18/24 06:02 86 10/18/24 06:02 85 10/18/24 05:55 10/18/24 05:00 BiPAP 10/18/24 04:00 98.4 F 81 18 114/82 100 BiPAP 10/18/24 04:00 90 10/18/24 03:00 BiPAP 10/18/24 01:45 10/18/24 01:45 82 10/18/24 01:44 82 10/18/24 01:00 Nasal Cannula 10/18/24 00:00 110 H 10/18/24 00:00 98.1 F 92 H 18 102/62 L 97 Nasal Cannula 10/17/24 23:00 Nasal Cannula 10/17/24 22:44 89 10/17/24 22:44 83 10/17/24 21:00 Nasal Cannula 10/17/24 20:00 110 H 10/17/24 20:00 21 92 L Nasal Cannula 10/17/24 20:00 97.8 F 108 H 21 101/40 L 92 L Nasal Cannula 10/17/24 18:50 Nasal Cannula, BiPAP 10/17/24 18:50 89 10/17/24 18:49 81 10/17/24 18:38 Nasal Cannula 10/17/24 17:00 Nasal Cannula 10/17/24 16:00 98.1 F 99 H 20 152/66 H 95 Nasal Cannula 10/17/24 16:00 100 H 10/17/24 15:00 Nasal Cannula 10/17/24 14:50 84 10/17/24 14:50 86 10/17/24 14:49 O2 Flow Rate FiO2 10/18/24 13:00 4 10/18/24 11:49 4 10/18/24 11:00 4 10/18/24 09:53 10/18/24 09:53 10/18/24 09:53 4 10/18/24 09:00 4 10/18/24 08:00 4 10/18/24 08:00 4 10/18/24 07:00 10/18/24 06:52 40 10/18/24 06:02 10/18/24 06:02 10/18/24 05:55 40 10/18/24 05:00 10/18/24 04:00 10/18/24 04:00 10/18/24 03:00 10/18/24 01:45 40 10/18/24 01:45 10/18/24 01:44 10/18/24 01:00 4 10/18/24 00:00 10/18/24 00:00 4 10/17/24 23:00 4 10/17/24 22:44 10/17/24 22:44 10/17/24 21:00 4 10/17/24 20:00 10/17/24 20:00 4 10/17/24 20:00 4 10/17/24 18:50 4 10/17/24 18:50 10/17/24 18:49 10/17/24 18:38 10/17/24 17:00 4 10/17/24 16:00 4 10/17/24 16:00 10/17/24 15:00 4 10/17/24 14:50 10/17/24 14:50 10/17/24 14:49 40 Intake and Output 10/17/24 10/18/24 10/18/24 23:59 07:59 15:59 Intake Total 390 / 870 240 / 960 720 / 960 Output Total 450 / 1850 550 / 1050 500 / 1050 Balance -60 / -980 -310 / -90 220 / -90 Intake: Intake, Oral Amount 390 / 870 240 / 960 720 / 960 Output: Output, Urine Amount 450 / 1850 550 / 1050 500 / 1050 Other: Number of Unmeasured Voids 0 0 0 Weight 81.391 kg Patient Weight 10/18/24 23:59 Weight 81.391 kg Laboratory Results - last 24 hr 10/17/24 15:10: VBG pH 7.47 H, VBG pCO2 46.3, VBG pO2 183.6 H, VBG HCO3 32.7 H, VBG Total CO2 34.1 H, VBG O2 Saturation 99.5 H, VBG Base Excess 9.0 H, VBG Lactic Acid 2.0 10/18/24 05:45: WBC 7.1, RBC 4.10 L, Hgb 12.4 L, Hct 38.9 L, MCV 94.9 H, MCH 30.2, MCHC 31.9, RDW 12.6, Plt Count 170, MPV 11.0 H, Neut % (Auto) 80.4 H, Lymph % (Auto) 13.3, Real % (Auto) 5.5, Eos % (Auto) 0.0 L, Baso % (Auto) 0.1, Neut # (Auto) 5.7, Lymph # (Auto) 0.9, Real # (Auto) 0.4, Eos # (Auto) 0.0, Baso # (Auto) 0.0, Sodium 135 L, Potassium 4.4, Chloride 92 L, Carbon Dioxide 39 H, Anion Gap 8.4, BUN 31 H, Creatinine 0.90, Estimated Creat Clear 103, Estimated GFR 87, Est GFR ( Amer) 105, Glucose 121 H D, Calcium 9.0, Magnesium 2.0, Total Bilirubin 0.6, AST 23, ALT 12, Alkaline Phosphatase 58, Total Protein 6.5, Albumin 3.8, Globulin 2.7, Albumin/Globulin Ratio 1.4 I & O for Labs for Last 24 Hours: Intake & Output 10/15/24 10/16/24 10/17/24 10/18/24 23:59 23:59 23:59 23:59 Intake Total 830 / 830 640 / 880 630 / 870 960 / 960 Output Total 3180 / 3180 2225 / 2575 1850 / 1850 1050 / 1050 Balance -2350 / -2350 -1585 / -1695 -1220 / -980 - / -90 Weight 83.325 kg 82.8 kg 80.513 kg 81.391 kg Microbiology Reports for the Last 24 Hours: Microbiology 10/14/24 15:26 Sputum - Expectorated Sputum Gram Stain - Final 10/14/24 15:26 Sputum - Expectorated Sputum Sputum Culture - Final Stenotrophomonas maltophilia Klebsiella oxytoca 10/13/24 22:06 Blood Blood Culture - Preliminary NO GROWTH AFTER 4 DAYS 10/13/24 22:03 Blood Blood Culture - Preliminary NO GROWTH AFTER 4 DAYS Constitutional: Present no acute distress, average body habitus, chronically ill appearing and agitated Head: Present atraumatic and normocephalic Respiratory: Present prolonged expiratory phase, rhonchi and wheezes (end expiratory); Absent crackles Cardiac: Present Reg Rate and Rhythm GI: Present soft and normal bowel sounds; Absent distention or tenderness Extremities: Present normal inspection and full ROM Skin: Present intact; Absent erythema Neuro: Present Grossly Intact, alert, awake, oriented x 3 and moves all extremities Assessment and Plan *Assessment and plan (1) Acute exacerbation of chronic obstructive pulmonary disease: Status: Acute Category: Medical Code(s): J44.1 - Chronic obstructive pulmonary disease with (acute) exacerbation (2) CAD in [place] artery: Status: Acute Category: Medical Code(s): I25.10 - Atherosclerotic heart disease of [place] coronary artery without angina pectoris (3) Acute respiratory failure with hypoxia and hypercarbia: Status: Acute Category: Medical Code(s): J96.01 - Acute respiratory failure with hypoxia; J96.02 - Acute respiratory failure with hypercapnia Plan 59-year-old male who presented with confusion and weakness. Found to have severe hypercapnic respiratory failure with CO2 greater than 120. Showing improvement while wearing BiPAP. Tolerating antibiotics. More compliant with regimen today. Continues to require patient management. Pulmonology assisting with care. Wore BiPAP last night, doing better. Failed attempt without at with worsening hypercapnia the night before, pH dropped to 7.25 with increase in pCO2 82. Necessitating BiPAP prior to discharge. Needs BiPAP at night or while napping. Stable to discharge in the morning if able to go home with BiPAP. Problems addressed as follows: #Acute respiratory failure with hypoxia and hypercapnia #COPD exacerbation # Suspected community-acquired pneumonia - Continue BiPAP at 22/10 with a rate of 24 and FiO2 of 40% at night and while napping - Continue DuoNebs every 4 hours and Pulmicort twice daily - White count normal at 7.1, hemoglobin 12.4. Repeat CBC, CMP, magnesium ordered for the morning. - Continue Levaquin 750 mg daily, plan to complete 5 days of antibiotics - Continue methylprednisolone 40 mg IV twice daily - Continue oxygen 4 L during the day while awake at baseline #Tobacco abuse: nicotine patch Continue home amitriptyline 25 mg night Continue home metoprolol succinate increased to 25 mg daily for blood pressure and heart rate control Full code Regular diet Lovenox 40 mg subcu daily
[2024-10-18] MEDS: SENNOSIDES 8.6MG/DOCUSATE 50MG TABLET 1 TAB PO (20:53)
[2024-10-18] MEDS: AMITRIPTYLINE 25MG TABLET 25 MG PO (20:54)
[2024-10-19] VITALS (7 sets, daily range): BP systolic 100–105; BP diastolic 66–72; PULSE 69–113; RESP 18–24; TEMP 36.4–36.7; O2SAT 92–98; BMI 24.1
[2024-10-19] MEDS: IPRATROPIUM/ALBUTEROL 3 ML NEB IH ×4 (02:10→14:16)
--- NOTE | 2024-10-19 05:36 | PC.NURSE ---
Pt is a&ox4. Pt. is on 4L nc and tolerating well with 02 sats 96-98%. Pt. was placed on bipap while sleeping. Pt. has had no complaints this shift. Pt. has slept well. Bed is low and locked. Call light is in reach.
--- NOTE | 2024-10-19 05:54 | PC.NURSE ---
Passed water, wiped and cleared bedside table off.
[2024-10-19] MEDS: BUDESONIDE 0.5MG/2ML NEB 0.5 MG IH (06:01)
[2024-10-19 06:47] LABS: Immature Granulocytes # 0.03 10^3uL; Immature Granulocytes % 0.5 %; Lymphocytes # 0.7 K/mm3 (0.7-4.5); Lymphocytes % 11.6 % (10-50); Mean Corpuscular HGB Conc 30.8 g/dL (31.8-35.4); Mean Corpuscular Hemoglobin 29.3 pg (27.0-31.2); Mean Corpuscular Volume 95.4 fl (80-94); Mean Platelet Volume 11.4 fl (7.4-10.4); Monocytes # 0.3 K/mm3 (0.1-1.0); Monocytes % 4.2 % (1.7-9.3); Neutrophils # 5.2 K/mm3 (1.8-7.8); Neutrophils % 83.7 % (37.0-80.0); Nucleated Red Blood Cells # 0 10^3/uL; Nucleated Red Blood Cells % 0 %; Platelet Count 166 K/mm3 (142-424); Red Blood Count 4.09 M/mm3 (4.60-6.20); Red Cell Distribution Width 12.6 % (11.5-17.5); Red Cell Distribution Width-SD 44.8 fL; White Blood Count 6.2 K/mm3 (4.8-10.8)
[2024-10-19 06:55] LABS: Albumin Level 3.7 g/dl (3.5-5.0); Chloride 91 mmol/L (98-107); Potassium 4.6 mmoL/L (3.5-5.1); Sodium 136 mmol/L (136-145)
[2024-10-19 06:58] LABS: Alanine Aminotransferase 13 U/L (12-78); Albumin/Globulin Ratio 1.5 (1.1-1.8); Alkaline Phosphatase 56 U/L (38-126); Aspartate Amino Transferase 18 U/L (17-59); Bilirubin,Total 0.7 mg/dl (0.2-1.3); Blood Urea Nitrogen 27 mg/dl (9-20); Calcium 8.8 mg/dl (8.4-10.2); Creatinine Clearance Estimated 100 mL/min (50-200); Estimated Glomerular Filt Rate 87 ml/min (>60); GFR (African American) 105 ML/MIN (>60); Globulin 2.5 g/dL (1.3-3.2); Glucose 131 mg/dl (74-100); Total Protein,Serum 6.2 g/dl (6.3-8.2)
[2024-10-19 07:05] LABS: Anion Gap 10.6 mEq/L (5-15); Carbon Dioxide 39 mmol/L (22.0-30.0)
--- NOTE | 2024-10-19 07:50 | P.PN_ITS ---
Subjective *Date: 10/19/24 *Time: 07:50 Medical Exam Vital signs and Labs for Last 24 Hours: Vital Signs Temp Pulse Pulse Resp BP Pulse Ox O2 Del Method 10/19/24 07:45 Nasal Cannula 10/19/24 06:46 Nasal Cannula 10/19/24 06:03 85 10/19/24 06:03 89 10/19/24 06:03 96 Nasal Cannula 10/19/24 05:00 BiPAP 10/19/24 04:00 97.5 F L 69 24 100/66 L 96 CPAP 10/19/24 03:00 BiPAP 10/19/24 02:20 87 10/19/24 02:20 88 10/19/24 01:00 BiPAP 10/19/24 00:00 97.9 F 93 H 24 101/72 L 98 BiPAP 10/18/24 23:35 10/18/24 23:00 Nasal Cannula 10/18/24 22:15 90 10/18/24 22:15 91 H 10/18/24 21:00 Nasal Cannula 10/18/24 20:00 Nasal Cannula 10/18/24 20:00 97.9 F 41 L 18 107/44 L 94 L Nasal Cannula 10/18/24 18:28 Nasal Cannula 10/18/24 18:12 91 H 10/18/24 18:12 93 H 10/18/24 18:11 Nasal Cannula, BiPAP 10/18/24 17:00 Nasal Cannula 10/18/24 16:00 100 H 10/18/24 16:00 98.4 F 101 H 18 128/75 95 Nasal Cannula 10/18/24 15:00 Nasal Cannula 10/18/24 14:36 96 H 10/18/24 14:36 96 H 10/18/24 14:36 96 Nasal Cannula 10/18/24 13:00 Nasal Cannula 10/18/24 12:00 80 10/18/24 11:49 98.2 F 89 19 105/67 L 98 Nasal Cannula 10/18/24 11:00 Nasal Cannula 10/18/24 09:53 87 10/18/24 09:53 87 10/18/24 09:53 96 Nasal Cannula 10/18/24 09:00 Nasal Cannula 10/18/24 08:00 100 H 10/18/24 08:00 Nasal Cannula 10/18/24 08:00 98.1 F 101 H 20 105/56 L 96 Nasal Cannula O2 Flow Rate FiO2 10/19/24 07:45 10/19/24 06:46 4 10/19/24 06:03 10/19/24 06:03 10/19/24 06:03 4 10/19/24 05:00 10/19/24 04:00 40 10/19/24 03:00 10/19/24 02:20 10/19/24 02:20 10/19/24 01:00 10/19/24 00:00 40 10/18/24 23:35 40 10/18/24 23:00 4 10/18/24 22:15 10/18/24 22:15 10/18/24 21:00 4 10/18/24 20:00 4 10/18/24 20:00 4 10/18/24 18:28 4 10/18/24 18:12 10/18/24 18:12 10/18/24 18:11 4 10/18/24 17:00 4 10/18/24 16:00 10/18/24 16:00 4 10/18/24 15:00 4 10/18/24 14:36 10/18/24 14:36 10/18/24 14:36 4 10/18/24 13:00 4 10/18/24 12:00 10/18/24 11:49 4 10/18/24 11:00 4 10/18/24 09:53 10/18/24 09:53 10/18/24 09:53 4 10/18/24 09:00 4 10/18/24 08:00 10/18/24 08:00 4 10/18/24 08:00 4 Intake and Output 10/18/24 10/18/24 10/19/24 15:59 23:59 07:59 Intake Total 720 / 1680 720 / 1680 Output Total 500 / 1050 Balance 220 / 630 720 / 630 Intake: Intake, Oral Amount 720 / 1680 720 / 1680 Output: Output, Urine Amount 500 / 1050 Other: Number of Unmeasured Voids 1 Number of Bowel Movements 1 1 Weight 78.352 kg Patient Weight 10/19/24 23:59 Weight 78.352 kg Laboratory Results - last 24 hr 10/19/24 05:34: WBC 6.2, RBC 4.09 L, Hgb 12.0 L, Hct 39.0 L, MCV 95.4 H, MCH 29.3, MCHC 30.8 L, RDW 12.6, Plt Count 166, MPV 11.4 H, Neut % (Auto) 83.7 H, Lymph % (Auto) 11.6, [place] % (Auto) 4.2, Eos % (Auto) 0.0 L, Baso % (Auto) 0.0 L, Neut # (Auto) 5.2, Lymph # (Auto) 0.7, [place] # (Auto) 0.3, Eos # (Auto) 0.0, Baso # (Auto) 0.0, Sodium 136, Potassium 4.6, Chloride 91 L, Carbon Dioxide 39 H, Anion Gap 10.6, BUN 27 H, Creatinine 0.90, Estimated Creat Clear 100, Estimated GFR 87, Est GFR ( Amer) 105, Glucose 131 H, Calcium 8.8, Total Bilirubin 0.7, AST 18, ALT 13, Alkaline Phosphatase 56, Total Protein 6.2 L, Albumin 3.7, Globulin 2.5, Albumin/Globulin Ratio 1.5 I & O for Labs for Last 24 Hours: Intake & Output 10/16/24 10/17/24 10/18/24 10/19/24 23:59 23:59 23:59 23:59 Intake Total 640 / 880 630 / 870 1680 / 1680 Output Total 2225 / 2575 1850 / 1850 1050 / 1050 Balance -1585 / -1695 -1220 / -980 630 / 630 Weight 82.8 kg 80.513 kg 81.391 kg 78.352 kg Microbiology Reports for the Last 24 Hours: Microbiology 10/13/24 22:06 Blood Blood Culture - Final NO GROWTH AFTER 5 DAYS 10/13/24 22:03 Blood Blood Culture - Final NO GROWTH AFTER 5 DAYS 10/14/24 15:26 Sputum - Expectorated Sputum Gram Stain - Final 10/14/24 15:26 Sputum - Expectorated Sputum Sputum Culture - Final Stenotrophomonas maltophilia Klebsiella oxytoca The patient's infection will respond to the chosen ABx?: Yes (SPUTUM = S. MALTOPHILIA/K. OXYTOCA SENSITIVE TO LEVAQUIN,AFEBRILE OVER 24HR) Is the patient receiving the right drug, dose, and route?: Yes Could a more targeted ABx be ordered?: No How long ABx needed (days)?: 5 (PNEUMONIA)
--- NOTE | 2024-10-19 08:04 | P.DS_ITS ---
General Admission date:: 10/14/24 Discharge date: 10/19/24 HPI HPI HPI: This is a 59-year-old male with a past medical history of COPD, recurrent hypercapnic respiratory failure, hypertension, hyperlipidemia, CAD who presents emergency department today with complaints of shortness of breath. He is a longstanding COPD patient who continues to smoke. He initially contacted EMS for help with his oxygen tubing and was saturating in the 70s on his baseline oxygen requirement. He received a DuoNeb en route with little improvement in his oxygenation. He was noted to have oxygen sats of 80% on 5 L nasal cannula. He denied any chest pain. States that shortness of breath has been going on for months but has been particularly worse over the last couple days. Reports increasing his nebulizer usage at home without improvement. Emergency department workup notable for hypercapnic respiratory failure with a CO2 of 129 and a pH of 7.26. Mildly elevated BNP of 240. Respiratory pathogen panel negative. Procalcitonin negative. He was placed on BiPAP and admitted to the hospitalist service Hospital Course Hospital Course Hospital Course: 59-year-old male who presented with confusion and weakness. Found to have severe hypercapnic respiratory failure with CO2 greater than 120. Responded appropriately to BiPAP. Had recurrence of hypercapnia when transitioned to his home oxygen. Labs obtained confirming patient would benefit from noninvasive positive pressure ventilation at home on discharge. Was not safe to discharge home without BiPAP, able to discharge on Saturday to set up with appropriate respiratory equipment at home. Pulmonology assisted with care during admission. Has completed 7 days of antibiotics. No further antibiotics or steroids needed at discharge. Stable to discharge home with outpatient follow-up pulmonology. Prior to discharge, patient stated he was not sure if he would follow-up with primary care or pulmonology, stressed the importance of seeing the specialist. Strong concern he may be lost to follow-up. Problems addressed as follows: Failed attempt without at with worsening hypercapnia the night before, pH dropped to 7.25 with increase in pCO2 82. Necessitating BiPAP prior to discharge. Needs BiPAP at night or while napping. Stable to discharge in the morning if able to go home with BiPAP. Problems addressed as follows: #Acute respiratory failure with hypoxia and hypercapnia #COPD exacerbation # Suspected community-acquired pneumonia - On presentation, patient was found to have severe respiratory acidosis with pH of 7.26, pCO2 of 129. Chest x-ray with no dense consolidation but did have increased interstitial markings. Concern for component of community-acquired pneumonia on top of COPD and hypercapnic respiratory failure. Initiated on BiPAP, antibiotics, steroids. Sputum cultures obtained, grew stenotrophomonas and Klebsiella. Completed 7 days of antibiotics, overall doing better. Failed attempt without at with worsening hypercapnia, pH dropped to 7.25 with increase in pCO2 82. Necessitating BiPAP prior to discharge. Needs BiPAP at night or while napping. BiPAP ordered on Saturday so he could discharge home and have it provided by [facility] for that evening. White count had normalized. Wearing 3 L oxygen during the day which is his baseline. Sats remained in the 90s. Recommend continuing noninvasive ventilator therapy with BiPAP at 16/8 for his chronic hypercarbic respiratory failure and COPD, not DAMIR. Needs oxygen connected to BiPAP at 4 L continuous. - Wean to Trelegy 100 inhaler. Continue DuoNebs at home 4 times a day as needed. - Ultimately completed 7 days total of antibiotics. No further antibiotics or steroids at discharge. #Tobacco abuse: nicotine patch prescribed at discharge. Continue home amitriptyline 25 mg night Continue home metoprolol succinate increased to 25 mg daily for blood pressure and heart rate control Total time spent on discharge 32 minutes in counseling, documentation, chart review, and direct care with patient. Home health ordered due to patient's mobility issues which are longstanding. Would benefit from PT and OT along with nursing to evaluate occasionally and make sure patient is not becoming hypercarbic again or decompensating Exam Data for Last 24 hours Vital signs and Labs for Last 24 Hours: Temp Pulse Resp BP Pulse Ox O2 Del Method O2 Flow Rate 97.5 F L 85 24 100/66 L 96 Nasal Cannula 4 10/19/24 04:00 10/19/24 06:03 10/19/24 04:00 10/19/24 04:00 10/19/24 06:03 10/19/24 07:45 10/19/24 06:46 FiO2 40 10/18/24 23:35 Laboratory Results - last 24 hr 10/19/24 05:34: WBC 6.2, RBC 4.09 L, Hgb 12.0 L, Hct 39.0 L, MCV 95.4 H, MCH 29.3, MCHC 30.8 L, RDW 12.6, Plt Count 166, MPV 11.4 H, Neut % (Auto) 83.7 H, Lymph % (Auto) 11.6, [place] % (Auto) 4.2, Eos % (Auto) 0.0 L, Baso % (Auto) 0.0 L, Neut # (Auto) 5.2, Lymph # (Auto) 0.7, [place] # (Auto) 0.3, Eos # (Auto) 0.0, Baso # (Auto) 0.0, Sodium 136, Potassium 4.6, Chloride 91 L, Carbon Dioxide 39 H, Anion Gap 10.6, BUN 27 H, Creatinine 0.90, Estimated Creat Clear 100, Estimated GFR 87, Est GFR ( Amer) 105, Glucose 131 H, Calcium 8.8, Total Bilirubin 0.7, AST 18, ALT 13, Alkaline Phosphatase 56, Total Protein 6.2 L, Albumin 3.7, Globulin 2.5, Albumin/Globulin Ratio 1.5 I & O for Last 24 hours: Intake & Output 10/16/24 10/17/24 10/18/24 10/19/24 23:59 23:59 23:59 23:59 Intake Total 640 / 880 630 / 870 1680 / 1680 Output Total 2225 / 2575 1850 / 1850 1050 / 1050 Balance -1585 / -1695 -1220 / -980 630 / 630 Weight 82.8 kg 80.513 kg 81.391 kg 78.352 kg Microbiology Reports for the Last 24 Hours: Microbiology 10/13/24 22:06 Blood Blood Culture - Final NO GROWTH AFTER 5 DAYS 10/13/24 22:03 Blood Blood Culture - Final NO GROWTH AFTER 5 DAYS 10/14/24 15:26 Sputum - Expectorated Sputum Gram Stain - Final 10/14/24 15:26 Sputum - Expectorated Sputum Sputum Culture - Final Stenotrophomonas maltophilia Klebsiella oxytoca Constitutional Constitutional: no acute distress, average body habitus, chronically ill appearing and cooperative *Routine HEENT Exam Head: Present normocephalic Eye: Present EOMI and normal accommodation ENT: Present mucous membranes moist Comments: Tattoo by left eye of 2 teardrop *Routine Neck Exam Neck: Present supple and full ROM Routine Chest/Breast/Axilla Exam Chest wall: Absent tenderness *Routine Respiratory Exam Respiratory: Present prolonged expiratory phase, wheezes, distant breath sounds and diminished air movement; Absent rhonchi or crackles *Routine Cardiovascular Exam Cardiovascular: Present RRR, Normal S1 and Normal S2 *Routine Abdominal Exam Abdominal: Present soft and normoactive bowel sounds; Absent rebound or guarding *Routine Rectal Exam Patient deferred: visual exam *Routine Exam Patient deferred: penile exam *Routine Extremities Exam Extremities: Present full ROM and normal capillary refill; Absent cyanosis *Routine Skin Exam Skin: Present intact and dry *Routine Neurological Exam Neurological: Present alert, oriented X3, CN II-XII intact and moving all extremities; Absent altered mental status Results Data Completed and Pending Labs on day of discharge: Labs from last 24 hours 10/19/24 05:34 WBC 6.2 RBC 4.09 L Hgb 12.0 L Hct 39.0 L MCV 95.4 H MCH 29.3 MCHC 30.8 L RDW 12.6 Plt Count 166 MPV 11.4 H Neut % (Auto) 83.7 H Lymph % (Auto) 11.6 [place] % (Auto) 4.2 Eos % (Auto) 0.0 L Baso % (Auto) 0.0 L Neut # (Auto) 5.2 Lymph # (Auto) 0.7 [place] # (Auto) 0.3 Eos # (Auto) 0.0 Baso # (Auto) 0.0 Sodium 136 Potassium 4.6 Chloride 91 L Carbon Dioxide 39 H Anion Gap 10.6 BUN 27 H Creatinine 0.90 Estimated Creat Clear 100 Estimated GFR 87 Est GFR ( Amer) 105 Glucose 131 H Calcium 8.8 Total Bilirubin 0.7 AST 18 ALT 13 Alkaline Phosphatase 56 Total Protein 6.2 L Albumin 3.7 Globulin 2.5 Albumin/Globulin Ratio 1.5 DS: Diagnosis Discharge Diagnosis (1) Acute exacerbation of chronic obstructive pulmonary disease: Status: Acute Code(s): J44.1 - Chronic obstructive pulmonary disease with (acute) exacerbation (2) CAD in [place] artery: Status: Acute Code(s): I25.10 - Atherosclerotic heart disease of [place] coronary artery without angina pectoris (3) Acute respiratory failure with hypoxia and hypercarbia: Status: Acute Code(s): J96.01 - Acute respiratory failure with hypoxia; J96.02 - Acute respiratory failure with hypercapnia Meds Home Medications and Allergies Home Medications ?Medication ?Instructions ?Recorded ?Confirmed ?Type sodium chloride 0.65 % nasal spray 1 spray intranasal BIDP PRN Dry 12/23/23 10/13/24 History aerosol ([place] Saline) Nasal Passages atorvastatin 40 mg tablet 40 mg PO HS #90 tabs 4 10/14/24 Rx metoprolol succinate 25 mg 12.5 mg (1/2 x 25 mg) PO DA WEN #30 12/30/23 10/14/24 Rx tablet,extended release 24 hr tabs (Toprol XL) fluticasone fur. 100 mcg-umeclid 1 inh inhalation SERAFIN Y 90 days #90 07/22/24 10/13/24 Rx 62.5 mcg-vilant 25 mcg ea inhalat.powder (Trelegy Ellipta) albuterol sulfate 90 mcg/actuation 2 puff inhalation Q 4HP PRN 10/14/24 10/14/24 History aerosol inhaler (Ventolin HFA) Shortness Of Breath Or Wheezing amitriptyline 25 mg tablet 25 mg PO HS 10/14/24 History docusate sodium 100 mg capsule 100 mg PO BID 10/14/24 10/14/24 History ergocalciferol (vitamin D2) 1,250 50,000 unit PO WEEKL Y 10/14/24 10/13/24 History mcg (50,000 unit) capsule ipratropium 0.5 mg-albuterol 3 mg 3 ml inhalation Q4HP PRN Shortness 10/19/24 Rx (2.5 mg base)/3 mL nebulization Of Breath Or Wheezing #180 mL soln nicotine 21 mg/24 hr daily 21 mg transdermal DAILYP RI N 10/19/24 Rx transdermal patch Nicotine Cravings 28 days #2 8 ea sennosides 8.6 mg-docusate sodium 1 tab PO BID PRN Con stipation 10 10/19/24 Rx 50 mg tablet (Stimulant Laxative days #20 tabs Plus) New Prescriptions to Start Prescriptions: ipratropium-albuterol Ananth Gaspar nicotine Ananth Gaspar sennosides-docusate sodium [Stimulant Laxative Plus] Ananth Gaspar Allergies Allergy/AdvReac Type Severity Reaction Status Date / Time aspirin (ASPIRIN) Allergy Mild Rash Verified 01/22/24 13:47 codeine (CODEINE) Allergy Mild Swelling Verified 01/22/24 13:47 of Lip/Tongue/Throat ibuprofen (IBUPROFEN) Allergy Unknown Rash Verified 01/22/24 13:47 acetaminophen (From Tylenol) Allergy Rash Verified 01/22/24 13:47 tramadol Allergy Rash Verified 01/22/24 13:47 Discharge Plan Disposition Patient Disposition: Home, Self-Care Condition: Fair Discharge Order Discharge Orders: Discharge Order (Routine); Ordered 10/19/24 Ordered By: Ananth Gaspar Follow up Plan Follow up with: Julieta Roy APRN [Nurse Practitioner, Family Practice] - 10/26/24 10:20 am Candido Ng MD [Physician, Pulmonology] - 11/04/24 11:40 am Prescriptions/Medication Reconciliation: New sennosides-docusate sodium [Stimulant Laxative Plus] 8.6-50 mg Tablet 1 tab PO BID PRN (Reason: Constipation) 10 Days Qty: 20 0RF nicotine 21 mg/24 hr Patch 24 Hour 21 mg transdermal DAILYP PRN (Reason: Nicotine Cravings) 28 Days Qty: 28 0RF Continued metoprolol succinate [Toprol XL] 25 mg tablet extended release 24 hr 12.5 mg PO DAILY Qty: 30 5RF atorvastatin 40 mg tablet 40 mg PO HS Qty: 90 0RF Trelegy Ellipta 100-62.5-25 mcg blister with device 1 inh inhalation DAILY 90 Days Qty: 90 2RF [place] Saline 0.65 % aerosol,spray 1 spray intranasal BIDP PRN (Reason: Dry Nasal Passages) amitriptyline 25 mg tablet 25 mg PO HS Patient Comments: TAKE 1 TABLET BY MOUTH AT BEDTIME docusate sodium 100 mg capsule 100 mg PO BID Patient Comments: TAKE 1 CAPSULE BY MOUTH 2 TIMES A DAY ergocalciferol (vitamin D2) 1,250 mcg (50,000 unit) capsule 50,000 unit PO WEEKLY albuterol sulfate [Ventolin HFA] 90 mcg/actuation HFA aerosol inhaler 2 puff inhalation Q4HP PRN (Reason: Shortness Of Breath Or Wheezing) Changed ipratropium-albuterol 0.5 mg-3 mg(2.5 mg base)/3 mL solution for nebulization 3 ml inhalation Q4HP PRN (Reason: Shortness Of Breath Or Wheezing) Qty: 180 0RF Other Ambulatory Orders: Home Medical Equipment (Routine) Location: None Selected Ordered By: Ananth Gaspar Problem Reconciliation Problems Reviewed?: Yes Patient Discharge Instructions ACTIVITY: Continue current activity DIET: continue same diet Patient Instructions: DI for Chronic Obstructive Pulmonary Disease, DI for Respiratory Failure, Stop Light COPD Print Language: [place] Providers Primary Care Provider: Provider,Referral Admit Provider: Phu Redd Attending Provider: Phu Redd
[2024-10-19] MEDS: SENNOSIDES 8.6MG/DOCUSATE 50MG TABLET 1 TAB PO (09:21)
[2024-10-19] MEDS: METHYLPREDNISOLONE SOD SUCC 40MG VIAL 40 MG IV (09:21)
[2024-10-19] MEDS: METOPROLOL SUCCINATE XL 25MG TABLET 25 MG PO (09:21)
[2024-10-19] MEDS: ENOXAPARIN 40MG/0.4ML SYRINGE 40 MG SUBCUT (09:21)
--- NOTE | 2024-10-19 09:33 | EXP.PULM.PN ---
Subjective *Date: 10/19/24 *Time: 11:48 Interval history: No acute respiratory events over the weekend. Pulmonology Exam Inpatient Vital signs and Labs for Last 24 Hours: Temp Pulse Resp BP Pulse Ox O2 Del Method O2 Flow Rate 97.7 F 79 18 101/68 L 96 Nasal Cannula 4 10/19/24 08:00 10/19/24 08:00 10/19/24 08:00 10/19/24 08:00 10/19/24 08:00 10/19/24 08:00 10/19/24 08:00 FiO2 40 10/18/24 23:35 Laboratory Results - last 24 hr 10/19/24 05:34: WBC 6.2, RBC 4.09 L, Hgb 12.0 L, Hct 39.0 L, MCV 95.4 H, MCH 29.3, MCHC 30.8 L, RDW 12.6, Plt Count 166, MPV 11.4 H, Neut % (Auto) 83.7 H, Lymph % (Auto) 11.6, [place] % (Auto) 4.2, Eos % (Auto) 0.0 L, Baso % (Auto) 0.0 L, Neut # (Auto) 5.2, Lymph # (Auto) 0.7, [place] # (Auto) 0.3, Eos # (Auto) 0.0, Baso # (Auto) 0.0, Sodium 136, Potassium 4.6, Chloride 91 L, Carbon Dioxide 39 H, Anion Gap 10.6, BUN 27 H, Creatinine 0.90, Estimated Creat Clear 100, Estimated GFR 87, Est GFR ( Amer) 105, Glucose 131 H, Calcium 8.8, Total Bilirubin 0.7, AST 18, ALT 13, Alkaline Phosphatase 56, Total Protein 6.2 L, Albumin 3.7, Globulin 2.5, Albumin/Globulin Ratio 1.5 Temp Pulse Resp BP Pulse Ox O2 Del Method O2 Flow Rate 99.4 F 109 H 33 H 116/77 97 Nasal Cannula 4 10/14/24 08:00 10/14/24 09:12 10/14/24 08:00 10/14/24 08:00 10/14/24 08:00 10/14/24 08:00 10/14/24 08:00 FiO2 40 10/14/24 09:12 Laboratory Results - last 24 hr 10/13/24 21:25: WBC 9.8, RBC 4.91, Hgb 14.6, Hct 49.8, MCV 101.4 H, MCH 29.7, MCHC 29.3 L, RDW 12.4, Plt Count 197, MPV 10.6 H, Neut % (Auto) 77.9, Lymph % (Auto) 11.2, [place] % (Auto) 8.2, Eos % (Auto) 1.1, Baso % (Auto) 0.4, Neut # (Auto) 7.6, Lymph # (Auto) 1.1, [place] # (Auto) 0.8, Eos # (Auto) 0.1, Baso # (Auto) 0.0, PT 11.4, INR 1.03, APTT 26.3, Sodium 145, Potassium 4.6, Chloride 85 L, Carbon Dioxide 53 H*, Anion Gap 11.6, BUN 22 H, Creatinine 0.80, Estimated Creat Clear 118, Estimated GFR 100, Est GFR ( Amer) 121, Glucose 114 H, Calcium 9.7, Total Bilirubin 1.1, AST 23, ALT 15, Alkaline Phosphatase 85, Troponin I < 0.01, NT-Pro-B Natriuret Pep 240 H, Total Protein 7.9 D, Albumin 4.2, Globulin 3.7 H, Albumin/Globulin Ratio 1.1, HCV Ab M[place]LIN w/Rflx PCR Qn Negative, HIV Ag/Ab Combo Qual Negative 10/13/24 21:34: VBG pH 7.26 L, VBG pCO2 129.3 H, VBG pO2 41.3 H, VBG HCO3 56.1 H, VBG Total CO2 60.0 H, VBG O2 Saturation 77.9 H, VBG Base Excess 28.9 H, VBG Lactic Acid 2.5 H 10/13/24 21:40: Chlamy pneumoniae PCR Not detected, Adenovirus (PCR) Not detected, B. pertussis DNA (PCR) Not detected, Coronavirus OC43 (PCR) Not detected, Coronavirus HKU1 (PCR) Not detected, Coronavirus 229E (PCR) Not detected, SARS-CoV-2 (PCR) Not detected, Coronavirus NL63 (PCR) Not detected, Human Metapneumovir PCR Not detected, Influenza A (H1) PCR Not detected, Influ A (H1N1/09) PCR Not detected, Influenza A (H3) PCR Not detected, Influenza Type A (PCR) Not detected, Influenza Type B (PCR) Not detected, M. pneumoniae (PCR) Not detected, Parainfluenza 1 (PCR) Not detected, Parainfluenza 2 (PCR) Not detected, Parainfluenza 3 (PCR) Not detected, Parainfluenza 4 (PCR) Not detected, RSV (PCR) Not detected, Entero/Rhino (PCR) Not detected 10/13/24 23:35: VBG pH 7.26 L, VBG pCO2 123.0 H, VBG pO2 61.2 H, VBG HCO3 53.5 H, VBG Total CO2 57.2 H, VBG O2 Saturation 90.8 H, VBG Base Excess 26.3 H, VBG Lactic Acid 1.6 10/14/24 01:27: Sodium 140, Potassium 4.9, Chloride 86 L, Carbon Dioxide 54 H*, Anion Gap 4.9 L, BUN 21 H, Creatinine 0.80, Estimated Creat Clear 120, Estimated GFR 100, Est GFR ( Amer) 121, Glucose 126 H, Lactate 1.3, Calcium 9.9, Troponin I 0.02 10/14/24 04:15: WBC 6.7 D, RBC 4.26 L, Hgb 12.7 L D, Hct 43.4, MCV 101.9 H, MCH 29.3, MCHC 28.8 L, RDW 12.6, Plt Count 157, MPV 10.6 H, Neut % (Auto) 91.5 H, Lymph % (Auto) 6.4 L, [place] % (Auto) 0.9 L, Eos % (Auto) 0.0 L, Baso % (Auto) 0.3, Neut # (Auto) 6.1, Lymph # (Auto) 0.4 L, [place] # (Auto) 0.1, Eos # (Auto) 0.0, Baso # (Auto) 0.0, Total Counted 100, Neutrophils % (Manual) 95 H, Lymphocytes % (Manual) 5 L, Platelet Estimate Normal, RBC Morphology Normal, Phosphorus 3.2, Troponin I 0.01, Triglycerides 60, Cholesterol 153, LDL Cholesterol Direct 83.36 L, VLDL Cholesterol 12, HDL Cholesterol 41, Cholesterol/HDL Ratio 3.7 H 10/14/24 06:00: VBG pH 7.30 L, VBG pCO2 96.6 H, VBG pO2 40.9 H, VBG HCO3 46.9 H, VBG Total CO2 49.9 H, VBG O2 Saturation 77.7 H, VBG Base Excess 20.5 H, VBG Lactic Acid 1.1 10/14/24 08:15: Urine Color Yellow, Urine Appearance Clear, Urine pH 6.5, Ur Specific [place] 1.025, Urine Protein Negative, Urine Glucose (UA) Negative, Urine Ketones Negative, Urine Blood Negative, Urine Nitrate Negative, Urine Bilirubin Negative, Urine Urobilinogen 0.2, Ur Leukocyte Esterase Negative, Urine RBC 5-10, Urine WBC Occasional, Ur Squamous Epith Cells Occasional, Urine Bacteria None I & O for Labs for Last 24 Hours: Intake & Output 10/16/24 10/17/24 10/18/24 10/19/24 23:59 23:59 23:59 23:59 Intake Total 640 / 880 630 / 870 1680 / 1680 300 / 300 Output Total 2225 / 2575 1850 / 1850 1050 / 1050 550 / 550 Balance -1585 / -1695 -1220 / -980 630 / 630 -250 / -250 Weight 182 lb 8.684 oz 177 lb 8 oz 179 lb 7 oz 172 lb 11.785 oz Intake & Output 10/11/24 10/12/24 10/13/24 10/14/24 23:59 23:59 23:59 23:59 Intake Total 0 / 0 Output Total 300 / 300 Balance -300 / -300 Weight 180 lb 183 lb Microbiology Reports for the Last 24 Hours: Microbiology 10/13/24 22:06 Blood Blood Culture - Final NO GROWTH AFTER 5 DAYS 10/13/24 22:03 Blood Blood Culture - Final NO GROWTH AFTER 5 DAYS 10/14/24 15:26 Sputum - Expectorated Sputum Gram Stain - Final 10/14/24 15:26 Sputum - Expectorated Sputum Sputum Culture - Final Stenotrophomonas maltophilia Klebsiella oxytoca Constitutional: Present moderate distress Head: Present normocephalic and atraumatic ENT: Present normal exam, normal oropharynx and mucous membranes moist Neck: Present normal inspection and full ROM Respiratory: Present prolonged expiratory phase, respiratory distress and able to speak in complete sentences; Absent wheezes Cardiac: Present S1/S2, Tachycardia and radial pulses present GI: Present soft and distention; Absent tenderness or guarding Skin: Present intact; Absent cyanosis or jaundice Neuro: Present alert, awake and oriented x 3 Extremities: Present normal inspection; Absent clubbing or cyanosis Psychiatric: Present normal affect and cooperative Assessment and Plan *Assessment and plan (1) Acute exacerbation of chronic obstructive pulmonary disease: Status: Acute Category: Medical Code(s): J44.1 - Chronic obstructive pulmonary disease with (acute) exacerbation (2) Acute on chronic respiratory failure with hypoxia and hypercapnia: Status: Acute Category: Medical Code(s): J96.21 - Acute and chronic respiratory failure with hypoxia; J96.22 - Acute and chronic respiratory failure with hypercapnia (3) CAP (community acquired pneumonia): Status: Resolved Qualifiers: Laterality: right Lung location: middle lobe of lung Qualified Code(s): J18.9 - Pneumonia, unspecified organism Category: Medical Code(s): J18.9 - Pneumonia, unspecified organism Plan Mr. Lima is a 59-year-old male greater than 49-[id number] smoking history COPD multiple pulmonary nodules presented today with worsening respiratory distress and pulmonary was called for further evaluation and management. Presented with complaint of worsening shortness of breath respiratory distress and pulmonary was called for further evaluation and management. Afebrile. Hemodynamically stable. No evidence of leukocytosis. Comprehensive respiratory viral PCR panel negative. Blood gas upon admission hypercarbic respiratory failure the pH is 7.26 and pCO2 129.3 Chest x-ray upon admission no dense consolidative changes noted. Increased interstitial markings. Currently being managed for community-acquired pneumonia and COPD exacerbation with ceftriaxone, azithromycin along with DuoNebs every 4 hours along with Pulmicort every 12 scheduled. Decreased breath sounds bilateral On initial examination severe respiratory distress. Alert and oriented x 0. Interval update: No acute respiratory overnight. Continued to receive NIV at night and sleep. Sputum culture from this admission grew stenotrophomonas and Klebsiella sensitive to levofloxacin. Plan: Wean prednisone 40 mg daily to complete a total of 5-day course Continue levofloxacin to complete a total of 7-day course for stenotrophomonas and Klebsiella pneumonia Follow-up with nocturnal oximetry test and qualification for BiPAP therapy Continue noninvasive ventilator therapy BiPAP at 16/8 with RR of 16 for his chronic hypercarbic respiratory failure. (Patient needing 22/ with a rate of 24 while presented on this admission with hypercarbic respiratory failure) DuoNebs every 4 hours along with Pulmicort every 12 scheduled, can be weaned to Trelegy 100 inhaler along with DuoNebs 4 times daily as needed upon discharge # Thank you for involving pulmonary in this patient care. Will continue to follow-up
[2024-10-19] MEDS: levoFLOXacin 750 MG TABLET PO (10:17)
--- NOTE | 2024-10-20 10:12 | SW/DCPLANNER ---
Spoke with patient on the phone. Patient stated that he is doing well. Patient stated that he is aware of his upcoming appointments. Patient stated that they brought his new medicine to his room before he was discharged. Patient stated that he has no concerns or questions at this time. Harris Enriquez
== END 2024-10-19 14:47 | disposition home or self-care (01) | DRG 177 ==
LOC: ER 22:58 → ICU 10-14 14:11 → 2ND 10-14 14:20
PROVIDERS: Internal Medicine Adolescent Medicine; Internal Medicine Pulmonary Disease; Nurse Practitioner Acute Care; Admitting Provider Student in an Organized Health Care Education/Training Program; Emergency Provider Emergency Medicine; Visit Provider Student in an Organized Health Care Education/Training Program
DX: J15.0 Pneumonia due to Klebsiella pneumoniae (principal); G93.41 Metabolic encephalopathy; J96.21 Acute and chronic respiratory failure with hypoxia; J96.22 Acute and chronic respiratory failure with hypercapnia; J44.1 Chronic obstructive pulmonary disease with (acute) exacerbation; E87.4 Mixed disorder of acid-base balance; J44.0 Chronic obstructive pulmonary disease with (acute) lower respiratory infection; J15.8 Pneumonia due to other specified bacteria; I10 Essential (primary) hypertension; E78.5 Hyperlipidemia, unspecified; I25.10 Atherosclerotic heart disease of native coronary artery without angina pectoris; F17.210 Nicotine dependence, cigarettes, uncomplicated; Z79.899 Other long term (current) drug therapy; Z79.82 Long term (current) use of aspirin; Z88.5 Allergy status to narcotic agent; Z88.6 Allergy status to analgesic agent
CPT/HCPCS: 36415; 70450; 71045; 80048; 80053; 80061; 81001; 82803; 83605; 83735; 83880; 84100; 84484; 85007; 85025; 85610; 85730; 86803; 87040; 87070; 87077; 87081; 87186; 87205; 87389; 87633; 93005; 94640; 94660; 94761; 94762; 97162; 97166; 97530; J0456; J0696; J1650; J1956; J2060; J2919; J3475; J7050; J7120

== ENCOUNTER 2025-02-22 12:21 | Inpatient (IN) | payer MEDICAID, SELFPAY ==
[2025-02-22] VITALS (46 sets, daily range): BP systolic 72–193; BP diastolic 47–133; PULSE 100–124; RESP 16–26; TEMP 36.6–37.7; O2SAT 92–100; BMI 23.7; BMI 25.5
--- NOTE | 2025-02-22 12:33 | XR_ITS ---
FINAL REPORT TECHNIQUE: Single view chest CLINICAL HISTORY: sob COMPARISON: 09/20/2018 FINDINGS: A single view of the chest was obtained. The heart and mediastinum are within normal limits. There are bilateral peritracheal opacities which may be artifact related to nebulizer treatment during exam. There are worsening increased interstitial markings concerning for pulmonary edema superimposed on chronic interstitial change. There is no focal infiltrate, effusion or pneumothorax. IMPRESSION: Paratracheal opacity, likely artifact from nebulizer treatment. Worsening interstitial opacities which could represent pulmonary edema superimposed on chronic change. Reviewed, Interpreted and Dictated by Zhanna May MD Transcribed by Eleanor Smith Authenticated and [facility]
--- NOTE | 2025-02-22 12:33 | HMH.EDGENADL ---
Discharge Plan Disposition Chief Complaint: Shortness of Breath/Dyspnea Discharge ED Provider: Clinton Pitts General Adult HPI General Chief complaint: Shortness of Breath/Dyspnea Stated complaint: SOA Time Seen by Provider: 02/22/25 12:32 History of Present Illness HPI narrative: This patient is a 59-year-old male with past medical history of COPD who presents to the emergency department with shortness of breath. Patient reports that he has had gradually worsening shortness of breath over the last 3 to 4 days. He has attempted multiple treatments at home with DuoNebs with minimal success. He arrives to the emergency department tachypneic, uncomfortable, moving minimal air on ausculatory exam. Related Data Home Medications ?Medication ?Instructions ?Recorded ?Confirmed sodium chloride 0.65 % nasal spray 1 spray intranasal BIDP PRN Dry 12/23/23 10/13/24 aerosol (Emery Saline) Nasal Passages albuterol sulfate 90 mcg/actuation 2 puff inhalation Q4HP PRN 10/14/24 10/14/24 aerosol inhaler (Ventolin HFA) Shortness Of Breath Or Wheezing amitriptyline 25 mg tablet 25 mg PO HS 10/14/24 10/14/24 docusate sodium 100 mg capsule 100 mg PO BID 10/14/24 10/14/24 ergocalciferol (vitamin D2) 1,250 50,000 unit PO WEEKLY 10/14/24 10/13/24 mcg (50,000 unit) capsule Previous Rx's ?Medication ?Instructions ?Recorded atorvastatin 40 mg tablet 40 mg PO HS #90 tabs 12/30/23 metoprolol succinate 25 mg 12.5 mg (1/2 x 25 mg) PO DAILY #30 12/30/23 tablet,extended release 24 hr tabs (Toprol XL) ipratropium 0.5 mg-albuterol 3 mg 3 ml inhalation Q4HP PRN Shortness 10/19/24 (2.5 mg base)/3 mL nebulization Of Breath Or Wheezing #180 mL soln nicotine 21 mg/24 hr daily 21 mg transdermal DAILYP PRN 10/19/24 transdermal patch Nicotine Cravings 28 days #28 ea sennosides 8.6 mg-docusate sodium 1 tab PO BID PRN Constipation 10 10/19/24 50 mg tablet (Stimulant Laxative days #20 tabs Plus) fluticasone fur. 100 mcg-umeclid 1 inh inhalation DAILY 90 days #90 12/08/24 62.5 mcg-vilant 25 mcg ea inhalat.powder (Trelegy Ellipta) ipratropium 0.5 mg-albuterol 3 mg See Rx Instructions .Route 01/15/25 (2.5 mg base)/3 mL nebulization .COMPLEX #180 mL soln Allergies Allergy/AdvReac Type Severity Reaction Status Date / Time aspirin (ASPIRIN) Allergy Mild Rash Verified 01/22/24 13:47 codeine (CODEINE) Allergy Mild Swelling Verified 01/22/24 13:47 of Lip/Tongue/Throat ibuprofen (IBUPROFEN) Allergy Unknown Rash Verified 01/22/24 13:47 acetaminophen (From Tylenol) Allergy Rash Verified 01/22/24 13:47 tramadol Allergy Rash Verified 01/22/24 13:47 [facility] Disclaimer: The information contained in this section may have been updated after the patient was seen, as this information can be updated by other users. Medical History Acute on chronic respiratory failure with hypoxia and hypercapnia Acute and chronic respiratory failure with hypoxia Abnormal PET scan of colon CAD in [place] artery Pneumonia Abnormal electrocardiogram [ECG] [EKG] Dyspnea Pseudomonal pneumonia Hyperlipemia HTN (hypertension) Overweight (BMI 25.0-29.9) Pulmonary emphysema Chronic hypoxemic respiratory failure Tobacco abuse disorder Tobacco abuse counseling Screening for lung cancer Smoking greater than 30 pack years Dyspnea on exertion Tobacco use COPD (chronic obstructive pulmonary disease) Patient is following with pulmonary. He does have multiple nodules in the lung. He also has severe COPD. Initially in October this patient had no pulmonary nodules however in June 2021 and then 2023 there were new nodules noted. This along with the abnormalities found on the PET scan is obviously very concerning see below. Surgical History History of repair of ACL History of colonoscopy Family History Other Alcohol abuse Cancer Coronary artery disease Diabetes Emphysema lung Social History (Updated 10/14/24 @ 00:54 by Renita Coleman RN) Smoking Status: Current every day smoker tobacco type: cigarettes packs per day: 2 second hand exposure: Yes alcohol intake: former substance use type: denies use current occupational status: disabled Travel in the last 8 weeks?: None household members: friend(s) housing: house Have you lived/traveled outside [place] in past 30 days?: No Contact w/someone who lives/traveled outside US past 30 days?: No Exposure to someone with infectious disease in past 14 days?: No Do you have a fever (greater than 100.4 F or 38 C)?: No Have you tested positive for COVID-19?: No Exposed to someone with COVID-19 in past 14 days?: No Do you have a sore throat?: No Do you have a cough?: No Do you have any weakness?: No Do you have any diarrhea?: No Are you experiencing any unusual bleeding?: No Do you have any muscle aches/pain?: No Do you have any abdominal pain?: No Are you experiencing loss of taste or smell?: No Other Medical History Have you received the Flu Vaccine for this season: No Have you received the Pneumonia Vaccine: No ROS Obtained: Yes All systems reviewed & no additional complaints except as documented Physical Exam General General appearance: alert and in no apparent distress Head Head exam: atraumatic and normocephalic Eye Eye exam: Present normal appearance, PERRL and EOMI ENT ENT exam: Present normal exam and normal external ear exam Neck Neck exam: Present normal inspection, full ROM and trachea midline Chest Chest inspection: Present normal inspection and symmetric chest wall rise; Absent tenderness Respiratory Respiratory exam: Present respiratory distress, wheezes and prolonged expiratory phase Cardiovascular Cardiovascular exam: Present regular rate, normal rhythm and other (appears warm and well perfused) Abdominal Exam Abdominal exam: Absent distention or tenderness exam: Absent deferred Extremities Exam Extremities exam: Present normal inspection and full ROM Neurological Exam Neurological exam: Present alert and oriented X3 Psychiatric Psychiatric exam: Present normal affect Skin Skin exam: Present warm and dry Medical Decision Making Medical Records Medical records reviewed: Yes I reviewed the patient's medical records. Screening: Per USPSTF and CDC recommendations, given the prevalence of disease in our region, it is our hospital?s policy to screen for HIV and viral Hepatitis for all patients aged 18 and over and those with ongoing risk factors. [place] Inquiry Pt receiving controlled substance: No [place] was queried for this patient: No Vital Signs: 02/22/25 12:25 02/22/25 12:26 02/22/25 12:30 Temperature 97.8 F Temperature Source Temporal Artery Scan Pulse Rate 119 H 120 H Pulse Rate [Left Radial] 117 H Respiratory Rate 26 H 16 Blood Pressure 131/79 120/92 H Blood Pressure [Right Arm] 131/79 Blood Pressure Mean [Right Arm] 96 02 Sat by Pulse Oximetry 97 99 Oxygen Delivery Method Nasal Cannula Nasal Cannula Nasal Cannula Oxygen Flow Rate (LPM) 4 4 4 02/22/25 12:48 02/22/25 12:48 02/22/25 13:00 Temperature Temperature Source Pulse Rate 118 H 116 H 117 H Pulse Rate [Left Radial] Respiratory Rate 24 Blood Pressure 130/76 Blood Pressure [Right Arm] Blood Pressure Mean [Right Arm] 02 Sat by Pulse Oximetry 97 Oxygen Delivery Method Nasal Cannula Oxygen Flow Rate (LPM) 4 02/22/25 13:30 02/22/25 15:00 Temperature Temperature Source Pulse Rate 121 H 111 H Pulse Rate [Left Radial] Respiratory Rate 23 19 Blood Pressure 116/80 121/70 Blood Pressure [Right Arm] Blood Pressure Mean [Right Arm] 02 Sat by Pulse Oximetry 97 98 Oxygen Delivery Method Nasal Cannula Oxygen Flow Rate (LPM) 4 Lab Data Lab results reviewed: Yes I reviewed the patient's lab results. Lab Results 02/22/25 13:08: VBG pH 7.17 L, VBG pCO2 141.7 H, VBG pO2 29.2, VBG HCO3 50.6 H, VBG Total CO2 55.0 H, VBG O2 Saturation 55.1, VBG Base Excess 22.1 H, VBG Lactic Acid 2.3 H 02/22/25 13:14: WBC 11.8 H, RBC 4.31 L, Hgb 12.5 L, Hct 42.5, MCV 98.6 H, MCH 29.0, MCHC 29.4 L, RDW 12.4, Plt Count 226, MPV 9.9, Neut % (Auto) 87.4 H, Lymph % (Auto) 4.9 L, [place] % (Auto) 5.2, Eos % (Auto) 0.3, Baso % (Auto) 0.3, Neut # (Auto) 10.3 H, Lymph # (Auto) 0.6 L, [place] # (Auto) 0.6, Eos # (Auto) 0.0, Baso # (Auto) 0.0, Sodium 138, Potassium 5.1, Chloride 86 L, Carbon Dioxide 48 H*, Anion Gap 9.1, BUN 21 H, Creatinine 1.00, Estimated Creat Clear 89, Estimated GFR 77, Est GFR ( Amer) 93, Glucose 160 H, Calcium 9.3, Magnesium 1.7, Total Bilirubin 1.2, AST 22, ALT 19, Alkaline Phosphatase 87, Troponin I 0.02, C-Reactive Protein 118.6 H, Total Protein 7.5, Albumin 3.7, Globulin 3.8 H, Albumin/Globulin Ratio 1.0 L 02/22/25 14:02: SARS-CoV-2 (PCR) Not detected, Influenza A Untype (PCR) Not detected, Influenza Type B (PCR) Not detected 02/22/25 14:30: VBG pH 7.17 L, VBG pCO2 140.7 H, VBG pO2 32.0, VBG HCO3 49.6 H, VBG Total CO2 53.9 H, VBG O2 Saturation 59.1, VBG Base Excess 21.0 H, VBG Lactic Acid 2.9 H 02/22/25 13:14 02/22/25 13:14 Orders (Tests/Meds): ED MEDICATIONS Generic Name Dose Route Start Last Admin Trade Name Freq PRN Reason Stop Dose Admin Ceftriaxone Sodium 2 gm/ 100 mls @ 200 mls/hr 02/22/25 12:45 02/22/25 14:12 Sodium Chloride IV 03/04/25 12:44 Infused Q24H HAYDEE Infusion Discontinued Medications Generic Name Dose Route Start Last Admin Trade Name Freq PRN Reason Stop Dose Admin Albuterol Sulfate 20 mg 02/22/25 12:45 02/22/25 12:47 Albuterol 0.083% 2.5 Mg/3 Ml [facility] 02/22/25 12:46 20 mg ONCE ONE Administration Albuterol/Ipratropium 9 ml 02/22/25 12:44 02/22/25 12:47 Ipratropium/Albuterol 3 Ml [facility] 02/22/25 12:45 9 ml ONCE ONE Administration Sodium Chloride 1,000 mls @ 999 mls/hr 02/22/25 12:37 02/22/25 14:34 Sod Chlor 0.9% 1000ml Bag IV 02/22/25 13:37 Infused .Q1H1M ONE Infusion Vancomycin/PEG/NADA/Lysine/Water 1.25 gm in 250 mls @ 125 mls/hr 02/22/25 13:00 02/22/25 14:19 Vancomycin 1.25gm/250ml (Peg) Premix IV 02/22/25 14:59 125 mls/hr ONCE ONE Administration Methylprednisolone Sodium Succinate 125 mg 02/22/25 12:33 02/22/25 13:33 Methylprednisolone Sod Succ 125mg Vial IV 02/22/25 12:34 125 mg ONCE ONE Administration Miscellaneous 1 each 02/22/25 12:45 02/22/25 14:12 Vancomycin Consult Request NOTAPPLIC 03/24/25 12:44 Not Given CONSULT PHARMACY [facility]E ORDERS Category Date Time Status CXR --portable [XR chest portable] Stat Exams 02/22/25 12:33 Taken CBC w/Auto Diff [Complete Blood Count Auto Diff] Stat Lab 02/22/25 13:14 Completed CMP [Comprehensive Metabolic Panel] Stat Lab 02/22/25 13:14 Completed CRP [C-Reactive Protein] Stat Lab 02/22/25 13:14 Completed MAG [Magnesium] Stat Lab 02/22/25 13:14 Completed Rapid PCR Covid and Flu A/B Stat Lab 02/22/25 14:02 Completed Troponin I Q3H Lab 02/22/25 13:14 Completed Troponin I Q3H Lab 02/22/25 15:45 Ordered Blood Culture Stat Micro 02/22/25 13:30 Received VBG [Venous Blood Gas] Stat RT 02/22/25 13:08 Completed VBG [Venous Blood Gas] Stat RT 02/22/25 14:30 Completed VBG [Venous Blood Gas] Stat RT 02/22/25 15:30 Ordered Medical Decision Narrative: MDM In summary, this 59-year-old male presents to the emergency department today with shortness of. Initial evaluation the patient uncomfortable, tachycardia. Differential diagnosis includes but is not limited to COPD exacerbation, pneumonia, asthma exacerbation, pulmonary embolism. Based on these concerns, I ordered comprehensive laboratory and imaging workup. Patient received DuoNebs, normal saline, vancomycin, ceftriaxone, methylprednisone, for treatment. Labs personally reviewed and interpreted demonstrate mild leukocytosis, mild anemia, no major electrolyte abnormalities, significant acidosis with CO2 retention. X-rays personally interpreted by me demonstrate inflammatory changes bilaterally, no significant consolidative process. I had interactive discussion with the internal medicine service. After an interactive discussion they were agreeable to admitting the patient to the ICU for continued care and management. Critical Care Critical Care Time Critical Care Time: Yes Attestation: On 02/22/25, the high probability of a clinically significant, sudden or life threatening deterioration of the following system(s) required my full and direct attention, intervention and personal management. The time I documented below is in addition to time spent performing reported procedures but includes the following listed in this critical care notation. Total Time Total Critical Care Time: 45
--- OUTSIDE RECORDS SUMMARY | 2025-02-22 12:39 | XMS_ITS | Encounter Summary ---
Author Organization [facility] Address [address] [place] [address] Care Team Providers Care Assistant Director Of Financial Aid Name Role Phone Kaushal Carr MD Primary Care Provider [phone] Encounter Details Date Type Department Care Team (Late st Contact Info) Description 12/06/2023 Orders Only External Location [address] [place] [id number] Juan Luis Chong MD [address] [place] [address] [place] [address] Social History Tobacco Use Types [...] filedocumented in this encounter Care Teams Assistant Director Of Financial Aid Relationship Specialty Start Date End Date Kaushal Carr MD [address] [place] [address] PCP - General 10/31/22 documented as of this encounter
--- OUTSIDE RECORDS SUMMARY | 2025-02-22 12:39 | XMS_ITS | Encounter Summary ---
Author Organization [facility] Address [address] [place] [address] Care Team Providers Care Telephone Solicitor Name Role Phone Kaushal Carr MD Primary Care Provider [phone] Encounter Details Date Type Department Care Team (Late st Contact Info) Description 12/22/2023 Orders Only External Location [address] [place] [id number] Kendall Sylvester MD [address] [place] [phone] Social History Tobacco Use Types Packs/Day [...] on filedocumented in this encounter Care Teams Telephone Solicitor Relationship Specialty Start Date End Date Kaushal Carr MD [address] [place] [address] PCP - General 10/31/22 documented as of this encounter
--- OUTSIDE RECORDS SUMMARY | 2025-02-22 12:39 | XMS_ITS | Encounter Summary ---
Author Organization [facility] Address [address] [place] [address] Care Team Providers Care Purchasing Administrative Assistant Name Role Phone Kaushal Carr MD Primary Care Provider [phone] Encounter Details Date Type Department Care Team (Late st Contact Info) Description 07/01/2023 Orders Only External Location [address] [place] [address] Julieta Roy APRN [address] [place] [address] Social History Tobacco Use Types Packs/Day Years [...] phy 07/01/2023 1:57 PM EDT Julieta Roy COMMERCIAL TIRE SERVICE TECHNICIAN IMG CT PROCEDURES Final Result documented in this encounter Visit Diagnoses Not on filedocumented in this encounter Care Teams Purchasing Administrative Assistant Relationship Specialty Start Date End Date Kaushal Carr MD [address] [place] [address] PCP - General 10/31/22 documented as of this encounter
--- OUTSIDE RECORDS SUMMARY | 2025-02-22 12:39 | XMS_ITS | Encounter Summary ---
Author Organization [facility] Address [address] [place] [address] Care Team Providers Care Engine Research Engineer Name Role Phone Kaushal Carr MD Primary Care Provider [phone] Encounter Details Date Type Department Care Team (Late st Contact Info) Description 12/23/2023 Orders Only External Location [address] [place] [address] Provider, External Social History Tobacco Use Types [...] on filedocumented in this encounter Care Teams Engine Research Engineer Relationship Specialty Start Date End Date Kaushal Carr MD [address] [place] [address] PCP - General 10/31/22 documented as of this encounter
--- OUTSIDE RECORDS SUMMARY | 2025-02-22 12:39 | XMS_ITS | Encounter Summary ---
Author Organization [facility] Address [address] [place] [address] Care Team Providers Care Research Scientist Name Role Phone Kaushal Carr MD Primary Care Provider [phone] Encounter Details Date Type Department Care Team (Late st Contact Info) Description 12/22/2023 Orders Only External Location [address] [place] [phone] Provider, External Social History Tobacco Use Types [...] on filedocumented in this encounter Care Teams Research Scientist Relationship Specialty Start Date End Date Kaushal Carr MD [address] [place] [address] PCP - General 10/31/22 documented as of this encounter
--- OUTSIDE RECORDS SUMMARY | 2025-02-22 12:39 | XMS_ITS | Encounter Summary ---
Author Organization [facility] Address [address] [place] [address] Care Team Providers Care Stem Roller Name Role Phone Kaushal Carr MD Primary Care Provider [phone] Encounter Details Date Type Department Care Team (Late st Contact Info) Description 07/03/2023 Orders Only External Location [address] [place] [phone] Provider, External Social History Tobacco Use Types [...] on filedocumented in this encounter Care Teams Stem Roller Relationship Specialty Start Date End Date Kaushal Carr MD [address] [place] [address] PCP - General 10/31/22 documented as of this encounter
--- OUTSIDE RECORDS SUMMARY | 2025-02-22 12:39 | XMS_ITS | Encounter Summary ---
Author Organization [facility] Address [address] [place] [address] Care Team Providers Care Research Affiliate Name Role Phone Kaushal Carr MD Primary Care Provider [phone] Encounter Details Date Type Department Care Team (Late st Contact Info) Description 12/22/2023 Orders Only External Location [address] [place] [address] Kendall Sylvester MD [address] [place] [address] Social History Tobacco Use Types Packs/Day [...] filedocumented in this encounter Care Teams Research Affiliate Relationship Specialty Start Date End Date Kaushal Carr MD [address] [place] [address] PCP - General 10/31/22 documented as of this encounter
--- OUTSIDE RECORDS SUMMARY | 2025-02-22 12:39 | XMS_ITS | Encounter Summary ---
Author Organization [facility] Address [address] [place] [address] Care Team Providers Care Power Plant Electrician Name Role Phone Kaushal Carr MD Primary Care Provider [phone] Encounter Details Date Type Department Care Team (Late st Contact Info) Description 12/23/2023 Orders Only External Location [address] [place] [phone] Kendall Sylvester MD [address] [address] Social History Tobacco Use Types [...] on filedocumented in this encounter Care Teams Power Plant Electrician Relationship Specialty Start Date End Date Kaushal Carr MD [address] [place] [address] PCP - General 10/31/22 documented as of this encounter
--- OUTSIDE RECORDS SUMMARY | 2025-02-22 12:39 | XMS_ITS | Clinical Summary ---
Author Organization [facility] Address [facility] [place] [id number] Care Team Providers Care Rivet Flunky Name Role Phone Kaushal Carr MD Primary Care Provider [phone] Social History Tobacco Use Types Packs/Day Years [...] Date Last Done Comments [facility]-Depression Screening 1967 [facility]-Infant/Child/Adol SDOH Screenings 1965 [facility]- SDOH Screenings 09/13/1985 [...] 09/13/2017 [facility]-Zoster Vaccines (1 of 2) 09/13/2017 [id number] Vaccine (3 - 2024- season) 2024 08/16/2020, 07/19/2020 [facility]-Influenza Vaccine (#1) 2024 HPV Vaccines Aged Out No longer [...] this topic Insurance [employer] Care Teams Rivet Flunky Relationship Specialty Start Date End Date Kaushal Carr MD [address] [place] [address] [place] [address] PCP - General 10/31/22
--- OUTSIDE RECORDS SUMMARY | 2025-02-22 12:39 | XMS_ITS | Encounter Summary ---
Author Organization [facility] Address [address] [place] [address] Care Team Providers Care Dermatologist Name Role Phone Kaushal Carr MD Primary Care Provider [phone] Encounter Details Date Type Department Care Team (Late st Contact Info) Description 12/22/2023 Orders Only External Location [address] [place] [phone] Kendall Sylvester MD [address] [address] Social History Tobacco Use Types [...] on filedocumented in this encounter Care Teams Dermatologist Relationship Specialty Start Date End Date Kaushal Carr MD [address] [place] [address] PCP - General 10/31/22 documented as of this encounter
--- OUTSIDE RECORDS SUMMARY | 2025-02-22 12:39 | XMS_ITS | Encounter Summary ---
Author Organization [facility] Address [address] [place] [address] Care Team Providers Care Tower Director Name Role Phone Kaushal Carr MD Primary Care Provider [phone] Encounter Details Date Type Department Care Team (Late st Contact Info) Description 10/17/2023 Orders Only External Location [address] [place] [phone] Provider, External Social History Tobacco Use Types [...] on filedocumented in this encounter Care Teams Tower Director Relationship Specialty Start Date End Date Kaushal Carr MD [address] [place] [address] PCP - General 10/31/22 documented as of this encounter
--- OUTSIDE RECORDS SUMMARY | 2025-02-22 12:39 | XMS_ITS | Encounter Summary ---
Author Organization [facility] Address [address] [place] [address] Care Team Providers Care Leveler Helper Name Role Phone Kaushal Carr MD Primary Care Provider [phone] Encounter Details Date Type Department Care Team (Late st Contact Info) Description 12/22/2023 Orders Only External Location [address] [place] [phone] Kendall Sylvester MD [address] [place] [address] Social History Tobacco Use Types Packs/Day [...] on filedocumented in this encounter Care Teams Leveler Helper Relationship Specialty Start Date End Date Kaushal Carr MD [address] [place] [address] PCP - General 10/31/22 documented as of this encounter
--- OUTSIDE RECORDS SUMMARY | 2025-02-22 12:39 | XMS_ITS | Encounter Summary ---
Author Organization [facility] Address [address] [place] [address] Care Team Providers Care Foundation Drill Operator Helper Name Role Phone Kaushal Carr MD Primary Care Provider [phone] Encounter Details Date Type Department Care Team (Late st Contact Info) Description 01/10/2024 Orders Only External Location [address] [place] [address] Provider, External Social History Tobacco Use Types [...] on filedocumented in this encounter Care Teams Foundation Drill Operator Helper Relationship Specialty Start Date End Date Kaushal Carr MD [address] [place] [address] PCP - General 10/31/22 documented as of this encounter
--- OUTSIDE RECORDS SUMMARY | 2025-02-22 12:39 | XMS_ITS | Encounter Summary ---
Author Organization [facility] Address [address] [place] [address] Care Team Providers Care Senior System Operator Name Role Phone Kaushal Carr MD Primary Care Provider [phone] Encounter Details Date Type Department Care Team (Late st Contact Info) Description 07/12/2023 Orders Only External Location [address] [place] [phone] Provider, External Social History Tobacco Use Types [...] on filedocumented in this encounter Care Teams Senior System Operator Relationship Specialty Start Date End Date Kaushal Carr MD [address] [place] [address] PCP - General 10/31/22 documented as of this encounter
[2025-02-22] MEDS: ALBUTEROL 0.083% 2.5 MG/3 ML NEB 20 MG IH (12:47)
[2025-02-22] MEDS: IPRATROPIUM/ALBUTEROL 3 ML NEB 9 ML IH (12:47)
--- NOTE | 2025-02-22 12:59 | ECG_ITS ---
APPROVED REPORT Exam: Resting ECG HR:112 bpm ECG Measurements Heart Rate 112 AXES AZ 138 P 91 QRSd 98 QRS 130 QT 319 T 55 QTc 386 Conclusion SINUS TACHYCARDIA INCOMPLETE RIGHT BUNDLE BRANCH BLOCK [90+ ms QRS DURATION, TERMINAL R IN V1/V2, 40+ ms S IN I/aVL/V4/V5/V6] RIGHT VENTRICULAR HYPERTROPHY [SOME/ALL OF: PROMINENT R IN V1, LATE TRANSITION, RAD, SUNNY, SSS] ABNORMAL ECG Electronically signed by : LAKESHA RYDER, 03/01/2025 07:21:17
[2025-02-22 13:14] LABS: VBG HCO3 50.6 mmol/L (23-30); VBG PO2 29.2 mmol/L (28-40)
[2025-02-22 13:19] LABS: Hematocrit 42.5 % (42.0-52.0); Hemoglobin 12.5 g/dL (14.1-18.0); Immature Granulocytes % 1.9 %; Mean Corpuscular HGB Conc 29.4 g/dL (31.8-35.4); Mean Corpuscular Hemoglobin 29.0 pg (27.0-31.2); Mean Corpuscular Volume 98.6 fl (80-94); Nucleated Red Blood Cells % 0 %; Platelet Count 226 K/mm3 (142-424); Red Blood Count 4.31 M/mm3 (4.60-6.20); Red Cell Distribution Width-SD 44.9 fL; White Blood Count 11.8 K/mm3 (4.8-10.8)
[2025-02-22 13:21] LABS: Lactate Venous 2.3 mmol/L (0.4-2.0); VBG PCO2 141.7 mmol/L (35-51); VBG PH 7.17 mmol/L (7.31-7.41)
[2025-02-22] MEDS: METHYLPREDNISOLONE SOD SUCC 125MG VIAL 125 MG IV (13:33)
[2025-02-22] MEDS: 0.9 % SODIUM CHLORIDE 1000ML 1,000 ML 999 ML IV ×2 (13:33→22:26)
[2025-02-22 13:37] LABS: Alanine Aminotransferase 19 U/L (12-78); Albumin Level 3.7 g/dl (3.5-5.0); Albumin/Globulin Ratio 1.0 (1.1-1.8); Alkaline Phosphatase 87 U/L (38-126); Aspartate Amino Transferase 22 U/L (17-59); Bilirubin,Total 1.2 mg/dl (0.2-1.3); Blood Urea Nitrogen 21 mg/dl (9-20); Calcium 9.3 mg/dl (8.4-10.2); Chloride 86 mmol/L (98-107); Creatinine Clearance Estimated 89 mL/min (50-200); Creatinine,Serum 1.00 mg/dl (0.66-1.25); Estimated Glomerular Filt Rate 77 ml/min (>60); GFR (African American) 93 ML/MIN (>60); Globulin 3.8 g/dL (1.3-3.2); Glucose 160 mg/dl (74-100); Magnesium 1.7 mg/dl (1.6-2.3); Potassium 5.1 mmoL/L (3.5-5.1); Sodium 138 mmol/L (136-145); Total Protein,Serum 7.5 g/dl (6.3-8.2)
[2025-02-22 13:43] LABS: C-Reactive Protein 118.6 mg/L (0-4)
[2025-02-22 13:52] LABS: Troponin I 0.02 ng/ml (0.00-0.034)
[2025-02-22 13:53] LABS: Anion Gap 9.1 mEq/L (5-15); Carbon Dioxide 48 mmol/L (22.0-30.0)
[2025-02-22 14:05] LABS: Coronavirus 19, PCR Not Detected (NotDetected); Influenza A, PCR Not Detected (NotDetected); Influenza B, PCR Not Detected (NotDetected)
[2025-02-22] MEDS: VANCOMYCIN/WATER FOR INJ (PEG) 1.25 GM/250 ML PIGGYBACK IV (14:19)
[2025-02-22 14:30] LABS: VBG HCO3 49.6 mmol/L (23-30); VBG PO2 32.0 mmol/L (28-40)
[2025-02-22 14:32] LABS: Lactate Venous 2.9 mmol/L (0.4-2.0); VBG PCO2 140.7 mmol/L (35-51); VBG PH 7.17 mmol/L (7.31-7.41)
--- NOTE | 2025-02-22 15:16 | PC.NURSE ---
Dr. Pitts speaking with Arline Garrison about possible admission.
[2025-02-22 15:41] LABS: VBG HCO3 47.0 mmol/L (23-30); VBG PO2 36.2 mmol/L (28-40)
[2025-02-22 15:45] LABS: Lactate Venous 3.0 mmol/L (0.4-2.0); VBG PCO2 141.5 mmol/L (35-51); VBG PH 7.14 mmol/L (7.31-7.41)
--- NOTE | 2025-02-22 15:50 | P.HP_ITS ---
<Statement entered by Ananth Gaspar MD - 02/22/25 19:39> Rounded on patient after nurse practitioner. Personally examined and interviewed patient. Agree with exam findings and care plan as documented. After admission, patient responded poorly to BiPAP. Decision was made by pulmonology to proceed with intubation. Patient intubated and admitted to ICU. Repeat VBG showed improvement in blood gas with decrease in pCO2 from 1 40-75, pH improved to 7.32. Currently sedated with propofol and fentanyl. History of Present Illness *Admission Date: 02/22/25 *Reason for visit:: hypercapnic respiratory failure *History of present illness: Mr. Lima is a 59-year-old male with a primary medical history of COPD with baseline continuous 4 L nasal cannula, recurrent hypercapnic respiratory failure, hypertension, hyperlipidemia, CAD, and tobacco dependence. He prese nted to the emergency department today with complaints of shortness of breath for the last 3 to 4 days. He states he has used DuoNebs multiple times without success. Patient denies cough, congestion, fever, abdominal pain, chest pain. Assessment in the ED reveals very little air movement with inspiration and expiration. ABG was obtained and showed critically elevated CO2 of 141 with respiratory acidosis pH 7.17. Patient was placed on BiPAP and monitored for improvement, serial VBG's obtained in the ED which were grossly unchanged. Additional workup was significant for mild leukocytosis of 11.8, BUN 21, creatinine 1.00. Carbon dioxide of 48 and chloride of 86. CRP elevated at 118, Pro-Elias pending. I personally interpreted patient's chest x-ray which shows pulmonary congestion, no evidence of pneumonia or consolidations. Pulmonology, Dr. Ng was consulted from the emergency department. [facility] Disclaimer: The information contained in this section may have been updated after the patient was seen, as this information can be updated by other users. Medical History (Updated 10/23/24 @ 00:00 by Background Daemon) Acute on chronic respiratory failure with hypoxia and hypercapnia Acute and chronic respiratory failure with hypoxia Abnormal PET scan of colon CAD in [place] artery Pneumonia Abnormal electrocardiogram [ECG] [EKG] Dyspnea Pseudomonal pneumonia Hyperlipemia HTN (hypertension) Overweight (BMI 25.0-29.9) Pulmonary emphysema Chronic hypoxemic respiratory failure Tobacco abuse disorder Tobacco abuse counseling Screening for lung cancer Smoking greater than 30 pack years Dyspnea on exertion Tobacco use COPD (chronic obstructive pulmonary disease) Surgical History History of repair of ACL History of colonoscopy Family History Other Alcohol abuse Cancer Coronary artery disease Diabetes Emphysema lung Social History (Updated 10/14/24 @ 00:54 by Renita Coleman RN) Smoking Status: Current every day smoker tobacco type: cigarettes packs per day: 2 second hand exposure: Yes alcohol intake: former substance use type: denies use current occupational status: disabled Travel in the last 8 weeks?: None household members: friend(s) housing: house Have you lived/traveled outside [place] in past 30 days?: No Contact w/someone who lives/traveled outside US past 30 days?: No Exposure to someone with infectious disease in past 14 days?: No Do you have a fever (greater than 100.4 F or 38 C)?: No Have you tested positive for COVID-19?: No Exposed to someone with COVID-19 in past 14 days?: No Do you have a sore throat?: No Do you have a cough?: No Do you have any weakness?: No Do you have any diarrhea?: No Are you experiencing any unusual bleeding?: No Do you have any muscle aches/pain?: No Do you have any abdominal pain?: No Are you experiencing loss of taste or smell?: No Other Medical History Have you received the Flu Vaccine for this season: No Have you received the Pneumonia Vaccine: No Review of Systems Review of Systems Review of systems:: unable to obtain Meds Home Medications and Allergies Home Medications ?Medication ?Instructions ?Recorded ?Confirmed ?Type sodium chloride 0.65 % nasal spray 1 spray intranasal BIDP PRN Dry 12/23/23 10/13/24 History aerosol ([place] Saline) Nasal Passages atorvastatin 40 mg tablet 40 mg PO HS #90 tabs 4 10/14/24 Rx metoprolol succinate 25 mg 12.5 mg (1/2 x 25 mg) PO DA WEN #30 12/30/23 10/14/24 Rx tablet,extended release 24 hr tabs (Toprol XL) albuterol sulfate 90 mcg/actuation 2 puff inhalation Q 4HP PRN 10/14/24 10/14/24 History aerosol inhaler (Ventolin HFA) Shortness Of Breath Or Wheezing amitriptyline 25 mg tablet 25 mg PO HS 10/14/24 History docusate sodium 100 mg capsule 100 mg PO BID 10/14/24 10/14/24 History ergocalciferol (vitamin D2) 1,250 50,000 unit PO WEEKL Y 10/14/24 10/13/24 History mcg (50,000 unit) capsule ipratropium 0.5 mg-albuterol 3 mg 3 ml inhalation Q4HP PRN Shortness 10/19/24 Rx (2.5 mg base)/3 mL nebulization Of Breath Or Wheezing #180 mL soln nicotine 21 mg/24 hr daily 21 mg transdermal DAILYP ND N 10/19/24 Rx transdermal patch Nicotine Cravings 28 days #2 8 ea sennosides 8.6 mg-docusate sodium 1 tab PO BID PRN Con stipation 10 10/19/24 Rx 50 mg tablet (Stimulant Laxative days #20 tabs Plus) fluticasone fur. 100 mcg-umeclid 1 inh inhalation SERAFIN Y 90 days #90 12/08/24 Rx 62.5 mcg-vilant 25 mcg ea inhalat.powder (Trelegy Ellipta) ipratropium 0.5 mg-albuterol 3 mg See Rx Instructions .Route 01/15/25 Rx (2.5 mg base)/3 mL nebulization .COMPLEX #180 mL soln New Prescriptions to Start Prescriptions: Allergies Allergy/AdvReac Type Severity Reaction Status Date / Time aspirin (ASPIRIN) Allergy Mild Rash Verified 01/22/24 13:47 codeine (CODEINE) Allergy Mild Swelling Verified 01/22/24 13:47 of Lip/Tongue/Throat ibuprofen (IBUPROFEN) Allergy Unknown Rash Verified 01/22/24 13:47 acetaminophen (From Tylenol) Allergy Rash Verified 01/22/24 13:47 tramadol Allergy Rash Verified 01/22/24 13:47 Exam Data for Last 24 hours Vital signs and Labs for Last 24 Hours: Temp Pulse Resp BP Pulse Ox O2 Del Method O2 Flow Rate 97.8 F 111 H 19 121/70 98 Nasal Cannula 4 02/22/25 12:25 02/22/25 15:00 02/22/25 15:00 02/22/25 15:00 02/22/25 15:00 02/22/25 13:30 02/22/25 13:30 FiO2 30 02/22/25 14:38 Laboratory Results - last 24 hr 02/22/25 13:08: VBG pH 7.17 L, VBG pCO2 141.7 H, VBG pO2 29.2, VBG HCO3 50.6 H, VBG Total CO2 55.0 H, VBG O2 Saturation 55.1, VBG Base Excess 22.1 H, VBG Lactic Acid 2.3 H 02/22/25 13:14: WBC 11.8 H, RBC 4.31 L, Hgb 12.5 L, Hct 42.5, MCV 98.6 H, MCH 29.0, MCHC 29.4 L, RDW 12.4, Plt Count 226, MPV 9.9, Neut % (Auto) 87.4 H, Lymph % (Auto) 4.9 L, [place] % (Auto) 5.2, Eos % (Auto) 0.3, Baso % (Auto) 0.3, Neut # (Auto) 10.3 H, Lymph # (Auto) 0.6 L, [place] # (Auto) 0.6, Eos # (Auto) 0.0, Baso # (Auto) 0.0, Sodium 138, Potassium 5.1, Chloride 86 L, Carbon Dioxide 48 H*, Anion Gap 9.1, BUN 21 H, Creatinine 1.00, Estimated Creat Clear 89, Estimated GFR 77, Est GFR ( Amer) 93, Glucose 160 H, Calcium 9.3, Magnesium 1.7, Total Bilirubin 1.2, AST 22, ALT 19, Alkaline Phosphatase 87, Troponin I 0.02, C-Reactive Protein 118.6 H, Total Protein 7.5, Albumin 3.7, Globulin 3.8 H, Albumin/Globulin Ratio 1.0 L 02/22/25 14:02: SARS-CoV-2 (PCR) Not detected, Influenza A Untype (PCR) Not detected, Influenza Type B (PCR) Not detected 02/22/25 14:30: VBG pH 7.17 L, VBG pCO2 140.7 H, VBG pO2 32.0, VBG HCO3 49.6 H, VBG Total CO2 53.9 H, VBG O2 Saturation 59.1, VBG Base Excess 21.0 H, VBG Lactic Acid 2.9 H 02/22/25 15:41: VBG pH 7.14 L, VBG pCO2 141.5 H, VBG pO2 36.2, VBG HCO3 47.0 H, VBG Total CO2 51.3 H, VBG O2 Saturation 64.3, VBG Base Excess 17.9 H, VBG Lactic Acid 3.0 H I & O for Last 24 hours: Intake & Output 02/19/25 02/20/25 02/21/25 02/22/25 23:59 23:59 22:59 23:59 Intake Total 1100 / 1100 Balance 1100 / 1100 Weight 77.111 kg Constitutional Constitutional: no acute distress, obese, chronically ill appearing and cooperative *Routine HEENT Exam Head: Present normocephalic Eye: Present EOMI and PERRL ENT: Present mucous membranes moist *Routine Neck Exam Neck: Present supple; Absent lymphadenopathy *Routine Respiratory Exam Respiratory: Present prolonged expiratory phase, respiratory distress, rhonchi, wheezes and diminished air movement *Routine Cardiovascular Exam Cardiovascular: Present Normal S1, Normal S2 and tachycardia; Absent murmur *Routine Abdominal Exam Abdominal: Present soft and normoactive bowel sounds; Absent tenderness or distended *Routine Rectal Exam Rectal:: deferred *Routine Genitalia Exam Genitalia:: deferred *Routine Extremities Exam Extremities: Present full ROM; Absent cyanosis, clubbing or edema *Routine Skin Exam Skin: Present intact, dry and warm; Absent rash *Routine Neurological Exam Neurological: Present alert, oriented X3, vision grossly intact, hearing grossly intact and normal speech Routine Psychiatric Exam Psychiatric: Present normal affect Assessment and Plan *Assessment and plan (1) Acute exacerbation of chronic obstructive pulmonary disease: Status: Acute Category: Medical Code(s): J44.1 - Chronic obstructive pulmonary disease with (acute) exacerbation (2) Respiratory failure: Status: Acute Qualifiers: Respiratory failure complication: hypoxia and hypercapnia Category: Medical Code(s): J96.90 - Respiratory failure, unspecified, unspecified whether with hypoxia or hypercapnia (3) COPD (chronic obstructive pulmonary disease) with emphysema: Status: Acute Category: Medical Code(s): J43.9 - Emphysema, unspecified (4) Tobacco dependence: Status: Acute Category: Medical Code(s): F17.200 - Nicotine dependence, unspecified, uncomplicated (5) Acute on chronic respiratory failure with hypoxia and hypercapnia: Status: Acute Category: Medical Code(s): J96.21 - Acute and chronic respiratory failure with hypoxia; J96.22 - Acute and chronic respiratory failure with hypercapnia Plan Mr. Lima is a 59-year-old male with a primary medical history of COPD with baseline continuous 4 L nasal cannula, recurrent hypercapnic respiratory failure, hypertension, hyperlipidemia, CAD, and tobacco dependence. He presented to the emergency department today with complaints of shortness of breath for the last 3 to 4 days. He states he has used DuoNebs multiple times without success. Patient denies cough, congestion, fever, abdominal pain, chest pain. Assessment in the ED reveals very little air movement with inspiration and expiration. ABG was obtained and showed critically elevated CO2 of 141 with respiratory acidosis pH 7.17. Patient was placed on BiPAP and monitored for improvement, serial VBG's obtained in the ED which were grossly unchanged. Additional workup was significant for mild leukocytosis of 11.8, BUN 21, creatinine 1.00. Carbon dioxide of 48 and chloride of 86. CRP elevated at 118, Pro-Elias pending. I personally interpreted patient's chest x-ray which shows pulmonary congestion, no evidence of pneumonia or consolidations. Pulmonology, Dr. Ng was consulted from the emergency department. #Acute on chronic hypercapnic respiratory failure #Acute COPD exacerbation with emphysema ?Patient was admitted to the ICU tolerating BiPAP without issues. Patient sitting up in the bed on the phone. Patient has very little air movement on auscultation. Lungs sound very tight/wheezing. DuoNebs every 4 hours scheduled, Pulmicort twice daily, patient received methylprednisolone 125 mg in the ED, will continue with methylprednisolone 40 mg BID. ?Patient received broad-spectrum antibiotic coverage in the ED vancomycin and ceftriaxone. Patient was admitted in September 2024 and sputum culture grew Klebsiella and stenotrophomonas sensitive to levaquin. Tranitioning pt. to levaquin daily. -Pulmonolgy consulted, apprecite their recommendations. Resume home medications once reconciled. Full code N.p.o. VTE?Lovenox Bedrest
--- NOTE | 2025-02-22 16:04 | EXP.PULM.CON ---
[facility] Disclaimer: The information contained in this section may have been updated after the patient was seen, as this information can be updated by other users. 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 He does have multiple nodules in the lung. He also has severe COPD. Initially in October this patient had no pulmonary nodules however in June 2021 and then 2023 there were new nodules noted. This along with the abnormalities found on the PET scan is obviously very concerning see below. Surgical History History of repair of ACL History of colonoscopy Family History Other Alcohol abuse Cancer Coronary artery disease Diabetes Emphysema lung Social History (Updated 10/14/24 @ 00:54 by Renita Coleman RN) Smoking Status: Current every day smoker tobacco type: cigarettes packs per day: 2 second hand exposure: Yes alcohol intake: former substance use type: denies use current occupational status: disabled Travel in the last 8 weeks?: None household members: friend(s) housing: house Have you lived/traveled outside [place] in past 30 days?: No Contact w/someone who lives/traveled outside [place] past 30 days?: No Exposure to someone with infectious disease in past 14 days?: No Do you have a fever (greater than 100.4 F or 38 C)?: No Have you tested positive for COVID-19?: No Exposed to someone with COVID-19 in past 14 days?: No Do you have a sore throat?: No Do you have a cough?: No Do you have any weakness?: No Do you have any diarrhea?: No Are you experiencing any unusual bleeding?: No Do you have any muscle aches/pain?: No Do you have any abdominal pain?: No Are you experiencing loss of taste or smell?: No Review of Systems Constitutional Constitutional: Reports anorexia, Reports body ache(s) and Reports fatigue Eyes Eyes: Denies eye discharge, Denies dry eyes, Denies irritation and Denies itchy eyes ENT Ears, Nose, Mouth, and Throat: Denies epistaxis, Denies facial pain, Denies lip swelling and Denies throat swelling *Cardiovascular Cardiovascular: Reports dyspnea and Reports dyspnea on exertion *Respiratory Respiratory: Denies change in phlegm color, Reports chest congestion, Reports cough, Reports dyspnea, Reports dyspnea on exertion, Reports excessive phlegm production, Denies hemoptysis, Denies pain on inspiration, Denies pain with cough and Reports wheezing *Gastrointestinal Gastrointestinal: Denies abdominal pain, Denies belching and Denies cramping *Musculoskeletal Musculoskeletal: Reports back pain, Reports myalgias and Reports other (No small joint swelling or Pain) Psychiatric Psychiatric: Denies homicidal ideation and Denies suicidal ideation Endocrine Endocrine: Reports fatigue and Denies heat intolerance Hematologic/Lymphatic Hematologic/Lymphatic: Denies easy bleeding and Denies lymphadenopathy Allergic/Immunologic Allergic/Immunologic: Denies itchy eyes, Denies lip swelling, Denies throat swelling and Reports wheezing Pulmonology Exam Inpatient Vital signs and Labs for Last 24 Hours: Temp Pulse Resp BP Pulse Ox O2 Del Method O2 Flow Rate 97.8 F 111 H 19 121/70 98 Nasal Cannula 4 02/22/25 12:25 02/22/25 15:00 02/22/25 15:00 02/22/25 15:00 02/22/25 15:00 02/22/25 13:30 02/22/25 13:30 FiO2 30 02/22/25 14:38 Laboratory Results - last 24 hr 02/22/25 13:08: VBG pH 7.17 L, VBG pCO2 141.7 H, VBG pO2 29.2, VBG HCO3 50.6 H, VBG Total CO2 55.0 H, VBG O2 Saturation 55.1, VBG Base Excess 22.1 H, VBG Lactic Acid 2.3 H 02/22/25 13:14: WBC 11.8 H, RBC 4.31 L, Hgb 12.5 L, Hct 42.5, MCV 98.6 H, MCH 29.0, MCHC 29.4 L, RDW 12.4, Plt Count 226, MPV 9.9, Neut % (Auto) 87.4 H, Lymph % (Auto) 4.9 L, [place] % (Auto) 5.2, Eos % (Auto) 0.3, Baso % (Auto) 0.3, Neut # (Auto) 10.3 H, Lymph # (Auto) 0.6 L, [place] # (Auto) 0.6, Eos # (Auto) 0.0, Baso # (Auto) 0.0, Sodium 138, Potassium 5.1, Chloride 86 L, Carbon Dioxide 48 H*, Anion Gap 9.1, BUN 21 H, Creatinine 1.00, Estimated Creat Clear 89, Estimated GFR 77, Est GFR ( Amer) 93, Glucose 160 H, Calcium 9.3, Magnesium 1.7, Total Bilirubin 1.2, AST 22, ALT 19, Alkaline Phosphatase 87, Troponin I 0.02, C-Reactive Protein 118.6 H, Total Protein 7.5, Albumin 3.7, Globulin 3.8 H, Albumin/Globulin Ratio 1.0 L 02/22/25 14:02: SARS-CoV-2 (PCR) Not detected, Influenza A Untype (PCR) Not detected, Influenza Type B (PCR) Not detected 02/22/25 14:30: VBG pH 7.17 L, VBG pCO2 140.7 H, VBG pO2 32.0, VBG HCO3 49.6 H, VBG Total CO2 53.9 H, VBG O2 Saturation 59.1, VBG Base Excess 21.0 H, VBG Lactic Acid 2.9 H 02/22/25 15:41: VBG pH 7.14 L, VBG pCO2 141.5 H, VBG pO2 36.2, VBG HCO3 47.0 H, VBG Total CO2 51.3 H, VBG O2 Saturation 64.3, VBG Base Excess 17.9 H, VBG Lactic Acid 3.0 H I & O for Labs for Last 24 Hours: Intake & Output 02/19/25 02/20/25 02/21/25 02/22/25 23:59 23:59 22:59 23:59 Intake Total 1100 / 1100 Balance 1100 / 1100 Weight 170 lb Constitutional: Present severe distress Head: Present normocephalic and atraumatic ENT: Present normal exam, normal oropharynx and mucous membranes moist Neck: Present normal inspection and full ROM Respiratory: Present prolonged expiratory phase, respiratory distress, wheezes and diminished air movement; Absent able to speak in complete sentences Cardiac: Present S1/S2, Tachycardia and radial pulses present GI: Present soft and distention; Absent tenderness or guarding Skin: Present intact; Absent cyanosis or jaundice Neuro: Present alert and awake; Absent oriented x 3 Extremities: Present normal inspection; Absent clubbing or cyanosis Psychiatric: Present normal affect and cooperative Meds Home Medications and Allergies Home Medications ?Medication ?Instructions ?Recorded ?Confirmed ?Type sodium chloride 0.65 % nasal spray 1 spray intranasal BIDP PRN Dry 12/23/23 10/13/24 History aerosol (Hume Saline) Nasal Passages atorvastatin 40 mg tablet 40 mg PO HS #90 tabs 12/30/23 10/14/24 Rx metoprolol succinate 25 mg 12.5 mg (1/2 x 25 mg) PO DAILY #30 12/30/23 10/14/24 Rx tablet,extended release 24 hr tabs (Toprol XL) albuterol sulfate 90 mcg/actuation 2 puff inhalation Q4HP PRN 10/14/24 10/14/24 History aerosol inhaler (Ventolin HFA) Shortness Of Breath Or Wheezing amitriptyline 25 mg tablet 25 mg PO HS 10/14/24 10/14/24 History docusate sodium 100 mg capsule 100 mg PO BID 10/14/24 10/14/24 History ergocalciferol (vitamin D2) 1,250 50,000 unit PO WEEKLY 10/14/24 10/13/24 History mcg (50,000 unit) capsule ipratropium 0.5 mg-albuterol 3 mg 3 ml inhalation Q4HP PRN Shortness 10/19/24 Rx (2.5 mg base)/3 mL nebulization Of Breath Or Wheezing #180 mL soln nicotine 21 mg/24 hr daily 21 mg transdermal DAILYP PRN 10/19/24 Rx transdermal patch Nicotine Cravings 28 days #28 ea sennosides 8.6 mg-docusate sodium 1 tab PO BID PRN Constipation 10 10/19/24 Rx 50 mg tablet (Stimulant Laxative days #20 tabs Plus) fluticasone fur. 100 mcg-umeclid 1 inh inhalation DAILY 90 days #90 12/08/24 Rx 62.5 mcg-vilant 25 mcg ea inhalat.powder (Trelegy Ellipta) ipratropium 0.5 mg-albuterol 3 mg See Rx Instructions .Route 01/15/25 Rx (2.5 mg base)/3 mL nebulization .COMPLEX #180 mL soln New Prescriptions to Start Prescriptions: Allergies Allergy/AdvReac Type Severity Reaction Status Date / Time aspirin (ASPIRIN) Allergy Mild Rash Verified 01/22/24 13:47 codeine (CODEINE) Allergy Mild Swelling Verified 01/22/24 13:47 of Lip/Tongue/Throat ibuprofen (IBUPROFEN) Allergy Unknown Rash Verified 01/22/24 13:47 acetaminophen (From Tylenol) Allergy Rash Verified 01/22/24 13:47 tramadol Allergy Rash Verified 01/22/24 13:47 Results Laboratory Findings 02/22/25 13:14 02/22/25 13:14 Abnormal lab findings: Abnormal Labs 02/22/25 02/22/25 02/22/25 13:08 13:14 14:30 WBC 11.8 H RBC 4.31 L Hgb 12.5 L MCV 98.6 H MCHC 29.4 L Neut % (Auto) 87.4 H Lymph % (Auto) 4.9 L Neut # (Auto) 10.3 H Lymph # (Auto) 0.6 L VBG pH 7.17 L 7.17 L VBG pCO2 141.7 H 140.7 H VBG HCO3 50.6 H 49.6 H VBG Total CO2 55.0 H 53.9 H VBG Base Excess 22.1 H 21.0 H VBG Lactic Acid 2.3 H 2.9 H Chloride 86 L Carbon Dioxide 48 H* BUN 21 H Glucose 160 H C-Reactive Protein 118.6 H Globulin 3.8 H Albumin/Globulin Ratio 1.0 L 02/22/25 15:41 WBC RBC Hgb MCV MCHC Neut % (Auto) Lymph % (Auto) Neut # (Auto) Lymph # (Auto) VBG pH 7.14 L VBG pCO2 141.5 H VBG HCO3 47.0 H VBG Total CO2 51.3 H VBG Base Excess 17.9 H VBG Lactic Acid 3.0 H Chloride Carbon Dioxide BUN Glucose C-Reactive Protein Globulin Albumin/Globulin Ratio Assessment and Plan *Assessment and plan (1) Acute exacerbation of chronic obstructive pulmonary disease: Status: Acute Category: Medical Code(s): J44.1 - Chronic obstructive pulmonary disease with (acute) exacerbation (2) Acute respiratory failure with hypoxia and hypercarbia: Status: Acute Category: Medical Code(s): J96.01 - Acute respiratory failure with hypoxia; J96.02 - Acute respiratory failure with hypercapnia Plan Mr. Lima is a 59-year-old male greater than [id number] smoker history of COPD chronic hypoxic respiratory failure recurrent pneumonia multiple pulmonary nodules presented to the ER with worsening respiratory distress altered mentation pulmonary was called for further evaluation and management. Patient admits worsening respiratory distress but denies any worsening cough or change in sputum color. Neutrophilic predominant leukocytosis. Afebrile. Hemodynamically stable. Chest x-ray upon admission bilateral patchy airspace disease. Blood gas upon admission severe hypercarbic respiratory failure with a pH of 7.47 and pCO2 141.7 with no significant improvement on his blood gas despite oxygen ambulation therapies and noninvasive ventilatory therapy with repeat blood gas continue to show pH of 7.14 and pCO2 141.5. Despite patient's ability to appropriately respond to verbal commands his waxing and waning mental status is concerning at this point of time. Plan: Given continued hypercarbic respiratory failure no significant plan was made to proceed with intubation and mechanical ventilatory support at this point of time. ER physician notified. Will follow-up postintubation DuoNebs every 4 hours and Pulmicort every 12 scheduled Follow-up tracheal aspirate results Recommend levofloxacin 750 mg daily pending final sputum culture results Total critical care time spent on this patient is 35 minutes managing acute hypoxic respiratory failure BiPAP therapy. This time spent include reviewing test results including interpreting chest x-rays, labs and arterial blood gas, optimizing the BiPAP settings,formulating plan of care, discussing the plan of care with the team and the nursing staff.
--- NOTE | 2025-02-22 16:14 | PC.NURSE ---
call made to pts sister at pts request.
[2025-02-22] MEDS: ETOMIDATE 40MG/20ML VIAL 23 MG IV (16:15)
[2025-02-22] MEDS: ROCURONIUM BROMIDE 50MG/5ML VIAL 77 MG IV (16:16)
--- NOTE | 2025-02-22 16:21 | XR_ITS ---
PROCEDURE INFORMATION: Exam: XR Chest Exam date and time: 02/22/2025 4:22 PM Age: 59 years old Clinical indication: Device placement; Other: Ett placement TECHNIQUE: Imaging protocol: Radiologic exam of the chest. Views: 1 view. COMPARISON: CR XR CHEST PORTABLE 02/22/2025 12:45 PM FINDINGS: Tubes, catheters and devices: ET tube is in good position. Lungs: Hyperinflation. A prominent bleb in the right lung apex unchanged from prior. No evidence of focal infiltrates. Pleural spaces: Unremarkable. No pleural effusion. No pneumothorax. Heart/Mediastinum: Unremarkable. No cardiomegaly. Bones/joints: Unremarkable. IMPRESSION: Hyperinflation. A prominent bleb in the right lung apex unchanged from prior. ET tube is in good position. No evidence of focal infiltrates.
--- NOTE | 2025-02-22 16:44 | PC.NURSE ---
1600-Patient moved to room [address] Pitts spoke to patient in detail about the need for intubation. 1615- Etomidate given 1616- Rocc given 1617- ETT 8.0 placed with 22 at the gum. + color change. 1618- B/P 101/71 P:123 RR:20 O2:100 1620: Radiology at bedside. Proprofol started.
[2025-02-22 16:53] LABS: Microscopic, Urine URINE MICROSCOPIC (MICROSCOPIC)
--- NOTE | 2025-02-22 16:54 | XR_ITS ---
PROCEDURE INFORMATION: Exam: XR Chest Exam date and time: 02/22/2025 4:56 PM Age: 59 years old Clinical indication: Device placement; Other: Ogt placement TECHNIQUE: Imaging protocol: Radiologic exam of the chest. Views: 1 view. COMPARISON: CR XR CHEST PORTABLE 02/22/2025 4:22 PM FINDINGS: Tubes, catheters and devices: The NG tube is in good position. Lungs: The chest is hyperinflated. A prominent right upper lobe bleb is noted. Pleural spaces: Unremarkable. No pleural effusion. No pneumothorax. Heart/Mediastinum: Unremarkable. No cardiomegaly. Bones/joints: Unremarkable. IMPRESSION: NG tube in good position.
[2025-02-22 16:56] LABS: Bilirubin,Urine Negative (Negative); Color,Urine YELLOW (Yellow); Glucose,Urine (UA) Negative (Negative); Ketones,Urine Negative (Negative); Leukocyte Esterase,Urine Negative (Negative); PH,Urine 6.0 (5.0-8.5); Protein,Urine TRACE (Negative); Specific Gravity, Urine >= 1.030 (1.005-1.030); Urobilinogen,Urine 0.2 EU/dl (0.2)
--- NOTE | 2025-02-22 17:15 | PC.NURSE ---
report called to emily in ICU
[2025-02-22 17:20] LABS: Reflex Lactic Add Lactic Reflex
[2025-02-22 17:23] LABS: Troponin I 0.04 ng/ml (0.00-0.034)
[2025-02-22 17:25] LABS: ABG HCO3 38.0 mmhg (22.0-26.0); ABG PH 7.33 mmol/L (7.35-7.45); ABG TCO2 40.2 mmhg (23-27)
--- NOTE | 2025-02-22 17:33 | PC.NURSE ---
ARRIVED TO THE ICU WITH [employer] HELPER
[2025-02-22 17:44] LABS: Bacteria,Urine Trace /lpf; Calcium Oxalate Crystals,Urine 1+ /lpf; RBC,Urine Occasional #/hpf (0-3)
[2025-02-22] MEDS: FENTANYL CITRATE/PF 1,000 MCG in 0.9 % SODIUM CHLORIDE 80 ML 2.5 MCG IV (17:48)
[2025-02-22] MEDS: IPRATROPIUM/ALBUTEROL 3 ML NEB IH ×2 (18:03→22:54)
[2025-02-22] MEDS: BUDESONIDE 0.5MG/2ML NEB 0.5 MG IH (18:03)
[2025-02-22 18:04] LABS: ABG PCO2 74.5 mmhg (35.0-45.0); ABG PO2 49.9 mmhg (80-100); PEEP 10; Source lr
--- NOTE | 2025-02-22 18:08 | PC.NURSE ---
limited admission because of sedation and intubation
[2025-02-22 18:28] LABS: Adenovirus,PCR Not Detected (NotDetected); Chlamydophila Pneumoniae, PCR Not Detected (NotDetected); Coronavirus 19, PCR Not Detected (NotDetected); Coronovirus HKU1,PCR Not Detected (NotDetected); Influenza A, PCR Not Detected (NotDetected); Influenza AH1, 2009 Not Detected (NotDetected); Influenza AH1, PCR Not Detected (NotDetected); Influenza AH3,PCR Not Detected (NotDetected); Influenza B, PCR Not Detected (NotDetected); Mycoplasma Pneumoniae, PCR Not Detected (NotDetected); Parainfluenza 1, PCR Not Detected (NotDetected); Parainfluenza 2, PCR Not Detected (NotDetected); Parainfluenza 3, PCR Not Detected (NotDetected); Parainfluenza 4, PCR Not Detected (NotDetected)
[2025-02-22 18:53] LABS: Lactic Acid Follow Up (RFLX 1) 3.5 mmol/L (0.7-2.1)
[2025-02-22 19:58] LABS: POC Glucose,Bedside 179 gm/dL (70-110)
[2025-02-22 20:26] LABS: Reflex Lactic (2 hrs) Add Lactic Reflex
[2025-02-22 20:52] LABS: Lactic Acid Follow up (RFLX 2) 2.5 mmol/L (0.7-2.1)
[2025-02-22] MEDS: METHYLPREDNISOLONE SOD SUCC 40MG VIAL 40 MG IV (21:07)
[2025-02-23] VITALS (84 sets, daily range): BP systolic 84–205; BP diastolic 60–109; PULSE 73–131; RESP 10–23; TEMP 36.8–37.8; O2SAT 78–100; BMI 25.6
[2025-02-23] MEDS: IPRATROPIUM/ALBUTEROL 3 ML NEB IH ×6 (01:15→21:19)
[2025-02-23 05:20] LABS: Lactate Venous 2.0 mmol/L (0.4-2.0); VBG HCO3 36.3 mmol/L (23-30); VBG PCO2 48.6 mmol/L (35-51); VBG PH 7.49 mmol/L (7.31-7.41); VBG PO2 71.1 mmol/L (28-40)
[2025-02-23 06:08] LABS: Hematocrit 33.3 % (42.0-52.0); Immature Granulocytes % 0.8 %; Mean Corpuscular HGB Conc 30.0 g/dL (31.8-35.4); Mean Corpuscular Hemoglobin 28.5 pg (27.0-31.2); Mean Corpuscular Volume 94.9 fl (80-94); Nucleated Red Blood Cells % 0 %; Platelet Count 215 K/mm3 (142-424); Red Blood Count 3.51 M/mm3 (4.60-6.20); Red Cell Distribution Width-SD 43.2 fL; White Blood Count 7.8 K/mm3 (4.8-10.8)
[2025-02-23 06:16] LABS: Chloride 94 mmol/L (98-107); Potassium 4.6 mmoL/L (3.5-5.1); Sodium 138 mmol/L (136-145)
[2025-02-23 06:19] LABS: Alanine Aminotransferase 16 U/L (12-78); Alkaline Phosphatase 70 U/L (38-126); Aspartate Amino Transferase 18 U/L (17-59); Bilirubin,Total 0.5 mg/dl (0.2-1.3); Blood Urea Nitrogen 30 mg/dl (9-20); Creatinine Clearance Estimated 79 mL/min (50-200); Creatinine,Serum 1.20 mg/dl (0.66-1.25); Estimated Glomerular Filt Rate 62 ml/min (>60); GFR (African American) 76 ML/MIN (>60); Hemoglobin 10.0 g/dL (14.1-18.0); Total Protein,Serum 6.0 g/dl (6.3-8.2)
[2025-02-23 06:20] LABS: Calcium 8.7 mg/dl (8.4-10.2); Glucose 126 mg/dl (74-100)
[2025-02-23] MEDS: BUDESONIDE 0.5MG/2ML NEB 0.5 MG IH ×2 (06:39→18:14)
[2025-02-23 06:49] LABS: Carbon Dioxide 42 mmol/L (22.0-30.0)
[2025-02-23 06:50] LABS: Anion Gap 6.6 mEq/L (5-15)
--- NOTE | 2025-02-23 07:36 | PC.NURSE ---
dr gil called to let us know we will be doing a sbt on patient later on this morning
--- NOTE | 2025-02-23 08:21 | PC.NURSE ---
notified dr curtis that patient was placed in medical restraints to prevent et tube removal.
[2025-02-23] MEDS: LEVOFLOXACIN/D5W 750 MG/150 ML 750 MG/150 ML PIGGYBACK 100 MG IV (08:26)
[2025-02-23] MEDS: METHYLPREDNISOLONE SOD SUCC 40MG VIAL 40 MG IV ×2 (08:34→20:06)
--- NOTE | 2025-02-23 08:34 | P.PN_ITS ---
<Statement entered by Phu Redd MD - 02/27/25 14:19> Agree with the plan of care as outlined by the EN[employer] LEVEL SALES REPRESENTATIVE. Subjective *Date: 02/23/25 *Time: 12:52 Interval history: Patient is currently intubated, pulmonology following. Patient was placed in mechanical restraints this morning to prevent extubation. Receiving fentanyl and propofol for sedation. Levaquin for suspected pneumonia. Medical Exam Vital signs and Labs for Last 24 Hours: Vital Signs Temp Pulse Pulse Resp BP BP Pulse Ox 02/23/25 07:00 100.0 F H 123 H 22 112/86 99 02/23/25 06:53 02/23/25 06:45 100.0 F H 124 H 22 126/86 97 02/23/25 06:39 117 H 02/23/25 06:39 121 H 02/23/25 06:39 22 94 L 02/23/25 06:38 100.0 F H 118 H 22 144/84 H 95 02/23/25 06:30 100.0 F H 120 H 10 L 142/105 H 99 02/23/25 06:00 99.9 F H 100 H 22 119/86 97 02/23/25 05:00 100.0 F H 101 H 22 95/63 L 98 02/23/25 05:00 02/23/25 04:15 100.0 F H 106 H 22 102/76 L 97 02/23/25 04:00 100.0 F H 106 H 22 100/65 L 96 02/23/25 04:00 100 H 02/23/25 04:00 98 02/23/25 03:45 100.0 F H 106 H 22 93/67 L 96 02/23/25 03:30 100.0 F H 105 H 22 102/71 L 96 02/23/25 03:15 99.7 F H 107 H 22 105/70 L 94 L 02/23/25 03:00 99.9 F H 107 H 22 101/68 L 94 L 02/23/25 03:00 02/23/25 02:47 97 02/23/25 02:45 99.9 F H 107 H 22 101/67 L 96 02/23/25 02:30 99.9 F H 107 H 22 96/68 L 98 02/23/25 02:15 99.9 F H 107 H 22 101/69 L 98 02/23/25 02:00 22 97 02/23/25 02:00 99.7 F H 108 H 22 97/70 L 97 02/23/25 01:45 99.7 F H 107 H 22 95/67 L 98 02/23/25 01:30 99.7 F H 84 22 104/79 L 78 L 02/23/25 01:18 109 H 02/23/25 01:18 109 H 02/23/25 01:15 99.5 F 102 H 22 95/71 L 100 02/23/25 01:00 99.5 F 104 H 22 93/65 L 99 02/23/25 01:00 02/23/25 00:45 99.3 F 103 H 22 100/70 L 99 02/23/25 00:40 22 95 02/23/25 00:30 99.3 F 22 97/60 L 99 02/23/25 00:15 99.1 F 22 95/66 L 02/23/25 00:00 95 02/23/25 00:00 98 02/23/25 00:00 99.1 F 101 H 22 84/60 L 98 02/23/25 00:00 100 H 02/22/25 23:30 99.3 F 22 91/64 L 02/22/25 23:15 99.5 F 22 87/59 L 02/22/25 23:00 02/22/25 23:00 99.5 F 110 H 22 85/57 L 100 02/22/25 22:56 108 H 02/22/25 22:56 101 H 02/22/25 22:45 99.7 F H 100 H 22 84/59 L 99 02/22/25 22:30 99.7 F H 103 H 22 85/53 L 99 02/22/25 22:15 99.5 F 105 H 22 72/54 L 98 02/22/25 22:00 22 97 02/22/25 22:00 99.5 F 105 H 22 88/57 L 98 02/22/25 21:00 02/22/25 21:00 99.3 F 104 H 22 85/56 L 98 02/22/25 20:50 22 94 L 02/22/25 20:00 100 H 02/22/25 20:00 99.3 F 106 H 22 84/61 L 100 02/22/25 20:00 98 02/22/25 19:00 99.9 F H 112 H 17 87/56 L 98 02/22/25 19:00 02/22/25 18:45 99.9 F H 115 H 16 89/54 L 98 02/22/25 18:41 99.9 F H 117 H 19 81/47 L 97 02/22/25 18:17 99.7 F H 22 110/90 02/22/25 18:14 98.1 F 112 H 22 104/80 L 02/22/25 18:14 02/22/25 18:12 120 H 94 L 02/22/25 18:12 124 H 02/22/25 18:12 122 H 02/22/25 18:12 92 L 02/22/25 18:12 22 92 L 02/22/25 18:00 104/80 L 02/22/25 17:50 02/22/25 17:45 111/89 02/22/25 17:43 120 H 02/22/25 17:27 116/87 02/22/25 17:15 134/107 H 02/22/25 17:09 122/92 H 02/22/25 17:00 147/107 H 02/22/25 16:52 152/106 H 02/22/25 16:45 159/116 H 02/22/25 16:44 22 100 02/22/25 16:43 112 H 22 02/22/25 16:42 193/133 H 02/22/25 16:34 177/122 H 02/22/25 16:30 147/109 H 02/22/25 16:28 145/103 H 02/22/25 16:22 105/74 L 02/22/25 16:19 96/68 L 02/22/25 16:17 101/71 L 02/22/25 16:14 155/89 H 02/22/25 16:13 145/90 H 02/22/25 15:00 111 H 19 121/70 98 02/22/25 14:38 02/22/25 13:30 121 H 23 116/80 97 02/22/25 13:21 02/22/25 13:00 117 H 24 130/76 97 02/22/25 12:48 116 H 02/22/25 12:48 118 H 02/22/25 12:30 120 H 16 120/92 H 99 02/22/25 12:26 119 H 131/79 02/22/25 12:25 97.8 F 117 H 26 H 131/79 97 O2 Del Method O2 Flow Rate FiO2 02/23/25 07:00 02/23/25 06:53 Mechanical Ventilation 02/23/25 06:45 02/23/25 06:39 02/23/25 06:39 02/23/25 06:39 30 02/23/25 06:38 02/23/25 06:30 02/23/25 06:00 Mechanical Ventilation 30 02/23/25 05:00 Mechanical Ventilation 02/23/25 05:00 Mechanical Ventilation 02/23/25 04:15 02/23/25 04:00 02/23/25 04:00 02/23/25 04:00 Mechanical Ventilation 02/23/25 03:45 02/23/25 03:30 02/23/25 03:15 02/23/25 03:00 02/23/25 03:00 Mechanical Ventilation 02/23/25 02:47 30 02/23/25 02:45 02/23/25 02:30 02/23/25 02:15 02/23/25 02:00 35 02/23/25 02:00 02/23/25 01:45 02/23/25 01:30 02/23/25 01:18 02/23/25 01:18 02/23/25 01:15 02/23/25 01:00 02/23/25 01:00 Mechanical Ventilation 02/23/25 00:45 02/23/25 00:40 35 02/23/25 00:30 02/23/25 00:15 02/23/25 00:00 Mechanical Ventilation 35 02/23/25 00:00 Mechanical Ventilation 35 02/23/25 00:00 Mechanical Ventilation 35 02/23/25 00:00 02/22/25 23:30 02/22/25 23:15 02/22/25 23:00 Mechanical Ventilation 02/22/25 23:00 02/22/25 22:56 02/22/25 22:56 02/22/25 22:45 02/22/25 22:30 02/22/25 22:15 02/22/25 22:00 35 02/22/25 22:00 Mechanical Ventilation 35 02/22/25 21:00 Mechanical Ventilation 02/22/25 21:00 Mechanical Ventilation 35 02/22/25 20:50 35 02/22/25 20:00 02/22/25 20:00 Mechanical Ventilation 35 02/22/25 20:00 Mechanical Ventilation 02/22/25 19:00 Mechanical Ventilation 02/22/25 19:00 Mechanical Ventilation 02/22/25 18:45 Mechanical Ventilation 02/22/25 18:41 Mechanical Ventilation 02/22/25 18:17 02/22/25 18:14 Mechanical Ventilation 02/22/25 18:14 Mechanical Ventilation 02/22/25 18:12 Mechanical Ventilation 35 02/22/25 18:12 02/22/25 18:12 02/22/25 18:12 Mechanical Ventilation 35 02/22/25 18:12 35 02/22/25 18:00 02/22/25 17:50 Mechanical Ventilation 02/22/25 17:45 02/22/25 17:43 02/22/25 17:27 02/22/25 17:15 02/22/25 17:09 02/22/25 17:00 02/22/25 16:52 02/22/25 16:45 02/22/25 16:44 02/22/25 16:43 02/22/25 16:42 02/22/25 16:34 02/22/25 16:30 02/22/25 16:28 02/22/25 16:22 02/22/25 16:19 02/22/25 16:17 02/22/25 16:14 02/22/25 16:13 02/22/25 15:00 02/22/25 14:38 30 02/22/25 13:30 Nasal Cannula 4 02/22/25 13:21 30 02/22/25 13:00 Nasal Cannula 4 02/22/25 12:48 02/22/25 12:48 02/22/25 12:30 Nasal Cannula 4 02/22/25 12:26 Nasal Cannula 4 02/22/25 12:25 Nasal Cannula 4 Intake and Output 02/22/25 02/23/25 02/23/25 23:59 07:59 15:59 Intake Total 1324.218 / 2424.218 80.041 / 168.262 88.221 / 168.262 Output Total 340 / 350 170 / 170 Balance 984.218 / 2074.218 -89.959 / -1.738 88.221 / -1.738 Intake: Intake, Total IV Amount 1324.218 / 2424.218 80.041 / 168.262 88.221 / 168.262 0.9 % Sodium Chloride 1000ML 1, 999 / 999 0 / 0 000 ml @ 999 mls/hr IV .Q1H1M ONE Rx#:[id number] Fentanyl Citrate/Pf 1,000 mcg 35.708 / 35.708 In 0.9 % Sodium Chloride 80 ml @ 25 MCG/HR 2.5 mls/hr IV .Q24H [facility] Rx#:[id number] Vancomycin/Water For Inj (Peg) 250 / 250 1.25 gm In 250 ml @ 125 mls/hr IV ONCE ONE Rx#:[id number] propofoL 100 ml @ 5 MCG/KG/MIN 75.218 / 75.218 80.041 / 132.554 52.513 / 132.554 2.313 mls/hr IV .Q24H [facility] Rx#: [id number] Output: Output, Urine Amount 320 / 320 Output, Urine Amount (Catheter) 20 / 30 170 / 170 Maldonado 20 / 30 170 / 170 Other: Number of Unmeasured Voids 0 Weight 82.7 kg 83 kg Patient Weight 02/23/25 23:59 Weight 83 kg Laboratory Results - last 24 hr 02/22/25 13:08: VBG pH 7.17 L, VBG pCO2 141.7 H, VBG pO2 29.2, VBG HCO3 50.6 H, VBG Total CO2 55.0 H, VBG O2 Saturation 55.1, VBG Base Excess 22.1 H, VBG Lactic Acid 2.3 H 02/22/25 13:14: WBC 11.8 H, RBC 4.31 L, Hgb 12.5 L, Hct 42.5, MCV 98.6 H, MCH 29.0, MCHC 29.4 L, RDW 12.4, Plt Count 226, MPV 9.9, Neut % (Auto) 87.4 H, Lymph % (Auto) 4.9 L, [place] % (Auto) 5.2, Eos % (Auto) 0.3, Baso % (Auto) 0.3, Neut # (Auto) 10.3 H, Lymph # (Auto) 0.6 L, [place] # (Auto) 0.6, Eos # (Auto) 0.0, Baso # (Auto) 0.0, Sodium 138, Potassium 5.1, Chloride 86 L, Carbon Dioxide 48 H*, Anion Gap 9.1, BUN 21 H, Creatinine 1.00, Estimated Creat Clear 89, Estimated GFR 77, Est GFR ( Amer) 93, Glucose 160 H, Calcium 9.3, Magnesium 1.7, Total Bilirubin 1.2, AST 22, ALT 19, Alkaline Phosphatase 87, Troponin I 0.02, C-Reactive Protein 118.6 H, Total Protein 7.5, Albumin 3.7, Globulin 3.8 H, Albumin/Globulin Ratio 1.0 L 02/22/25 14:02: SARS-CoV-2 (PCR) Not detected, Influenza A Untype (PCR) Not detected, Influenza Type B (PCR) Not detected 02/22/25 14:30: VBG pH 7.17 L, VBG pCO2 140.7 H, VBG pO2 32.0, VBG HCO3 49.6 H, VBG Total CO2 53.9 H, VBG O2 Saturation 59.1, VBG Base Excess 21.0 H, VBG Lactic Acid 2.9 H 02/22/25 15:41: VBG pH 7.14 L, VBG pCO2 141.5 H, VBG pO2 36.2, VBG HCO3 47.0 H, VBG Total CO2 51.3 H, VBG O2 Saturation 64.3, VBG Base Excess 17.9 H, VBG Lactic Acid 3.0 H 02/22/25 16:36: Urine Color Yellow, Urine Appearance Clear, Urine pH 6.0, Ur Specific [place] >= 1.030, Urine Protein Trace, Urine Glucose (UA) Negative, Urine Ketones Negative, Urine Blood Negative, Urine Nitrate Negative, Urine Bilirubin Negative, Urine Urobilinogen 0.2, Ur Leukocyte Esterase Negative, Urine RBC Occasional, Urine WBC 3-5, Calcium Oxalate Crystal 1+, Urine Bacteria Trace, Hyaline Casts 3-5 02/22/25 16:40: Troponin I 0.04 H 02/22/25 17:20: Specimen Source lr, O2 % 35, ABG pH 7.33 L, ABG pCO2 74.5 H, ABG pO2 49.9 L, ABG HCO3 38.0 H, ABG Total CO2 40.2 H, ABG O2 Saturation 87 L*, ABG Base Excess 11.9 H, Vent Rate 22, Tidal Volume 440, PEEP 10 02/22/25 18:20: Lactate 3.5 H 02/22/25 18:21: Chlamy pneumoniae PCR Not detected, Adenovirus (PCR) Not de tected, B. pertussis DNA (PCR) Not detected, Coronavirus OC43 (PCR) Not detected, Coronavirus HKU1 (PCR) Not detected, Coronavirus 229E (PCR) Not detected, SARS-CoV-2 (PCR) Not detected, Coronavirus NL63 (PCR) Not detected, Human Metapneumovir PCR Not detected, Influenza A (H1) PCR Not detected, Influ A (H1N1/09) PCR Not detected, Influenza A (H3) PCR Not detected, Influenza Type A (PCR) Not detected, Influenza Type B (PCR) Not detected, M. pneumoniae (PCR) Not detected, Parainfluenza 1 (PCR) Not detected, Parainfluenza 2 (PCR) Not detected, Parainfluenza 3 (PCR) Not detected, Parainfluenza 4 (PCR) Not detected, RSV (PCR) Not detected, Entero/Rhino (PCR) Not detected 02/22/25 19:51: POC Glucose 179 H 02/22/25 20:30: Lactate 2.5 H 02/23/25 05:09: WBC 7.8 D, RBC 3.51 L, Hgb 10.0 L D, Hct 33.3 L, MCV 94.9 H, MCH 28.5, MCHC 30.0 L, RDW 12.5, Plt Count 215, MPV 10.8 H, Neut % (Auto) 78.0, Lymph % (Auto) 10.9, [place] % (Auto) 10.2 H, Eos % (Auto) 0.0 L, Baso % (Auto) 0.1, Neut # (Auto) 6.1, Lymph # (Auto) 0.9, [place] # (Auto) 0.8, Eos # (Auto) 0.0, Baso # (Auto) 0.0, VBG pH 7.49 H, VBG pCO2 48.6, VBG pO2 71.1 H, VBG HCO3 36.3 H , VBG Total CO2 37.8 H, VBG O2 Saturation 95.8 H, VBG Base Excess 13.0 H, VBG Lactic Acid 2.0, Sodium 138, Potassium 4.6, Chloride 94 L, Carbon Dioxide 42 H*, Anion Gap 6.6, BUN 30 H D, Creatinine 1.20, Estimated Creat Clear 79, Estimated GFR 62, Est GFR ( Amer) 76, Glucose 126 H D, Calcium 8.7, Total Bilirubin 0.5, AST 18, ALT 16, Alkaline Phosphatase 70, Total Protein 6.0 L, Albumin 3.5 I & O for Labs for Last 24 Hours: Intake & Output 02/20/25 02/21/25 02/22/25 02/23/25 23:59 22:59 23:59 23:59 Intake Total 2424.218 / 2424.218 168.262 / 168.262 Output Total 340 / 350 170 / 170 Balance 2084.218 / 2074.218 -1.738 / -1.738 Weight 82.7 kg 83 kg Constitutional: Present no acute distress, average body habitus and chronically ill appearing Head: Present atraumatic Comment:: ET tube and NG in place Neck: Present normal inspection Respiratory: Present patient mechanically ventilated, wheezes, distant breath sounds and diminished air movement Cardiac: Present Regular Rate and Tachycardia GI: Present soft and hypoactive bowel sounds; Absent distention Rectal (male): Present deferred (male): Present deferred Comment:: Maldonado catheter in place Extremities: Present normal inspection; Absent edema Skin: Present intact and dry; Absent rash Comment:: Sedated Assessment and Plan *Assessment and plan (1) Acute exacerbation of chronic obstructive pulmonary disease: Status: Acute Category: Medical Code(s): J44.1 - Chronic obstructive pulmonary disease with (acute) exacerbation (2) COPD (chronic obstructive pulmonary disease) with emphysema: Status: Acute Category: Medical Code(s): J43.9 - Emphysema, unspecified (3) Acute respiratory failure with hypoxia and hypercarbia: Status: Acute Category: Medical Code(s): J96.01 - Acute respiratory failure with hypoxia; J96.02 - Acute respiratory failure with hypercapnia (4) Tobacco dependence: Status: Acute Category: Medical Code(s): F17.200 - Nicotine dependence, unspecified, uncomplicated Plan Mr. Lima is a 59-year-old male with a primary medical history of COPD with baseline continuous 4 L nasal cannula, recurrent hypercapnic respiratory failure, hypertension, hyperlipidemia, CAD, and tobacco dependence. He presented to the emergency department today with complaints of shortness of breath for the last 3 to 4 days. VBG was obtained and showed critically elevated CO2 of 141 with respiratory acidosis pH 7.17. Patient was placed on BiPAP and monitored for improvement, serial VBG's obtained in the ED which were grossly unchanged. Additional workup was significant for mild leukocytosis of 11.8, BUN 21, creatinine 1.00. Carbon dioxide of 48 and chloride of 86. CRP elevated at 118, Pro-Elias pending. I was consulted by the emergency department for admission, I agreed to admit the patient to the ICU. Plan of care as foll ows: #Acute on chronic hypercapnic respiratory failure #Acute COPD exacerbation with emphysema ? Patient was admitted to the ICU tolerating BiPAP but CO2 level on VBG unchanged after 3 hours. Decision was made by pulmonology to proceed with intubation. Patient was intubated and repeat EKG showed improvement in blood gas with a decrease in pCO2 from 140-75, and a pH improvement to 7.32. Patient had noted neutrophilic predominant leukocytosis, but remained hemodynamically stable and afebrile. WBC 7.8 today. Continue monitoring of patient's VBG management of ventilator per pulmonology. ? Blood cultures and sputum culture currently pending. Currently receiving Levaquin 7 and 50 mg daily. Respiratory panel negative ? Patient received broad-spectrum antibiotic coverage in the ED vancomycin and ceftriaxone. Patient was admitted in September 2024 and sputum culture grew Klebsiella and stenotrophomonas sensitive to levaquin. - Pulmonolgy consulted, apprecite their continued recommendations. ? SBT attempted this morning, patient had worsening hypercarbic respiratory failure with a pCO2 of 73.5. Chest x-ray repeated this morning shows worsening bilateral pulmonary infiltrates. Continue with DuoNebs every 4 hours, Pulmicort every 12 hours scheduled. ? Patient currently receiving methylprednisolone 40 mg every 12 hours. ? Patient has had little urinary output overnight, if less than 15 mL/hour. Will initiate NS at 125 mL/H for hydration. ?CBC, CMP, magnesium ordered for the a.m. Full code VTE?Lovenox 40 mg subcu daily Mechanically ventilated N.p.o.
--- NOTE | 2025-02-23 08:41 | PC.NURSE ---
Margot Garrison APRN at bedside
[2025-02-23 08:52] LABS: Albumin Level 3.5 g/dl (3.5-5.0); Albumin/Globulin Ratio 1.4 (1.1-1.8); Globulin 2.5 g/dL (1.3-3.2)
--- NOTE | 2025-02-23 09:14 | PC.NURSE ---
per rt pt is in sbt peep 5
--- NOTE | 2025-02-23 09:23 | PC.NURSE ---
RESP CARE NOTE: Pt placed in SBT per Dr Ng verbal order at 5/5 cmH2O and FIO2 at 40%.
--- NOTE | 2025-02-23 09:25 | XR_ITS ---
FINAL REPORT CLINICAL HISTORY: abd tenderness FINDINGS: A single supine view of the abdomen was obtained. There is an NG tube in the stomach. There is a possible hiatal hernia. The bowel gas pattern is nonspecific but nonobstructive. Pelvic calcifications are favored to represent phleboliths. Osseous structures are within normal limits. IMPRESSION: Nonspecific but nonobstructive bowel gas pattern. NG tube in the stomach. Reviewed, Interpreted and Dictated by Zhanna May MD Transcribed by Eleanor Smith Authenticated and [facility]
--- NOTE | 2025-02-23 09:26 | PC.NURSE ---
dr curtis at bedside
--- NOTE | 2025-02-23 09:50 | EXP.PULM.PN ---
Subjective *Date: 02/23/25 *Time: 12:13 Interval history: Continue to remain on mechanical ventilatory support Pulmonology Exam Inpatient Vital signs and Labs for Last 24 Hours: Temp Pulse Resp BP Pulse Ox O2 Del Method O2 Flow Rate 99.9 F H 122 H 17 137/92 H 94 L Mechanical Ventilation 4 02/23/25 08:45 02/23/25 09:44 02/23/25 09:44 02/23/25 08:45 02/23/25 09:44 02/23/25 09:10 02/22/25 13:30 FiO2 40 02/23/25 09:44 Laboratory Results - last 24 hr 02/22/25 13:08: VBG pH 7.17 L, VBG pCO2 141.7 H, VBG pO2 29.2, VBG HCO3 50.6 H, VBG Total CO2 55.0 H, VBG O2 Saturation 55.1, VBG Base Excess 22.1 H, VBG Lactic Acid 2.3 H 02/22/25 13:14: WBC 11.8 H, RBC 4.31 L, Hgb 12.5 L, Hct 42.5, MCV 98.6 H, MCH 29.0, MCHC 29.4 L, RDW 12.4, Plt Count 226, MPV 9.9, Neut % (Auto) 87.4 H, Lymph % (Auto) 4.9 L, [place] % (Auto) 5.2, Eos % (Auto) 0.3, Baso % (Auto) 0.3, Neut # (Auto) 10.3 H, Lymph # (Auto) 0.6 L, [place] # (Auto) 0.6, Eos # (Auto) 0.0, Baso # (Auto) 0.0, Sodium 138, Potassium 5.1, Chloride 86 L, Carbon Dioxide 48 H*, Anion Gap 9.1, BUN 21 H, Creatinine 1.00, Estimated Creat Clear 89, Estimated GFR 77, Est GFR ( Amer) 93, Glucose 160 H, Calcium 9.3, Magnesium 1.7, Total Bilirubin 1.2, AST 22, ALT 19, Alkaline Phosphatase 87, Troponin I 0.02, C-Reactive Protein 118.6 H, Total Protein 7.5, Albumin 3.7, Globulin 3.8 H, Albumin/Globulin Ratio 1.0 L 02/22/25 14:02: SARS-CoV-2 (PCR) Not detected, Influenza A Untype (PCR) Not detected, Influenza Type B (PCR) Not detected 02/22/25 14:30: VBG pH 7.17 L, VBG pCO2 140.7 H, VBG pO2 32.0, VBG HCO3 49.6 H, VBG Total CO2 53.9 H, VBG O2 Saturation 59.1, VBG Base Excess 21.0 H, VBG Lactic Acid 2.9 H 02/22/25 15:41: VBG pH 7.14 L, VBG pCO2 141.5 H, VBG pO2 36.2, VBG HCO3 47.0 H, VBG Total CO2 51.3 H, VBG O2 Saturation 64.3, VBG Base Excess 17.9 H, VBG Lactic Acid 3.0 H 02/22/25 16:36: Urine Color Yellow, Urine Appearance Clear, Urine pH 6.0, Ur Specific [place] >= 1.030, Urine Protein Trace, Urine Glucose (UA) Negative, Urine Ketones Negative, Urine Blood Negative, Urine Nitrate Negative, Urine Bilirubin Negative, Urine Urobilinogen 0.2, Ur Leukocyte Esterase Negative, Urine RBC Occasional, Urine WBC 3-5, Calcium Oxalate Crystal 1+, Urine Bacteria Trace, Hyaline Casts 3-5 02/22/25 16:40: Troponin I 0.04 H 02/22/25 17:20: Specimen Source lr, O2 % 35, ABG pH 7.33 L, ABG pCO2 74.5 H, ABG pO2 49.9 L, ABG HCO3 38.0 H, ABG Total CO2 40.2 H, ABG O2 Saturation 87 L*, ABG Base Excess 11.9 H, Vent Rate 22, Tidal Volume 440, PEEP 10 02/22/25 18:20: Lactate 3.5 H 02/22/25 18:21: Chlamy pneumoniae PCR Not detected, Adenovirus (PCR) Not detected, B. pertussis DNA (PCR) Not detected, Coronavirus OC43 (PCR) Not detected, Coronavirus HKU1 (PCR) Not detected, Coronavirus 229E (PCR) Not detected, SARS-CoV-2 (PCR) Not detected, Coronavirus NL63 (PCR) Not detected, Human Metapneumovir PCR Not detected, Influenza A (H1) PCR Not detected, Influ A (H1N1/09) PCR Not detected, Influenza A (H3) PCR Not detected, Influenza Type A (PCR) Not detected, Influenza Type B (PCR) Not detected, M. pneumoniae (PCR) Not detected, Parainfluenza 1 (PCR) Not detected, Parainfluenza 2 (PCR) Not detected, Parainfluenza 3 (PCR) Not detected, Parainfluenza 4 (PCR) Not detected, RSV (PCR) Not detected, Entero/Rhino (PCR) Not detected 02/22/25 19:51: POC Glucose 179 H 02/22/25 20:30: Lactate 2.5 H 02/23/25 05:09: WBC 7.8 D, RBC 3.51 L, Hgb 10.0 L D, Hct 33.3 L, MCV 94.9 H, MCH 28.5, MCHC 30.0 L, RDW 12.5, Plt Count 215, MPV 10.8 H, Neut % (Auto) 78.0, Lymph % (Auto) 10.9, [place] % (Auto) 10.2 H, Eos % (Auto) 0.0 L, Baso % (Auto) 0.1, Neut # (Auto) 6.1, Lymph # (Auto) 0.9, [place] # (Auto) 0.8, Eos # (Auto) 0.0, Baso # (Auto) 0.0, VBG pH 7.49 H, VBG pCO2 48.6, VBG pO2 71.1 H, VBG HCO3 36.3 H, VBG Total CO2 37.8 H, VBG O2 Saturation 95.8 H, VBG Base Excess 13.0 H, VBG Lactic Acid 2.0, Sodium 138, Potassium 4.6, Chloride 94 L, Carbon Dioxide 42 H*, Anion Gap 6.6, BUN 30 H D, Creatinine 1.20, Estimated Creat Clear 79, Estimated GFR 62, Est GFR ( Amer) 76, Glucose 126 H D, Calcium 8.7, Total Bilirubin 0.5, AST 18, ALT 16, Alkaline Phosphatase 70, Total Protein 6.0 L, Albumin 3.5, Globulin 2.5, Albumin/Globulin Ratio 1.4 I & O for Labs for Last 24 Hours: Intake & Output 02/20/25 02/21/25 02/22/25 02/23/25 23:59 22:59 23:59 23:59 Intake Total 2424.218 / 2424.218 179.392 / 179.392 Output Total 340 / 350 230 / 230 Balance 2084.218 / 2074.218 -50.608 / -50.608 Weight 182 lb 5.156 oz 182 lb 15.739 oz Constitutional: Present severe distress Comment:: Intubated and Sedated Head: Present normocephalic and atraumatic Neck: Present normal inspection and trachea midline Respiratory: Present patient mechanically ventilated, prolonged expiratory phase, rhonchi and wheezes Cardiac: Present S1/S2 and Tachycardia GI: Present soft; Absent distention or tenderness Skin: Present intact; Absent cyanosis Neuro: Present awake Comment:: Intubated and sedated Extremities: Present normal inspection; Absent clubbing or cyanosis Psychiatric: Present unable to assess Assessment and Plan *Assessment and plan (1) Acute exacerbation of chronic obstructive pulmonary disease: Status: Acute Category: Medical Code(s): J44.1 - Chronic obstructive pulmonary disease with (acute) exacerbation (2) Acute respiratory failure with hypoxia and hypercarbia: Status: Acute Category: Medical Code(s): J96.01 - Acute respiratory failure with hypoxia; J96.02 - Acute respiratory failure with hypercapnia Plan Mr. Lima is a 59-year-old male greater than [id number] smoker history of COPD chronic hypoxic respiratory failure recurrent pneumonia multiple pulmonary nodules presented to the ER with worsening respiratory distress altered mentation pulmonary was called for further evaluation and management. Patient admits worsening respiratory distress but denies any worsening cough or change in sputum color. Neutrophilic predominant leukocytosis. Afebrile. Hemodynamically stable. Chest x-ray upon admission bilateral patchy airspace disease. Blood gas upon admission severe hypercarbic respiratory failure with a pH of 7.47 and pCO2 141.7 with no significant improvement on his blood gas despite oxygen ambulation therapies and noninvasive ventilatory therapy with repeat blood gas continue to show pH of 7.14 and pCO2 141.5. Despite patient's ability to appropriately respond to verbal commands his waxing and waning mental status is concerning at this point of time. Interval update: Status post intubation with significant improvement in the noted hypercarbic respiratory failure. Low-grade fever with a Tmax of 100.0. Continue to receive levofloxacin pending tracheal aspirate culture results. Methylprednisolone 40 mg every 12 hours along with DuoNebs every 4 and Pulmicort every 12 hrs Plan: Continue mechanical ventilator support at PEEP of 5 FiO2 of 50% tidal volume of 440 on rate of 20. Failed SBT with worsening hypercarbic respiratory failure with a pH of 7.32 and pCO2 73.5, is unlikely that patient will tolerate noninvasive ventilatory therapy at this point of time if extubated. Will continue nebulization therapies and steroids. Chest x-ray from this morning personal interpretation, worsening bilateral pulmonary infiltrates. ET tube in place. DuoNebs every 4 hours along with Pulmicort every 12 scheduled Continue methylprednisone 40 mg every 12 Continue levofloxacin pending tracheal aspirate culture results. Follow with final blood culture results - Continue AnalgoSedation with Propofol and Fentanyl with CPOT gal less than or euqal to 2 and RASS goal of to 2 (No need for deep sedation) - VAP bundle Recommend elevate head of the bed at 30 to 45 degrees Recommend oral care with chlorhexidne Recommend GI ulcer prophylaxis - Famotidine 20mg IV BID Recommend chemical DVT prophylaxis Total critical care time spent on this patient is 35 minutes managing acute hypoxic respiratory failure BiPAP therapy. This time spent include reviewing test results including interpreting chest x-rays, labs and arterial blood gas, optimizing the BiPAP settings,formulating plan of care, discussing the plan of care with the team and the nursing staff.
--- NOTE | 2025-02-23 09:51 | XR_ITS ---
FINAL REPORT TECHNIQUE: Single view chest CLINICAL HISTORY: Mechanical ventilation COMPARISON: 02/22/2025 FINDINGS: A single view of the chest was obtained. ET tube is unchanged. NG tube is not visualized below the mid esophagus. Heart size is stable. There are bilateral interstitial opacities, similar to prior exam. There has been interval worsening of bibasilar airspace opacities which may represent atelectasis or pneumonia. There are emphysematous changes. There is no pneumothorax. IMPRESSION: Interval worsening bibasilar airspace opacities which may present atelectasis or pneumonia. Reviewed, Interpreted and Dictated by Zhanna May MD Transcribed by Eleanor Smith Authenticated and [facility]
--- NOTE | 2025-02-23 10:10 | PC.NURSE ---
portable xray at bedside
[2025-02-23 10:40] LABS: Lactate Venous 1.4 mmol/L (0.4-2.0); VBG HCO3 37.1 mmol/L (23-30); VBG PCO2 73.5 mmol/L (35-51); VBG PH 7.32 mmol/L (7.31-7.41); VBG PO2 86.2 mmol/L (28-40)
--- NOTE | 2025-02-23 11:01 | PC.NURSE ---
per dr gil hold off on extubation
[2025-02-23] MEDS: 0.9 % SODIUM CHLORIDE 1000ML 1,000 ML 125 ML IV ×2 (11:13→19:19)
[2025-02-23 11:26] LABS: POC Glucose,Bedside 104 gm/dL (70-110)
[2025-02-23 12:51] LABS: Procalcitonin 0.360 ng/mL (0.0-2.0)
--- NOTE | 2025-02-23 13:15 | PC.NURSE ---
pt out of restraints at this time. mittens in place at this time. pt isn't as agitated and grabbing at things like he was this morning.
[2025-02-23 16:39] LABS: POC Glucose,Bedside 124 gm/dL (70-110)
[2025-02-23 19:52] LABS: POC Glucose,Bedside 121 gm/dL (70-110)
[2025-02-23] MEDS: PANTOPRAZOLE 40MG VIAL 40 MG IV (20:06)
[2025-02-24] VITALS (72 sets, daily range): BP systolic 103–204; BP diastolic 63–117; PULSE 44–144; RESP 7–37; TEMP 36.5–37.5; O2SAT 91–100; BMI 25.7
[2025-02-24] MEDS: IPRATROPIUM/ALBUTEROL 3 ML NEB IH ×6 (01:55→22:49)
[2025-02-24] MEDS: 0.9 % SODIUM CHLORIDE 1000ML 1,000 ML 125 ML IV ×3 (02:03→19:30)
[2025-02-24] MEDS: BUDESONIDE 0.5MG/2ML NEB 0.5 MG IH ×2 (06:04→18:12)
[2025-02-24 06:09] LABS: POC Glucose,Bedside 124 gm/dL (70-110)
[2025-02-24 06:14] LABS: Hematocrit 29.7 % (42.0-52.0); Hemoglobin 9.3 g/dL (14.1-18.0); Immature Granulocytes % 0.8 %; Mean Corpuscular HGB Conc 31.3 g/dL (31.8-35.4); Mean Corpuscular Hemoglobin 29.2 pg (27.0-31.2); Mean Corpuscular Volume 93.1 fl (80-94); Nucleated Red Blood Cells % 0 %; Platelet Count 220 K/mm3 (142-424); Red Blood Count 3.19 M/mm3 (4.60-6.20); Red Cell Distribution Width-SD 43.3 fL; White Blood Count 10.7 K/mm3 (4.8-10.8)
[2025-02-24 06:22] LABS: Albumin Level 3.4 g/dl (3.5-5.0); Chloride 96 mmol/L (98-107); Sodium 138 mmol/L (136-145)
[2025-02-24 06:23] LABS: Potassium 4.1 mmoL/L (3.5-5.1)
[2025-02-24 06:25] LABS: Alanine Aminotransferase 14 U/L (12-78); Albumin/Globulin Ratio 1.5 (1.1-1.8); Alkaline Phosphatase 64 U/L (38-126); Aspartate Amino Transferase 31 U/L (17-59); Bilirubin,Total 0.4 mg/dl (0.2-1.3); Blood Urea Nitrogen 28 mg/dl (9-20); Carbon Dioxide 37 mmol/L (22.0-30.0); Creatinine Clearance Estimated 96 mL/min (50-200); Creatinine,Serum 1.00 mg/dl (0.66-1.25); Estimated Glomerular Filt Rate 77 ml/min (>60); GFR (African American) 93 ML/MIN (>60); Globulin 2.3 g/dL (1.3-3.2); Total Protein,Serum 5.7 g/dl (6.3-8.2)
[2025-02-24 06:26] LABS: Calcium 8.7 mg/dl (8.4-10.2); Glucose 110 mg/dl (74-100)
[2025-02-24 06:42] LABS: Anion Gap 9.1 mEq/L (5-15)
[2025-02-24 07:05] LABS: Total Cells Counted 100
[2025-02-24 07:06] LABS: RBC Morphology Normal
[2025-02-24] MEDS: FENTANYL CITRATE/PF 1,000 MCG in 0.9 % SODIUM CHLORIDE 80 ML 2.5 MCG IV (08:00)
[2025-02-24] MEDS: LEVOFLOXACIN/D5W 750 MG/150 ML 750 MG/150 ML PIGGYBACK 100 MG IV (08:04)
[2025-02-24] MEDS: METHYLPREDNISOLONE SOD SUCC 40MG VIAL 40 MG IV ×2 (08:04→20:28)
--- NOTE | 2025-02-24 09:22 | P.PN_ITS ---
<Statement entered by Phu Redd MD - 02/27/25 14:18> Agree with the plan of care as outlined by the STATUS CONTROLLER. Subjective *Date: 02/24/25 *Time: 16:36 Interval history: Patient is doing well this morning. SBT went well, patient extubated and placed on BiPAP. Patient tolerating BiPAP without issues. Medical Exam Vital signs and Labs for Last 24 Hours: Vital Signs Temp Pulse Pulse Resp BP Pulse Ox O2 Del Method 02/24/25 07:30 97.7 F 73 16 123/84 96 Mechanical Ventilation 02/24/25 07:25 85 96 Mechanical Ventilation 02/24/25 07:15 Mechanical Ventilation 02/24/25 07:00 97.9 F 71 14 114/80 95 Mechanical Ventilation 02/24/25 06:45 97.7 F 70 7 L 121/83 95 02/24/25 06:30 97.7 F 68 20 121/85 100 02/24/25 06:15 97.7 F 75 20 135/95 H 100 02/24/25 06:05 92 H 02/24/25 06:05 91 H 02/24/25 06:05 20 96 02/24/25 06:00 97.7 F 74 11 L 126/85 96 02/24/25 05:45 97.7 F 71 20 104/72 L 97 02/24/25 05:30 97.7 F 44 L 20 108/73 L 97 02/24/25 05:15 97.7 F 118/84 02/24/25 05:00 97.7 F 75 21 111/78 97 02/24/25 05:00 Mechanical Ventilation 02/24/25 04:45 97.7 F 77 20 128/83 95 02/24/25 04:30 97.7 F 88 20 136/93 H 92 L 02/24/25 04:15 97.7 F 75 21 111/72 95 02/24/25 04:00 80 02/24/25 04:00 97.7 F 71 20 103/73 L 96 02/24/25 04:00 96 Mechanical Ventilation 02/24/25 03:45 97.7 F 73 20 106/74 L 97 02/24/25 03:30 97.7 F 88 16 124/89 96 02/24/25 03:15 97.7 F 77 20 109/73 L 96 02/24/25 03:00 97.9 F 83 20 118/78 95 02/24/25 03:00 Mechanical Ventilation 02/24/25 02:45 97.9 F 79 20 115/84 97 02/24/25 02:30 98.1 F 86 21 123/83 96 02/24/25 02:15 97.9 F 90 20 126/89 97 02/24/25 02:00 97.9 F 92 H 20 133/91 H 99 02/24/25 01:57 89 02/24/25 01:57 89 02/24/25 01:57 20 95 02/24/25 01:45 97.9 F 84 13 123/82 96 02/24/25 01:30 97.9 F 82 20 111/77 94 L 02/24/25 01:15 98.1 F 87 15 123/83 95 02/24/25 01:00 98.1 F 71 20 107/74 L 94 L 02/24/25 01:00 Mechanical Ventilation 02/24/25 00:45 98.1 F 72 20 105/71 L 95 02/24/25 00:30 98.1 F 71 20 106/73 L 94 L 02/24/25 00:15 98.1 F 73 19 107/75 L 95 02/24/25 00:00 95 Mechanical Ventilation 02/24/25 00:00 98.1 F 71 20 108/74 L 94 L 02/24/25 00:00 70 02/24/25 00:00 95 Mechanical Ventilation 02/23/25 23:45 98.2 F 73 20 107/72 L 94 L 02/23/25 23:30 98.2 F 85 20 110/73 94 L 02/23/25 23:19 20 94 L 02/23/25 23:15 98.2 F 86 20 108/73 L 94 L 02/23/25 23:00 98.2 F 85 20 111/74 93 L 02/23/25 23:00 Mechanical Ventilation 02/23/25 22:45 98.4 F 89 15 113/77 94 L 02/23/25 22:30 98.4 F 90 20 123/82 93 L 02/23/25 22:15 98.4 F 95 H 20 126/92 H 94 L 02/23/25 22:00 98.4 F 95 H 17 129/95 H 93 L 02/23/25 21:45 98.4 F 90 18 118/77 95 02/23/25 21:30 98.6 F 94 H 20 128/87 97 02/23/25 21:22 96 H 02/23/25 21:22 94 H 02/23/25 21:22 20 99 02/23/25 21:15 98.6 F 93 H 22 113/79 99 02/23/25 21:00 98.6 F 97 H 22 119/80 98 02/23/25 21:00 Mechanical Ventilation 02/23/25 20:45 98.6 F 103 H 16 122/84 98 02/23/25 20:31 22 99 02/23/25 20:30 98.6 F 105 H 22 131/85 99 02/23/25 20:15 98.6 F 102 H 16 124/85 98 02/23/25 20:00 90 02/23/25 20:00 98.6 F 101 H 22 126/89 98 02/23/25 20:00 99 Mechanical Ventilation 02/23/25 19:45 98.6 F 21 109/74 L 02/23/25 19:30 98.6 F 103 H 22 103/71 L 99 02/23/25 19:15 98.8 F 101 H 22 107/73 L 99 02/23/25 19:00 99.0 F 104 H 22 108/72 L 99 Mechanical Ventilation 02/23/25 19:00 Mechanical Ventilation 02/23/25 18:30 99.0 F 102 H 22 116/85 100 Mechanical Ventilation 02/23/25 18:16 100 H 02/23/25 18:16 100 H 02/23/25 18:16 99 Mechanical Ventilation 02/23/25 18:16 22 99 02/23/25 18:00 99.0 F 101 H 16 121/93 H 99 Mechanical Ventilation 02/23/25 18:00 02/23/25 17:30 98.8 F 101 H 19 135/92 H 100 Mechanical Ventilation 02/23/25 17:14 Mechanical Ventilation 02/23/25 17:00 98.6 F 93 H 20 96/68 L 100 Mechanical Ventilation 02/23/25 16:30 98.8 F 94 H 22 94/66 L 99 Mechanical Ventilation 02/23/25 16:05 101 H 100 Mechanical Ventilation 02/23/25 16:00 92 H 02/23/25 16:00 99.0 F 99 H 22 97/68 L 100 Mechanical Ventilation 02/23/25 15:30 99.0 F 101 H 22 96/69 L 99 Mechanical Ventilation 02/23/25 15:20 Mechanical Ventilation 02/23/25 15:00 99.3 F 102 H 22 104/73 L 99 Mechanical Ventilation 02/23/25 14:30 99.5 F 107 H 22 121/83 99 Mechanical Ventilation 02/23/25 14:00 99.7 F H 111 H 22 126/93 H 100 Mechanical Ventilation 02/23/25 14:00 99 02/23/25 13:37 116 H 02/23/25 13:37 114 H 02/23/25 13:37 22 96 02/23/25 13:30 99.9 F H 109 H 22 113/77 100 Mechanical Ventilation 02/23/25 13:15 Mechanical Ventilation 02/23/25 13:00 99.5 F 101 H 18 132/93 H 95 Mechanical Ventilation 02/23/25 12:20 115 H 16 97 Mechanical Ventilation 02/23/25 12:01 99.3 F 115 H 23 159/97 H 97 Mechanical Ventilation 02/23/25 12:00 129 H 02/23/25 11:55 22 95 02/23/25 11:30 99.3 F 118 H 18 145/97 H 96 Mechanical Ventilation 02/23/25 11:21 Mechanical Ventilation 02/23/25 11:00 99.3 F 130 H 21 174/101 H 97 Mechanical Ventilation 02/23/25 10:30 99.5 F 124 H 22 205/109 H 95 Mechanical Ventilation 02/23/25 10:04 99.7 F H 131 H 21 182/108 H 97 Mechanical Ventilation 02/23/25 10:00 17 96 02/23/25 09:58 99.9 F H 128 H 18 175/105 H 98 Mechanical Ventilation 02/23/25 09:44 122 H 02/23/25 09:44 123 H 02/23/25 09:44 17 94 L 02/23/25 09:31 100 F H 120 H 16 166/102 H 99 Mechanical Ventilation FiO2 02/24/25 07:30 02/24/25 07:25 30 02/24/25 07:15 02/24/25 07:00 02/24/25 06:45 02/24/25 06:30 02/24/25 06:15 02/24/25 06:05 02/24/25 06:05 02/24/25 06:05 30 02/24/25 06:00 02/24/25 05:45 02/24/25 05:30 02/24/25 05:15 02/24/25 05:00 02/24/25 05:00 02/24/25 04:45 02/24/25 04:30 02/24/25 04:15 02/24/25 04:00 02/24/25 04:00 02/24/25 04:00 02/24/25 03:45 02/24/25 03:30 02/24/25 03:15 02/24/25 03:00 02/24/25 03:00 02/24/25 02:45 02/24/25 02:30 02/24/25 02:15 02/24/25 02:00 02/24/25 01:57 02/24/25 01:57 02/24/25 01:57 30 02/24/25 01:45 02/24/25 01:30 02/24/25 01:15 02/24/25 01:00 02/24/25 01:00 02/24/25 00:45 02/24/25 00:30 02/24/25 00:15 02/24/25 00:00 30 02/24/25 00:00 02/24/25 00:00 02/24/25 00:00 02/23/25 23:45 02/23/25 23:30 02/23/25 23:19 30 02/23/25 23:15 02/23/25 23:00 02/23/25 23:00 02/23/25 22:45 02/23/25 22:30 02/23/25 22:15 02/23/25 22:00 02/23/25 21:45 02/23/25 21:30 02/23/25 21:22 02/23/25 21:22 02/23/25 21:22 30 02/23/25 21:15 02/23/25 21:00 02/23/25 21:00 02/23/25 20:45 02/23/25 20:31 40 02/23/25 20:30 02/23/25 20:15 02/23/25 20:00 02/23/25 20:00 02/23/25 20:00 02/23/25 19:45 02/23/25 19:30 02/23/25 19:15 02/23/25 19:00 02/23/25 19:00 02/23/25 18:30 02/23/25 18:16 02/23/25 18:16 02/23/25 18:16 40 02/23/25 18:16 40 02/23/25 18:00 02/23/25 18:00 40 02/23/25 17:30 02/23/25 17:14 02/23/25 17:00 02/23/25 16:30 02/23/25 16:05 40 02/23/25 16:00 02/23/25 16:00 02/23/25 15:30 02/23/25 15:20 02/23/25 15:00 02/23/25 14:30 02/23/25 14:00 02/23/25 14:00 40 02/23/25 13:37 02/23/25 13:37 02/23/25 13:37 40 02/23/25 13:30 02/23/25 13:15 02/23/25 13:00 02/23/25 12:20 40 02/23/25 12:01 02/23/25 12:00 02/23/25 11:55 40 02/23/25 11:30 02/23/25 11:21 02/23/25 11:00 02/23/25 10:30 02/23/25 10:04 02/23/25 10:00 40 02/23/25 09:58 02/23/25 09:44 02/23/25 09:44 02/23/25 09:44 40 02/23/25 09:31 Intake and Output 02/23/25 02/24/25 02/24/25 23:59 07:59 15:59 Intake Total 829.684 / 1469.421 922.171 / 1055.228 133.057 / 1055.228 Output Total 459 / 969 350 / 350 Balance 370.684 / 500.421 572.171 / 705.228 133.057 / 705.228 Intake: Intake, Total IV Amount 829.684 / 1469.421 922.171 / 1055.228 133.057 / 1055.228 0.9 % Sodium Chloride 1000ML 1, 762.5 / 1000.0 841.667 / 841.667 000 ml @ 125 mls/hr IV .Q8H [facility] Rx#:[id number] Fentanyl Citrate/Pf 1,000 mcg 6.742 / 53.592 34.816 / 34.816 In 0.9 % Sodium Chloride 80 ml @ 20 MCG/HR 2 mls/hr IV .Q24H [facility] Rx#:[id number] propofoL 100 ml @ 5 MCG/KG/MIN 60.442 / 265.829 80.504 / 178.745 98.241 / 178.745 2.313 mls/hr IV .Q24H [facility] Rx#: [id number] Output: Output, Urine Amount 159 / 499 Output, Urine Amount (Catheter) 300 / 470 350 / 350 Maldonado 300 / 470 350 / 350 Other: Number of Unmeasured Voids 0 Weight 83.4 kg Patient Weight 02/24/25 23:59 Weight 83.4 kg Laboratory Results - last 24 hr 02/23/25 05:09: Procalcitonin 0.360 02/23/25 10:38: VBG pH 7.32, VBG pCO2 73.5 H, VBG pO2 86.2 H, VBG HCO3 37.1 H, VBG Total CO2 39.4 H, VBG O2 Saturation 95.8 H, VBG Base Excess 11.0 H, VBG Lactic Acid 1.4 02/23/25 11:18: POC Glucose 104 02/23/25 16:31: POC Glucose 124 H 02/23/25 19:43: POC Glucose 121 H 02/24/25 05:19: WBC 10.7 D, RBC 3.19 L, Hgb 9.3 L, Hct 29.7 L, MCV 93.1, MCH 29.2, MCHC 31.3 L, RDW 12.8, Plt Count 220, MPV 10.7 H, Neut % (Auto) 88.2 H, Lymph % (Auto) 4.4 L, Door % (Auto) 6.6, Eos % (Auto) 0.0 L, Baso % (Auto) 0.0 L , Neut # (Auto) 9.5 H, Lymph # (Auto) 0.5 L, Door # (Auto) 0.7, Eos # (Auto) 0.0, Baso # (Auto) 0.0, Total Counted 100, Neutrophils % (Manual) 89 H, Band Neutrophils % 3.0, Lymphocytes % (Manual) 4 L, Monocytes % (Manual) 4, Platelet Estimate Normal, RBC Morphology Normal, Sodium 138, Potassium 4.1, Chloride 96 L , Carbon Dioxide 37 H, Anion Gap 9.1, BUN 28 H, Creatinine 1.00, Estimated Creat Clear 96, Estimated GFR 77, Est GFR ( Amer) 93 D, Glucose 110 H, Calcium 8.7, Total Bilirubin 0.4, AST 31 D, ALT 14, Alkaline Phosphatase 64, Total Protein 5.7 L, Albumin 3.4 L, Globulin 2.3, Albumin/Globulin Ratio 1.5 02/24/25 05:59: POC Glucose 124 H I & O for Labs for Last 24 Hours: Intake & Output 02/21/25 02/22/25 02/23/25 02/24/25 22:59 23:59 23:59 23:59 Intake Total 2424.218 / 2424.218 1469.421 / 0669.377 5123.228 / 1055.228 Output Total 340 / 350 969 / 969 350 / 350 Balance 2084.218 / 2074.218 500.421 / 500.421 705.228 / 705.228 Weight 82.7 kg 83 kg 83.4 kg Microbiology Reports for the Last 24 Hours: Microbiology 02/22/25 13:15 Blood Blood Culture - Preliminary NO GROWTH AFTER 24 HOURS 02/22/25 13:30 Blood Blood Culture - Preliminary NO GROWTH AFTER 24 HOURS Constitutional: Present no acute distress, average body habitus and chronically ill appearing Head: Present atraumatic Neck: Present normal inspection Respiratory: Present wheezes, distant breath sounds and diminished air movement Cardiac: Present Regular Rate and Tachycardia GI: Present soft and hypoactive bowel sounds; Absent distention Rectal (male): Present deferred (male): Present deferred Comment:: Maldonado catheter in place Extremities: Present normal inspection; Absent edema Skin: Present intact and dry; Absent rash Comment:: Sedated Assessment and Plan *Assessment and plan (1) Acute exacerbation of chronic obstructive pulmonary disease: Status: Acute Category: Medical Code(s): J44.1 - Chronic obstructive pulmonary disease with (acute) exacerbation (2) COPD (chronic obstructive pulmonary disease) with emphysema: Status: Acute Category: Medical Code(s): J43.9 - Emphysema, unspecified (3) Acute respiratory failure with hypoxia and hypercarbia: Status: Acute Category: Medical Code(s): J96.01 - Acute respiratory failure with hypoxia; J96.02 - Acute respiratory failure with hypercapnia (4) Tobacco dependence: Status: Acute Category: Medical Code(s): F17.200 - Nicotine dependence, unspecified, uncomplicated Plan Mr. Lima is a 59-year-old male with a primary medical history of COPD with baseline continuous 4 L nasal cannula, recurrent hypercapnic respiratory failure, hypertension, hyperlipidemia, CAD, and tobacco dependence. He presented to the emergency department with complaints of shortness of breath over 3 to 4 days. VBG was obtained and showed critically elevated CO2 of 141 with respiratory acidosis pH 7.17. Patient was placed on BiPAP and monitored for improvement, serial VBG's obtained in the ED which were grossly unchanged. Additional workup was significant for mild leukocytosis of 11.8, BUN 21, creatinine 1.00. Carbon dioxide of 48 and chloride of 86. CRP elevated at 118, Pro-Elias pending. I was consulted by the emergency department for admission, I agreed to admit the patient to the ICU. Plan of care as follows: #Acute on chronic hypercapnic respiratory failure #Acute COPD exacerbation with emphysema ? Patient was admitted to the ICU tolerating BiPAP but CO2 level on VBG unchanged after 3 hours. Decision was made by pulmonology to proceed with intubation. Patient was intubated and repeat VBG showed improvement in blood gas with a decrease in pCO2 from 140-75, and a pH improvement to 7.32. Patient had noted neutrophilic predominant leukocytosis, but remained hemodynamically stable and afebrile. WBC 7.8 today. Continue monitoring of patient's VBG management of ventilator per pulmonology. Patient extubated this morning, 02/24/2025 and placed on BiPAP. Patient tolerating BiPAP without issues at this time. WBC stable at 10.7. Lab work reassuring, no electrolyte abnormalities, carbon dioxide down to 37 today. BUN 28, creatinine 1.00. ? Blood cultures show no growth after 24 hours and sputum culture shows gram- negative rods, Gram stain pending. Currently receiving Levaquin 750 mg daily. Respiratory panel negative. ? Patient received broad-spectrum antibiotic coverage in the ED vancomycin and ceftriaxone. Patient was admitted in September 2024 and sputum culture grew Klebsiella and stenotrophomonas sensitive to levaquin. - Pulmonolgy consulted, apprecite their continued recommendations. ? Continue with DuoNebs every 4 hours, Pulmicort every 12 hours scheduled. ? Patient currently receiving methylprednisolone 40 mg every 12 hours. NS at 125 mL/H for hydration. ? CBC, CMP, magnesium ordered for the a.m. Full code VTE?Lovenox 40 mg subcu daily BiPAP Advance as tolerated this afternoon
--- NOTE | 2025-02-24 09:30 | PC.NURSE ---
SBT started 5/5 30% with Tidal Volumes 450, Pt tolerating well at this time. ABG will be obtained in an hour per
--- NOTE | 2025-02-24 09:35 | PC.NURSE ---
rt at bedside starting sbt.
[2025-02-24 10:29] LABS: ABG HCO3 34.0 mmhg (22.0-26.0); ABG PH 7.37 mmol/L (7.35-7.45); ABG PO2 64.1 mmhg (80-100); ABG TCO2 35.8 mmhg (23-27)
[2025-02-24 10:32] LABS: PEEP 5; Source Left Radial
[2025-02-24 10:33] LABS: ABG PCO2 60.8 mmhg (35.0-45.0)
[2025-02-24 11:27] LABS: POC Glucose,Bedside 100 gm/dL (70-110)
--- NOTE | 2025-02-24 11:28 | PC.NURSE ---
rt at bedside. pt extubated and placed on bipap tolerating well.
--- NOTE | 2025-02-24 12:42 | ECG_ITS ---
APPROVED REPORT Exam: Resting ECG HR:111 bpm ECG Measurements Heart Rate 111 AXES UT 147 P 94 QRSd 90 QRS 93 QT 333 T 80 QTc 399 Conclusion SINUS TACHYCARDIA BORDERLINE RIGHT AXIS DEVIATION [QRS AXIS > 90] LOW QRS VOLTAGE IN EXTREMITY LEADS [QRS DEFLECTION < 0.5 mV IN LIMB LEADS] ST ELEVATION, CONSIDER INFERIOR INJURY [MARKED ST ELEVATION W/O NORMALLY INFLECTED T-WAVE IN II/aVF] ACUTE ID UNCONFIRMED REPORT Electronically signed by : Chandler Pacheco MD 02/25/2025 08:47:03
--- NOTE | 2025-02-24 12:45 | PC.NURSE ---
dr curtis at bedside
[2025-02-24 12:59] LABS: Troponin I 0.01 ng/ml (0.00-0.034)
[2025-02-24] MEDS: METOPROLOL TARTRATE 5MG/5ML VIAL 5 MG IV (13:21)
[2025-02-24] MEDS: diazePAM 10MG/2ML SYRINGE 5 MG IV ×2 (14:19→17:58)
--- NOTE | 2025-02-24 15:30 | PC.NURSE ---
lab at bedside collecting blood for vbg
[2025-02-24 15:40] LABS: Lactate Venous 0.9 mmol/L (0.4-2.0); VBG HCO3 32.4 mmol/L (23-30); VBG PCO2 44.0 mmol/L (35-51); VBG PH 7.49 mmol/L (7.31-7.41); VBG PO2 81.7 mmol/L (28-40)
[2025-02-24] MEDS: POLYETHYLENE GLYCOL 3350 17 GM PACKET PO (16:19)
--- NOTE | 2025-02-24 16:25 | PC.NURSE ---
Patient placed on 3L nasal cannula sats=94%
[2025-02-24] MEDS: ONDANSETRON 4MG/2ML VIAL 4 MG IV (16:30)
[2025-02-24] MEDS: NICOTINE 21MG/24HR PATCH 21 MG TD (16:30)
[2025-02-24 17:10] LABS: POC Glucose,Bedside 100 gm/dL (70-110)
[2025-02-24] MEDS: PANTOPRAZOLE 40MG VIAL 40 MG IV (20:28)
[2025-02-24 21:03] LABS: POC Glucose,Bedside 90 gm/dL (70-110)
[2025-02-25] VITALS (39 sets, daily range): BP systolic 87–147; BP diastolic 60–95; PULSE 55–115; RESP 15–26; TEMP 36.6–37.4; O2SAT 88–98; BMI 26.1
[2025-02-25] MEDS: IPRATROPIUM/ALBUTEROL 3 ML NEB IH ×6 (02:47→22:56)
[2025-02-25] MEDS: 0.9 % SODIUM CHLORIDE 1000ML 1,000 ML 125 ML IV (03:08)
[2025-02-25 05:41] LABS: Albumin Level 3.4 g/dl (3.5-5.0); Chloride 99 mmol/L (98-107); Potassium 4.7 mmoL/L (3.5-5.1); Sodium 140 mmol/L (136-145)
[2025-02-25 05:44] LABS: Alanine Aminotransferase 13 U/L (12-78); Albumin/Globulin Ratio 1.4 (1.1-1.8); Alkaline Phosphatase 55 U/L (38-126); Anion Gap 6.7 mEq/L (5-15); Aspartate Amino Transferase 33 U/L (17-59); Bilirubin,Total 0.7 mg/dl (0.2-1.3); Blood Urea Nitrogen 22 mg/dl (9-20); Carbon Dioxide 39 mmol/L (22.0-30.0); Creatinine Clearance Estimated 108 mL/min (50-200); Creatinine,Serum 0.90 mg/dl (0.66-1.25); Estimated Glomerular Filt Rate 87 ml/min (>60); GFR (African American) 105 ML/MIN (>60); Globulin 2.4 g/dL (1.3-3.2); Total Protein,Serum 5.8 g/dl (6.3-8.2)
[2025-02-25 05:45] LABS: Calcium 8.4 mg/dl (8.4-10.2); Glucose 86 mg/dl (74-100)
[2025-02-25 05:53] LABS: Hematocrit 32.4 % (42.0-52.0); Hemoglobin 9.4 g/dL (14.1-18.0); Immature Granulocytes % 0.8 %; Mean Corpuscular HGB Conc 29.0 g/dL (31.8-35.4); Mean Corpuscular Hemoglobin 28.1 pg (27.0-31.2); Mean Corpuscular Volume 96.7 fl (80-94); Nucleated Red Blood Cells % 0 %; Platelet Count 226 K/mm3 (142-424); Red Blood Count 3.35 M/mm3 (4.60-6.20); Red Cell Distribution Width-SD 46.1 fL; White Blood Count 9.0 K/mm3 (4.8-10.8)
[2025-02-25] MEDS: BUDESONIDE 0.5MG/2ML NEB 0.5 MG IH ×2 (06:08→18:09)
[2025-02-25 06:09] LABS: POC Glucose,Bedside 85 gm/dL (70-110)
[2025-02-25 07:15] LABS: Total Cells Counted 100
[2025-02-25 07:19] LABS: Anisocytosis 1+; Macrocytosis 1+; Polychromasia 1+; Spherocytes 1+
[2025-02-25 08:05] LABS: Lactate Venous 1.2 mmol/L (0.4-2.0); VBG HCO3 34.8 mmol/L (23-30); VBG PCO2 60.3 mmol/L (35-51); VBG PH 7.38 mmol/L (7.31-7.41); VBG PO2 41.9 mmol/L (28-40)
[2025-02-25] MEDS: SENNOSIDES 8.6MG/DOCUSATE 50MG TABLET 1 TAB PO (08:17)
[2025-02-25] MEDS: METOPROLOL SUCCINATE XL 25MG TABLET 12.5 MG PO (08:17)
[2025-02-25] MEDS: LEVOFLOXACIN/D5W 750 MG/150 ML 750 MG/150 ML PIGGYBACK 100 MG IV (08:19)
[2025-02-25] MEDS: METHYLPREDNISOLONE SOD SUCC 40MG VIAL 40 MG IV ×2 (08:19→21:06)
--- NOTE | 2025-02-25 08:56 | CT_ITS ---
FINAL REPORT TECHNIQUE: Axial imaging of the chest is obtained after the administration of contrast. 3-D MIP reformatted images were also obtained and reviewed per PE protocol. This study was performed with techniques to keep radiation doses as low as reasonably achievable (ALARA). Individualized dose reduction techniques using automated exposure control or adjustment of mA and/or kV according to the patient's size were employed. CLINICAL HISTORY: pe protocol. SOB COMPARISON: 12/23/2023 FINDINGS: There are segmental filling defects and branches of the left lower lobe pulmonary artery. There are no central or right pulmonary emboli. There is no evidence of right heart strain. There is no aortic dissection. Heart size is normal. There is no mediastinal, hilar, or axillary lymphadenopathy. Severe changes of emphysema are present. There is a new spiculated nodule in the posteromedial right upper lobe, measuring 26 mm in size, best seen on image #43 of series 3. There are new left greater than right lower lobe ground glass and airspace disease, consistent with pneumonia. There is a small right pleural effusion, with no left or pericardial effusion. There is a small hypodense liver lesion, unchanged since the prior exam of 12/23/2023, that likely represents a hepatic cyst. Otherwise, no acute intra-abdominal abnormality is identified. No acute osseous abnormality. IMPRESSION: 1. Segmental filling defects in branches of the left lower lobe pulmonary artery without central or right pulmonary emboli. There is no evidence of right heart strain. 2. There is a new spiculated nodule in the posteromedial right upper lobe, 26 mm in size. This is worrisome for malignancy, and would recommend PET/CT for further evaluation at the resolution of current symptoms. 3. New left greater than right ground glass and airspace disease, consistent with pneumonia. Reviewed, Interpreted and Dictated by Zhanna May MD Transcribed by Mague Kimbrough Authenticated and [facility]
--- NOTE | 2025-02-25 09:47 | PC.NURSE ---
ok to stop [facility] fs per edging supervisor
--- NOTE | 2025-02-25 09:49 | PC.NURSE ---
ok to take patient down to ct without inspector canvas products per md
--- NOTE | 2025-02-25 09:57 | EXP.PULM.PN ---
Subjective *Date: 02/25/25 *Time: 12:08 Interval history: No acute respiratory vents overnight. Status post extubation, tolerating nasal cannula on BiPAP. Pulmonology Exam Inpatient Vital signs and Labs for Last 24 Hours: Temp Pulse Resp BP Pulse Ox O2 Del Method O2 Flow Rate 98.8 F 99 H 18 127/83 93 L Nasal Cannula 2 02/25/25 09:00 02/25/25 09:00 02/25/25 09:00 02/25/25 09:00 02/25/25 09:00 02/25/25 09:00 02/25/25 09:00 FiO2 30 02/25/25 06:13 Laboratory Results - last 24 hr 02/24/25 05:19: Troponin I 0.01 02/24/25 10:22: Specimen Source Left radial, O2 % 30, ABG pH 7.37, ABG pCO2 60.8 H, ABG pO2 64.1 L, ABG HCO3 34.0 H, ABG Total CO2 35.8 H, ABG O2 Saturation 91, ABG Base Excess 8.6 H, Gerard Test Acceptable, PEEP 5 02/24/25 11:18: POC Glucose 100 02/24/25 15:30: VBG pH 7.49 H, VBG pCO2 44.0, VBG pO2 81.7 H, VBG HCO3 32.4 H, VBG Total CO2 33.8 H, VBG O2 Saturation 96.4 H, VBG Base Excess 9.0 H, VBG Lactic Acid 0.9 02/24/25 17:04: POC Glucose 100 02/24/25 20:56: POC Glucose 90 02/25/25 04:31: Sodium 140, Potassium 4.7, Chloride 99, Carbon Dioxide 39 H, Anion Gap 6.7, BUN 22 H, Creatinine 0.90, Estimated Creat Clear 108, Estimated GFR 87, Est GFR ( Amer) 105, Glucose 86 D, Calcium 8.4, Total Bilirubin 0.7, AST 33, ALT 13, Alkaline Phosphatase 55, Total Protein 5.8 L, Albumin 3.4 L, Globulin 2.4, Albumin/Globulin Ratio 1.4 02/25/25 04:52: WBC 9.0, RBC 3.35 L, Hgb 9.4 L, Hct 32.4 L, MCV 96.7 H, MCH 28.1, MCHC 29.0 L, RDW 12.9, Plt Count 226, MPV 10.6 H, Neut % (Auto) 88.8 H, Lymph % (Auto) 5.2 L, Greenlee % (Auto) 5.2, Eos % (Auto) 0.0 L, Baso % (Auto) 0.0 L, Neut # (Auto) 8.0 H, Lymph # (Auto) 0.5 L, Greenlee # (Auto) 0.5, Eos # (Auto) 0.0, Baso # (Auto) 0.0, Total Counted 100, Neutrophils % (Manual) 88 H, Band Neutrophils % 4.0, Lymphocytes % (Manual) 3 L, Monocytes % (Manual) 5, Platelet Estimate Normal, Polychromasia 1+, Anisocytosis 1+, Macrocytosis 1+, Spherocytes 1+ 02/25/25 06:01: POC Glucose 85 02/25/25 07:52: VBG pH 7.38, VBG pCO2 60.3 H, VBG pO2 41.9 H, VBG HCO3 34.8 H, VBG Total CO2 36.6 H, VBG O2 Saturation 78.3 H, VBG Base Excess 9.6 H, VBG Lactic Acid 1.2 I & O for Labs for Last 24 Hours: Intake & Output 02/22/25 02/23/25 02/24/25 02/25/25 23:59 23:59 23:59 23:59 Intake Total 2424.218 / 2424.218 1469.421 / 3275.047 2387.912 / 3402.912 954.167 / 954.167 Output Total 340 / 350 969 / 969 2029 / 2030 1200 / 1200 Balance 2084.218 / 2074.218 500.421 / 865.626 7827.912 / 1372.912 -245.833 / -245.833 Weight 182 lb 5.156 oz 182 lb 15.739 oz 183 lb 13.848 oz 186 lb 11.704 oz Microbiology Reports for the Last 24 Hours: Microbiology 02/22/25 16:35 Sputum - Expectorated Sputum Gram Stain - Final 02/22/25 16:35 Sputum - Expectorated Sputum Sputum Culture - Final Serratia marcescens 02/22/25 13:15 Blood Blood Culture - Preliminary NO GROWTH AFTER 48 HOURS 02/22/25 13:30 Blood Blood Culture - Preliminary NO GROWTH AFTER 48 HOURS 02/22/25 18:09 Anus CRE Surveillance Culture - Final Negative Constitutional: Present severe distress Head: Present normocephalic and atraumatic ENT: Present normal exam, normal oropharynx and mucous membranes moist Neck: Present normal inspection and full ROM Respiratory: Present respiratory distress, rhonchi and wheezes; Absent able to speak in complete sentences Cardiac: Present S1/S2, Tachycardia and radial pulses present GI: Present soft and distention; Absent tenderness or guarding Skin: Present intact; Absent cyanosis or jaundice Neuro: Present alert, awake and oriented x 3 Extremities: Present normal inspection; Absent clubbing or cyanosis Psychiatric: Present normal affect and cooperative Assessment and Plan *Assessment and plan (1) Acute exacerbation of chronic obstructive pulmonary disease: Status: Acute Category: Medical Code(s): J44.1 - Chronic obstructive pulmonary disease with (acute) exacerbation (2) Acute respiratory failure with hypoxia and hypercarbia: Status: Acute Category: Medical Code(s): J96.01 - Acute respiratory failure with hypoxia; J96.02 - Acute respiratory failure with hypercapnia Plan Mr. Lima is a 59-year-old male greater than [id number] smoker history of COPD chronic hypoxic respiratory failure recurrent pneumonia multiple pulmonary nodules presented to the ER with worsening respiratory distress altered mentation pulmonary was called for further evaluation and management. Patient admits worsening respiratory distress but denies any worsening cough or change in sputum color. Neutrophilic predominant leukocytosis. Afebrile. Hemodynamically stable. Chest x-ray upon admission bilateral patchy airspace disease. Blood gas upon admission severe hypercarbic respiratory failure with a pH of 7.47 and pCO2 141.7 with no significant improvement on his blood gas despite oxygen ambulation therapies and noninvasive ventilatory therapy with repeat blood gas continue to show pH of 7.14 and pCO2 141.5 needing intubation mechanical ventilatory support. Successfully extubated. Interval update: S/P extubation. Tolerating BiPAP well Continue to receive Levoflaxacin. Sputum growing Serratia sensitive to Levoflaxacin. Plan: Continue DuoNebs every 4 hours along with Pulmicort every 12 scheduled Continue levofloxacin to complete a total of 7-day course Continue nasal cannula oxygen supplementation during the daytime to maintain O2 saturation goal of 90% and above Continue BiPAP at night at 18/10 and a rate of 18 and FiO2 of 30%. Patient will need BiPAP therapy upon discharge home. Patient also states that he was recently diagnosed with pancreatic cancer in [place] unclear of the location. Could not find any records at [facility]. Please obtain records from [facility]. # Thank you for involving pulmonary in this patient care. Will continue to follow.
--- NOTE | 2025-02-25 10:03 | P.PN_ITS ---
<Statement entered by Phu Redd MD - 02/27/25 14:17> Agree with the plan of care as outlined by the WATER ANALYST. Subjective *Date: 02/25/25 *Time: 10:07 Interval history: Patient is doing well this morning, weaned down to 2 L nasal cannula O2 saturation greater than 90%. Patient still has little air movement upon auscultation, chest CTA pending. Bedside swallow done by nursing staff, patient did well with clear liquids. Advancing diet as tolerated. Medical Exam Vital signs and Labs for Last 24 Hours: Vital Signs Temp Pulse Pulse Resp BP Pulse Ox O2 Del Method 02/25/25 09:00 98.8 F 99 H 18 93 L Nasal Cannula 02/25/25 09:00 127/83 02/25/25 09:00 Nasal Cannula 02/25/25 08:00 98.6 F 89 20 90 L Nasal Cannula 02/25/25 08:00 130/75 02/25/25 08:00 89 02/25/25 07:42 Nasal Cannula 02/25/25 06:13 74 02/25/25 06:13 75 02/25/25 06:13 02/25/25 06:00 98.2 F 76 15 116/79 96 BiPAP 02/25/25 05:00 BiPAP 02/25/25 05:00 98.1 F 17 113/72 94 L BiPAP 02/25/25 04:01 97.9 F 77 15 124/81 96 BiPAP 02/25/25 04:00 93 L BiPAP 02/25/25 04:00 78 02/25/25 03:00 BiPAP 02/25/25 03:00 98.1 F 64 18 101/68 L 97 Nasal Cannula 02/25/25 02:50 72 02/25/25 02:50 75 02/25/25 02:30 98/66 L 02/25/25 02:30 98.1 F 72 19 94 L 02/25/25 02:15 118/68 02/25/25 02:15 97.9 F 55 L 22 96 02/25/25 02:01 97.9 F 74 18 120/73 96 Nasal Cannula 02/25/25 02:01 120/73 02/25/25 02:00 02/25/25 02:00 97.9 F 66 18 96 02/25/25 01:48 97.9 F 68 18 95 02/25/25 01:48 89/60 L 02/25/25 01:45 98.1 F 69 19 94 L 02/25/25 01:45 89/60 L 02/25/25 01:33 102/68 L 02/25/25 01:33 98.1 F 61 18 96 02/25/25 01:30 98.1 F 67 21 95 02/25/25 01:30 87/64 L 02/25/25 01:15 98.1 F 67 18 95 02/25/25 01:15 90/60 L 02/25/25 01:00 BiPAP 02/25/25 01:00 98.1 F 72 18 95 02/25/25 01:00 93/60 L 02/25/25 00:45 98.2 F 65 21 93 L 02/25/25 00:45 90/61 L 02/25/25 00:30 92/65 L 02/25/25 00:30 98.2 F 74 18 92 L 02/25/25 00:15 98.2 F 77 18 89 L 02/25/25 00:15 102/68 L 02/25/25 00:00 96 BiPAP 02/25/25 00:00 94 L BiPAP 02/25/25 00:00 74 02/25/25 00:00 98.2 F 74 19 98/63 L 91 L Nasal Cannula 02/24/25 23:00 BiPAP 02/24/25 23:00 98.2 F 83 18 117/79 99 Nasal Cannula 02/24/25 22:54 80 02/24/25 22:54 79 02/24/25 22:54 02/24/25 22:54 95 BiPAP 02/24/25 22:01 98.6 F 107 H 23 120/72 96 Nasal Cannula 02/24/25 21:00 98.8 F 98 H 37 H 148/63 H 93 L 02/24/25 21:00 Nasal Cannula 02/24/25 20:31 98.8 F 110 H 19 139/102 H 92 L 02/24/25 20:00 120 H 02/24/25 20:00 95 Nasal Cannula 02/24/25 20:00 98.8 F 116 H 19 121/80 93 L Nasal Cannula 02/24/25 19:00 98.6 F 120 H 23 127/90 99 Nasal Cannula 02/24/25 18:51 Nasal Cannula 02/24/25 18:45 98.8 F 122 H 22 134/80 93 L Nasal Cannula 02/24/25 18:30 98.8 F 120 H 16 142/90 H 95 Nasal Cannula 02/24/25 18:20 117 H 02/24/25 18:20 118 H 02/24/25 18:20 95 Nasal Cannula 02/24/25 18:00 98.8 F 117 H 21 122/82 91 L Nasal Cannula 02/24/25 17:32 99.1 F 117 H 22 153/98 H 92 L Nasal Cannula 02/24/25 17:10 Nasal Cannula 02/24/25 16:24 94 L Nasal Cannula 02/24/25 16:15 99.3 F 102 H 19 137/98 H 95 Nasal Cannula 02/24/25 16:15 115 H 92 L Nasal Cannula 02/24/25 16:14 94 H 02/24/25 16:00 98.4 F 02/24/25 16:00 99.3 F 89 18 125/91 H 95 BiPAP 02/24/25 15:30 99.3 F 88 17 131/88 93 L BiPAP 02/24/25 15:16 BiPAP 02/24/25 15:00 99.5 F 91 H 95 BiPAP 02/24/25 15:00 122/81 02/24/25 14:17 02/24/25 14:02 101 H 02/24/25 14:02 100 H 02/24/25 14:00 99.5 F 84 19 144/95 H 95 BiPAP 02/24/25 13:30 99.5 F 104 H 19 137/95 H 92 L BiPAP 02/24/25 13:15 BiPAP 02/24/25 13:00 99.5 F 106 H 20 143/94 H 92 L BiPAP 02/24/25 12:30 105 H 93 L BiPAP 02/24/25 12:30 99.5 F 109 H 18 144/100 H 91 L BiPAP 02/24/25 12:00 113 H 02/24/25 12:00 99.5 F 111 H 19 137/94 H 93 L BiPAP 02/24/25 11:31 99.5 F 144 H 24 191/92 H 93 L BiPAP 02/24/25 11:30 02/24/25 11:28 96 02/24/25 11:00 99.5 F 134 H 22 173/113 H 96 Mechanical Ventilation 02/24/25 11:00 Mechanical Ventilation 02/24/25 10:36 122 H 02/24/25 10:36 124 H 02/24/25 10:30 99.0 F 134 H 20 172/107 H 97 Mechanical Ventilation O2 Flow Rate FiO2 02/25/25 09:00 2 02/25/25 09:00 02/25/25 09:00 2 02/25/25 08:00 2 02/25/25 08:00 02/25/25 08:00 02/25/25 07:42 4 02/25/25 06:13 02/25/25 06:13 02/25/25 06:13 30 02/25/25 06:00 02/25/25 05:00 02/25/25 05:00 02/25/25 04:01 02/25/25 04:00 02/25/25 04:00 02/25/25 03:00 02/25/25 03:00 3 02/25/25 02:50 02/25/25 02:50 02/25/25 02:30 02/25/25 02:30 02/25/25 02:15 02/25/25 02:15 02/25/25 02:01 3 02/25/25 02:01 02/25/25 02:00 30 02/25/25 02:00 02/25/25 01:48 02/25/25 01:48 02/25/25 01:45 02/25/25 01:45 02/25/25 01:33 02/25/25 01:33 02/25/25 01:30 02/25/25 01:30 02/25/25 01:15 02/25/25 01:15 02/25/25 01:00 02/25/25 01:00 02/25/25 01:00 02/25/25 00:45 02/25/25 00:45 02/25/25 00:30 02/25/25 00:30 02/25/25 00:15 02/25/25 00:15 02/25/25 00:00 02/25/25 00:00 30 02/25/25 00:00 02/25/25 00:00 3 02/24/25 23:00 02/24/25 23:00 3 02/24/25 22:54 02/24/25 22:54 02/24/25 22:54 30 02/24/25 22:54 30 02/24/25 22:01 3 02/24/25 21:00 02/24/25 21:00 3 02/24/25 20:31 02/24/25 20:00 02/24/25 20:00 3 02/24/25 20:00 3 02/24/25 19:00 3 02/24/25 18:51 3 02/24/25 18:45 3 02/24/25 18:30 3 02/24/25 18:20 02/24/25 18:20 02/24/25 18:20 4 02/24/25 18:00 3 02/24/25 17:32 2 02/24/25 17:10 3 02/24/25 16:24 3 02/24/25 16:15 3 02/24/25 16:15 3 02/24/25 16:14 02/24/25 16:00 02/24/25 16:00 02/24/25 15:30 02/24/25 15:16 02/24/25 15:00 02/24/25 15:00 02/24/25 14:17 30 02/24/25 14:02 02/24/25 14:02 02/24/25 14:00 02/24/25 13:30 02/24/25 13:15 02/24/25 13:00 02/24/25 12:30 02/24/25 12:30 02/24/25 12:00 02/24/25 12:00 02/24/25 11:31 02/24/25 11:30 30 02/24/25 11:28 02/24/25 11:00 02/24/25 11:00 02/24/25 10:36 02/24/25 10:36 02/24/25 10:30 Intake and Output 02/24/25 02/25/25 02/25/25 23:59 07:59 15:59 Intake Total 1000 / 3402.912 954.167 / 1704.167 750 / 1704.167 Output Total 535 / 2030 1200 / 1200 Balance 465 / 1372.912 -245.833 / 504.167 750 / 504.167 Intake: Intake, Oral Amount 0 / 0 Intake, Total IV Amount 1000 / 3402.912 954.167 / 1704.167 750 / 1704.167 0.9 % Sodium Chloride 1000ML 1, 1000 / 2841.667 954.167 / 1554.167 600 / 1554.167 000 ml @ 125 mls/hr IV .Q8H HAY[facility]E Rx#:[id number] Levofloxacin/D5w 750 mg/150 ml 150 / 150 750 mg In 150 ml @ 100 mls/hr IV Q24H HAYDEE Rx#:[id number] Output: Output, Urine Amount 535 / 1680 1200 / 1200 Other: Number of Unmeasured Voids 0 0 0 Weight 84.7 kg Patient Weight 02/25/25 23:59 Weight 84.7 kg Laboratory Results - last 24 hr 02/24/25 05:19: Troponin I 0.01 02/24/25 10:22: Specimen Source Left radial, O2 % 30, ABG pH 7.37, ABG pCO2 60.8 H, ABG pO2 64.1 L, ABG HCO3 34.0 H, ABG Total CO2 35.8 H, ABG O2 Saturation 91, ABG Base Excess 8.6 H, Gerard Test Acceptable, PEEP 5 02/24/25 11:18: POC Glucose 100 02/24/25 15:30: VBG pH 7.49 H, VBG pCO2 44.0, VBG pO2 81.7 H, VBG HCO3 32.4 H, VBG Total CO2 33.8 H, VBG O2 Saturation 96.4 H, VBG Base Excess 9.0 H, VBG Lactic Acid 0.9 02/24/25 17:04: POC Glucose 100 02/24/25 20:56: POC Glucose 90 02/25/25 04:31: Sodium 140, Potassium 4.7, Chloride 99, Carbon Dioxide 39 H, Anion Gap 6.7, BUN 22 H, Creatinine 0.90, Estimated Creat Clear 108, Estimated GFR 87, Est GFR ( Amer) 105, Glucose 86 D, Calcium 8.4, Total Bilirubin 0.7, AST 33, ALT 13, Alkaline Phosphatase 55, Total Protein 5.8 L, Albumin 3.4 L , Globulin 2.4, Albumin/Globulin Ratio 1.4 02/25/25 04:52: WBC 9.0, RBC 3.35 L, Hgb 9.4 L, Hct 32.4 L, MCV 96.7 H, MCH 28.1, MCHC 29.0 L, RDW 12.9, Plt Count 226, MPV 10.6 H, Neut % (Auto) 88.8 H, Lymph % (Auto) 5.2 L, Casey % (Auto) 5.2, Eos % (Auto) 0.0 L, Baso % (Auto) 0.0 L , Neut # (Auto) 8.0 H, Lymph # (Auto) 0.5 L, Casey # (Auto) 0.5, Eos # (Auto) 0.0, Baso # (Auto) 0.0, Total Counted 100, Neutrophils % (Manual) 88 H, Band Neutrophils % 4.0, Lymphocytes % (Manual) 3 L, Monocytes % (Manual) 5, Platelet Estimate Normal, Polychromasia 1+, Anisocytosis 1+, Macrocytosis 1+, Spherocytes 1+ 02/25/25 06:01: POC Glucose 85 02/25/25 07:52: VBG pH 7.38, VBG pCO2 60.3 H, VBG pO2 41.9 H, VBG HCO3 34.8 H, VBG Total CO2 36.6 H, VBG O2 Saturation 78.3 H, VBG Base Excess 9.6 H, VBG Lactic Acid 1.2 I & O for Labs for Last 24 Hours: Intake & Output 02/22/25 02/23/25 02/24/25 02/25/25 23:59 23:59 23:59 23:59 Intake Total 2424.218 / 2424.218 1469.421 / 9146.849 4196.912 / 3402.912 1704.167 / 1704.167 Output Total 340 / 350 969 / 969 2029 / 2029 1200 / 1200 Balance 2084.218 / 2074.218 500.421 / 025.903 5038.912 / 1372.912 504.167 / 504.167 Weight 82.7 kg 83 kg 83.4 kg 84.7 kg Microbiology Reports for the Last 24 Hours: Microbiology 02/22/25 16:35 Sputum - Expectorated Sputum Gram Stain - Final 02/22/25 16:35 Sputum - Expectorated Sputum Sputum Culture - Final Serratia marcescens 02/22/25 13:15 Blood Blood Culture - Preliminary NO GROWTH AFTER 48 HOURS 02/22/25 13:30 Blood Blood Culture - Preliminary NO GROWTH AFTER 48 HOURS 02/22/25 18:09 Anus CRE Surveillance Culture - Final Negative Constitutional: Present no acute distress, average body habitus and chronically ill appearing Head: Present atraumatic Neck: Present normal inspection Respiratory: Present wheezes, distant breath sounds and diminished air movement Cardiac: Present Regular Rate and Tachycardia GI: Present soft and hypoactive bowel sounds; Absent distention Rectal (male): Present deferred (male): Present deferred Comment:: Maldonado catheter in place Extremities: Present normal inspection; Absent edema Skin: Present intact and dry; Absent rash Comment:: Sedated Assessment and Plan *Assessment and plan (1) Acute exacerbation of chronic obstructive pulmonary disease: Status: Acute Category: Medical Code(s): J44.1 - Chronic obstructive pulmonary disease with (acute) exacerbation (2) COPD (chronic obstructive pulmonary disease) with emphysema: Status: Acute Category: Medical Code(s): J43.9 - Emphysema, unspecified (3) Acute respiratory failure with hypoxia and hypercarbia: Status: Acute Category: Medical Code(s): J96.01 - Acute respiratory failure with hypoxia; J96.02 - Acute respiratory failure with hypercapnia (4) Tobacco dependence: Status: Acute Category: Medical Code(s): F17.200 - Nicotine dependence, unspecified, uncomplicated Plan Mr. Lima is a 59-year-old male with a primary medical history of COPD with base line continuous 4 L nasal cannula, recurrent hypercapnic respiratory failure, hypertension, hyperlipidemia, CAD, and tobacco dependence. He presented to the emergency department with complaints of shortness of breath over 3 to 4 days. VBG was obtained and showed critically elevated CO2 of 141 with respiratory acidosis pH 7.17. Patient was placed on BiPAP and monitored for improvement, serial VBG's obtained in the ED which were grossly unchanged. Additional workup was significant for mild leukocytosis of 11.8, BUN 21, creatinine 1.00. Carbon dioxide of 48 and chloride of 86. CRP elevated at 118, Pro-Elias pending. I was consulted by the emergency department for admission, I agreed to admit the patient to the ICU. Plan of care as follows: #Acute on chronic hypercapnic respiratory failure #Acute COPD exacerbation with emphysema ? Ordering chest CTA PE protocol today due to continued desaturation with ambulation. Little air movement require auscultation of lungs. ? Patient was admitted to the ICU tolerating BiPAP but CO2 level on VBG unchanged after 3 hours. Decision was made by pulmonology to proceed with intubation. Patient was intubated and repeat VBG showed improvement in blood gas with a decrease in pCO2 from 140-75, and a pH improvement to 7.32. Patient had noted neutrophilic predominant leukocytosis, but remained hemodynamically stable and afebrile. WBC 7.8 today. Continue monitoring of patient's VBG management of ventilator per pulmonology. Patient extubated the morning of 02/24/2025 and placed on BiPAP. Patient tolerated BiPAP well yesterday, transition to nasal cannula 2 L. WBC continues to be stable at 9.0, hemoglobin stable at 9.4. VBG this morning shows compensated pH of 7.38, pCO2 60.3. No electrolyte abnormalities and normal kidney function noted on labs. Continue to wear the BiPAP at night at this time, pulmonology consulted for further recommendations. ? Blood cultures show no growth after 48 hours and sputum culture shows positive for Serratia, sensitive to Levaquin. Currently receiving Levaquin 750 mg daily. Respiratory panel negative. ? Patient received broad-spectrum antibiotic coverage in the ED vancomycin and ceftriaxone. - Pulmonolgy consulted, apprecite their continued recommendations. ? Continue with DuoNebs every 4 hours, Pulmicort every 12 hours scheduled. ? Patient currently receiving methylprednisolone 40 mg every 12 hours. Advancing diet as tolerated today, discontinue fluids. ? CBC, CMP, magnesium ordered for the a.m. Full code VTE?Lovenox 40 mg subcu daily Nasal cannula 2 L Advance as tolerated
--- NOTE | 2025-02-25 10:12 | HMH.PTEV ---
Physical Therapy Evaluation Rehab PT IP Evaluation Start: 02/23/25 08:00 Freq: ONCE Status: Active Protocol: Document 02/25/25 10:05 SANDRINE (Rec: 02/25/25 10:12 SANDRINE [id number]) Subjective/History History History Per H&P: Mr. Lima is a 59-year-old male with a primary medical history of COPD with baseline continuous 4 L nasal cannula, recurrent hypercapnic respiratory failure, hypertension, hyperlipidemia, CAD, and tobacco dependence. He presented to the emergency department today with complaints of shortness of breath for the last 3 to 4 days. He states he has used DuoNebs multiple times without success. Patient denies cough, congestion, fever, abdominal pain, chest pain. Assessment in the ED reveals very little air movement with inspiration and expiration. ABG was obtained and showed critically elevated CO2 of 141 with respiratory acidosis pH 7.17. Patient was placed on BiPAP and monitored for improvement, serial VBG's obtained in the ED which were grossly unchanged. Additional workup was significant for mild leukocytosis of 11.8, BUN 21, creatinine 1.00. Carbon dioxide of 48 and chloride of 86. CRP elevated at 118, Pro-Elias pending. I personally interpreted patient's chest x-ray which shows pulmonary congestion, no evidence of pneumonia or consolidations. Pulmonology, Dr. Ng was consulted from the emergency department. Subjective Subjective Pt reports he lives alone in an apartment and usually uses a w/c for all mobility. Pt has a ramped entrance into his mobile home. Pt normally able to transfer form EOB <>w/c without assistance. Pt's brother lives nearby and assists with mobility tasks as needed. Pt is on 2L of supplemental O2 at home. New diagnosis of No cancer in past 12 months? [facility] How much help from another person do you currently need... Turning from your A little back to your side while in a flat bed without using bedrails? Moving from lying on A little back to sitting on the side of a flat bed without using bedrails? Moving to and from a A little bed to a chair ( including a wheelchair)? Standing up from a A little chair using your arms? (e.g., wheelchair, bedside chair) Walking in hospital A lot room? Climbing 3-5 steps A lot with a railing? Mobility Score 16 Mobility Level [facility] Mobility 5 Stand (1 or more minutes) Mobility Calculator Rehab PT IP Eval Objective Appearance Patient Behavior Appropriate,Cooperative Patient Orientation Person Difficulty following none instructions Speech Pattern Clear Ambulation Patient Able to No Ambulate Balance Ability to Arise Able, uses arms to help Sitting Balance Steady, safe Standing Balance Steady, wide stance Dynamic Sitting Good Balance Ability Dynamic Standing Good Balance Ability Transfers Bed Transfer Ability Minimal x 1 (25% assist) Sit to Stand Bed Minimal x 2 (25% assist) Transfer Ability Rehab PT IP prob,goals,plan Problems Date of Evaluation: 02/25/25 PT IP Problems Bed Mobility,Transfers,Gait,Balance,Self care,Safety Rehab Potential Rehab Potential Good Plan PT Intervention Plan Bed Mobility,Transfers,Gait,Balance,Self care,Safety, Therapeutic Exercise Other Intervention 1-2 times Plan PT Plan Frequency Daily Duration LOS Discharge Goals Bed Transfer Ability Supervision/Stand by Sit to Stand Chair Supervision/Stand by Transfer Ability Discharge Plan PT Discharge Plan Initial physical therapy evaluation performed. Patient presents below baseline at this time in functional mobility, transfers, gait, and strength. Pt would benefit from skilled PT while at [facility] to prevent further functional decline and maximize safety with mobility. Pt most appropriate to d/c home with 24/7 care by family when deemed medically necessary d/t current level of mobility, home set-up, and family support. If pt does not have family assistance, pt would benefit from inpatient rehabilitation. PT recommending home health PT services to address deficits. Eval Complexity Eval Charge Codes 23683 - Moderate Complexity PHYSICIAN CERTIFICATION: I certify the specified therapy services for Ancelmo Lima are required, authorized, and reviewed every 30 days.
[2025-02-25] MEDS: 0.9 % SODIUM CHLORIDE 50 ML VIAL 40 ML IV (11:23)
[2025-02-25] MEDS: SODIUM CHLORIDE 0.9% 10ML SYR (RAD ONLY) 10 ML IV (11:24)
[2025-02-25] MEDS: IOPAMIDOL-370 (76%);100ML BOTTLE 70 ML IV (11:24)
--- NOTE | 2025-02-25 12:41 | SW/DCPLANNER ---
Addendum entered by Vanna Uriostegui RN 02/26/25 09:01: Patient was working with PT/OT this morning and Oxygen continues to drop. It is hard to tell exactly what he needs due to this. However, patient states at home he goes from the bed to BSC and doesn't walk much farther than that. Therapy recommends placement but he is currently unwilling to consider this. Original Note: I spoke w/ patient regarding plans once medically stable for discharge. PT evaluated patient and recommended SNF level of care at time of discharge. Patient and I had a lengthy discussion regarding the need for placement. Patient and I discussed [facility] placement vs [facility] if a candidate. Patient is not agreeable to any facilities at this time due to cost for [facility] placement. I did explain the importance of placement and being too weak to be at home alone. CM will continue to follow up w/ patient. Patient currently has a hospital bed and BSC at home.
--- NOTE | 2025-02-25 13:14 | CA_ITS ---
APPROVED REPORT EXAM: Comprehensive 2D, Doppler, and color-flow Echocardiogram Battery Wrecker Operator: Rain Frederick RT(R) Ht: 5 ft 11 in Wt: 186lbs BSA: 2.04 BP: 127/83 mmHg Indications: respiratory failure, Pulmonary embolism on CTA, recent extubation 02/24/25. 2D Dimensions EF AP4 60.80 % GL Strain -20.3 % M-Mode Dimensions RVDd 2.85 cm (0.9-2.6) LVDd 4.82 cm (3.5-5.7) LVDs 3.90 cm (3.5-5.7) IVSd 0.76 cm (0.6-1.1) PWd 0.92 cm (0.6-1.1) EF (Teich) 39.30% FS 19.10% EDV (Teich) 108.60 mL TAPSE 1.28 (<1.7) ESV (Teich) 65.90 mL LV Diastology E Decel Time 150 (160-240 msec) E/A Ratio 0.9 Mitral Valve MV E Max Guido. 91.0 (40-130 cm/s) MV A Velocity 98.0 (40-130 cm/s) E/A Ratio 0.92 MV PHT 44.0 ms Left Ventricle The left ventricle is normal size. Left ventricular systolic function is normal. The left ventricular ejection fraction is within the normal range. There is normal left ventricular wall thickness. There is normal LV segmental wall motion. The left ventricular diastolic function is normal. LVEF is 55% Right Ventricle The right ventricle is mildly dilated. The right ventricular systolic function is normal. Atria The left atrium size is normal. The right atrium size is normal. There is no color Doppler evidence of interatrial shunt. Aortic Valve The aortic valve opens well. There is no hemodynamically significant aortic valvular stenosis. No aortic regurgitation is present. Mitral Valve The mitral valve is normal in structure. No evidence of mitral valve stenosis. Trace mitral regurgitation is present. Tricuspid Valve The tricuspid valve leaflets are thin and pliable. Trace tricuspid regurgitation. There is insufficient TR jet to estimate RVSP. Pulmonic Valve The pulmonary valve is grossly normal in structure. Trace pulmonic valve regurgitation is present. Great Vessels The aortic root is normal in size. IVC is normal in size and collapses >50% with inspiration. Pericardium There is no pericardial effusion. Other Information Study Quality: Fair Conclusion Normal biventricular systolic function. Mild RV dilation. No significant valvular stenosis or regurgitation. Electronically signed by : Hawa Dickey MD 02/27/2025 01:24:09
--- NOTE | 2025-02-25 15:49 | PC.NURSE ---
VS stable and patient on 3.5LNC. Lung sounds expiratory wheezing and some rhonchi. Cough productive. Patient able to ambulate to the chair with 2 assist per physical therapy. Maldonado catheter removed, patient tolerated well.
--- NOTE | 2025-02-25 17:35 | PC.NURSE ---
RESP CARE NOTE: Per Dr Ng pt is to wear BiPAP tonight with setting of 18/10, rate of 18, and FiO2 of 30%
[2025-02-25] MEDS: PANTOPRAZOLE 40MG VIAL 40 MG IV (21:06)
[2025-02-25] MEDS: SODIUM CHLORIDE 0.9% 10ML VIAL 10 ML IV (21:06)
[2025-02-26] VITALS (13 sets, daily range): BP systolic 94–119; BP diastolic 61–77; PULSE 58–115; RESP 16–21; TEMP 36.2–36.8; O2SAT 90–96; BMI 25.9
[2025-02-26] MEDS: IPRATROPIUM/ALBUTEROL 3 ML NEB IH ×4 (02:44→13:45)
[2025-02-26 06:07] LABS: POC Glucose,Bedside 109 gm/dL (70-110)
[2025-02-26] MEDS: BUDESONIDE 0.5MG/2ML NEB 0.5 MG IH (06:13)
--- NOTE | 2025-02-26 07:33 | P.PN_ITS ---
Subjective *Date: 02/26/25 *Time: 14:05 Interval history: No acute respiratory events overnight. Patient denies any new respiratory complaints. Pulmonology Exam Inpatient Vital signs and Labs for Last 24 Hours: Temp Pulse Resp BP Pulse Ox O2 Del Method O2 Flow Rate 97.1 F L 59 L 18 106/72 L 93 L BiPAP 2.5 02/26/25 04:01 02/26/25 06:26 02/26/25 06:00 02/26/25 06:00 02/26/25 06:00 02/26/25 07:00 02/25/25 22:00 FiO2 30 02/26/25 06:26 Laboratory Results - last 24 hr 02/25/25 07:52: VBG pH 7.38, VBG pCO2 60.3 H, VBG pO2 41.9 H, VBG HCO3 34.8 H, VBG Total CO2 36.6 H, VBG O2 Saturation 78.3 H, VBG Base Excess 9.6 H, VBG Lactic Acid 1.2 02/26/25 05:57: POC Glucose 109 I & O for Labs for Last 24 Hours: Intake & Output 02/23/25 02/24/25 02/25/25 02/26/25 23:59 23:59 23:59 23:59 Intake Total 1469.421 / 6612.393 4404.912 / 3402.912 2388.167 / 2388.167 Output Total 969 / 969 2029 / 2030 3240 / 3240 600 / 600 Balance 500.421 / 561.147 4363.912 / 1372.912 -851.833 / -851.833 -600 / -600 Weight 182 lb 15.739 oz 183 lb 13.848 oz 186 lb 11.704 oz 185 lb 10.067 oz Microbiology Reports for the Last 24 Hours: Microbiology 02/22/25 16:35 Sputum - Expectorated Sputum Gram Stain - Final 02/22/25 16:35 Sputum - Expectorated Sputum Sputum Culture - Final Serratia marcescens Constitutional: Present severe distress Head: Present normocephalic and atraumatic ENT: Present normal exam, normal oropharynx and mucous membranes moist Neck: Present normal inspection and full ROM Respiratory: Present respiratory distress, rhonchi and wheezes; Absent able to speak in complete sentences Cardiac: Present S1/S2, Tachycardia and radial pulses present GI: Present soft and distention; Absent tenderness or guarding Skin: Present intact; Absent cyanosis or jaundice Neuro: Present alert, awake and oriented x 3 Extremities: Present normal inspection; Absent clubbing or cyanosis Psychiatric: Present normal affect and cooperative Assessment and Plan *Assessment and plan (1) Acute exacerbation of chronic obstructive pulmonary disease: Status: Acute Category: Medical Code(s): J44.1 - Chronic obstructive pulmonary disease with (acute) exacerbation (2) Acute respiratory failure with hypoxia and hypercarbia: Status: Acute Category: Medical Code(s): J96.01 - Acute respiratory failure with hypoxia; J96.02 - Acute respiratory failure with hypercapnia (3) Pulmonary embolism on left: Status: Acute Category: Medical Code(s): I26.99 - Other pulmonary embolism without acute cor pulmonale (4) Nodule of right lung: Status: Acute Category: Medical Code(s): R91.1 - Solitary pulmonary nodule Plan Mr. Lima is a 59-year-old male greater than [id number] smoker history of COPD chronic hypoxic respiratory failure recurrent pneumonia multiple pulmonary nodules presented to the ER with worsening respiratory distress altered mentation pulmonary was called for further evaluation and management. Patient admits worsening respiratory distress but denies any worsening cough or change in sputum color. Neutrophilic predominant leukocytosis. Afebrile. Hemodynamically stable. Chest x-ray upon admission bilateral patchy airspace disease. Blood gas upon admission severe hypercarbic respiratory failure with a pH of 7.47 and pCO2 141.7 with no significant improvement on his blood gas despite oxygen ambulation therapies and noninvasive ventilatory therapy with repeat blood gas continue to show pH of 7.14 and pCO2 141.5 needing intubation mechanical ventilatory support. Successfully extubated. Interval update: Tolerating nasal cannula and BiPAP therapy well. CTA left lower lobe pulmonary embolism segmental. Initiated anticoagulation. Also noted new right upper lobe spiculated nodule concerning for malignancy. Plan: Continue DuoNebs every 4 hours along with Pulmicort every 12 scheduled Change steroids to prednisone 40 mg daily Continue full dose anticoagulation for pulmonary embolism Continue levofloxacin to complete a total of 7-day course Continue nasal cannula oxygen supplementation during the daytime to maintain O2 saturation goal of 90% and above Continue BiPAP at night at 18/10 and a rate of 18 and FiO2 of 30%. Patient will need BiPAP therapy upon discharge home. #Patient also states that he was recently diagnosed with pancreatic cancer in [place] unclear of the location. Could not find any records at [facility]. Please obtain records from [facility]. The abdomen from [facility] December 2023 showed stable pancreatic lesion however neoplasm cannot be excluded, recommended MRI abdomen. His PET CT scan from June 2023 also showed concerning anorectal lesion, next recommended direct visualization, however patient has has not followed up with surgery. Seen for the management of the concerning pancreatic lesion and rectal abnormalities noted on his prior imaging study to primary team. # For the concerning lung nodules will follow-up in outpatient basis and will plan for bronchoscopy with transbronchial biopsy. Patient to be discharged home on Eliquis at this point of time. Will proceed with Lovenox pending procedure scheduling. # Thank you for involving pulmonary in this patient care. Will continue to follow.
[2025-02-26 08:21] LABS: Hematocrit 34.9 % (42.0-52.0); Hemoglobin 10.6 g/dL (14.1-18.0); Immature Granulocytes % 0.7 %; Mean Corpuscular HGB Conc 30.4 g/dL (31.8-35.4); Mean Corpuscular Hemoglobin 28.6 pg (27.0-31.2); Mean Corpuscular Volume 94.3 fl (80-94); Nucleated Red Blood Cells % 0 %; Platelet Count 232 K/mm3 (142-424); Red Blood Count 3.70 M/mm3 (4.60-6.20); Red Cell Distribution Width-SD 44.0 fL; White Blood Count 9.2 K/mm3 (4.8-10.8)
[2025-02-26 08:24] LABS: Lactate Venous 1.2 mmol/L (0.4-2.0); VBG HCO3 39.3 mmol/L (23-30); VBG PCO2 68.0 mmol/L (35-51); VBG PH 7.38 mmol/L (7.31-7.41); VBG PO2 34.1 mmol/L (28-40)
--- NOTE | 2025-02-26 08:30 | HMH.PHAAMS2 ---
- Antimicrobial Stewardship Review 48 hour timeout review Stewardship interventions: 48 hour timeout review, reviewed - no change Comments: NATASHA COPELAND TO ANA M, CONTINUE THERAPY culture & sensitivity review Stewardship interventions: culture & sensitivity review, reviewed - no change Comments: NATASHA CPOELAND TO ANA M, CONTINUE THERAPY
[2025-02-26] MEDS: METHYLPREDNISOLONE SOD SUCC 40MG VIAL 40 MG IV (08:34)
[2025-02-26] MEDS: SENNOSIDES 8.6MG/DOCUSATE 50MG TABLET 1 TAB PO (08:34)
[2025-02-26] MEDS: POLYETHYLENE GLYCOL 3350 17 GM PACKET PO (08:34)
[2025-02-26] MEDS: LEVOFLOXACIN/D5W 750 MG/150 ML 750 MG/150 ML PIGGYBACK 100 MG IV (08:35)
[2025-02-26 08:46] LABS: Alanine Aminotransferase 18 U/L (12-78); Albumin Level 3.3 g/dl (3.5-5.0); Albumin/Globulin Ratio 1.0 (1.1-1.8); Alkaline Phosphatase 60 U/L (38-126); Aspartate Amino Transferase 29 U/L (17-59); Bilirubin,Total 0.6 mg/dl (0.2-1.3); Blood Urea Nitrogen 24 mg/dl (9-20); Calcium 8.9 mg/dl (8.4-10.2); Chloride 95 mmol/L (98-107); Creatinine Clearance Estimated 97 mL/min (50-200); Creatinine,Serum 1.00 mg/dl (0.66-1.25); Estimated Glomerular Filt Rate 77 ml/min (>60); GFR (African American) 93 ML/MIN (>60); Globulin 3.4 g/dL (1.3-3.2); Glucose 115 mg/dl (74-100); Magnesium 1.9 mg/dl (1.6-2.3); Potassium 4.1 mmoL/L (3.5-5.1); Sodium 136 mmol/L (136-145); Total Protein,Serum 6.7 g/dl (6.3-8.2)
[2025-02-26 08:51] LABS: C-Reactive Protein 34.3 mg/L (0-4)
[2025-02-26 08:52] LABS: Anion Gap 5.1 mEq/L (5-15); Carbon Dioxide 40 mmol/L (22.0-30.0)
[2025-02-26 09:02] LABS: Procalcitonin 0.067 ng/mL (0.0-2.0)
--- NOTE | 2025-02-26 12:50 | EXP.DC.SUM ---
General Admission date:: 02/22/25 HPI HPI HPI: Mr. Lima is a 59-year-old male with a primary medical history of COPD with baseline continuous 4 L nasal cannula, recurrent hypercapnic respiratory failure, hypertension, hyperlipidemia, CAD, and tobacco dependence. He presented to the emergency department today with complaints of shortness of breath for the last 3 to 4 days. He states he has used DuoNebs multiple times without success. Patient denies cough, congestion, fever, abdominal pain, chest pain. Assessment in the ED reveals very little air movement with inspiration and expiration. ABG was obtained and showed critically elevated CO2 of 141 with respiratory acidosis pH 7.17. Patient was placed on BiPAP and monitored for improvement, serial VBG's obtained in the ED which were grossly unchanged. Additional workup was significant for mild leukocytosis of 11.8, BUN 21, creatinine 1.00. Carbon dioxide of 48 and chloride of 86. CRP elevated at 118, Pro-Elias pending. I personally interpreted patient's chest x-ray which shows pulmonary congestion, no evidence of pneumonia or consolidations. Pulmonology, Dr. Ng was consulted from the emergency department. Hospital Course Hospital Course Hospital Course: Mr. Lima is a 59-year-old male with a primary medical history of COPD with baseline continuous 4 L nasal cannula, recurrent hypercapnic respiratory failure, hypertension, hyperlipidemia, CAD, and tobacco dependence. He presented to the emergency department with complaints of shortness of breath over 3 to 4 days. VBG was obtained and showed critically elevated CO2 of 141 with respiratory acidosis pH 7.17. Patient was placed on BiPAP and monitored for improvement, serial VBG's obtained in the ED which were grossly unchanged. Additional workup was significant for mild leukocytosis of 11.8, BUN 21, creatinine 1.00. Carbon dioxide of 48 and chloride of 86. CRP elevated at 118, Pro-Elias pending. I was consulted by the emergency department for admission, I agreed to admit the patient to the ICU. Plan of care as follows: #Acute on chronic hypercapnic respiratory failure #Acute COPD exacerbation with emphysema #Pulmonary embolism #Spiculated 2.6 cm RUL lesion ? Ordering chest CTA PE protocol today due to continued desaturation with ambulation. Little air movement require auscultation of lungs. ? Patient was admitted for acute on chronic hypercapnic respiratory failure necessitating initial BiPAP and escalating to mechanical ventilation due to poor response on BiPAP. ? Extubated on 02/24/2025 with good toleration on subsequent BiPAP then weaned to 2 to 3 L nasal cannula. Saturating 84% at rest on room air. ? Overall, patient gradually improved with DuoNebs, Pulmicort, steroids, levofloxacin. ? Sputum culture showed Serratia sensitive to levofloxacin. Respiratory panel otherwise normal. ? Pulmonology consulted, appreciate their recommendations as above. ? CTA chest on 02/25/2025 revealed left lower lobe pulmonary embolism with no evidence of right heart strain. ECHO confirmed this. ? CTA chest also revealed spiculated 2.6 cm RUL lesion suspicious for malignancy. Discussed with pulmonology, plan for outpatient EBUS and biopsy. ? Discharged with 3 L nasal cannula, Eliquis 5 mg twice daily, levofloxacin 750 mg for 3 more days, prednisone 40 mg for 2 more days. ? Continue home Trelegy 100, DuoNebs as needed. ? Will need close follow-up with pulmonology within 1 week. #History of pancreatic cancer #History of rectal cancer #Suspected lung malignancy ? Patient is not a great historian, does not know the details of his workup. He thinks it might have been at but he is unsure. ? Will refer to GI and oncology for further evaluation and management. Total time spent on discharge: 35 minutes on chart review, counseling, documentation, and direct care with patient. Exam Data for Last 24 hours Vital signs and Labs for Last 24 Hours: Temp Pulse Resp BP Pulse Ox O2 Del Method O2 Flow Rate 98.2 F 91 H 18 117/77 90 L Nasal Cannula 2 02/26/25 09:00 02/26/25 12:00 02/26/25 09:00 02/26/25 09:00 02/26/25 10:00 02/26/25 11:00 02/26/25 11:00 FiO2 30 02/26/25 06:26 Laboratory Results - last 24 hr 02/26/25 05:57: POC Glucose 109 02/26/25 08:10: WBC 9.2, RBC 3.70 L, Hgb 10.6 L, Hct 34.9 L, MCV 94.3 H, MCH 28.6, MCHC 30.4 L, RDW 12.9, Plt Count 232, MPV 9.7, Neut % (Auto) 84.8 H, Lymph % (Auto) 8.5 L, [place] % (Auto) 5.9, Eos % (Auto) 0.0 L, Baso % (Auto) 0.1, Neut # (Auto) 7.8, Lymph # (Auto) 0.8, [place] # (Auto) 0.5, Eos # (Auto) 0.0, Baso # (Auto) 0.0, VBG pH 7.38, VBG pCO2 68.0 H, VBG pO2 34.1, VBG HCO3 39.3 H, VBG Total CO2 41.4 H, VBG O2 Saturation 67.3, VBG Base Excess 14.2 H, VBG Lactic Acid 1.2, Sodium 136, Potassium 4.1, Chloride 95 L, Carbon Dioxide 40 H, Anion Gap 5.1, BUN 24 H, Creatinine 1.00, Estimated Creat Clear 97, Estimated GFR 77, Est GFR ( Amer) 93, Glucose 115 H, Calcium 8.9, Magnesium 1.9, Total Bilirubin 0.6, AST 29, ALT 18 D, Alkaline Phosphatase 60, C-Reactive Protein 34.3 H, Total Protein 6.7, Albumin 3.3 L, Globulin 3.4 H, Albumin/Globulin Ratio 1.0 L, Procalcitonin 0.067 I & O for Last 24 hours: Intake & Output 02/23/25 02/24/25 02/25/25 02/26/25 23:59 23:59 23:59 23:59 Intake Total 1469.421 / 2266.272 6401.912 / 3402.912 2388.167 / 2388.167 360 / 360 Output Total 969 / 969 2029 / 2029 3240 / 3240 600 / 600 Balance 500.421 / 735.517 1137.912 / 1372.912 -851.833 / -851.833 -240 / -240 Weight 83 kg 83.4 kg 84.7 kg 84.2 kg Microbiology Reports for the Last 24 Hours: Microbiology 02/22/25 16:35 Sputum - Expectorated Sputum Gram Stain - Final 02/22/25 16:35 Sputum - Expectorated Sputum Sputum Culture - Final Serratia marcescens Results Data Completed and Pending Labs on day of discharge: Labs from last 24 hours 02/26/25 02/26/25 08:10 05:57 WBC 9.2 RBC 3.70 L Hgb 10.6 L Hct 34.9 L MCV 94.3 H MCH 28.6 MCHC 30.4 L RDW 12.9 Plt Count 232 MPV 9.7 Neut % (Auto) 84.8 H Lymph % (Auto) 8.5 L [place] % (Auto) 5.9 Eos % (Auto) 0.0 L Baso % (Auto) 0.1 Neut # (Auto) 7.8 Lymph # (Auto) 0.8 [place] # (Auto) 0.5 Eos # (Auto) 0.0 Baso # (Auto) 0.0 VBG pH 7.38 VBG pCO2 68.0 H VBG pO2 34.1 VBG HCO3 39.3 H VBG Total CO2 41.4 H VBG O2 Saturation 67.3 VBG Base Excess 14.2 H VBG Lactic Acid 1.2 Sodium 136 Potassium 4.1 Chloride 95 L Carbon Dioxide 40 H Anion Gap 5.1 BUN 24 H Creatinine 1.00 Estimated Creat Clear 97 Estimated GFR 77 Est GFR ( Amer) 93 Glucose 115 H POC Glucose 109 Calcium 8.9 Magnesium 1.9 Total Bilirubin 0.6 AST 29 ALT 18 D Alkaline Phosphatase 60 C-Reactive Protein 34.3 H Total Protein 6.7 Albumin 3.3 L Globulin 3.4 H Albumin/Globulin Ratio 1.0 L Procalcitonin 0.067 Preliminary micro results at discharge 02/22/25 13:15 Blood Culture - Preliminary Blood NO GROWTH AFTER 48 HOURS 02/22/25 13:30 Blood Culture - Preliminary Blood NO GROWTH AFTER 48 HOURS DS: Diagnosis Discharge Diagnosis (1) Acute exacerbation of chronic obstructive pulmonary disease: Status: Acute Code(s): J44.1 - Chronic obstructive pulmonary disease with (acute) exacerbation (2) Acute respiratory failure with hypoxia and hypercarbia: Status: Acute Code(s): J96.01 - Acute respiratory failure with hypoxia; J96.02 - Acute respiratory failure with hypercapnia (3) Pulmonary embolism on left: Status: Acute Code(s): I26.99 - Other pulmonary embolism without acute cor pulmonale (4) Nodule of right lung: Status: Acute Code(s): R91.1 - Solitary pulmonary nodule Meds Home Medications and Allergies Home Medications ?Medication ?Instructions ?Recorded ?Confirmed ?Type sodium chloride 0.65 % nasal spray 1 spray intranasal BIDP PRN Dry 12/23/23 03/01/25 History aerosol ([place] Saline) Nasal Passages atorvastatin 40 mg tablet 40 mg PO HS #90 tabs 12/30/23 03/01/25 Rx metoprolol succinate 25 mg 12.5 mg (1/2 x 25 mg) PO DAILY #30 12/30/23 03/01/25 Rx tablet,extended release 24 hr tabs (Toprol XL) albuterol sulfate 90 mcg/actuation 2 puff inhalation Q4HP PRN 10/14/24 03/01/25 History aerosol inhaler (Ventolin HFA) Shortness Of Breath Or Wheezing amitriptyline 25 mg tablet 25 mg PO HS 10/14/24 03/01/25 History docusate sodium 100 mg capsule 100 mg PO BID 10/14/24 03/01/25 History ergocalciferol (vitamin D2) 1,250 50,000 unit PO WEEKLY 10/14/24 03/01/25 History mcg (50,000 unit) capsule ipratropium 0.5 mg-albuterol 3 mg 3 ml inhalation Q4HP PRN Shortness 10/19/24 03/01/25 Rx (2.5 mg base)/3 mL nebulization Of Breath Or Wheezing #180 mL soln nicotine 21 mg/24 hr daily 21 mg transdermal DAILYP PRN 10/19/24 03/01/25 Rx transdermal patch Nicotine Cravings 28 days #28 ea sennosides 8.6 mg-docusate sodium 1 tab PO BID PRN Constipation 10 10/19/24 03/01/25 Rx 50 mg tablet (Stimulant Laxative days #20 tabs Plus) fluticasone fur. 100 mcg-umeclid 1 inh inhalation DAILY 90 days #90 12/08/24 03/01/25 Rx 62.5 mcg-vilant 25 mcg ea inhalat.powder (Trelegy Ellipta) apixaban 5 mg (74 tabs) tablets in 5 mg PO BID #74 tabs 02/26/25 03/01/25 Rx a dose pack (Eliquis DVT-PE Treat 30D Start) levofloxacin 750 mg tablet 750 mg PO DAILY 3 days #3 tabs 02/26/25 03/01/25 Rx prednisone 20 mg tablet 40 mg (2 x 20 mg) PO DAILY 2 days 02/26/25 03/01/25 Rx #4 tabs New Prescriptions to Start Prescriptions: apixaban [Eliquis DVT-PE Treat 30D Start] Phu Redd levofloxacin Phu Redd prednisone Phu Redd Allergies Allergy/AdvReac Type Severity Reaction Status Date / Time aspirin (ASPIRIN) Allergy Mild Rash Verified 03/01/25 11:01 codeine (CODEINE) Allergy Mild Swelling Verified 03/01/25 11:01 of Lip/Tongue/Throat ibuprofen (IBUPROFEN) Allergy Unknown Rash Verified 03/01/25 11:01 acetaminophen (From Tylenol) Allergy Rash Verified 03/01/25 11:01 tramadol Allergy Rash Verified 03/01/25 11:01 Discharge Plan Disposition Patient Disposition: Home, Self-Care Condition: Fair Discharge Order Discharge Orders: Discharge Order (Routine); Ordered 02/26/25 Ordered By: Phu Redd Follow up Plan Follow up with: Larisa Boyd APRN [Nurse Practitioner, Gastroenterology] - 03/01/25 11:15 am Kaushal Avila MD [Staff Physician, Oncology] - 03/05/25 11:00 am Donnie Flores DO [Staff Physician, Family Practice] - 03/04/25 1:00 pm Candido Ng MD [Physician, Pulmonology] - 1 week Referral Note: The office is aware of your need for an appointment. Please call Saturday03/01/25 if you have no recived a call. Thank you! Prescriptions/Medication Reconciliation: New Eliquis DVT-PE Treat 30D Start 5 mg (74 tabs) tablets,dose pack 5 mg PO BID Qty: 74 0RF Rx Instructions: Take 10 mg twice daily for the first 7 days, then take 5 mg twice daily. levofloxacin 750 mg tablet 750 mg PO DAILY 3 Days Qty: 3 0RF prednisone 20 mg tablet 40 mg PO DAILY 2 Days Qty: 4 0RF Continued metoprolol succinate [Toprol XL] 25 mg tablet extended release 24 hr 12.5 mg PO DAILY Qty: 30 5RF atorvastatin 40 mg tablet 40 mg PO HS Qty: 90 0RF Trelegy Ellipta 100-62.5-25 mcg blister with device 1 inh inhalation DAILY 90 Days Qty: 90 2RF [place] Saline 0.65 % aerosol,spray 1 spray intranasal BIDP PRN (Reason: Dry Nasal Passages) amitriptyline 25 mg tablet 25 mg PO HS Patient Comments: TAKE 1 TABLET BY MOUTH AT BEDTIME docusate sodium 100 mg capsule 100 mg PO BID Patient Comments: TAKE 1 CAPSULE BY MOUTH 2 TIMES A DAY ergocalciferol (vitamin D2) 1,250 mcg (50,000 unit) capsule 50,000 unit PO WEEKLY albuterol sulfate [Ventolin HFA] 90 mcg/actuation HFA aerosol inhaler 2 puff inhalation Q4HP PRN (Reason: Shortness Of Breath Or Wheezing) sennosides-docusate sodium [Stimulant Laxative Plus] 8.6-50 mg Tablet 1 tab PO BID PRN (Reason: Constipation) 10 Days Qty: 20 0RF nicotine 21 mg/24 hr Patch 24 Hour 21 mg transdermal DAILYP PRN (Reason: Nicotine Cravings) 28 Days Qty: 28 0RF ipratropium-albuterol 0.5 mg-3 mg(2.5 mg base)/3 mL solution for nebulization 3 ml inhalation Q4HP PRN (Reason: Shortness Of Breath Or Wheezing) Qty: 180 0RF Problem Reconciliation Problems Reviewed?: Yes Patient Discharge Instructions Additional Instructions: It is very important you follow-up with Dr. Ng and Dr. Avila (with oncology) within the next 2 weeks to ensure you are getting better after discharge. Otherwise, there is a high chance you will return to the hospital sick again. Print Language: Greenlandic Providers Primary Care Provider: Phu Weber Admit Provider: Ananth Gaspar Attending Provider: Ananth Gaspar
--- NOTE | 2025-02-26 15:16 | PC.NURSE ---
pt's room air saturation 84%.
--- NOTE | 2025-02-26 18:22 | PC.NURSE ---
PT WAS DISCHARGED HOME. PT STATED HE WOULD BE OKAY AT HOME B/C HIS BROTHER LIVED NEXT TO HIM AND CHECKS ON HIM FREQUENTLY. O2 SATURATION MAINTAINED 90-94% ON 3 L NC. PT WOULD DESAT TO THE LOW 80'S WITH MINIMAL EXERTION. DISCHARGE INSTRUCTIONS WERE WENT OVER THOROUGHLY WITH PT AND FAMILY. PT STATED HE HAD A DIFFICULT TIME GETTING TO APPOINTMENTS DUE TO BEING IN SO MUCH PAIN AND SOA. THIS NURSE STATED TO PT AND FAMILY THAT IT WAS VERY IMPORTANT THAT HE FOLLOWED UP WITH ALL PROVIDERS SO HE COULD GET THE APPROPRIATE CARE THAT HE NEEDS AND TO TAKE ALL MEDS THAT WERE PRESCRIBED. BIPAP WAS DELIVERED TO BEDSIDE. PT STATED HE WOULD WEAR BIPAP THIS EVENING.
--- NOTE | 2025-03-02 11:30 | SW/DCPLANNER ---
Spoke with patient on the phone. Patient stated that he is doing good. Patient stated that he is aware of his upcoming appointments. Patient stated that he was able to get his new medicine and that they are bringing it to him today. Patient stated that he has no concerns or questions at this time. Harris Enriquez
[2025-03-02 15:19] LABS: POC Glucose,Bedside 88 gm/dL (70-110)
== END 2025-02-26 18:40 | disposition home or self-care (01) | DRG 208 ==
LOC: ER 13:19 → ICU 15:22
PROVIDERS: Internal Medicine Pulmonary Disease; Student in an Organized Health Care Education/Training Program; Admitting Provider Internal Medicine Adolescent Medicine; Emergency Provider Student in an Organized Health Care Education/Training Program; PCP Internal Medicine; Visit Provider Internal Medicine Adolescent Medicine
DX: J96.01 Acute respiratory failure with hypoxia (principal); I26.99 Other pulmonary embolism without acute cor pulmonale; J15.69 Pneumonia due to other Gram-negative bacteria; G93.41 Metabolic encephalopathy; J44.1 Chronic obstructive pulmonary disease with (acute) exacerbation; C34.11 Malignant neoplasm of upper lobe, right bronchus or lung; C25.9 Malignant neoplasm of pancreas, unspecified; C21.8 Malignant neoplasm of overlapping sites of rectum, anus and anal canal; Z16.11 Resistance to penicillins; J96.22 Acute and chronic respiratory failure with hypercapnia; J44.0 Chronic obstructive pulmonary disease with (acute) lower respiratory infection; J43.9 Emphysema, unspecified; E78.5 Hyperlipidemia, unspecified; I25.10 Atherosclerotic heart disease of native coronary artery without angina pectoris; F17.210 Nicotine dependence, cigarettes, uncomplicated; Z88.5 Allergy status to narcotic agent; Z88.6 Allergy status to analgesic agent; Z79.899 Other long term (current) drug therapy
CPT/HCPCS: 0223U; 36415; 36600; 51702; 71045; 71275; 74018; 80053; 81001; 82803; 82962; 83605; 83735; 84145; 84484; 85007; 85025; 86140; 87040; 87070; 87077; 87081; 87186; 87205; 87636; 89220; 93005; 93306; 94002; 94003; 94640; 94660; 94667; 94761; 97110; 97162; 97165; 97530; 99285; J0696; J1650; J1956; J2405; J2470; J2704; J2919; J3010; J3360; J3375; J7030; Q9967